=== PATIENT | female | born 1985 | race African-American/Black ===

== ENCOUNTER 2017-03-26 23:53 | Emergency (ER) | payer MEDICAID, SELFPAY ==
[2017-03-26 23:54] VITALS: BP 108/73; PULSE 77; RESP 16; TEMP 36.7; O2SAT 96; BMI 23.8
--- NOTE | 2017-03-27 00:20 | ED.DCSUM_ITS ---
- ER Visit Summary Date of Service: 03/27/17 Chief Complaint: [] Injury to right rib History of Present Illness: The patient is a 31 F patient was kicked in the right rib by her child while breast-feeding 4 hours ago. She is having some mild pain in the right rib when she takes deep breath. No shortness of breath. No home treatment. Physical Examination: [] Vital signs reviewed General: Well-nourished well-developed Head: Normocephalic atraumatic Eyes: Pupils equal round and reactive to light extraocular movements intact ENT: TMs clear no hemotympanum no trauma Neck: Nontender full range of motion Cardiovascular: Regular rate rhythm no murmurs normal S1-S2 Respiratory: No distress clear to auscultation bilaterally chest nontender Abdomen: Soft mild tenderness right mid anterior rib. No bony step-off deformity or contusion or swelling nondistended normal bowel sounds no masses Back: Nontender no CVA tenderness Extremities: Nontender active range of motion ?4 extremities no trauma Skin: Normal color no trauma Neuro alert oriented cranial nerves II through XII intact normal strength sensation reflexes Test Results: [] Emergency Department Course and Treatment: [] Patient reassured she just has a rib contusion. I do not feel she has a fracture. She will use NSAIDs and follow-up as an outpatient. I do not feel she needs an x-ray. Treatment Plan: [] Disposition: [] Impression: [] Right rib contusion This note was generated with [employer] dictation software. It may contain incorrect words, spelling, and punctuation that were not noted in review of the chart prior to signing ED Disposition - Plan for ED Patient: Chief Complaint: Chest Other Referrals: Mayra Maurer MD [Primary Care Provider] -
--- NOTE | 2017-03-27 00:20 | ED.DEP ---
ED Disposition - Plan for ED Patient: Disposition: Home or Assisted Living Chief Complaint: Chest Other Instructions: ED Contusion Rib Referrals: Mayra Maurer MD [Primary Care Provider] -
--- NOTE | 2017-03-27 00:32 | ED.RN ---
PT EDUCATED ON DISCHARGE INSTRUCTIONS AND VERBALIZES UNDERSTANDING. PT AMBULATORY HOME BY SELF WITH HER CHILDREN. EDUCATED TO TAKE IBUPROFEN AT HOME NEEDED. ICE CONTUSED ARE 20 MINUTES EVERY COUPLE HOURS.
== END 2017-03-27 00:33 | disposition home or self-care (01) ==
PROVIDERS: Emergency Provider Emergency Medicine; Family Provider Internal Medicine; PCP Internal Medicine
DX: S20.211A Contusion of right front wall of thorax, initial encounter (principal); W50.1XXA Accidental kick by another person, initial encounter; Y93.F9 Activity, other caregiving; Y92.9 Unspecified place or not applicable; Y99.9 Unspecified external cause status; Z79.899 Other long term (current) drug therapy
CPT/HCPCS: 99282

== ENCOUNTER 2017-05-01 23:05 | Emergency (ER) | payer MEDICAID, SELFPAY ==
[2017-05-01 23:06] VITALS: BP 113/72; PULSE 86; RESP 20; TEMP 36.7; O2SAT 99; BMI 24.0
--- NOTE | 2017-05-01 23:29 | ED.DCSUM_ITS ---
- ER Visit Summary Date of Service: 05/01/17 Chief Complaint: [] Child hit her left eye History of Present Illness: The patient is a 31 F [] her small 2-year-old child inadvertently moved her hand striking her in the left eye hours ago she feels if her eyes irritated she denies really any pain no change in vision no photophobia no blurriness she wears glasses she has history of severe anxiety with mental disorder she is concerned that something serious injury to her eye, her Physical Examination: [] No distress the left eye the anterior chambers intact the pupil reacts well there is no slit-lamp available for exam fluoroscopy seen tetracaine applied with cobalt blue light there is no signs of any uptake, her visual acuity is normal as she is able to read the small numbers on her medical record number sticker Face is unremarkable as is her cranial nerve exam Test Results: [] Emergency Department Course and Treatment: [] In all the above the patient at this time she will be started on some ice and topical ointments for ophthalmology as needed tomorrow for further management of this condition Treatment Plan: [] Disposition: [] Impression: [] Left eye irritation after inadvertently being struck by small child This note was generated with [employer] dictation software. It may contain incorrect words, spelling, and punctuation that were not noted in review of the chart prior to signing ED Disposition - Plan for ED Patient: Chief Complaint: Eye Problem Referrals: Mayra Maurer MD [Primary Care Provider] -
--- NOTE | 2017-05-01 23:29 | ED.DEP ---
ED Disposition - Plan for ED Patient: Chief Complaint: Eye Problem Instructions: Corneal Injury Referrals: Mayra Maurer MD [Primary Care Provider] - Jayleen Suresh MD [STAFF PHYSICIAN] -
[2017-05-01] MEDS: Erythromycin Base 1 OPTH.TUBE 1 APPLIC LEFT EYE (23:33)
[2017-05-01] MEDS: Tetracaine 0.5% Ophthalmic Bottle 1 DRP LEFT EYE (23:34)
== END 2017-05-01 23:47 | disposition home or self-care (01) ==
LOC: ED 23:44
PROVIDERS: Emergency Provider Emergency Medicine; Family Provider Internal Medicine; PCP Internal Medicine
DX: S05.92XA Unspecified injury of left eye and orbit, initial encounter (principal); W50.0XXA Accidental hit or strike by another person, initial encounter; Y93.9 Activity, unspecified; Y92.9 Unspecified place or not applicable; Y99.9 Unspecified external cause status; F41.9 Anxiety disorder, unspecified
CPT/HCPCS: 99282

== ENCOUNTER 2017-05-07 20:59 | Emergency (ER) | payer MEDICAID, SELFPAY ==
[2017-05-07 21:00] VITALS: BP 123/82; PULSE 77; RESP 16; TEMP 36.7; O2SAT 99; BMI 23.1
--- NOTE | 2017-05-07 22:17 | EKG12_ITS ---
Test Reason : CP Blood Pressure : / mmHG Vent. Rate : 077 BPM Atrial Rate : 077 BPM P-R Int : 134 ms QRS Dur : 088 ms QT Int : 380 ms P-R-T Axes : 061 077 070 degrees QTc Int : 430 ms Normal sinus rhythm Normal ECG Confirmed by DARWIN WATSON ([id number]), photo editor ELYSSA JACOBS ([id number]) on 05/12/2017 1:54:31 PM Referred By: RENAY Confirmed By:DARWIN WATSON
[2017-05-07] MEDS: 0.9% Normal Saline 1,000 ML 1000 ML IV (22:31)
[2017-05-07 22:57] LABS: Absolute Lymphocyte Count 3.02 X10^3/ul (0.83-4.51); Basophil# 0.04 X10^3/uL; Basophil% 0.5 % (0-1); Eosinophil# 0.46 X10^3/uL; Eosinophils% 5.7 % (0-5); Hematocrit 37.6 % (37-47); Hemoglobin 11.8 g/dl (12.0-15.0); Lymphocyte # 3.02 X10^3/ul (4.0); Lymphocyte % 37.4 % (19-41); Mean Corp Hgb Conc 31.4 g/gl (32-36); Mean Corpuscular Hgb 25.7 pg (27.0-32.0); Mean Corpuscular Volume 81.9 fL (81-99); Mean Platelet Vol. 11.2 fl (6.2-12.0); Monocyte# 0.55 X10^3/uL; Monocyte% 6.8 % (0-10); Neutrophil # 3.99 X10^3/uL (2.7-7.7); Neutrophil % 49.4 % (47-70); POSITIVE COUNT NO; POSITIVE DIFFERENTIAL NO; POSITIVE MORPHOLOGY NO; Platelet Count 225 K/mm3 (150-450); RBC Distribution Width CV 14.2 % (11.6-14.6); RBC Distribution Width SD 42.4 fl (35.1-43.9); Red Blood Count 4.59 M/mm3 (4.2-5.4); White Blood Count 8.1 K/mm3 (4.4-11.0)
[2017-05-07 23:01] LABS: Anion Gap 6 (5-15); BUN 11 mg/dL (7-18); BUN/Creat Ratio 15.6 RATIO (10-20); Calcium,Total 8.5 mg/dL (8.5-10.1); Chloride 110 mmol/L (98-107); Creatinine, Serum 0.71 mg/dL (0.55-1.02); EST Glomerular Filtration Rate 103 mL/min (>60); Est Glom Filt Rate - Afr Amer 124 mL/min (>60); Estimated Creatinine Clearance 100.05 ml/min; Glucose 83 mg/dL (74-106); Potassium 4.4 mmol/L (3.5-5.1); Sodium Level 143 mmol/L (136-145)
--- NOTE | 2017-05-07 23:13 | ED.VISSUMM ---
- ER Visit Summary Date of Service: 05/07/17 Chief Complaint: Chest pain History of Present Illness: The patient is a 31 F presenting for evaluation secondary chest pain. Patient states that today at approximately 1300 she started to have chest pain that radiated down her left arm. Patient states that she has had similar symptoms in the past with anxiety as well as her esophagitis, but this did not alleviate throughout the course of the day today. Patient states that it started when she was driving her kids and they were screaming in the car. She denies any cardiac risk factors any DVT or PE risk factors she is a non-smoker review of systems otherwise negative. Physical Examination: Vital signs are within normal limits, patient is afebrile. General: Patient is well-nourished well-developed and in no acute distress. Head: Normocephalic, atraumatic Eyes: Pupils equal round and reactive bilaterally, extra occular motion intact bialterally ENT: Moist mucous membranes Neck: Supple, no lymphadenopathy, no JVD, no meningismus CVS: Heart regular rate and rhythm, no murmurs, rubs or gallops, radial pulses 2+ bilaterally Resp: Respirations nondistressed, lung sounds clear bilaterally Abdomen: Soft, nontender, nondistended, no palpable masses, normal bowel sounds Back: Nontender Extremities: Nontender, atraumatic, active full range of motion, no peripheral edema Skin: warm, no rashes, no petechia Neuro: Alert and oriented x 4, CN 2-12 intact, no lateralizing neurological defecits Psyc: Normal affect Test Results: CBC, chemistry, troponin within normal limits Emergency Department Course and Treatment: Patient presented for evaluation secondary chest pain. Patient has had continuous pain over the course of the last 9 hours. She had a negative cardiac enzyme. Her pain improved with GI cocktail. She has a MANNY risk score of 0 heart score of 0 I do not believe that she requires further workup. Potentially this was secondary to her esophagitis or anxiety. She was recommended follow-up with primary care. Disposition: Discharge Impression: 1. Noncardiac chest pain 2. Anxiety This note was generated with [employer] software. It may contain incorrect words, spelling, and punctuation that were not noted in review of the chart prior to signing ED Disposition - Plan for ED Patient: Disposition: Home or Assisted Living Chief Complaint: Anxiety Diagnosis: Anxiety Instructions: ED Stress React Referrals: Mayra Maurer MD [Primary Care Provider] - As Needed
--- NOTE | 2017-05-07 23:16 | ED.DCSUM_ITS ---
- ER Visit Summary Date of Service: 05/07/17 Chief Complaint: Chest pain History of Present Illness: The patient is a 31 F presenting for evaluation secondary chest pain. Patient states that today at approximately 1300 she started to have chest pain that radiated down her left arm. Patient states that she has had similar symptoms in the past with anxiety as well as her esophagitis, but this did not alleviate throughout the course of the day today. Patient states that it started when she was driving her kids and they were screaming in the car. She denies any cardiac risk factors any DVT or PE risk factors she is a non-smoker review of systems otherwise negative. Physical Examination: Vital signs are within normal limits, patient is afebrile. General: Patient is well-nourished well-developed and in no acute distress. Head: Normocephalic, atraumatic Eyes: Pupils equal round and reactive bilaterally, extra occular motion intact bialterally ENT: Moist mucous membranes Neck: Supple, no lymphadenopathy, no JVD, no meningismus CVS: Heart regular rate and rhythm, no murmurs, rubs or gallops, radial pulses 2 + bilaterally Resp: Respirations nondistressed, lung sounds clear bilaterally Abdomen: Soft, nontender, nondistended, no palpable masses, normal bowel sounds Back: Nontender Extremities: Nontender, atraumatic, active full range of motion, no peripheral edema Skin: warm, no rashes, no petechia Neuro: Alert and oriented x 4, CN 2-12 intact, no lateralizing neurological defecits Psyc: Normal affect Test Results: CBC, chemistry, troponin within normal limits Emergency Department Course and Treatment: Patient presented for evaluation secondary chest pain. Patient has had continuous pain over the course of the last 9 hours. She had a negative cardiac enzyme. Her pain improved with GI cocktail. She has a MANNY risk score of 0 heart score of 0 I do not believe that she requires further workup. Potentially this was secondary to her esophagitis or anxiety. She was recommended follow-up with primary care. Disposition: Discharge Impression: 1. Noncardiac chest pain 2. Anxiety This note was generated with [employer] software. It may contain incorrect words, spelling, and punctuation that were not noted in review of the chart prior to signing ED Disposition - Plan for ED Patient: Disposition: Home or Assisted Living Chief Complaint: Anxiety Diagnosis: Anxiety Instructions: ED Stress React Referrals: Mayra Maurer MD [Primary Care Provider] - As Needed
[2017-05-07 23:23] VITALS: BP 114/78; PULSE 81; RESP 23; O2SAT 99
== END 2017-05-07 23:23 | disposition home or self-care (01) ==
PROVIDERS: Emergency Provider Emergency Medicine; Family Provider Internal Medicine; PCP Internal Medicine
DX: R07.89 Other chest pain (principal); F41.9 Anxiety disorder, unspecified; Z79.899 Other long term (current) drug therapy; Z87.19 Personal history of other diseases of the digestive system
CPT/HCPCS: 80048; 84484; 85025; 93005; 96360; 99285; J7030; A4216

== ENCOUNTER 2017-06-26 11:03 | Emergency (ER) | payer MEDICAID, SELFPAY ==
[2017-06-26 11:05] VITALS: BP 111/81; PULSE 90; RESP 16; TEMP 36.6; O2SAT 100; BMI 24.5
[2017-06-26] MEDS: 0.9% Normal Saline 1,000 ML 999 ML IV (11:45)
[2017-06-26] MEDS: Ondansetron 4 MG/2 ML Vial IV (11:50)
[2017-06-26] MEDS: Acetaminophen 500 MG Tablet 1000 MG PO (11:50)
--- NOTE | 2017-06-26 12:04 | ED.DCSUM_ITS ---
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 She reports that she has congestion that began 3 weeks ago[address] She saw Dr. García 1 week ago and was told this was viral. She went to urgent care 2 days ago and was placed on doxycycline. States that now she feels nauseated. She denies any fever or chills. She has right ear pain. She denies any abdominal pain, vomiting, or diarrhea. She reports that she has a thumping headache that is similar to her prior headaches. Is 10 out of 10 severity. Physical Examination: Vitals: Stable. Afebrile. General: Well-nourished and well-developed. Head: Normocephalic atraumatic. HEENT: TMs are within normal limits. She does have swollen turbinates. Neck: Supple, no lymphadenopathy. No JVD. Nontender. Cardiovascular: Regular rate and rhythm. No murmurs. Respiratory: No respiratory distress. Clear to auscultation bilaterally. Abdominal: Soft, nontender, nondistended, normal bowel sounds. No guarding, rebound, or peritoneal signs. Back: Nontender. Extremities: Nontender, no edema. Skin: Normal color, no rash. Neurologic: Alert and oriented ?3. Cranial nerves II through XII are intact. Normal strength and sensation. Psych: Normal affect. Emergency Department Course and Treatment: Had an IV placed and was given a liter bolus normal saline. She is given Tylenol for pain. She is resting comfortably. Treatment Plan: Discussed the patient that antibiotics are not indicated for this and that if she is nauseated from the doxycycline I would stop taking it. She is given a prescription for Flonase. He refused decongestants. Instructed to follow-up her primary care physician 1 week if not improving. Disposition: To home in improved and stable condition. Impression: 1. Sinus congestion. This note was generated with [email or web address] dictation software. It may contain incorrect words, spelling, and punctuation that were not noted in review of the chart prior to signing ED Disposition - Plan for ED Patient: Disposition: Home or Assisted Living Chief Complaint: Cold Sx Instructions: ED Sinusitis No Abx Prescriptions: Fluticasone Propionate [Flonase Allergy Relief] 9.9 ml NS DAILY #1 bottle Referrals: Mayra Maurer MD [Primary Care Provider] - 1 Week if not improving
[2017-06-26 12:53] VITALS: BP 115/70; PULSE 85; RESP 14; O2SAT 98
== END 2017-06-26 12:54 | disposition home or self-care (01) ==
LOC: ED 12:07
PROVIDERS: Emergency Provider Emergency Medicine; Family Provider Internal Medicine; PCP Internal Medicine
DX: R09.81 Nasal congestion (principal); R51 Headache; R11.0 Nausea; H92.01 Otalgia, right ear
CPT/HCPCS: 96361; 96374; 99283; J7030; A4216; J2405

== ENCOUNTER → 2017-08-07 14:12 | Outpatient (CLI) | payer MEDICAID, SELFPAY ==
[2017-08-11 20:09] LABS: Alternaria tenuis <0.10 kU/L (Class 0); Ash, White <0.10 kU/L (Class 0); Aspergillus fumigatus <0.10 kU/L (Class 0); Bermuda Grass <0.10 kU/L (Class 0); Birch <0.10 kU/L (Class 0); Black Walnut <0.10 kU/L (Class 0); Cat Hair / Dander,Stand <0.10 kU/L (Class 0); Cedar, Mountain <0.10 kU/L (Class 0); Cladosporium herbarum <0.10 kU/L (Class 0); Cockroach, American 0.36 kU/L (Class I); Cottonwood <0.10 kU/L (Class 0); Dog Epithelia <0.10 kU/L (Class 0); Elm, American White <0.10 kU/L (Class 0); Immunoglobulin E 30 IU/mL (0-100); Maple/Box Elder <0.10 kU/L (Class 0); Mulberry, White <0.10 kU/L (Class 0); Oak, White <0.10 kU/L (Class 0); Pecan <0.10 kU/L (Class 0); Penicillium Notatum <0.10 kU/L (Class 0); Pigweed, Rough <0.10 kU/L (Class 0); Ragweed, Short/Common <0.10 kU/L (Class 0); Russian Thistle <0.10 kU/L (Class 0); Sheep Sorrel <0.10 kU/L (Class 0); Sycamore, American <0.10 kU/L (Class 0); Timothy Grass <0.10 kU/L (Class 0)
[2017-08-12 15:32] LABS: Mouse Urine <0.10 kU/L (Class 0)
== END ==
PROVIDERS: Family Provider Internal Medicine; PCP Internal Medicine; Visit Provider Otolaryngology
DX: T78.40XA Allergy, unspecified, initial encounter (principal)
CPT/HCPCS: 36415; 82785; 86003

== ENCOUNTER 2017-09-01 05:44 | Emergency (ER) | payer MEDICAID, SELFPAY ==
[2017-09-01 05:45] VITALS: BP 109/76; PULSE 67; RESP 18; TEMP 36.4; O2SAT 100; BMI 26.3
--- NOTE | 2017-09-01 06:07 | RAD_ITS ---
STUDY: X-RAY - PELVIS AND RIGHT HIPS REASON FOR EXAM: Female, 32 years old. Pain in the hip. Patient was kicked in the hip by a child. TECHNIQUE: Radiological exam, right hip, with pelvis, 3 views COMPARISON: None. FINDINGS: There is a non-specific bowel gas pattern. Normal visualized soft tissue structures. Normal bilateral iliac wings, sacroiliac joints and visualized sacrum. Normal bilateral superior and inferior pubic rami. Normal pubic symphysis. Normal bilateral ischial tuberosities. There is a 9 mm well-circumscribed sclerotic density in the right femoral neck, which is likely to represent a benign bone island. Otherwise normal visualized right femoral head. Normal right acetabulum. Normal right hip joint. RAD/Hip 2-3 Views with Pelvis IMPRESSION: No demonstrated fracture, dislocation, or destructive osseous lesion. Electronically Signed: Rey Schwab MD at 7:01 EDT , Service support ,
--- NOTE | 2017-09-01 06:10 | ED.DCSUM_ITS ---
- ER Visit Summary Date of Service: 09/01/17 Chief Complaint: Right hip pain History of Present Illness: The patient is a 32 F presenting with right hip pain ?2 days. Patient states that she was playing with her 3-year-old and she was kicked in the right hip. She has had persistent pain for the past 2 days. She has pain with ambulation. She also now complains of burning with urination. Denies fever or other complaints. Physical Examination: Vitals are stable. Patient is afebrile. Alert no acute distress. HEENT exam is unremarkable. Neck is supple. Lungs are clear and equal bilaterally. Heart is regular rate and rhythm. Abdomen is soft nontender nondistended. Back: Right paraspinal lumbar muscle tenderness, no midline tenderness Extremities right lateral hip tenderness with active full range of motion Skin is warm and dry. No focal neurologic deficit. Remainder of exam is unremarkable. Emergency Department Course and Treatment: X-ray of right hip shows no acute process. Urinalysis is unremarkable. Patient is given a prescription for naproxen. She is advised to follow-up with her primary care physician. Advised to return to ED for worsening complaints. Disposition: Discharge home Impression: Right hip contusion This note was generated with [employer] dictation software. It may contain incorrect words, spelling, and punctuation that were not noted in review of the chart prior to signing ED Disposition - Plan for ED Patient: Chief Complaint: Lower Extremity Injury Referrals: Mayra Maurer MD [Primary Care Provider] -
[2017-09-01 06:57] LABS: Bacteria 0 SEEN /hpf (None Seen); Mucous, Urine 0 SEEN /hpf (<or=2+); Red Blood Cells-Urine 0 SEEN /hpf (0-5); White Blood Cells 0 SEEN /hpf (0-5)
[2017-09-01 07:00] LABS: Color, Urine Straw (Yellow); Glucose, Dipstick Normal (Normal); Ketone-Dipstick Negative (Negative); Leukocyte Esterase-Dipstick Negative /ul (Negative); Nitrite-Dipstick Negative (Negative); Occult Blood-Urine Negative /ul (Negative); Protein-Dipstick Negative (Negative); Specific Gravity, Urine 1.005 (1.002-1.030); Urine Bilirubin Dipstick Negative (Negative); Urine Clarity Clear (Clear); Urine Urobilinogen Normal (Normal); Urine pH 6.5 (5.0 - 8.0)
[2017-09-01 07:06] LABS: Squamous Epithelial Cells - UA 0-5 SEEN /hpf (5-10)
--- NOTE | 2017-09-01 07:40 | ED.DEP ---
ED Disposition - Plan for ED Patient: Chief Complaint: Lower Extremity Injury Instructions: ED Contusion Hip Prescriptions: Naproxen [Naprosyn] 500 mg PO BID PRN #20 tablet Referrals: Mayra Maurer MD [Primary Care Provider] -
== END 2017-09-01 08:05 | disposition home or self-care (01) ==
LOC: ED 06:38
PROVIDERS: Emergency Provider Emergency Medicine; Family Provider Internal Medicine; PCP Internal Medicine
DX: S70.01XA Contusion of right hip, initial encounter (principal); W50.1XXA Accidental kick by another person, initial encounter; Y93.9 Activity, unspecified; Y92.9 Unspecified place or not applicable; Y99.9 Unspecified external cause status; R30.0 Dysuria; F32.9 Major depressive disorder, single episode, unspecified; F41.9 Anxiety disorder, unspecified; Z79.899 Other long term (current) drug therapy
CPT/HCPCS: 73502; 81001; 99282

== ENCOUNTER → 2017-09-26 13:54 | Outpatient (CLI) | payer MEDICAID, SELFPAY ==
--- NOTE | 2017-09-26 13:58 | RAD_ITS ---
STUDY: X-RAY - LUMBAR SPINE REASON FOR EXAM: Female, 32 years old. Low back pain. TECHNIQUE: 5 view(s) of the lumbar spine were obtained. COMPARISON: None FINDINGS: Normal lumbar lordosis. There is no substantial scoliosis. There is a normal alignment of the vertebrae. Normal vertebral bodies and endplates. Normal disc space heights. There is no demonstrated fracture. The soft tissue structures are unremarkable. RAD/L/S Spine Min 4 Views IMPRESSION: Normal x-ray examination of the lumbar spine. Electronically Signed: Partha Talbert MD at 23:57 EDT , Service support ,
== END ==
PROVIDERS: Family Provider Internal Medicine; PCP Internal Medicine; Visit Provider Chiropractor
DX: S33.5XXA Sprain of ligaments of lumbar spine, initial encounter (principal); X58.XXXA Exposure to other specified factors, initial encounter; Y93.9 Activity, unspecified; Y92.9 Unspecified place or not applicable; Y99.9 Unspecified external cause status
CPT/HCPCS: 72110

== ENCOUNTER 2017-09-29 00:51 | Emergency (ER) | payer MEDICAID, SELFPAY ==
[2017-09-29 00:52] VITALS: BP 127/98; PULSE 84; RESP 15; TEMP 36.4; O2SAT 98; BMI 24.0
--- NOTE | 2017-09-29 01:02 | ED.VISSUMM ---
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 She reports that this morning while at work she hit her left ankle in a wheelchair. She reports that she worked for 12 hours after this. She did not have pain throughout that. However, she reports that tonight she has a burning pain Zeta 10 with walking and 6 out of 10 at rest. She denies any other complaints. Physical Examination: Vitals: Stable. Afebrile. General: Well-nourished and well-developed. Head: Normocephalic atraumatic. Neck: Supple, no lymphadenopathy. No JVD. Nontender. Cardiovascular: Regular rate and rhythm. No murmurs. Respiratory: No respiratory distress. Clear to auscultation bilaterally. Abdominal: Soft, nontender, nondistended, normal bowel sounds. No guarding, rebound, or peritoneal signs. Back: Nontender. Extremities: Soft tissue swelling is moderately tender to palpation over the anterior lateral portion of her left ankle. She has no pain over the medial or lateral malleoli. No pain over the base the fifth metatarsal proximal fibula., no edema. Skin: Normal color, no rash. Neurologic: Alert and oriented ?3. Cranial nerves II through XII are intact. Normal strength and sensation. Psych: Normal affect. Emergency Department Course and Treatment: I did offer to obtain x-rays. Patient does not want these. She refused pain medications. Treatment Plan: Patient will be discharged instructions to use Tylenol and/or ibuprofen for pain. Follow-up Dr. Maurer in 1 week if not improving. Disposition: To home in improved and stable condition. Impression: 1. Contusion left ankle. This note was generated with [employer] dictation software. It may contain incorrect words, spelling, and punctuation that were not noted in review of the chart prior to signing ED Disposition - Plan for ED Patient: Chief Complaint: Lower Extremity Injury Instructions: ED Contusion Foot Referrals: Mayra Maurer MD [Primary Care Provider] - 1 Week if not improving
== END 2017-09-29 01:17 | disposition home or self-care (01) ==
PROVIDERS: Emergency Provider Emergency Medicine; Family Provider Internal Medicine; PCP Internal Medicine
DX: S90.02XA Contusion of left ankle, initial encounter (principal); W22.8XXA Striking against or struck by other objects, initial encounter; Y93.9 Activity, unspecified; Y92.89 Other specified places as the place of occurrence of the external cause; Y99.0 Civilian activity done for income or pay; F32.9 Major depressive disorder, single episode, unspecified; F41.9 Anxiety disorder, unspecified; Z79.899 Other long term (current) drug therapy
CPT/HCPCS: 99282

== ENCOUNTER 2017-10-05 04:20 | Emergency (ER) | payer MEDICAID, SELFPAY ==
[2017-10-05 04:21] VITALS: BP 128/88; PULSE 79; RESP 16; TEMP 36.4; O2SAT 100; BMI 25.4
[2017-10-05 04:26] VITALS: BP 110/67; BP 117/71; BP 123/89; PULSE 71; PULSE 74; PULSE 87
--- NOTE | 2017-10-05 04:37 | ED.VISSUMM ---
- ER Visit Summary Date of Service: 10/05/17 Chief Complaint: Subjective dizziness History of Present Illness: The patient is a 32 F thinks she may be dehydrated. Past medical history of anxiety and depression. Prior anemia. Patient states that she feels dizzy. Denies any current headache or head trauma. Denies any trouble moving her arms or legs. No visual change. No speech change. No numbness. Think she may not be drinking enough. Denies nausea, vomiting, diarrhea or melena. Denies any fever, chest pain or shortness of breath. Physical Examination: Well appearing young female. Vital signs are stable and afebrile. Blood pressure 128/88. Pulse ox 100% on room air. No distress. H EENT exam normal. Moist wheeze membranes. Pupils round reactive light. Extra motions are intact. No facial droop. Normal speech. Neck nontender. No lymphadenopathy. Lungs clear to auscultation bilaterally. Heart regular rhythm rate about 80 no murmur chest wall nontender. Abdomen soft nontender. Normal bowel sounds no peritoneal signs. She is moving all 4 extremities. They are neurovascularly intact. 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 Bilateral equal symmetrical dorsi and plantar flexion. Calves are nontender without edema. She has normal range of motion of both upper and lower extremities. Back exam is nontender. Neurologic exam is normal. NIH is 0. Fingertip to nose and heel to choi all within normal limits. Normal strength and sensation bilaterally. Negative Hallpike maneuver. Test Results: None other than orthostatic vital signs are negative. Emergency Department Course and Treatment: Clinically patient has a normal exam. Hallpike (-). Has no signs of any abnormality or neurological findings. Her neurologic exam is completely normal. Treatment Plan: Orally hydrate at home. Discharge. Disposition: Discharge Impression: Acute dizziness uncertain etiology Anxiety This note was generated with [employer] dictation software. It may contain incorrect words, spelling, and punctuation that were not noted in review of the chart prior to signing ED Disposition - Plan for ED Patient: Chief Complaint: Dizziness Referrals: Mayra Maurer MD [Primary Care Provider] -
--- NOTE | 2017-10-05 04:41 | ED.DEP ---
ED Disposition - Plan for ED Patient: Disposition: Home or Assisted Living Chief Complaint: Dizziness Instructions: ED Dizziness [facility] Referrals: Mayra Maurer MD [Primary Care Provider] - 3-5 Days if not improving Additional Instructions: Plenty of fluids and rest. Your exam tonight was normal. Orally hydrate with water and/or Gatorade.
== END 2017-10-05 04:48 | disposition home or self-care (01) ==
PROVIDERS: Emergency Provider Emergency Medicine; Family Provider Internal Medicine; PCP Internal Medicine
DX: R42 Dizziness and giddiness (principal); D64.9 Anemia, unspecified; F32.9 Major depressive disorder, single episode, unspecified; F41.9 Anxiety disorder, unspecified; Z79.899 Other long term (current) drug therapy
CPT/HCPCS: 99283

== ENCOUNTER 2017-10-18 22:15 | Emergency (ER) | payer MEDICAID, SELFPAY ==
[2017-10-18 22:15] VITALS: BP 130/75; PULSE 91; RESP 16; TEMP 37.2; O2SAT 98; BMI 24.0
--- NOTE | 2017-10-18 22:27 | ED.VISSUMM ---
- ER Visit Summary Date of Service: 10/18/17 Chief Complaint: Mouth pain History of Present Illness: The patient is a 32 F with mouth pain for several days. The patient had dental filling. She believes the drilled nicked the side of her bucchal mucosa. She noted a blister to the area that popped. The area is painful, worse with chewing. No trouble opening her mouth. No tongue elevation. No difficulty talking, breathing, or swallowing. No fever or systemic symptoms. Physical Examination: Afebrile and vital signs unremarkable. Patient has a superficial ulcer to her right bucchal mucosa adjacent to her mandibular molars, approximately 1 cm? in total area. No bleeding or discharge noted. The remainder of her exam is unremarkable. Test Results: None indicated Emergency Department Course and Treatment: Patient treated with a GI cocktail. She may use a mix of Benadryl and Maalox at home, swish and spit as needed for pain. I suspect this area will heal fairly quickly. She should follow-up with her dentist for recheck. Return sooner if she is unable to follow-up or if she has any complications. Treatment Plan: As above Disposition: Discharge Impression: 1. Oral superficial ulceration This note was generated with [employer] dictation software. It may contain incorrect words, spelling, and punctuation that were not noted in review of the chart prior to signing ED Disposition - Plan for ED Patient: Chief Complaint: Dental Referrals: Mayra Maurer MD [Primary Care Provider] -
--- NOTE | 2017-10-18 22:31 | ED.DCSUM_ITS ---
- ER Visit Summary Date of Service: 10/18/17 Chief Complaint: Mouth pain History of Present Illness: The patient is a 32 F with mouth pain for several days. The patient had dental filling. She believes the drilled nicked the side of her bucchal mucosa. She noted a blister to the area that popped. The area is painful, worse with chewing. No trouble opening her mouth. No tongue elevation. No difficulty talking, breathing, or swallowing. No fever or systemic symptoms. Physical Examination: Afebrile and vital signs unremarkable. Patient has a superficial ulcer to her right bucchal mucosa adjacent to her mandibular molars , approximately 1 cm? in total area. No bleeding or discharge noted. The remainder of her exam is unremarkable. Test Results: None indicated Emergency Department Course and Treatment: Patient treated with a GI cocktail. She may use a mix of Benadryl and Maalox at home, swish and spit as needed for pain. I suspect this area will heal fairly quickly. She should follow-up with her dentist for recheck. Return sooner if she is unable to follow-up or if she has any complications. Treatment Plan: As above Disposition: Discharge Impression: 1. Oral superficial ulceration This note was generated with [employer] dictation software. It may contain incorrect words, spelling, and punctuation that were not noted in review of the chart prior to signing ED Disposition - Plan for ED Patient: Chief Complaint: Dental Referrals: Mayra Maurer MD [Primary Care Provider] -
--- NOTE | 2017-10-18 22:32 | ED.DEP ---
ED Disposition - Plan for ED Patient: Chief Complaint: Dental Instructions: ED Jackeline Oglesby Additional Instructions: follow up with your dentist for a recheck
[2017-10-18] MEDS: Mag Hydrox/Al Hydrox/Simeth 30 ML UDC PO (22:42)
[2017-10-18 22:46] VITALS: RESP 18
== END 2017-10-18 22:47 | disposition home or self-care (01) ==
PROVIDERS: Emergency Provider Emergency Medicine; Family Provider Internal Medicine; PCP Internal Medicine
DX: K12.1 Other forms of stomatitis (principal); Z87.891 Personal history of nicotine dependence; Z79.899 Other long term (current) drug therapy
CPT/HCPCS: 99283

== ENCOUNTER 2017-10-27 18:54 | Emergency (ER) | payer MEDICAID, SELFPAY ==
[2017-10-27 18:55] VITALS: BP 112/71; PULSE 81; RESP 16; TEMP 36.7; O2SAT 97; BMI 24.0
--- NOTE | 2017-10-27 19:10 | ED.VISSUMM ---
- ER Visit Summary Date of Service: 10/27/17 Chief Complaint: Hand twitching History of Present Illness: The patient is a 32 F who states that her hand is twitching. It started this morning. She states that her hand felt weak. She had a couple coffee this morning it started after that. Denies any pain. No other symptoms. Physical Examination: Left hand exam reveals 5 out of 5 strength. She has no tremors at this time. No muscle spasms. Her sensation is intact. She is neurovascularly intact. Test Results: None performed Emergency Department Course and Treatment: Patient has no physical exam findings at this time. She will increase hydration and will follow up with her PCP Treatment Plan: [] Disposition: Discharge Impression: Muscle spasm, resolved This note was generated with [employer] dictation software. It may contain incorrect words, spelling, and punctuation that were not noted in review of the chart prior to signing ED Disposition - Plan for ED Patient: Chief Complaint: Upper Extremity Injury Referrals: Mayra Maurer MD [Primary Care Provider] -
--- NOTE | 2017-10-27 19:12 | ED.DEP ---
ED Disposition - Plan for ED Patient: Disposition: Home or Assisted Living Chief Complaint: Upper Extremity Injury Instructions: ED Spasm Muscle Referrals: Mayra Maurer MD [Primary Care Provider] -
== END 2017-10-27 19:16 | disposition home or self-care (01) ==
PROVIDERS: Emergency Provider Emergency Medicine; Family Provider Internal Medicine; PCP Internal Medicine
DX: M62.838 Other muscle spasm (principal)
CPT/HCPCS: 99282

== ENCOUNTER 2017-11-24 18:15 | Emergency (ER) | payer MEDICAID, SELFPAY ==
[2017-11-24 18:15] VITALS: BP 124/81; PULSE 95; RESP 18; TEMP 37.1; O2SAT 99; BMI 24.0
--- NOTE | 2017-11-24 19:02 | ED.DCSUM_ITS ---
- ER Visit Summary Date of Service: 11/24/17 Chief Complaint: Dental pain History of Present Illness: The patient is a 32 F who was seen by her dentist 5 days ago for right lower dental pain. She states nothing was done at that time. She went back today due to continued pain. She states she was told there is an infected tooth and she was prescribed clindamycin. Plan is to do a root canal in 2 days. Patient states she was not given anything for pain and she has not been able to sleep secondary to the pain. She states she has multiple food allergies and has to drink a special formula for calories. She states anything that she tries to drink jeter and stings in her mouth. Physical Examination: Vital signs are unremarkable. Patient sitting upright in the bed. She is tearful. Head neck examination reveals no facial edema or erythema. TMs are clear bilaterally. Intraoral examination reveals right mandibular third molar to be discolored and tender. She has mild surrounding gum edema. Uvula is midline. There is no trismus. She has moist mucous membranes. She is speaking with a strong voice. Neck is supple. Heart is regular rate and rhythm. Lung sounds are clear. Test Results: [] Emergency Department Course and Treatment: Patient did drive herself here to the emergency room. I will give her a short course of Percocet along with Zofran. She was given clindamycin. Prescription was written for 150 mg, 1 tab every 6 hours. I advised her she could take 2 tabs every 6 hours for correct dosing. She is to see the dentist in 2 days as planned. Treatment Plan: [] Disposition: Discharge Impression: Odontalgia This note was generated with [employer] dictation software. It may contain incorrect words, spelling, and punctuation that were not noted in review of the chart prior to signing ED Disposition - Plan for ED Patient: Chief Complaint: Dental Referrals: Mayra Maurer MD [Primary Care Provider] -
--- NOTE | 2017-11-24 19:02 | ED.DEP ---
ED Disposition - Plan for ED Patient: Disposition: Home or Assisted Living Chief Complaint: Dental Instructions: ED Tooth Pain Prescriptions: Ondansetron [Zofran Odt] 4 mg PO Q6H PRN PRN #10 tablet PRN Reason: Nausea Oxycodone HCl/Acetaminophen [Percocet 5/325] 1 tablet PO Q6H PRN PRN 3 Days #12 tablet PRN Reason: Pain Additional Instructions: Follow-up with your dentist on Friday as scheduled.
[2017-11-24 19:11] VITALS: BP 115/80; PULSE 90; RESP 15; O2SAT 98
== END 2017-11-24 19:19 | disposition home or self-care (01) ==
PROVIDERS: Emergency Provider Emergency Medicine; Family Provider Internal Medicine; PCP Internal Medicine
DX: K08.89 Other specified disorders of teeth and supporting structures (principal); Z91.018 Allergy to other foods; Z79.899 Other long term (current) drug therapy
CPT/HCPCS: 99282

== ENCOUNTER 2017-12-08 20:21 | Emergency (ER) | payer MEDICAID, SELFPAY ==
[2017-12-08 20:21] VITALS: BP 133/74; PULSE 73; RESP 14; TEMP 37; O2SAT 97; BMI 23.6
--- NOTE | 2017-12-08 20:39 | EKG12_ITS ---
Test Reason : CP Blood Pressure : / mmHG Vent. Rate : 068 BPM Atrial Rate : 068 BPM P-R Int : 142 ms QRS Dur : 078 ms QT Int : 388 ms P-R-T Axes : 073 088 084 degrees QTc Int : 412 ms Normal sinus rhythm Normal ECG Confirmed by RAVINDRA RAYMOND, MARTY ([id number]), food editor ELYSSA JACOBS ([id number]) on 12/11/2017 11:12:46 AM Referred By: ED PHYSICIAN Confirmed By:MARTY WAITE MD
[2017-12-08 20:56] LABS: Absolute Neutrophil Count 4.2 X10^3/uL (2.0-7.7); Basophil# 0.03 X10^3/uL; Basophil% 0.4 % (0-1); Eosinophil# 0.26 X10^3/uL; Eosinophils% 3.4 % (0-5); Hematocrit 38.8 % (37-47); Hemoglobin 12.2 g/dl (12.0-15.0); Lymphocyte % 35.6 % (19-41); Mean Corp Hgb Conc 31.4 g/gl (32-36); Mean Corpuscular Hgb 25.5 pg (27.0-32.0); Mean Corpuscular Volume 81.2 fL (81-99); Mean Platelet Vol. 11.5 fl (6.2-12.0); Monocyte# 0.36 X10^3/uL; Monocyte% 4.7 % (0-10); Neutrophil # 4.24 X10^3/uL (2.7-7.7); Neutrophil % 55.9 % (47-70); POSITIVE COUNT NO; POSITIVE DIFFERENTIAL NO; POSITIVE MORPHOLOGY NO; Platelet Count 263 K/mm3 (150-450); RBC Distribution Width CV 13.4 % (11.6-14.6); RBC Distribution Width SD 39.8 fl (35.1-43.9); Red Blood Count 4.78 M/mm3 (4.2-5.4); White Blood Count 7.6 K/mm3 (4.4-11.0)
[2017-12-08 21:04] VITALS: O2SAT 99
--- NOTE | 2017-12-08 21:15 | RAD_ITS ---
STUDY: X-RAY CHEST REASON FOR EXAM: Female, 32 years old. Chest tightness TECHNIQUE: Single AP portable view of the chest. COMPARISON: None. FINDINGS: The lungs are clear and expanded. There is no demonstrated pleural abnormality. Normal size heart. Normal mediastinum and miguel. Normal visualized pulmonary arteries. Normal visualized aortic arch and descending thoracic aorta. Normal visualized thoracic spine. Normal visualized ribs, clavicles, and shoulders. There is no demonstrated abnormality of the visualized soft tissue structures of the upper abdomen. RAD/Chest 1 View (Portable) IMPRESSION: Normal x-ray examination of the chest. Electronically Signed: Chris Jaramillo MD at 21:42 EDT , Service support ,
[2017-12-08 21:23] LABS: Anion Gap 5 (5-15); BUN 8 mg/dL (7-18); BUN/Creat Ratio 8.8 RATIO (10-20); Calcium,Total 8.7 mg/dL (8.5-10.1); Chloride 107 mmol/L (98-107); EST Glomerular Filtration Rate 77 mL/min (>60); Est Glom Filt Rate - Afr Amer 93 mL/min (>60); Estimated Creatinine Clearance 78.21 ml/min; Glucose 90 mg/dL (74-106); Potassium 4.6 mmol/L (3.5-5.1); Sodium Level 138 mmol/L (136-145)
[2017-12-08 22:21] VITALS: BP 114/88; PULSE 68; RESP 17; O2SAT 100
[2017-12-08] MEDS: 0.9% Normal Saline 1,000 ML 999 ML IV (22:22)
--- NOTE | 2017-12-08 23:10 | ED.DCSUM_ITS ---
- ER Visit Summary Date of Service: 12/08/17 Chief Complaint: Chest tightness, anxiety History of Present Illness: The patient is a 32 F who reports chest tightness today. She is not sure if is related to anxiety or not. She denies shortness of breath or diaphoresis. Physical Examination: Vital signs unremarkable. Patient sitting upright in bed. She is in no acute distress. She does have dry mucous membranes. Heart is regular rate and rhythm. Lung sounds are clear. She does have anterior chest wall tenderness on either side of the sternum. There is no crepitus. Abdomen is soft nontender. Neuro exam is unremarkable. Test Results: EKG is sinus at 68 with no sign of acute ischemia. CBC and chemistry studies normal. Troponin negative. Chest x-ray unremarkable. Emergency Department Course and Treatment: Patient is given a liter IV fluids along with Toradol. She will be given a prescription for Toradol tabs at home if needed for chest wall pain. Treatment Plan: [] Disposition: Discharge Impression: Chest wall strain This note was generated with [employer] dictation software. It may contain incorrect words, spelling, and punctuation that were not noted in review of the chart prior to signing ED Disposition - Plan for ED Patient: Chief Complaint: Chest Pain Referrals: Mayra Maurer MD [Primary Care Provider] -
--- NOTE | 2017-12-08 23:10 | ED.DEP ---
ED Disposition - Plan for ED Patient: Disposition: Home or Assisted Living Chief Complaint: Chest Pain Instructions: ED Strain Chest Wall Prescriptions: Ketorolac [Toradol] 10 mg PO Q6H PRN #14 tablet PRN Reason: Pain Referrals: Mayra Maurer MD [Primary Care Provider] - 1 Week if not improving
[2017-12-08] MEDS: Ketorolac 30 MG/ML Syringe IV (23:19)
[2017-12-08 23:21] VITALS: BP 117/93; PULSE 76; RESP 18; O2SAT 100
== END 2017-12-08 23:25 | disposition home or self-care (01) ==
PROVIDERS: Emergency Provider Emergency Medicine; Family Provider Internal Medicine; PCP Internal Medicine
DX: S29.012A Strain of muscle and tendon of back wall of thorax, initial encounter (principal); X58.XXXA Exposure to other specified factors, initial encounter; Y93.9 Activity, unspecified; Y92.9 Unspecified place or not applicable; Y99.9 Unspecified external cause status; F32.9 Major depressive disorder, single episode, unspecified; F41.9 Anxiety disorder, unspecified; Z79.899 Other long term (current) drug therapy
CPT/HCPCS: 71045; 80048; 84484; 85025; 93005; 96361; 96374; 99284; A4216

== ENCOUNTER 2018-05-02 16:10 | Emergency (ER) | payer MEDICAID, SELFPAY ==
[2018-05-02 16:10] VITALS: BMI 23.8
[2018-05-02 16:11] VITALS: BP 125/71; PULSE 92; RESP 14; TEMP 36.7; O2SAT 98; BMI 23.5
[2018-05-02 16:38] VITALS: RESP 18; O2SAT 94
--- NOTE | 2018-05-02 17:15 | ED.DCSUM_ITS ---
- ER Visit Summary Date of Service: 05/02/18 Chief Complaint: Dizziness, aura History of Present Illness: The patient is a 32 F intermittent vertigo symptoms past week, feels like she is spinning. None currently. Today had some oral in the left eye is resolved. No nausea or vomiting. States increased thirst. Mild headache right side today is resolved. No head injuries. Dysuria today. Currently on menstrual period. No fevers. Dealing with sinus congestion for the past week. Did see ENT in [place] for potato allergies, did not discuss any dizziness. Did not discussed congestion. Physical Examination: General: Alert and oriented ?3, no acute distress HEENT: Normocephalic, atraumatic. Moist mucosa membranes. Tender palpation frontal and maxillary sinus right no swollen turbinates. TMs normal bilaterally. Neck: supple, nontender. No meningismus. Cardiovascular: Regular rate and rhythm, no murmurs Respiratory: Normal breath sounds, symmetric, no distress Abdomen: Soft, nontender, nondistended Extremities: Nontender, no edema, pulses intact ?4 Neuro: no focal neurological deficits. Test Results: Hemoglobin 12.4, creatinine 2.74 glucose 83. Urine notes blood, hCG negative. Emergency Department Course and Treatment: Patient no focal neurologic deficits. Transient aura sensations, reports of vertigo symptoms that resolved. She is concerned for dehydration, she requests IV with fluids. 1 L given labs checked stable urine with blood however she is on her menstrual period. No abdominal or flank pain for concerns for kidney stones. Patient did not want any medications. She is feeling better on reevaluation. She will follow-up with her eye doctor for evaluation of the aura symptoms from left eye. Treatment Plan: [] Disposition: Discharge Impression: 1. Transient vertigo stable 2. Transient aura left eye This note was generated with [employer] dictation software. It may contain incorrect words, spelling, and punctuation that were not noted in review of the chart prior to signing ED Disposition - Plan for ED Patient: Disposition: Home or Assisted Living Diagnosis: Vertigo, Aura Instructions: ED Vertigo Unspecified Referrals: Mayra Maurer MD [Primary Care Provider] - 3-5 Days if not improving Additional Instructions: Follow-up with your eye doctor for evaluation of the aura symptoms on left eye.
[2018-05-02 17:32] LABS: Bacteria 0 SEEN /hpf (None Seen); Mucous, Urine 0 SEEN /hpf (<or=2+)
[2018-05-02 17:36] LABS: Color, Urine Straw (Yellow); Glucose, Dipstick Normal (Normal); Ketone-Dipstick Negative (Negative); Leukocyte Esterase-Dipstick Negative /ul (Negative); Nitrite-Dipstick Negative (Negative); Occult Blood-Urine 250 /ul (Negative); Protein-Dipstick Negative (Negative); Specific Gravity, Urine 1.015 (1.002-1.030); Urine Bilirubin Dipstick Negative (Negative); Urine Clarity Cloudy (Clear); Urine Urobilinogen Normal (Normal)
[2018-05-02 17:39] LABS: Internal QC Validated? YES +Cl - CLEAR BKGD; Pregnancy, Urine Negative Negative
[2018-05-02 17:40] LABS: Absolute Lymphocyte Count 1.96 X10^3/ul (0.83-4.51); Absolute Neutrophil Count 3.8 X10^3/uL (2.0-7.7); Basophil# 0.03 X10^3/uL; Basophil% 0.5 % (0-1); Eosinophil# 0.22 X10^3/uL; Eosinophils% 3.5 % (0-5); Hematocrit 38.9 % (37-47); Hemoglobin 12.4 g/dl (12.0-15.0); Lymphocyte # 1.96 X10^3/ul (4.0); Lymphocyte % 31.2 % (19-41); Mean Corp Hgb Conc 31.9 g/gl (32-36); Mean Corpuscular Volume 81.6 fL (81-99); Mean Platelet Vol. 11.4 fl (6.2-12.0); Monocyte# 0.25 X10^3/uL; Neutrophil # 3.82 X10^3/uL (2.7-7.7); Neutrophil % 60.6 % (47-70); Platelet Count 242 K/mm3 (150-450); RBC Distribution Width CV 13.6 % (11.6-14.6); RBC Distribution Width SD 40.6 fl (35.1-43.9); Red Blood Count 4.77 M/mm3 (4.2-5.4); White Blood Count 6.3 K/mm3 (4.4-11.0)
[2018-05-02 17:41] LABS: POSITIVE COUNT NO; POSITIVE DIFFERENTIAL NO; POSITIVE MORPHOLOGY NO
[2018-05-02] MEDS: 0.9% Normal Saline 1,000 ML 1000 ML IV (17:47)
[2018-05-02 17:51] LABS: Squamous Epithelial Cells - UA 0-5 SEEN /hpf (5-10)
[2018-05-02 17:52] LABS: Red Blood Cells-Urine 50-100 SEEN /hpf (0-5)
[2018-05-02 17:52] LABS: Anion Gap 6 (5-15); BUN 8 mg/dL (7-18); BUN/Creat Ratio 10.8 RATIO (10-20); Calcium,Total 8.5 mg/dL (8.5-10.1); Chloride 107 mmol/L (98-107); Creatinine, Serum 0.74 mg/dL (0.55-1.02); EST Glomerular Filtration Rate 96 mL/min (>60); Est Glom Filt Rate - Afr Amer 117 mL/min (>60); Estimated Creatinine Clearance 95.12 ml/min; Glucose 83 mg/dL (74-106); Sodium Level 139 mmol/L (136-145)
[2018-05-02 17:53] LABS: White Blood Cells 0-5 SEEN /hpf (0-5)
[2018-05-02 19:09] VITALS: RESP 14
== END 2018-05-02 19:09 | disposition home or self-care (01) ==
PROVIDERS: Emergency Provider Emergency Medicine; Family Provider Internal Medicine; PCP Internal Medicine
DX: R42 Dizziness and giddiness (principal); R63.1 Polydipsia; R30.0 Dysuria; Z72.0 Tobacco use; Z79.899 Other long term (current) drug therapy
CPT/HCPCS: 80048; 81001; 81025; 85025; 96360; 99283; J7030; A4216

== ENCOUNTER → 2018-08-06 11:11 | Outpatient (CLI) | payer MEDICAID, SELFPAY ==
--- NOTE | 2018-08-06 11:52 | US_ITS ---
STUDY: ULTRASOUND TRANSVAGINAL CLINICAL: Female, 33 years old. Pelvic pain. TECHNIQUE: Transabdominal and Transvaginal COMPARISON: None. FINDINGS: Normal uterine size measuring 7.5 x 4.7 x 4.1 cm in maximal craniocaudal dimension. Probable tiny 4 mm calcification. There are no myometrial masses. There is mild heterogeneity of the myometrium of uncertain significance. Normal endometrial thickness measuring 6.7 mm. Endometrial echoes are hyperechoic. There are no endometrial masses, and there is no fluid in the endometrial cavity. Nabothian cyst of the uterine cervix. Normal right ovary, measuring 3.5 x 1.9 x 1.9 cm. There are multiple follicles without a dominant cyst. None are larger than 1 cm. Normal left ovary, measuring 3.1 x 1.8 x 1.7 cm. There are multiple follicles without a dominant cyst. None are larger than 1 cm. There is no free fluid in the pelvis. Normal bladder contour. Polycystic ovary disease: There is no specific finding to support polycystic ovarian disease.. US/Transvaginal Non- IMPRESSION: No specific abnormality seen. Possible mild heterogeneity of the uterine myometrium of uncertain significance. No definite polycystic ovarian disease. Electronically Signed: Partha Talbert MD at 15:56 EDT , Service support ,
--- NOTE | 2018-08-06 11:52 | US_ITS ---
STUDY: ULTRASOUND TRANSVAGINAL CLINICAL: Female, 33 years old. Pelvic pain. TECHNIQUE: Transabdominal and Transvaginal COMPARISON: None. FINDINGS: Normal uterine size measuring 7.5 x 4.7 x 4.1 cm in maximal craniocaudal dimension. Probable tiny 4 mm calcification. There are no myometrial masses. There is mild heterogeneity of the myometrium of uncertain significance. Normal endometrial thickness measuring 6.7 mm. Endometrial echoes are hyperechoic. There are no endometrial masses, and there is no fluid in the endometrial cavity. Nabothian cyst of the uterine cervix. Normal right ovary, measuring 3.5 x 1.9 x 1.9 cm. There are multiple follicles without a dominant cyst. None are larger than 1 cm. Normal left ovary, measuring 3.1 x 1.8 x 1.7 cm. There are multiple follicles without a dominant cyst. None are larger than 1 cm. There is no free fluid in the pelvis. Normal bladder contour. Polycystic ovary disease: There is no specific finding to support polycystic ovarian disease.. US/Pelvic (Non ) IMPRESSION: No specific abnormality seen. Possible mild heterogeneity of the uterine myometrium of uncertain significance. No definite polycystic ovarian disease. Electronically Signed: Partha Talbert MD at 15:56 EDT , Service support ,
== END ==
PROVIDERS: Family Provider Internal Medicine; PCP Internal Medicine
DX: R10.2 Pelvic and perineal pain (principal)
CPT/HCPCS: 76830; 76856

== ENCOUNTER 2019-01-10 18:14 | Emergency (ER) | payer MEDICAID, SELFPAY ==
[2019-01-10 18:14] VITALS: BP 140/83; PULSE 91; RESP 16; TEMP 36.9; O2SAT 99; BMI 23.6
--- NOTE | 2019-01-10 20:27 | ED.VIS.GEN ---
History of Present Illness Chief Complaint: Dizziness Informant: Patient Onset: Today Context: Sudden Onset - w/ turning head Timing: Intermittent Quality: spinning. off-balance, like she is going to fall Location: head Current Severity: Mild Maximum Severity: Moderate Worsened by: turning head, changing position Relieved by: remaining still Associated Symptoms: dry mouth. denies headache, lightheadedness, n/v, periph neuro sx, MS chg Narrative: Patient states she has had a sore, white tongue or weeks and has been put on nystatin swish and swallow for it, she does not feel it is helping. She does not have any immunocompromising conditions. She has a history of a traumatic brain injury. She presents concerned that she is dehydrated because she has been dizzy today. She discusses her dizziness as vertigo, feeling like she is going to fall, feeling like there is spinning, every time she moves her head. It is better when she remains still. She has no near syncope. It makes her feel like she needs to hold onto something. She has been drinking bottled water all day. She is essentially demanding IV fluids because she feels dehydrated. She has had normal urination. 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 - Past Medical History (1) TBI (traumatic brain injury) Status: Chronic Past Medical History - Allergies and Home Meds Allergies/Adverse Reactions: Allergies doxycycline Allergy (Verified 01/10/19 18:16) Hives Penicillins Allergy (Verified 01/10/19 18:16) Unknown Primary Care Physician: Mayra Maurer MD [Primary Care Provider] - 3-5 Days if not improving Smoking Status: Never smoker Drugs: None Review of Systems General: Denies: Chills, Fever, Sweats Eyes: Denies: Visual changes - bilaterally, Diplopia ENT: Denies: Bilateral ear pain, Rhinorrhea, Sore throat Cardiovascular: Denies: Chest pain, Palpitations Respiratory: Denies: Dyspnea, Cough Gastrointestinal: Denies: Abdominal pain, Nausea, Vomiting Genitourinary: Denies: Dysuria, Hematuria, Frequency Musculoskeletal: Denies: Back pain, Extremity Pain Skin: Denies: Rash, Wounds Neurological: Reports: - - vertigo. see HPI.. Denies: Headache, Weakness, Numbness Physical Exam Vital Signs/Narrative: Vital Signs Temp Pulse Resp BP Pulse Ox 01/10/19 18:14 98.5 F 91 16 140/83 H 99 General: Well nourished, Well developed, No Acute Distress Head: Normocephalic, Atraumatic Eyes: Perrl, EOMI, - - horiz nystagmus. no vertical or rotatory nystagmus. ENT: Moist mucous membranes, No rhinorrhea, TM's clear, - - Posterior oropharynx clear and normal. No trismus. No asymmetry. No exudates. Fairly unremarkable appearing nontender tongue.. Negative for: Nasal congestion, Sinus tenderness Neck: Supple, Nontender, No lymphadenopathy Skin: Normal color, No rash, No Trauma Neurological: Alert, Oriented x3, Cranial nerves II-XII grossly intact, Normal Strength, Normal Sensation, - - nml FTN and HTS Psychological: Normal affect, Normal Mood Diagnostic/Tx/Re-eval - Medical Decision Making Patient vital signs are normal. I do not see any thrush in her mouth. It looks fairly unremarkable at this time. I advised her and reassured her that she is indeed not dehydrated. She does not need any IV fluids which she is almost demanding. I advised her that she will be given instructions on peripheral vertigo and a prescription for meclizine to use if she wants, and she was given a pill prior to discharge. Advised to follow-up with regards to her mouth and throat. ED Disposition - Plan for ED Patient: Disposition: Home or Assisted Living Diagnosis: Peripheral vertigo Instructions: Benign Positional Vertigo Prescriptions: Meclizine HCl [Antivert] 25 mg PO 4X/DAY PRN PRN #16 tab PRN Reason: Dizziness Prescription Printed Referrals: Mayra Maurer MD [Primary Care Provider] - 3-5 Days if not improving
[2019-01-10 20:54] VITALS: BP 126/9; BP 126/97; PULSE 85; RESP 17
== END 2019-01-10 21:00 | disposition home or self-care (01) ==
PROVIDERS: Emergency Provider Emergency Medicine; Family Provider Internal Medicine; PCP Internal Medicine
DX: H81.399 Other peripheral vertigo, unspecified ear (principal); Z79.899 Other long term (current) drug therapy; Z88.0 Allergy status to penicillin; Z87.820 Personal history of traumatic brain injury
CPT/HCPCS: 99282

== ENCOUNTER 2019-03-31 15:02 | Emergency (ER) | payer MEDICAID, SELFPAY ==
[2019-03-31 15:04] VITALS: BP 131/82; PULSE 84; RESP 15; TEMP 36.7; O2SAT 100; BMI 23.3
--- NOTE | 2019-03-31 15:31 | CT_ITS ---
STUDY: CT ABDOMEN AND PELVIS WITHOUT CONTRAST REASON FOR EXAM: Female, 33 years old. LOW/MID ABDOMINAL PAIN. POLYCYSTIC OVARIAN DISEASE RADIATION DOSAGE (If Supplied By Facility): CTDIvol = ( 6.78 ) mGy, DLP = ( 327.00 ) mGycm TECHNIQUE: Transaxial images were obtained from the dome of the diaphragm to the symphysis pubis without oral contrast, and without intravenous contrast. Sagittal and coronal images were reconstructed. Individualized dose optimization techniques were used for this CT. COMPARISON: None. FINDINGS: The visualized lung bases are unremarkable. The visualized portions of the heart are within normal limits. Normal liver. There is partial non-visualization of the gallbladder, which may be secondary to either contraction or a prior cholecystectomy. Normal spleen. Normal pancreas. Normal bilateral adrenal glands. Normal right kidney. Normal left kidney. Normal visualized stomach. Normal small intestine. Normal colon. The appendix is visualized and appears normal. Unenhanced major vessels and retroperitoneum are grossly unremarkable. Normal urinary bladder. Normal visualized uterus. Partially cystic left adnexa may be better assessed with a dedicated pelvic sonogram as clinically indicated. Normal abdominal wall. Normal osseous structures. CT/Abdomen/Pelvis without Cont IMPRESSION: No acute intra-abdominal process is identified. Partially cystic left adnexa may be better assessed with a dedicated pelvic sonogram as clinically indicated. Electronically Signed: Conrad Fernández, at 16:57 EST Tel , Service support ,
[2019-03-31 15:34] VITALS: BP 124/70; PULSE 80; RESP 14; O2SAT 98
--- NOTE | 2019-03-31 15:38 | ED.DCSUM_ITS ---
- ER Visit Summary Date of Service: 03/31/19 Chief Complaint: [Abdominal pain] History of Present Illness: The patient is a 33 F presents the emergency department with complaint of abdominal pain is started yesterday. Patient states pain is continuous and rates it currently as an 8 out of 10. Pain is more in the suprapubic region and feels that sometimes in the left flank. She denies urinary symptoms of pain or burning. She denies frequency. She denies hematuria. She is had no fever. She is had no vomiting or diarrhea. Patient states that in the past she was told she had PCOS but then was seen again and was told she did not have it. Patient unsure of her last menstrual period states that she has a hard time remembering things be from prior traumatic brain injury and has a hard time with short-term memory. Patient does have history of eosinophilic esophagitis. [] Physical Examination: HEENT-PERRLA, EOMI. Cranial nerves II through XII grossly intact. TMs clear. Mucous membranes moist. No adenopathy. Cardiovascular-regular rate and rhythm without murmur or ectopy Lungs-clear to auscultation, chest wall stable without crepitus or subcu emphysema Abdomen-normoactive bowel sounds, soft. Patient has tenderness over the suprapubic region. There is no rebound, rigidity, or peritoneal signs. Extremities-intact ?4, normal range of motion, normal pulses, atraumatic] Test Results: [CBC with differential obtained was normal. Chemistries were normal. Urinalysis was normal. hCG was negative. CT scan of the abdomen pelvis without contrast showed no acute intra-abdominal process. Patient was noted to have a partially cystic left adnexa which may be better assessed with dedicated pelvic sonogram.] Emergency Department Course and Treatment: [While in department patient had an IV line established. She did not want anything for pain. I discussed results with patient and discussed possibly obtaining an ultrasound to evaluate further as I suspect she may have an ovarian cyst that may be responsible for her pain. Patient states that she has 2 daughters that she needs to burr picker and she does not want to have that testing done today but she will follow-up with her PILE DRIVER OPERATOR HELPER.] Treatment Plan: [Patient will follow-up with her PILE DRIVER OPERATOR HELPER. Patient advised to use ibuprofen or Tylenol for discomfort. Patient advised to return if worsening pain, fever, vomiting, or conditions worsen anyway.] Disposition: [Discharged home in stable condition] Impression: [Abdominal pain Ovarian cyst] This note was generated with [employer] dictation software. It may contain incorrect words, spelling, and punctuation that were not noted in review of the chart prior to signing ED Disposition - Plan for ED Patient: Referrals: Mayra Maurer MD [Primary Care Provider] -
[2019-03-31 16:12] LABS: Mucous, Urine 0 SEEN /hpf (<or=2+); Red Blood Cells-Urine 0 SEEN /hpf (0-5); White Blood Cells 0 SEEN /hpf (0-5)
[2019-03-31 16:13] LABS: Absolute Lymphocyte Count 2.31 X10^3/uL (0.83-4.51); Absolute Neutrophil Count 7.5 X10^3/uL (2.0-7.7); Basophil# 0.04 X10^3/uL; Basophil% 0.4 % (0-1); Eosinophils% 1.9 % (0-5); Hemoglobin 12.2 g/dL (12.0-15.0); Lymphocyte # 2.31 X10^3/ul (4.0); Lymphocyte % 21.4 % (19-41); Mean Corp Hgb Conc 31.3 g/dL (32-36); Mean Corpuscular Hgb 25.4 pg (27.0-32.0); Mean Corpuscular Volume 81.3 fL (81-99); Mean Platelet Vol. 11.2 fl (6.2-12.0); Monocyte# 0.68 X10^3/uL; Monocyte% 6.3 % (0-10); NRBC Flagged by Analyzer 0 % (0-5); Neutrophil # 7.53 X10^3/uL (2.7-7.7); Neutrophil % 69.7 % (47-70); Platelet Count 283 K/mm3 (150-450); RBC Distribution Width CV 13.5 % (11.6-14.6); RBC Distribution Width SD 39.9 fl (35.1-43.9); White Blood Count 10.8 K/mm3 (4.4-11.0)
[2019-03-31 16:15] LABS: Color, Urine Yellow (Yellow); Glucose, Dipstick Normal (Normal); Ketone-Dipstick Negative (Negative); Leukocyte Esterase-Dipstick Negative /ul (Negative); Nitrite-Dipstick Negative (Negative); Occult Blood-Urine Negative /ul (Negative); Protein-Dipstick Negative (Negative); Specific Gravity, Urine 1.015 (1.002-1.030); Urine Bilirubin Dipstick Negative (Negative); Urine Clarity Clear (Clear); Urine Urobilinogen Normal (Normal)
[2019-03-31 16:23] LABS: Internal QC Validated? YES +Cl - CLEAR BKGD; Pregnancy, Serum, hCG Quali. NEGATIVE Negative
[2019-03-31 16:25] LABS: Anion Gap 4 (5-15); BUN 9 mg/dL (7-18); BUN/Creat Ratio 7.9 RATIO (10-20); Calcium,Total 8.9 mg/dL (8.5-10.1); Chloride 108 mmol/L (98-107); Creatinine, Serum 1.14 mg/dL (0.55-1.02); EST Glomerular Filtration Rate 58 mL/min (>60); Est Glom Filt Rate - Afr Amer 71 mL/min (>60); Estimated Creatinine Clearance 63.75 ml/min; Glucose 88 mg/dL (74-106); Potassium 3.8 mmol/L (3.5-5.1); Sodium Level 139 mmol/L (136-145)
[2019-03-31 16:28] LABS: Bacteria RARE /hpf (None Seen); Squamous Epithelial Cells - UA 0-5 SEEN /hpf (5-10)
--- NOTE | 2019-03-31 17:06 | ED.DEP ---
ED Disposition - Plan for ED Patient: Instructions: ABDOMINAL PAIN, Unknown Cause, (Female), Ovarian Cyst Referrals: Mayra Maurer MD [Primary Care Provider] - 3-5 Days Additional Instructions: see your ENGAGEMENT EXECUTIVE in 3-5 days
[2019-03-31 17:07] VITALS: BP 120/74; PULSE 75; PULSE 82; RESP 14; O2SAT 98
== END 2019-03-31 17:13 | disposition home or self-care (01) ==
LOC: ED 15:39
PROVIDERS: Emergency Provider Emergency Medicine; PCP Internal Medicine
DX: N83.209 Unspecified ovarian cyst, unspecified side (principal); K20.0 Eosinophilic esophagitis; Z87.820 Personal history of traumatic brain injury
CPT/HCPCS: 74176; 80048; 81001; 84703; 85025; 99283; A4216

== ENCOUNTER 2020-07-22 23:00 | Emergency (ER) | payer MEDICAID, SELFPAY ==
[2020-07-22 23:01] VITALS: BP 125/87; PULSE 88; RESP 15; TEMP 35.8; O2SAT 98; BMI 26.9
--- NOTE | 2020-07-22 23:12 | RAD_ITS ---
EXAM: XR LEFT FOOT COMPLETE, 3 OR MORE VIEWS : 1985 CLINICAL INDICATION: injury TECHNIQUE: Frontal, lateral and oblique views of the left foot. This report was created using [employer] report generation technology. COMPARISON: None. FINDINGS: BONES/JOINTS: Unremarkable. No acute fracture. No subluxation. Normal alignment. Preservation of the joint space. No sclerotic or destructive changes observed. SOFT TISSUES: Unremarkable. No soft tissue swelling or gas. No radiopaque foreign body. RAD/Foot min 3 Views IMPRESSION: Negative left foot x-rays. at 2329 Reported and signed by: Rico Hall MD Electronically Signed: Rico Hall MD at 23:28 EDT Tel , Service support ,
--- NOTE | 2020-07-22 23:13 | EDS_ITS ---
HPI History of Present Illness Chief Complaint: Lower Extremity Injury Informant: patient Narrative Narrative: 35-year-old female states tonight she tripped sustaining an injury to her left great toe. She denies any other injuries. [facility] Medical History (Updated 07/22/20 @ 23:[address] Ang Schofield DO) TBI (traumatic brain injury) Home Medications fluticasone propionate [Flonase Allergy Relief] 9.9 ml NS DAILY PRN 09/01/17 [History Last Taken Unknown] bupropion HCl 150 mg PO DAILY 01/10/19 [History Last Taken 01/10/19] meclizine 25 mg PO 4X/DAY PRN PRN #16 tab 01/10/19 [Rx Last Taken Unknown] nystatin 5 ml PO Q6H 01/10/19 [History Last Taken 01/10/19] Allergy/AdvReac Type Severity Reaction Status Date / Time doxycycline Allergy Hives Verified 07/22/20 23:04 Penicillins Allergy Unknown Verified 07/22/20 23:04 Surgical History (Updated 07/22/20 @ 23:[address] Ang Schofield DO) History of bunionectomy Social History (Updated 07/22/20 @ 23:[address] Ang Schofield DO) Smoking Status: Never smoker substance use type: does not use ROS ROS ED Constitutional Constitutional ED: Denies chills or weight loss Eyes Eyes: Denies change in vision or diplopia ENT ENT ED: Denies ear pain, rhinorrhea or sore throat Cardiovascular Cardiovascular: Denies chest pain, orthopnea, palpitations or racing heartbeat Respiratory/Chest Respiratory/Chest: Denies cough, dyspnea or orthopnea Gastrointestinal Gastrointestinal: Denies abdominal pain, diarrhea, nausea or vomiting Genitourinary Genitourinary ED: Denies dysuria, hematuria or urinary frequency Musculoskeletal Musculoskeletal: Reports other Details: See history of present illness ; Denies arthralgias or myalgias Integumentary Denies abscess or rash Neurologic Neurologic: Denies headache(s) or weakness Psychiatric Psychiatric: Denies anxiety, depression, suicidal ideation or suicidal thoughts Endocrine Endocrinology: Denies polydipsia, polyphagia or polyuria Allergic/Immunologic Allergic/Immunologic ED: Denies mouth swelling, tongue swelling or urticaria EXAM Physical Exam Const Vital Signs: 05/29/21 23:01 Temperature 96.5 F L Temperature Source Temporal Pulse Rate 88 Respiratory Rate 15 Blood Pressure 125/87 H Blood Pressure Mean 99 Pulse Ox 98 Oxygen Delivery Method Room Air Positive well nourished and well developed General Appearance ED: well developed HEENT Reports normocephalic, head/scalp atraumatic and moist mucous membranes Eyes PERRL and EOMs intact bilaterally Neck no lymphadenopathy, supple and no JVD Resp normal respiratory effort and clear to auscultation bilaterally Cardio regular rate, regular rhythm and no murmurs GI normal to inspection, nondistended, normoactive bowel sounds and non-tender Palpation: soft Back/Spine no CVA tenderness and normal ROM Extremity Extremity Narrative: Patient has tenderness at the left MTP joint. Mild swelling. There is no nail trauma General Extremety ED: Yes tenderness; Negative for edema General Extremity: Negative for edema Neuro oriented x3 and CN's II-XII intact bilaterally Sensorium / Orientation: alert Motor Exam: strength 5/5 throughout Psych mental status grossly normal Mood & Affect: Negative for depressed or tearful Skin no rashes or lesions noted and no wounds MDM MDM MDM Narrative Medical decision making narrative: My interpretation of the plain films of the left foot is no acute fracture. Patient will be discharged home with instructions for ice and anti-inflammatories. Follow-up with primary care 10 to 14 days if not improved Discharge Plan Triage Chief Complaint: Lower Extremity Injury ED Provider: Ang Schofield Dx/Rx/DC Orders Clinical Impression: Sprain of left foot Instructions: ED Foot Sprain Prescriptions: No Action fluticasone propionate [Flonase Allergy Relief] 9.9 ML Nemo.Susp 9.9 ml NS DAILY PRN (Reason: Nasal Congestion) RF: 0 nystatin 100,000.000 suspension 5 ml PO Q6H RF: 0 bupropion HCl 150 MG tablet extended release 24 hr 150 mg PO DAILY RF: 0 meclizine 25 MG tablet 25 mg PO 4X/DAY PRN PRN (Reason: Dizziness) Qty: 16 RF: 0 Primary Care Provider: Mayra Maurer Referrals: Mayra Maurer MD [Primary Care Provider] - 10-14 Days if not better Disposition Disposition: Home, self care
[2020-07-22 23:55] VITALS: RESP 12
== END 2020-07-22 23:55 | disposition home or self-care (01) ==
LOC: ED 23:40
PROVIDERS: Emergency Provider Emergency Medicine; PCP Internal Medicine
DX: S93.602A Unspecified sprain of left foot, initial encounter (principal); W18.40XA Slipping, tripping and stumbling without falling, unspecified, initial encounter; Z79.899 Other long term (current) drug therapy
CPT/HCPCS: 73630; 99282

== ENCOUNTER 2020-10-15 17:24 | Emergency (ER) | payer MEDICAID, SELFPAY ==
[2020-10-15 17:24] VITALS: BP 119/90; PULSE 106; RESP 16; TEMP 37.3; BMI 28.2
--- NOTE | 2020-10-15 17:43 | ED.VIS.LOWEX ---
HPI History of Present Illness Chief Complaint: Lower Extremity Injury Detail of Chief Complaint: Right leg injury Informant: patient Narrative Narrative: Patient presents to the emergency department with complaint of injury to the right thigh that occurred several hours ago. Patient states that her daughter was with her at a water park where she went down the slide. As the daughter was coming down a water slide she struck the patient on the right thigh with her foot. Patient was able to continue playing in the water for some time but started having increased discomfort to the thigh. She thinks it may just be a muscle bruise. Patient has been ambulatory. She denies any other complaints. [facility] Medical History (Updated 10/15/20 @ 17:[address] Kati Babcock, DO) Acute anxiety Foot fracture, left Foot fracture, right Panic attack TBI (traumatic brain injury) Home Medications fluticasone propionate [Flonase Allergy Relief] 9.9 ml NS DAILY PRN 09/01/17 [History Last Taken Unknown] bupropion HCl 300 mg PO DAILY 01/10/19 [History Last Taken 01/10/19] meclizine 25 mg PO 4X/DAY PRN PRN #16 tab 01/10/19 [Rx Last Taken Unknown] norgestimate-ethinyl estradiol [Issaquena-Linyah] 1 tab PO DAILY 07/22/20 [History Last Taken Unknown] Allergy/AdvReac Type Severity Reaction Status Date / Time doxycycline Allergy Hives Verified 10/15/20 17:24 Penicillins Allergy Unknown Verified 10/15/20 17:24 Surgical History (Updated 07/22/20 @ 23:33 by Amber Easton) History of bunionectomy Hx of breast reduction, elective Social History (Updated 07/22/20 @ 23:[address] Ang Schofield, ) Smoking Status: Never smoker substance use type: does not use ROS ROS ED Constitutional Constitutional ED: Reports systems reviewed and no addt'l complaints, except as documented; Denies body ache(s), change in weight or chills Eyes Eyes: Denies acute decrease in peripheral vision, change in vision, double vision or loss of vision ENT ENT ED: Reports none; Denies ear pain, lip swelling, loss taste/smell, neck pain, otalgia or sore throat Cardiovascular Cardiovascular: Reports none; Denies abdominal pain, chest pain with activity, leg edema, lightheadedness, palpitations, rapid heart rate or syncope Respiratory/Chest Respiratory/Chest: Reports none; Denies change in mental status, dry cough, dyspnea, hemoptysis, shortness of breath at rest or shortness of breath with exertion Gastrointestinal Gastrointestinal: Reports none; Denies abdominal pain, change in stool character, diarrhea, hematemesis, hematochezia, melena, rectal bleeding or vomiting Genitourinary Genitourinary ED: Reports none; Denies abdominal discomfort, anuria, dysuria, genital pain or polyuria Musculoskeletal Musculoskeletal: Reports none and other Details: Right leg injury ; Denies arthralgias, back pain, difficulty walking, extremity pain, muscle weakness or myalgias Integumentary Reports none; Denies abscess or rash Neurologic Neurologic: Reports none; Denies abnormal gait, confusion, focal weakness, frequent falls, headache(s), loss of vision, numbness, paresthesias, radicular pain, vertigo or weakness Psychiatric Psychiatric: Reports systems reviewed and no addt'l complaints, except as documented and none; Denies behavioral changes, confusion, difficulty concentrating, hallucinations, suicidal ideation, tactile hallucinations or visual hallucinations Endocrine Endocrinology: Denies none, cold intolerance, excessive sweating, fatigue or heat intolerance Hematologic/Lymphatic Hematologic/Lymphatic: Reports none; Denies anemia, easy bleeding or easy bruising Allergic/Immunologic Allergic/Immunologic ED: Denies as per HPI, none, lip swelling, mouth swelling, throat swelling, tongue swelling or hives EXAM Physical Exam Const Vital Signs: 10/15/20 17:24 Temperature 99.1 F Temperature Source Temporal Pulse Rate 106 H Respiratory Rate 16 Blood Pressure 119/90 H Blood Pressure Mean 99 Positive well nourished and well developed General Appearance ED: well developed and NAD HEENT Reports TM's clear and moist mucous membranes normocephalic and atraumatic; Negative for trauma or tenderness Tympanic Membrane ED: Yes TM's clear Eyes PERRL and EOMs intact bilaterally General Eye ED: Negative for pale conjunctiva or scleral icterus Neck no lymphadenopathy, supple and no JVD General: Negative for tenderness Chest Wall inspection of chest normal and palpation of chest normal Chest: Negative for tenderness Resp normal respiratory effort and clear to auscultation bilaterally Effort and Inspection: Negative for respiratory distress or pain with movement Auscultation: Negative for rhonchi, wheezes or diminished lung sounds Cardio regular rate, regular rhythm, S1 normal heart sound, S2 normal heart sound and no murmurs Peripheral Pulses: pulses 2+ throughout GI normal to inspection, nondistended, normoactive bowel sounds, soft to palpation, non-tender, non-distended and no masses Back/Spine no CVA tenderness and no thoracic nor lumbar tenderness Extremity Extremity Narrative: Evaluation of the right thigh reveals no ecchymosis or bruising. There is no deformity. No hematomas palpated. She has no real pain about the knee and she is ligamentously stable at the knee. She does have some tenderness palpation over the mid anterior thigh. General Extremety ED: Negative for edema General Extremity: Negative for edema Neuro oriented x3, CN's II-XII intact bilaterally, no sensory deficits noted and gait normal Sensorium / Orientation: awake, alert, oriented to person, oriented to place and oriented to time Motor Exam: strength 5/5 throughout and strength abnormal Psych mental status grossly normal Skin no rashes or lesions noted and no wounds MDM MDM MDM Narrative Medical decision making narrative: I discussed with patient that I did not feel x-rays were indicated. She is in agreement. Patient advised to ice the area and use ibuprofen or Tylenol for discomfort. 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 I will write her off work for tomorrow if she feels like she cannot work in the morning otherwise she will try to go to work. Discharge Plan Triage Chief Complaint: Lower Extremity Injury ED Provider: Kati Babcock Dx/Rx/DC Orders Clinical Impression: Contusion of right anterior thigh Instructions: ED Soft Tissue Contusion Prescriptions: No Action fluticasone propionate [Flonase Allergy Relief] 9.9 ML spray,suspension 9.9 ml NS DAILY PRN (Reason: Nasal Congestion) RF: 0 bupropion HCl 150 MG tablet extended release 24 hr 300 mg PO DAILY RF: 0 meclizine 25 MG tablet 25 mg PO 4X/DAY PRN PRN (Reason: Dizziness) Qty: 16 RF: 0 norgestimate-ethinyl estradiol [Issaquena-Linyah] 0.25-35 mg-mcg tablet 1 tab PO DAILY RF: 0 Primary Care Provider: Mayra Maurer Referrals: Mayra Maurer MD [Primary Care Provider] - 3-5 Days Disposition Disposition: Home, Self Care
== END 2020-10-15 17:56 | disposition home or self-care (01) ==
LOC: ED 17:51
PROVIDERS: Emergency Provider Emergency Medicine; PCP Internal Medicine
DX: S70.11XA Contusion of right thigh, initial encounter (principal); W50.0XXA Accidental hit or strike by another person, initial encounter; Y93.19 Activity, other involving water and watercraft; Y92.831 Amusement park as the place of occurrence of the external cause; Y99.9 Unspecified external cause status; F41.0 Panic disorder [episodic paroxysmal anxiety]; Z79.899 Other long term (current) drug therapy
CPT/HCPCS: 99282

== ENCOUNTER → 2021-01-26 13:01 | Outpatient (CLI) | payer MEDICAID, SELFPAY ==
[2021-01-26 13:36] LABS: Erythrocyte Sedimentation Rate 7 mm/hr (0-30)
[2021-01-26 13:59] LABS: CPK Total, Creatine Kinase 127 U/L (26-192); CRP < 2.90 mg/L (0.0-3.0); LDH 161 U/L (84-246)
[2021-01-31 12:08] LABS: Angiotensin Convert Enzyme 19 U/L (14-82); Cytoplasmic Ab (C-ANCA) <1:20 titer (Neg:<1:20); Endomysial Antibody IgA Negative (Negative); Immunoglobulin A 171 mg/dL (87-352); Immunoglobulin E 30 IU/mL (6-495); Immunoglobulin G 1037 mg/dL (586-1602)
[2021-01-31 15:19] LABS: Immunoglobulin M 96 mg/dL (26-217); Perinuclear Ab (P-ANCA) <1:20 titer (Neg:<1:20); t-Transglutaminase IgA <2 U/mL (0-3)
[2021-02-03 09:08] LABS: Beef <0.10 kU/L (Class 0); Corn <0.10 kU/L (Class 0); Egg, Whole <0.10 kU/L (Class 0); Milk (Cow) 0.11 kU/L (Class 0/I); Peanut <0.10 kU/L (Class 0); Pork <0.10 kU/L (Class 0); Soybean <0.10 kU/L (Class 0); Wheat <0.10 kU/L (Class 0)
[2021-02-03 12:35] LABS: Chocolate <0.10 kU/L (Class 0)
== END ==
PROVIDERS: PCP Internal Medicine; Referring Provider Internal Medicine Gastroenterology; Visit Provider Internal Medicine Gastroenterology
DX: K20.0 Eosinophilic esophagitis (principal)
CPT/HCPCS: 36415; 82164; 82550; 82784; 82785; 83516; 83615; 85652; 86003; 86005; 86140; 86255; 86256

== ENCOUNTER 2021-06-13 05:39 | Day surgery (SDC) | payer MEDICAID, SELFPAY ==
[2021-06-13] VITALS (7 sets, daily range): BP systolic 89–122; BP diastolic 60–95; PULSE 75–100; RESP 16–106; TEMP 36.3–36.5; O2SAT 98–100; BMI 25.4
[2021-06-13 06:11] LABS: Internal QC Validated? YES +Cl - CLEAR BKGD; Pregnancy, Urine Negative Negative
[2021-06-13] MEDS: Lactated Ringers 1,000 ML 15 ML IV (06:18)
--- NOTE | 2021-06-13 06:30 | IMM_PTH ---
PATIENT: MATTIE CARVER LOC: EN U#:[id number] AGE/SX: 36/F ROOM: RE06/13/[address]: Dr. Lowell Mitchell DO : 1985 BED: DIS: 06/13/2021 SPEC #: [id number] RECD: 06/14/21 08:50 STATUS: JULIO REHunter #: [id number] LORRAINE: 06/13/21 06:[address]: Lowell Mitchell DEPT: IMMUNOHISTOCHEMISTRY RECD BY: Courtney Camarena ENTERED: 06/14/21 08:50 SP TYPE: IMMUNO OTHR DR: Mayra Maurer MD Tissues: C - Stomach, NOS Procedures: H Pylori (initial) PHYSICIAN & INSTITUTION [place] [address] SPECIMEN INFORMATION: Tissue Source: C ? Gastric antrum Clinical Info: Eosinophilic esophagitis, abdominal pain Specimen Number: [id number] CPT code: 94231 METHODOLOGY: Deparaffinized sections of prefer/formalin-fixed tissue or PAP/DQ stained slides are incubated with monoclonal/polyclonal antibodies/oligonucleotide probes. Localization is made via biotin free immunoperoxidase method. Appropriate controls are performed and reacted as expected. Results on target cell population are indicated in the following table: RESULTS: ANTIBODY / CLONE RESULT Block C H Pylori (polyclonal) negative These tests were developed and their performance characteristics determined by [facility]. They may not have been cleared or approved by the U.S. Food and Drug Administration. The FDA has determined that such clearance or approval is not necessary. INTERPRETATION: C. Gastric antrum, biopsy: Negative for Helicobacter pylori organisms. AM:isabell 06/15/2021
--- NOTE | 2021-06-13 06:30 | EGD_PTH ---
PATIENT: MATTIE CARVER LOC: EN U#:[id number] AGE/SX: 36/F ROOM: RE06/13/[address]: Dr. Lowell Mitchell DO : 1985 BED: DIS: 06/13/2021 SPEC #: [id number] RECD: 06/13/21 13:26 STATUS: JULIO CLAUDIO #: [id number] LORRAINE: 06/13/21 06:[address]: Lowell Mitchell DEPT: SURGICAL PATHOLOGY RECD BY: Emily Montes ENTERED: 06/14/21 08:17 SP TYPE: EGD BIOPSY OT DR: Mayra Maurer MD Tissues: A - Duodenum, NOS B - Pylorus C - Gastric mucous membrane D - Esophagus, NOS Procedures: Special Stain Group II Surgery Specimen Level IV Alcian Blue/PAS (control) HEADER OPERATION[place] [place] PRE-OP DIAGNOSIS: Eosinophilic esophagitis, abdominal pain TISSUE SUBMITTED: A ? Duodenum biopsy, B ? Pylorus biopsy, C ? Gastric antrum for H. pylori and path, D ? Distal esophagus MICROSCOPIC DIAGNOSIS A. Duodenum, biopsy: Fragments of duodenal mucosa with mild nonspecific chronic inflammation. B. Pylorus, biopsy: Consistent with a fragment of duodenal mucosa, no pathologic diagnosis. C. Gastric antrum, biopsy: Mild gastritis. See microscopic description and comment. D. Distal esophagus, biopsy: Fragments of gastroesophageal mucosa with mild chronic inflammation. Intestinal metaplasia (goblet cell metaplasia) not identified. See comment. SJ:isabell 06/15/2021 COMMENT C. The results of immunohistochemistry for Helicobacter pylori will be reported separately ([id number]). D. Alcian blue/PAS stain with matched control is used in the evaluation of the specimen. MICROSCOPIC DESCRIPTION Slides are reviewed. C. The specimen shows fragments of gastric mucosa with chronic inflammatory cell infiltrates in the lamina propria consisting of lymphocytes and plasma cells, consistent with mild chronic gastritis. GROSS DESCRIPTION A - Received in fixative is one container labeled with the patient's name and designated duodenum biopsy. The specimen consists of multiple irregular fragments of light matthews soft tissue that in aggregate measure 1 x 0.5 x 0.1 cm. The specimen is totally submitted in one cassette. B - Received in fixative is one container labeled with the patient's name and designated pylorus biopsy. The specimen consists of one irregular fragment of light matthews soft tissue that measures 0.4 x 0.2 x 0.1 cm. The specimen is totally submitted in one cassette. C - Received in fixative is one container labeled with the patient's name and designated gastric antrum biopsy. The specimen consists of two irregular fragments of light matthews soft tissue that in aggregate measure 1 x 0.5 x 0.1 cm. The specimen is totally submitted in one cassette. D - Received in fixative is one container labeled with the patient's name and designated distal esophagus. The specimen consists of two irregular fragments of light matthews soft tissue that in aggregate measure 0.6 x 0.3 x 0.1 cm. The specimen is totally submitted in one cassette. / SJ:rg 06/14/2021 TC:3 CPT: 76746 x4, 46653
--- NOTE | 2021-06-13 06:32 | HP.PCM_ITS ---
History and Physical Date of Admission: 06/13/21 35 F who presents to the office today for management of eosinophilic esophagitis and abdominal pain. Multiple. She attributes multiple secondary to food allergies and possibly secondary to use of esophagitis. She was tried on pantoprazole therapy but it her joints hurt so she did not take the medicine. Most of her symptoms are bloating and abdominal pain. She does not have much gas or nausea. She has tried reducing her specific foods and has undergone allergy testing in the past. She was notified of having a milk allergy and also a environmental allergy to roaches. 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 She does not want to take PPI. She avoids triggers with food avoidance. Has eliminated dairy and gluten from her diet. Would like to see about getting an allergen panel done. XR fluoro esophagus performed 02/2018 noted luminal narrowing around C6-T1. Mild esophageal dysmotility identified. There is adequate clearance of the esophagus with a second instructed swallow. ED visit 03/31/19 for abdominal pain suprapubic and left flank. History of EOE. Short-term memory impaired due to previous brain injury. CT abd/pel 03/31/19 with partially cystic left adnexa which may be better assessed with pelvic sonogram. [facility] Musculoskeletal: Positive for back pain Exam Const General: cooperative and comfortable Nutritional Appearance: average body habitus and well nourished [facility] Head: normal to inspection Ears: hearing grossly normal bilaterally Nose: external nose normal Face and sinus: normal facial exam Mouth: oral mucosae normal Throat: posterior oropharynx normal Eyes General: appearance normal, both eyes and all related structures Neck Neck: normal visual inspection Chest Chest palpation & inspection: normal inspection of the chest and normal palpation of entire chest wall Resp Effort & Inspection: normal respiratory effort Auscultation: Bilateral: Clear to Auscultation Cardio Palpation: normal PMI Rate: regular rate Rhythm: regular rhythm GI Inspection: normal to inspection Auscultation: normal bowel sounds Percussion: normal to percussion Palpation: no hepatosplenomegaly Skin General: no rashes or lesions noted Neuro General: patient alert Extrem General: normal to inspection Psych Affect: normal affect Quality Reporting Tobacco Screening ([facility] 138) Smoking Status: Never smoker Assessment and Plan Assessment and Plan (1) Eosinophilic esophagitis: Status: Acute Orders: Orders: CPK Total, Creatine Kinase Today CRP Today Erythrocyte Sed Rate Today Angiotensin Convert Enzyme Today ANCA Today Celiac Disease Profile Today Immunoglobulin E Today Immunoglobulin G Today Immunoglobulin M Today Allergen, Rast Food Profile Today LDH Today Plan - Dr. Etienne Friend, DO: She will get an EGD to evaluate her upper esophagus and upper GI tract. We will also evaluate her stomach in small bowel for any signs of eosinophilic diseases. We will also get a serum IgE level. (2) Abdominal pain: Status: Acute Plan - Dr. Etienne Friend, DO: We will evaluate her upper GI tract. Since she does have a lactose allergy she could have small intestinal bacterial overgrowth. We will perform biopsies of the stomach and small bowel and check for H. pylori. We will also get above for now seen including biochemical analysis for rheumatoid arthritis, lupus, crest syndrome, Sjogren's syndrome, sarcoidosis. For the appropriate. I have re-examined the patient. There are no clinical changes since date of exam.
--- NOTE | 2021-06-13 06:50 | OP.CCLET_ITS ---
11/22/2021 Mayra Maurer Md Re : Upper GI endoscopy procedure for Johanna Hernandez Dear Erasto This procedure was performed on Sunday, June 13, 2021. My impressions and recommendations are as follows: Impressions : - LA Grade A reflux esophagitis. Biopsied. - Gastritis. Biopsied. - Erythematous mucosa in the pylorus. Biopsied. - Erythematous duodenopathy. Biopsied. Recommendations : - Discharge patient to home. - Resume previous diet. - Continue present medications. - Await pathology results. My findings are described in the full procedure note, which is enclosed. If I can be of further assistance, please feel free to contact me at . Sincerely, Lowell Mitchell, 06/13/2021 6:50:08 AM This report has been signed electronically.
--- NOTE | 2021-06-13 06:50 | OP.EGD_ITS ---
Patient Name: Johanna Hernandez Procedure Date: 06/13/2021 6:26 AM Date of : 1985 Age: 36 Procedure: Upper GI endoscopy Indications: Epigastric abdominal pain, Heartburn Providers: Lowell Mitchell DO Medicines: Sedation Required Anesthesia Staff Assistance Patient Profile: This is a 36 year old female. Refer to note in patient chart for documentation of history and physical. Patient has symptoms of acute abdominal cramping, acute abdominal distention and chronic epigastric abdominal pain. Complications: No immediate complications. Procedure: Pre-Anesthesia Assessment: - Prior to the procedure, a History and Physical was performed, and patient medications and allergies were reviewed. The risks and benefits of the procedure and the sedation options and risks were discussed with the patient. All questions were answered and informed consent was obtained. Patient identification and proposed procedure were verified by the physician in the pre-procedure area. Mental Status Examination: alert and oriented. Airway Examination: normal oropharyngeal airway and neck mobility. Respiratory Examination: clear to auscultation. CV Examination: normal. Prophylactic Antibiotics: The patient does not require prophylactic antibiotics. Prior Anticoagulants: The patient has taken no previous anticoagulant or antiplatelet agents. ASA Grade Assessment: II - A patient with mild systemic disease. After reviewing the risks and benefits, the patient was deemed in satisfactory condition to undergo the procedure. The anesthesia plan was to use moderate sedation / analgesia (conscious sedation). Immediately prior to administration of medications, the patient was re-assessed for adequacy to receive sedatives. The heart rate, respiratory rate, oxygen saturations, blood pressure, adequacy of pulmonary ventilation, and response to care were monitored throughout the procedure. The physical status of the patient was re-assessed after the procedure. After obtaining informed consent, the endoscope was passed under direct vision. Throughout the procedure, the patient's blood pressure, pulse, and oxygen saturations were monitored continuously. The gastroscope was introduced through the mouth, and advanced to the second part of duodenum. The upper GI endoscopy was accomplished without difficulty. The patient tolerated the procedure well. Moderate Sedation: Moderate (conscious) sedation was administered by the endoscopy nurse and supervised by the endoscopist. The patient's oxygen saturation, heart rate, blood pressure and response to care were monitored. Total physician intraservice time was 15 minutes. Scope In: 6:37:06 AM Scope Out: 6:43:33 AM Total Procedure Duration Time 0 hours 6 minutes 27 seconds Findings: LA Grade A (one or more mucosal breaks less than 5 mm, not extending between tops of 2 mucosal folds) esophagitis with no bleeding was found 37 to 40 cm from the incisors. Biopsies were taken with a cold forceps for histology. Verification of patient identification for the specimen was done. Estimated blood loss was minimal. Patchy mild inflammation characterized by erythema was found in the gastric antrum. Biopsies were taken with a cold forceps for histology. Verification of patient identification for the specimen was done. Estimated blood loss was minimal. Localized mildly erythematous mucosa without bleeding was found at the pylorus. Biopsies were taken with a cold forceps for histology. Verification of patient identification for the specimen was done. Estimated blood loss was minimal. Patchy mildly erythematous mucosa without active bleeding and with no stigmata of bleeding was found in the first portion of the duodenum. Biopsies were taken with a cold forceps for histology. Verification of patient identification for the specimen was done. Estimated blood loss was minimal. Impression: - LA Grade A reflux esophagitis. Biopsied. - Gastritis. Biopsied. - Erythematous mucosa in the pylorus. Biopsied. - Erythematous duodenopathy. Biopsied. Recommendation: - Discharge patient to home. - Resume previous diet. - Continue present medications. - Await pathology results. Procedure Code(s): --- Professional --- 85334, Esophagogastroduodenoscopy, flexible, transoral; with biopsy, single or multiple G0500, Moderate sedation services provided by the same physician or other qualified health medicare specialist performing a gastrointestinal endoscopic service that sedation supports, requiring the presence of an independent trained observer to assist in the monitoring of the patient's level of consciousness and physiological status; initial 15 minutes of intra-service time; patient age 5 years or older (additional time may be reported with 64607, as appropriate) CPT copyright 2017 [employer]. All rights reserved. The codes documented in this report are preliminary and upon extension course counselor review may be revised to meet current compliance requirements. Lowell Mitchell DO 06/13/2021 6:50:08 AM This report has been signed electronically. Number of Addenda: 1 Note Initiated On: 06/13/2021 6:26 AM Addendum Number: 1 Addendum Date: 11/22/2021 6:32:28 AM MAC was used as sedation for this procedure. Lowell Mitchell DO 11/22/2021 6:32:32 AM This report has been signed electronically.
== END 2021-06-13 07:36 | disposition home or self-care (01) ==
LOC: EN 05:42 → AC 05:43
PROVIDERS: Anesthesiology; PCP Internal Medicine; Referring Provider Internal Medicine; Visit Provider Internal Medicine Gastroenterology
PROC: 0DJ08ZZ Inspection of Upper Intestinal Tract, Via Natural or Artificial Opening Endoscopic (ICD-10-PCS; CPT 43235; principal; 2021-06-13 06:25)
DX: K20.0 Eosinophilic esophagitis (principal); K29.70 Gastritis, unspecified, without bleeding; Z79.899 Other long term (current) drug therapy
CPT/HCPCS: 43239; 81025; 88305; 88313; 88342; J7120; J2405

== ENCOUNTER → 2024-08-20 | Outpatient (CLI) | payer MEDICAID, SELFPAY ==
--- OUTSIDE RECORDS SUMMARY | 2024-08-20 19:46 | XMS RPT_ITS | CCD ---
Author Organization [facility] Care Team Providers Care Superintendent Marine Name Role Phone MD Gaby Solis Primary Care Provider Unavailab MD Gaby Bolden Referring Provider Unavailable Friend, Dr. Etienne Attending Provider Friend, Dr. Etienne Other Provider Unavailable Primary Care Provider Unavailabl erick Solis MD, Gaby Primary Care Provider Erasto RAYMOND, Gaby Primary Care Provider Gaby Solis MD Primary Care Provider Gaby Solis MD Primary Care Provider Gaby Solis MD Primary Care Provider Denbow PA-C, Suzi L Unavailable Older SCREEN EXAMINER.ENGINE TEST CELL TECHNICIAN, Antoinette Unavailable Bogner PA-C, Meghan Unavailable Denbow PA-C, Suzi L Unavailable Bogner PA-C, Meghan Unavailable GANTA, GABY Primary Care Unavailable OLDER, ANTOINETTE Attending Unavailable GANTA, GABY Primary Care Unavailable CLAU, LENA Attending Unavailable GANTA, GABY Referring Unavailable GANTA, GABY Primary Care Unavailable GANTA, GABY Referring Unavailable GANTA, GABY Primary Care Unavailable GANTA, GABY Attending Unavailable GANTA, GABY Primary Care Unavailable GANTA, GABY Primary Care Unavailable CLAU, LENA Attending Unavailable GANTA, GABY Primary Care Unavailable OLDER, ANTOINETTE Attending Unavailable GANTA, GABY Primary Care Unavailable CLAU, LENA Attending Unavailable GANTA, GABY Primary Care Unavailable DARIUSZ DUNCAN Attending Unavailable HSIA, OCTAVIO T Referring Unavailable GANTA, GABY Primary Care Unavailable PERLAJHOANAN Attending Unavailable HSIA, OCTAVIO T Referring Unavailable GANTA, GABY Primary Care Unavailable CLAU, LENA Attending Unavailable GANTA, GABY Primary Care Unavailable OLDER, ANTOINETTE Referring Unavailable GANTA, GABY Primary Care Unavailable OLDER, ANTOINETTE Attending Unavailable GANTA, GABY Primary Care Unavailable PERLA, DARIUSZ Attending Unavailable HSIA, OCTAVIO T Referring Unavailable GANTA, GABY Primary Care Unavailable PERLA, DARIUSZ Attending Unavailable HSIA, OCTAVIO T Referring Unavailable PERLA, DARIUSZ Attending Unavailable HSIA, OCTAVIO T Referring Unavailable GANTA, GABY Primary Care Unavailable CLAU, LENA Attending Unavailable GANTA, GABY Primary Care Unavailable NARA OCAMPO Attending Unavailable GANTA, GABY Primary Care Unavailable SUZI RODRIGUEZ Referring Unavailable GANTA, GABY Primary Care Unavailable CLAU, LENA Referring Unavailable GANTA, GABY Primary Care Unavailable PERLA, DARIUSZ Attending Unavailable HSIA, OCTAVIO T Referring Unavailable GANTA, GABY Primary Care Unavailable OLDER, ANTOINETTE Attending Unavailable GANTA, GABY Primary Care Unavailable OLDER, ANTOINETTE Referring Unavailable GANTA, GABY Primary Care Unavailable GANTA, GABY Primary Care Unavailable GANTA, GABY Primary Care Unavailable GANTA, GABY Referring Unavailable GANTA, GABY Primary Care Unavailable GLORIA JEROME Attending Unavailable OLDER, ANTOINETTE Referring Unavailable GANTA, GABY Primary Care Unavailable CLAU, LENA Referring Unavailable GANTA, GABY Primary Care Unavailable OLDER, ANTOINETTE Referring Unavailable HSIA, OCTAVIO T Attending Unavailable GANTA, GABY Primary Care Unavailable GANTA, GABY Primary Care Unavailable CLAU, LENA Referring Unavailable Allergies Allergy Classification Reported Allergen(s) Allergy Type Date of Onset Reaction(s) Facility (1 source) Doxycycline Drug Allergy 2 JOINT PAIN [facility] Work Phone: (20 sources) Penicillins; Translations: [PENICILLINS] Allergy to substance 6 Hives [facility] Work Phone: (1 source) Sulfamethoxazole Drug Allergy 2 Swelling [facility] Work Phone: (20 sources) Doxycycline; Translations: [DOXYCYCLINE HYCLATE] Drug Allergy 8 Unknown [facility] (20 sources) Sulfonamides (Antibiotic); Translations: [SULFA (SULFONAMIDE ANTIBIOTICS)] Drug Allergy 0 Swelling [facility] Medications Current Medications Medication Drug Class(es) Dates Sig (Normalized) Sig (Original) adapalene 0.003 mg/mg / benzoyl peroxide 0.025 mg/mg topical gel (20 sources) Retinoid Start: 01-23-2022 adapalene-benzoyl peroxide 0.3-2.5 % Apply to affected area three times a week. 01/23/2022 Active Comment on above: Apply to affected ar ea three times a week. 24 hr amphetamine aspartate 3.75 mg / amphetamine sulfate 3.75 mg / dextroamphetamine saccharate 3.75 mg / dextroamphetamine sulfate 3.75 mg extended release oral capsule (20 sources) Central Nervous System Stimulant Start: 05-24-2024 End: 09-19-2024 take 1 capsule by mouth once daily amphetamine-dextro amphetamine XR (ADDERALL XR) 15 mg capsule Indications: Attention deficit hyperactivity disorder (ADHD), predominantly inattentive type Take 1 capsule by mouth once daily for 30 days. 30 capsule 07/29/2024 08/28/2024 Active Start: 09-05-2023 End: 05-22-2024 take 1 capsule by mouth once daily amphetamine-dextroamphetamine XR (ADDERA LL XR) 15 mg capsule Indications: Attention deficit hyperactivity disorder (ADHD), predominantly inattentive type Take 1 capsule by mouth once daily for 30 days. 30 capsule 04/22/2024 05/21/2024 Discontinued Start: 08-20-2023 End: 09-05-2023 take 1 capsule by mouth once daily amphetamine-dextroamphetamine XR (ADDERA LL XR) 5 mg capsule Indications: Attention deficit disorder, unspecified hyperactivity presence Take 1 capsule by mouth once daily for 14 days. Take with 10mg to equal 15mg 14 capsule 0 08/20/2023 09/05/2023 Discontinued Start: 10-11-2022 End: 09-06-2023 take 1 capsule by mouth once daily amphetamine-dextroamphetamine XR (ADDERA LL XR) 10 mg capsule Indications: Attention deficit disorder, unspecified hyperactivity presence Take 1 capsule by mouth once daily for 30 days. Do not start before July 08, 2023. 30 capsule 0 07/08/2023 09/05/2023 Discontinued Start: 09-07-2022 End: 10-07-2022 take 1 capsule by mouth once daily amphetamine-dextroamphetamine XR (ADDERA LL XR) 10 mg biphasic capsule Indications: Attention deficit disorder, unspecified hyperactivity presence Take 1 capsule by mouth once daily for 30 days. Do not start before September 07, 2022. 30 capsule 0 09/07/2022 10/07/2022 Active Start: 08-09-2022 End: 09-03-2022 take 1 capsule by mouth once daily amphetamine-dextroamphetamine XR (ADDERA LL XR) 10 mg biphasic capsule Indications: Attention deficit disorder, unspecified hyperactivity presence Take 1 capsule by mouth once daily for 30 days. 30 capsule 0 08/09/2022 09/03/2022 Discontinued Start: 06-24-2022 End: 07-24-2022 take 1 capsule by mouth once daily amphetamine-dextroamphetamine XR (ADDERA LL XR) 10 mg 24 hr capsule Indications: Attention deficit disorder, unspecified hyperactivity presence Take 1 capsule by mouth once daily for 30 days. 30 capsule 0 06/24/2022 Active Comment on above: Take 1 capsule by mo uth once daily for 30 days. Take 1 capsule by mo uth once daily for 30 days. Do not start before September 07, 2022. Take 1 capsule by mo uth once daily for 30 days. Do not start before October 11, 2022. Take 1 capsule by mo uth once daily for 30 days. Do not start before November 10, 2022. Take 1 capsule by mo uth once daily for 30 days. Do not start before December 10, 2022. Take 1 capsule by mo uth once daily for 30 days. Do not start before January 09, 2023. Take 1 capsule by mo uth once daily for 30 days. Do not start before April 09, 2023. Take 1 capsule by mo uth once daily for 30 days. Do not start before March 10, 2023. Take 1 capsule by mo uth once daily for 30 days. Do not start before February 08, 2023. Take 1 capsule by mo uth once daily for 30 days. Do not start before June 08, 2023. Take 1 capsule by mo uth once daily for 30 days. Do not start before May 09, 2023. Take 1 capsule by mo uth once daily for 30 days. Do not start before August 07, 2023. Take 1 capsule by [facility] once daily for 30 days. Do not start before July 08, 2023. betamethasone 0.5 mg/ml / clotrimazole 10 mg/ml topical cream (2 sources) Azole Antifungal, Corticosteroid Start: 06-22-19 End: 06-29-19 clotrimazole-betamet hasone (LOTRISONE) cream Apply 1 application to affected area twice daily for 7 days. 15 g 0 06/21/2022 06/28/2022 Active Comment on above: Apply 1 application to affected area twice daily for 7 days. clindamycin 10 mg/ml topical lotion (20 sources) Lincosamide Antibacterial Start: 01-09-20 Clindamycin Phosphate (CLEOCIN T) 1 % lotion Apply once a day as a spot treatment to the face 01/08/2023 Active Comment on above: Apply once a day as a spot treatment to the face clotrimazole 10 mg oral lozenge (5 sources) Azole Antifungal Start: 01-31-20 End: 02-14-20 take 1 tablet by mouth five times daily clotrimazole (MYCELEX) 10 mg rehana Indications: Oral pain Use 1 Rehana as instructed five times a day for 14 days. mucoadhesive buccal tablets. 70 tablet 0 01/30/2023 02/13/2023 Active Start: 10-01-2021 End: 10-15-2021 clotrimazole (MYCELEX) 10 mg rehana Use 1 Rehana as instructed five times daily for 14 days. 70 Rehana 0 10/01/2021 10/15/2021 Active Comment on above: Use 1 Rehana as inst ructed five times daily for 14 days. Use 1 Rehana as inst ructed five times a day for 14 days. mucoadhesive buccal tablets. Collagenase powd (14 sources) End: 03-25-2024 Collagenase powd 03/25/2024 Discontinued Collagenase powd Active Collagenase powd doxycycline hyclate 100 mg oral capsule (14 sources) Tetracycline-class Drug Start: 09-26-2023 End: 10-03-2023 take 1 capsule by mouth twice daily doxycycline hyclate (VIBRAMYCIN) 100 mg capsule Take 1 capsule (100 mg) by mouth two times a day for 7 days. 14 capsule 0 09/26/2023 10/03/2023 Active Start: 06-08-2021 take 100 mg by mouth twice daily Doxycycline Monohydrate Active 100 MG PO TWICE A DAY June 08, 2021 1:36pm Start: 04-25-2021 End: 11-30-2021 take 1 tablet by mouth twice daily doxycycline monohydrate 100 mg tablet Indications: Acne, unspecified acne type Take 1 tablet by mouth twice daily. 0 04/25/2021 11/30/2021 Discontinued (Other) Comment on above: Take 1 tablet by chris twice daily. fluticasone propionate 0.05 mg/actuat metered dose nasal spray (20 sources) Corticosteroid Start: End: take 2 spray(s) by mouth once daily fluticasone (FLONASE) 50 mcg/actuation nasal spray Indications: Seasonal allergies Use 2 sprays in each nostril once daily. Rinse mouth after use. 1 each 11 05/31/2024 Active Start: 06-26-2017 End: 09-01-2017 Fluticasone Propionate (Flon ase Allergy Relief) 9.9 ML spray,suspension Active 9.9 ML NS DAILY September 01, 2017 5:50am Comment on above: Use 2 Sprays in each nostril once daily. Rinse mouth after use. ibuprofen 400 mg oral tablet (20 sources) Nonsteroidal Anti-inflammatory Drug ibuprofen (MOTRIN ORAL) Take 400 mg by mouth as needed. Active ibuprofen (MOTRI N ORAL) Take by mouth. 0 Active Comment on above: Take by mouth. Take 400 mg by mouth as needed. iv contrast (will be provided with radiology test) (1 source) Start: 2022 End: 2022 inject 1 dose intravenously once iv contrast (will be provided with radiology test) MRI Brain Inject, intravenously, once for 1 dose.No IV access, insert saline lock prior to beginning of sedation, infusion, injection of imaging exam.Discontinue saline lock post exam. If Pt. has a central line or IVAD, may access for administration according to line specific nursing protocol.Once exam is complete flush line and de-access according to line specific nursing protocol in the MR contrast administration guidelines link 1 Each 0 06/18/2022 06/19/2022 Active Comment on above: MRI Brain Inject, in travenously, once for 1 dose.No IV access, insert saline lock prior to beginning of sedation, infusion, injection of imaging exam.Discontinue saline lock post exam. If Pt. has a central line or IVAD, may access for administration according to line specific nursing protocol.Once exam is complete flush line and de-access according to line specific nursing protocol in the MR contrast administration guidelines link meclizine hydrochloride 25 mg oral tablet (1 source) Antiemetic Start: 2018 take 25 mg by mouth four times daily as needed Meclizine Active 25 MG PO 4 TIMES DAILY NEEDED January 10, 2019 9:28pm miconazole nitrate 20 mg/ml vaginal cream (1 source) Azole Antifungal Start: 2021 End: 2021 miconazole (MONISTAT) 2 % vaginal cream Use 1 Applicator vaginally daily at bedtime for 7 days. 45 g 0 11/30/2021 12/07/2021 Active Comment on above: Use 1 Applicator vag inally daily at bedtime for 7 days. moxifloxacin 400 mg oral tablet (2 sources) Quinolone Antimicrobial Start: 2023 End: 2023 take 1 tablet by mouth once daily moxifloxacin (AVELOX) 400 mg tablet Take 1 tablet by mouth once daily for 7 days. 7 tablet 0 09/26/2023 10/03/2023 Active nystatin [id number] unt/ml oral suspension (8 sources) Polyene Antifungal Start: 2024 nystatin (MYCOSTATIN) 100,000 unit/mL suspension Indications: Oral thrush Take 5 mL by mouth four times daily. 1tsp swish in mouth for several minutes, then swallow (or expectorate) 4 times daily until gone. 473 mL 2 07/29/2024 Active Start: 04-19-2024 End: 04-24-2024 take 5 mL by mouth three times daily nystatin (MYCOSTATIN) 100,000 units/mL oral liquid Take 5 mL by mouth three times a day for 5 days. 75 mL 04/19/2024 04/24/2024 Active Start: 01-30-2023 End: 12-07-2023 nystatin (MYCOSTATIN) 100,00 0 unit/mL suspension Take 5 mL by mouth four times daily for 10 days. 1tsp swish in mouth for several minutes, then swallow (or expectorate) 4 times daily until gone. 200 mL 0 01/30/2023 01/30/2023 Discontinued Comment on above: Take 5 mL by mouth f our times daily for 10 days. 1tsp swish in mouth for several minutes, then swallow (or expectorate) 4 times daily until gone. tiZANidine 4 mg oral tablet (12 sources) Central alpha-2 Adrenergic Agonist Start: 06-17-2024 tiZANidine (ZANAFLEX) 4 mg tablet 1 tab qhs prn 30 tablet 4 06/17/2024 Active triamcinolone acetonide 0.25 mg/ml topical cream (14 sources) Corticosteroid Start: 09-19-2023 End: 03-25-2024 triamcinolone (KENALOG) 0.025 % cream Apply to affected area two times a day. 80 g 09/19/2023 03/25/2024 Discontinued (Discontinued by Patient) Completed/Discontinued Medications Medication Drug Class(es) Dates Sig (Normalized) Sig (Original) acetaminophen 325 mg oral tablet (20 sources) End: 05-02-2022 acetaminophen (TYLENOL) 325 mg tablet Take 325 mg by mouth. 0 05/02/2022 Discontinued Comment on above: Take 325 mg by mouth . acetaminophen 325 mg / oxyCODONE hydrochloride 5 mg oral tablet (1 source) Opioid Agonist Start: 11-24-2017 End: 11-27-2017 take 1 tablet by mouth every six hours as needed Oxycodone-Acetamino phen Discontinued 1 TABLET PO EVERY 6 HOURS NEEDED 12 3 November 24, 2017 7:02pm November 27, 2017 12:08am baclofen 10 mg oral tablet (20 sources) gamma-Aminobutyr ic Acid-ergic Agonist Start: 03-05-2023 End: 07-29-2024 baclofen 10 mg tablet 1 tab bid prn for spasms 40 tablet 2 04/26/2024 07/29/2024 Discontinued Start: 04-28-2020 End: 11-24-2022 baclofen (LIORESAL) 10 mg ta blet 1 tab bid prn for spasms 40 tablet 4 05/24/2022 Active Comment on above: 1 tab bid prn for sp asms Take 1 tablet by chris th BID as needed for spasms 24 hr buPROPion hydrochloride 300 mg extended release oral tablet (13 sources) Aminoketone Start: 2 End: 2 take 1 tablet by mouth once daily buPROPion XL (WELLBUTRIN XL) 300 mg 24 hr tablet Indications: Depression, unspecified depression type , Inattention Take 1 tablet by mouth once daily. 30 tablet 5 10/03/2021 11/30/2021 Discontinued (Other) Start: 01-10-2019 take 300 mg by mouth once taylor y Bupropion Hcl Active 300 MG PO DAILY January 10, 2019 8:03pm Comment on above: TAKE 1 TABLET BY CHRIS TH EVERY DAY Take 1 tablet by chris th once daily. Calcium Carbonate (12 sources) End: 11-30-2021 calcium carbonate (CALCIUM 500 ORAL) Take by mouth. 0 11/30/2021 Discontinued (Other) calcium carbonat e (CALCIUM 500 ORAL) Take by mouth. 0 Active Comment on above: Take by mouth. cholecalciferol 1.25 mg oral capsule (20 sources) Vitamin D Start: 4 End: 4 take 1 capsule by mouth every week cholecalciferol, Vitamin D3, (VITAMIN D3) 1,250 mcg (50,000 unit) cap capsule Indications: Vitamin D deficiency Take 1 capsule by mouth one time a week. 08/21/2023 01/05/2024 Discontinued Start: 05-23-2023 End: 08-21-2023 take 1 capsule by mouth two times weekly cholecalciferol, Vitamin D3, (VITAMIN D3) 1,250 mcg (50,000 unit) cap capsule Indications: Vitamin D deficiency Take 1 capsule by mouth two times a week. 24 capsule 0 05/23/2023 08/21/2023 Discontinued (Adjust Sig - Block E-Cancel) Comment on above: Take 1 capsule by mo ut two times a week. clobetasol propionate 0.0005 mg/mg topical ointment (20 sources) Corticosteroid Start: 07-07-19 21 End: 05-03-19 23 clobetasol (TEMOVATE) 0.05 % ointment Apply to affected areas as needed. 30 g 1 07/06/2020 05/02/2022 Discontinued Comment on above: Apply to affected ar eas as needed. escitalopram 10 mg oral tablet (10 sources) Serotonin Reuptake Inhibitor Start: 10-27-19 End: 01-24-20 take 1 tablet by mouth once daily escitalopram oxalate (LEXAPRO) 10 mg tablet Indications: Anxiety Take 1 tablet by mouth once daily. 30 tablet 2 10/26/2021 01/23/2022 Discontinued Comment on above: Take 1 tablet by chris th once daily. fluconazole 100 mg oral tablet (20 sources) Azole Antifungal Start: 03-25-19 End: 04-19-19 fluconazole (DIFLUCAN) 100 mg tablet Take 1 tablet by mouth once daily. Take 2 tablets on day 1 then 1 tablet daily after 8 tablet 04/06/2024 04/19/2024 Discontinued Start: 09-29-2023 End: 03-25-2024 fluconazole (DIFLUCAN) 150 m g tablet Take 1 tablet today, then a 2nd tablet in 72 hours, and 3rd tablet in another 72 hours. 3 tablet 09/29/2023 03/25/2024 Discontinued Start: 09-29-2023 End: 09-29-2023 take 1 tablet by mouth once fluconazole (DIFLUCAN) 150 mg tablet Take 1 tablet by mouth one time only for 1 dose. 1 tablet 0 09/29/2023 09/29/2023 Discontinued Start: 07-28-2023 End: 08-04-2023 take 1 tablet by mouth once daily fluconazole (DIFLUCAN) 100 mg tablet Indications: Burning tongue Take 1 tablet by mouth once daily for 7 days. 7 tablet 0 07/28/2023 08/04/2023 Active Start: 04-03-2023 End: 04-10-2023 take 1 tablet by mouth once daily fluconazole (DIFLUCAN) 200 mg tablet Indications: Oral thrush , Acute vaginitis Take 1 tablet by mouth once daily for 7 days. 7 tablet 0 04/03/2023 04/10/2023 Active Start: 02-20-2023 End: 04-03-2023 fluconazole (DIFLUCAN) 100 m g tablet Take two tablets (200 mg) by mouth x 1 today, then one tablet daily for six days 8 tablet 0 02/20/2023 04/03/2023 Discontinued Comment on above: Take 1 tablet by chris th once daily for 7 days. Take two tablets (20 0 mg) by mouth x 1 today, then one tablet daily for six days Multivitamin capsule (12 sources) End: 11-30-2021 take 1 capsule by mouth once daily Multivitamin capsule Take 1 capsule by mouth once daily. 0 11/30/2021 Discontinued (Other) take 1 capsule by mouth once michelle [address] Multivitamin capsule Take 1 capsule by mouth once daily. 0 Active Comment on above: Take 1 capsule by [facility] once daily. norethindrone acetate 5 mg oral tablet (20 sources) Start: End: norethindrone (AYGESTIN) 5 mg tablet Indications: abnormal uterine bleeding due to hormonal imbalance Take 1 tablet TID until bleeding stops, the BID x 3 days, the daily x 3 days. 35 tablet 0 04/29/2022 10/17/2022 Discontinued Comment on above: Take 1 tablet TID un til bleeding stops, the BID x 3 days, the daily x 3 days. pantoprazole 20 mg delayed release oral tablet (20 sources) Proton Pump Inhibitor Start: End: take 1 tablet by mouth once daily before breakfast pantoprazole DR (PROTONIX) 20 mg tablet Indications: Gastroesophageal reflux disease without esophagitis Take 1 tablet by mouth daily before breakfast. Take on empty stomach, 1/2 hr before meal. 30 tablet 4 10/26/2021 05/02/2022 Discontinued Comment on above: Take 1 tablet by [facility] daily before breakfast. Take on empty stomach, 1/2 hr before meal. predniSONE 20 mg oral tablet (6 sources) Start: End: take 1 tablet by mouth once daily predniSONE (DELTASONE) 20 mg tablet Take 1 tablet by mouth once daily. 5 tablet 0 10/03/2021 11/30/2021 Discontinued (Other) Comment on above: Take 1 tablet by [facility] once daily. spironolactone 25 mg oral tablet (20 sources) Aldosterone Antagonist Start: 024 End: take 1 tablet by mouth once daily spironolactone (ALDACTONE) 25 mg tablet Take 25 mg by mouth once daily. 07/22/2023 04/19/2024 Discontinued Start: 10-26-2021 End: 04-24-2022 take 0.5 tablet by mouth once daily spironolactone (ALDACTONE) 50 mg tablet Indications: Acne, unspecified acne type Take 0.5 tablets by mouth once daily. 30 tablet 5 10/26/2021 01/23/2022 Discontinued Start: 09-27-2021 End: 10-26-2021 take 1 tablet by mouth once daily spironolactone (ALDACTONE) 50 mg tablet Take 50 mg by mouth once daily. 0 09/27/2021 10/26/2021 Discontinued Comment on above: Take 50 mg by mouth once daily. Take 0.5 tablets by mouth once daily. Problems Active Problems Problem Classification Problem Date Documented Date Episodic/Chronic Abdominal pain (4 sources) Abdominal pain; Translations: [Unspecified abdominal pain] Episodic Acquired foot deformities (20 sources) Acquired hallux valgus; Translations: [Hallux valgus (acquired), unspecified foot] Onset: 04-22-2005 04-22-2005 Chronic Adjustment disorders (2 sources) Adjustment disorder with mixed anxiety and depressed mood; Translations: [Adjustment disorder with mixed anxiety and depressed mood] 06-30-2023 Chronic Anxiety disorders (20 sources) Anxiety; Translations: [Anxiety disorder, unspecified] Onset: 07-09-2018 07-09-2018 Chronic Attention-deficit, conduct, and disruptive behavior disorders (1 source) Attention-deficit hyperactivity disorder, predominantly inattentive type; Translations: [Attention deficit hyperactivity disorder (ADHD), predominantly inattentive type] Onset: 04-16-2023 Chronic Blindness and vision defects (1 source) Blurring of visual image; Translations: [Other visual disturbances] Episodic Cardiac dysrhythmias (2 sources) Cardiac arrhythmia; Translations: [Cardiac arrhythmia, unspecified] 05-31-2024 Chronic Cardiac dysrhythmias (2 sources) Tachycardia; Translations: [Tachycardia, unspecified] 05-31-2024 Episodic Coagulation and hemorrhagic disorders (2 sources) Easy bruising; Translations: [Spontaneous ecchymoses] Onset: 05-31-2024 05-31-2024 Episodic Conditions associated with dizziness or vertigo (5 sources) Vertigo; Translations: [Dizziness and giddiness] Episodic Delirium, dementia, and amnestic and other cognitive disorders (20 sources) Postconcussion syndrome; Translations: [Postconcussional syndrome] Onset: 07-09-2018 07-09-2018 Chronic Diabetes mellitus without complication (1 source) Hyperglycemia; Translations: [Hyperglycemia, unspecified] Episodic Diseases of mouth; excluding dental (10 sources) Painful mouth; Translations: [Other lesions of oral mucosa] Onset: 05-31-2024 01-30-2023 Episodic Disorders usually diagnosed in infancy, childhood, or adolescence (20 sources) Attention deficit hyperactivity disorder, predominantly inattentive type; Translations: [Other specified behavioral and emotional disorders with onset usually occurring in childhood and adolescence] Onset: 04-16-2023 Chronic Esophageal disorders (3 sources) Eosinophilic esophagitis; Translations: [Eosinophilic esophagitis] Chronic Headache; including migraine (1 source) Migraine without aura, not refractory ; Translations: [Chronic migraine without aura, not intractable, without status migrainosus] Chronic Headache; including migraine (1 source) Headache; Translations: [Worsening headaches] Episodic Inflammatory diseases of female pelvic organs (1 source) Acute vaginitis; Translations: [Acute vaginitis] 04-03-2023 Episodic Malaise and fatigue (3 sources) Fatigue; Translations: [Other fatigue] Onset: 06-21-2024 05-31-2024 Episodic Miscellaneous mental health disorders (3 sources) Pain disorder with psychological factor; Translations: [Pain disorder with related psychological factors] Chronic Mood disorders (20 sources) Depressive disorder; Translations: [Other specified depressive episodes] Onset: 09-20-2010 10-15-2005 Chronic Mood disorders (1 source) Mood disorders; Translations: [Depression, unspecified depression type] Onset: 02-06-2017 Mycoses (7 sources) Candidiasis of mouth; Translations: [Candidal stomatitis] Onset: 03-25-2024 Episodic Nonspecific chest pain (1 source) Chest pain; Translations: [Other chest pain] Episodic Nutritional deficiencies (5 sources) Vitamin D deficiency; Translations: [Vitamin D deficiency, unspecified] Onset: 06-21-2024 08-21-2023 Chronic Nutritional deficiencies (2 sources) Iron deficiency; Translations: [Iron deficiency] Onset: 06-21-2024 06-21-2024 Episodic Other congenital anomalies (20 sources) Congenital pes planus; Translations: [Congenital pes planus, unspecified foot] Onset: 04-22-2005 04-22-2005 Chronic Other connective tissue disease (1 source) Aura; Translations: [Other symptoms and signs involving the nervous system] Episodic Other ear and sense organ disorders (1 source) Tinnitus of vascular origin; Translations: [Pulsatile tinnitus, bilateral] Episodic Other female genital disorders (2 sources) Vaginal irritation; Translations: [Other specified noninflammatory disorders of vagina] Episodic Other female genital disorders (3 sources) Vaginal discharge; Translations: [Other specified noninflammatory disorders of vagina] 01-05-2024 Episodic Other female genital disorders (1 source) Other specified noninflammatory disorders of vagina; Translations: [Vaginal discharge] Onset: 07-29-2024 Episodic Other lower respiratory disease (5 sources) Dyspnea; Translations: [Shortness of breath] 06-21-2024 Episodic Other lower respiratory disease (1 source) Shortness of breath; Translations: [SOB (shortness of breath)] Onset: 07-08-2024 Episodic Other nervous system disorders (2 sources) Inattention; Translations: [Attention and concentration deficit] Chronic Other nervous system disorders (2 sources) Disorder of autonomic nervous system; Translations: [Disorder of the autonomic nervous system, unspecified] Chronic Other nervous system disorders (4 sources) Chronic pain syndrome; Translations: [Chronic pain syndrome] Chronic Other nervous system disorders (1 source) Other chronic pain; Translations: [Chronic left-sided low back pain, unspecified whether sciatica present] Onset: 07-06-2024 Chronic Other nervous system disorders (1 source) Abnormal sensation; Translations: [Other disturbances of skin sensation] Episodic Other nervous system disorders (2 sources) Impaired cognition; Translations: [Other symptoms and signs involving cognitive functions and awareness] Episodic Other nervous system disorders (1 source) Other symptoms and signs involving cognitive functions and awareness; Translations: [Brain fog] Onset: 05-31-2024 Episodic Other nutritional; endocrine; and metabolic disorders (2 sources) Weight loss; Translations: [Abnormal weight loss] Episodic Other skin disorders (1 source) Acne; Translations: [Acne, unspecified] Episodic Other skin disorders (3 sources) Eruption; Translations: [Rash and other nonspecific skin eruption] 01-14-2023 Episodic Other skin disorders (2 sources) Abnormal hair finding; Translations: [Hair color and hair shaft abnormality, unspecified] 04-16-2023 Episodic Other skin disorders (2 sources) Trachyonychia; Translations: [Nail dystrophy] 04-16-2023 Episodic Other skin disorders (1 source) Rash and other nonspecific skin eruption; Translations: [Rash] Onset: 07-29-2024 Episodic Other upper respiratory disease (2 sources) Seasonal allergy; Translations: [Other seasonal allergic rhinitis] 10-14-2022 Chronic Other upper respiratory infections (3 sources) Sore throat symptom; Translations: [Acute pharyngitis, unspecified] 12-31-2022 Episodic Ovarian cyst (2 sources) Cyst of right ovary; Translations: [Unspecified ovarian cyst, right side] Episodic Residual codes; unclassified (3 sources) Failed encounter; Translations: [No-show for appointment] 12-17-2023 Episodic Spondylosis; intervertebral disc disorders; other back problems (20 sources) Neck pain; Translations: [Cervicalgia] Onset: 07-06-2024 Episodic Sprains and strains (1 source) Sprain of foot; Translations: [Unspecified sprain of left foot, initial encounter] Episodic Superficial injury; contusion (3 sources) Contusion of thigh; Translations: [Contusion of right thigh, initial encounter] Episodic Unclassified (1 source) NO SHOW Unclassified (2 sources) APPOINTMENT CANCELLED Unclassified (1 source) Chronic left-sided low back pain, unspecified whether sciatica present; Translations: [Chronic left-sided low back pain, unspecified whether sciatica present] Onset: 07-06-2024 Unclassified (1 source) Encounter for testing for latent tuberculosis infection; Translations: [Encounter for testing for latent tuberculosis] Onset: 03-09-2024 Unclassified (1 source) No-show for appointment; Translations: [No-show for appointment] Onset: 02-04-2024 Viral infection (1 source) Viral disease; Translations: [Viral infection, unspecified] 08-26-2023 Episodic Past or Other Problems Problem Classification Problem Date Documented Date Episodic/Chronic Allergic reactions (2 sources) Eczema; Translations: [Dermatitis, unspecified] Onset: 09-19-2023 09-19-2023 Episodic Genitourinary symptoms and ill-defined conditions (20 sources) Dysuria; Translations: [Dysuria] Onset: 08-25-2009 08-25-2009 Episodic Immunizations and screening for infectious disease (15 sources) Patient encounter status; Translations: [Encounter for screening for infections with a predominantly sexual mode of transmission] Onset: 09-05-2023 Episodic Intracranial injury (20 sources) Traumatic brain injury; Translations: [Unspecified intracranial injury with loss of consciousness of unspecified duration, initial encounter] Onset: 12-20-2019 12-20-2019 Episodic Menstrual disorders (20 sources) Dysmenorrhea; Translations: [Dysmenorrhea, unspecified] Onset: 08-25-2009 Resolved: 12-31-2021 08-25-2009 Chronic Other aftercare (1 source) 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; Translations: [Medication management] Onset: 10-11-2023 Episodic Other connective tissue disease (20 sources) Spasm; Translations: [Other muscle spasm] Onset: 11-28-2009 11-28-2009 Episodic Other female genital disorders (20 sources) Dyspareunia; Translations: [Dyspareunia] Onset: 08-25-2009 Resolved: 12-31-2021 08-25-2009 Chronic Other female genital disorders (20 sources) Female genital organ symptoms; Translations: [Unspecified condition associated with female genital organs and menstrual cycle] Onset: 08-25-2009 08-25-2009 Episodic Other nervous system disorders (20 sources) Abnormal gait; Translations: [Unspecified abnormalities of gait and mobility] Onset: 05-06-2005 05-06-2005 Episodic Other screening for suspected conditions (not mental disorders or infectious disease) (2 sources) Serology positive; Translations: [Other specified abnormal findings of blood chemistry] Onset: 04-19-2024 03-11-2024 Episodic Urinary tract infections (20 sources) Trigonitis; Translations: [Trigonitis without hematuria] Onset: 10-10-2009 10-10-2009 Episodic Results Test Name Value Interpretation Reference Range Facility [facility] 08-19-2024 CNOV Office Visit (OTOLMM ) JOHANNA CARVER ([id number]) 1985 F Date Time Provider Department 08/19/24 10:30 AM GLORIA JEROME During your visit today, we recorded the following information about you: Gloria Jerome MD 08/19/2024 11:07 AM Signed HPI Johanna Carver is a 39 year old female who presents with dry mouth burning tongue. Patient is seen in consultation for Antoinette anthony CNP. Patient states since March she has had a dry mouth and a burning tongue. Patient presently has no dental symptoms but was placed on an antibiotic for extended period of time for dental infection and also was placed on antifungal. Patient is also bothered by the how her tongue looks.. ROS General Weight loss: No Fatigue: No Night sweats:No Cardiac Chest pain:No Fast heart rate:No Swelling in the feet:No Respiratory Short of breath:No Cough:No Wheezing:No Gastrointestinal Nausea:No Vomiting:No Indigestion:No Past medical history, family history, and social history reviewed. PE LMP 07/25/2024 (Within Weeks) General: Patient is awake, alert, NAD. Voice is normal. Skin: normal Eyes: Extraocular motion and Gaze is normal. Ears: Right external auditory canal is normal. TMJ: normal. Right tympanic membranes normal. Left external auditory canal is normal. Left tympanic membrane normal. Nose: Septum is normal. Turbinates are normal. Nasopharynx:normal Oral Cavity/Oropharynx: Lips normal Dentition normal Tongue normal. Tonsils normal. Palate and uvula normal. Pharynx posterior normal Hypopharynx: Base of tongue normal Pyriform sinus normal. Larynx: Vocal cords normal. Epiglottis normal. Post cricoid normal. Salivary glands: Parotid normal. Submandibular and sublingual normal. Thyroid: normal. Lymphatic/Neck: Lymph nodes normal. Neurologic: Facial nerve normal. ASSESSMENT/PLAN: 1. Xerostomia - ICD9: 527.7, ICD10: K11.7 (primary diagnosis) 2. Burning tongue - ICD9: 529.6, ICD10: K14.6 I explained the patient that her physical exam is normal with no evidence of any infection or fungus and that typically this may be more related to her stress anxiety or ADHD. I have recommended that she takes a low-dose tricyclic antidepressant which she is declined. I have also recommended that she stop brushing her tongue since that may be complicating her symptoms. Patient was obviously not happy with my evaluation so I recommended that she get a second opinion Gloria Jerome MD Findings will be communicated to the referring physician via mail or electronic medical record. Referring Provider: ANTOINETTE ANTHONY [[id number]] Allergies As of Date: 08/19/2024 Noted Allergy Reaction PENICILLINS 10/03/2005 4 - Hives SULFA (SULFONAMIDE ANTIBIOTICS) 05/31/2019 7 - Swelling Comments: Swelling of the tongue Date Reviewed: 08/19/2024 Reviewed by: Ely Nuñez Ma - Fully Assessed Reason for Visit: mouth poroblem [Other] Cmt: Since 04/20 has had dry mouth and burning tongue. Has tried several meds for this. Primary Visit Diagnosis:Xerostomia [K11.7] Other Visit Diagnosis:Burning tongue [K14.6] Order(s):CONSULT TO ENT [9008] Order #: [id number]: 1 Prescriptions as of 08/19/2024 - amphetamine-dextroamphetamin e XR (ADDERALL XR) 15 mg capsule Take 1 capsule by mouth once daily for 30 days. - nystatin (MYCOSTATIN) 100,000 unit/mL suspension Take 5 mL by mouth four times daily. 1tsp swish in mouth for several minutes, then swallow (or expectorate) 4 times daily until gone. - tiZANidine (ZANAFLEX) 4 mg tablet 1 tab qhs prn - fluticasone (FLONASE) 50 mcg/actuation nasal spray Use 2 sprays in each nostril once daily. Rinse mouth after use. - Clindamycin Phosphate (CLEOCIN T) 1 % lotion Apply once a day as a spot treatment to the face - adapalene-benzoyl peroxide 0.3-2.5 % Apply to affected area three times a week. - ibuprofen (MOTRIN ORAL) Take 400 mg by mouth as needed. 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] 04/22/2005 ABNORMALITY OF GAIT [R26.9] 05/06/2005 DEPRESSIVE DISORDER NEC [F32.89] Unspecified Symptom Associated with Female Shanika*08/25/2009 Dyspareunia [NRX2927] 08/25/2009 12/31/2021 Dysmenorrhea [N94.6] 08/25/2009 12/31/2021 Irregular menstrual cycle [N92.6] 08/25/2009 12/31/2021 Dysuria [R30.0] 08/25/2009 Trigonitis [N30.30] 10/10/2009 Microscopic Hematuria [R31.29] 10/10/2009 Spasm of muscle [M62.838] 11/28/2009 Depression [F32.A] 09/20/2010 Generalized anxiety disorder [F41.1] 07/09/2018 Post concussion syndrome [F07.81] 07/09/2018 Traumatic brain injury (HCC) [S06.9XAA] (more content not included)... Normal [facility] CNTHERAPYon 08-12-2024 CNTHERAPY OT/PT/Speech Visit ( PTWS) JOHANNA CARVER ([id number]) 1985 F Date Time Provider Department 08/12/24 9:00 AM DARIUSZ DUNCAN PTWS Date Time Provider Department Center 08/12/2024 9:00 AM [id number], COLIN PTWS Adam Joel Reason for Visit: PT Discharge [752] Primary Visit Diagnosis:Chronic left-sided low back pain, unspecified whether sciatica present [M54.50, G89.29] Allergies As of Date: 08/12/2024 Noted Allergy Reaction PENICILLINS 10/03/2005 4 - Hives SULFA (SULFONAMIDE ANTIBIOTICS) 05/31/2019 7 - Swelling Comments: Swelling of the tongue Date Reviewed: 07/29/2024 Reviewed by: Iona Person LPN - Fully Assessed Prescriptions as of 08/12/2024 - amphetamine-dextroamphetamin e XR (ADDERALL XR) 15 mg capsule Take 1 capsule by mouth once daily for 30 days. - nystatin (MYCOSTATIN) 100,000 unit/mL suspension Take 5 mL by mouth four times daily. 1tsp swish in mouth for several minutes, then swallow (or expectorate) 4 times daily until gone. - tiZANidine (ZANAFLEX) 4 mg tablet 1 tab qhs prn - fluticasone (FLONASE) 50 mcg/actuation nasal spray Use 2 sprays in each nostril once daily. Rinse mouth after use. - Clindamycin Phosphate (CLEOCIN T) 1 % lotion Apply once a day as a spot treatment to the face - adapalene-benzoyl peroxide 0.3-2.5 % Apply to affected area three times a week. - ibuprofen (MOTRIN ORAL) Take 400 mg by mouth as needed. Payroll Clerk: Addendum Therapy (PT/OT/Speech/Resp) ID: [id number] 08/12/2024 9:55 AM Author: DARIUSZ DUNCAN Signed by DARIUSZ DUNCAN PT on 08/12/2024 at 9:55 AM * * * This document replaces document [id number] * * * Document text: Program_ID:[id number] Access Code: [email or web address] URL: [email or web address] Date: 08-12-2024 Prepared By: Dariusz Duncan Program Notes Exercises - Self Release - 1 x daily - 7 x weekly - sets - reps - Sidelying Hip Abduction - 2 x daily - 7 x weekly - 2-3 sets - 12-15 reps - Sidelying Diagonal Hip Abduction - 2 x daily - 7 x weekly - 2 sets - 8-12 reps - Isometric Glute Med at Wall - 2 x daily - 7 x weekly - 2 sets - 10 reps - Sidelying Reverse Clamshell with Resistance - 2 x daily - 7 x weekly - 2 sets - 10 reps - Side Stepping with Resistance at Ankles - 2 x daily - 7 x weekly - sets - 3-5 reps - Sidelying Diagonal Hip Abduction - 2 x daily - 7 x weekly - 2 sets - 8-12 reps - Single Leg Clock Reach - 2 x daily - 7 x weekly - 2 sets - 8-10 reps Normal [facility] THERAPY NTon 08-12-2024 THERAPY NT HNO ID: [id number] Author: DARIUSZ DUNCAN PT Service: ? Author Type: Physical Therapist Type: Therapy (PT/OT/Speech/Resp) Filed: 08/12/2024 09:55 Note Text: Program_ID:[id number] Access Code: [email or web address] URL: [email or web address] Date: 08-12-2024 Prepared By: Dariusz Duncan Program Notes Exercises - Self Release - 1 x daily - 7 x weekly - sets - reps - Sidelying Hip Abduction - 2 x daily - 7 x weekly - 2-3 sets - 12-15 reps - Sidelying Diagonal Hip Abduction - 2 x daily - 7 x weekly - 2 sets - 8-12 reps - Isometric Glute Med at Wall - 2 x daily - 7 x weekly - 2 sets - 10 reps - Sidelying Reverse Clamshell with Resistance - 2 x daily - 7 x weekly - 2 sets - 10 reps - Side Stepping with Resistance at Ankles - 2 x daily - 7 x weekly - sets - 3-5 reps - Sidelying Diagonal Hip Abduction - 2 x daily - 7 x weekly - 2 sets - 8-12 reps - Single Leg Clock Reach - 2 x daily - 7 x weekly - 2 sets - 8-10 reps Normal [facility] CNTHERAPYon 08-05-2024 CNTHERAPY OT/PT/Speech Visit ( PTWS) JOHANNA CARVER ([id number]) 1985 F Date Time Provider Department 08/05/24 3:45 PM DARIUSZ DUNCAN PTWS Date Time Provider Department [place] 08/05/2024 3:45 PM [id number], COLIN PTWS Adam Joel Reason for Visit: Physical Therapy [503] Primary Visit Diagnosis:Chronic left-sided low back pain, unspecified whether sciatica present [M54.50, G89.29] Allergies As of Date: 08/05/2024 Noted Allergy Reaction PENICILLINS 10/03/2005 4 - Hives SULFA (SULFONAMIDE ANTIBIOTICS) 05/31/2019 7 - Swelling Comments: Swelling of the tongue Date Reviewed: 07/29/2024 Reviewed by: Iona Perosn LPN - Fully Assessed Prescriptions as of 08/05/2024 - amphetamine-dextroamphetamin e XR (ADDERALL XR) 15 mg capsule Take 1 capsule by mouth once daily for 30 days. - nystatin (MYCOSTATIN) 100,000 unit/mL suspension Take 5 mL by mouth four times daily. 1tsp swish in mouth for several minutes, then swallow (or expectorate) 4 times daily until gone. - tiZANidine (ZANAFLEX) 4 mg tablet 1 tab qhs prn - fluticasone (FLONASE) 50 mcg/actuation nasal spray Use 2 sprays in each nostril once daily. Rinse mouth after use. - Clindamycin Phosphate (CLEOCIN T) 1 % lotion Apply once a day as a spot treatment to the face - adapalene-benzoyl peroxide 0.3-2.5 % Apply to affected area three times a week. - ibuprofen (MOTRIN ORAL) Take 400 mg by mouth as needed. Normal [facility] BACTERIAL VAGINOSIS NAATon 0 6- Lactobacillus crispatus+gasseri+ jensenii + Gardnerella vaginalis + Atopobium vaginae rRNA KORY+probe Ql (Vag fld) Not detected Normal Not detected [facility] Comment on above: Order Comment: Speci men Type: SWABOrdering Facility: [facility] Address: [address] [place] [address] Performed By: #### B VAMP, CVTV ####[facility] LABCLIA [id number] [place] [address] [place] TEZ/TRICHOMONAS NAATon 0 07-29-2024 C. glabrata RNA KORY+probe Ql (Vag fld) Not detected Normal Not detected [facility] Comment on above: Order Comment: Speci men Type: SWABOrdering Facility: [facility] Address: [address] [place] [address] Performed By: #### B VAMP, CVTV ####[facility] LABCLIA [id number] [place] [address] [place] Tez sp DNA KORY+probe Ql (Vag fld) Not detected Normal Not detected [facility] Comment on above: Order Comment: Speci men Type: SWABOrdering Facility: [facility] Address: [address] [place] [address] Result Comment: The Tez species group target includes C. albicans, C. tropicalis, C. parapsilosis, and C. dubliniensis. Performed By: #### B VAMP, CVTV ####[facility] LABCLIA [id number] [place] [address] [place] T. vaginalis DNA KORY+probe Ql (Unsp spec) Not detected Normal Not detected [facility] Comment on above: Order Comment: Speci men Type: SWABOrdering Facility: [facility] Address: [address] [place] [address] Performed By: #### B VAMP, CVTV ####[facility] LABCLIA [id number] [place] [address] [place] CNOVon 07-29-2024 CNOV Office Visit (OBGYWM ) JOHANNA CARVER ([id number]) 1985 F Date Time Provider Department 07/29/24 1:15 PM LENA OLGUIN OBGYWM During your visit today, we recorded the following information about you: Blood pressure Last Period 116/64 07/25/24 Lena Olguin, SCREEN EXAMINER.ENGINE TEST CELL TECHNICIAN 07/29/2024 2:11 PM Signed Patient declined paperhanger. Johanna Carver is a 39 year old female who presents for problem visit vaginal discharge for 2 week(s). HPI: Patient states that she has noticed some increase in vaginal discharge and some irritation. She has not been recently sexually active, but states symptoms feel like the same as when she had positive mycoplasma. Patient is also still dealing with oral/tongue issues. The tongue is still white in color and she complains of a burning sensation when she eats. She does have an appointment with ENT coming up for this issue. Patient also states that she has a rash on her left upper shoulder. She did see a local psychometrist that performed a biopsy and they gave her a steroid cream to use. Patient states that the rash is spreading and did not resolve in any way. She would like a consult to dermatology for second opinion. OB History Gravida2 Para0 Term0 Preterm0 AB0 Living2 SAB0 IAB0 Ectopic0 Multiple0 Live Births0 Bed Manager History LMP: 07/25/2024 (Within Weeks), Having periods Age at Menarche: Age at First : Age at Menopause: Bed Manager History Comments: Sexual Activity: Not Currently; Male Contraception: Condom PAST MEDICAL HISTORY Diagnosis Date ADHD (attention deficit hyperactivity disorder) Adjustment disorder with depressed mood was previously on Paxil/effexor, self ky'ed for weight gain. Anemia Concussion 2016 Depressive disorder, not elsewhere classified Environmental and seasonal allergies Eosinophilic esophagitis 2016 Esophageal dysmotility 02/27/2018 Foot fracture, left 2016 TBI (traumatic brain injury) ([facility]) Unspecified symptom associated with female genital organs Pain in the vulvar area PAST SURGICAL HISTORY Procedure Laterality Date CORRECT BUNION,SIMPLE 2005 right EGD 1 or 2 times yearly REDUCTION OF LARGE BREAST 10/05/2008 Bilateral, uncomplciated RPR 1ST INGUN HRNA FULL TERM INFT <6 MO RDC FAMILY HISTORY Problem Relation Age of Onset Psychiatry Mother post depression No Known Problems Father No Known Problems Sister No Known Problems Sister Ischemic Heart Disease Maternal Grandfather Heart Paternal Grandmother Pacemaker Cancer Paternal Grandmother Ischemic Heart Disease Paternal Grandfather Social History Tobacco Use Smoking status: Former Current packs/day: 0.00 Types: Cigarettes Quit date: 12/25/2016 Years since quittin.5 Smokeless tobacco: Never Tobacco comments: A few cigarettes per week. Vaping Use Vaping status: Never Used Substance Use Topics Alcohol use: Not Currently Comment: seldom Drug use: Never Current Outpatient Medications Medication Sig amphetamine-dextroamphetamin e XR (ADDERALL XR) 15 mg capsule Take 1 capsule by mouth once daily for 30 days. tiZANidine (ZANAFLEX) 4 mg tablet 1 tab qhs prn fluticasone (FLONASE) 50 mcg/actuation nasal spray Use 2 sprays in each nostril once daily. Rinse mouth after use. Clindamycin Phosphate (CLEOCIN T) 1 % lotion Apply once a day as a spot treatment to the face ibuprofen (MOTRIN ORAL) Take 400 mg by mouth as needed. nystatin (MYCOSTATIN) 100,000 unit/mL suspension Take 5 mL by mouth four times daily. 1tsp swish in mouth for several minutes, then swallow (or expectorate) 4 times daily until gone. adapalene-benzoyl peroxide 0.3-2.5 % Apply to affected area three times a week. No current facility-administered medications for this visit. Allergies As of Date: 07/29/2024 Allergen Noted Reaction PENICILLINS 10/03/2005 Hives SULFA (SULFONAMIDE ANTIBIOTICS) 05/31/2019 Swelling Fully Assessed 07/29/2024 REVIEW OF SYSTEMS Bladder: No dysuria, gross hematuria, urinary frequency, urinary urgency, or incontinence. Expanded ROS: N/A Allergies and current medication updated:Yes SENSITIVE EXAM: The sensitive examination was discussed with the Patient or Patient's Authorized Claims Agent Right Of Way. As applicable, any other physician, advance practice provider, medical student, or other health professional student that will be observing or involved in the sensitive examination for educational or training purposes was discussed with the Patient or Authorized Claims Agent Right Of Way. The Patient or Authorized Claims Agent Right Of Way has agreed to proceed with the sensitive examination. (Sensitive examination includes inspection and/or palpation of the breasts, pelvis, prostate and anorectal regions). EXAM: BP 116/64 Wt 0 lb (0.0kg) LMP 07/25/2024 GENERAL: pleasant, female in no apparent distress HEENT: Normocephalic, atraumatic, mu (more content not included)... Normal [facility] CNTHERAPYon 07-29-2024 CNTHERAPY OT/PT/Speech Visit ( PTWS) JOHANNA CARVER ([id number]) 1985 F Date Time Provider Department 07/29/24 2:15 PM DARIUSZ DUNCAN PTWS Date Time Provider Department [place] 07/29/2024 2:15 PM [id number], COLIN PTWS Adam Joel Reason for Visit: Physical Therapy [503] Primary Visit Diagnosis:Chronic left-sided low back pain, unspecified whether sciatica present [M54.50, G89.29] Allergies As of Date: 07/29/2024 Noted Allergy Reaction PENICILLINS 10/03/2005 4 - Hives SULFA (SULFONAMIDE ANTIBIOTICS) 05/31/2019 7 - Swelling Comments: Swelling of the tongue Date Reviewed: 07/29/2024 Reviewed by: Iona Person LPN - Fully Assessed Prescriptions as of 07/29/2024 - amphetamine-dextroamphetamin e XR (ADDERALL XR) 15 mg capsule Take 1 capsule by mouth once daily for 30 days. - nystatin (MYCOSTATIN) 100,000 unit/mL suspension Take 5 mL by mouth four times daily. 1tsp swish in mouth for several minutes, then swallow (or expectorate) 4 times daily until gone. - tiZANidine (ZANAFLEX) 4 mg tablet 1 tab qhs prn - fluticasone (FLONASE) 50 mcg/actuation nasal spray Use 2 sprays in each nostril once daily. Rinse mouth after use. - Clindamycin Phosphate (CLEOCIN T) 1 % lotion Apply once a day as a spot treatment to the face - adapalene-benzoyl peroxide 0.3-2.5 % Apply to affected area three times a week. - ibuprofen (MOTRIN ORAL) Take 400 mg by mouth as needed. [facility] UROGENITAL UREAPLASMA AND MY COPLASMA SPECIES BY PCR, FOR GENITAL, RECTAL, URINE SAMPLESon 07-29-2024 M GENITALIUM PCR Not detected Normal [facility] [place] Comment on above: Order Comment: Speci men Type: SWABOrdering Facility: [facility] Address: [address] [place] [address] Result Comment: INTE RPRETIVE INFORMATION: Urogenital Ureaplasma and Mycoplasma Species by PCR A negative result does not rule out the presence of PCR inhibitors in the patient specimen or test-specific nucleic acid in concentrations below the level of detection by this test. This test was developed and its performance characteristics determined by [facility]. It has not been cleared or approved by the US Food and Drug Administration. This test was performed in a CLIA certified laboratory and is intended for clinical purposes. Performed By: [facility] [address] [place] [address] Or Rn: Billy Pratt MD, PhD [place] Number: [id number] Performed By: #### U RMPCR ####[facility] SpareTimeCLIA [id number] [place] [id number] MYCOPLAS HOMINIS PCR Not detected Normal [facility] Comment on above: Order Comment: Speci men Type: SWABOrdering Facility: [facility] Address: [address] [place] [address] Performed By: #### U RMPCR ####[facility] SpareTimeCLIA [id number] [place] [address] UR PARVUM PCR Not detected [facility] Comment on above: Order Comment: Speci men Type: SWABOrdering Facility: [facility] Address: [address] [place] [address] Performed By: #### U RMPCR ####[facility] [id number] [place] [address] UR UREALYTICUM PCR Not detected Normal [facility] Comment on above: Order Comment: Speci men Type: SWABOrdering Facility: [facility] Address: [address] [place] [address] Performed By: #### U RMPCR ####[facility] [id number] [place] [address] UR/MYCO SOURCE Genital [facility] Comment on above: Order Comment: Speci men Type: SWABOrdering Facility: [facility] Address: [address] [place] [address] Performed By: #### U RMPCR ####[facility] [id number] [place] [address] CNTHERAPYon 07-22-2024 CNTHERAPY OT/PT/Speech Visit ( PTWS) JOHANNA CARVER ([id number]) 1985 F Date Time Provider Department 07/22/24 11:30 AM DARIUSZ DUNCAN PTWS Date Time Provider Department Center 07/22/2024 11:30 AM [id number], COLIN PTWS Adam Joel Reason for Visit: Physical Therapy [503] Primary Visit Diagnosis:Chronic left-sided low back pain, unspecified whether sciatica present [M54.50, G89.29] Allergies As of Date: 07/22/2024 Noted Allergy Reaction PENICILLINS 10/03/2005 4 - Hives SULFA (SULFONAMIDE ANTIBIOTICS) 05/31/2019 7 - Swelling Comments: Swelling of the tongue Date Reviewed: 07/08/2024 Reviewed by: Mag Neves RPFT - Fully Assessed Prescriptions as of 07/22/2024 - amphetamine-dextroamphetamin e XR (ADDERALL XR) 15 mg capsule Take 1 capsule by mouth once daily for 90 days. - tiZANidine (ZANAFLEX) 4 mg tablet 1 tab qhs prn - fluticasone (FLONASE) 50 mcg/actuation nasal spray Use 2 sprays in each nostril once daily. Rinse mouth after use. - baclofen 10 mg tablet 1 tab bid prn for spasms - Clindamycin Phosphate (CLEOCIN T) 1 % lotion Apply once a day as a spot treatment to the face - adapalene-benzoyl peroxide 0.3-2.5 % Apply to affected area three times a week. - ibuprofen (MOTRIN ORAL) Take 400 mg by mouth as needed. Payroll Clerk: Therapy (PT/OT/Speech/Resp) ID: [id number] 07/22/2024 12:10 PM Author: DARIUSZ DUNCAN Signed by DARIUSZ DUNCAN PT on 07/22/2024 at 12:10 PM Document text: Program_ID:[id number] Access Code: [email or web address] URL: [email or web address] Date: 07-22-2024 Prepared By: Dariusz Duncan Program Notes Exercises - Sidelying Hip Abduction - 2 x daily - 7 x weekly - 2-3 sets - 10 reps - Seated Hip External Rotation with Resistance - 2 x daily - 7 x weekly - 2-3 sets - 10 reps - Self Release - 1 x daily - 7 x weekly - sets - reps - Isometric Glute Med at Wall - 2 x daily - 7 x weekly - 2 sets - 10 reps - Sidelying Reverse Clamshell with Resistance - 2 x daily - 7 x weekly - 2 sets - 10 reps - Side Stepping with Resistance at Ankles - 2 x daily - 7 x weekly - sets - 3-5 reps Normal [facility] THERAPY NTon 07-22-2024 THERAPY NT HNO ID: [id number] Author: DARIUSZ DUNCAN PT Service: ? Author Type: Physical Therapist Type: Therapy (PT/OT/Speech/Resp) Filed: 07/22/2024 12:10 Note Text: Program_ID:[id number] Access Code: [email or web address] URL: [email or web address] Date: 07-22-2024 Prepared By: Dariusz Duncan Program Notes Exercises - Sidelying Hip Abduction - 2 x daily - 7 x weekly - 2-3 sets - 10 reps - Seated Hip External Rotation with Resistance - 2 x daily - 7 x weekly - 2-3 sets - 10 reps - Self Release - 1 x daily - 7 x weekly - sets - reps - Isometric Glute Med at Wall - 2 x daily - 7 x weekly - 2 sets - 10 reps - Sidelying Reverse Clamshell with Resistance - 2 x daily - 7 x weekly - 2 sets - 10 reps - Side Stepping with Resistance at Ankles - 2 x daily - 7 x weekly - sets - 3-5 reps [facility] CNTHERAPYon 07-13-2024 CNTHERAPY OT/PT/Speech Visit ( PTWS) JOHANNA CARVER ([id number]) 1985 F Date Time Provider Department 07/13/24 7:45 AM DARIUSZ DUNCAN PTWS Date Time Provider Department Center 07/13/2024 7:45 AM [id number], COLIN PTWS Adam Joel Reason for Visit: Physical Therapy [503] Primary Visit Diagnosis:Chronic left-sided low back pain, unspecified whether sciatica present [M54.50, G89.29] Allergies As of Date: 07/13/2024 Noted Allergy Reaction PENICILLINS 10/03/2005 4 - Hives SULFA (SULFONAMIDE ANTIBIOTICS) 05/31/2019 7 - Swelling Comments: Swelling of the tongue Date Reviewed: 07/08/2024 Reviewed by: Mag Neves RPFT - Fully Assessed Prescriptions as of 07/13/2024 - amphetamine-dextroamphetamin e XR (ADDERALL XR) 15 mg capsule Take 1 capsule by mouth once daily for 90 days. - tiZANidine (ZANAFLEX) 4 mg tablet 1 tab qhs prn - fluticasone (FLONASE) 50 mcg/actuation nasal spray Use 2 sprays in each nostril once daily. Rinse mouth after use. - baclofen 10 mg tablet 1 tab bid prn for spasms - Clindamycin Phosphate (CLEOCIN T) 1 % lotion Apply once a day as a spot treatment to the face - adapalene-benzoyl peroxide 0.3-2.5 % Apply to affected area three times a week. - ibuprofen (MOTRIN ORAL) Take 400 mg by mouth as needed. Payroll Clerk: Addendum Therapy (PT/OT/Speech/Resp) ID: [id number] 07/13/2024 8:18 AM Author: DARIUSZ DUNCAN Signed by DARIUSZ DUNCAN PT on 07/13/2024 at 8:18 AM * * * This document replaces document [id number] * * * Document text: Program_ID:[id number] Access Code: [email or web address] URL: [email or web address] Date: 07-13-2024 Prepared By: Dariusz Duncan Program Notes Exercises - Sidelying Hip Abduction - 2 x daily - 7 x weekly - 2-3 sets - 10 reps - Seated Hip External Rotation with Resistance - 2 x daily - 7 x weekly - 2-3 sets - 10 reps - Sidelying Reverse Clamshell - 2 x daily - 7 x weekly - 2 sets - 10 reps - Self Release - 1 x daily - 7 x weekly - sets - reps - Isometric Glute Med at Wall - 2 x daily - 7 x weekly - 2 sets - 10 reps [facility] THERAPY NTon 07-13-2024 THERAPY NT HNO ID: [id number] Author: DARIUSZ DUNCAN PT Service: ? Author Type: Physical Therapist Type: Therapy (PT/OT/Speech/Resp) Filed: 07/13/2024 08:18 Note Text: Program_ID:[id number] Access Code: [email or web address] URL: [email or web address] Date: 07-13-2024 Prepared By: Dariusz Duncan Program Notes Exercises - Sidelying Hip Abduction - 2 x daily - 7 x weekly - 2-3 sets - 10 reps - Seated Hip External Rotation with Resistance - 2 x daily - 7 x weekly - 2-3 sets - 10 reps - Sidelying Reverse Clamshell - 2 x daily - 7 x weekly - 2 sets - 10 reps - Self Release - 1 x daily - 7 x weekly - sets - reps - Isometric Glute Med at Wall - 2 x daily - 7 x weekly - 2 sets - 10 reps [facility] LUNG VOLUMESon 07-08-2024 ERV BOX (L) 1.53 L [facility] ERV PREDICTED (L) 1.18 L/S [facility] FEF25% PRE (L/S) 5.56 L/S [facility] NVJ25-03% LLN (L/S) 1.59 L/S [facility] BZX04-02% PRE (L/S) 3.62 L/S [facility] GDD73-70% PREDICTED (L/S) 2.91 L/S [facility] FEF75% LLN (L/S) 0.42 L/S [facility] FEF75% PRE (L/S0 2.05 L/S [facility] FEF75% PREDICTED (L/S) 0.97 L/S [facility] FEF75% ULN (L/S) 1.95 L/S [facility] FET PRE (S) 3.31 S [facility] FEV1 LLN (L) 2.24 L [facility] FEV1 PRE (L) 3.22 L [facility] FEV1 PREDICTED (L) 2.95 L [facility] FEV1 ULN (L) 3.63 L [facility] FEV1/FVC LLN (%) 72 % [facility] FEV1/FVC PRE (%) 86 % [facility] FEV1/FVC PREDICTED (%) 83 % [facility] FRC Box (L) 3.18 L [facility] FVC LLN (L) 2.71 L [facility] FVC PRE (L) 3.76 L [facility] FVC PREDICTED (L) 3.54 L [facility] FVC ULN (L) 4.39 L [facility] IC BOX (L) 2.21 L [facility] IC PREDICTED (L) 2.36 L/S [facility] PEF LLN (L/S) 4.71 L/S [facility] PEF PRE (L/S) 5.8 L/S [facility] PEF ULN (L/S) 8.78 L/S [facility] RV Box (L) 1.58 L [facility] RV Box PREDICTED (L) 1.57 L [facility] RV/TLC Box (%) 30 % [facility] RV/TLC Box PREDICTED (%) 30 % [facility] SVC LLN (L) 2.71 L/S [facility] SVC PREDICTED (L) 3.54 L/S [facility] SVC ULN (L) 4.39 L/S [facility] TLC Box (L) 5.31 L [facility] TLC Box PREDICTED (L) 5.13 L [facility] VC (L) BOX 3.74 L [facility] LUNG VOLUMES [facility] [address] [place] [address] Test Date: 2024-07-08 Pat Name: OJHANNA CARVER Department: Room: Gender: Female Director Of Special Events: : 1985 Requested By: Order Number: [id number] Reading MD: Mile Castro MD Interpretive Statements Acceptability and/or repeatability criteria not met despite patient's best efforts. Early termination of expiration and no valid expiratory plateau per ATS/ERS guidelines. Lung Volumes : Suboptimal results were obtained. Results should be interpreted with caution. Best test reported despite difficult testing session. Bronchodilator not given d/t difficulties with pre-spirometry. IMPRESSION: Spirometry is normal. Lung volumes are normal. Electronically Signed On 07-08-2024 15:47:00 EDT by Mile Castro MD ID: [id number] Name: JOHANNA CARVER Race: Black or Ht: 64.50 in Wt: 130.00 lbs Age: 39 Gender: Female : 1985 Dx: Shortness of breath Smoking Hx: Non-smoker Doctor: GABY SOLIS Test Date: 07/08/2024 Site: Tech: Mag Neves PRE-BRONCH POST-BRONCH Zoila LLN Pred ULN %Pred ZScore Zoila %Pred %Chg ZScore SPIROMETRY FVC 3.76 2.71 3.54 4.39 106 0.43 FEV1 3.22 2.24 2.95 3.63 109 0.65 FEV1/FVC 0.86 0.72 0.83 0.92 102 0.41 FEFMax 5.80 4.71 6.75 8.78 85 -0.76 FEF50 4.05 2.30 3.91 5.52 103 0.15 FIF50 1.16 FEF50/FIF50 3.48 90-100 FIVC 0.62 ADW43-63 3.62 1.59 2.91 4.55 124 0.75 ExpiredTime 3.31 TimeToFEFMax 0.11 PRETTY 0.14 VolExtrap% 4 LUNG VOLUMES FRC(Pleth) 3.18 1.97 2.83 3.69 112 0.67 ERV 1.53 1.18 129 RV(Pleth) 1.58 0.95 1.57 2.20 100 0.02 SVC 3.74 2.71 3.54 4.39 105 0.38 IC 2.21 2.36 93 TLC(Pleth) 5.31 4.25 5.13 6.01 103 0.33 RV/TLC(Pleth) 30 21 30 39 98 -0.07 Comments: Acceptability and/or repeatability criteria not met despite patient's best efforts. Early termination of expiration and no valid expiratory plateau per ATS/ERS guidelines. Lung Volumes : Suboptimal results were obtained. Results should be interpreted with caution. Best test reported despite difficult testing session. Bronchodilator not given d/t difficulties with pre-spirometry. FVC_PRE (L) : 3.76 L FVC_PRED (L) : 3.54 L FVC_LLN (L) : 2.71 L FVC_ULN (L) : 4.39 L FEV1_PRE (L) : 3.22 L FEV1_PRED (L) : 2.95 L FEV1_LLN (L) : 2.24 L FEV1_ULN (L) : 3.63 L FEV1/FVC_PRE (%) : 86 % FEV1/FVC_PRED (%) : 83 % FEV1/FVC_LLN (%) : 72 % VID84_MQM (L/S) : 5.56 L/S XLH19_LMQ (L/S) : 2.05 L/S LPG28_YIFW (L/S) : 0.97 L/S ZUY27_HXS (L/S) : 0.42 L/S EVS91_CLQ (L/S) : 1.95 L/S ZOQ63-23%_PRE (L/S) : 3.62 L/S IBV52-98%_PRED (L/S) : 2.91 L/S ACS91-92%_LLN (L/S) : 1.59 L/S PEF_PRE (L/S) : 5.80 L/S PEFMAX_LLN (L/S) : 4.71 L/S PEFMAX_ULN (L/S) : 8.78 L/S VC BOX (L) : 3.74 L SVC_PRED (L) : 3.54 L/S SVC_LLN (L) : 2.71 L/S SVC_ULN (L/S) : 4.39 L/S IC BOX (L) : 2.21 L IC_PRED (L) : 2.36 L/S ERV BOX (L) : 1.53 L ERV_PREDICTED (L) : 1.18 L/S FET_PRE (S) : 3.31 S FRC BOX (L) : 3.18 L RV BOX (L) : 1.58 L RV_PLETH_PRED (L) : 1.57 L TLC BOX (L) : 5.31 L TLC_PLETH_PRED (L) : 5.13 L RV/TLC BOX (%) : 30 % RV_TLC_PLETH_PRED (%) : 30 % [facility] No Panel Informationon 07-08 Adam Cuenca [facility] [address] [place] [address] Test Date: 2024-07-08 Pat Name: JOHANNA CARVER Department: Room: Gender: Female Director Of Special Events: : 1985 Requested By: Order Number: [id number] Reading MD: Mile Castro MD Interpretive Statements Acceptability and/or repeatability criteria not met despite patient's best efforts. Early termination of expiration and no valid expiratory plateau per ATS/ERS guidelines. Lung Volumes : Suboptimal results were obtained. Results should be interpreted with caution. Best test reported despite difficult testing session. Bronchodilator not given d/t difficulties with pre-spirometry. IMPRESSION: Spirometry is normal. Lung volumes are normal. Electronically Signed On 07-08-2024 15:47:00 EDT by Mile Castro MD ID: [id number] Name: JOHANNA CARVER Race: Black or Ht: 64.50 in Wt: 130.00 lbs Age: 39 Gender: Female : 1985 Dx: Shortness of breath Smoking Hx: Non-smoker Doctor: GABY SOLIS Test Date: 07/08/2024 Site: [facility] Tech: Mag Neves PRE-BRONCH POST-BRONCH Zoila LLN Pred ULN %Pred ZScore Zoila %Pred %Chg ZScore SPIROMETRY FVC 3.76 2.71 3.54 4.39 106 0.43 FEV1 3.22 2.24 2.95 3.63 109 0.65 FEV1/FVC 0.86 0.72 0.83 0.92 102 0.41 FEFMax 5.80 4.71 6.75 8.78 85 -0.76 FEF50 4.05 2.30 3.91 5.52 103 0.15 FIF50 1.16 FEF50/FIF50 3.48 90-100 FIVC 0.62 KRB78-31 3.62 1.59 2.91 4.55 124 0.75 ExpiredTime 3.31 TimeToFEFMax 0.11 PRETTY 0.14 VolExtrap% 4 LUNG VOLUMES FRC(Pleth) 3.18 1.97 2.83 3.69 112 0.67 ERV 1.53 1.18 129 RV(Pleth) 1.58 0.95 1.57 2.20 100 0.02 SVC 3.74 2.71 3.54 4.39 105 0.38 IC 2.21 2.36 93 TLC(Pleth) 5.31 4.25 5.13 6.01 103 0.33 RV/TLC(Pleth) 30 21 30 39 98 -0.07 Comments: Acceptability and/or repeatability criteria not met despite patient's best efforts. Early termination of expiration and no valid expiratory plateau per ATS/ERS guidelines. Lung Volumes : Suboptimal results were obtained. Results should be interpreted with caution. Best test reported despite difficult testing session. Bronchodilator not given d/t difficulties with pre-spirometry. PULMONARY FUNCTION LAB [facility] SPIROMETRY - BASELINE AND PO ST DILATORon 07-08-2024 SPIROMETRY - BASELINE AND POST DILATOR [facility] [address] [address] Test Date: 2024-07-08 Pat Name: JOHANNA CARVER Department: Room: Gender: Female Director Of Special Events: : 1985 Requested By: Order Number: [id number] Reading MD: Mile Castro MD Interpretive Statements Acceptability and/or repeatability criteria not met despite patient's best efforts. Early termination of expiration and no valid expiratory plateau per ATS/ERS guidelines. Lung Volumes : Suboptimal results were obtained. Results should be interpreted with caution. Best test reported despite difficult testing session. Bronchodilator not given d/t difficulties with pre-spirometry. IMPRESSION: Spirometry is normal. Lung volumes are normal. Electronically Signed On 07-08-2024 15:47:00 EDT by Mile Castro MD ID: [id number] Name: JOHANNA CARVER Race: Black or Ht: 64.50 in Wt: 130.00 lbs Age: 39 Gender: Female : 1985 Dx: Shortness of breath Smoking Hx: Non-smoker Doctor: GABY SOLIS Test Date: 07/08/2024 Site: Tech: Mag Neves PRE-BRONCH POST-BRONCH Zoila LLN Pred ULN %Pred ZScore Zoila %Pred %Chg ZScore SPIROMETRY FVC 3.76 2.71 3.54 4.39 106 0.43 FEV1 3.22 2.24 2.95 3.63 109 0.65 FEV1/FVC 0.86 0.72 0.83 0.92 102 0.41 FEFMax 5.80 4.71 6.75 8.78 85 -0.76 FEF50 4.05 2.30 3.91 5.52 103 0.15 FIF50 1.16 FEF50/FIF50 3.48 90-100 FIVC 0.62 FJC00-36 3.62 1.59 2.91 4.55 124 0.75 ExpiredTime 3.31 TimeToFEFMax 0.11 PRETTY 0.14 VolExtrap% 4 LUNG VOLUMES FRC(Pleth) 3.18 1.97 2.83 3.69 112 0.67 ERV 1.53 1.18 129 RV(Pleth) 1.58 0.95 1.57 2.20 100 0.02 SVC 3.74 2.71 3.54 4.39 105 0.38 IC 2.21 2.36 93 TLC(Pleth) 5.31 4.25 5.13 6.01 103 0.33 RV/TLC(Pleth) 30 21 30 39 98 -0.07 Comments: Acceptability and/or repeatability criteria not met despite patient's best efforts. Early termination of expiration and no valid expiratory plateau per ATS/ERS guidelines. Lung Volumes : Suboptimal results were obtained. Results should be interpreted with caution. Best test reported despite difficult testing session. Bronchodilator not given d/t difficulties with pre-spirometry. [facility] [id number] 07-06-2024 [id number] HNO ID: [id number] Author: DARIUSZ DUNCAN, PT Service: ? Author Type: Physical Therapist Type: [id number] Filed: 07/06/2024 13:16 Note Text: [facility] Physical Therapy Plan of Care Certification Patient Name: Johanna Carver : 1985 [facility] #: [id number] Date: 07/06/2024 To: Octavio Rothman MD From Therapist: Dariusz Duncan PT RE: Patient Certification/ Recertification Your review, approval and electronic signature are required in order to comply with Payor: [facility] [place] [facility] [employer] / Plan: [facility] [facility] [employer] / Product Type: Medicaid / regulations. The identified Physical Therapy PLAN OF CARE for the patient is as follows: M54.50, G89.29 Chronic left-sided low back pain, unspecified whether sciatica present (primary encounter diagnosis) PLAN OF CARE: Assessment: Johanna Carver presents with chief complaint of L Hip Pain that interferes with recreational activities, heavy exertion, working, bed mobility, twisting . The patient presents with impairments in ADL's, flexibility, independence in exercise, overall function, patient reported outcome measures, range of motion, strength, symptom management, and tissue tenderness. PROMIS? (Patient-Reported Outcomes Measurement Information System) scores were reviewed and identified as a rehabilitation concern. Prognosis for therapy is Good due to: current objective clinical presentation, good overall health status, positive past response to therapy . The patient will benefit from skilled therapy services to meet the goals established for this plan of care as noted below. Classification Pain Mechanism Classification: Nociceptive Low Back Pain Classification: Movement Control Goals for Episode of Care: established 07/06/24 Patient reported outcome of pain Interference will decrease T -score by a minimum of 5 points. [place] in home exercise program. Patient will increase flexibility of L Hip Internal Rotators. Increased strength of Hip ABD (bilat) and L ER to 5/5 mmt for improved performance of functional activities. Restore pain-free lumbar ROM to WNL to allow for improved functional mobility. Restore pain-free L Hip ER A/PROM. Decrease soft tissue tenderness grossly for improvements in pain and improved QOL. Patient Goals: Alleviate Pain. Time Frame for Goals and Treatment : 08/17/24 Planned Interventions, Frequency, and Duration: Current Frequency: 1x/week Duration: 5 weeks Total Number of Visits Planned: 5 Planned Treatment Interventions: Therapeutic exercise (12762), Neuromuscular re-education (49858), Manual therapy (62734), Therapeutic activities (51427), Self-correction management (26450), Patient/Family/Caregiver Education PLAN FOR NEXT VISIT: Review, correct and progress HEP as tolerated. Manual PRN. Patient demonstrates good understanding of plan of care and treatment. The above goals and plan of care were discussed and agreed upon by patient/family. For further details regarding this patient refer to the Physical Therapy electronically documented visit dated 07/06/2024. Provider Attestation I have reviewed the treatment plan for Johanna Carver [facility]# [id number] for the period of 07/06/24 -- 08/13/24, established on 07/06/2024. Signature certifies the need for therapy services. [facility] CNTHERAPYon 07-06-2024 CNTHERAPY OT/PT/Speech Visit ( PTWS) WENJOHANNA ([id number]) 1985 F Date Time Provider Department 07/06/24 10:45 AM DARIUSZ DUNCAN PTWS Date Time Provider Department Center 07/06/2024 10:45 AM [id number], COLIN PTWS Aadm Joel Reason for Visit: PT Eval [747] Primary Visit Diagnosis:Chronic left-sided low back pain, unspecified whether sciatica present [M54.50, G89.29] Allergies As of Date: 07/06/2024 Noted Allergy Reaction PENICILLINS 10/03/2005 4 - Hives SULFA (SULFONAMIDE ANTIBIOTICS) 05/31/2019 7 - Swelling Comments: Swelling of the tongue Date Reviewed: 06/21/2024 Reviewed by: Mile Harris MA - Fully Assessed Prescriptions as of 07/06/2024 - amphetamine-dextroamphetamin e XR (ADDERALL XR) 15 mg capsule Take 1 capsule by mouth once daily for 90 days. - tiZANidine (ZANAFLEX) 4 mg tablet 1 tab qhs prn - fluticasone (FLONASE) 50 mcg/actuation nasal spray Use 2 sprays in each nostril once daily. Rinse mouth after use. - baclofen 10 mg tablet 1 tab bid prn for spasms - Clindamycin Phosphate (CLEOCIN T) 1 % lotion Apply once a day as a spot treatment to the face - adapalene-benzoyl peroxide 0.3-2.5 % Apply to affected area three times a week. - ibuprofen (MOTRIN ORAL) Take 400 mg by mouth as needed. Payroll Clerk: Therapy (PT/OT/Speech/Resp) ID: [id number] 07/06/2024 11:25 AM Author: DARIUSZ DUNCAN Signed by DARIUSZ DUNCAN PT on 07/06/2024 at 11:25 AM Document text: Program_ID:[id number] Access Code: [email or web address] URL: [email or web address] Date: 07-06-2024 Prepared By: Dariusz Duncan Program Notes Exercises - Sidelying Hip Abduction - 2 x daily - 7 x weekly - 2-3 sets - 10 reps - Seated Hip External Rotation with Resistance - 2 x daily - 7 x weekly - 2-3 sets - 10 reps - Isometric Glute Med at Wall - 2 x daily - 7 x weekly - 2 sets - 10 reps - Sidelying Reverse Clamshell - 2 x daily - 7 x weekly - 2 sets - 10 reps - Self Release - 1 x daily - 7 x weekly - sets - reps Normal [facility] THERAPY NTon 07-06-2024 THERAPY NT HNO ID: [id number] Author: DARIUSZ DUNCAN, PT Service: ? Author Type: Physical Therapist Type: Therapy (PT/OT/Speech/Resp) Filed: 07/06/2024 11:25 Note Text: Program_ID:[id number] Access Code: [email or web address] URL: [email or web address] Date: 07-06-2024 Prepared By: Dariusz Duncan Program Notes Exercises - Sidelying Hip Abduction - 2 x daily - 7 x weekly - 2-3 sets - 10 reps - Seated Hip External Rotation with Resistance - 2 x daily - 7 x weekly - 2-3 sets - 10 reps - Isometric Glute Med at Wall - 2 x daily - 7 x weekly - 2 sets - 10 reps - Sidelying Reverse Clamshell - 2 x daily - 7 x weekly - 2 sets - 10 reps - Self Release - 1 x daily - 7 x weekly - sets - reps Normal [facility] 25(OH)D3 SerPl-mCncon 2024 25-hydroxyvitamin D3 [Mass/Vol] 41.7 ng/mL Normal 31.0-80.0 [facility] Comment on above: Order Comment: Speci men Type: BLOOD SPECIMENOrdering Facility: [facility] Address: [address] [place] [address] Performed By: #### 1 989-3 ####[facility] LABCLIA [id number] [address] CNOVon 06-21-2024 CNOV Office Visit (INTMWS ) JOHANNA CARVER ([id number]) 1985 F Date Time Provider Department 06/21/24 2:00 PM GABY SOLIS INTMWS During your visit today, we recorded the following information about you: Pulse Respiration Blood pressure 102/minute 12/minute 112/68 Gaby Solis MD 06/21/2024 2:56 PM Signed Reason for Visit ADHD SILVIA Spencer is a 39-year-old female, with a history of ADHD and eosinophilic esophagitis, presenting for a follow-up and reports of fatigue, glossodynia, and dyspnea. Johanna reports persistent fatigue, noting a consistent onset of drowsiness at the same time each day, despite adherence to her current medication regimen. 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 She has been on Adderall 15 mg daily for the past 3-6 months, previously on 10 mg for a year, prescribed by Dr. Kovacs. She reports that Adderall has been effective in improving focus, reducing anxiety, and enhancing her ability to manage work and childcare responsibilities. She denies any side effects from Adderall. She also reports glossodynia with a white coating on her tongue since March. She has been treated with nystatin and Diflucan without improvement. The pain is exacerbated by eating and drinking, regardless of the food or beverage type. She denies any prior issues with her tongue. Additionally, she reports episodes of dyspnea characterized by the need to take deeper breaths, primarily occurring while sitting and not associated with physical activity. She denies any history of asthma, chest pain, or leg swelling. She has a history of eosinophilic esophagitis and has not undergone an endoscopy recently. She was previously on pantoprazole but discontinued it due to joint pain. She follows a gluten-free and dairy-free diet to manage her esophagitis symptoms and reports that her eosinophil count has been stable. She also mentions easy bruising and a recent episode of unilateral leg pain, which has since improved. She denies any history of blood clots. Social History Tobacco Use Smoking status: Former Current packs/day: 0.00 Types: Cigarettes Quit date: 12/25/2016 Years since quittin.4 Smokeless tobacco: Never Tobacco comments: A few cigarettes per week. Vaping Use Vaping status: Never Used Substance Use Topics Alcohol use: Not Currently Comment: seldom Drug use: Never Past medical history, appointments, medications, allergies reviewed. Pertinent Lab/Diagnostic Studies are reviewed and discussed today Current Outpatient Medications: tiZANidine (ZANAFLEX) 4 mg tablet fluticasone (FLONASE) 50 mcg/actuation nasal spray Clindamycin Phosphate (CLEOCIN T) 1 % lotion adapalene-benzoyl peroxide 0.3-2.5 % ibuprofen (MOTRIN ORAL) amphetamine-dextroamphetamin e XR (ADDERALL XR) 15 mg capsule baclofen 10 mg tablet Health Maintenance There are no preventive care reminders to display for this patient.@ Review Of Systems Constitutional: (+) fatigue, (+) sleep disturbance Ears/Nose/Mouth/Throat: (+) tongue pain Cardiovascular: (-) chest pain Respiratory: (+) shortness of breath Musculoskeletal: (+) leg pain (unspecified side) Hematologic/Lymphatic: (+) easy bruising Physical Exam BP 112/68 Pulse 102 Resp 12 LMP 03/27/2024 (Within Weeks) SpO2 100% GENERAL: NAD, alert and oriented. SKIN: Unremarkable, no rash or skin lesions. HEAD: Normocephalic. EYES: PERRLA, EOMI, conjunctiva clear. Oropharynx: The tongue looks normal to me. NECK: Supple, no lymphadenopathy, normal thyroid, no carotid bruits. LUNGS: Clear to auscultation bilaterally, no wheezes/rhonchi/rales. HEART: Regular rate and rhythm, no murmurs. No ectopy. EXTREMITIES: Normal, no deformities, no skin discoloration, no edema. NEURO: Awake, alert and oriented x3, cranial nerves II-XII grossly intact, normal gait, no involuntary motions. Labs: - Thyroid function test: Normal - Vitamin B12: Low - ESR: 2 - CRP: 0.3 or less - Hemoglobin: 12 - WBC: Not elevated - GFR: 100 - Glucose: Normal Assessment and Plan 1. Attention deficit hyperactivity disorder (ADHD), predominantly inattentive type (F90.0) Well-controlled on Adderall 15 mg daily, which has improved focus and reduced agitation. - Refilled Adderall 15 mg for 90 days. - Follow-up in 3 months. 2. Vitamin D deficiency (E55.9) Vitamin D levels not previously checked. - Ordered vitamin D level. 3. Iron deficiency (E61.1) Diet low in meat; potential contributor to fatigue. - Ordered iron studies. - Recommended cyva-lqn-uqsbiss iron syrup for better absorption. 4. Other fatigue (R53.83) Persistent fatigue despite normal thyroid function, B12 levels on the lower side, and no signs of inflammation. Hemoglobin at 12 g/dL, GFR at 100 mL/min/1.73 m?, normal WBC count, and normal glucose levels. - (more content not included)... Normal [facility] Ferritin [facility]Pl[facility] Ferritin [Mass/Vol] 43.0 ng/mL Normal 14.7-205.1 [facility] Comment on above: Order Comment: Speci men Type: BLOOD SPECIMENOrdering Facility: [facility] Address: [address] [place] [address] Performed By: #### 5 0190-8, 2276-4 ####[facility] [id number] [place] [address] [place] Iron and Iron binding capaci ty panelon 06-21-2024 Iron [Mass/Vol] 90 ug/dL Normal 41-186 [facility] Comment on above: Order Comment: Speci men Type: BLOOD SPECIMENOrdering Facility: [facility] Address: [address] [place] [address] Performed By: #### 5 0190-8, 6-4 ####[facility] [id number] [address] [place] Iron binding capacity [Mass/Vol] 360 ug/dL Normal 232-386 [facility] Comment on above: Order Comment: Speci men Type: BLOOD SPECIMENOrdering Facility: [facility] Address: [address] [place] [address] Performed By: #### 5 0190-8, 2275-4 ####[facility] [id number] [address] [place] Iron/TIBC [Molar ratio] 25.0 % Normal 15.0-57.0 [facility] Comment on above: Order Comment: Speci men Type: BLOOD SPECIMENOrdering Facility: [facility] Address: [address] [place] [address] Performed By: #### 5 0190-8, 2275-4 ####[facility] LABIA [id number] [place] [address] [place] CBC W Auto Differential pane l (Bld)on 05-31-2024 Basophils (Bld) [#/Vol] 0.06 10*3/uL NINF [facility] Basophils/100 WBC (Bld) 0.7 % [facility] Differential cell count method Nom (Bld) Auto [facility] Eosinophils (Bld) [#/Vol] 0.06 10*3/uL [facility] Eosinophils/100 WBC (Bld) 0.7 % [facility] Erythrocyte distribution width (RBC) [Ratio] 13.6 % 11.5 - 15.0 % [facility] Hematocrit (Bld) [Volume fraction] 39.2 % 36.0 - 46.0 % [facility] Hemoglobin (Bld) [Mass/Vol] 12.2 g/dL 11.5 - 15.5 g/dL [facility] Immature granulocytes (Bld) [#/Vol] [facility] Immature granulocytes/100 WBC (Bld) 0.1 % [facility] Interpretation and review of laboratory results Abnormal [facility] Lymphocytes (Bld) [#/Vol] 2.01 10*3/uL [facility] Lymphocytes/100 WBC (Bld) 24.5 % [facility] MCH (RBC) [Entitic mass] 25.6 pg Low 26.0 - 34.0 pg [facility] MCHC (RBC) [Mass/Vol] 31.1 g/dL 30.5 - 36.0 g/dL [facility] MCV (RBC) [Entitic vol] 82.2 fL 80.0 - 100.0 fL [facility] Monocytes (Bld) [#/Vol] 0.46 10*3/uL [facility] Monocytes/100 WBC (Bld) 5.6 % [facility] Neutrophils (Bld) [#/Vol] 5.6 10*3/uL [facility] Neutrophils/100 WBC (Bld) 68.4 % [facility] Nucleated RBC (Bld) [#/Vol] [facility] Nucleated RBC/100 WBC (Bld) [Ratio] 0 % /100 WBC [facility] Platelet mean volume (Bld) [Entitic vol] 11.9 fL 9.0 - 12.7 fL [facility] Platelets (Bld) [#/Vol] 247 10*3/uL [facility] RBC (Bld) [#/Vol] 4.77 10*6/uL 3.90 - 5.2 0 m/uL [facility] WBC (Bld) [#/Vol] 8.2 10*3/uL [facility] Basophils (Bld) [#/Vol] 0.06 10*3/uL Normal <0.11 [facility] Comment on above: Order Comment: Speci men Type: BLOOD SPECIMENOrdering Facility: [facility] Address: [address] [place] [address] Performed By: #### 5 7021-8, 7 ####[facility] LABCLIA [id number] [place] [address] [place] Basophils/100 WBC (Bld) 0.7 % Normal [facility] Comment on above: Order Comment: Speci men Type: BLOOD SPECIMENOrdering Facility: [facility] Address: [address] [place] [address] Performed By: #### 5 7021-8, 7 ####[facility] LABCLIA [id number] [place] [address] [place] Differential cell count method Nom (Bld) Auto Normal [facility] Comment on above: Order Comment: Speci men Type: BLOOD SPECIMENOrdering Facility: [facility] Address: [address] [place] [address] Performed By: #### 5 7021-8, 7 ####[facility] LABCLIA [id number] [place] [address] [place] Eosinophils (Bld) [#/Vol] 0.06 10*3/uL Normal <0.46 [facility] Comment on above: Order Comment: Speci men Type: BLOOD SPECIMENOrdering Facility: [facility] Address: [address] [place] [address] Performed By: #### 5 7021-8, 4536-08 ####[facility] LABCLIA [id number] [place] [address] [place] Eosinophils/100 WBC (Bld) 0.7 % Normal [facility] Comment on above: Order Comment: Speci men Type: BLOOD SPECIMENOrdering Facility: [facility] Address: [address] [place] [address] Performed By: #### 5 7021-8, 4536-7 ####[facility] LABCLIA [id number] [address] [address] [place] Erythrocyte distribution width (RBC) [Ratio] 13.6 % Normal 11.5-15.0 [facility] Comment on above: Order Comment: Speci men Type: BLOOD SPECIMENOrdering Facility: [facility] Address: [address] [place] [address] Performed By: #### 5 7021-8, 7 ####[facility] LABIA [id number] [place] [address] [place] Hematocrit (Bld) [Volume fraction] 39.2 % Normal 36.0-46.0 [facility] Comment on above: Order Comment: Speci men Type: BLOOD SPECIMENOrdering Facility: [facility] Address: [address] [place] [address] Performed By: #### 5 7021-8, 7 ####[facility] LABIA [id number] [place] [address] [place] Hemoglobin (Bld) [Mass/Vol] 12.2 g/dL Normal 11.5-15.5 [facility] Comment on above: Order Comment: Speci men Type: BLOOD SPECIMENOrdering Facility: [facility] Address: [address] [place] [address] Performed By: #### 5 7021-8, 7 ####[facility] LABIA [id number] [place] [address] [place] Immature granulocytes (Bld) [#/Vol] 10*3/uL Normal <0.10 [facility] Comment on above: Order Comment: Speci men Type: BLOOD SPECIMENOrdering Facility: [facility] Address: [address] [place] [address] Performed By: #### 5 7021-8, 4536-7 ####[facility] LABCLIA [id number] [place] [address] [place] Immature granulocytes/100 WBC (Bld) 0.1 % Normal [facility] Comment on above: Order Comment: Speci men Type: BLOOD SPECIMENOrdering Facility: [facility] Address: [address] [place] [address] Performed By: #### 5 7021-8, 4537-7 ####[facility] LABCLIA [id number] [place] [address] [place] Lymphocytes (Bld) [#/Vol] 2.01 10*3/uL Normal 1.00-4.00 [facility] Comment on above: Order Comment: Speci men Type: BLOOD SPECIMENOrdering Facility: [facility] Address: [address] [place] [address] Performed By: #### 5 7021-8, 4537-7 ####[facility] LABCLIA [id number] [place] [address] [place] Lymphocytes/100 WBC (Bld) 24.5 % Normal [facility] Comment on above: Order Comment: Speci men Type: BLOOD SPECIMENOrdering Facility: [facility] Address: [address] [place] [address] Performed By: #### 5 7021-8, 7-7 ####[facility] LABCLIA [id number] [place] [address] [place] MCH (RBC) [Entitic mass] 25.6 pg Low 26.0-34.0 [facility] Comment on above: Order Comment: Speci men Type: BLOOD SPECIMENOrdering Facility: [facility] Address: [address] [place] [address] Performed By: #### 5 7021-8, 7-7 ####[facility] LABCLIA [id number] [place] [id number] [place] MCHC (RBC) [Mass/Vol] 31.1 g/dL Normal 30.5-36.0 [facility] Comment on above: Order Comment: Speci men Type: BLOOD SPECIMENOrdering Facility: [facility] Address: [address] [place] [address] Performed By: #### 5 7021-8, 7 ####[facility] LABCLIA [id number] [place] [address] [place] MCV (RBC) [Entitic vol] 82.2 fL Normal 80.0-100.0 [facility] Comment on above: Order Comment: Speci men Type: BLOOD SPECIMENOrdering Facility: [facility] Address: [address] [place] [address] Performed By: #### 5 7021-8, 7 ####[facility] LABCLIA [id number] [place] [address] [place] Monocytes (Bld) [#/Vol] 0.46 10*3/uL Normal <0.87 [facility] Comment on above: Order Comment: Speci men Type: BLOOD SPECIMENOrdering Facility: [facility] Address: [address] [place] [address] Performed By: #### 5 7021-8, 7 ####[facility] LABCLIA [id number] [place] [address] [place] Monocytes/100 WBC (Bld) 5.6 % Normal [facility] Comment on above: Order Comment: Speci men Type: BLOOD SPECIMENOrdering Facility: [facility] Address: [address] [place] [address] Performed By: #### 5 7021-8, 7 ####[facility] LABCLIA [id number] [place] [address] [place] Neutrophils (Bld) [#/Vol] 5.60 10*3/uL Normal 1.45-7.50 [facility] Comment on above: Order Comment: Speci men Type: BLOOD SPECIMENOrdering Facility: [facility] Address: [address] [place] [address] Performed By: #### 5 7021-8, 4536-7 ####[facility] LABCLIA [id number] [address] [facility] Neutrophils/100 WBC (Bld) 68.4 % Normal [facility] Comment on above: Order Comment: Speci men Type: BLOOD SPECIMENOrdering Facility: [facility] Address: [address] [place] [address] Performed By: #### 5 7021-8, 7 ####[facility] LABIA [id number] [place] [address] [place] Nucleated RBC (Bld) [#/Vol] 10*3/uL Normal <0.01 [facility] Comment on above: Order Comment: Speci men Type: BLOOD SPECIMENOrdering Facility: [facility] Address: [address] [place] [address] Performed By: #### 5 7021-8, 7 ####[facility] LABIA [id number] [place] [address] [place] Nucleated RBC/100 WBC (Bld) [Ratio] 0.0 /100 WBC Normal [facility] Comment on above: Order Comment: Speci men Type: BLOOD SPECIMENOrdering Facility: [facility] Address: [address] [place] [address] Performed By: #### 5 7021-8, 7 ####[facility] LABIA [id number] [place] [address] [place] Platelet mean volume (Bld) [Entitic vol] 11.9 fL Normal 9.0-12.7 [facility] Comment on above: Order Comment: Speci men Type: BLOOD SPECIMENOrdering Facility: [facility] Address: [address] [place] [address] Performed By: #### 5 7021-8, 4536-08 ####[facility] LABIA [id number] [place] [address] [place] Platelets (Bld) [#/Vol] 247 10*3/uL Normal 150-400 [facility] Comment on above: Order Comment: Speci men Type: BLOOD SPECIMENOrdering Facility: [facility] Address: [address] [place] [address] Performed By: #### 5 7021-8, 4537-7 ####[facility] LABIA [id number] [place] [address] [place] RBC (Bld) [#/Vol] 4.77 10*6/uL Normal 3.90-5.20 [facility] Comment on above: Order Comment: Speci men Type: BLOOD SPECIMENOrdering Facility: [facility] Address: [address] [place] [address] Performed By: #### 5 7021-8, 4537-7 ####[facility] [id number] [place] [address] [place] WBC (Bld) [#/Vol] 8.20 10*3/uL Normal 3.70-11.00 [facility] Comment on above: Order Comment: Speci men Type: BLOOD SPECIMENOrdering Facility: [facility] Address: [address] [place] [address] Performed By: #### 5 7021-8, 4537-7 ####[facility] [id number] [place] [id number] [place] CNOVon 05-31-2024 CNOV Office Visit (INTMWS ) JOHANNA [id number]) 1985 F Date Time Provider Department 05/31/24 2:40 PM ANTOINETTE ANTHONY During your visit today, we recorded the following information about you: Pulse Respiration Blood pressure 90/minute 16/minute 106/68 Antoinette Anthony APRN.ENGINE TEST CELL TECHNICIAN 05/31/2024 5:07 PM Signed CC: Patient presents with: Recheck: Follow up oral thrush HPI Johanna Carver is a 38 year old female who presents today for multiple concerns including ongoing thrush and tongue pain. Patient states that she has had multiple issues with thrush She has been on nystain swish and swallow and diflucan, most recently early april. This upset her stomach; but she still finished. She feels like her tongue hurts and has a film on her tongue. She has also had Diflucan recently for vaginal yeast about the same time. She has had ongoing issues for months per patient but does not feel like the symptoms have completely gone away. She also feels more fatigued than normal, brain fog, and noted two areas of bruising on her left knee and hip but does not remember any injury. Did have a recent workup for STDs ad negative for HIV. She states she limits her diet to no gluten/ no dairy because of her eosinophilic esophagitis. Denies any ongoing abdominal pain but has had bloating at her last menstrual cycle that was abnormal, not excessive bleeding. Denies any recent fevers or chills. 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 Patient with tachycardia during visit. Came straight from gym and has not slept and drank a lot of caffeine. Denies chest pain, shortness of breath, palpitations, or dizziness. REVIEW OF SYSTEMS General: no fevers, no chills, no night sweats, no change in appetite, no change in energy, and no significant changes in weight HEENT: no frequent or significant headaches, no changes in hearing, no visual changes, no nose bleeds, no sinus or nasal problems Neck: no lumps, no pain , and no swelling Respiratory: no cough, no wheezing, no shortness of breath, no hemoptysis Cardiovascular: no chest pain, no chest pressure, no palpitations, and no swelling GI: No nausea, vomiting, or diarrhea : No history of dysuria, frequency or incontinence Musculoskeletal: Negative for joint pain or swelling, back pain or muscle pain Skin: Negative for lesions, rash, and itching Hematologic/Lymph: See HPI Neurologic: No headache, weakness, numbness, tingling, neck stiffness, tremor, vertigo, dizziness, memory loss, syncope. See HPI PAST MEDICAL HISTORY Diagnosis Date ADHD (attention deficit hyperactivity disorder) Adjustment disorder with depressed mood was previously on Paxil/effexor, self dc'ed for weight gain. Anemia Concussion 2016 Depressive disorder, not elsewhere classified Environmental and seasonal allergies Eosinophilic esophagitis 2016 Esophageal dysmotility 02/27/2018 Foot fracture, left 2016 TBI (traumatic brain injury) ([facility]) Unspecified symptom associated with female genital organs Pain in the vulvar area PAST SURGICAL HISTORY Procedure Laterality Date CORRECT BUNION,SIMPLE 2006 right EGD 1 or 2 times yearly REDUCTION OF LARGE BREAST 10/05/2008 Bilateral, uncomplciated RPR 1ST INGUN HRNA FULL TERM INFT <6 MO RDC ALLERGIES Penicillins and Sulfa (Sulfonamide Antibiotics) MEDICATIONS fluticasone (FLONASE) 50 mcg/actuation nasal spray Use 2 sprays in each nostril once daily. Rinse mouth after use. amphetamine-dextroamphetamin e XR (ADDERALL XR) 15 mg capsule Take 1 capsule by mouth once daily for 30 days. baclofen 10 mg tablet 1 tab bid prn for spasms Clindamycin Phosphate (CLEOCIN T) 1 % lotion Apply once a day as a spot treatment to the face adapalene-benzoyl peroxide 0.3-2.5 % Apply to affected area three times a week. ibuprofen (MOTRIN ORAL) Take 400 mg by mouth as needed. FAMILY HISTORY Problem Relation Age of Onset Psychiatry Mother post depression No Known Problems Father No Known Problems Sister No Known Problems Sister Ischemic Heart Disease Maternal Grandfather Heart Paternal Grandmother Pacemaker Cancer Paternal Grandmother Ischemic Heart Disease Paternal Grandfather Social History Tobacco Use Smoking status: Former Current packs/day: 0.00 Types: Cigarettes Quit date: 12/25/2016 Years since quittin.4 Smokeless tobacco: Never Tobacco comments: A few cigarettes per week. Vaping Use Vaping status: Never Used Substance Use Topics Alcohol use: Not Currently Comment: seldom Drug use: Never PHYSICAL EXAM BP 106/68 Pulse 90 Resp 16 LMP 03/27/2024 (Within Weeks) SpO2 98% General Appearance: well appearing, in no acute distress, alert Skin: Skin color, texture, turgor normal for age; Head: normocephalic, atraumatic Eyes: PERRLA, EOM's intact, conjunctiva pink and moist, no icterus, sclera white, non-in (more content not included)... Normal [facility] JOHANNA CARVER ([id number]) 1985 F Date Time Provider Department 05/31/24 GABY SOLIS INTMWS During your visit today, we recorded the following information about you: Moreno Manning RN 05/31/2024 11:53 AM Signed Patient calls to report a reoccurrence of oral thrush. Painful tongue and white coating to the tongue. Same day appointment scheduled. Patient wanting to know what treatment can be done since this keeps reoccurring. Patient asking about a culture. Notified that would be up to the provider that evaluates patient as to the testing/treatment provided. Patient verbalizes understanding. Moreno Manning RN Allergies As of Date: 05/31/2024 Noted Allergy Reaction PENICILLINS 10/03/2005 4 - Hives SULFA (SULFONAMIDE ANTIBIOTICS) 05/31/2019 7 - Swelling Comments: Swelling of the tongue Date Reviewed: 03/25/2024 Reviewed by: Antoinette Anthony APRN.ENGINE TEST CELL TECHNICIAN - Fully Assessed Reason for Visit: Appointment [186] Prescriptions as of 05/31/2024 - amphetamine-dextroamphetamin e XR (ADDERALL XR) 15 mg capsule Take 1 capsule by mouth once daily for 30 days. - baclofen 10 mg tablet 1 tab bid prn for spasms - Clindamycin Phosphate (CLEOCIN T) 1 % lotion Apply once a day as a spot treatment to the face - fluticasone (FLONASE) 50 mcg/actuation nasal spray Use 2 Sprays in each nostril once daily. Rinse mouth after use. - adapalene-benzoyl peroxide 0.3-2.5 % Apply to affected area three times a week. - ibuprofen (MOTRIN ORAL) Take 400 mg by mouth as needed. 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 ABNORMALITY OF GAIT [R26.9] 05/06/2005 DEPRESSIVE DISORDER NEC [F32.89] Unspecified Symptom Associated with Female Shanika*08/25/2009 Dyspareunia [HEU1044] 08/25/2009 12/31/2021 Dysmenorrhea [N94.6] 08/25/2009 12/31/2021 Irregular menstrual cycle [N92.6] 08/25/2009 12/31/2021 Dysuria [R30.0] 08/25/2009 Trigonitis [N30.30] 10/10/2009 Microscopic Hematuria [R31.29] 10/10/2009 Spasm of muscle [M62.838] 11/28/2009 Depression [F32.A] 09/20/2010 Generalized anxiety disorder [F41.1] 07/09/2018 Post concussion syndrome [F07.81] 07/09/2018 Traumatic brain injury (HCC) [S06.9XAA] 12/20/2019 Attention deficit hyperactivity disorder (ADHD)*04/16/2023 Encounter Status:Closed by MORENO MANNING on 05/31/24 Normal [facility] CRP SerPl-ncon 05-31-2024 CRP [Mass/Vol] mg/L Normal <0.9 [facility] Comment on above: Order Comment: Speci men Type: BLOOD SPECIMENOrdering Facility: [facility] Address: [address] [place] [address] [place] [address] Performed By: #### 1 988-5, 2132-9, 76461-3, 3016-3 ####[facility] LABCLIA [id number] [place] [address] [place] Comprehensive metabolic 2000 panelon 05-31-2024 Albumin [Mass/Vol] 4.6 g/dL Normal 3.9-4.9 [facility] Comment on above: Order Comment: Speci men Type: BLOOD SPECIMENOrdering Facility: [facility] Address: [address] [place] [address] Performed By: #### 1 988-5, 2131-9, 35498-8, 3016-3 ####[facility] LABCLIA [id number] [place] [id number] [place] ALP [Catalytic activity/Vol] 76 U/L Normal 34-123 [facility] Comment on above: Order Comment: Speci men Type: BLOOD SPECIMENOrdering Facility: [facility] Address: [address] [place] [address] Performed By: #### 1 988-5, 9, 59239-8, 3016-3 ####[facility] LABCLIA [id number] [place] [address] [place] ALT [Catalytic activity/Vol] 11 U/L Normal 7-38 [facility] Comment on above: Order Comment: Speci men Type: BLOOD SPECIMENOrdering Facility: [facility] Address: [address] [place] [address] Performed By: #### 1 988-5, 9, 39026-8, 3016-3 ####[facility] LABIA [id number] [place] [id number] [place] Anion gap [Moles/Vol] 12 mmol/L Normal 8-15 [facility] Comment on above: Order Comment: Speci men Type: BLOOD SPECIMENOrdering Facility: [facility] Address: [address] [place] [address] Performed By: #### 1 988-5, 2131-9, 88542-5, 3016-3 ####[facility] LABCLIA [id number] [address] [address] [place] AST [Catalytic activity/Vol] 22 U/L Normal 13-35 [facility] Comment on above: Order Comment: Speci men Type: BLOOD SPECIMENOrdering Facility: [facility] Address: [address] [place], [place] [address] Performed By: #### 1 988-5, 2131-9, 99598-5, 3016-3 ####[facility] LABCLIA [id number] [address] [address] [place] Bilirubin [Mass/Vol] 0.4 mg/dL Normal 0.2-1.3 [facility] Comment on above: Order Comment: Speci men Type: BLOOD SPECIMENOrdering Facility: [facility] Address: [address] [place] [address] Performed By: #### 1 988-5, 9, 55309-0, 6-3 ####[facility] LABCLIA [id number] [place] [address] [place] Calcium [Mass/Vol] 10.0 mg/dL Normal 8.5-10.2 [facility] Comment on above: Order Comment: Speci men Type: BLOOD SPECIMENOrdering Facility: [facility] Address: [address] [place] [address] Performed By: #### 1 988-5, 9, 91077-7, 6-3 ####[facility] LABCLIA [id number] [place] [address] [place] Chloride [Moles/Vol] 103 mmol/L Normal 98-107 [facility] Comment on above: Order Comment: Speci men Type: BLOOD SPECIMENOrdering Facility: [facility] Address: [address] [place] [address] Performed By: #### 1 988-5, 9, 51456-3, 3016-3 ####[facility] LABCLIA [id number] [address] [address] [place] CO2 [Moles/Vol] 21 mmol/L Low 22-30 [facility] Comment on above: Order Comment: Speci men Type: BLOOD SPECIMENOrdering Facility: [facility] Address: [address] [place] [address] Performed By: #### 1 988-5, 9, 11801-1, 6-3 ####[facility] LABCLIA [id number] [address] [address] [place] Creatinine [Mass/Vol] 0.78 mg/dL Normal 0.58-0.96 [facility] Comment on above: Order Comment: Speci men Type: BLOOD SPECIMENOrdering Facility: [facility] Address: [address] [place] [address] Performed By: #### 1 988-5, 2131-10, 34411-7, 6-3 ####[facility] LABIA [id number] [place] [address] [place] Creatinine and Glomerular filtration rate.predicted panel (S/P/Bld) 100 mL/min/1.73m??? Normal >=60 [facility] Comment on above: Order Comment: Speci men Type: BLOOD SPECIMENOrdering Facility: [facility] Address: [address] [place] [address] Result Comment: Shannan mated Glomerular Filtration Rate (eGFR) is calculated using the 2020 CKD-EPI creatinine equation. This equation utilizes serum creatinine, sex, and age as parameters. The creatinine assay has traceable calibration to isotope dilution-mass spectrometry. Refer to KDIGO guidelines for clinical interpretation. In patients with unstable renal function, e.g. those with acute kidney injury, the eGFR may not accurately reflect actual GFR. Performed By: #### 1 988-5, 9, 64216-0, 6-3 ####[facility] LABCLIA [id number] [address] [address] [place] Glucose [Mass/Vol] 89 mg/dL Normal 74-99 [facility] Comment on above: Order Comment: Speci men Type: BLOOD SPECIMENOrdering Facility: [facility] Address: [address] [place], [place] [address] Result Comment: The English Diabetes Association (ADA) provides guidance for cutoff values for fasting glucose and random glucose. The ADA defines fasting as no caloric intake for at least 8 hours. Fasting plasma glucose results between 100 to 125 mg/dL indicate increased risk for diabetes (prediabetes). Fasting plasma glucose results greater than or equal to 126 mg/dL meet the criteria for diagnosis of diabetes. In the absence of unequivocal hyperglycemia, results should be confirmed by repeat testing. In a patient with classic symptoms of hyperglycemia or hyperglycemic crisis, random plasma glucose results greater than or equal to 200 mg/dL meet the criteria for diagnosis of diabetes. Reference: Standards of Medical Care in Diabetes 2016, English Diabetes Association. Diabetes Care. 2016.39(Suppl 1). Performed By: #### 1 988-5, 2131-9, 21681-7, 3016-3 ####[facility] LABCLIA [id number] [place] [address] [place] Potassium [Moles/Vol] 4.7 mmol/L Normal 3.7-5.1 [facility] Comment on above: Order Comment: Speci men Type: BLOOD SPECIMENOrdering Facility: [facility] Address: [address] [place], [place] [address] Performed By: #### 1 988-5, 9, 63412-8, 3016-3 ####[facility] LABIA [id number] [address] [address] [place] Protein [Mass/Vol] 7.3 g/dL Normal 6.3-8.0 [facility] Comment on above: Order Comment: Speci men Type: BLOOD SPECIMENOrdering Facility: [facility] Address: [address] [place], [place] [address] Performed By: #### 1 988-5, 9, 82701-0, 3016-3 ####[facility] LABIA [id number] [address] [address] [place] Sodium [Moles/Vol] 136 mmol/L Normal 136-144 [facility] Comment on above: Order Comment: Speci men Type: BLOOD SPECIMENOrdering Facility: [facility] Address: [address] [place], [place] [address] Performed By: #### 1 988-5, 2132-9, 64990-9, 3016-3 ####[facility] LABCLIA [id number] [place] [address] [place] Urea nitrogen [Mass/Vol] 9 mg/dL Normal 7-21 [facility] Comment on above: Order Comment: Speci men Type: BLOOD SPECIMENOrdering Facility: [facility] Address: [address] [place] [address] Performed By: #### 1 988-5, 2-9, 47532-9, 3016-3 ####[facility] LABCLIA [id number] [place] [address] [place] [id number] 05-31-2024 ECG01 Ventricular Rate : 9 3 BPM Atrial Rate : 93 BPM P-R Interval : 140 ms QRS Duration : 70 ms Q-T Interval : 348 ms QTC Calculation(Bazett) : 432 ms Calculated P [place] : 71 degrees Calculated R [place] : 79 degrees Calculated T [place] : 72 degrees NORMAL SINUS RHYTHM NORMAL ECG Confirmed by MD ESCOBEDO QARAB ([id number]) on 06/01/2024 6:42:49 PM NAME : JOHANNA CARVER PID : [id number] : 1985 Gender : Female Race : Other ORD : Procedure Date : May 31 2024 15:42:59 Edit Date : Jun 01 2024 18:42:52 Diagnosis: NORMAL SINUS RHYTHM NORMAL ECG Confirmed by MD ESCOBEDO QARAB ([id number]) on 06/01/2024 6:42:49 PM Test Reason : Location : 185 : [facility] Overread By : MD ESCOBEDO QARAB Edited By : MD ESCOBEDO QARAB Referred By : , Acquired by : [id number], Normal [facility] ESR Westergren method (Bld) [Velocity]on 05-31-2024 ESR (Bld) [Velocity] 2 mm/h Normal 0-20 [facility] Comment on above: Order Comment: Speci men Type: BLOOD SPECIMENOrdering Facility: [facility] Address: [address] [place] [address] Performed By: #### 5 7021-8, 4537-7 ####[facility] LABIA [id number] [place] [address] [place] TSH SerPl-aCncon 05-31-2024 TSH Qn 1.150 m[IU]/L Normal 0.270-4.200 [facility] Comment on above: Order Comment: Speci men Type: BLOOD SPECIMENOrdering Facility: [facility] Address: [address] [place] [address] Result Comment: If t he patient is , TSH reference range varies by gestational period: First Trimester (weeks 9-12): 0.180-2.990 mIU/L Second Trimester: 0.110-3.980 mIU/L Third Trimester: 0.480-4.710 mIU/L Anand Adams et al. A Practical Approach for the Verifications and Determination of Site- and Trimester-Specific Reference Intervals for Thyroid Function tests in . Thyroid, 2019:29:3:412-420. Michael James, et al. 2017 Guidelines of the English Thyroid Association for the Diagnosis and Management of Thyroid Disease during and the . Thyroid, 2017:27:3:315-389. Performed By: #### 1 988-5, 2131-9, 44889-1, 3016-3 ####[facility] LABIA [id number] [place] [id number] [place] Vit B12 SerPl-mCncon 025 Cobalamin (Vitamin B12) [Mass/Vol] 316 pg/mL Normal 232-1245 [facility] Comment on above: Order Comment: Speci men Type: BLOOD SPECIMENOrdering Facility: [facility] Address: [address] [place] [address] Performed By: #### 1 988-5, 2131-9, 74017-0, 3016-3 ####[facility] LABCLIA [id number] [place] [address] [place] BACTERIAL VAGINOSIS NAATon 0 04-19-2024 Lactobacillus crispatus+gasseri+ jensenii + Gardnerella vaginalis + Atopobium vaginae rRNA KORY+probe Ql (Vag fld) Not detected Normal Not detected [facility] Comment on above: Order Comment: Speci men Type: SWABOrdering Facility: [facility] Address: [address] [place] [address] Performed By: #### C VTV, BVAMP ####[facility] LABCLIA [id number] [place] [address] [place] TEZ/TRICHOMONAS NAATon 0 04-19-2024 C. glabrata RNA KORY+probe Ql (Vag fld) Not detected Normal Not detected [facility] Comment on above: Order Comment: Speci men Type: SWABOrdering Facility: [facility] Address: [address] [place] [address] Performed By: #### C VTV, BVAMP ####[facility] LABCLIA [id number] [place] [address] [place] Tez sp DNA KORY+probe Ql (Vag fld) Not detected Normal Not detected [facility] Comment on above: Order Comment: Speci men Type: SWABOrdering Facility: [facility] Address: [address] [place] [address] Result Comment: The Tez species group target includes C. albicans, C. tropicalis, C. parapsilosis, and C. dubliniensis. Performed By: #### C VTV, BVAMP ####[facility] LABCLIA [id number] [place] [address] [place] T. vaginalis DNA KORY+probe Ql (Unsp spec) Not detected Normal Not detected [facility] Comment on above: Order Comment: Speci men Type: SWABOrdering Facility: [facility] Address: [address] [place] [address] Performed By: #### C VTV, BVAMP ####[facility] LABCLIA [id number] [facility] [id number] [id number] [place] CNOVon 04-19-2024 CNOV Office Visit (OBGYWM ) JOHANNA CARVER ([id number]) 1985 F Date Time Provider Department 04/19/24 9:30 AM LENA OLGUIN OBGYWM During your visit today, we recorded the following information about you: Blood pressure Last Period 122/64 03/27/24 Lena Olguin APRN.ENGINE TEST CELL TECHNICIAN 04/19/2024 10:03 AM Signed Patient declined paperhanger. Johanna Carver is a 38 year old female who presents for problem visit vaginal discharge for 2 week(s). HPI: Patient states that she was on a long-term antibiotic for an oral infection and then was treated with 2 rounds of Diflucan for a yeast infection by her primary care. But she is still noticing some vaginal irritation and believes that she may also have thrush. OB History Gravida2 Para0 Term0 Preterm0 AB0 Living2 SAB0 IAB0 Ectopic0 Multiple0 Live Births0 Bed Manager History LMP: 03/27/2024 (Within Weeks), Having periods Age at Menarche: Age at First : Age at Menopause: Bed Manager History Comments: Sexual Activity: Not Currently; Male Contraception: Condom PAST MEDICAL HISTORY Diagnosis Date ADHD (attention deficit hyperactivity disorder) Adjustment disorder with depressed mood was previously on Paxil/effexor, self ky'ed for weight gain. Anemia Concussion 2016 Depressive disorder, not elsewhere classified Environmental and seasonal allergies Eosinophilic esophagitis 2016 Esophageal dysmotility 02/27/2018 Foot fracture, left 2016 TBI (traumatic brain injury) (HCC) Unspecified symptom associated with female genital organs Pain in the vulvar area PAST SURGICAL HISTORY Procedure Laterality Date CORRECT BUNION,SIMPLE 2005 right EGD 1 or 2 times yearly REDUCTION OF LARGE BREAST 10/05/2008 Bilateral, uncomplciated RPR 1ST INGUN HRNA FULL TERM INFT <[address] FAMILY HISTORY Problem Relation Age of Onset Psychiatry Mother post depression No Known Problems Father No Known Problems Sister No Known Problems Sister Ischemic Heart Disease Maternal Grandfather Heart Paternal Grandmother Pacemaker Cancer Paternal Grandmother Ischemic Heart Disease Paternal Grandfather Social History Tobacco Use Smoking status: Former Current packs/day: 0.00 Types: Cigarettes Quit date: 12/25/2016 Years since quittin.3 Smokeless tobacco: Never Tobacco comments: A few cigarettes per week. Vaping Use Vaping status: Never Used Substance Use Topics Alcohol use: Not Currently Comment: seldom Drug use: Never Current Outpatient Medications Medication Sig baclofen 10 mg tablet 1 tab bid prn for spasms Clindamycin Phosphate (CLEOCIN T) 1 % lotion Apply once a day as a spot treatment to the face nystatin (MYCOSTATIN) 100,000 units/mL oral liquid Take 5 mL by mouth three times a day for 5 days. fluconazole (DIFLUCAN) 100 mg tablet Take 1 tablet by mouth once daily. Take 2 tablets on day 1 then 1 tablet daily after (Patient not taking: Reported on 04/19/2024) amphetamine-dextroamphetamin e XR (ADDERALL XR) 15 mg capsule Take 1 capsule by mouth once daily for 30 days. Patient should start on March 12, 2024. spironolactone (ALDACTONE) 25 mg tablet Take 25 mg by mouth once daily. (Patient not taking: Reported on 04/19/2024) fluticasone (FLONASE) 50 mcg/actuation nasal spray Use 2 Sprays in each nostril once daily. Rinse mouth after use. adapalene-benzoyl peroxide 0.3-2.5 % Apply to affected area three times a week. ibuprofen (MOTRIN ORAL) Take 400 mg by mouth as needed. No current facility-administered medications for this visit. Allergies As of Date: 04/19/2024 Allergen Noted Reaction PENICILLINS 10/03/2005 Hives SULFA (SULFONAMIDE ANTIBIOTICS) 05/31/2019 Swelling Fully Assessed 03/25/2024 REVIEW OF SYSTEMS Abdomen: No bloating, early satiety, indigestion, or increased flatulence. No abdominal pain, nausea, vomiting, diarrhea, or constipation. Bladder: No dysuria, gross hematuria, urinary frequency, urinary urgency, or incontinence. Expanded ROS: N/A Allergies and current medication updated:Yes SENSITIVE EXAM: The sensitive examination was discussed with the Patient or Patient's Authorized Claims Agent Right Of Way. As applicable, any other physician, advance practice provider, medical student, or other health professional student that will be observing or involved in the sensitive examination for educational or training purposes was discussed with the Patient or Authorized Claims Agent Right Of Way. The Patient or Authorized Claims Agent Right Of Way has agreed to proceed with the sensitive examination. (Sensitive examination includes inspection and/or palpation of the breasts, pelvis, prostate and anorectal regions). EXAM: BP 122/64 Wt 0 lb (0.0kg) LMP 03/27/2024 GENERAL: pleasant, female in no apparent distress HEENT: Normocephalic, atraumatic, mucus membranes moist, no lesions, and +white coating on posterior tongue CHEST (more content not included)... Normal [facility] Reagin and Treponema pallidu m IgG and IgM [Interp]on 04-19-2024 T. pallidum IgG+IgM IA Ql (S) Non-Reactive Normal Nonreactive [facility] Comment on above: Order Comment: Speci men Type: BLOOD SPECIMENOrdering Facility: [facility] Address: [address] [place] [address] Performed By: #### 7 3752-8 ####[facility] LABIA [id number] [place] [address] [place] Reagin+T pallidum IgG+IgM Se rPl-Impon 04-19-2024 Reagin and Treponema pallidum IgG and IgM [Interp] Cannot exclude recent Treponemal infection if specimen collected within 7-10 days after appearance of suspect lesions or 2-3 weeks after an exposure. Clinical correlation is required. Normal [facility] Comment on above: Order Comment: Speci men Type: BLOOD SPECIMENOrdering Facility: [facility] Address: [address] [place] [address] Performed By: #### 7 3752-8 ####[facility] LABCLIA [id number] [place] [id number] [facility] CNOVon 04-12-2024 CNOV Office Visit (VALERIY ) JOHANNA CARVER ([id number]) 1985 F Date Time Provider Department 04/12/24 10:00 AM NAAR OCAMPO During your visit today, we recorded the following information about you: Nara Ocampo LISW 04/13/2024 4:20 PM Signed No show Referring Provider: NARA OCAMPO [[id number]] Allergies As of Date: 04/12/2024 Noted Allergy Reaction PENICILLINS 10/03/2005 4 - Hives SULFA (SULFONAMIDE ANTIBIOTICS) 05/31/2019 7 - Swelling Comments: Swelling of the tongue Date Reviewed: 03/25/2024 Reviewed by: Antoinette Anthony APRN.ENGINE TEST CELL TECHNICIAN - Fully Assessed Reason for Visit: No Show [1558] Primary Visit Diagnosis:No-show for appointment [Z91.199] Prescriptions as of 04/13/2024 - fluconazole (DIFLUCAN) 100 mg tablet Take 1 tablet by mouth once daily. Take 2 tablets on day 1 then 1 tablet daily after - amphetamine-dextroamphetamin e XR (ADDERALL XR) 15 mg capsule Take 1 capsule by mouth once daily for 30 days. Patient should start on March 12, 2024. - baclofen 10 mg tablet 1 tab bid prn for spasms - spironolactone (ALDACTONE) 25 mg tablet Take 25 mg by mouth once daily. - Clindamycin Phosphate (CLEOCIN T) 1 % lotion Apply once a day as a spot treatment to the face - fluticasone (FLONASE) 50 mcg/actuation nasal spray Use 2 Sprays in each nostril once daily. Rinse mouth after use. - adapalene-benzoyl peroxide 0.3-2.5 % Apply to affected area three times a week. - ibuprofen (MOTRIN ORAL) Take 400 mg by mouth as needed. 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 ABNORMALITY OF GAIT [R26.9] 05/06/2005 DEPRESSIVE DISORDER NEC [F32.89] Unspecified Symptom Associated with Female Shanika*08/25/2009 Dyspareunia [LEV9804] 08/25/2009 12/31/2021 Dysmenorrhea [N94.6] 08/25/2009 12/31/2021 Irregular menstrual cycle [N92.6] 08/25/2009 12/31/2021 Dysuria [R30.0] 08/25/2009 Trigonitis [N30.30] 10/10/2009 Microscopic Hematuria [R31.29] 10/10/2009 Spasm of muscle [M62.838] 11/28/2009 Depression [F32.A] 09/20/2010 Generalized anxiety disorder [F41.1] 07/09/2018 Post concussion syndrome [F07.81] 07/09/2018 Traumatic brain injury (HCC) [S06.9XAA] 12/20/2019 Attention deficit hyperactivity disorder (ADHD)*04/16/2023 Encounter Status:Closed by NARA OCAMPO on 04/13/24 [facility] 04-05-2024 [facility] Telephone (INTMWS) JOHANNA CARVER ([id number]) 1985 F Date Time Provider Department 04/05/24 GABY SOLIS INTWS During your visit today, we recorded the following information about you: Nayla Balbuena, RN 04/05/2024 9:47 AM Signed Pt called in and reports she was seen by Atnoinette Anthony on 03/25/24, and she ordered her Diflucan. Pt had been on 30 days worth of antibiotics from the dentist. Pt states she doesn't think the yeast went away completely, and now it has come back with a vengeance. Pt states she has thick white vaginal discharge and her tongue feels thick. She is asking if the provider would call in some more Diflucan or something else in for her. Per Pt she does not like the swish and swallow and forgets to take things when scheduled through out the day. Please call and advise. Gaby Solis MD 04/06/2024 12:02 AM Signed Please let he know, I sent another rx for diflucan. Regards, Nayla Momin MD, RN 04/06/2024 8:06 AM Signed Pt called and is notified of providers message. Pt voices understanding. Nayla Balbuena RN Allergies As of Date: 04/05/2024 Noted Allergy Reaction PENICILLINS 10/03/2005 4 - Hives SULFA (SULFONAMIDE ANTIBIOTICS) 05/31/2019 7 - Swelling Comments: Swelling of the tongue Date Reviewed: 03/25/2024 Reviewed by: Antoinette Anthony APRN.ENGINE TEST CELL TECHNICIAN - Fully Assessed Reason for Visit: Patient Update [1234] Medication Request [138] Order(s):fluconazole (DIFLUCAN) 100 mg tabletTake 1 tablet by mouth once daily. Take 2 tablets on day 1 then 1 tablet daily afterDisp: 8 tabletRfl: 0 Prescriptions as of 04/06/2024 - fluconazole (DIFLUCAN) 100 mg tablet Take 1 tablet by mouth once daily. Take 2 tablets on day 1 then 1 tablet daily after - amphetamine-dextroamphetamin e XR (ADDERALL XR) 15 mg capsule Take 1 capsule by mouth once daily for 30 days. Patient should start on March 12, 2024. - baclofen 10 mg tablet 1 tab bid prn for spasms - spironolactone (ALDACTONE) 25 mg tablet Take 25 mg by mouth once daily. - Clindamycin Phosphate (CLEOCIN T) 1 % lotion Apply once a day as a spot treatment to the face - fluticasone (FLONASE) 50 mcg/actuation nasal spray Use 2 Sprays in each nostril once daily. Rinse mouth after use. - adapalene-benzoyl peroxide 0.3-2.5 % Apply to affected area three times a week. - ibuprofen (MOTRIN ORAL) Take 400 mg by mouth as needed. Problem List As Of Date 04/05/2024 Noted Resolved HALLUX VALGUS [M20.10] 04/22/2005 CONGENITAL PES PLANUS [Q66.50] 04/22/2005 ABNORMALITY OF GAIT [R26.9] 05/06/2005 DEPRESSIVE DISORDER NEC [F32.89] Unspecified Symptom Associated with Female Shanika*08/25/2009 Dyspareunia [BQK7892] 08/25/2009 12/31/2021 Dysmenorrhea [N94.6] 08/25/2009 12/31/2021 Irregular menstrual cycle [N92.6] 08/25/2009 12/31/2021 Dysuria [R30.0] 08/25/2009 Trigonitis [N30.30] 10/10/2009 Microscopic Hematuria [R31.29] 10/10/2009 Spasm of muscle [M62.838] 11/28/2009 Depression [F32.A] 09/20/2010 Generalized anxiety disorder [F41.1] 07/09/2018 Post concussion syndrome [F07.81] 07/09/2018 Traumatic brain injury (HCC) [S06.9XAA] 12/20/2019 Attention deficit hyperactivity disorder (ADHD)*04/16/2023 Prescriptions ordered this encounter Disp Refills Start End FLUCONAZOLE 100 MG TABLET 8 ta* 0 04/06/2024 Route: ORAL Sig: Take 1 tablet by mouth once daily. Take 2 tablets on day 1 then 1 tablet daily after Medications Discontinued During This Encounter Prescriptions - fluconazole (DIFLUCAN) 100 mg tablet (Discontinued) Take 1 tablet by mouth once daily. Take 2 tablets on day 1 then 1 tablet daily after Encounter Status:Closed by NAYLA BALBUENA on 04/06/[address] [facility] 03-30-2024 [facility]OH[facility] CARVER ([id number]) 1985 F Date Time Provider Department 03/30/24 10:30 AM [place] NURSE SALEEM During your visit today, we recorded the following information about you: Shanta Greene LPN 03/30/2024 10:12 AM Signed Patient presented to complete PPD testing. 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 Today's testing was to be for another job she will also be starting. Recommended that she continue with testing on and have them give her printed results that can be attached to any paperwork for supplemental employment. Verbalized understanding. Shanta Greene LPN Allergies As of Date: 03/30/2024 Noted Allergy Reaction PENICILLINS 10/03/2005 4 - Hives SULFA (SULFONAMIDE ANTIBIOTICS) 05/31/2019 7 - Swelling Comments: Swelling of the tongue Date Reviewed: 03/25/2024 Reviewed by: Antoinette Anthony APRN.ENGINE TEST CELL TECHNICIAN - Fully Assessed Reason for Visit: Appointment Cancelled [1023] Primary Visit Diagnosis:APPOINTMENT CANCELLED Prescriptions as of 03/30/2024 - fluconazole (DIFLUCAN) 100 mg tablet Take 1 tablet by mouth once daily. Take 2 tablets on day 1 then 1 tablet daily after - amphetamine-dextroamphetamin e XR (ADDERALL XR) 15 mg capsule Take 1 capsule by mouth once daily for 30 days. Patient should start on March 12, 2024. - baclofen 10 mg tablet 1 tab bid prn for spasms - spironolactone (ALDACTONE) 25 mg tablet Take 25 mg by mouth once daily. - Clindamycin Phosphate (CLEOCIN T) 1 % lotion Apply once a day as a spot treatment to the face - fluticasone (FLONASE) 50 mcg/actuation nasal spray Use 2 Sprays in each nostril once daily. Rinse mouth after use. - adapalene-benzoyl peroxide 0.3-2.5 % Apply to affected area three times a week. - ibuprofen (MOTRIN ORAL) Take 400 mg by mouth as needed. 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/2005 ABNORMALITY OF GAIT [R26.9] 05/06/2005 DEPRESSIVE DISORDER NEC [F32.89] Unspecified Symptom Associated with Female Shanika*08/25/2009 Dyspareunia [[id number]] 08/25/2009 12/31/2021 Dysmenorrhea [N94.6] 08/25/2009 12/31/2021 Irregular menstrual cycle [N92.6] 08/25/2009 12/31/2021 Dysuria [R30.0] 08/25/2009 Trigonitis [N30.30] 10/10/2009 Microscopic Hematuria [R31.29] 10/10/2009 Spasm of muscle [M62.838] 11/28/2009 Depression [F32.A] 09/20/2010 Generalized anxiety disorder [F41.1] 07/09/2018 Post concussion syndrome [F07.81] 07/09/2018 Traumatic brain injury (HCC) [S06.9XAA] 12/20/2019 Attention deficit hyperactivity disorder (ADHD)*04/16/2023 Encounter Status:Closed by SHANTA GREENE on 03/30/24 Normal [facility] 25(OH)D3 SerPl-ncon 2024 25-hydroxyvitamin D3 [Mass/Vol] 38.0 ng/mL Normal 31.0-80.0 [facility] Comment on above: Order Comment: Speci men Type: BLOOD SPECIMENOrdering Facility: [facility] Address: [address] [place] [address] Result Comment: Clas sification of 25 OH Vitamin D status: Deficiency/Insufficiency: < or = 30 ng/ml. Sufficiency/Optimal Levels: 31-80 ng/mL Toxicity: > 100 ng/mL. Test performed by chemiluminescent immunoassay. Performed By: #### 1 989-3 ####[facility] LABCLIA [id number] [place] [address] [place] CBC panel Auto (Bld)on 03-25 Erythrocyte distribution width (RBC) [Ratio] 13.4 % Normal 11.5-15.0 [facility] Comment on above: Order Comment: Speci men Type: BLOOD SPECIMENOrdering Facility: [facility] Address: [address] [place] [address] Performed By: #### 5 8410-2 ####[facility] LABCLIA [id number] [place] [address] [place] Hematocrit (Bld) [Volume fraction] 39.4 % Normal 36.0-46.0 [facility] Comment on above: Order Comment: Speci men Type: BLOOD SPECIMENOrdering Facility: [facility] Address: [address] [place] [address] Performed By: #### 5 8410-2 ####[facility] LABIA [id number] [place] [address] [place] Hemoglobin (Bld) [Mass/Vol] 12.4 g/dL Normal 11.5-15.5 [facility] Comment on above: Order Comment: Speci men Type: BLOOD SPECIMENOrdering Facility: [facility] Address: [address] [place] [address] Performed By: #### 5 8410-2 ####[facility] LABIA [id number] [place] [address] [place] MCH (RBC) [Entitic mass] 26.1 pg Normal 26.0-34.0 [facility] Comment on above: Order Comment: Speci men Type: BLOOD SPECIMENOrdering Facility: [facility] Address: [address] [place] [address] Performed By: #### 5 8410-2 ####[facility] LABCLIA [id number] [place] [address] [place] MCHC (RBC) [Mass/Vol] 31.5 g/dL Normal 30.5-36.0 [facility] Comment on above: Order Comment: Speci men Type: BLOOD SPECIMENOrdering Facility: [facility] Address: [address] [place] [address] Performed By: #### 5 8410-2 ####[facility] LABCLIA [id number] [place] [address] [place] MCV (RBC) [Entitic vol] 82.8 fL Normal 80.0-100.0 [facility] Comment on above: Order Comment: Speci men Type: BLOOD SPECIMENOrdering Facility: [facility] Address: [address] [place] [address] Performed By: #### 5 8410-2 ####[facility] LABIA [id number] [place] [address] [place] Nucleated RBC (Bld) [#/Vol] 10*3/uL Normal <0.01 [facility] Comment on above: Order Comment: Speci men Type: BLOOD SPECIMENOrdering Facility: [facility] Address: [address] [place] [address] Performed By: #### 5 8410-2 ####[facility] LABIA [id number] [place] [address] [place] Platelet mean volume (Bld) [Entitic vol] 11.6 fL Normal 9.0-12.7 [facility] Comment on above: Order Comment: Speci men Type: BLOOD SPECIMENOrdering Facility: [facility] Address: [address] [place] [address] Performed By: #### 5 8410-2 ####[facility] LABIA [id number] [place] [address] [place] Platelets (Bld) [#/Vol] 253 10*3/uL Normal 150-400 [facility] Comment on above: Order Comment: Speci men Type: BLOOD SPECIMENOrdering Facility: [facility] Address: [address] [place] [address] Performed By: #### 5 8410-2 ####[facility] LABCLIA [id number] [place] [address] [place] RBC (Bld) [#/Vol] 4.76 10*6/uL Normal 3.90-5.20 [facility] Comment on above: Order Comment: Speci men Type: BLOOD SPECIMENOrdering Facility: [facility] Address: [address] [place] [address] Performed By: #### 5 8410-2 ####[facility] LABCLIA [id number] [place] [address] [place] WBC (Bld) [#/Vol] 6.06 10*3/uL Normal 3.70-11.00 [facility] Comment on above: Order Comment: Speci men Type: BLOOD SPECIMENOrdering Facility: [facility] Address: [address] [place] [address] Performed By: #### 5 8410-2 ####[facility] LABCLIA [id number] [address] [place] CNOV[place] 03-25-2024 [facility] Office Visit ([facility] ) JOHANNA CARVER ([id number]) 1985 F Date Time Provider Department 03/25/24 8:20 AM ANTOINETTE ANTHONY IN[facility] During your visit today, we recorded the following information about you: Temperature Pulse Blood pressure Weight 97.3 degrees 88/minute 108/75 59.4 kg Height 1.63 m Antoinette Anthony APRN.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 Had a tooth infection previously and was on clindamycin for a few months. Had the tooth fixed weeks ago and feels great but states her tongue feels thick and things are tasting weird and like metal. Also has noticed her tongue has been white. Does not like swish and swallow as she forgets to take things when scheduled throughout the day. ADD: Controlled well with current treatment and able to focus throughout work and get tasks completed efficiently. Has been on current dose since last year and tolerating well. REVIEW OF SYSTEMS General: no fevers, no chills, no night sweats, no recurrent infections, no change in appetite, no change in energy, and no significant changes in weight Respiratory: no cough, no wheezing, no shortness of breath, no hemoptysis Cardiovascular: no chest pain, no chest pressure, no palpitations, and no swelling GI: No nausea, vomiting, or diarrhea : No history of dysuria, frequency or incontinence Endocrine: no fatigue, no weight gain, no weight loss, no polyuria, no polyphagia, and no polydipsia Neurologic: No headache, weakness, dizziness, memory loss, syncope. PAST MEDICAL HISTORY Diagnosis Date ADHD (attention deficit hyperactivity disorder) Adjustment disorder with depressed mood was previously on Paxil/effexor, self ky'ed for weight gain. Anemia Concussion 2016 Depressive disorder, not elsewhere classified Environmental and seasonal allergies Eosinophilic esophagitis 2016 Esophageal dysmotility 02/27/2018 Foot fracture, left 2016 TBI (traumatic brain injury) ([facility]) Unspecified symptom associated with female genital organs Pain in the vulvar area PAST SURGICAL HISTORY Procedure Laterality Date CORRECT BUNION,SIMPLE 2005 right EGD 1 or 2 times yearly REDUCTION OF LARGE BREAST 10/05/2008 Bilateral, uncomplciated RPR 1ST INGUN HRNA FULL TERM INFT <6 MO RDC ALLERGIES Penicillins and Sulfa (Sulfonamide Antibiotics) MEDICATIONS amphetamine-dextroamphetamin e XR (ADDERALL XR) 15 mg capsule Take 1 capsule by mouth once daily for 30 days. Patient should start on March 12, 2024. baclofen 10 mg tablet 1 tab bid prn for spasms spironolactone (ALDACTONE) 25 mg tablet Take 25 mg by mouth once daily. Clindamycin Phosphate (CLEOCIN T) 1 % lotion Apply once a day as a spot treatment to the face fluticasone (FLONASE) 50 mcg/actuation nasal spray Use 2 Sprays in each nostril once daily. Rinse mouth after use. adapalene-benzoyl peroxide 0.3-2.5 % Apply to affected area three times a week. ibuprofen (MOTRIN ORAL) Take 400 mg by mouth as needed. FAMILY HISTORY Problem Relation Age of Onset Psychiatry Mother post depression No Known Problems Father No Known Problems Sister No Known Problems Sister Ischemic Heart Disease Maternal Grandfather Heart Paternal Grandmother Pacemaker Cancer Paternal Grandmother Ischemic Heart Disease Paternal Grandfather Social History Tobacco Use Smoking status: Former Current packs/day: 0.00 Types: Cigarettes Quit date: 12/25/2016 Years since quittin.2 Smokeless tobacco: Never Tobacco comments: A few cigarettes per week. Vaping Use Vaping status: Never Used Substance Use Topics Alcohol use: Not Currently Comment: seldom Drug use: Never PHYSICAL EXAM BP 125/90 (BP Site: Left Arm) Pulse 98 Temp 36.3 ?C (97.3 ?F) Ht 163 cm (5' 4.17) Wt 59.4 kg (131 lb) LMP 11/25/2023 (Within Weeks) SpO2 100% BMI 22.37 kg/m? General Appearance: well appearing, in no acute distress, alert Pysch: mood and affect broad and appropriate Eyes: conjunctiva pink and moist, no icterus, sclera white, non-injected Neck: Thyroid normal size and symmetric without palpable nodules, Neck supple, No adenopathy Oropharynx: tongue with white coating Lymph nodes: No cervical lymphadenopathy and No supraclavicular lymphadenopathy Lungs: Lungs clear to auscultation. No wheezing, rhonchi, rales. Heart: RRR without murmur, gallop, or rubs. No ectopy Abdomen: Abdomen soft, non-tender. Bowel sounds normal. No masses, organomegaly BUE Extremities: No deformities, edema, skin discoloration, clubbing or cyanosis. Good capillary refill. Neurological: Gait normal. Reflexes normal and symmetric. Sensation intact., speech normal, mental status intact, muscle tone normal, muscle strength normal Health main (more content not included)... Normal [facility] Comprehensive metabolic 2000 panelon 03-25-2024 Albumin [Mass/Vol] 4.5 g/dL Normal 3.9-4.9 [facility] Comment on above: Order Comment: Speci men Type: BLOOD SPECIMENOrdering Facility: [facility] Address: [address] [place] [address] [place] [id number] Performed By: #### 2 4323-8 ####[facility] LABCLIA [id number] [place] [address] [place] ALP [Catalytic activity/Vol] 79 U/L Normal 34-123 [facility] Comment on above: Order Comment: Speci men Type: BLOOD SPECIMENOrdering Facility: [facility] Address: [address] [place] [address] Performed By: #### 2 4323-8 ####[facility] LABCLIA [id number] [place] [address] [place] ALT [Catalytic activity/Vol] 12 U/L Normal 7-38 [facility] Comment on above: Order Comment: Speci men Type: BLOOD SPECIMENOrdering Facility: [facility] Address: [address] [place] [address] Performed By: #### 2 4323-8 ####[facility] LABCLIA [id number] [place] [address] [place] Anion gap [Moles/Vol] 8 mmol/L Normal 8-15 [facility] Comment on above: Order Comment: Speci men Type: BLOOD SPECIMENOrdering Facility: [facility] Address: [address] [place] [address] Performed By: #### 2 4323-8 ####[facility] LABCLIA [id number] [place] [address] [place] AST [Catalytic activity/Vol] 23 U/L Normal 13-35 [facility] Comment on above: Order Comment: Speci men Type: BLOOD SPECIMENOrdering Facility: [facility] Address: [address] [place] [address] Performed By: #### 2 4323-8 ####[facility] LABCLIA [id number] [place] [address] [place] Bilirubin [Mass/Vol] 0.4 mg/dL Normal 0.2-1.3 [facility] Comment on above: Order Comment: Speci men Type: BLOOD SPECIMENOrdering Facility: [facility] Address: [address] [place] [address] Performed By: #### 2 4323-8 ####[facility] LABCLIA [id number] [place] [address] [place] Calcium [Mass/Vol] 9.4 mg/dL Normal 8.5-10.2 [facility] Comment on above: Order Comment: Speci men Type: BLOOD SPECIMENOrdering Facility: [facility] Address: [address] [place] [address] Performed By: #### 2 4323-8 ####[facility] LABCLIA [id number] [place] [address] [place] Chloride [Moles/Vol] 103 mmol/L Normal 98-107 [facility] Comment on above: Order Comment: Speci men Type: BLOOD SPECIMENOrdering Facility: [facility] Address: [address] [place] [address] Performed By: #### 2 4323-8 ####[facility] LABCLIA [id number] [place] [address] [place] CO2 [Moles/Vol] 25 mmol/L Normal 22-30 [facility] Comment on above: Order Comment: Speci men Type: BLOOD SPECIMENOrdering Facility: [facility] Address: [address] [place] [address] Performed By: #### 2 4323-8 ####[facility] LABCLIA [id number] [place] [address] [place] Creatinine [Mass/Vol] 0.85 mg/dL Normal 0.58-0.96 [facility] Comment on above: Order Comment: Speci men Type: BLOOD SPECIMENOrdering Facility: [facility] Address: [address] [place], [place] [address] Performed By: #### 2 4323-8 ####[facility] LABCLIA [id number] [place] [address] [place] Creatinine and Glomerular filtration rate.predicted panel (S/P/Bld) 91 mL/min/1.73m??? Normal >=60 [facility] Comment on above: Order Comment: Ar gonzalez Type: BLOOD SPECIMENOrdering Facility: [facility] Address: [address] [place] [address] Result Comment: Shannan mated Glomerular Filtration Rate (eGFR) is calculated using the 2020 CKD-EPI creatinine equation. This equation utilizes serum creatinine, sex, and age as parameters. The creatinine assay has traceable calibration to isotope dilution-mass spectrometry. Refer to KDIGO guidelines for clinical interpretation. In patients with unstable renal function, e.g. those with acute kidney injury, the eGFR may not accurately reflect actual GFR. Performed By: #### 2 4323-8 ####[facility] LABCLIA [id number] [place] [address] [place] Glucose [Mass/Vol] 89 mg/dL Normal 74-99 [facility] Comment on above: Order Comment: Ar gonzalez Type: BLOOD SPECIMENOrdering Facility: [facility] Address: [address] [place] [address] Result Comment: The [place] Diabetes Association (ADA) provides guidance for cutoff values for fasting glucose and random glucose. The ADA defines fasting as no caloric intake for at least 8 hours. Fasting plasma glucose results between 100 to 125 mg/dL indicate increased risk for diabetes (prediabetes). Fasting plasma glucose results greater than or equal to 126 mg/dL meet the criteria for diagnosis of diabetes. In the absence of unequivocal hyperglycemia, results should be confirmed by repeat testing. In a patient with classic symptoms of hyperglycemia or hyperglycemic crisis, random plasma glucose results greater than or equal to 200 mg/dL meet the criteria for diagnosis of diabetes. Reference: Standards of Medical Care in Diabetes 2016, [place] Diabetes Association. Diabetes Care. 2016.39(Suppl 1). Performed By: #### 2 4323-8 ####[facility] LABCLIA [id number] [place] [address] [place] Potassium [Moles/Vol] 4.4 mmol/L Normal 3.7-5.1 [facility] Comment on above: Order Comment: Speci men Type: BLOOD SPECIMENOrdering Facility: [facility] Address: [address] [place] [address] Performed By: #### 2 4323-8 ####[facility] LABCLIA [id number] [place] [address] [place] Protein [Mass/Vol] 6.9 g/dL Normal 6.3-8.0 [facility] Comment on above: Order Comment: Speci men Type: BLOOD SPECIMENOrdering Facility: [facility] Address: [address] [place] [address] Performed By: #### 2 4323-8 ####[facility] LABCLIA [id number] [place] [address] [place] Sodium [Moles/Vol] 136 mmol/L Normal 136-144 [facility] Comment on above: Order Comment: Speci men Type: BLOOD SPECIMENOrdering Facility: [facility] Address: [address] [place] [address] Performed By: #### 2 4323-8 ####[facility] LABCLIA [id number] [place] [address] [place] Urea nitrogen [Mass/Vol] 8 mg/dL Normal 7-21 [facility] Comment on above: Order Comment: Speci men Type: BLOOD SPECIMENOrdering Facility: [facility] Address: [address] [place] [address] Performed By: #### 2 4323-8 ####[facility] LABCLIA [id number] [address] [place] 03-11-2024 ALANA Telephone (OBGYWM) JOHANNA CARVER ([id number]) 1985 F Date Time Provider Department 03/11/24 LENA OLGUIN During your visit today, we recorded the following information about you: Lena Olguin APRN.CNP 03/11/2024 9:50 AM Signed Please let the patient know that her STD testing was negative with the exception for a reactive syphilis result. All titers are negative, which this could be a false reading and I would like her to repeat the blood work in 4 weeks. Lena Olguin APRN.Angeles Joseph RN 03/11/2024 10:20 AM Signed Patient notified. She states that this same thing has happened multiple times in the past years. Asking if she should be concerned or what could be causing that? She has previously had a rash she was concerned about that has now resolved. She last discussed this with you on 09/19/23 appointment. SHERRIE Diaz Renee, APRN.CNP 03/11/2024 10:25 AM Signed I believe it is probably a false positive result just as it has been in the past. Especially since all the titers are negative. If she does not want to repeat the testing I am okay with that but if she decides she wants to the order is in the system. Lena Olguin APRN.Angeles Joseph RN 03/11/2024 10:32 AM Signed Left message for patient to call office. SHERRIE Diaz Jennifer, RN 03/12/2024 9:20 AM Signed Patient notified. Beverly Foreman RN Allergies As of Date: 03/11/2024 Noted Allergy Reaction PENICILLINS 10/03/2005 4 - Hives SULFA (SULFONAMIDE ANTIBIOTICS) 05/31/2019 7 - Swelling Comments: Swelling of the tongue Date Reviewed: 01/05/2024 Reviewed by: Lena Olguin APRN.CNP - Fully Assessed Reason for Visit: Results [95] Primary Visit Diagnosis:Positive serological test result [R79.89] Order(s):SYPHILIS TREPONEMAL W/REFLEX [SQSYPHTX] Order #: [id number] FUTURE Prescriptions as of 03/12/2024 - baclofen 10 mg tablet Take 1 tablet by mouth two times a day. - amphetamine-dextroamphetamin e XR (ADDERALL XR) 15 mg capsule Take 1 capsule by mouth once daily for 30 days. Patient should start on January 12, 2024. - amphetamine-dextroamphetamin e XR (ADDERALL XR) 15 mg capsule Take 1 capsule by mouth once daily for 30 days. Patient should start on February 11, 2024. - amphetamine-dextroamphetamin e XR (ADDERALL XR) 15 mg capsule Take 1 capsule by mouth once daily for 30 days. Patient should start on March 12, 2024. - fluconazole (DIFLUCAN) 150 mg tablet Take 1 tablet today, then a 2nd tablet in 72 hours, and 3rd tablet in another 72 hours. - Collagenase powd - triamcinolone (KENALOG) 0.025 % cream Apply to affected area two times a day. - amphetamine-dextroamphetamin e XR (ADDERALL XR) 15 mg capsule Take 1 capsule by mouth once daily for 30 days. - amphetamine-dextroamphetamin e XR (ADDERALL XR) 15 mg capsule Take 1 capsule by mouth once daily for 30 days. Do not start before October 05, 2023. - baclofen 10 mg tablet 1 tab bid prn for spasms - spironolactone (ALDACTONE) 25 mg tablet Take 25 mg by mouth once daily. - Clindamycin Phosphate (CLEOCIN T) 1 % lotion Apply once a day as a spot treatment to the face - fluticasone (FLONASE) 50 mcg/actuation nasal spray Use 2 Sprays in each nostril once daily. Rinse mouth after use. - adapalene-benzoyl peroxide 0.3-2.5 % Apply to affected area three times a week. - ibuprofen (MOTRIN ORAL) Take 400 mg by mouth as needed. 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 ABNORMALITY OF GAIT [R26.9] 05/06/2005 DEPRESSIVE DISORDER NEC [F32.89] Unspecified Symptom Associated with Female Shanika*08/25/2009 Dyspareunia [[id number]] 08/25/2009 12/31/2021 Dysmenorrhea [N94.6] 08/25/2009 12/31/2021 Irregular menstrual cycle [N92.6] 08/25/2009 12/31/2021 Dysuria [R30.0] 08/25/2009 Trigonitis [N30.30] 10/10/2009 Microscopic Hematuria [R31.29] 10/10/2009 Spasm of muscle [M62.838] 11/28/2009 Depression [F32.A] 09/20/2010 Generalized anxiety disorder [F41.1] 07/09/2018 Post concussion syndrome [F07.81] 07/09/2018 Traumatic brain injury (HCC) [S06.9XAA] 12/20/2019 Attention deficit hyperactivity disorder (ADHD)*04/16/2023 Encounter Status:Closed by BEVERLY FOREMAN on 03/12/24 Normal [facility] BLOOD TB SCREENon 03-09-2024 M. tuberculosis tuberculin stim IFN-g Ql (Bld) Negative Normal [facility] Comment on above: Order Comment: Speci men Type: BLOOD SPECIMENOrdering Facility: [facility] Address: [address] [place] [address] Performed By: #### I NFTBP ####[facility] [id number] [place] [address] [place] MITOGEN MINUS NIL >9.92 Normal >=0.50 [facility] Comment on above: Order Comment: Speci men Type: BLOOD SPECIMENOrdering Facility: [facility] Address: [address] [place] [address] Performed By: #### I NFTBP ####[facility] LABIA [id number] [place] [address] [place] TB GAMMA INTERPRETATION Infection with M. tuberculosis complex is unlikely. If latent tuberculosis infection is highly suspected, a negative result does not rule out the infection. Specimens from immunocompromised patients and those <5 years of age may show false negative results. In case of a contact investigation, please repeat 8-12 weeks after a known exposure. Normal [facility] Comment on above: Order Comment: Speci men Type: BLOOD SPECIMENOrdering Facility: [facility] Address: [address] [place] [address] Performed By: #### I NFTBP ####[facility] LABCLIA [id number] [place] [address] [place] TB NIL 0.08 IU/mL Normal <=8.00 [facility] Comment on above: Order Comment: Speci men Type: BLOOD SPECIMENOrdering Facility: [facility] Address: [address] [place] [address] Performed By: #### I NFTBP ####[facility] LABCLIA [id number] [place] [address] [place] TB1 AG MINUS NIL 0.02 IU/mL Normal <0.35 [facility] Comment on above: Order Comment: Speci men Type: BLOOD SPECIMENOrdering Facility: [facility] Address: [address] [place] [address] Performed By: #### I NFTBP ####[facility] LABCLIA [id number] [place] [address] [place] TB2 AG MINUS NIL 0.02 IU/mL Normal <0.35 [facility] Comment on above: Order Comment: Speci men Type: BLOOD SPECIMENOrdering Facility: [facility] Address: [address] [place] [address] Performed By: #### I NFTBP ####[facility] LABCLIA [id number] [address] [place] 03-09-2024 FLORIN Telephone (INTMWS) JOHANNA CARVER ([id number]) 1985 F Date Time Provider Department 03/09/24 GABY SOLIS During your visit today, we recorded the following information about you: Tristen Bernard, SHERRIE 03/09/2024 11:29 AM Signed Pt asking if Antoinette can order a vit D lab for her. States she feels like it is low because her hair is really dry and she has no energy. Pended. Reports she had stopped taking vit D because her lab was high a few months ago. Reports she does take a MVI daily if she remembers it. Antoinette Anthony APRN.FLORI 03/10/2024 11:30 AM Signed We can discuss this at her upcoming appointment as other lab work may be indicated. Thank you Antoinette Anthony APRN.Nayla Millan RN 03/10/2024 11:39 AM Signed Pt called and is notified of providers message and instructions. Pt voices understanding. She wanted to let provider that she had a tooth infection and she has been on an antibiotic for the past 3 months. SHERRIE Deleon Joy, APRN.CNP 03/11/2024 7:54 AM Signed Noted Antoinette Anthony APRN.CNP Allergies As of Date: 03/09/2024 Noted Allergy Reaction PENICILLINS 10/03/2005 4 - Hives SULFA (SULFONAMIDE ANTIBIOTICS) 05/31/2019 7 - Swelling Comments: Swelling of the tongue Date Reviewed: 01/05/2024 Reviewed by: Lena Olguin APRN.CNP - Fully Assessed Reason for Visit: Patient Question [7957] Prescriptions as of 03/11/2024 - baclofen 10 mg tablet Take 1 tablet by mouth two times a day. - amphetamine-dextroamphetamin e XR (ADDERALL XR) 15 mg capsule Take 1 capsule by mouth once daily for 30 days. Patient should start on January 12, 2024. - amphetamine-dextroamphetamin e XR (ADDERALL XR) 15 mg capsule Take 1 capsule by mouth once daily for 30 days. Patient should start on February 11, 2024. - amphetamine-dextroamphetamin e XR (ADDERALL XR) 15 mg capsule Take 1 capsule by mouth once daily for 30 days. Patient should start on March 12, 2024. - fluconazole (DIFLUCAN) 150 mg tablet Take 1 tablet today, then a 2nd tablet in 72 hours, and 3rd tablet in another 72 hours. - Collagenase powd - triamcinolone (KENALOG) 0.025 % cream Apply to affected area two times a day. - amphetamine-dextroamphetamin e XR (ADDERALL XR) 15 mg capsule Take 1 capsule by mouth once daily for 30 days. - amphetamine-dextroamphetamin e XR (ADDERALL XR) 15 mg capsule Take 1 capsule by mouth once daily for 30 days. Do not start before October 05, 2023. - baclofen 10 mg tablet 1 tab bid prn for spasms - spironolactone (ALDACTONE) 25 mg tablet Take 25 mg by mouth once daily. - Clindamycin Phosphate (CLEOCIN T) 1 % lotion Apply once a day as a spot treatment to the face - fluticasone (FLONASE) 50 mcg/actuation nasal spray Use 2 Sprays in each nostril once daily. Rinse mouth after use. - adapalene-benzoyl peroxide 0.3-2.5 % Apply to affected area three times a week. - ibuprofen (MOTRIN ORAL) Take 400 mg by mouth as needed. Problem List As Of Date 03/09/2024 Noted Resolved HALLUX VALGUS [M20.10] 04/22/2005 CONGENITAL PES PLANUS [Q66.50] 04/22/2005 ABNORMALITY OF GAIT [R26.9] 05/06/2005 DEPRESSIVE DISORDER NEC [F32.89] Unspecified Symptom Associated with Female Shanika*08/25/2009 Dyspareunia [[id number]] 08/25/2009 12/31/2021 Dysmenorrhea [N94.6] 08/25/2009 12/31/2021 Irregular menstrual cycle [N92.6] 08/25/2009 12/31/2021 Dysuria [R30.0] 08/25/2009 Trigonitis [N30.30] 10/10/2009 Microscopic Hematuria [R31.29] 10/10/2009 Spasm of muscle [M62.838] 11/28/2009 Depression [F32.A] 09/20/2010 Generalized anxiety disorder [F41.1] 07/09/2018 Post concussion syndrome [F07.81] 07/09/2018 Traumatic brain injury (HCC) [S06.9XAA] 12/20/2019 Attention deficit hyperactivity disorder (ADHD)*04/16/2023 Encounter Status:Closed by ANTOINETTE ANTHONY on 03/11/24 Normal [facility] HBV surface Ag Ser Qlon 02-24 HBV surface Ag Ql (S) Negative Normal Negative [facility] Comment on above: Order Comment: Speci men Type: BLOOD SPECIMENOrdering Facility: [facility] Address: [address] [place] [address] Performed By: #### 7 3752-8, 10282-1, 73334-6, 27725-1, 5194-3 ####[facility] LABCLIA [id number] [place] [address] [place] HCV Ab Ser Qlon 03-09-2024 HCV Ab Ql (S) Negative Normal Negative [facility] Comment on above: Order Comment: Speci men Type: BLOOD SPECIMENOrdering Facility: [facility] Address: [address] [place] [address] Result Comment: The result suggests no evidence of active infection with Hepatitis C virus. Should recent infection be suspected, repeat testing may be considered 4-6 weeks after this draw. Performed By: #### 1 6128-1 ####[facility] LABCLIA [id number] [place] [address] [place] HIV 1+2 Ab IA Qlon HIV 1 and 2 Ab IA.rapid Nom (S/P/Bld) Normal [facility] Comment on above: Order Comment: Speci men Type: BLOOD SPECIMENOrdering Facility: [facility] Address: [address] [place] [address] Result Comment: Test not indicated. Performed By: #### 7 3752-8, 19049-6, 58894-7, 95853-1, 5194-3 ####[facility] LABCLIA [id number] [place] [address] [place] HIV 1+2 Ab+HIV1 p24 Ag IA Ql Non-Reactive Normal Nonreactive [facility] Comment on above: Order Comment: Speci men Type: BLOOD SPECIMENOrdering Facility: [facility] Address: [address] [place] [address] Performed By: #### 7 3752-8, 10624-3, 32584-1, 34273-4, 5194-3 ####[facility] [id number] [place] [address] [place] HIV immunoassay testing algorithm interpretation (S/P/Bld) [Interp] Normal [facility] Comment on above: Order Comment: Speci men Type: BLOOD SPECIMENOrdering Facility: [facility] Address: [address] [place] [address] Result Comment: No e vidence of HIV-1 or HIV-2 infection. Should recent infection be suspected, repeat testing may be considered 2-3 weeks after this draw. [place] Rev. Code 3701.243(E): This information has been disclosed to you from confidential records protected from disclosure by state law. ???You shall make no further disclosure of this information without the specific, written, and informed release of the individual to whom it pertains or as otherwise permitted by state law. A general authorization for the release of medical or other information is not sufficient for the purpose of the release of HIV test results or diagnoses. Performed By: #### 7 3752-8, 24240-3, 45560-1, 36060-3, 5194-3 ####[facility] [id number] [place] [address] [place] RPR Ser Qlon 03-09-2024 Reagin Ab RPR Ql (S) Non-Reactive Normal Nonreactive [facility] Comment on above: Order Comment: Speci men Type: BLOOD SPECIMENOrdering Facility: [facility] Address: [address] [place] [address] Result Comment: Rapi d plasma reagin (RPR) test detects non-treponemal antibodies. RPR may be reactive in a variety of infectious and non-infectious conditions. Correlation with clinical picture and with treponemal antibody results is required for final interpretation. Performed By: #### 7 3752-8, 22382-2, 23345-5, , 5194-3 ####[facility] LABIA [id number] [place] [id number] [place] Reagin and Treponema pallidu m IgG and IgM [Interp]on 03-09-2024 T. pallidum IgG+IgM IA Ql (S) Reactive Abnormal Nonreactive [facility] Comment on above: Order Comment: Speci men Type: BLOOD SPECIMENOrdering Facility: [facility] Address: [address] [place] [address] Performed By: #### 7 3752-8, 88488-9, , , 5194-3 ####[facility] LABIA [id number] [place] [address] [place] Reagin+T pallidum IgG+IgM Se rPl-Impon 03-09-2024 Reagin and Treponema pallidum IgG and IgM [Interp] The results suggest false positive Syphilis screen result. Repeat testing is suggested 2-3 weeks after this draw, should recent infection be suspected. Normal [facility] Comment on above: Order Comment: Speci men Type: BLOOD SPECIMENOrdering Facility: [facility] Address: [address] [place] [address] Performed By: #### 7 3752-8, 39380-1, , , 5194-3 ####[facility] LABIA [id number] [place] [address] [place] T pallidum IgG Ser Ql IFon 0 03-09-2024 T. pallidum IgG IF Ql (S) Negative Normal Negative [facility] Comment on above: Order Comment: Speci men Type: BLOOD SPECIMENOrdering Facility: [facility] Address: [address] [place] [address] Result Comment: A ne gative result indicates that none, or very low levels of antibody are present in the sample, but does not rule out a recent or current infection. Performed By: #### 7 3752-8, 14866-8, 62065-3, 31194-1, 5195-3 ####[facility] LABCLIA [id number] MARKCamelia [place] [id number] [facility] CNPNon 03-04-2024 CNPN Telephone (INTMWS) JOHANNA CARVER ([id number]) 1985 F Date Time Provider Department 03/04/24 GABY SOLIS INTMWS During your visit today, we recorded the following information about you: Santa Monson RN 03/04/2024 1:30 PM Addendum Patient calling to ask Antoinette Anthony CNP for a letter request. Patient reports she was employed by the [employer] and was released from employment due to being late. Patient states the reason she was late was due to not having her medications for a period of time due to insurance coverage reasons along with mandatory overtime. Patient asking if provider would write a letter that she could submit to her past employer stating that patient has diagnosis requiring certain medication (Adderall) and if she does not take the medication it can cause issues with memory, attention, focus and punctuality. Pt would like letter to include her diagnosis as well. Patient asking if letter can be sent to her via [employer]. No call back needed to patient if provider agreeable to complete this request. SHERRIE Prince Joy, APRN.CNP 03/05/2024 2:40 PM Signed Letter sent Antoinette Anthony APRN.CNP Allergies As of Date: 03/04/2024 Noted Allergy Reaction PENICILLINS 10/03/2005 4 - Hives SULFA (SULFONAMIDE ANTIBIOTICS) 05/31/2019 7 - Swelling Comments: Swelling of the tongue Date Reviewed: 01/05/2024 Reviewed by: Lena Olguin APRN.ENGINE TEST CELL TECHNICIAN - Fully Assessed Reason for Visit: Letter Request [Other] Prescriptions as of 03/05/2024 - baclofen 10 mg tablet Take 1 tablet by mouth two times a day. - amphetamine-dextroamphetamin e XR (ADDERALL XR) 15 mg capsule Take 1 capsule by mouth once daily for 30 days. Patient should start on January 12, 2024. - amphetamine-dextroamphetamin e XR (ADDERALL XR) 15 mg capsule Take 1 capsule by mouth once daily for 30 days. Patient should start on February 11, 2024. - amphetamine-dextroamphetamin e XR (ADDERALL XR) 15 mg capsule Take 1 capsule by mouth once daily for 30 days. Patient should start on March 12, 2024. - fluconazole (DIFLUCAN) 150 mg tablet Take 1 tablet today, then a 2nd tablet in 72 hours, and 3rd tablet in another 72 hours. - Collagenase powd - triamcinolone (KENALOG) 0.025 % cream Apply to affected area two times a day. - amphetamine-dextroamphetamin e XR (ADDERALL XR) 15 mg capsule Take 1 capsule by mouth once daily for 30 days. - amphetamine-dextroamphetamin e XR (ADDERALL XR) 15 mg capsule Take 1 capsule by mouth once daily for 30 days. Do not start before October 05, 2023. - baclofen 10 mg tablet 1 tab bid prn for spasms - spironolactone (ALDACTONE) 25 mg tablet Take 25 mg by mouth once daily. - Clindamycin Phosphate (CLEOCIN T) 1 % lotion Apply once a day as a spot treatment to the face - fluticasone (FLONASE) 50 mcg/actuation nasal spray Use 2 Sprays in each nostril once daily. Rinse mouth after use. - adapalene-benzoyl peroxide 0.3-2.5 % Apply to affected area three times a week. - ibuprofen (MOTRIN ORAL) Take 400 mg by mouth as needed. Problem List As Of Date 03/04/2024 Noted Resolved HALLUX VALGUS [M20.10] 04/22/2005 CONGENITAL PES PLANUS [Q66.50] 04/22/2005 ABNORMALITY OF GAIT [R26.9] 05/06/2005 DEPRESSIVE DISORDER NEC [F32.89] Unspecified Symptom Associated with Female Shanika*08/25/2009 Dyspareunia [[id number]] 08/25/2009 12/31/2021 Dysmenorrhea [N94.6] 08/25/2009 12/31/2021 Irregular menstrual cycle [N92.6] 08/25/2009 12/31/2021 Dysuria [R30.0] 08/25/2009 Trigonitis [N30.30] 10/10/2009 Microscopic Hematuria [R31.29] 10/10/2009 Spasm of muscle [M62.838] 11/28/2009 Depression [F32.A] 09/20/2010 Generalized anxiety disorder [F41.1] 07/09/2018 Post concussion syndrome [F07.81] 07/09/2018 Traumatic brain injury (HCC) [S06.9XAA] 12/20/2019 Attention deficit hyperactivity disorder (ADHD)*04/16/2023 Letter Text Encounter Status:Closed by ANTOINETTE ANTHONY on 03/05/24 [facility] 01-14-2024 [facility] Telephone (INTMWS) JOHANNA CARVER ([id number]) 1985 F Date Time Provider Department 01/14/24 GABY SOLIS INTWS During your visit today, we recorded the following information about you: Crystal Person LPN 01/14/2024 12:53 PM Signed Pt requesting orders to get a TB blood draw instead of 2 day TB test. Please advise pt when orders are in and she will come into the lab and get this done. SHABNAM Palmer Joy, APRN.FLORI 01/14/2024 1:01 PM Signed Order placed Thank you Antoinette Anthony APRN.Crystal Hui LPN 01/14/2024 2:07 PM Signed Spoke with pt and information listed below given. Pt verbalizes understanding. Crystal Person LPN Allergies As of Date: 01/14/2024 Noted Allergy Reaction PENICILLINS 10/03/2005 4 - Hives SULFA (SULFONAMIDE ANTIBIOTICS) 05/31/2019 7 - Swelling Comments: Swelling of the tongue Date Reviewed: 01/05/2024 Reviewed by: Lena Olguin APRN.ENGINE TEST CELL TECHNICIAN - Fully Assessed Reason for Visit: requesting TB blood test [Other] Primary Visit Diagnosis:Encounter for testing for latent tuberculosis [Z11.7] Order(s):BLOOD TB SCREEN [SQINFTBP] Order #: [id number] FUTURE Prescriptions as of 01/14/2024 - amphetamine-dextroamphetamin e XR (ADDERALL XR) 15 mg capsule Take 1 capsule by mouth once daily for 30 days. Patient should start on January 12, 2024. - amphetamine-dextroamphetamin e XR (ADDERALL XR) 15 mg capsule Take 1 capsule by mouth once daily for 30 days. Patient should start on February 11, 2024. - amphetamine-dextroamphetamin e XR (ADDERALL XR) 15 mg capsule Take 1 capsule by mouth once daily for 30 days. Patient should start on March 12, 2024. - fluconazole (DIFLUCAN) 150 mg tablet Take 1 tablet today, then a 2nd tablet in 72 hours, and 3rd tablet in another 72 hours. - Collagenase powd - triamcinolone (KENALOG) 0.025 % cream Apply to affected area two times a day. - amphetamine-dextroamphetamin e XR (ADDERALL XR) 15 mg capsule Take 1 capsule by mouth once daily for 30 days. - amphetamine-dextroamphetamin e XR (ADDERALL XR) 15 mg capsule Take 1 capsule by mouth once daily for 30 days. Do not start before October 05, 2023. - baclofen 10 mg tablet 1 tab bid prn for spasms - spironolactone (ALDACTONE) 25 mg tablet Take 25 mg by mouth once daily. - Clindamycin Phosphate (CLEOCIN T) 1 % lotion Apply once a day as a spot treatment to the face - fluticasone (FLONASE) 50 mcg/actuation nasal spray Use 2 Sprays in each nostril once daily. Rinse mouth after use. - adapalene-benzoyl peroxide 0.3-2.5 % Apply to affected area three times a week. - ibuprofen (MOTRIN ORAL) Take 400 mg by mouth as needed. Problem List As Of Date 01/14/2024 Noted Resolved HALLUX VALGUS [M20.10] 04/22/2005 CONGENITAL PES PLANUS [Q66.50] 04/22/2005 ABNORMALITY OF GAIT [R26.9] 05/06/2005 DEPRESSIVE DISORDER NEC [F32.89] Unspecified Symptom Associated with Female Shanika*08/25/2009 Dyspareunia [[id number]] 08/25/2009 12/31/2021 Dysmenorrhea [N94.6] 08/25/2009 12/31/2021 Irregular menstrual cycle [N92.6] 08/25/2009 12/31/2021 Dysuria [R30.0] 08/25/2009 Trigonitis [N30.30] 10/10/2009 Microscopic Hematuria [R31.29] 10/10/2009 Spasm of muscle [M62.838] 11/28/2009 Depression [F32.A] 09/20/2010 Generalized anxiety disorder [F41.1] 07/09/2018 Post concussion syndrome [F07.81] 07/09/2018 Traumatic brain injury (HCC) [S06.9XAA] 12/20/2019 Attention deficit hyperactivity disorder (ADHD)*04/16/2023 Encounter Status:Closed by CRYSTAL PERSON on 01/14/24 Normal [facility] BACTERIAL VAGINOSIS NAATon 1 03-06-2023 Lactobacillus crispatus+gasseri+ jensenii + Gardnerella vaginalis + Atopobium vaginae rRNA KORY+probe Ql (Vag fld) Negative Normal Negative for bacterial vaginosis [facility] Comment on above: Order Comment: Speci men Type: SWABOrdering Facility: [facility] Address: [address] [place] [address] Performed By: #### B ELIZABETH CHAKRABORTYTV ####[facility] LABCLIA [id number] [facility] [id number] [address] [place] C. trachomatis+N. gonorrhoea e DNA KORY+probe Ql (Unsp spec)on 01-05-2024 C. trachomatis rRNA KORY+probe Ql (Unsp spec) Negative Normal Negative for Chlamydia trachomatis by amplificaton [facility] Comment on above: Order Comment: Speci men Type: SWABOrdering Facility: [facility] Address: [address] [place] [address] Performed By: #### 3 6902-5 ####[facility] LABCLIA [id number] [place] [address] [place] N. gonorrhoeae rRNA KORY+probe Ql (Unsp spec) Negative Normal Negative for Neisseria gonorrhoeae by amplification [facility] Comment on above: Order Comment: Speci men Type: SWABOrdering Facility: [facility] Address: [address] [place] [address] Performed By: #### 3 6902-5 ####[facility] LABCLIA [id number] [place] [address] [place] TEZ/TRICHOMONAS NAATon 1 03-06-2023 C. glabrata RNA KORY+probe Ql (Vag fld) Negative Normal Negative for Tez glabrata [facility] Comment on above: Order Comment: Speci men Type: SWABOrdering Facility: [facility] Address: [address] [place] [address] Performed By: #### B VAMP, CVTV ####[facility] LABCLIA [id number] [place] [address] [place] Tez sp DNA KORY+probe Ql (Vag fld) Negative Normal Negative for Tez species [facility] Comment on above: Order Comment: Speci men Type: SWABOrdering Facility: [facility] Address: [address] [place] [address] Performed By: #### B VAMP, CVTV ####[facility] LABCLIA [id number] [place] [address] [place] T. vaginalis DNA KORY+probe Ql (Unsp spec) Negative Normal Negative for Trichomonas vaginalis by amplification [facility] Comment on above: Order Comment: Speci men Type: SWABOrdering Facility: [facility] Address: [address] [place] [address] Performed By: #### B PALMER CVTV ####[facility] LABCLIA [id number] [id number] [address] [place] CNOVon 01-05-2024 CNOV Office Visit (OBGYWM ) JOHANNA CARVER ([id number]) 1985 F Date Time Provider Department 01/05/24 11:00 AM LENA OLGUIN OBGYWM During your visit today, we recorded the following information about you: Blood pressure Last Period 122/76 11/25/23 Lena Olguin APRN.ENGINE TEST CELL TECHNICIAN 01/05/2024 12:10 PM Signed Patient declined paperhangerErika Spencer is a 38 year old who presents for an annual gynecologic exam without complaints. Menses: cycles every 30 days and 4-5 days of flow. Contraception: condoms, not currently HPV vaccine: Yes Last Pap: 01/13/2023 normal HPV: 01/07/2023 negative History of abnormal pap: Yes Last mammogram: 2018, additional views , neg ultrasound. Sexually active: not currently OB History T0 L2 SAB0 IAB0 Ectopic0 Multiple0 Live Births0 Bed Manager History LMP: 08/16/2023 (Within Weeks), Having periods Age at Menarche: Age at First : Age at Menopause: Bed Manager History Comments: Sexual Activity: Yes; Male Contraception: Condom PAST MEDICAL HISTORY Diagnosis Date ADHD (attention deficit hyperactivity disorder) Adjustment disorder with depressed mood was previously on Paxil/effexor, self dc'ed for weight gain. Anemia Concussion 2016 Depressive disorder, not elsewhere classified Environmental and seasonal allergies Eosinophilic esophagitis 2016 Esophageal dysmotility 02/27/2018 Foot fracture, left 2016 TBI (traumatic brain injury) (HCC) Unspecified symptom associated with female genital organs Pain in the vulvar area PAST SURGICAL HISTORY Procedure Laterality Date CORRECT BUNION,SIMPLE 2006 right EGD 1 or 2 times yearly REDUCTION OF LARGE BREAST 10/05/2008 Bilateral, uncomplciated RPR 1ST INGUN HRNA FULL TERM INFT <[address] FAMILY HISTORY Problem Relation Age of Onset Psychiatry Mother post depression Ischemic Heart Disease Maternal Grandfather Heart Paternal Grandmother Pacemaker Cancer Paternal Grandmother Ischemic Heart Disease Paternal Grandfather SOCIAL HISTORY Social History Tobacco Use Smoking status: Former Current packs/day: 0.00 Types: Cigarettes Quit date: 12/25/2016 Years since quittin.0 Smokeless tobacco: Never Tobacco comments: A few cigarettes per week. Vaping Use Vaping status: Never Used Substance Use Topics Alcohol use: Not Currently Comment: seldom Drug use: Never REVIEW OF SYSTEMS Abdomen: No abdominal pain, nausea, vomiting, diarrhea, or constipation. No bloating, early satiety, indigestion, or increased flatulence. Bladder: No dysuria, gross hematuria, urinary frequency, urinary urgency, or incontinence. Breast: No breast lumps, nipple d/c, overlying skin changes, redness or skin retraction. Allergies and current medication updated:Yes SENSITIVE EXAM: The sensitive examination was discussed with the Patient or Patient's Authorized Claims Agent Right Of Way. As applicable, any other physician, advance practice provider, medical student, or other health professional student that will be observing or involved in the sensitive examination for educational or training purposes was discussed with the Patient or Authorized Claims Agent Right Of Way. The Patient or Authorized Claims Agent Right Of Way has agreed to proceed with the sensitive examination. (Sensitive examination includes inspection and/or palpation of the breasts, pelvis, prostate and anorectal regions). EXAM: LMP 08/16/2023 GENERAL: pleasant, female in no apparent distress HEENT: Normocephalic, atraumatic, mucus membranes moist, and no lesions NECK: Supple, full range of motion, no adenopathy, and thyroid normal DERMATOLOGY: Normal, without lesions, non-icteric, and non-hirsute BREAST: soft, non-tender, symmetric, no dominant mass, normal nipple-areolar complex, no lymphadenopathy, and no nipple discharge CHEST: Normal inspiratory effort ABDOMEN: soft, non-tender, and no masses PELVIC: external genitalia normal, normal Bartholin's glands, urethra, [place]'s glands, no vulvar lesions, no cervical lesions, good vaginal support, physiologic discharge present, normal appearing perineal body and perianal region BIMANUAL: uterus normal size, shape and consistency, no adnexal masses, and non-tender NEURO: alert and oriented x3,exam grossly non-focal EXTREMITIES: normal ASSESSMENT/PLAN: 1) Health maintenance: Pap/HPV up to date. Mammogram starting age 40. Nutrition, exercise and routine health maintenance exams reviewed. Calcium/Vitamin D supplementation information provided. 2) Contraception: none. Contraceptive options reviewed and information provided. 3) STD screening: Accepted STD check for Gonorrhea and Chlamydia. 4) Follow up one year or sooner as needed 5) BV/yeast/trich ordered Lena Olguin APRN.CNP Allergies As of Date: 01/05/2024 Noted Allergy Reaction PENICILLINS 10/03/2005 4 - Hives S (more content not included)... Normal [facility] CNOVon 12-25-2023 CNOV Office Visit (INTMWS ) JOHANNA CARVER ([id number]) 1985 F Date Time Provider Department 12/25/23 1:00 PM ANTOINETTE ANTHONY INTNIELS During your visit today, we recorded the following information about you: Pulse Respiration Blood pressure 88/minute 16/minute 118/78 Antoinette Anthony APRN.CNP 12/25/2023 3:33 PM Signed CC: Patient presents with: Recheck: 3 month follow up HPI Johannamumtaz Carver is a 38 year old female who presents today for ADD follow up. Feels well controlled on current treatment and able to concentrate full throughout the day and able to complete tasks. 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 with shift work Alcohol use: does not drink any alcohol Drug use: No Suicidal Thoughts: No suicidal ideation, intent or plan REVIEW OF SYSTEMS General: no fevers, no chills, no night sweats, no recurrent infections, no change in appetite, no change in energy, and no significant changes in weight Respiratory: no cough, no wheezing, no shortness of breath, no hemoptysis Cardiovascular: no chest pain, no chest pressure, no palpitations, and no swelling PAST MEDICAL HISTORY Diagnosis Date ADHD (attention deficit hyperactivity disorder) Adjustment disorder with depressed mood was previously on Paxil/effexor, self ky'ed for weight gain. Anemia Concussion 2016 Depressive disorder, not elsewhere classified Environmental and seasonal allergies Eosinophilic esophagitis 2016 Esophageal dysmotility 02/27/2018 Foot fracture, left 2016 TBI (traumatic brain injury) ([facility]) Unspecified symptom associated with female genital organs Pain in the vulvar area PAST SURGICAL HISTORY Procedure Laterality Date CORRECT BUNION,SIMPLE 2006 right EGD 1 or 2 times yearly REDUCTION OF LARGE BREAST 10/05/2008 Bilateral, uncomplciated RPR 1ST INGUN HRNA FULL TERM INFT <6 MO RDC ALLERGIES Penicillins and Sulfa (Sulfonamide Antibiotics) MEDICATIONS fluconazole (DIFLUCAN) 150 mg tablet Take 1 tablet today, then a 2nd tablet in 72 hours, and 3rd tablet in another 72 hours. Collagenase powd triamcinolone (KENALOG) 0.025 % cream Apply to affected area two times a day. amphetamine-dextroamphetamin e XR (ADDERALL XR) 15 mg capsule Take 1 capsule by mouth once daily for 30 days. amphetamine-dextroamphetamin e XR (ADDERALL XR) 15 mg capsule Take 1 capsule by mouth once daily for 30 days. Do not start before October 05, 2023. amphetamine-dextroamphetamin e XR (ADDERALL XR) 15 mg capsule Take 1 capsule by mouth once daily for 30 days. Do not start before November 04, 2023. cholecalciferol, Vitamin D3, (VITAMIN D3) 1,250 mcg (50,000 unit) cap capsule Take 1 capsule by mouth one time a week. baclofen 10 mg tablet 1 tab bid prn for spasms spironolactone (ALDACTONE) 25 mg tablet Take 25 mg by mouth once daily. Clindamycin Phosphate (CLEOCIN T) 1 % lotion Apply once a day as a spot treatment to the face fluticasone (FLONASE) 50 mcg/actuation nasal spray Use 2 Sprays in each nostril once daily. Rinse mouth after use. adapalene-benzoyl peroxide 0.3-2.5 % Apply to affected area three times a week. ibuprofen (MOTRIN ORAL) Take 400 mg by mouth as needed. FAMILY HISTORY Problem Relation Age of Onset Psychiatry Mother post depression Ischemic Heart Disease Maternal Grandfather Heart Paternal Grandmother Pacemaker Cancer Paternal Grandmother Ischemic Heart Disease Paternal Grandfather Social History Tobacco Use Smoking status: Former Current packs/day: 0.00 Types: Cigarettes Quit date: 12/25/2016 Years since quittin.0 Smokeless tobacco: Never Tobacco comments: A few cigarettes per week. Vaping Use Vaping status: Never Used Substance Use Topics Alcohol use: Not Currently Comment: seldom Drug use: Never PHYSICAL EXAM BP 118/78 Pulse 99 Resp 16 LMP 08/16/2023 (Within Weeks) SpO2 99% General Appearance: well appearing, in no acute distress, alert Pysch: mood and affect broad and appropriate Eyes: conjunctiva pink and moist, no icterus, sclera white, non-injected Lungs: Lungs clear to auscultation. No wheezing, rhonchi, rales. Heart: RRR without murmur, gallop, or rubs. No ectopy Health maintenance reviewed with patient: Influenza Vaccine(1) due on 10/26/2023 Covid-19 Vaccine(2023- season) due on 10/26/2023 DTaP,Tdap,Td Vaccine(8 - Td or Tdap) due on 08/24/2025 Cervical Cancer Screening due on 01/03/2028 Hepatitis B Vaccine Completed HPV Vaccine Completed Hepatitis C Screening Completed HIV Screening Completed DATA REVIEWED: No new labs ASSESSMENT/PLAN: 1. Attention deficit hyperactivity disorder (ADHD), predominantly inattentive type - ICD9: 314.00, ICD10: F90.0 Controlled well with current treatment PDMP website checked and validated. All prescriptions have been APPROPRIATELY filled. No suspicious activity was identified. 12/25/2023 by Antoinette Grimes (more content not included)... Normal [facility] CNOVon 12-17-2023 CNOV Office Visit (WLCHFA ) JOHANNA CARVER ([id number]) 1985 F Date Time Provider Department 12/17/23 3:00 PM NARA OCAMPO During your visit today, we recorded the following information about you: Nara OcampoRAQUEL 12/17/2023 5:09 PM Signed Sensitive Note No show. Order placed for follow up appointments. Referring Provider: SELF [200] Allergies As of Date: 12/17/2023 Noted Allergy Reaction PENICILLINS 10/03/2005 4 - Hives SULFA (SULFONAMIDE ANTIBIOTICS) 05/31/2019 7 - Swelling Comments: Swelling of the tongue Date Reviewed: 09/19/2023 Reviewed by: Ilda Farnsworth MA - Fully Assessed Reason for Visit: No Show [1558] Primary Visit Diagnosis:No-show for appointment [Z91.199] Other Visit Diagnosis:Adjustment disorder with mixed anxiety and depressed mood [F43.23] Order(s):FOLLOW UP - WELLNESS [[id number]] Order #: [id number]: 1 STANDING Prescriptions as of 12/17/2023 - fluconazole (DIFLUCAN) 150 mg tablet Take 1 tablet today, then a 2nd tablet in 72 hours, and 3rd tablet in another 72 hours. - Collagenase powd - triamcinolone (KENALOG) 0.025 % cream Apply to affected area two times a day. - amphetamine-dextroamphetamin e XR (ADDERALL XR) 15 mg capsule Take 1 capsule by mouth once daily for 30 days. - amphetamine-dextroamphetamin e XR (ADDERALL XR) 15 mg capsule Take 1 capsule by mouth once daily for 30 days. Do not start before October 05, 2023. - amphetamine-dextroamphetamin e XR (ADDERALL XR) 15 mg capsule Take 1 capsule by mouth once daily for 30 days. Do not start before November 04, 2023. - cholecalciferol, Vitamin D3, (VITAMIN D3) 1,250 mcg (50,000 unit) cap capsule Take 1 capsule by mouth one time a week. - baclofen 10 mg tablet 1 tab bid prn for spasms - spironolactone (ALDACTONE) 25 mg tablet Take 25 mg by mouth once daily. - Clindamycin Phosphate (CLEOCIN T) 1 % lotion Apply once a day as a spot treatment to the face - fluticasone (FLONASE) 50 mcg/actuation nasal spray Use 2 Sprays in each nostril once daily. Rinse mouth after use. - adapalene-benzoyl peroxide 0.3-2.5 % Apply to affected area three times a week. - ibuprofen (MOTRIN ORAL) Take 400 mg by mouth as needed. Problem List As Of Date 12/17/2023 Noted Resolved HALLUX VALGUS [M20.10] 04/22/2005 CONGENITAL PES PLANUS [Q66.50] 04/22/2005 ABNORMALITY OF GAIT [R26.9] 05/06/2005 DEPRESSIVE DISORDER NEC [F32.89] Unspecified Symptom Associated with Female Shanika*08/25/2009 Dyspareunia [ATD1151] 08/25/2009 12/31/2021 Dysmenorrhea [N94.6] 08/25/2009 12/31/2021 Irregular menstrual cycle [N92.6] 08/25/2009 12/31/2021 Dysuria [R30.0] 08/25/2009 Trigonitis [N30.30] 10/10/2009 Microscopic Hematuria [R31.29] 10/10/2009 Spasm of muscle [M62.838] 11/28/2009 Depression [F32.A] 09/20/2010 Generalized anxiety disorder [F41.1] 07/09/2018 Post concussion syndrome [F07.81] 07/09/2018 Traumatic brain injury (HCC) [S06.9XAA] 12/20/2019 Attention deficit hyperactivity disorder (ADHD)*04/16/2023 Encounter Status:Closed by NARA OCAMPO on 12/17/23 [facility] 10-15-2023 [facility] Telephone (INTMWS) JOHANNA CARVER ([id number]) 1985 F Date Time Provider Department 10/15/23 ANTOINETTE ANTHONY During your visit today, we recorded the following information about you: Antoinette Anthony APRN.FLORI 10/15/2023 8:03 AM Signed Vit D remains high. How much vit d is she currently taking? Thank you Antoinette Anthony APRN.Nayla Millan RN 10/15/2023 11:43 AM Signed Pt called and is notified of providers results and question. Pt voices understanding and states she stopped taking all medications except her antibiotic and Adderall. She wanted to see if something was irritating her bladder, because she has been having a hard time urinating. She said she stopped taking everything 14 days ago. She said she is going to start them back up tomorrow after she finishes the antibiotic. She said she had called in to get a refill on the Vit D 50,000 units as she had run out, but she takes Chelle Fusion Woman's gummies. Pt does not know how much Vit D is in those. She states she felt better on the Vit D because she works nights and doesn't get any sun. I told her I don't know that Antoinette Anthony was going to want to have her go back on the Vit D with her level being elevated. Please call and advise. SHERRIE Deleon Joy, APRN.CNP 10/15/2023 1:26 PM Signed Do not restart prescription vit d at this time. Can continue with MVI containing vit d. We may need to restart a vit d supplement in the winter but we can discuss that at her next appointment. Thank you Antoinette Anthony APRN.Doris Gloria MA 10/15/2023 2:22 PM Signed Patient notified. Allergies As of Date: 10/15/2023 Noted Allergy Reaction PENICILLINS 10/03/2005 4 - Hives SULFA (SULFONAMIDE ANTIBIOTICS) 05/31/2019 7 - Swelling Comments: Swelling of the tongue Date Reviewed: 09/19/2023 Reviewed by: Ilda Farnsworth MA - Fully Assessed Reason for Visit: Results [95] Prescriptions as of 10/15/2023 - fluconazole (DIFLUCAN) 150 mg tablet Take 1 tablet today, then a 2nd tablet in 72 hours, and 3rd tablet in another 72 hours. - Collagenase powd - triamcinolone (KENALOG) 0.025 % cream Apply to affected area two times a day. - amphetamine-dextroamphetamin e XR (ADDERALL XR) 15 mg capsule Take 1 capsule by mouth once daily for 30 days. - amphetamine-dextroamphetamin e XR (ADDERALL XR) 15 mg capsule Take 1 capsule by mouth once daily for 30 days. Do not start before October 05, 2023. - amphetamine-dextroamphetamin e XR (ADDERALL XR) 15 mg capsule Take 1 capsule by mouth once daily for 30 days. Do not start before November 04, 2023. - cholecalciferol, Vitamin D3, (VITAMIN D3) 1,250 mcg (50,000 unit) cap capsule Take 1 capsule by mouth one time a week. - baclofen 10 mg tablet 1 tab bid prn for spasms - spironolactone (ALDACTONE) 25 mg tablet Take 25 mg by mouth once daily. - Clindamycin Phosphate (CLEOCIN T) 1 % lotion Apply once a day as a spot treatment to the face - fluticasone (FLONASE) 50 mcg/actuation nasal spray Use 2 Sprays in each nostril once daily. Rinse mouth after use. - adapalene-benzoyl peroxide 0.3-2.5 % Apply to affected area three times a week. - ibuprofen (MOTRIN ORAL) Take 400 mg by mouth as needed. Problem List As Of Date 10/15/2023 Noted Resolved HALLUX VALGUS [M20.10] 04/22/2005 CONGENITAL PES PLANUS [Q66.50] 04/22/2005 ABNORMALITY OF GAIT [R26.9] 05/06/2005 DEPRESSIVE DISORDER NEC [F32.89] Unspecified Symptom Associated with Female Shanika*08/25/2009 Dyspareunia [VCT3217] 08/25/2009 12/31/2021 Dysmenorrhea [N94.6] 08/25/2009 12/31/2021 Irregular menstrual cycle [N92.6] 08/25/2009 12/31/2021 Dysuria [R30.0] 08/25/2009 Trigonitis [N30.30] 10/10/2009 Microscopic Hematuria [R31.29] 10/10/2009 Spasm of muscle [M62.838] 11/28/2009 Depression [F32.A] 09/20/2010 Generalized anxiety disorder [F41.1] 07/09/2018 Post concussion syndrome [F07.81] 07/09/2018 Traumatic brain injury (HCC) [S06.9XAA] 12/20/2019 Attention deficit hyperactivity disorder (ADHD)*04/16/2023 Encounter Status:Closed by DORIS MAGAÑA on 10/15/23 Normal [facility] 25(OH)D3 SerPl-mCncon 2023 25-hydroxyvitamin D3 [Mass/Vol] 88.2 ng/mL High 31.0-80.0 [facility] Comment on above: Order Comment: Speci men Type: BLOOD SPECIMENOrdering Facility: [facility] Address: [address] [place] [address] Result Comment: Clas sification of 25 OH Vitamin D status: Deficiency/Insufficiency: < or = 30 ng/ml. Sufficiency/Optimal Levels: 31-80 ng/mL Toxicity: > 100 ng/mL. Test performed by chemiluminescent immunoassay. Performed By: #### 1 [id number] ####[facility] LABCLIA [id number] [place] [address] [place] 09-29-2023 [facility] Telephone (OBGYWM) JOHANNA CARVER ([id number]) 1985 F Date Time Provider Department 09/29/23 LENA OLGUIN During your visit today, we recorded the following information about you: Angeles Crowell, SHERRIE 09/29/2023 9:06 AM Signed Patient currently on antibiotic and now c/o yeast infection. States she gets these frequently with antibiotic use. C/o vaginal itching and burning. No discharge. Unable to take probiotic d/t stomach issues and she can't tolerate it. Requesting diflucan. Pharmacy correct. Please advise. SHERRIE Diaz Renee, APRN.FLORI 09/29/2023 9:35 AM Signed Diflucan sent. Lena Olguin APRN.Angeles Joseph RN 09/29/2023 9:48 AM Signed Patient asking if she should take more than one diflucan. She is currently on doxycycline then in a couple days will start the moxifloxacin for a week too. Only call back if more is sent to the pharmacy. SHERRIE Diaz Renee, APRN.FLORI 09/29/2023 10:19 AM Signed Diflucan x 3 doses sent in. Lena Olguin APRN.Angeles Joseph RN 09/29/2023 10:50 AM Signed Patient notified. Angeles Crowell RN Allergies As of Date: 09/29/2023 Noted Allergy Reaction PENICILLINS 10/03/2005 4 - Hives SULFA (SULFONAMIDE ANTIBIOTICS) 05/31/2019 7 - Swelling Comments: Swelling of the tongue Date Reviewed: 09/19/2023 Reviewed by: Ilda Farnsworth MA - Fully Assessed Reason for Visit: Vaginal Problem [117] Order(s):fluconazole (DIFLUCAN) 150 mg tabletTake 1 tablet today, then a 2nd tablet in 72 hours, and 3rd tablet in another 72 hours.Disp: 3 tabletRfl: 0 Prescriptions as of 09/29/2023 - fluconazole (DIFLUCAN) 150 mg tablet Take 1 tablet today, then a 2nd tablet in 72 hours, and 3rd tablet in another 72 hours. - doxycycline hyclate (VIBRAMYCIN) 100 mg capsule Take 1 capsule (100 mg) by mouth two times a day for 7 days. - moxifloxacin (AVELOX) 400 mg tablet Take 1 tablet by mouth once daily for 7 days. - Collagenase powd - triamcinolone (KENALOG) 0.025 % cream Apply to affected area two times a day. - amphetamine-dextroamphetamin e XR (ADDERALL XR) 15 mg capsule Take 1 capsule by mouth once daily for 30 days. - amphetamine-dextroamphetamin e XR (ADDERALL XR) 15 mg capsule Take 1 capsule by mouth once daily for 30 days. Do not start before October 05, 2023. - amphetamine-dextroamphetamin e XR (ADDERALL XR) 15 mg capsule Take 1 capsule by mouth once daily for 30 days. Do not start before November 04, 2023. - cholecalciferol, Vitamin D3, (VITAMIN D3) 1,250 mcg (50,000 unit) cap capsule Take 1 capsule by mouth one time a week. - baclofen 10 mg tablet 1 tab bid prn for spasms - spironolactone (ALDACTONE) 25 mg tablet Take 25 mg by mouth once daily. - Clindamycin Phosphate (CLEOCIN T) 1 % lotion Apply once a day as a spot treatment to the face - fluticasone (FLONASE) 50 mcg/actuation nasal spray Use 2 Sprays in each nostril once daily. Rinse mouth after use. - adapalene-benzoyl peroxide 0.3-2.5 % Apply to affected area three times a week. - ibuprofen (MOTRIN ORAL) Take 400 mg by mouth as needed. Problem List As Of Date 09/29/2023 Noted Resolved HALLUX VALGUS [M20.10] 04/22/2005 CONGENITAL PES PLANUS [Q66.50] 04/22/2005 ABNORMALITY OF GAIT [R26.9] 05/06/2005 DEPRESSIVE DISORDER NEC [F32.89] Unspecified Symptom Associated with Female Shanika*08/25/2009 Dyspareunia [ZNS3717] 08/25/2009 12/31/2021 Dysmenorrhea [N94.6] 08/25/2009 12/31/2021 Irregular menstrual cycle [N92.6] 08/25/2009 12/31/2021 Dysuria [R30.0] 08/25/2009 Trigonitis [N30.30] 10/10/2009 Microscopic Hematuria [R31.29] 10/10/2009 Spasm of muscle [M62.838] 11/28/2009 Depression [F32.A] 09/20/2010 Generalized anxiety disorder [F41.1] 07/09/2018 Post concussion syndrome [F07.81] 07/09/2018 Traumatic brain injury (HCC) [S06.9XAA] 12/20/2019 Attention deficit hyperactivity disorder (ADHD)*04/16/2023 Prescriptions ordered this encounter Disp Refills Start End FLUCONAZOLE 150 MG TABLET 1 ta* 0 09/29/2023 09/29/2023 Route: ORAL Sig: Take 1 tablet by mouth one time only for 1 dose. FLUCONAZOLE 150 MG TABLET 3 ta* 0 09/29/2023 Sig: Take 1 tablet today, then a 2nd tablet in 72 hours, and 3rd tablet in another 72 hours. Medications Discontinued During This Encounter Prescriptions - fluconazole (DIFLUCAN) 150 mg tablet (Discontinued) Take 1 tablet by mouth one time only for 1 dose. Encounter Status:Closed [facility]GEL[facility]LL [facility] ([id number]) 1985 F Date Time Provider Department 09/29/23 GABY SOLIS INTMWS During your visit today, we recorded the following information about you: Santa Monson RN 09/29/2023 10:53 AM Signed Patient reports she has been ordered to take Vit D3 50,000 units once a week, since 08/21/23. This dose was a reduction from her previous dose due to her last Vit D level being very high. Patient asking for refill and also asking if she needs to continue same dose of 50,000 units once a week? [facility]ses [facility]. Thank you. Antoinette Anthony APRN.FLORI 10/01/2023 7:31 AM Signed I worry that the once a week will still be too much as well. It has been 6 weeks since med change so I would like to get an updated level prior to sending new script. Thank you Antoinette Anthony APRN.Santa Gama, SHERRIE 10/01/2023 8:40 AM Signed Detailed message left for patient on her identified voicemail, of provider's message below. Informed patient to call office if has nay further questions. SHERRIE Prince Amanda, RN 10/03/2023 1:38 PM Signed Pt called and is notified of providers results and instructions. Pt voices understanding and will get lab work done. Nayla Balbuena RN Allergies As of Date: 09/29/2023 Noted Allergy Reaction PENICILLINS 10/03/2005 4 - Hives SULFA (SULFONAMIDE ANTIBIOTICS) 05/31/2019 7 - Swelling Comments: Swelling of the tongue Date Reviewed: 09/19/2023 Reviewed by: Ilda Farnsworth MA - Fully Assessed Reason for Visit: Patient Question [1470] Primary Visit Diagnosis:Medication management [Z79.899] Other Visit Diagnosis:Vitamin D deficiency [E55.9] Order(s):VITAMIN D 25 HYDROXY [SQVITD] Order #: [id number] FUTURE Prescriptions as of 10/03/2023 - fluconazole (DIFLUCAN) 150 mg tablet Take 1 tablet today, then a 2nd tablet in 72 hours, and 3rd tablet in another 72 hours. - doxycycline hyclate (VIBRAMYCIN) 100 mg capsule Take 1 capsule (100 mg) by mouth two times a day for 7 days. - moxifloxacin (AVELOX) 400 mg tablet Take 1 tablet by mouth once daily for 7 days. - Collagenase powd - triamcinolone (KENALOG) 0.025 % cream Apply to affected area two times a day. - amphetamine-dextroamphetamin e XR (ADDERALL XR) 15 mg capsule Take 1 capsule by mouth once daily for 30 days. - amphetamine-dextroamphetamin e XR (ADDERALL XR) 15 mg capsule Take 1 capsule by mouth once daily for 30 days. Do not start before October 05, 2023. - amphetamine-dextroamphetamin e XR (ADDERALL XR) 15 mg capsule Take 1 capsule by mouth once daily for 30 days. Do not start before November 04, 2023. - cholecalciferol, Vitamin D3, (VITAMIN D3) 1,250 mcg (50,000 unit) cap capsule Take 1 capsule by mouth one time a week. - baclofen 10 mg tablet 1 tab bid prn for spasms - spironolactone (ALDACTONE) 25 mg tablet Take 25 mg by mouth once daily. - Clindamycin Phosphate (CLEOCIN T) 1 % lotion Apply once a day as a spot treatment to the face - fluticasone (FLONASE) 50 mcg/actuation nasal spray Use 2 Sprays in each nostril once daily. Rinse mouth after use. - adapalene-benzoyl peroxide 0.3-2.5 % Apply to affected area three times a week. - ibuprofen (MOTRIN ORAL) Take 400 mg by mouth as needed. Problem List As Of Date 09/29/2023 Noted Resolved HALLUX VALGUS [M20.10] 04/22/2005 CONGENITAL PES PLANUS [Q66.50] 04/22/2005 ABNORMALITY OF GAIT [R26.9] 05/06/2005 DEPRESSIVE DISORDER NEC [F32.89] Unspecified Symptom Associated with Female Shanika*08/25/2009 Dyspareunia [VTE5252] 08/25/2009 12/31/2021 Dysmenorrhea [N94.6] 08/25/2009 12/31/2021 Irregular menstrual cycle [N92.6] 08/25/2009 12/31/2021 Dysuria [R30.0] 08/25/2009 Trigonitis [N30.30] 10/10/2009 Microscopic Hematuria [R31.29] 10/10/2009 Spasm of muscle [M62.838] 11/28/2009 Depression [F32.A] 09/20/2010 Generalized anxiety disorder [F41.1] 07/09/2018 Post concussion syndrome [F07.81] 07/09/2018 Traumatic brain injury (HCC) [S06.9XAA] 12/20/2019 Attention deficit hyperactivity disorder (ADHD)*04/16/2023 Encounter Status:Closed by SANAT MONSON on 10/01/23 [facility] [place] 09-24-2023 [facility] Telephone (OBGYWM) JOHANNA CARVER ([id number]) 1985 F Date Time Provider Department 09/24/23 LENA OLGUIN OBRAFAELWM During your visit today, we recorded the following information about you: Beverly Foreman RN 09/24/2023 8:17 AM Signed Patient viewed her urine mycoplasma results on Mychart. UR Parvum PCR detected. Patient is wanting an antibiotic. Patient wanted RM to know that she wants treatment. Aware RM returns to the office tomorrow. SHERRIE Betancur Renee, APRN.[facility] 09/26/2023 11:32 AM Signed Pt has not read her mychart msg and we try to contact her. Thanks, Lena Olguin APRN.Kaela Navas RN 09/26/2023 11:49 AM Signed Pt states she is no longer allergic to Doxycycline (removed from allergy list per Pt request) and would like to get this Rx sent to [facility] in [place]. SHERRIE Trivedi Renee, APRN.[facility] 09/26/2023 12:25 PM Signed Please let the pt know that I have sent in 2 atb. Take the Doxy for 7 days then follow it with the moxifloxacin for 7 days. Lena Olguin APRN.Lena Otto APRN.[facility] 09/26/2023 12:25 PM Signed Addended by: LENA OLGUIN on: 09/26/2023 12:25 PM Modules accepted: Orders Beverly Foreman RN 09/26/2023 1:20 PM Signed Patient notified. Beverly Foreman RN Allergies As of Date: 09/24/2023 Noted Allergy Reaction DELETED: DOXYCYCLINE HYCLATE 06/30/2017 16 - Unknown Comments: Foggy/unclear PENICILLINS 10/03/2005 4 - Hives SULFA (SULFONAMIDE ANTIBIOTICS) 05/31/2019 7 - Swelling Comments: Swelling of the tongue Date Reviewed: 09/19/2023 Reviewed by: Ilda Farnsworth MA - Fully Assessed Reason for Visit: Results [95] Order(s):doxycycline hyclate (VIBRAMYCIN) 100 mg capsuleTake 1 capsule (100 mg) by mouth two times a day for 7 days.Disp: 14 capsuleRfl: 0 moxifloxacin (AVELOX) 400 mg tabletTake 1 tablet by mouth once daily for 7 days.Disp: 7 tabletRfl: 0 Prescriptions as of 09/26/2023 - doxycycline hyclate (VIBRAMYCIN) 100 mg capsule Take 1 capsule (100 mg) by mouth two times a day for 7 days. - moxifloxacin (AVELOX) 400 mg tablet Take 1 tablet by mouth once daily for 7 days. - Collagenase powd - triamcinolone (KENALOG) 0.025 % cream Apply to affected area two times a day. - amphetamine-dextroamphetamin e XR (ADDERALL XR) 15 mg capsule Take 1 capsule by mouth once daily for 30 days. - amphetamine-dextroamphetamin e XR (ADDERALL XR) 15 mg capsule Take 1 capsule by mouth once daily for 30 days. Do not start before October 05, 2023. - amphetamine-dextroamphetamin e XR (ADDERALL XR) 15 mg capsule Take 1 capsule by mouth once daily for 30 days. Do not start before November 04, 2023. - cholecalciferol, Vitamin D3, (VITAMIN D3) 1,250 mcg (50,000 unit) cap capsule Take 1 capsule by mouth one time a week. - baclofen 10 mg tablet 1 tab bid prn for spasms - spironolactone (ALDACTONE) 25 mg tablet Take 25 mg by mouth once daily. - Clindamycin Phosphate (CLEOCIN T) 1 % lotion Apply once a day as a spot treatment to the face - fluticasone (FLONASE) 50 mcg/actuation nasal spray Use 2 Sprays in each nostril once daily. Rinse mouth after use. - adapalene-benzoyl peroxide 0.3-2.5 % Apply to affected area three times a week. - ibuprofen (MOTRIN ORAL) Take 400 mg by mouth as needed. Problem List As Of Date 09/24/2023 Noted Resolved HALLUX VALGUS [M20.10] 04/22/2005 CONGENITAL PES PLANUS [Q66.50] 04/22/2005 ABNORMALITY OF GAIT [R26.9] 05/06/2005 DEPRESSIVE DISORDER NEC [F32.89] Unspecified Symptom Associated with Female Shanika*08/25/2009 Dyspareunia [UVQ0050] 08/25/2009 12/31/2021 Dysmenorrhea [N94.6] 08/25/2009 12/31/2021 Irregular menstrual cycle [N92.6] 08/25/2009 12/31/2021 Dysuria [R30.0] 08/25/2009 Trigonitis [N30.30] 10/10/2009 Microscopic Hematuria [R31.29] 10/10/2009 Spasm of muscle [M62.838] 11/28/2009 Depression [F32.A] 09/20/2010 Generalized anxiety disorder [F41.1] 07/09/2018 Post concussion syndrome [F07.81] 07/09/2018 Traumatic brain injury (HCC) [S06.9XAA] 12/20/2019 Attention deficit hyperactivity disorder (ADHD)*04/16/2023 Prescriptions ordered this encounter Disp Refills Start End DOXYCYCLINE HYCLATE 100 MG CAPSULE 14 c* 0 09/26/2023 10/03/2023 Route: ORAL Sig: Take 1 capsule (100 mg) by mouth two times a day for 7 days. MOXIFLOXACIN 400 MG TABLET 7 ta* 0 09/26/2023 10/03/2023 Route: ORAL Sig: Take 1 tablet by mouth once daily for 7 days. Encounter Status:Closed by SCARLET GONZALEZ on 09/24/23 Normal [facility] Bacteria Ur Culton 4 Bacteria identified Cx Nom (U) ORGANISM ID: 1 10,000 -<50,000 CFU/ml Normal urogenital rodrigue Normal [facility] Comment on above: Performed By: #### 6 30-4 ####[facility] [id number] [address] OF [facility] CNOVon 09-19-2023 CNOV Office Visit (OBGYWM ) JOHANNA CARVER ([id number]) 1985 F Date Time Provider Department 09/19/23 2:15 PM LENA OLGUIN OBGYWM During your visit today, we recorded the following information about you: Blood pressure Weight 110/64 59 kg Lena Olguin APRN.ENGINE TEST CELL TECHNICIAN 09/19/2023 2:47 PM Signed Audiologist offered: Patient declines. Johanna Carver is a 38 year old female who presents for problem visit bladder pain and rash on buttock. HPI: Patient states that she is having some bladder pain mostly on the left side kidney pain. She does have an appointment with urology next week. She also complains of a rash on her left butt cheek that has been very itchy. OB History T0 L2 SAB0 IAB0 Ectopic0 Multiple0 Live Births0 Bed Manager History LMP: 08/16/2023 (Within Weeks), Having periods Age at Menarche: Age at First : Age at Menopause: Bed Manager History Comments: Sexual Activity: Yes; Male Contraception: Condom PAST MEDICAL HISTORY Diagnosis Date ADHD (attention deficit hyperactivity disorder) Adjustment disorder with depressed mood was previously on Paxil/effexor, self ky'ed for weight gain. Anemia Concussion 2016 Depressive disorder, not elsewhere classified Environmental and seasonal allergies Eosinophilic esophagitis 2016 Esophageal dysmotility 02/27/2018 Foot fracture, left 2016 TBI (traumatic brain injury) ([facility]) Unspecified symptom associated with female genital organs Pain in the vulvar area PAST SURGICAL HISTORY Procedure Laterality Date CORRECT BUNION,SIMPLE 2006 right EGD 1 or 2 times yearly REDUCTION OF LARGE BREAST 10/05/2008 Bilateral, uncomplciated RPR 1ST INGUN HRNA FULL TERM INFT <6 MO RDC FAMILY HISTORY Problem Relation Age of Onset Psychiatry Mother post depression Ischemic Heart Disease Maternal Grandfather Heart Paternal Grandmother Pacemaker Cancer Paternal Grandmother Ischemic Heart Disease Paternal Grandfather Social History Tobacco Use Smoking status: Former Types: Cigarettes Quit date: 12/25/2016 Years since quittin.7 Smokeless tobacco: Never Tobacco comments: A few cigarettes per week. Vaping Use Vaping Use: Never used Substance Use Topics Alcohol use: Not Currently Comment: seldom Drug use: Never Current Outpatient Medications Medication Sig Collagenase powd amphetamine-dextroamphetamin e XR (ADDERALL XR) 15 mg capsule Take 1 capsule by mouth once daily for 30 days. [START ON 10/05/2023] amphetamine-dextroamphetamin e XR (ADDERALL XR) 15 mg capsule Take 1 capsule by mouth once daily for 30 days. Do not start before October 05, 2023. [START ON 11/04/2023] amphetamine-dextroamphetamin e XR (ADDERALL XR) 15 mg capsule Take 1 capsule by mouth once daily for 30 days. Do not start before November 04, 2023. cholecalciferol, Vitamin D3, (VITAMIN D3) 1,250 mcg (50,000 unit) cap capsule Take 1 capsule by mouth one time a week. baclofen 10 mg tablet 1 tab bid prn for spasms spironolactone (ALDACTONE) 25 mg tablet Take 25 mg by mouth once daily. Clindamycin Phosphate (CLEOCIN T) 1 % lotion Apply once a day as a spot treatment to the face fluticasone (FLONASE) 50 mcg/actuation nasal spray Use 2 Sprays in each nostril once daily. Rinse mouth after use. adapalene-benzoyl peroxide 0.3-2.5 % Apply to affected area three times a week. ibuprofen (MOTRIN ORAL) Take 400 mg by mouth as needed. No current facility-administered medications for this visit. Allergies As of Date: 09/19/2023 Allergen Noted Reaction DOXYCYCLINE HYCLATE 06/30/2017 Unknown PENICILLINS 10/03/2005 Hives SULFA (SULFONAMIDE ANTIBIOTICS) 05/31/2019 Swelling Fully Assessed 09/19/2023 REVIEW OF SYSTEMS Bladder: No dysuria, gross hematuria, urinary frequency, urinary urgency, or incontinence. Expanded ROS: N/A Allergies and current medication updated:Yes EXAM: BP 110/64 Wt 130 lb (59.0kg) LMP 08/16/2023 GENERAL: pleasant, female in no apparent distress HEENT: Normocephalic, atraumatic, mucus membranes moist, and no lesions CHEST: Normal inspiratory effort PELVIC: external genitalia normal, normal Bartholin's glands, urethra, [place]'s glands, no vulvar lesions, no cervical lesions, good vaginal support, physiologic discharge present, normal appearing perineal body and perianal region, possible eczema rash on inner left butt cheek NEURO: alert and oriented x3,exam grossly non-focal EXTREMITIES: normal ASSESSMENT/PLAN: 1. Bladder pain - ICD9: 788.99, ICD10: R39.89 (primary diagnosis) Will notify patient of test results. - UROGENITAL UREAPLASMA AND MYCOPLASMA SPECIES BY PCR, FOR GENITAL, RECTAL, URINE SAMPLES - URINE CULTURE 2. Eczema, unspecified type - ICD9: 692.9, ICD10: L30.9 - Topical steriod tx with Rx for steriod cream/ointment- see orders - discussed skin care of rash - follow up if symptoms persist (more content not included)... Normal [facility] UA DIP, URINE (POC)on 2023 BILIRUBIN UA (POCT) Negative Negative [facility] CLARITY UA (POCT) [facility] COLOR UA (POCT) Yellow [facility] GLUCOSE UA (POCT) Negative Negative mg/dL [facility] Hemoglobin Ql (U) Negative Negative [facility] Interpretation and review of laboratory results Abnormal [facility] KETONE UA (POCT) Negative Negative mg/dL [facility] LEUKOCYTES UA (POCT) Trace Abnormal Negative [facility] NITRITE UA (POCT) Negative Negative [facility] PH UA (POCT) 7.0 4.5 - 8.0 [facility] Protein Ql (U) Negative Negative mg/dL [facility] SPECIFIC GRAVITY UA (POCT) >=1.030 1.005 - 1.030 [facility] UROBILINOGEN UA (POCT) 0.2 Normal E.U./dL [facility] Location:[facility], [address], [place], [id number] [place] [address] POINT OF CARE [facility] UROGENITAL UREAPLASMA AND MY COPLASMA SPECIES BY PCR, FOR GENITAL, RECTAL, URINE SAMPLESon 09-19-2023 M GENITALIUM PCR Not detected Normal [facility] [place] Comment on above: Order Comment: Speci men Type: URINE SPECIMENOrdering Facility: [facility] Address: [address] [place] [id number] Result Comment: INTE RPRETIVE INFORMATION: Urogenital Ureaplasma and Mycoplasma Species by PCR A negative result does not rule out the presence of PCR inhibitors in the patient specimen or test-specific nucleic acid in concentrations below the level of detection by this test. This test was developed and its performance characteristics determined by [facility]. It has not been cleared or approved by the [place] Food and Drug Administration. This test was performed in a CLIA certified laboratory and is intended for clinical purposes. Performed By: [facility] [address] [place] [address] Or Rn: Billy Pratt MD, PhD CLIA Number: [id number] Performed By: #### U RMPCR ####[facility] [id number] [place] [address] MYCOPLAS HOMINIS PCR Not detected Normal [facility] Comment on above: Order Comment: Speci men Type: URINE SPECIMENOrdering Facility: [facility] Address: [address] [place] [address] Performed By: #### U RMPCR ####[facility] [id number] [place] [address] UR PARVUM PCR Detected Abnormal [facility] Comment on above: Order Comment: Speci men Type: URINE SPECIMENOrdering Facility: [facility] Address: [address] [place] [address] Performed By: #### U RMPCR ####[facility] [id number] [place] [address] UR UREALYTICUM PCR Not detected Normal [facility] Comment on above: Order Comment: Speci men Type: URINE SPECIMENOrdering Facility: [facility] Address: [address] [place] [address] Performed By: #### U RMPCR ####[facility] [id number] [place] [address] UR/MYCO SOURCE Urine Normal [facility] Comment on above: Order Comment: Speci men Type: URINE SPECIMENOrdering Facility: [facility] Address: [address] [place] [address] Performed By: #### U RMPCR ####[facility] [id number] [place] [address] BACTERIAL VAGINOSIS NAATon 0 09-05-2023 Lactobacillus crispatus+gasseri+ jensenii + Gardnerella vaginalis + Atopobium vaginae rRNA KORY+probe Ql (Vag fld) Negative Normal Negative for bacterial vaginosis [facility] Comment on above: Order Comment: Speci men Type: SWABOrdering Facility: [facility] Address: [address] [place] [address] Performed By: #### 3 6902-5, BVAMP ####[facility] LABCLIA [id number] [place] [address] [place] C. trachomatis+N. gonorrhoea e DNA KORY+probe Ql (Unsp spec)on 09-05-2023 C. trachomatis rRNA KORY+probe Ql (Unsp spec) Negative Normal Negative for Chlamydia trachomatis by amplificaton [facility] Comment on above: Order Comment: Speci men Type: SWABOrdering Facility: [facility] Address: [address] [place] [address] Performed By: #### 3 6902-5, BVAMP ####[facility]IA [id number] [place] [address] [place] N. gonorrhoeae rRNA KORY+probe Ql (Unsp spec) Negative Normal Negative for Neisseria gonorrhoeae by amplification [facility] Comment on above: Order Comment: Speci men Type: SWABOrdering Facility: [facility] Address: [address] [place] [address] Performed By: #### 3 6902-5, BVAMP ####[facility]CLIA [id number] [place] [address] [place] TEZ/TRICHOMONAS NAATon 0 09-05-2023 C. glabrata RNA KORY+probe Ql (Vag fld) Negative Normal Negative for Tez glabrata [facility] Comment on above: Order Comment: Speci men Type: SWABOrdering Facility: [facility] Address: [address] [place] [address] Performed By: #### C VTV ####[facility]CLIA [id number] [place] [address] [place] Tez sp DNA KORY+probe Ql (Vag fld) Negative Normal Negative for Tez species [facility] Comment on above: Order Comment: Speci men Type: SWABOrdering Facility: [facility] Address: [address] [place] [address] Performed By: #### C VTV ####[facility] [id number] [address] [place] T. vaginalis DNA KORY+probe Ql (Unsp spec) Negative Normal Negative for Trichomonas vaginalis by amplification [facility] Comment on above: Order Comment: Speci men Type: SWABOrdering Facility: [facility] Address: [address] [place] [address] Performed By: #### C VTV ####[facility]CLIA [id number] [address] [place] CNOVon 09-05-2023 CNOV Office Visit (OBGYWM ) JOHANNA CARVER ([id number]) 1985 F Date Time Provider Department 09/05/23 12:45 PM LENA OLGUIN OBGYWM During your visit today, we recorded the following information about you: Pulse Respiration Blood pressure 96/minute 12/minute 100/62 Lena Olguin APRN.ENGINE TEST CELL TECHNICIAN 09/05/2023 1:34 PM Signed Audiologist offered: Patient declines. Johanna Carver is a 38 year old female who presents for STD testing HPI: new partner recently and would like STD testing done. OB History T0 L2 SAB0 IAB0 Ectopic0 Multiple0 Live Births0 Bed Manager History LMP: 08/16/2023 (Within Weeks), Having periods Age at Menarche: Age at First : Age at Menopause: Bed Manager History Comments: Sexual Activity: Yes; Male Contraception: Condom PAST MEDICAL HISTORY Diagnosis Date ADHD (attention deficit hyperactivity disorder) Adjustment disorder with depressed mood was previously on Paxil/effexor, self dc'ed for weight gain. Anemia Concussion 2016 Depressive disorder, not elsewhere classified Environmental and seasonal allergies Eosinophilic esophagitis 2016 Esophageal dysmotility 02/27/2018 Foot fracture, left 2016 TBI (traumatic brain injury) ([facility]) Unspecified symptom associated with female genital organs Pain in the vulvar area PAST SURGICAL HISTORY Procedure Laterality Date CORRECT BUNION,SIMPLE 2006 right EGD 1 or 2 times yearly REDUCTION OF LARGE BREAST 10/05/2008 Bilateral, uncomplciated RPR 1ST INGUN HRNA FULL TERM INFT <[address] FAMILY HISTORY Problem Relation Age of Onset Psychiatry Mother post depression Ischemic Heart Disease Maternal Grandfather Heart Paternal Grandmother Pacemaker Cancer Paternal Grandmother Ischemic Heart Disease Paternal Grandfather Social History Tobacco Use Smoking status: Former Types: Cigarettes Quit date: 12/25/2016 Years since quittin.6 Smokeless tobacco: Never Tobacco comments: A few cigarettes per week. Vaping Use Vaping Use: Never used Substance Use Topics Alcohol use: Yes Comment: seldom Drug use: No Current Outpatient Medications Medication Sig amphetamine-dextroamphetamin e XR (ADDERALL XR) 15 mg capsule Take 1 capsule by mouth once daily for 30 days. [START ON 10/05/2023] amphetamine-dextroamphetamin e XR (ADDERALL XR) 15 mg capsule Take 1 capsule by mouth once daily for 30 days. Do not start before October 05, 2023. [START ON 11/04/2023] amphetamine-dextroamphetamin e XR (ADDERALL XR) 15 mg capsule Take 1 capsule by mouth once daily for 30 days. Do not start before November 04, 2023. cholecalciferol, Vitamin D3, (VITAMIN D3) 1,250 mcg (50,000 unit) cap capsule Take 1 capsule by mouth one time a week. baclofen 10 mg tablet 1 tab bid prn for spasms spironolactone (ALDACTONE) 25 mg tablet Clindamycin Phosphate (CLEOCIN T) 1 % lotion Apply once a day as a spot treatment to the face fluticasone (FLONASE) 50 mcg/actuation nasal spray Use 2 Sprays in each nostril once daily. Rinse mouth after use. adapalene-benzoyl peroxide 0.3-2.5 % Apply to affected area three times a week. ibuprofen (MOTRIN ORAL) Take 400 mg by mouth as needed. No current facility-administered medications for this visit. Allergies As of Date: 09/05/2023 Allergen Noted Reaction DOXYCYCLINE HYCLATE 06/30/2017 Unknown PENICILLINS 10/03/2005 Hives SULFA (SULFONAMIDE ANTIBIOTICS) 05/31/2019 Swelling Fully Assessed 09/05/2023 REVIEW OF SYSTEMS Bladder: No dysuria, gross hematuria, urinary frequency, urinary urgency, +stress incontinence. Expanded ROS: N/A Allergies and current medication updated:Yes EXAM: LMP 08/16/2023 GENERAL: pleasant, female in no apparent distress HEENT: Normocephalic, atraumatic, mucus membranes moist, and no lesions CHEST: Normal inspiratory effort PELVIC: external genitalia normal, normal Bartholin's glands, urethra, [place]'s glands, no vulvar lesions, no cervical lesions, good vaginal support, physiologic discharge present, normal appearing perineal body and perianal region BIMANUAL: deferred NEURO: alert and oriented x3,exam grossly non-focal EXTREMITIES: normal ASSESSMENT/PLAN: 1. Screening for STD (sexually transmitted disease) - ICD9: V74.5, ICD10: Z11.3 Will notify patient of test results. - GONORRHEA/CHLAMYDIA NAAT - SYPHILIS TOTAL W/REFLEX - HIV 1/2 COMBO WITH REFLEX TO DIFFERENTIATION - HEPATITIS C ANTIBODY IA WITH CONFIRMATION - HEPATITIS B SURFACE ANTIGEN - TEZ/TRICHOMONAS NAAT - BACTERIAL VAGINOSIS NAAT Lena Olguin APRN.FLORI Medical Decision Making: Problems: Moderate: New problem with uncertain prognosis Data: Unique test(s) ordered: 3+ Risk: Low: Low risk from testing/treatment Medical Decision Making Level: 4 - Moderate Allergies As of Date: 09/05/2023 Noted Allergy Reaction DOXYCYCLINE HYCLATE 06/30/2017 16 - Unk (more content not included)... Normal [facility] CNOV Office Visit (INTMWS ) JOHANNA CARVER ([id number]) 1985 F Date Time Provider Department 09/05/23 8:20 AM ANTOINETTE ANTHONY During your visit today, we recorded the following information about you: Pulse Respiration Blood pressure 88/minute 16/minute 118/78 Antoinette Anthony APRN.ENGINE TEST CELL TECHNICIAN 09/05/2023 9:21 AM Signed CC: Patient presents with: Recheck: Medication follow up HPI Johanna Carver is a 38 year old female who presents today for ADD follow up. Had Adderall increased 2 weeks ago. 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 Patient was to monitor HR at home with increased dose and bring in readings. She did not work last night. HR at home has been consistently 70s-80s with the increased dose. Has had improved concentration during work and at home with ability to completed tasks efficiently. Denies any headaches, palpitations, shortness of breath, chest pain, dizziness, or new concerns. REVIEW OF SYSTEMS See HPI PAST MEDICAL HISTORY Diagnosis Date ADHD (attention deficit hyperactivity disorder) Adjustment disorder with depressed mood was previously on Paxil/effexor, self dc'ed for weight gain. Anemia Concussion 2016 Depressive disorder, not elsewhere classified Environmental and seasonal allergies Eosinophilic esophagitis 2016 Esophageal dysmotility 02/27/2018 Foot fracture, left 2016 TBI (traumatic brain injury) (HCC) Unspecified symptom associated with female genital organs Pain in the vulvar area PAST SURGICAL HISTORY Procedure Laterality Date CORRECT BUNION,SIMPLE 2006 right EGD 1 or 2 times yearly REDUCTION OF LARGE BREAST 10/05/2008 Bilateral, uncomplciated RPR 1ST INGUN HRNA FULL TERM INFT <6 MO RDC ALLERGIES Doxycycline Hyclate, Penicillins, and Sulfa (Sulfonamide Antibiotics) MEDICATIONS cholecalciferol, Vitamin D3, (VITAMIN D3) 1,250 mcg (50,000 unit) cap capsule Take 1 capsule by mouth one time a week. amphetamine-dextroamphetamin e XR (ADDERALL XR) 5 mg capsule Take 1 capsule by mouth once daily for 14 days. Take with 10mg to equal 15mg baclofen 10 mg tablet 1 tab bid prn for spasms spironolactone (ALDACTONE) 25 mg tablet amphetamine-dextroamphetamin e XR (ADDERALL XR) 10 mg capsule Take 1 capsule by mouth once daily for 30 days. Do not start before August 07, 2023. amphetamine-dextroamphetamin e XR (ADDERALL XR) 10 mg capsule Take 1 capsule by mouth once daily for 30 days. Do not start before July 08, 2023. amphetamine-dextroamphetamin e XR (ADDERALL XR) 10 mg capsule Take 1 capsule by mouth once daily for 30 days. Do not start before May 09, 2023. Clindamycin Phosphate (CLEOCIN T) 1 % lotion Apply once a day as a spot treatment to the face amphetamine-dextroamphetamin e XR (ADDERALL XR) 10 mg capsule Take 1 capsule by mouth once daily for 30 days. Do not start before February 08, 2023. fluticasone (FLONASE) 50 mcg/actuation nasal spray Use 2 Sprays in each nostril once daily. Rinse mouth after use. adapalene-benzoyl peroxide 0.3-2.5 % Apply to affected area three times a week. ibuprofen (MOTRIN ORAL) Take 400 mg by mouth as needed. FAMILY HISTORY Problem Relation Age of Onset Psychiatry Mother post depression Ischemic Heart Disease Maternal Grandfather Heart Paternal Grandmother Pacemaker Cancer Paternal Grandmother Ischemic Heart Disease Paternal Grandfather Social History Tobacco Use Smoking status: Former Types: Cigarettes Quit date: 12/25/2016 Years since quittin.6 Smokeless tobacco: Never Tobacco comments: A few cigarettes per week. Vaping Use Vaping Use: Never used Substance Use Topics Alcohol use: Yes Comment: seldom Drug use: No PHYSICAL EXAM BP 118/78 Pulse 88 Resp 16 LMP 08/16/2023 (Within Weeks) SpO2 100% Appearance: well dressed well groomed, cooperative, and pleasant Behavior: good eye contact Speech: normal and fluent and coherent Mood: happy Affect: appropriate Perceptions: none Thought process: goal directed Thought Content: normal Intelligence level: normal Insight: good Judgment: good Eyes: conjunctiva pink and moist, no icterus, sclera white, non-injected Lungs: Lungs clear to auscultation. No wheezing, rhonchi, rales. Heart: RRR without murmur, gallop, or rubs. No ectopy ASSESSMENT/PLAN: 1. Attention deficit disorder, unspecified hyperactivity presence - ICD9: 314.00, ICD10: F98.8 Tolerating well with normal HR. Also is effective Follow up in 3 months - DEXTROAMPHETAMINE-AMPHETAMIN E ER 15 MG 24HR CAPSULE,EXTEND RELEASE - DEXTROAMPHETAMINE-AMPHETAMIN E ER 15 MG 24HR CAPSULE,EXTEND RELEASE - DEXTROAMPHETAMINE-AMPHETAMIN E ER 15 MG 24HR CAPSULE,EXTEND RELEASE PDMP website checked and validated. All prescriptions have been APPROPRIATELY filled. No suspicious activity was iden (more content not included)... Normal [facility] HBV surface Ag Ser Qlon 07 HBV surface Ag Ql (S) Negative Normal Negative [facility] Comment on above: Order Comment: Speci men Type: BLOOD SPECIMENOrdering Facility: [facility] Address: [address] [place] [address] Performed By: #### 3 1201-7, 5195-3, 95721-3 ####[facility] LABCLIA [id number] [place] [address] [place] HCV Ab Ser Qlon 09-05-2023 HCV Ab Ql (S) Negative Normal Negative [facility] Comment on above: Order Comment: Speci men Type: BLOOD SPECIMENOrdering Facility: [facility] Address: [address] [place] [address] Result Comment: The result suggests no evidence of active infection with Hepatitis C virus. Should recent infection be suspected, repeat testing may be considered 4-6 weeks after this draw. Performed By: #### 1 6128-1 ####[facility] LABIA [id number] [place] [address] [place] HIV 1+2 Ab IA Qlon 4 HIV 1 and 2 Ab IA.rapid Nom (S/P/Bld) Normal [facility] Comment on above: Order Comment: Speci men Type: BLOOD SPECIMENOrdering Facility: [facility] Address: [address] [place] [address] Result Comment: Test not indicated. Performed By: #### 3 1201-7, 5195-3, 40430-8 ####[facility] LABCLIA [id number] [place] [address] [place] HIV 1+2 Ab+HIV1 p24 Ag IA Ql Non-Reactive Normal Nonreactive [facility] Comment on above: Order Comment: Speci men Type: BLOOD SPECIMENOrdering Facility: [facility] Address: [address] [place] [address] Performed By: #### 3 1201-7, 5195-3, 78595-7 ####[facility] LABCLIA [id number] [place] [address] [place] HIV immunoassay testing algorithm interpretation (S/P/Bld) [Interp] Normal [facility] Comment on above: Order Comment: Speci men Type: BLOOD SPECIMENOrdering Facility: [facility] Address: [address] [place] [address] Result Comment: No e vidence of HIV-1 or HIV-2 infection. Should recent infection be suspected, repeat testing may be considered 2-3 weeks after this draw. [place] Rev. Code 3701.243(E): This information has been disclosed to you from confidential records protected from disclosure by state law. ???You shall make no further disclosure of this information without the specific, written, and informed release of the individual to whom it pertains or as otherwise permitted by state law. A general authorization for the release of medical or other information is not sufficient for the purpose of the release of HIV test results or diagnoses. Performed By: #### 3 1201-7, 5195-3, 55082-6 ####[facility] LABIA [id number] [place] [address] [place] Reagin and Treponema pallidu m IgG and IgM [Interp]on 09-05-2023 T. pallidum IgG+IgM IA Ql (S) Non-Reactive Normal Nonreactive [facility] Comment on above: Order Comment: Speci men Type: BLOOD SPECIMENOrdering Facility: [facility] Address: [address] [place] [address] Performed By: #### 3 1201-7, 5195-3, 71485-8 ####[facility] LABIA [id number] [place] [address] [place] Reagin+T pallidum IgG+IgM Se rPl-Impon 09-05-2023 Reagin and Treponema pallidum IgG and IgM [Interp] Cannot exclude recent Treponemal infection if specimen collected within 7-10 days after appearance of suspect lesions or 2-3 weeks after an exposure. Clinical correlation is required. Normal [facility] Comment on above: Order Comment: Speci men Type: BLOOD SPECIMENOrdering Facility: [facility] Address: [address] [place] [address] Performed By: #### 3 1201-7, 5195-3, 53838-1 ####[facility] LABCLIA [id number] [place] [address] [place] UA DIP, URINE (POC)on 2023 BILIRUBIN UA (POCT) Negative Negative [facility] CLARITY UA (POCT) Slightly Cloudy Cl [facility] COLOR UA (POCT) Dark yellow [facility] GLUCOSE UA (POCT) Negative Negative mg/dL [facility] Hemoglobin Ql (U) Negative Negative [facility] Interpretation and review of laboratory results Abnormal [facility] KETONE UA (POCT) Negative Negative mg/dL [facility] LEUKOCYTES UA (POCT) Negative Negative [facility] NITRITE UA (POCT) Negative Negative [facility] PH UA (POCT) 8.5 Abnormal 4.5 - 8.0 [facility] Protein Ql (U) Trace Abnormal Negative mg/dL [facility] SPECIFIC GRAVITY UA (POCT) 1.020 1.005 - 1.030 [facility] UROBILINOGEN UA (POCT) 0.2 Normal E.U./dL [facility] Location:[facility], [address], [place], [address] [facility] POINT OF CARE [facility] CNOVon 08-26-2023 CNOV Office Visit (UCWSTR ) JOHANNA CARVER ([id number]) 1985 F Date Time Provider Department 08/26/23 1:15 PM ECTOR BAUTISTA [facility] During your visit today, we recorded the following information about you: Temperature Pulse Respiration Blood pressure 98.3 degrees 105/minute 18/minute 110/80 Last Period 08/16/23 Etcor Bautista, SCREEN EXAMINER.ENGINE TEST CELL TECHNICIAN 08/26/2023 1:39 PM Signed Subjective HPI Nontoxic-appearing female presents urgent care chief complaint sore throat nasal drainage fatigue cough. Duration of symptoms 5 days. Associated symptoms listed above. Daughter sick similar signs symptoms. No OTC medication use today. Denies any significant pain. Denies any fever body aches chills productive cough chest pain shortness of breath pleuritic pain hemoptysis nausea vomiting abdominal pain change in bowel or bladder habits. Past medical history prescription medication use and allergies reviewed. .Patient presents with: Cough: Sore throat, drainage, nasal congestion, fatigue, x 5 days PAST MEDICAL HISTORY Diagnosis Date ADHD (attention deficit hyperactivity disorder) Adjustment disorder with depressed mood was previously on Paxil/effexor, self ky'ed for weight gain. Anemia Concussion 2016 Depressive disorder, not elsewhere classified Environmental and seasonal allergies Eosinophilic esophagitis 2016 Esophageal dysmotility 02/27/2018 Foot fracture, left 2016 TBI (traumatic brain injury) ([facility]) Unspecified symptom associated with female genital organs Pain in the vulvar area PAST SURGICAL HISTORY Procedure Laterality Date CORRECT BUNION,SIMPLE 2005 right EGD 1 or 2 times yearly REDUCTION OF LARGE BREAST 10/05/2008 Bilateral, uncomplciated RPR 1ST INGUN HRNA FULL TERM INFT <6 MO RDC ALLERGIES Doxycycline Hyclate, Penicillins, and Sulfa (Sulfonamide Antibiotics) MEDICATIONS cholecalciferol, Vitamin D3, (VITAMIN D3) 1,250 mcg (50,000 unit) cap capsule Take 1 capsule by mouth one time a week. amphetamine-dextroamphetamin e XR (ADDERALL XR) 5 mg capsule Take 1 capsule by mouth once daily for 14 days. Take with 10mg to equal 15mg baclofen 10 mg tablet 1 tab bid prn for spasms spironolactone (ALDACTONE) 25 mg tablet amphetamine-dextroamphetamin e XR (ADDERALL XR) 10 mg capsule Take 1 capsule by mouth once daily for 30 days. Do not start before August 07, 2023. Clindamycin Phosphate (CLEOCIN T) 1 % lotion Apply once a day as a spot treatment to the face fluticasone (FLONASE) 50 mcg/actuation nasal spray Use 2 Sprays in each nostril once daily. Rinse mouth after use. adapalene-benzoyl peroxide 0.3-2.5 % Apply to affected area three times a week. ibuprofen (MOTRIN ORAL) Take 400 mg by mouth as needed. amphetamine-dextroamphetamin e XR (ADDERALL XR) 10 mg capsule Take 1 capsule by mouth once daily for 30 days. Do not start before July 08, 2023. amphetamine-dextroamphetamin e XR (ADDERALL XR) 10 mg capsule Take 1 capsule by mouth once daily for 30 days. Do not start before May 09, 2023. amphetamine-dextroamphetamin e XR (ADDERALL XR) 10 mg capsule Take 1 capsule by mouth once daily for 30 days. Do not start before February 08, 2023. FAMILY HISTORY Problem Relation Age of Onset Psychiatry Mother post depression Ischemic Heart Disease Maternal Grandfather Heart Paternal Grandmother Pacemaker Cancer Paternal Grandmother Ischemic Heart Disease Paternal Grandfather Social History Tobacco Use Smoking status: Former Types: Cigarettes Quit date: 12/25/2016 Years since quittin.6 Smokeless tobacco: Never Tobacco comments: A few cigarettes per week. Vaping Use Vaping Use: Never used Substance Use Topics Alcohol use: Yes Comment: seldom Drug use: No BP 110/80 Pulse 105 Temp 36.8 ?C (98.3 ?F) Resp 18 LMP 08/16/2023 (Within Weeks) SpO2 100% Hr 82 Review of Systems Constitutional: Positive for malaise/fatigue. Negative for chills and fever. HENT: Positive for congestion and sore throat. Negative for ear discharge, ear pain and sinus pain. Eyes: Negative for blurred vision, pain, discharge and redness. Respiratory: Positive for cough. Negative for hemoptysis, sputum production, shortness of breath, wheezing and stridor. Cardiovascular: Negative for chest pain. Gastrointestinal: Negative for abdominal pain, diarrhea, nausea and vomiting. Musculoskeletal: Positive for myalgias. Skin: Negative for itching and rash. Neurological: Negative for dizziness and headaches. Objective Physical Exam Constitutional: General: She is not in acute distress. Appearance: She is not diaphoretic. HENT: Head: Normocephalic. Jaw: No trismus, tenderness, swelling or pain on movement. Right Ear: Tympanic membrane, ear canal and external ear normal. Left Ear: Tympanic membrane, ear canal and external ear normal. Nose: Congestion present. Mouth/Throat: (more content not included)... Normal [facility] STREP A MOLECULAR (POC)on Procedural Control Valid [facility] Strep A (POCT) Negative Negative [facility] HEP B SURF AG SCRNon 024 HBV surface Ag Ql (S) Negative Negative [facility] HEPATITIS C ANTIBODY IA WITH CONFIRMATIONon 05-05-2023 HCV Ab Ql (S) Negative Negative [facility] HIV 1+2 Ab IA Qlon HIV 1 and 2 Ab IA.rapid Nom (S/P/Bld) [facility] HIV 1+2 Ab+HIV1 p24 Ag IA Ql Non-Reactive Nonreactive [facility] HIV immunoassay testing algorithm interpretation (S/P/Bld) [Interp] [facility] Reagin and Treponema pallidu m IgG and IgM [Interp]on 05-05-2023 T. pallidum IgG+IgM IA Ql (S) Non-Reactive Nonreactive [facility] SYPHILIS TOTAL W/REFLEXon Reagin and Treponema pallidum IgG and IgM [Interp] Cannot exclude recent Treponemal infection if specimen collected within 7-10 days after appearance of suspect lesions or 2-3 weeks after an exposure. Clinical correlation is required. [facility] MRI CERVICAL SPINE WO IVCONo n 01-31-2023 [facility] UA DIP, URINE (POC)on 2022 BILIRUBIN UA (POCT) Negative Negative [facility] CLARITY UA (POCT) Clear [facility] COLOR UA (POCT) Yellow [facility] GLUCOSE UA (POCT) Negative Negative mg/dL [facility] Hemoglobin Ql (U) Negative Negative [facility] KETONE UA (POCT) Negative Negative mg/dL [facility] LEUKOCYTES UA (POCT) Negative Negative [facility] NITRITE UA (POCT) Negative Negative [facility] PH UA (POCT) 6.0 4.5 - 8.0 [facility] Protein Ql (U) Negative Negative mg/dL [facility] SPECIFIC GRAVITY UA (POCT) >=1.030 1.005 - 1.030 [facility] UROBILINOGEN UA (POCT) 0.2 E.U./dL Normal E.U./dL [facility] COVID NAAT, UPPER RESPIRATOR Y, ROUTINEon 01-01-2023 SARS-CoV-2 (COVID-19) RNA KORY+probe Ql (Resp) Not detected See comment [facility] ROUTINE FLU A/B + RSVon FLUAV RNA KORY+probe Ql (Unsp spec) Not detected Not Detected [facility] FLUBV RNA KORY+probe Ql (Unsp spec) Not detected Not Detected [facility] RSV A RNA KORY+probe Ql (Unsp spec) Not detected Not Detected [facility] STREP A MOLECULAR (POC)on Procedural Control Valid [facility] Strep A (POCT) Negative Negative [facility] US FEMALE PELVIS TRANSVAGon 06-14-2022 [facility] FEMALE PELVIS TRANSVAGon 05-02-2022 [facility] MRI Up Ext Joint w/ Contrast Righton 10-31-2021 MRI Up Ext Joint w/ Contrast Right Patient Name: JOHANNA CARVER Magnetic Resonance Imaging ACCESSION EXAM DATE/TIME PROCEDURE ORDERING PROVIDER [id number] 10/31/2021 11:46 EDT MRI Up Ext Joint w/ JAQUELINEEDARLETTE, FLORI, SHANKAR Contrast Right CPT code 89960 Reason For Exam (MRI Up Ext Joint w/ Contrast Right) pain Report Examination: MRI arthrogram right shoulder Clinical Indication: Strain Comparison: None Findings: Multiplanar multisequence MRI images were obtained through the right shoulder after administration of intra-articular gadolinium contrast. T2 weighted images demonstrate no osseous edema within the shoulder to suggest fracture or contusion. No abnormal bone marrow signal intensity. No labral tear identified. No focal glenohumeral chondral lesion. No evidence of glenohumeral ligament tear/injury. The glenohumeral joint is in good anatomic alignment. No evidence of productive or erosive arthropathy. The rotator cuff tendons are intact without high-grade partial or full-thickness tear. No evidence of tendinosis. The intra and extra-articular portions of the long head biceps tendon are unremarkable. The distal biceps tendon lies within the bicipital groove. The acromioclavicular joint is intact without evidence of effusion. Normal muscle volume and signal intensity. Trace tulalip fluid within the subacromial-subdeltoid bursa. Impression: Trace tulalip fluid within the subacromial-subdeltoid bursa. Otherwise normal right shoulder MR arthrogram. Magnetic Resonance Imaging Report Report Dictated on Final Dictated: 11/01/2021 10:36 am Dictating Physician: MD DURAN JASON Signed Date and Time: 11/01/2021 10:48 am Signed by: MD DURAN JASON Transcribed Date and Time: 11/01/2021 10:36 Normal [facility] RF Arthrogram Shoulder S/I [facility] 10-31-2021 RF Arthrogram Shoulder S/I Right Patient Name: JOHANNA CARVER Fluoroscopy ACCESSION EXAM DATE/TIME PROCEDURE ORDERING PROVIDER [id number] 10/31/2021 11:05 EDT RF Arthrogram Shoulder FLORI ABAD DARLENE SandI Right CPT code 98113 16540 Reason For Exam (RF Arthrogram Shoulder Magalie Right) Strain of other muscles, fascia right arm. Report PROCEDURE: Image-guided Joint Injection Procedural Personnel Attending physician(s): Dr. Tanner Indication: Pain Additional clinical history: None Complications: No immediate complications. IMPRESSION: Image-guided arthrogram of right shoulder. Plan: Patient being transported to MRI for further imaging. PROCEDURE SUMMARY: - Percutaneous fluoro-guided arthrogram - Additional procedure(s): None PROCEDURE DETAILS: Pre-procedure Consent: Informed consent for the procedure including risks, benefits and alternatives was obtained and time-out was performed prior to the procedure. Preparation: The site was prepared and draped using maximal sterile barrier technique including cutaneous antisepsis. Anesthesia/sedation Level of anesthesia/sedation: No sedation Arthrogram Local anesthesia was administered. Under fluoro imaging guidance as stated in the procedure summary, the arthrogram needle was advanced to the right shoulder and position was confirmed with a small amount of iodinated contrast. Arthrogram needle: 20 gauge Arthrogram findings: Contrast confirmed position within joint space. Fluoroscopy Report Needle removal The biopsy needle was removed and a sterile dressing was applied. Tract embolization: None Arthrogram cocktail Contrast agent: 0.1 mL Gadavist / 8 mL Isovue 300 / 3 mL 0.25% ropivacaine/ 10 mL Normal Saline Amount given: 14 ml Radiation Dose Fluoroscopy time (minutes): 0.2 Angiographic runs: 0 Fluoroscopic spot images: 0 Fluoroscopic saved images were obtained. These images do NOT add additional exposure to ionizing radiation and were captured electronically from the imaging chain. Additional Details Additional description of procedure: None Equipment details: None Specimens removed: None Estimated blood loss (mL): Less than 10 Report Dictated on Final Dictated: 10/31/2021 3:05 pm Dictating Physician: MD TANNER JAMES Signed Date and Time: 10/31/2021 3:07 pm Signed by: MD TANNER JAMES Transcribed Date and Time: 10/31/2021 3:05 Normal [facility] XR SHOULDER ARTHROGRAM RIGHT S&Ion 10-31-2021 [id number] Fluor[facility] ACCESSION EXAM DATE/TIME PROCEDURE ORDERING PROVIDER [id number] 10/31/2021 11:05 EDT RF Arthrogram Shoulder WREDBERG, ENGINE TEST CELL TECHNICIAN, SHANKAR S&I Right CPT code 84826 [id number] Reason For Exam (RF Arthrogram Shoulder S&I Right) Strain of other muscles, fascia right arm. Report PROCEDURE: Image-guided Joint Injection Procedural Personnel Attending physician(s): Dr. Tanner Indication: Pain Additional clinical history: None Complications: No immediate complications. IMPRESSION: Image-guided arthrogram of right shoulder. Plan: Patient being transported to MRI for further imaging. PROCEDURE SUMMARY: - Percutaneous fluoro-guided arthrogram - Additional procedure(s): None PROCEDURE DETAILS: Pre-procedure Consent: Informed consent for the procedure including risks, benefits and alternatives was obtained and time-out was performed prior to the procedure. Preparation: The site was prepared and draped using maximal sterile barrier technique including cutaneous antisepsis. Anesthesia/sedation Level of anesthesia/sedation: No sedation Arthrogram Local anesthesia was administered. Under fluoro imaging guidance as stated in the procedure summary, the arthrogram needle was advanced to the right shoulder and position was confirmed with a small amount of iodinated contrast. Arthrogram needle: 20 gauge Arthrogram findings: Contrast confirmed position within joint space. Fluoroscopy Report Needle removal The biopsy needle was removed and a sterile dressing was applied. Tract embolization: None Arthrogram cocktail Contrast agent: 0.1 mL Gadavist / 8 mL Isovue 300 / 3 mL 0.25% ropivacaine/ 10 mL Normal Saline Amount given: 14 ml Radiation Dose Fluoroscopy time (minutes): 0.2 Angiographic runs: 0 Fluoroscopic spot images: 0 Fluoroscopic saved images were obtained. These images do NOT add additional exposure to ionizing radiation and were captured electronically from the imaging chain. Additional Details Additional description of procedure: None Equipment details: None Specimens removed: None Estimated blood loss (mL): Less than 10 Report Dictated on --- Final --- Dictated: 10/31/2021 3:05 pm Dictating Physician: MD TANNER JAMES Signed Date and Time: 10/31/2021 3:07 pm Signed by: MD TANNER JAMES Transcribed Date and Time: 10/31/2021 3:05 [facility] Oscar Arredondo MD - 10/31/2021 Patient Name: JOHANNA CARVER Fluoroscopy ACCESSION EXAM DATE/TIME PROCEDURE ORDERING PROVIDER [id number] 10/31/2021 11:05 EDT RF Arthrogram Shoulder FLORI ABAD DARLENE S&I Right CPT code 86490 [id number] Reason For Exam (RF Arthrogram Shoulder S&I Right) Strain of other muscles, fascia right arm. Report PROCEDURE: Image-guided Joint Injection Procedural Personnel Attending physician(s): Dr. Tanner Indication: Pain Additional clinical history: None Complications: No immediate complications. IMPRESSION: Image-guided arthrogram of right shoulder. Plan: Patient being transported to MRI for further imaging. PROCEDURE SUMMARY: - Percutaneous fluoro-guided arthrogram - Additional procedure(s): None PROCEDURE DETAILS: Pre-procedure Consent: Informed consent for the procedure including risks, benefits and alternatives was obtained and time-out was performed prior to the procedure. Preparation: The site was prepared and draped using maximal sterile barrier technique including cutaneous antisepsis. Anesthesia/sedation Level of anesthesia/sedation: No sedation Arthrogram Local anesthesia was administered. Under fluoro imaging guidance as stated in the procedure summary, the arthrogram needle was advanced to the right shoulder and position was confirmed with a small amount of iodinated contrast. Arthrogram needle: 20 gauge Arthrogram findings: Contrast confirmed position within joint space. Fluoroscopy Report Needle removal The biopsy needle was removed and a sterile dressing was applied. Tract embolization: None Arthrogram cocktail Contrast agent: 0.1 mL Gadavist / 8 mL Isovue 300 / 3 mL 0.25% ropivacaine/ 10 mL Normal Saline Amount given: 14 ml Radiation Dose Fluoroscopy time (minutes): 0.2 Angiographic runs: 0 Fluoroscopic spot images: 0 Fluoroscopic saved images were obtained. These images do NOT add additional exposure to ionizing radiation and were captured electronically from the imaging chain. Additional Details Additional description of procedure: None Equipment details: None Specimens removed: None Estimated blood loss (mL): Less than 10 Report Dictated on --- Final --- Dictated: 10/31/2021 3:05 pm Dictating Physician: MD TANNER JAMES Signed Date and Time: 10/31/2021 3:07 pm Signed by: MD TANNER JAMES Transcribed Date and Time: 10/31/2021 3:05 [facility] Work Phone: Radiology Study observation (narrative) [facility] Work Phone: XR SHOULDER ARTHROGRAM RIGHT S&IOrdered By: Oscar Tanner on 10-31-2021 [facility] Work Phone: UA DIP, URINE (POC)on 2021 BILIRUBIN UA (POCT) Negative Negative [facility] CLARITY UA (POCT) [facility] COLOR UA (POCT) Yellow [facility] GLUCOSE UA (POCT) Negative Negative mg/dL [facility] HEMOGLOBIN/BLOOD UA (POCT) Negative Negative [facility] KETONE UA (POCT) Negative Negative mg/dL [facility] LEUKOCYTES UA (POCT) Negative Negative [facility] NITRITE UA (POCT) Negative Negative [facility] PH UA (POCT) 6.5 4.5 - 8.0 [facility] Protein Ql (U) Negative Negative mg/dL [facility] SPECIFIC GRAVITY UA (POCT) 1.015 1.005 - 1.030 [facility] UROBILINOGEN UA (POCT) 0.2 E.U./dL Normal E.U./dL [facility] XR Cervical spine AP and Lat [facility] 10-01-2021 IMPRESSION: Mild dextrocurvature of the cervical spine. Otherwise unremarkable. Gang Supervisor: EMELIA Transcribe Date/Time: Oct 01 2021 3:34P Dictated by : MAGDALENA MONTALVO MD This examination was interpreted and the report reviewed and electronically signed by: MAGDALENA MONTALVO MD on Oct 01 2021 3:37PM EST ZZZ_DO_NOT _USE_DIVIS ION OF RADIOLOGY * * *Final Report* * * DATE OF EXAM: Oct 01 2021 12:02PM WOX [id number] - XR CERVICAL 2V AP/LAT / PROCEDURE REASON: Neck pain * * * * Physician Interpretation * * * * EXAMINATION: XR CERVICAL 2V AP/LAT HISTORY: Chronic neck pain. TECHNIQUE: XR CERVICAL 2V AP/LAT Laterality: NOT APPLICABLE Number of different views (projections): 2 M: XB_1 COMPARISON: Comparison is made to prior cervical spine dated 22 February 2020. RESULT: 2views of the cervical spine demonstrate all seven cervical vertebral bodies. AP view demonstrates mild dextrocurvature. The vertebral body heights and intervertebral disc spaces are well maintained with normal alignment. The atlantoaxial interval and craniocervical junction are intact. The prevertebral soft tissues are unremarkable. ZZZ_DO_NOT _USE_DIVIS ION OF RADIOLOGY Provider, Celestina Kline [facility] - 10/01/2021 * * *Final Report* * * DATE OF EXAM: Oct 01 2021 12:02PM WOX [id number] - XR CERVICAL 2V AP/LAT / PROCEDURE REASON: Neck pain * * * * Physician Interpretation * * * * EXAMINATION: XR CERVICAL 2V AP/LAT HISTORY: Chronic neck pain. TECHNIQUE: XR CERVICAL 2V AP/LAT Laterality: NOT APPLICABLE Number of different views (projections): 2 M: XB_1 COMPARISON: Comparison is made to prior cervical spine dated 22 February 2020. RESULT: 2views of the cervical spine demonstrate all seven cervical vertebral bodies. AP view demonstrates mild dextrocurvature. The vertebral body heights and intervertebral disc spaces are well maintained with normal alignment. The atlantoaxial interval and craniocervical junction are intact. The prevertebral soft tissues are unremarkable. IMPRESSION IMPRESSION: Mild dextrocurvature of the cervical spine. Otherwise unremarkable. Gang Supervisor: EMELIA Transcribe Date/Time: Oct 01 2021 3:34P Dictated by : MAGDALENA MONTALVO MD This examination was interpreted and the report reviewed and electronically signed by: MAGDALENA MONTALVO MD on Oct 01 2021 3:37PM EST [facility] Radiology Study observation (narrative) [facility] XR Cervical spine AP and Lat eralOrdered By: [facility] Provider on 10-01-2021 [facility] UA DIP, URINE (POC)on 2021 BILIRUBIN UA (POCT) Negative Negative [facility] CLARITY UA (POCT) Slightly Cloudy Cl [facility] COLOR UA (POCT) Yellow [facility] GLUCOSE UA (POCT) Negative Negative mg/dL [facility] HEMOGLOBIN/BLOOD UA (POCT) Negative Negative [facility] KETONE UA (POCT) Negative Negative mg/dL [facility] LEUKOCYTES UA (POCT) Negative Negative [facility] NITRITE UA (POCT) Negative Negative [facility] PH UA (POCT) 7.0 4.5 - 8.0 [facility] Protein Ql (U) Negative Negative mg/dL [facility] SPECIFIC GRAVITY UA (POCT) 1.015 1.005 - 1.030 [facility] UROBILINOGEN UA (POCT) 0.2 E.U./dL Normal E.U./dL [facility] Gastroenterology Visit Repor ton 07-26-2021 Gastroenterology Visit Report [facility]astroenterology [address] [place] [address] OFFICE VISIT Date of Service: 07/26/21 MR#: [id number] Acct: [id number] Name: JOHANNA CARVER Rep #: [id number] : 1985 Provider: Lowell Mitchell DO Age/Sex: 36/F [place] [facility] [place]: Signed Intake Intake Visit Reasons: F/U PER [facility] WITH RF Allergies Penicillins Allergy (Verified 07/06/21 10:27) Unknown sulfamethoxazole Allergy (Verified 07/06/21 10:27) Swelling doxycycline Adverse Reaction (Verified 07/06/21 10:27) JOINT PAIN PFSH Medical History (Updated 07/26/21 @ 16:13 by Teagan Boyd) Abdominal pain Acute anxiety Alcohol use Back pain Eosinophilic esophagitis Foot fracture, left Foot fracture, right Former smoker Gastric reflux Injury of back Injury of head and neck Loss of consciousness Panic attack TBI (traumatic brain injury) Wears glasses Surgical History History of bunionectomy History of esophagogastroduodenoscopy (EGD) Hx of breast reduction, elective Social History Smoking Status: Former smoker substance use type: does not use HPI HPI Details: JOHANNA CARVER, is a 36 F who presents to the office today for Follow up visit. Johanna established with this clinic 01.26.21 for management of previously diagnosed eosinophilic esophagitis and abdominal pain. EOE with dysphagia diagnosed in 2016; Protonix attempted but caused joint pain and does not wish to pursue this further. She has a food allergy of milk and environmental allergy to roaches. 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 Food avoidance includes elimination of dairy and gluten. XR fluoro esophagus performed noted luminal narrowing around C6-T1. Mild esophageal dysmotility identified. There is adequate clearance of the esophagus with a second instructed swallow. ED visit 03.31.19 for abdominal pain suprapubic and left flank. History of EOE. Short-term memory impaired due to previous brain injury. CT abd/pel 03.31.19 with partially cystic left adnexa which may be better assessed with pelvic sonogram. EGD 06.13.21 with LA Grade A reflux esophagitis; gastritis; erythematous mucosa of pylorus and duodenopathy. Plan last visit 07.06.21: Gastric reflux ??? Recommend sucralfate. Reports that she is doing well since last visit. Denies loose stools or reflux. In the evening several days a week in her mid-abdomen she will some pain and feels this is related to her doxycycline that she takes for her acne. ROS Const Constitutional: No fatigue, malaise, night sweats, weight change, sleep problems, abnormal sleep pattern or change in appetite ENT ENT: No difficulty swallowing, hoarseness or sore throat Cardio Cardiology: No chest pain at rest Gastro GI: No belching, bloating, change in bowel habits, change in stool character, coffee ground emesis, constipation, cramping, diarrhea, heartburn, difficulty swallowing, feeling full early, excessive flatus, incontinent of stools, Vomiting blood/hematemesis, Blood in stool, loose stools, Black,tarry stools, nausea/dyspepsia, pain with swallowing, vomiting or other Musc Musculoskeletal: No joint pain Skin Skin: No yellowing of the eye or itchy eyes Neuro Neurology: No behavioral changes Psych Psychiatric: No abnormal sleep pattern, No anxiety, No behavioral changes, No change in appetite and No depression Endo Endocrine: No fatigue or weight change Aller/Imm Allergy/Immunologic: No itchy eyes Ubaldo/Lymp Hematologic/Lymphatic: No easy bleeding or easy bruising Exam Const General: cooperative and comfortable Nutritional Appearance: average body habitus and well nourished HENMT Head: normal to inspection Ears: hearing grossly normal bilaterally Nose: external nose normal Face and sinus: normal facial exam Mouth: oral mucosae normal Throat: posterior oropharynx normal Eyes General: appearance normal, both eyes and all related structures Neck Neck: normal visual inspection Chest Chest palpation inspection: normal inspection of the chest and normal palpation of entire chest wall Resp Effort Inspection: normal respiratory effort Auscultation: Bilateral: Clear to Auscultation Cardio Palpation: normal PMI Rate: regular rate Rhythm: regular rhythm GI Inspection: normal to inspection Auscultation: normal bowel sounds Percussion: normal to percussion Palpation: no hepatosplenomegaly Skin General: no rashes or lesions noted Neuro General: patient alert Extrem General: normal to inspection Psych Affect: normal affect Quality Reporting Tobacco Screening ([facility] 138) Smoking Status: Former smoker Assessment and Plan Assessment and Plan (more content not included)... Normal [facility] Gastroenterology Visit Repor ton 07-06-2021 Gastroenterology Visit Report [facility] Gastroenterology [address] [place] [address] OFFICE VISIT Date of Service: 07/06/21 MR#: [id number] Acct: [id number] Name: JOHANNA CARVER ILIA Rep #: [id number] : 1985 Provider: RONEL Loyola Age/Sex: 36/F [place] [facility] [place] Status: Signed Intake Vital Signs 07/06/21 10:28 Height 5 ft 4 in Weight: 140 lb BMI 24.0 BP 118/84 H Blood Pressure Location Lt brachial Position Sitting Pulse 78 Pulse Oximetry (%) 99 Oxygen Delivery Method room air Intake Visit Reasons: FU Allergies Penicillins Allergy (Verified 07/06/21 10:27) Unknown sulfamethoxazole Allergy (Verified 07/06/21 10:27) Swelling doxycycline Adverse Reaction (Verified 07/06/21 10:27) JOINT PAIN Medications fluticasone propionate [Flonase Allergy Relief] 9.9 ml NS DAILY PRN 09/01/17 [History Confirmed 06/08/21] bupropion HCl 300 mg PO DAILY 01/10/19 [History Confirmed 06/08/21] meclizine 25 mg PO 4X/DAY PRN PRN #16 tab 01/10/19 [Rx Confirmed 06/08/21] baclofen 10 mg PO BID PRN 06/08/21 [History Confirmed 06/08/21] doxycycline monohydrate 100 mg PO BID 06/08/21 [History Confirmed 06/08/21] pantoprazole 40 mg tablet,delayed release 40 mg PO BID #60 tab 06/18/21 [Rx] spironolactone 50 mg tablet 50 mg PO DAILY 07/06/21 [History Confirmed 07/06/21] sucralfate 1 gram tablet 1 g PO QAC #90 tab 07/06/21 [Rx Confirmed 07/06/21] [facility] Medical History (Updated 07/06/21 @ 15:06 by Nolvia Loyola 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, [employer]ER-C) Abdominal pain Acute anxiety Alcohol use Back pain Eosinophilic esophagitis Foot fracture, left Foot fracture, right Former smoker Gastric reflux Injury of back Injury of head and neck Loss of consciousness Panic attack TBI (traumatic brain injury) Wears glasses Surgical History History of bunionectomy History of esophagogastroduodenoscopy (EGD) Hx of breast reduction, elective Social History Smoking Status: Former smoker substance use type: does not use HPI HPI Details: JOHANNA CARVER, is a 36 F who presents to the office today for discussion of EGD findings and biopsy results. Dr Mitchell saw esophagitis, gastritis, erythematous duodenopathy. Biopsies revealed mild gastritis, GE mucosa with mild inflammation, negative for Dewitt's, no eosinophils reported. She has a hx of EOE with dysphagia. She doesn't like to take medication. Dr Mitchell prescribed pantoprazole and sucralfate for her gastritis/esophagitis. She doesn't want to take PPI since it causes joint pains. She thinks liquid sucralfate won't work with her schedule. She avoids dairy, gluten, peanuts. She added back in potatoes in 12/2020--thinks that may be the cause of her gastritis. She has cow milk allergy, remainder of the food allergy RAST done in 01/2021 was negative. Labs for autoimmune, immunoglobulins, celiac negative. Today she denies abdominal pain, nausea, vomiting, bloating, heartburn XR fluoro esophagus performed 02/2018 noted luminal narrowing around C6-T1. Mild esophageal dysmotility identified. There is adequate clearance of the esophagus with a second instructed swallow. ED visit 03/31/19 for abdominal pain suprapubic and left flank. History of EOE. Short-term memory impaired due to previous brain injury. CT abd/pel 03/31/19 with partially cystic left adnexa which may be better assessed with pelvic sonogram. 06/13/21 EGD Impression: - LA Grade A reflux esophagitis. Biopsied. - Gastritis. Biopsied. - Erythematous mucosa in the pylorus. Biopsied. - Erythematous duodenopathy. Biopsied. MICROSCOPIC DIAGNOSIS A. Duodenum, biopsy:Fragments of duodenal mucosa with mild nonspecific chronic inflammation. B. Pylorus, biopsy:Consistent with a fragment of duodenal mucosa, no pathologic diagnosis. C. Gastric antrum, biopsy:Mild gastritis.See microscopic description and comment. D. Distal esophagus, biopsy:Fragments of gastroesophageal mucosa with mild chronic inflammation.Intestinal metaplasia (goblet cell metaplasia) not identified.See comment Negative H pylori ROS Const Constitutional: No fatigue ENT ENT: No difficulty swallowing Gastro GI: No abdominal pain, belching, bloating, change in bowel habits, change in stool character, coffee ground emesis, constipation, cramping, diarrhea, heartburn, difficulty swallowing, feeling full early, excessive flatus, incontinent of stools, Vomiting blood/hematemesis, Blood in stool, loose stools, Black,tarry stools, nausea/dyspepsia, pain with swallowing, vomiting or other Musc Musculoskeletal: Positive for back pain; No joint pain Skin Skin: No yellowing of the eye or itchy eyes Psych Psychiatric: No anxiety and No depression Endo Endocrine: No fatigue Aller/Imm Allergy/Immuno (more content not included)... Normal [facility] CR Shoulder 2+ Views Righton 07-05-2021 CR Shoulder 2+ Views Right Patient Name: JOHANNA CARVER Diagnostic Radiology ACCESSION EXAM DATE/TIME PROCEDURE ORDERING PROVIDER [id number] 07/05/2021 16:15 EDT CR Shoulder 2+ Views FLORI ABAD DARLENE Right CPT code 09753 Reason For Exam (CR Shoulder 2+ Views Right) rt shldr strain Report CLINICAL INFORMATION: Right shoulder pain following trauma. Right shoulder: AP, transscapular lateral and axillary views demonstrate no evidence of acute fracture or dislocation. The glenohumeral joint and acromiohumeral interval are well maintained. There is no abnormality of the acromioclavicular joint. The clavicle, scapula and adjacent ribs are intact. IMPRESSION: No evidence of acute bone trauma. Report Dictated on Final Dictating Physician: MD SHERIDAN HARLAN Signed Date and Time: 07/05/2021 4:36 pm Signed by: MD SHERIDAN HARLAN Transcribed Date and Time: 07/05/2021 4:37 [facility] XR Shoulder Right 2 VWon Patient Name: JOHANNA CARVER Diagnostic Radiology ACCESSION EXAM DATE/TIME PROCEDURE ORDERING PROVIDER [id number] 07/05/2021 16:15 EDT CR Shoulder 2+ Views WREDBERG, ENGINE TEST CELL TECHNICIAN, SHANKAR Right CPT code 75127 Reason For Exam (CR Shoulder 2+ Views Right) rt shldr strain Report CLINICAL INFORMATION: Right shoulder pain following trauma. Right shoulder: AP, transscapular lateral and axillary views demonstrate no evidence of acute fracture or dislocation. The glenohumeral joint and acromiohumeral interval are well maintained. There is no abnormality of the acromioclavicular joint. The clavicle, scapula and adjacent ribs are intact. IMPRESSION: No evidence of acute bone trauma. Report Dictated on --- Final --- Dictating Physician: MD SHERIDAN HARLAN Signed Date and Time: 07/05/2021 4:36 pm Signed by: MD SHERIDAN HARLAN Transcribed Date and Time: 07/05/2021 4:37 [facility] Vitaly Sheridan MD - 07/05/2021 Patient Name: JOHANNA CARVER Diagnostic Radiology ACCESSION EXAM DATE/TIME PROCEDURE ORDERING PROVIDER [id number] 07/05/2021 16:15 EDT CR Shoulder 2+ Views WREDBERG, ENGINE TEST CELL TECHNICIAN, SHANKAR Right CPT code 28127 Reason For Exam (CR Shoulder 2+ Views Right) rt shldr strain Report CLINICAL INFORMATION: Right shoulder pain following trauma. Right shoulder: AP, transscapular lateral and axillary views demonstrate no evidence of acute fracture or dislocation. The glenohumeral joint and acromiohumeral interval are well maintained. There is no abnormality of the acromioclavicular joint. The clavicle, scapula and adjacent ribs are intact. IMPRESSION: No evidence of acute bone trauma. Report Dictated on --- Final --- Dictating Physician: MD SHERIDAN HARLAN Signed Date and Time: 07/05/2021 4:36 pm Signed by: MD SHERIDAN HARLAN Transcribed Date and Time: 07/05/2021 4:37 [facility] Work Phone: Radiology Study observation (narrative) [facility] Work Phone: XR Shoulder Right 2 VWOrdere d By: Vitaly Sheridan on 07-05-2021 [facility] Work Phone: EGD Reporton 06-13-2021 EGD Report [facility] Medical Records Department [address] [place] [address] EGD Report MR#: [id number] Acct: [id number] Name: JOHANNA CARVER Rep #: [id number] : 1985 36 From: Lowell Mitchell DO PCP: Gaby Solis MD [place]:[facility] [place] Patient Name: Johanna Carver Procedure Date: 06/13/2021 6:26 AM Date of : 1985 Age: 36 Procedure: Upper GI endoscopy Indications: Epigastric abdominal pain, Heartburn Providers: Lowell Mitchell DO Medicines: Sedation Required Anesthesia Staff Assistance Patient Profile: This is a 36 year old female. Refer to note in patient chart for documentation of history and physical. Patient has symptoms of acute abdominal cramping, acute abdominal distention and chronic epigastric abdominal pain. Complications: No immediate complications. Procedure: Pre-Anesthesia Assessment: - Prior to the procedure, a History and Physical was performed, and patient medications and allergies were reviewed. The risks and benefits of the procedure and the sedation options and risks were discussed with the patient. All questions were answered and informed consent was obtained. Patient identification and proposed procedure were verified by the physician in the pre-procedure area. Mental Status Examination: alert and oriented. Airway Examination: normal oropharyngeal airway and neck mobility. Respiratory Examination: clear to auscultation. CV Examination: normal. Prophylactic Antibiotics: The patient does not require prophylactic antibiotics. Prior Anticoagulants: The patient has taken no previous anticoagulant or antiplatelet agents. ASA Grade Assessment: II - A patient with mild systemic disease. After reviewing the risks and benefits, the patient was deemed in satisfactory condition to undergo the procedure. The anesthesia plan was to use moderate sedation / analgesia (conscious sedation). Immediately prior to administration of medications, the patient was re-assessed for adequacy to receive sedatives. The heart rate, respiratory rate, oxygen saturations, blood pressure, adequacy of pulmonary ventilation, and response to care were monitored throughout the procedure. The physical status of the patient was re-assessed after the procedure. After obtaining informed consent, the endoscope was passed under direct vision. Throughout the procedure, the patient's blood pressure, pulse, and oxygen saturations were monitored continuously. The gastroscope was introduced through the mouth, and advanced to the second part of duodenum. The upper GI endoscopy was accomplished without difficulty. The patient tolerated the procedure well. Moderate Sedation: Moderate (conscious) sedation was administered by the endoscopy nurse and supervised by the endoscopist. The patient's oxygen saturation, heart rate, blood pressure and response to care were monitored. Total physician intraservice time was 15 minutes. Scope In: 6:37:06 AM Scope Out: 6:43:33 AM Total Procedure Duration Time 0 hours 6 minutes 27 seconds Findings: LA Grade A (one or more mucosal breaks less than 5 mm, not extending between tops of 2 mucosal folds) esophagitis with no bleeding was found 37 to 40 cm from the incisors. Biopsies were taken with a cold forceps for histology. Verification of patient identification for the specimen was done. Estimated blood loss was minimal. Patchy mild inflammation characterized by erythema was found in the gastric antrum. Biopsies were taken with a cold forceps for histology. Verification of patient identification for the specimen was done. Estimated blood loss was minimal. Localized mildly erythematous mucosa without bleeding was found at the pylorus. Biopsies were taken with a cold forceps for histology. Verification of patient identification for the specimen was done. Estimated blood loss was minimal. Patchy mildly erythematous mucosa without active bleeding and with no stigmata of bleeding was found in the first portion of the duodenum. Biopsies were taken with a cold forceps for histology. Verification of patient identification for the specimen was done. Estimated blood loss was minimal. Impression: - LA Grade A reflux esophagitis. Biopsied. - Gastritis. Biopsied. - Erythematous mucosa in the pylorus. Biopsied. - Erythematous duodenopathy. Biopsied. Recommendation: - Discharge patient to home. - Resume previous diet. - Continue present medications. - Await pathology results. Procedure Code(s): --- Professional --- 10980, Esophagogastroduodenoscopy, flexible, transoral; with biopsy, single or multiple G0500, Moderate sedation services provided by the same physician or other qualified health manager long term care performing a gastrointestinal endoscopic service that sedation supports, requiring the presence of an independent trained (more content not included)... Normal [facility] H Pylori (initial)on 022 H Pylori (initial) PHYSICIAN T[place] [address] SPECIMEN INFORMATION: Tissue Source: C ??? Gastric antrum Clinical Info: Eosinophilic esophagitis, abdominal pain Specimen Number: [id number] C CPT code: [id number] METHODOLOGY: Deparaffinized sections of prefer/formalin-fixed tissue or PAP/DQ stained slides are incubated with monoclonal/polyclonal antibodies/oligonucleotide probes. Localization is made via biotin free immunoperoxidase method. Appropriate controls are performed and reacted as expected. Results on target cell population are indicated in the following table: RESULTS: ANTIBODY / CLONE RESULT Block C H Pylori (polyclonal) negative These tests were developed and their performance characteristics determined by [facility]. They may not have been cleared or approved by the U.S. Food and Drug Administration. The FDA has determined that such clearance or approval is not necessary. INTERPRETATION: C. Gastric antrum, biopsy: Negative for Helicobacter pylori organisms. AM:isabell 06/15/2021 Signed (signature on file) Dr. Mike Linares, DO 06/15/21 1308 -------- Normal [facility] Comment on above: Performed By: #### P H.PYLORI ####[facility] [id number] [place], [place], [id number] Laboratory - Chemistry and C hemistry - challengeon 06-13-2021 HCG ( test) Ql (U) Negative [facility] Work Phone: Comment on above: Very dilute urine sp ecimens, as indicated by a low specificgravity, may not contain financial service representative levels of hCG. If is still suspected, a first morning urinespecimen should be collected 48 hours later and tested. ,Urineon 06-13-2021 Beta HCG ( test) Ql (U) Negative [facility] Comment on above: Result Comment: Very dilute urine specimens, as indicated by a low specific gravity, may not contain financial service representative levels of hCG. If is still suspected, a first morning urine specimen should be collected 48 hours later and tested. Performed By: #### L 400.7600 ####[facility] [id number] [place], [place], [id number] Special Stain Group IIon Special Stain Group II OPERATION: EGD ([facility]), biopsy PRE-OP DIAGNOSIS: Eosinophilic esophagitis, abdominal pain TISSUE SUBMITTED: A ??? Duodenum biopsy, B ??? Pylorus biopsy, C ??? Gastric antrum for H. pylori and path, D ??? Distal esophagus -------- A. Duodenum, biopsy: Fragments of duodenal mucosa with mild nonspecific chronic inflammation. B. Pylorus, biopsy: Consistent with a fragment of duodenal mucosa, no pathologic diagnosis. C. Gastric antrum, biopsy: Mild gastritis. See microscopic description and comment. D. Distal esophagus, biopsy: Fragments of gastroesophageal mucosa with mild chronic inflammation. Intestinal metaplasia (goblet cell metaplasia) not identified. See comment. ALEJANDRA:isabell 06/15/2021 C. The results of immunohistochemistry for Helicobacter pylori will be reported separately ([id number]). D. Alcian blue/PAS stain with matched control is used in the evaluation of the specimen. Slides are reviewed. C. The specimen shows fragments of gastric mucosa with chronic inflammatory cell infiltrates in the lamina propria consisting of lymphocytes and plasma cells, consistent with mild chronic gastritis. A - Received in fixative is one container labeled with the patient's name and designated duodenum biopsy. The specimen consists of multiple irregular fragments of light matthews soft tissue that in aggregate measure 1 x 0.5 x 0.1 cm. The specimen is totally submitted in one cassette. B - Received in fixative is one container labeled with the patient's name and designated pylorus biopsy. The specimen consists of one irregular fragment of light matthews soft tissue that measures 0.4 x 0.2 x 0.1 cm. The specimen is totally submitted in one cassette. C - Received in fixative is one container labeled with the patient's name and designated gastric antrum biopsy. The specimen consists of two irregular fragments of light matthews soft tissue that in aggregate measure 1 x 0.5 x 0.1 cm. The specimen is totally submitted in one cassette. D - Received in fixative is one container labeled with the patient's name and designated distal esophagus. The specimen consists of two irregular fragments of light matthews soft tissue that in aggregate measure 0.6 x 0.3 x 0.1 cm. The specimen is totally submitted in one cassette. / ALEJANDRA:isabell 06/14/2021 TC:3 [facility]: [id number] x4, [id number] -------- Signed (signature on file) Dr. Ezekiel Reid MD 06/15/21 1239 -------- Normal [facility] Comment on above: Performed By: #### P SSII ####[facility] [id number] [facility] [place], [address] Mumps Antibody,IgGon 02-08- 021 MUMPS Ab, IgG 125.0 AU/mL Normal Immune >10.9 [facility] Comment on above: Result Comment: Nega tive <9.0 Equivocal 9.0 - 10.9 Positive >10.9 A positive result generally indicates past exposure to Mumps virus or previous vaccination. Performed By: #### L 3400.1750, L3100.0539, L3100.3400, L582.2631 ####[facility] [address] [place], [address] WC EMP Rubeola Titeron - RUBEOLA Ab, IgG > 300.0 Normal Immune >16.4 [facility] Comment on above: Result Comment: Nega tive <13.5 Equivocal 13.5 - 16.4 Positive >16.4 Presence of antibodies to Rubeola is presumptive evidence of immunity except when acute infection is suspected. Performed at: [address] [id number] Utility Clerk: Ravi Richmond PhD, Phone: [phone] Performed By: #### L 3400.1750, L3100.0539, L3100.3400, L509.4015 ####[facility] [address] [place], [place], [phone] Hepatitis B Surf AB - EMPon 02-07-2021 HEP B Surf Ab Reactive Normal [facility] Comment on above: Result Comment: Non Reactive: Inconsistent with immunity less than <10 mIU/mL Reactive: Consistent with immunity greater than or equal to 10 mIU/mL Performed By: #### L 3400.1750, L3100.0539, L3100.3400, L509.4015 ####[facility] [address] [place], [place], [phone] Rubella IgG [facility] 04-10-2020 Rubella IgG Reactive Normal Nonreactive [facility] Comment on above: Result Comment: Anti body Results Interpretation of Immune Status Non Reactive Presumed Non-Immune Equivocal Equivocal Reactive Presumed Immune Performed By: #### L 3400.1750, L3100.0539, L3100.3400, L509.4015 ####[facility] [address] [place], [address] Allergen, Rast Food Profileo n 02-03-2021 CHOCOLATE <0.10 Normal Class 0 [facility] Comment on above: Result Comment: Perf ormed at: [address] [id number] Utility Clerk: Sumanth Lindsey MD, Phone: [phone] Performed By: #### L 3300.1200, L101.9900, L501.3620, L504.2610, L3410.2400, L3200.1500, L3200.1300, L5500.0400, L3100.6900, L3200.1600, L501.6710 ####[facility] [address] [place], [address] COMMENT Comment Normal . [facility] Comment on above: Result Comment: Ayleen milan of Specific IgE Class Description of Class ----- < 0.10 0 Negative 0.10 - 0.31 0/I Equivocal/Low 0.32 - 0.55 I Low 0.56 - 1.40 II Moderate 1.41 - 3.90 III High 3.91 - 19.00 IV Very High 19.01 - 100.00 V Very High >100.00 Very High Performed By: #### L 3300.1200, L101.9900, L501.3620, L504.2610, L3410.2400, L3200.1500, L3200.1300, L5500.0400, L3100.6900, L3200.1600, L501.6710 ####[facility] [address] [place], [address] FISH/SHELL MIX Negative Normal . [facility] Comment on above: Result Comment: Ritchie rgens in this mix are: Blue mussel Fish [place] Shrimp Tuna Performed By: #### L 3300.1200, L101.9900, L501.3620, L504.2610, L3410.2400, L3200.1500, L3200.1300, L5500.0400, L3100.6900, L3200.1600, L501.6710 ####[facility] [address] [place], [place], [phone] BEEF <0.10 Normal Class 0 [facility] Comment on above: Performed By: #### L 3300.1200, L101.9900, L501.3620, L504.2610, L3410.2400, L3200.1500, L3200.1300, L5500.0400, L3100.6900, L3200.1600, L501.6710 ####[facility] [address] [place], [address] CORN <0.10 Normal Class 0 [facility] Comment on above: Performed By: #### L 3300.1200, L101.9900, L501.3620, L504.2610, L3410.2400, L3200.1500, L3200.1300, L5500.0400, L3100.6900, L3200.1600, L501.6710 ####[facility] [address] [place], [place], [phone] EGG, WHOLE <0.10 Normal Class 0 [facility] Comment on above: Performed By: #### L 3300.1200, L101.9900, L501.3620, L504.2610, L3410.2400, L3200.1500, L3200.1300, L5500.0400, L3100.6900, L3200.1600, L501.6710 ####[facility] [address] [place], [place], [phone] MILK (COW) 0.11 kU/L Abnormal Class 0/I [facility] Comment on above: Performed By: #### L 3300.1200, L101.9900, L501.3620, L504.2610, L3410.2400, L3200.1500, L3200.1300, L5500.0400, L3100.6900, L3200.1600, L501.6710 ####[facility] [address] [place], [place], [phone] PEANUT <0.10 Normal Class 0 [facility] Comment on above: Performed By: #### L 3300.1200, L101.9900, L501.3620, L504.2610, L3410.2400, L3200.1500, L3200.1300, L5500.0400, L3100.6900, L3200.1600, L501.6710 ####[facility] [address] [place], [place], [phone](400) PORK <0.10 Normal Class 0 [facility] Comment on above: Performed By: #### L 3300.1200, L101.9900, L501.3620, L504.2610, L3410.2400, L3200.1500, L3200.1300, L5500.0400, L3100.6900, L3200.1600, L501.6710 ####[facility] [address] [place], [place], [address] SOYBEAN <0.10 Normal Class 0 [facility] Comment on above: Performed By: #### L 3300.1200, L101.9900, L501.3620, L504.2610, L3410.2400, L3200.1500, L3200.1300, L5500.0400, L3100.6900, L3200.1600, L501.6710 ####[facility] [address] [place], [place], [phone] WHEAT <0.10 Normal Class 0 [facility] Comment on above: Performed By: #### L 3300.1200, L101.9900, L501.3620, L504.2610, L3410.2400, L3200.1500, L3200.1300, L5500.0400, L3100.6900, L3200.1600, L501.6710 ####[facility] [address] [place], [place], [phone] ANCAon 01-31-2021 Atypical pANCA <1:20 Normal Neg:<1:20 [facility] Comment on above: Order Comment: Y Result Comment: The atypical pANCA pattern has been observed in a significant percentage of patients with ulcerative colitis, primary sclerosing cholangitis and autoimmune hepatitis. Performed By: #### L 3300.1200, L101.9900, L501.3620, L504.2610, L3410.2400, L3200.1500, L3200.1300, L5500.0400, L3100.6900, L3200.1600, L501.6710 ####[facility] [address] [place], [place], [phone] Perinuclear Ab. <1:20 Normal Neg:<1:20 [facility] Comment on above: Order Comment: Y Result Comment: The presence of positive fluorescence exhibiting P-ANCA or C-ANCA patterns alone is not specific for the diagnosis of Indira's Granulomatosis (WG) or microscopic polyangiitis. Decisions about treatment should not be based solely on ANCA IFA results. The International ANCA Group Consensus recommends follow up testing of positive sera with both TX- 3 and MPO-ANCA enzyme immunoassays. As many as 5% serum samples are positive only by EIA. Ref. AM J Clin Pathol 1999;111:507-513. Performed By: #### L 3300.1200, L101.9900, L501.3620, L504.2610, L3410.2400, L3200.1500, L3200.1300, L5500.0400, L3100.6900, L3200.1600, L501.6710 ####[facility] [address] [place], [address] Cytoplasmic Ab <1:20 Normal Neg:<1:20 [facility] Comment on above: Order Comment: Y Performed By: #### L 3300.1200, L101.9900, L501.3620, L504.2610, L3410.2400, L3200.1500, L3200.1300, L5500.0400, L3100.6900, L3200.1600, L501.6710 ####[facility] [address] [place], [place], [address] Angiotensin Convert Enzymeon 01-31-2021 ANGIOT-CONV.ENZ 19 U/L Normal 14-82 [facility] Comment on above: Order Comment: Y Performed By: #### L 3300.1200, L101.9900, L501.3620, L504.2610, L3410.2400, L3200.1500, L3200.1300, L5500.0400, L3100.6900, L3200.1600, L501.6710 #### [facility] [address] [place], [place], [phone] Celiac Disease Profileon tTG IGA <2 Normal 0-3 [facility] Comment on above: Order Comment: Y Result Comment: Nega tive 0 - 3 Weak Positive 4 - 10 Positive >10 Tissue Transglutaminase (tTG) has been identified as the endomysial antigen. Studies have demonstr- ated that endomysial IgA antibodies have over 99% specificity for gluten sensitive enteropathy. Performed By: #### L 3300.1200, L101.9900, L501.3620, L504.2610, L3410.2400, L3200.1500, L3200.1300, L5500.0400, L3100.6900, L3200.1600, L501.6710 ####[facility] [address] [place], [place], [phone] ENDOMYSIAL IGA Negative Normal Negative [facility] Comment on above: Order Comment: Y Performed By: #### L 3300.1200, L101.9900, L501.3620, L504.2610, L3410.2400, L3200.1500, L3200.1300, L5500.0400, L3100.6900, L3200.1600, L501.6710 ####[facility] [address] [place], [place], [phone] IMMUNOGLOB A QN 171 mg/dL Normal 87-352 [facility] Comment on above: Order Comment: Y Performed By: #### L 3300.1200, L101.9900, L501.3620, L504.2610, L3410.2400, L3200.1500, L3200.1300, L5500.0400, L3100.6900, L3200.1600, L501.6710 ####[facility] [address] [place], [place], [phone] Immunoglobulin Vinod 1 IMMUNOGLOB E QN 30 IU/mL Normal 6-495 [facility] Comment on above: Order Comment: Y Performed By: #### L 3300.1200, L101.9900, L501.3620, L504.2610, L3410.2400, L3200.1500, L3200.1300, L5500.0400, L3100.6900, L3200.1600, L501.6710 ####[facility] [address] [place], [place], [phone] Immunoglobulin Micah 1 IMMUNOGLOB G QN 1037 mg/dL Normal 586-1602 [facility] Comment on above: Order Comment: Y Performed By: #### L 3300.1200, L101.9900, L501.3620, L504.2610, L3410.2400, L3200.1500, L3200.1300, L5500.0400, L3100.6900, L3200.1600, L501.6710 #### [facility] [address] [place], [place], [phone] Immunoglobulin Mon 1 IMMUNOGLOB M QN 96 mg/dL Normal 26-217 [facility] Comment on above: Order Comment: Y Result Comment: Perf ormed at: - [facility] [id number] Utility Clerk: Ravi Richmond PhD, Phone: [phone] Performed at: - [facility] [id number] Utility Clerk: Sumanth Lindsey MD, Phone: [phone] Performed By: #### L 3300.1200, L101.9900, L501.3620, L504.2610, L3410.2400, L3200.1500, L3200.1300, L5500.0400, L3100.6900, L3200.1600, L501.6710 #### [facility] [address] [place], [place], [address] CPK Total, Creatine Kinaseon 01-26-2021 CPK TOTAL 127 U/L Normal 26-192 [facility] Comment on above: Order Comment: 1 Performed By: #### L 3300.1200, L101.9900, L501.3620, L504.2610, L3410.2400, L3200.1500, L3200.1300, L5500.0400, L3100.6900, L3200.1600, L501.6710 #### [facility] [address] [place], [address] CRPon 01-26-2021 C-REACTIVE PROT < 2.90 Normal 0.0-3.0 [facility] Comment on above: Order Comment: 1 Result Comment: C-Re active Protein (CRP) provides useful information for the diagnosis, therapy and monitoring of inflammatory processes and associated diseases. For the evaluation of Relative Risk for Cardiovascular Disease, a High Sensitivity CRP (HSCRP) should be ordered. Performed By: #### L 3300.1200, L101.9900, L501.3620, L504.2610, L3410.2400, L3200.1500, L3200.1300, L5500.0400, L3100.6900, L3200.1600, L501.6710 #### [facility] [address] [place], [place], [address] Erythrocyte Sed Rateon 01-26 SED RATE 7 mm/hr Normal 0-30 [facility] Comment on above: Performed By: #### L 3300.1200, L101.9900, L501.3620, L504.2610, L3410.2400, L3200.1500, L3200.1300, L5500.0400, L3100.6900, L3200.1600, L501.6710 #### [facility] [address] [place], [place], [address] Gastroenterology Visit Repor ton 01-26-2021 Gastroenterology Visit Report [facility] [address] [place] [address] OFFICE VISIT Date of Service: 01/26/21 MR#: [id number] Acct: [id number] Name: JOHANNA CARVER Rep #: [id number] : 1985 Provider: Lowell Mitchell DO Age/Sex: 35/F [place] [facility] [place] Status: Signed Intake Intake Visit Reasons: STOMACH ISSUES Allergies doxycycline Allergy (Verified 10/15/20 17:24) Hives Penicillins Allergy (Verified 10/15/20 17:24) Unknown [facility] Medical History (Updated 01/26/21 @ 13:[address] Lowell Mitchell DO) Abdominal pain Acute anxiety Eosinophilic esophagitis Foot fracture, left Foot fracture, right Panic attack TBI (traumatic brain injury) Surgical History (Updated 07/22/20 @ 23:33 by Amber Easton) History of bunionectomy Hx of breast reduction, elective Social History (Updated 07/22/20 @ 23:[address] Ang Schofield, DO) Smoking Status: Never smoker substance use type: does not use HPI HPI Details: JOHANNA CARVER, is a 35 F who presents to the office today for management of eosinophilic esophagitis and abdominal pain. Multiple. She attributes multiple secondary to food allergies and possibly secondary to use of esophagitis. She was tried on pantoprazole therapy but it her joints hurt so she did not take the medicine. Most of her symptoms are bloating and abdominal pain. She does not have much gas or nausea. She has tried reducing her specific foods and has undergone allergy testing in the past. She was notified of having a milk allergy and also a environmental allergy to roaches. 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 She previously saw entry level mechanical engineer for EOE with dysphagia diagnosed 2016. She does not want to take PPI. She avoids triggers with food avoidance. Has eliminated dairy and gluten from her diet. Would like to see about getting an allergen panel done. XR fluoro esophagus performed 02/2018 noted luminal narrowing around C6-T1. Mild esophageal dysmotility identified. There is adequate clearance of the esophagus with a second instructed swallow. ED visit 03/31/19 for abdominal pain suprapubic and left flank. History of EOE. Short-term memory impaired due to previous brain injury. CT abd/pel 03/31/19 with partially cystic left adnexa which may be better assessed with pelvic sonogram. [facility] Musculoskeletal: Positive for back pain Exam Const General: cooperative and comfortable Nutritional Appearance: average body habitus and well nourished [facility] Head: normal to inspection Ears: hearing grossly normal bilaterally Nose: external nose normal Face and sinus: normal facial exam Mouth: oral mucosae normal Throat: posterior oropharynx normal Eyes General: appearance normal, both eyes and all related structures Neck Neck: normal visual inspection Chest Chest palpation inspection: normal inspection of the chest and normal palpation of entire chest wall Resp Effort Inspection: normal respiratory effort Auscultation: Bilateral: Clear to Auscultation Cardio Palpation: normal PMI Rate: regular rate Rhythm: regular rhythm GI Inspection: normal to inspection Auscultation: normal bowel sounds Percussion: normal to percussion Palpation: no hepatosplenomegaly Skin General: no rashes or lesions noted Neuro General: patient alert Extrem General: normal to inspection Psych Affect: normal affect Quality Reporting Tobacco Screening ([facility] 138) Smoking Status: Never smoker Assessment and Plan Assessment and Plan (1) Eosinophilic esophagitis: Status: Acute Orders: Orders: CPK Total, Creatine Kinase Today CRP Today Erythrocyte Sed Rate Today Angiotensin Convert Enzyme Today ANCA Today Celiac Disease Profile Today Immunoglobulin E Today Immunoglobulin G Today Immunoglobulin M Today Allergen, Rast Food Profile Today LDH Today Plan - Dr. Etienne Friend, DO: She will get an EGD to evaluate her upper esophagus and upper GI tract. We will also evaluate her stomach in small bowel for any signs of eosinophilic diseases. We will also get a serum IgE level. (2) Abdominal pain: Status: Acute Plan - Dr. Etienne Friend, DO: We will evaluate her upper GI tract. Since she does have a lactose allergy she could have small intestinal bacterial overgrowth. We will perform biopsies of the stomach and small bowel and check for H. pylori. We will also get above for now seen including biochemical analysis for rheumatoid arthritis, lupus, crest syndrome, Sjogren's syndrome, sarcoidosis. For the appropriate. Coding Level of Care Code Off vis,new,level 4 Diagnoses Eosinophilic esophagitis K20.0 Abdominal pain R10.9 01/26/21 1317 Date Lowell Mitchell DO Cosigner Signature: Date (more content not included)... Normal [facility] LDHon 01-26-2021 LDH 161 U/L Normal 84-246 [facility] Comment on above: Order Comment: 1 Performed By: #### L 3300.1200, L101.9900, L501.3620, L504.2610, L3410.2400, L3200.1500, L3200.1300, L5500.0400, L3100.6900, L3200.1600, L501.6710 #### [facility] [address] [place], [address] Emergency Department Summary on 10-15-2020 Emergency Department Summary [facility] Medical Records Department [address] [place] [address] Emergency Department Summary 10/15/20 MR#: [id number] Acct: [id number] Name: JOHANNA CARVER Rep #: [id number] : 1985 35 From: Kati Babcock DO PCP: Gaby Solis MD Status:DEP ER Location: ED HPI History of Present Illness Chief Complaint: Lower Extremity Injury Detail of Chief Complaint: Right leg injury Informant: patient Narrative Narrative: Patient presents to the emergency department with complaint of injury to the right thigh that occurred several hours ago. Patient states that her daughter was with her at a water park w here she went down the slide. As the daughter was coming down a water slide she struck the patient on the right thigh with her foot. Patient was able to continue playing in the water for some time but started having increased discomfort to the thigh. She thinks it may just be a muscle bruise. Patient has been ambulatory. She denies any other complaints. [facility] Medical History (Updated 10/15/20 @ 17:[address] Kati Babcock DO) Acute anxiety Foot fracture, left Foot fracture, right Panic attack TBI (traumatic brain injury) Home Medications fluticasone propionate [Flonase Allergy Relief] 9.9 ml NS DAILY PRN 09/01/17 [History Last Taken Unknown] bupropion HCl 300 mg PO DAILY 01/10/19 [History Last Taken 01/10/19] meclizine 25 mg PO 4X/DAY PRN PRN #16 tab 01/10/19 [Rx Last Taken Unknown] norgestimate-ethinyl estradiol [[place]] 1 tab PO DAILY 07/22/20 [History Last Taken Unknown] Allergy/AdvReac Type Severity Reaction Status Date / Time doxycycline Allergy Hives Verified 10/15/20 17:24 Penicillins Allergy Unknown Verified 10/15/20 17:24 Surgical History (Updated 07/22/20 @ 23:33 by Amber Easton) History of bunionectomy Hx of breast reduction, elective Social History (Updated 07/22/20 @ 23:[address] Ang Schofield DO) Smoking Status: Never smoker substance use type: does not use ROS ROS ED Constitutional Constitutional ED: Reports systems reviewed and no addt'l complaints, except as documented; Denies body ache(s), change in weight or chills Eyes Eyes: Denies acute decrease in peripheral vision, change in vision, double vision or loss of vision ENT ENT ED: Reports none; Denies ear pain, lip swelling, loss taste/smell, neck pain, otalgia or sore throat Cardiovascular Cardiovascular: Reports none; Denies abdominal pain, chest pain with activity, leg edema, lightheadedness, palpitations, rapid heart rate or syncope Respiratory/Chest Respiratory/Chest: Reports none; Denies change in mental status, dry cough, dyspnea, hemoptysis, shortness of breath at rest or shortness of breath with exertion Gastrointestinal Gastrointestinal: Reports none; Denies abdominal pain, change in stool character, diarrhea, hematemesis, hematochezia, melena, rectal bleeding or vomiting Genitourinary Genitourinary ED: Reports none; Denies abdominal discomfort, anuria, dysuria, genital pain or polyuria Musculoskeletal Musculoskeletal: Reports none and other Details: Right leg injury ; Denies arthralgias, back pain, difficulty walking, extremity pain, muscle weakness or myalgias Integumentary Reports none; Denies abscess or rash Neurologic Neurologic: Reports none; Denies abnormal gait, confusion, focal weakness, frequent falls, headache(s), loss of vision, numbness, paresthesias, radicular pain, vertigo or weakness Psychiatric Psychiatric: Reports systems reviewed and no addt'l complaints, except as documented and none; Denies behavioral changes, confusion, difficulty concentrating, hallucinations, suicidal ideation, tactile hallucinations or visual hallucinations Endocrine Endocrinology: Denies none, cold intolerance, excessive sweating, fatigue or heat intolerance Hematologic/Lymphatic Hematologic/Lymphatic: Reports none; Denies anemia, easy bleeding or easy bruising Allergic/Immunologic Allergic/Immunologic ED: Denies as per HPI, none, lip swelling, mouth swelling, throat swelling, tongue swelling or hives EXAM Physical Exam Const Vital Signs: 10/15/20 17:24 Temperature 99.1 F Temperature Source Temporal Pulse Rate 106 H Respiratory Rate 16 Blood Pressure 119/90 H Blood Pressure Mean 99 Positive well nourished and well developed General Appearance ED: well developed and NAD HEENT Reports TM's clear and moist mucous membranes normocephalic and atraumatic; Negative for trauma or tenderness Tympanic Membrane ED: Yes TM's clear Eyes PERRL and EOMs intact bilaterally General Eye ED: Negative for pale conjunctiva or scleral icterus Neck no lymphadenopathy, supple and no JVD General: Negative for tenderness Chest Wall inspection of chest normal and palpation of chest normal Chest: Negative for tenderness R (more content not included)... Normal [facility] ALLIED HEALTHon 10-21-2018 ALLIED HEALTH HNO ID: [id number] Author: Jadyn Brandt (Tech) Service: Radiology Author Type: Director Of Special Events Type: Allied Health Filed: 10/21/2018 2:05 PM Note Text: Radiology Service Progress Note PATIENT NAME: Johanna Carver DATE OF SERVICE: October 21, 2018 TIME: 2:04 PM PATIENT IDENTITY VERIFICATION COMPLETED USING TWO (2) METHODS: Name and Date of confirmed by patient verbally. PATIENT GENDER DATA: Female. status: : No status: NO. PATIENT RELEVANT IMPLANT DATA REVIEWED: Yes RADIOLOGY DEPARTMENT: MR; Exam(s) Completed: Spine: Lumbar spine PERIPHERAL IV DATA: Not applicable SIGNED BY: JADYN Rico October 21, 2018 2:04 PM [facility] MRI LUMBAR SPINE WO IVCONon 10-21-2018 MRI LUMBAR SPINE WO IVCON * * *Final Report* * * DATE OF EXAM: Oct 21 2018 2:13PM [facility] [id number] - MRI LUMBAR SPINE WO IVCON / PROCEDURE REASON: multiple diagnoses * * * * Physician Interpretation * * * * EXAMINATION: MRI LUMBAR SPINE WO IVCON CLINICAL HISTORY: Spinal stenosis, spondylolisthesis, radiculopathy, trauma - Chronic bilateral low back pain without sciatica TECHNIQUE: Routine lumbosacral spine MR protocol without gadolinium. MQ: [id number] COMPARISON: 10/14/2007 lumbar spine radiographs and 08/31/[address] RESULT: Counting reference: Lumbosacral junction. For the purposes of this report, L4-5 is considered the level of the iliac crest and assume there are 5 lumbar-type vertebrae. Anatomic variant: None. Alignment: Alignment is anatomic. Bone marrow signal/fracture: No evidence of pathologic marrow infiltration. No evidence of prior fracture. Conus: Normal in signal morphology terminating at the mid L2 vertebral body level. Paraspinal soft tissues: Paraspinal soft tissues are within normal limits. Lower thoracic spine: Visualized lower thoracic canal and foramina are patent. T12-L1: Canal and foramina are patent. L1-L2: Canal and foramina are patent. L2-L3: Canal and foramina are patent L3-L4: Canal and foramina are patent L4-L5: Disc desiccation and disc bulge with small annular fissure. The bulges central and eccentric to the right with narrowing of the right subarticular recess with abutment of the traversing right L5 nerve root (series 7, image 19). Canal and foramina remain patent. L5-S1: Canal and foramina are patent Sacrum and iliac wings: The visualized sacrum and iliac wings are within normal limits. IMPRESSION: L4-L5 disc bulge contributing to right subarticular zone narrowing with abutment of the traversing right L5 nerve root. No evidence of high-grade spinal canal or neuroforaminal narrowing. Anatomic Thoracic/Lumbar Variant: None. L4-5 is considered the level of the iliac crest and assume there are 5 lumbar-type vertebrae. Gang [facility] Transcribe Date/Time: Oct 21 2018 2:46P Dictated by : SUE NUR MD This examination was interpreted and the report reviewed and electronically signed by: SUE NUR MD on Oct 21 2018 2:54PM EST [id number] [facility] Vital Signs Date Time Vital Sign Value Performing Clinician Facility 07-29-2024 13:22-0400 Diastolic blood pressure 64 mm[Hg] Lena Clau SCREEN EXAMINER.ENGINE TEST CELL TECHNICIAN Work Phone: [facility] 07-29-2024 13:22-0400 Systolic blood pressure 116 mm[Hg] Lena Clau SCREEN EXAMINER.ENGINE TEST CELL TECHNICIAN Work Phone: [facility] 07-08-2024 11:21-0400 Body height 163.8 cm Pulm Wstr Work Phone: [facility] 07-08-2024 11:21-0400 Body mass index (BMI) [Ratio] 21.97 kg/m2 Pulm Wstr Work Phone: [facility] 07-08-2024 11:21-0400 Body weight 58.97 kg Pulm Wstr Work Phone: [facility] 06-21-2024 14:10-0400 Diastolic blood pressure 68 mm[Hg] Gaby Solis MD Work Phone: [facility] 06-21-2024 14:10-0400 Heart rate 102 /min Gaby Solis MD Work Phone: [facility] 06-21-2024 14:10-0400 Respiratory rate 12 /min Gaby Solis MD Work Phone: [facility] 06-21-2024 14:10-0400 SaO2% (BldA) [Mass fraction] 100 % Gaby Solis MD Work Phone: [facility] 06-21-2024 14:10-0400 Systolic blood pressure 112 mm[Hg] Gaby Solis MD Work Phone: [facility] 05-31-2024 15:46-0400 Heart rate 90 /min Antoinette Older SCREEN EXAMINER.ENGINE TEST CELL TECHNICIAN Work Phone: [facility] 05-31-2024 14:49-0400 Diastolic blood pressure 68 mm[Hg] Antoinette Older SCREEN EXAMINER.ENGINE TEST CELL TECHNICIAN Work Phone: [facility] 05-31-2024 14:49-0400 Respiratory rate 16 /min Antoinette Older SCREEN EXAMINER.ENGINE TEST CELL TECHNICIAN Work Phone: [facility] 05-31-2024 14:49-0400 SaO2% (BldA) [Mass fraction] 98 % Antoinette Older SCREEN EXAMINER.ENGINE TEST CELL TECHNICIAN Work Phone: [facility] 05-31-2024 14:49-0400 Systolic blood pressure 106 mm[Hg] Antoinette Older SCREEN EXAMINER.ENGINE TEST CELL TECHNICIAN Work Phone: [facility] 04-19-2024 09:34-0500 Diastolic blood pressure 64 mm[Hg] Lena Evergreen SCREEN EXAMINER.ENGINE TEST CELL TECHNICIAN Work Phone: [facility] 04-19-2024 09:34-0500 Systolic blood pressure 122 mm[Hg] Lena Clau SCREEN EXAMINER.ENGINE TEST CELL TECHNICIAN Work Phone: [facility] 03-25-2024 09:06-0500 Diastolic blood pressure 75 mm[Hg] Antoinette Older SCREEN EXAMINER.ENGINE TEST CELL TECHNICIAN Work Phone: [facility] 03-25-2024 09:06-0500 Heart rate 88 /min Antoinette Older SCREEN EXAMINER.ENGINE TEST CELL TECHNICIAN Work Phone: [facility] 03-25-2024 09:06-0500 Systolic blood pressure 108 mm[Hg] Antoinette Older SCREEN EXAMINER.ENGINE TEST CELL TECHNICIAN Work Phone: [facility] 03-25-2024 08:36-0500 Body height 163 cm Antoinette Older SCREEN EXAMINER.ENGINE TEST CELL TECHNICIAN Work Phone: [facility] 03-25-2024 08:36-0500 Body mass index (BMI) [Ratio] 22.37 kg/m2 Antoinette Older SCREEN EXAMINER.ENGINE TEST CELL TECHNICIAN Work Phone: [facility] 03-25-2024 08:36-0500 Body temperature 97.3 [degF] Antoinette Older SCREEN EXAMINER.ENGINE TEST CELL TECHNICIAN Work Phone: [facility] 03-25-2024 08:36-0500 Body weight 59.42 kg Antoinette Older SCREEN EXAMINER.ENGINE TEST CELL TECHNICIAN Work Phone: [facility] 03-25-2024 08:36-0500 SaO2% (BldA) [Mass fraction] 100 % Antoinette Older SCREEN EXAMINER.ENGINE TEST CELL TECHNICIAN Work Phone: [facility] 01-05-2024 11:15-0500 Diastolic blood pressure 76 mm[Hg] Lena Clau SCREEN EXAMINER.ENGINE TEST CELL TECHNICIAN Work Phone: [facility] 01-05-2024 11:15-0500 Systolic blood pressure 122 mm[Hg] Lena Evergreen SCREEN EXAMINER.ENGINE TEST CELL TECHNICIAN Work Phone: [facility] 12-25-2023 13:24-0400 Heart rate 88 /min Antoinette Older SCREEN EXAMINER.ENGINE TEST CELL TECHNICIAN Work Phone: [facility] 12-25-2023 13:12-0400 Diastolic blood pressure 78 mm[Hg] Antoinette Older SCREEN EXAMINER.ENGINE TEST CELL TECHNICIAN Work Phone: [facility] 12-25-2023 13:12-0400 Respiratory rate 16 /min Antoinette Older SCREEN EXAMINER.ENGINE TEST CELL TECHNICIAN Work Phone: [facility] 12-25-2023 13:12-0400 SaO2% (BldA) [Mass fraction] 99 % Antoinette Older SCREEN EXAMINER.ENGINE TEST CELL TECHNICIAN Work Phone: [facility] 12-25-2023 13:12-0400 Systolic blood pressure 118 mm[Hg] Antoinette Older SCREEN EXAMINER.ENGINE TEST CELL TECHNICIAN Work Phone: [facility] 09-19-2023 14:21-0400 Body mass index (BMI) [Ratio] 21.97 kg/m2 Lena Evergreen SCREEN EXAMINER.ENGINE TEST CELL TECHNICIAN Work Phone: [facility] 09-19-2023 14:21-0400 Body weight 58.97 kg Lena Clau SCREEN EXAMINER.ENGINE TEST CELL TECHNICIAN Work Phone: [facility] 09-19-2023 14:21-0400 Diastolic blood pressure 64 mm[Hg] Lena Evergreen SCREEN EXAMINER.ENGINE TEST CELL TECHNICIAN Work Phone: [facility] 09-19-2023 14:21-0400 Systolic blood pressure 110 mm[Hg] Lena Clau SCREEN EXAMINER.ENGINE TEST CELL TECHNICIAN Work Phone: [facility] 09-05-2023 12:59-0400 Diastolic blood pressure 62 mm[Hg] Lena Evergreen SCREEN EXAMINER.ENGINE TEST CELL TECHNICIAN Work Phone: [facility] 09-05-2023 12:59-0400 Heart rate 96 /min Lena Evergreen SCREEN EXAMINER.ENGINE TEST CELL TECHNICIAN Work Phone: [facility] 09-05-2023 12:59-0400 Respiratory rate 12 /min Lena Evergreen SCREEN EXAMINER.ENGINE TEST CELL TECHNICIAN Work Phone: [facility] 09-05-2023 12:59-0400 SaO2% (BldA) [Mass fraction] 98 % Lena Clau SCREEN EXAMINER.ENGINE TEST CELL TECHNICIAN Work Phone: [facility] 09-05-2023 12:59-0400 Systolic blood pressure 100 mm[Hg] Lena Clau SCREEN EXAMINER.ENGINE TEST CELL TECHNICIAN Work Phone: [facility] 09-05-2023 08:30-0400 Diastolic blood pressure 78 mm[Hg] Antoinette Older SCREEN EXAMINER.ENGINE TEST CELL TECHNICIAN Work Phone: [facility] 09-05-2023 08:30-0400 Heart rate 88 /min Antoinette Older SCREEN EXAMINER.ENGINE TEST CELL TECHNICIAN Work Phone: [facility] 09-05-2023 08:30-0400 Respiratory rate 16 /min Antoinette Older SCREEN EXAMINER.ENGINE TEST CELL TECHNICIAN Work Phone: [facility] 09-05-2023 08:30-0400 SaO2% (BldA) [Mass fraction] 100 % Antoinette Older SCREEN EXAMINER.ENGINE TEST CELL TECHNICIAN Work Phone: [facility] 09-05-2023 08:30-0400 Systolic blood pressure 118 mm[Hg] Antoinette Older SCREEN EXAMINER.ENGINE TEST CELL TECHNICIAN Work Phone: [facility] 08-26-2023 13:15-0400 Body temperature 98.29 [degF] Ector [facility] SCREEN EXAMINER.ENGINE TEST CELL TECHNICIAN Work Phone: [facility] 08-26-2023 13:15-0400 Diastolic blood pressure 80 mm[Hg] [facility] SCREEN EXAMINER.ENGINE TEST CELL TECHNICIAN Work Phone: [facility] 08-26-2023 13:15-0400 Heart rate 105 /min [facility] SCREEN EXAMINER.ENGINE TEST CELL TECHNICIAN Work Phone: [facility] 08-26-2023 13:15-0400 Respiratory rate 18 /min [facility] SCREEN EXAMINER.ENGINE TEST CELL TECHNICIAN Work Phone: [facility] 08-26-2023 13:15-0400 SaO2% (BldA) [Mass fraction] 100 % [facility] SCREEN EXAMINER.ENGINE TEST CELL TECHNICIAN Work Phone: [facility] 08-26-2023 13:15-0400 Systolic blood pressure 110 mm[Hg] [facility] SCREEN EXAMINER.ENGINE TEST CELL TECHNICIAN Work Phone: [facility] 08-20-2023 11:41-0400 Heart rate 84 /min Antoinette Older SCREEN EXAMINER.ENGINE TEST CELL TECHNICIAN Work Phone: [facility] 08-20-2023 11:28-0400 Diastolic blood pressure 68 mm[Hg] Antoinette Older SCREEN EXAMINER.ENGINE TEST CELL TECHNICIAN Work Phone: [facility] 08-20-2023 11:28-0400 Respiratory rate 16 /min Antoinette Older SCREEN EXAMINER.ENGINE TEST CELL TECHNICIAN Work Phone: [facility] 08-20-2023 11:28-0400 SaO2% (BldA) [Mass fraction] 99 % Antoinette Older SCREEN EXAMINER.ENGINE TEST CELL TECHNICIAN Work Phone: [facility] 08-20-2023 11:28-0400 Systolic blood pressure 112 mm[Hg] Antoinette Older SCREEN EXAMINER.ENGINE TEST CELL TECHNICIAN Work Phone: [facility] 07-28-2023 11:21-0400 Diastolic blood pressure 80 mm[Hg] Gabrielle Podlogar SCREEN EXAMINER.ENGINE TEST CELL TECHNICIAN Work Phone: [facility] 07-28-2023 11:21-0400 Heart rate 92 /min Gabrielle Podlogar SCREEN EXAMINER.ENGINE TEST CELL TECHNICIAN Work Phone: [facility] 07-28-2023 11:21-0400 Respiratory rate 16 /min Gabrielle Podlogar SCREEN EXAMINER.ENGINE TEST CELL TECHNICIAN Work Phone: [facility] 07-28-2023 11:21-0400 SaO2% (BldA) [Mass fraction] 97 % Gabrielle Podlogar SCREEN EXAMINER.ENGINE TEST CELL TECHNICIAN Work Phone: [facility] 07-28-2023 11:21-0400 Systolic blood pressure 106 mm[Hg] Gabrielle Podlogar SCREEN EXAMINER.ENGINE TEST CELL TECHNICIAN Work Phone: [facility] 05-05-2023 14:42-0400 Diastolic blood pressure 64 mm[Hg] Lena Clau SCREEN EXAMINER.ENGINE TEST CELL TECHNICIAN Work Phone: [facility] 05-05-2023 14:42-0400 Systolic blood pressure 100 mm[Hg] Lena Clau SCREEN EXAMINER.ENGINE TEST CELL TECHNICIAN Work Phone: [facility] 04-16-2023 09:07-0500 Body height 163.8 cm Suzi Denbow PA-C Work Phone: [facility] 04-16-2023 09:07-0500 Body temperature 98.1 [degF] Suzi Denbow PA-C Work Phone: [facility] 04-16-2023 09:07-0500 Diastolic blood pressure 60 mm[Hg] Suzi Denbow PA-C Work Phone: [facility] 04-16-2023 09:07-0500 Heart rate 58 /min Suzi Denbow PA-C Work Phone: [facility] 04-16-2023 09:07-0500 Respiratory rate 12 /min Suzi Denbow PA-C Work Phone: [facility] 04-16-2023 09:07-0500 SaO2% (BldA) [Mass fraction] 100 % Suzi Denbow PA-C Work Phone: [facility] 04-16-2023 09:07-0500 Systolic blood pressure 122 mm[Hg] Suzi Denbow PA-C Work Phone: [facility] 04-03-2023 19:03-0500 Body temperature 97.81 [degF] Jluis Fritz MD Work Phone: [facility] 04-03-2023 19:03-0500 Diastolic blood pressure 63 mm[Hg] Jluis Fritz MD Work Phone: [facility] 04-03-2023 19:03-0500 Heart rate 102 /min Jluis Fritz MD Work Phone: [facility] 04-03-2023 19:03-0500 Respiratory rate 16 /min Jluis Fritz MD Work Phone: [facility] 04-03-2023 19:03-0500 Systolic blood pressure 95 mm[Hg] Jluis Fritz MD Work Phone: [facility] 01-30-2023 09:12-0500 [facility] Work Phone: [facility] 01-30-2023 09:12-0500 Body weight 57.83 kg Annita Allred SCREEN EXAMINER.PARTS COUNTER SALESPERSON Work Phone: [facility] 01-30-2023 09:12-0500 Diastolic blood pressure 74 mm[Hg] Annita Allred SCREEN EXAMINER.PARTS COUNTER SALESPERSON Work Phone: [facility] 01-30-2023 09:12-0500 Heart rate 98 /min Annita Allred SCREEN EXAMINER.PARTS COUNTER SALESPERSON Work Phone: [facility] 01-30-2023 09:12-0500 SaO2% (BldA) [Mass fraction] 99 % Annita Allred SCREEN EXAMINER.PARTS COUNTER SALESPERSON Work Phone: [facility] 01-30-2023 09:12-0500 Systolic blood pressure 94 mm[Hg] Annita Allred SCREEN EXAMINER.PARTS COUNTER SALESPERSON Work Phone: [facility] 01-14-2023 09:12-0500 Body height 162.6 cm Suzi Denbow PA-C Work Phone: [facility] 01-14-2023 09:12-0500 Body temperature 96.49 [degF] Suzi Denbow PA-C Work Phone: [facility] 01-14-2023 09:12-0500 Diastolic blood pressure 56 mm[Hg] Suzi Denbow PA-C Work Phone: [facility] 01-14-2023 09:12-0500 Heart rate 105 /min Suzi Denbow PA-C Work Phone: [facility] 01-14-2023 09:12-0500 SaO2% (BldA) [Mass fraction] 100 % Suzi Denbow PA-C Work Phone: [facility] 01-14-2023 09:12-0500 Systolic blood pressure 120 mm[Hg] Suzi Denbow PA-C Work Phone: [facility] 12-31-2022 17:45-0500 Body temperature 98.71 [degF] Billy Lynch SCREEN EXAMINER.ENGINE TEST CELL TECHNICIAN Work Phone: [facility] 12-31-2022 17:45-0500 Diastolic blood pressure 66 mm[Hg] Billy Syed SCREEN EXAMINER.ENGINE TEST CELL TECHNICIAN Work Phone: [facility] 12-31-2022 17:45-0500 Heart rate 88 /min Billysheron Lynch SCREEN EXAMINER.ENGINE TEST CELL TECHNICIAN Work Phone: [facility] 12-31-2022 17:45-0500 Respiratory rate 16 /min Billy Lynch SCREEN EXAMINER.ENGINE TEST CELL TECHNICIAN Work Phone: [facility] 12-31-2022 17:45-0500 SaO2% (BldA) [Mass fraction] 98 % Billy Syed SCREEN EXAMINER.ENGINE TEST CELL TECHNICIAN Work Phone: [facility] 12-31-2022 17:45-0500 Systolic blood pressure 102 mm[Hg] Billy Syed SCREEN EXAMINER.ENGINE TEST CELL TECHNICIAN Work Phone: [facility] 10-17-2022 09:18-0400 Body weight 61.69 kg Lena Clau SCREEN EXAMINER.ENGINE TEST CELL TECHNICIAN Work Phone: [facility] 10-17-2022 09:18-0400 Diastolic blood pressure 58 mm[Hg] Lena Clau SCREEN EXAMINER.ENGINE TEST CELL TECHNICIAN Work Phone: [facility] 10-17-2022 09:18-0400 Systolic blood pressure 100 mm[Hg] Lena Evergreen SCREEN EXAMINER.ENGINE TEST CELL TECHNICIAN Work Phone: [facility] 10-14-2022 09:39-0400 Body height 162.6 cm Suzi Denbow PA-C Work Phone: [facility] 10-14-2022 09:39-0400 Body temperature 98.2 [degF] Suzi Denbow PA-C Work Phone: [facility] 10-14-2022 09:39-0400 Body weight 61.69 kg Suzi Denbow PA-C Work Phone: [facility] 10-14-2022 09:39-0400 Diastolic blood pressure 70 mm[Hg] Suzi Denbow PA-C Work Phone: [facility] 10-14-2022 09:39-0400 Heart rate 82 /min Suzi Denbow PA-C Work Phone: [facility] 10-14-2022 09:39-0400 Respiratory rate 12 /min Suzi Denbow PA-C Work Phone: [facility] 10-14-2022 09:39-0400 SaO2% (BldA) [Mass fraction] 98 % Suzi Denbow PA-C Work Phone: [facility] 10-14-2022 09:39-0400 Systolic blood pressure 106 mm[Hg] Suzi Denbow PA-C Work Phone: [facility] 09-23-2022 14:56-0400 Body height 162.6 cm Azul Bush MD Work Phone: [facility] 09-23-2022 14:56-0400 Body weight 54.43 kg Azul Bush MD Work Phone: [facility] 09-23-2022 14:56-0400 Diastolic blood pressure 85 mm[Hg] Azul Bush MD Work Phone: [facility] 09-23-2022 14:56-0400 Heart rate 73 /min Azul Bush MD Work Phone: [facility] 09-23-2022 14:56-0400 SaO2% (BldA) [Mass fraction] 98 % Azul Bush MD Work Phone: [facility] 09-23-2022 14:56-0400 Systolic blood pressure 120 mm[Hg] Azul Bush MD Work Phone: [facility] 06-21-2022 09:18-0400 Diastolic blood pressure 68 mm[Hg] Lena Clau SCREEN EXAMINER.ENGINE TEST CELL TECHNICIAN Work Phone: [facility] 06-21-2022 09:18-0400 Systolic blood pressure 102 mm[Hg] Lena Clau SCREEN EXAMINER.ENGINE TEST CELL TECHNICIAN Work Phone: [facility] 06-18-2022 14:41-0400 Body height 162.6 cm Araceli Sana SCREEN EXAMINER.ENGINE TEST CELL TECHNICIAN Work Phone: [facility] [facility] 06-18-2022 14:41-0400 Body weight 54.43 kg Araceli Sana SCREEN EXAMINER.ENGINE TEST CELL TECHNICIAN Work Phone: [facility] 06-18-2022 14:41-0400 Diastolic blood pressure 88 mm[Hg] Araceli Sana SCREEN EXAMINER.ENGINE TEST CELL TECHNICIAN Work Phone: [facility] 06-18-2022 14:41-0400 Heart rate 72 /min Araceli Sana SCREEN EXAMINER.ENGINE TEST CELL TECHNICIAN Work Phone: [facility] 06-18-2022 14:41-0400 SaO2% (BldA) [Mass fraction] 99 % Araceli Hectoretti SCREEN EXAMINER.ENGINE TEST CELL TECHNICIAN Work Phone: [facility] 06-18-2022 14:41-0400 Systolic blood pressure 112 mm[Hg] Araceli Sana SCREEN EXAMINER.ENGINE TEST CELL TECHNICIAN Work Phone: [facility] 05-24-2022 15:20-0400 Body height 162.6 cm Octavio Rothman MD Work Phone: [facility] 05-24-2022 15:20-0400 Diastolic blood pressure 74 mm[Hg] Octavio Rothman MD Work Phone: [facility] 05-24-2022 15:20-0400 Heart rate 83 /min Octavio Rothman MD Work Phone: [facility] 05-24-2022 15:20-0400 Respiratory rate 16 /min Octavio Rothman MD Work Phone: [facility] 05-24-2022 15:20-0400 Systolic blood pressure 104 mm[Hg] Octavio Rothman MD Work Phone: [facility] 05-02-2022 10:40-0500 Body weight 54.43 kg Lena Evergreen SCREEN EXAMINER.ENGINE TEST CELL TECHNICIAN Work Phone: [facility] 05-02-2022 10:40-0500 Diastolic blood pressure 60 mm[Hg] Lena Evergreen SCREEN EXAMINER.ENGINE TEST CELL TECHNICIAN Work Phone: [facility] 05-02-2022 10:40-0500 Systolic blood pressure 100 mm[Hg] Lena Olguin APRN.ENGINE TEST CELL TECHNICIAN Work Phone: [facility] 04-10-2022 09:30-0500 Body height 162.6 cm Gaby Solis MD Work Phone: [facility] 04-10-2022 09:30-0500 Body temperature 98.49 [degF] Gaby Solis MD Work Phone: [facility] 04-10-2022 09:30-0500 Body weight 57.15 kg Gaby Solis MD Work Phone: [facility] 04-10-2022 09:30-0500 Diastolic blood pressure 68 mm[Hg] Gaby Solis MD Work Phone: [facility] 04-10-2022 09:30-0500 Heart rate 83 /min Gaby Solis MD Work Phone: [facility] 04-10-2022 09:30-0500 Respiratory rate 12 /min Gaby Solis MD Work Phone: [facility] 04-10-2022 09:30-0500 SaO2% (BldA) [Mass fraction] 97 % Gaby Solis MD Work Phone: [facility] 04-10-2022 09:30-0500 Systolic blood pressure 110 mm[Hg] Gaby Solis MD Work Phone: [facility] 02-28-2022 10:29-0500 Body height 162.6 cm Octavio Rothman MD Work Phone: [facility] 02-28-2022 10:29-0500 Body weight 61.24 kg Octavio Rothman MD Work Phone: [facility] 01-23-2022 08:17-0500 Body height 162.6 cm Gaby Solis MD Work Phone: [facility] 01-23-2022 08:17-0500 Body weight 61.24 kg Gaby Solis MD Work Phone: [facility] 01-23-2022 08:17-0500 Diastolic blood pressure 60 mm[Hg] Gaby Solis MD Work Phone: [facility] 01-23-2022 08:17-0500 Heart rate 85 /min Gaby Solis MD Work Phone: [facility] 01-23-2022 08:17-0500 Respiratory rate 12 /min Gaby Solis MD Work Phone: [facility] 01-23-2022 08:17-0500 SaO2% (BldA) [Mass fraction] 95 % Gaby Solis MD Work Phone: [facility] 01-23-2022 08:17-0500 Systolic blood pressure 114 mm[Hg] Gaby Solis MD Work Phone: [facility] 12-31-2021 10:12-0500 Body height 162.6 cm Lena Evergreen SCREEN EXAMINER.ENGINE TEST CELL TECHNICIAN Work Phone: [facility] 12-31-2021 10:12-0500 Diastolic blood pressure 68 mm[Hg] Lena Evergreen SCREEN EXAMINER.ENGINE TEST CELL TECHNICIAN Work Phone: [facility] 12-31-2021 10:12-0500 Systolic blood pressure 100 mm[Hg] Lena Evergreen SCREEN EXAMINER.ENGINE TEST CELL TECHNICIAN Work Phone: [facility] 12-25-2021 08:12-0400 Body temperature 97.11 [degF] Billy Lynch SCREEN EXAMINER.ENGINE TEST CELL TECHNICIAN Work Phone: [facility] 12-25-2021 08:12-0400 Body weight 60.78 kg Billy Syed SCREEN EXAMINER.ENGINE TEST CELL TECHNICIAN Work Phone: [facility] 12-25-2021 08:12-0400 Diastolic blood pressure 78 mm[Hg] Billy SCREEN EXAMINER.ENGINE TEST CELL TECHNICIAN Work Phone: [facility] 12-25-2021 08:12-0400 Heart rate 83 /min Billy Lynch SCREEN EXAMINER.ENGINE TEST CELL TECHNICIAN Work Phone: [facility] 12-25-2021 08:12-0400 Respiratory rate 16 /min Billy Syed SCREEN EXAMINER.ENGINE TEST CELL TECHNICIAN Work Phone: [facility] 12-25-2021 08:12-0400 SaO2% (BldA) [Mass fraction] 100 % Billy Syed SCREEN EXAMINER.ENGINE TEST CELL TECHNICIAN Work Phone: [facility] 12-25-2021 08:12-0400 Systolic blood pressure 110 mm[Hg] Billy Lynch SCREEN EXAMINER.ENGINE TEST CELL TECHNICIAN Work Phone: [facility] 10-30-2021 08:46-0400 Diastolic blood pressure 70 mm[Hg] Perla Anaya SCREEN EXAMINER.ENGINE TEST CELL TECHNICIAN Work Phone: [facility] 10-30-2021 08:46-0400 Systolic blood pressure 100 mm[Hg] Perla Anaya SCREEN EXAMINER.ENGINE TEST CELL TECHNICIAN Work Phone: [facility] 10-26-2021 11:29-0400 Body height 162.6 cm Gaby Solis MD Work Phone: [facility] 10-26-2021 11:29-0400 Body temperature 98.01 [degF] Gaby Solis MD Work Phone: [facility] 10-26-2021 11:29-0400 Body weight 60.78 kg Gaby Solis MD Work Phone: [facility] 10-26-2021 11:29-0400 Diastolic blood pressure 60 mm[Hg] Gaby Solis MD Work Phone: [facility] 10-26-2021 11:29-0400 Heart rate 106 /min Gaby Solis MD Work Phone: [facility] 10-26-2021 11:29-0400 Respiratory rate 12 /min Gaby Solis MD Work Phone: [facility] 10-26-2021 11:29-0400 SaO2% (BldA) [Mass fraction] 95 % Gaby Solis MD Work Phone: [facility] 10-26-2021 11:29-0400 Systolic blood pressure 110 mm[Hg] Gaby Solis MD Work Phone: [facility] 10-01-2021 10:13-0400 Diastolic blood pressure 72 mm[Hg] Antoinette Older SCREEN EXAMINER.ENGINE TEST CELL TECHNICIAN Work Phone: [facility] 10-01-2021 10:13-0400 Heart rate 80 /min Antoinette Older SCREEN EXAMINER.ENGINE TEST CELL TECHNICIAN Work Phone: [facility] 10-01-2021 10:13-0400 Respiratory rate 16 /min Antoinette Older SCREEN EXAMINER.ENGINE TEST CELL TECHNICIAN Work Phone: [facility] 10-01-2021 10:13-0400 Systolic blood pressure 118 mm[Hg] Antoinette Older SCREEN EXAMINER.ENGINE TEST CELL TECHNICIAN Work Phone: [facility] 08-13-2021 10:35-0400 Diastolic blood pressure 70 mm[Hg] Lena Evergreen SCREEN EXAMINER.ENGINE TEST CELL TECHNICIAN Work Phone: [facility] 08-13-2021 10:35-0400 Systolic blood pressure 100 mm[Hg] Lena Evergreen SCREEN EXAMINER.ENGINE TEST CELL TECHNICIAN Work Phone: [facility] 08-08-2021 16:11-0400 Body height 162.6 cm Gaby Solis MD Work Phone: [facility] 08-08-2021 16:11-0400 Body temperature 98.2 [degF] Gaby Solis MD Work Phone: [facility] 08-08-2021 16:11-0400 Diastolic blood pressure 60 mm[Hg] Gaby Solis MD Work Phone: [facility] 08-08-2021 16:11-0400 Heart rate 115 /min Gaby Solis MD Work Phone: [facility] 08-08-2021 16:11-0400 Respiratory rate 12 /min Gaby Solis MD Work Phone: [facility] 08-08-2021 16:11-0400 SaO2% (BldA) [Mass fraction] 98 % Gaby Solis MD Work Phone: [facility] 08-08-2021 16:11-0400 Systolic blood pressure 114 mm[Hg] Gaby Solis MD Work Phone: [facility] 08-03-2021 10:18-0400 Diastolic blood pressure 72 mm[Hg] Lena Clau SCREEN EXAMINER.ENGINE TEST CELL TECHNICIAN Work Phone: [facility] 08-03-2021 10:18-0400 Systolic blood pressure 110 mm[Hg] Lena Clau SCREEN EXAMINER.ENGINE TEST CELL TECHNICIAN Work Phone: [facility] 06-13-2021 07:05-0400 Body temperature 97.6 [degF] Gabyra Solis [facility] Work Phone: 06-13-2021 07:05-0400 Diastolic blood pressure 64 mm[Hg] MD Gaby Solis [facility] Work Phone: 06-13-2021 07:05-0400 Heart rate 78 /min Gabyra Solis [facility] Work Phone: 06-13-2021 07:05-0400 Respiratory rate 106 /min Gabyra Solis [facility] Work Phone: 06-13-2021 07:05-0400 SaO2% (BldA) [Mass fraction] 100 % Gaby [facility] Work Phone: 06-13-2021 07:05-0400 Systolic blood pressure 99 mm[Hg] MD Gaby Solis [facility] Work Phone: 06-13-2021 06:14-0400 Body height 162.56 cm Gabyra Solis [facility] Work Phone: 06-13-2021 06:14-0400 Body mass index (BMI) [Ratio] 25.4 kg/m2 Gabyra Solis [facility] Work Phone: 06-13-2021 06:14-0400 Body weight 67.13 kg MD Gaby Solis [facility] Work Phone: Encounters Encounter Date Encounter Type Care Provider Facility Start: 08-19-2024 End: 08-19-2024 Patient encounter procedure Gloria Jerome MD Work Phone: Otolaryngology Comment on above: Xerostomia (Primary Dx); Burning tongue Start: 08-19-2024 End: 08-19-2024 ambulatory GABY SOLIS Facility:[facility] Start: 08-12-2024 End: 08-12-2024 ambulatory Dariusz Duncan PT Work Phone: [facility] Comment on above: Chronic left-sided l ow back pain, unspecified whether sciatica present (Primary Dx) Start: 08-05-2024 End: 08-05-2024 ambulatory Dariuszdaja Duncan PT Work Phone: [facility] Comment on above: Chronic left-sided l ow back pain, unspecified whether sciatica present (Primary Dx) Start: 07-29-2024 End: 07-29-2024 ambulatory Dariusz Duncan PT Work Phone: [facility] Comment on above: Chronic left-sided l ow back pain, unspecified whether sciatica present (Primary Dx) Start: 07-29-2024 End: 07-29-2024 Patient encounter procedure Lena Olguin APRN.ENGINE TEST CELL TECHNICIAN Work Phone: OB/Gynecology Comment on above: Vaginal discharge (P rimary Dx); Oral thrush; Rash Start: 07-28-2024 End: 07-29-2024 Refill Gaby Solis MD Work Phone: Internal [facility] [place] Comment on above: Refill Request Start: 07-22-2024 End: 07-22-2024 ambulatory Dariusz Duncan PT Work Phone: [facility] Comment on above: Chronic left-sided l ow back pain, unspecified whether sciatica present (Primary Dx) Start: 07-13-2024 End: 07-13-2024 ambulatory Dariuszdaja Duncan PT Work Phone: [facility] Comment on above: Chronic left-sided l ow back pain, unspecified whether sciatica present (Primary Dx) Start: 07-08-2024 End: 07-08-[address] [facility] Work Phone: [facility] Comment on above: Spirometry Start: 07-08-2024 End: 07-08-2024 Patient encounter procedure [facility] Work Phone: [facility] Start: 07-06-2024 End: 07-06-2024 ambulatory [facility]ariusz Duncan [facility] Comment on above: Chronic left-sided l ow back pain, unspecified whether sciatica present (Primary Dx) Start: 06-21-2024 End: 06-21-2024 ambulatory [facility] Facility:[facility] Start: 06-21-2024 End: 06-21-2024 Office outpatient visit 25 minutes Gaby Solis MD Work Phone: [facility] [place] Comment on above: Vitamin D deficiency (Primary Dx); Attention deficit hyperactivity disorder (ADHD), predominantly inattentive type; Iron deficiency; Other fatigue; SOB (shortness of breath) Start: 06-21-2024 End: 06-21-2024 ambulatory [facility] Facility:[facility] Start: 06-17-2024 End: 06-17-2024 ambulatory OCTAVIO ROTHMAN Facility:[facility] Start: 06-02-2024 End: 08-02-2024 Follow-up encounter Antoinette Anthony APRN.CNP Work Phone: [facility] [place] Start: 05-31-2024 End: 05-31-2024 ambulatory [facility] Facility:[facility] Start: 05-31-2024 End: 05-31-2024 ambulatory [facility] Facility:[facility] Start: 05-31-2024 End: 05-31-2024 Patient encounter procedure Antoinette Anthony APRN.CNP Work Phone: [facility] [place] Comment on above: Other fatigue (Prima ry Dx); Seasonal allergies; Glossodynia; Brain fog; Easy bruising; Tachycardia; Cardiac arrhythmia, unspecified cardiac arrhythmia type Start: 05-31-2024 End: 05-31-2024 Telephone encounter Gaby Solis MD Work Phone: [facility] [place] Comment on above: Appointment Start: 05-21-2024 End: 05-24-2024 Refill Antoinette Anthony SCREEN EXAMINER.ENGINE TEST CELL TECHNICIAN Work Phone: [facility] [place] Comment on above: Refill Request Start: 05-11-2024 End: 05-12-2024 Refill Antoinette Anthony SCREEN EXAMINER.ENGINE TEST CELL TECHNICIAN Work Phone: [facility] [place] Comment on above: Refill Request Start: 04-26-2024 End: 07-01-2024 Refill Octavio Rothman MD Work Phone: Neurology Comment on above: Refill Request Start: 04-22-2024 End: 04-22-2024 Refill Gaby Solis MD Work Phone: [facility] [place] Comment on above: Refill Request Start: 04-19-2024 End: 04-19-2024 Patient encounter procedure Lenayasmine DiazEvergreen SCREEN EXAMINER.ENGINE TEST CELL TECHNICIAN Work Phone: OB/Gynecology Comment on above: Vaginal discharge (P rimary Dx); Oral thrush Start: 04-19-2024 End: 04-19-2024 [facility] Facility:[facility] Start: 04-12-2024 End: 04-12-2024 Patient encounter procedure Nara GARCÍA Work Phone: [facility] Comment on above: No-show for appointm ent (Primary Dx) Start: 04-05-2024 End: 04-06-2024 Telephone encounter Gaby Solis MD Work Phone: [facility] [place] Comment on above: Patient Update; Medi cation Request Start: 03-30-2024 End: 03-30-2024 Nursing evaluation of patient and report Mi Nurse Work Phone: [facility] [place] Comment on above: APPOINTMENT CANCELLE D (Primary Dx) Start: 03-30-2024 End: 03-30-2024 [facility] Facility:[facility] Start: 03-25-2024 End: 03-25-2024 [facility] Facility:[facility] Start: 03-25-2024 End: 03-25-2024 ambulatory [facility] Facility:[facility] Start: 03-25-2024 End: 03-25-2024 Patient encounter procedure Antoinette Anthony APRN.ENGINE TEST CELL TECHNICIAN Work Phone: [facility] [place] Comment on above: Annual physical exam (Primary Dx); Attention deficit hyperactivity disorder (ADHD), predominantly inattentive type; Thrush; Vitamin D deficiency; Visit for TB skin test Start: 03-11-2024 End: 03-12-2024 Telephone encounter Lena Olguin APRN.ENGINE TEST CELL TECHNICIAN Work Phone: OB/Gynecology Comment on above: Results Start: 03-09-2024 End: 03-11-2024 Telephone encounter Gaby Solis MD Work Phone: [facility] [place] Comment on above: Patient Question Start: 03-09-2024 End: 03-09-2024 [facility] Facility:[facility] Start: 03-04-2024 End: 03-05-2024 Telephone encounter Gaby Solis MD Work Phone: [facility] [place] Comment on above: Letter Request Start: 02-04-2024 End: 02-04-2024 [facility]: [facility] Comment on above: No-show for appointm ent (Primary Dx); Traumatic brain injury with loss of consciousness, sequela (HCC); Generalized anxiety disorder; Depression, unspecified depression type Start: 01-14-2024 End: 01-14-2024 Telephone encounter Gaby Solis MD Work Phone: Internal [facility] [place] Comment on above: requesting TB blood test Start: 01-05-2024 End: 01-05-2024 ambulatory LENA CLAU Facility:[facility] Start: 01-05-2024 End: 01-05-2024 Patient encounter procedure Lena Olguin APRN.ENGINE TEST CELL TECHNICIAN Work Phone: OB/Gynecology Comment on above: Encounter for gyneco logical examination (general) (routine) without abnormal findings (Primary Dx); Vaginal discharge; Screening for STDs (sexually transmitted diseases) Start: 01-05-2024 End: 01-05-2024 Patient encounter status Lena Clau SCREEN EXAMINER.ENGINE TEST CELL TECHNICIAN Work Phone: [facility] Start: 12-25-2023 End: 12-25-2023 [facility] Facility:[facility] Start: 12-25-2023 End: 12-25-2023 Patient encounter procedure Antoinette Anthony SCREEN EXAMINER.ENGINE TEST CELL TECHNICIAN Work Phone: [facility] [place] Comment on above: Attention deficit hy peractivity disorder (ADHD), predominantly inattentive type (Primary Dx) Start: 12-17-2023 End: 12-17-2023 Patient encounter procedure Nara Floresernestotien RAQUEL Work Phone: [facility] Comment on above: No-show for appointm ent (Primary Dx); Adjustment disorder with mixed anxiety and depressed mood Start: 10-15-2023 End: 10-15-2023 Telephone encounter Antoinette Anthony SCREEN EXAMINER.ENGINE TEST CELL TECHNICIAN Work Phone: [facility] [place] Comment on above: Results Start: 10-11-2023 End: 10-11-2023 [facility] Facility:[facility] Start: 09-29-2023 Telephone encounter Lena c long term SCREEN EXAMINER.ENGINE TEST CELL TECHNICIAN Work Phone: OB/Gynecology Comment on above: Vaginal Problem Patient Question Start: 09-24-2023 Telephone encounter Lena Metc long term SCREEN EXAMINER.ENGINE TEST CELL TECHNICIAN Work Phone: OB/Gynecology Comment on above: Results Start: 09-19-2023 End: 09-19-2023 Patient encounter procedure Lena Evergreen SCREEN EXAMINER.ENGINE TEST CELL TECHNICIAN Work Phone: OB/Gynecology Comment on above: Bladder pain (Primar y Dx); Eczema, unspecified type Start: 09-19-2023 End: 09-19-2023 ambulatory [facility] Facility:[facility] Start: 09-05-2023 End: 09-05-2023 [facility] Facility:[facility] Start: 09-05-2023 End: 09-05-2023 Patient encounter procedure Lena Evergreen SCREEN EXAMINER.ENGINE TEST CELL TECHNICIAN Work Phone: OB/Gynecology Comment on above: Screening for STD (s exually transmitted disease) (Primary Dx) Start: 09-05-2023 End: 09-05-2023 ambulatory [facility] Facility:[facility] Start: 09-05-2023 End: 09-05-2023 Patient encounter procedure Antoinette Anthony APRN.ENGINE TEST CELL TECHNICIAN Work Phone: [facility] [place] Comment on above: Attention deficit di sorder, unspecified hyperactivity presence (Primary Dx) Start: 08-26-2023 End: 08-26-2023 [facility] Facility:[facility] Start: 08-26-2023 End: 08-26-2023 Office outpatient visit 15 minutes Ector Bautista SCREEN EXAMINER.ENGINE TEST CELL TECHNICIAN Work Phone: [facility] Comment on above: Sore throat (Primary Dx); Viral illness Start: 08-21-2023 Telephone encounter Renetta rausch SCREEN EXAMINER.ENGINE TEST CELL TECHNICIAN Work Phone: [facility] [place] Comment on above: Results Start: 08-20-2023 End: 08-20-2023 Patient encounter procedure Antoinette Anthony APRN.ENGINE TEST CELL TECHNICIAN Work Phone: [facility] [place] Comment on above: Attention deficit di sorder, unspecified hyperactivity presence (Primary Dx) Start: 07-31-2023 Refill Octavio Rothman MD Work Phone: [facility] [place] Comment on above: Refill Request Start: 07-28-2023 Telephone encounter Gaby ruvalcaba MD Work Phone: [facility] [place] Comment on above: Future Appointment Start: 07-28-2023 End: 07-28-2023 Patient encounter procedure Gabrielle Ramoslogakua SCREEN EXAMINER.ENGINE TEST CELL TECHNICIAN Work Phone: [facility] [place] Comment on above: Burning tongue (Prim leroy Dx) Start: 06-24-2023 End: 06-24-2023 [facility] Nara Floresernestotien RAQUEL Work Phone: [facility] Comment on above: Adjustment disorder with mixed anxiety and depressed mood (Primary Dx) Start: 06-11-2023 Telephone encounter Antoinette Anthony APRN.CNP Work Phone: [facility] [place] Comment on above: Lab Orders Start: 06-02-2023 Telephone encounter Antoinette Anthony APRN.ENGINE TEST CELL TECHNICIAN Work Phone: [facility] [place] Comment on above: Orders Start: 05-05-2023 End: 05-05-2023 Patient encounter procedure Lena Olguin APRN.ENGINE TEST CELL TECHNICIAN Work Phone: OB/Gynecology Comment on above: Screen for STD (sexu ally transmitted disease) (Primary Dx) Start: 04-16-2023 End: 04-16-2023 Patient encounter procedure Suzi Rodriguez PA-C Work Phone: [facility] [place] Comment on above: Attention deficit di sorder, unspecified hyperactivity presence (Primary Dx); Traumatic brain injury with loss of consciousness, sequela (HCC); Generalized anxiety disorder; Depression, unspecified depression type; Hair abnormality; Brittle nails Start: 04-03-2023 End: 04-03-2023 Patient encounter procedure Jluis Fritz MD Work Phone: [facility] [place] Comment on above: Oral thrush (Primary Dx); Acute vaginitis; Screen for STD (sexually transmitted disease) Start: 01-31-2023 End: 01-31-2023 Subsequent hospital visit by physician [facility] (I-Stat/1.5t) Work Phone: Radiology Comment on above: Cervicalgia [M54.2] Start: 01-30-2023 End: 01-30-2023 Patient encounter procedure Annita Allred APRN.PARTS COUNTER SALESPERSON Work Phone: [facility] [place] Comment on above: Routine medical exam (Primary Dx); Encounter for immunization; Attention deficit disorder, unspecified hyperactivity presence; Screening for tuberculosis; UTI symptoms; Oral pain Start: 01-30-2023 End: 01-30-2023 Patient encounter status Annita Allred APRN.PARTS COUNTER SALESPERSON Work Phone: [facility] Work Phone: Start: 01-28-2023 Telephone encounter Lena lord SCREEN EXAMINER.ENGINE TEST CELL TECHNICIAN Work Phone: OB/Gynecology Comment on above: Patient Question Start: 01-14-2023 Telephone encounter Yana Espinal sonam SCREEN EXAMINER.ENGINE TEST CELL TECHNICIAN Work Phone: [facility] [place] Comment on above: Orders (MRI ) Start: 01-14-2023 End: 01-14-2023 Patient encounter procedure Suzi Rodriguez PA-C Work Phone: Internal Medicine [place] Comment on above: Attention deficit di sorder, unspecified hyperactivity presence (Primary Dx); Rash Start: 12-31-2022 End: 12-31-2022 Patient encounter procedure Billy Lynch APRN.ENGINE TEST CELL TECHNICIAN Work Phone: [facility] Comment on above: URI, acute (Primary Dx); Sore throat Start: 12-05-2022 Telephone encounter Jose M osullivan MD Work Phone: Pain Management Comment on above: Appointment Start: 11-22-2022 Telephone encounter Octavio Rothman MD Work Phone: [facility] [place] Comment on above: Patient Question Start: 10-23-2022 Telephone encounter Octavio Rothman MD Work Phone: Neurology Comment on above: Medication Question Start: 10-17-2022 End: 10-17-2022 Patient encounter procedure Lena Olguin APRN.ENGINE TEST CELL TECHNICIAN Work Phone: OB/Gynecology Comment on above: Screen for STD (sexu ally transmitted disease) (Primary Dx) Start: 10-14-2022 End: 10-14-2022 Patient encounter procedure Suzi Rodriguez PA-C Work Phone: Internal Medicine [place] Comment on above: Attention deficit di sorder, unspecified hyperactivity presence (Primary Dx); Seasonal allergies; Traumatic brain injury with loss of consciousness, sequela (HCC); Neck pain; Dizziness Start: 09-27-2022 End: 09-27-2022 Patient encounter procedure Syncope Opd Nurse Work Phone: Cardiology Comment on above: 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, unspecified (Primary Dx) Start: 09-23-2022 End: 09-23-2022 Patient encounter procedure Azul Bush MD Work Phone: Psychiatry [facility] Recovery Comment on above: Pain disorder associ ated with psychological factors and medical condition (Primary Dx); Chronic pain syndrome; SADAF (generalized anxiety disorder) Start: 09-19-2022 End: 09-19-2022 ambulatory Araceli Hood APRN.CNP Work Phone: Neurology Comment on above: Orthostatic lighthea dedness (Primary Dx) Start: 09-19-2022 End: 09-19-2022 Telemedicine consultation with patient Araceli Hood ED Work Phone: [facility] Start: 09-03-2022 Refill Gaby Denise Work Phone: [facility] [place] Comment on above: Refill Request; Refi ll Request Start: 07-26-2022 End: 07-26-2022 [facility] Harper Moctezuma PSYD Work Phone: Pain Recovery Comment on above: Generalized anxiety disorder (Primary Dx); Chronic pain syndrome; Pain disorder associated with psychological factors and medical condition Start: 07-04-2022 Telephone encounter Araceli fortune APRN.ENGINE TEST CELL TECHNICIAN Work Phone: Neurology Comment on above: Received Outside Med [facility] Records Start: 07-02-2022 End: 07-02-2022 [facility] Sue Mehta Therapist Work Phone: Pain Recovery Comment on above: Pain disorder associ ated with psychological factors and medical condition (Primary Dx); Generalized anxiety disorder; Chronic pain syndrome Start: 07-01-2022 Telephone encounter Gaby ruvalcaba MD Work Phone: Internal Medicine [place] Comment on above: Medication Question Start: 06-24-2022 Telephone encounter Gaby ruvalcaba MD Work Phone: [facility] [place] Comment on above: Patient Question Start: 06-21-2022 End: 06-21-2022 Patient encounter procedure Lena Olguin APRN.ENGINE TEST CELL TECHNICIAN Work Phone: OB/Gynecology Comment on above: Vaginal irritation ( Primary Dx) Start: 06-18-2022 End: 06-18-2022 Patient encounter procedure Araceli Hood APRN.CNP Work Phone: Neurology Comment on above: 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); Postural dizziness; Chronic migraine without aura without status migrainosus, not intractable; Cognitive impairment; Worsening headaches; Pulsatile tinnitus, bilateral; Blurred vision, right eye Start: 06-14-2022 End: 06-14-2022 [facility] Work Phone: Radiology Comment on above: Right ovarian cyst [ N83.201] Start: 05-24-2022 End: 05-24-2022 Patient encounter procedure Octavio Rothman MD Work Phone: [facility] [place] Comment on above: Chronic left-sided l ow back pain without sciatica (Primary Dx); Generalized anxiety disorder; Chronic neck and back pain Start: 05-04-2022 Telephone encounter Lena [facility] pop SCREEN EXAMINER.ENGINE TEST CELL TECHNICIAN Work Phone: [facility] Comment on above: Results Start: 05-02-2022 End: 05-02-2022 [facility] Work Phone: Radiology Comment on above: Pelvic pain in femal e [R10.2] Start: 05-02-2022 End: 05-02-2022 Patient encounter procedure Lena Olguin APRN.ENGINE TEST CELL TECHNICIAN Work Phone: OB/Gynecology Comment on above: Rapid weight loss (P rimary Dx); Pelvic pain in female; Irregular menstrual cycle Start: 05-01-2022 Telephone encounter Gaby ruvalcaba MD Work Phone: Internal Medicine [place] Comment on above: Patient Question Start: 04-26-2022 Telephone encounter Lena [facility] pop SCREEN EXAMINER.ENGINE TEST CELL TECHNICIAN Work Phone: OB/Gynecology Comment on above: Vaginal Bleeding Start: 04-23-2022 Telephone encounter Gaby ruvalcaba MD Work Phone: Internal Medicine [place] Comment on above: Results Start: 04-10-2022 End: 04-10-2022 Patient encounter procedure Gaby Solis MD Work Phone: Internal Medicine [place] Comment on above: Weight loss (Primary Dx); Elevated blood sugar Start: 02-28-2022 End: 02-28-2022 Patient encounter procedure Octavio Rothman MD Work Phone: [facility] [place] Comment on above: APPOINTMENT CANCELLE D (Primary Dx) Start: 02-28-2022 End: 02-28-2022 Telemedicine consultation with patient Octavio Rothman MD Work Phone: [place] [id number] Start: 01-28-2022 ambulatory Gaby Denise Work Phone: [facility] [place] Comment on above: Physical Form Start: 01-23-2022 End: 01-23-2022 Patient encounter procedure Gaby Solis MD Work Phone: [facility] [place] Comment on above: Annual physical exam (Primary Dx) Start: 01-02-2022 ambulatory Octavio Rothman MD Work Phone: [facility] [place] Comment on above: Baclofen Start: 12-31-2021 End: 12-31-2021 Patient encounter procedure Lena Olguin APRN.ENGINE TEST CELL TECHNICIAN Work Phone: OB/Gynecology Comment on above: Encounter for gyneco logical examination (general) (routine) without abnormal findings (Primary Dx) Start: 12-31-2021 End: 12-31-2021 Patient encounter status Lena Olguin SCREEN EXAMINER.ENGINE TEST CELL TECHNICIAN Work Phone: OB/Gynecology Start: 12-25-2021 End: 12-25-2021 Patient encounter procedure Billy Lynch SCREEN EXAMINER.ENGINE TEST CELL TECHNICIAN Work Phone: [place] Comment on above: Tick bite of right l ower leg, initial encounter (Primary Dx) Start: 12-17-2021 End: 12-17-2021 Patient encounter procedure Emerald Alvarado SCREEN EXAMINER.ENGINE TEST CELL TECHNICIAN Work Phone: Neurology Comment on above: NO SHOW (Primary Dx) Start: 11-30-2021 End: 11-30-2021 Patient encounter procedure Lena Olguin SCREEN EXAMINER.ENGINE TEST CELL TECHNICIAN Work Phone: OB/Gynecology Comment on above: Vaginal irritation ( Primary Dx); Screen for STD (sexually transmitted disease) Start: 11-28-2021 Telephone encounter Gaby ruvalcaba MD Work Phone: [facility] Comment on above: Appointment; Patient Question phone encounter Start: 11-22-2021 Refill Antoinette JamesENGINE TEST CELL TECHNICIAN Work Phone: [facility] [place] Comment on above: Refill Request Start: 10-31-2021 End: 10-31-2021 Subsequent hospital visit by physician Shankar Abad SCREEN EXAMINER - ENGINE TEST CELL TECHNICIAN Work Phone: [facility] Start: 10-30-2021 End: 10-30-2021 Patient encounter procedure Perla Anaya APRN.ENGINE TEST CELL TECHNICIAN Work Phone: OB/Gynecology Comment on above: Dysuria (Primary Dx) ; Pelvic cramping Start: 10-26-2021 End: 10-26-2021 Patient encounter procedure Gaby Solis MD Work Phone: Internal [facility] [place] Comment on above: Urethra disorder (Pr imary Dx); Gastroesophageal reflux disease without esophagitis; Acne, unspecified acne type; Anxiety Start: 10-04-2021 Telephone encounter Lena lord APRN.ENGINE TEST CELL TECHNICIAN Work Phone: OB/Gynecology Comment on above: Results Start: 10-03-2021 Telephone encounter Antoinette Anthony APRN.CNP Work Phone: [facility] [place] Comment on above: Patient Question Start: 10-01-2021 End: 10-01-2021 Subsequent hospital visit by physician Lilian [facility] [place] Work Phone: Radiology Comment on above: Neck pain [M54.2] Start: 10-01-2021 End: 10-01-2021 Patient encounter procedure Antoinette Anthony APRN.ENGINE TEST CELL TECHNICIAN Work Phone: [facility] [place] Comment on above: Inattention (Primary Dx); Neck pain; Decreased sensation; Thrush Start: 08-13-2021 End: 08-13-2021 Patient encounter procedure Lena Olguin APRN.ENGINE TEST CELL TECHNICIAN Work Phone: OB/Gynecology Comment on above: Abrasion of vagina, initial encounter (Primary Dx) Start: 08-08-2021 End: 08-08-2021 Patient encounter procedure Gaby Solis MD Work Phone: Internal Medicine [place] Comment on above: Other chest pain (Pr imary Dx); Gastroesophageal reflux disease without esophagitis Start: 08-03-2021 End: 08-03-2021 Patient encounter procedure Lena Olguin APRN.ENGINE TEST CELL TECHNICIAN Work Phone: OB/Gynecology Comment on above: Screen for STD (sexu ally transmitted disease) (Primary Dx) Start: 07-05-2021 End: 07-05-2021 Subsequent hospital visit by physician Shankar Abad APRN - ENGINE TEST CELL TECHNICIAN Work Phone: [facility] Radiology Start: 06-13-2021 Non-patient / Non-visit MD Gaby ibarra [facility] Start: 06-13-2021 End: 06-13-2021 Admission to same day surgery center MD Gaby Solis [facility] Start: 04-24-2021 ambulatory Gaby Denise Work Phone: Internal Medicine [place] Comment on above: Phlebotomy; Bleeding /Bruising Procedures Date Procedure Procedure Detail Performing Clinician Start: 07-08-2024 Brncdilat rspse spmtry pre&post-brncdilat admn Gaby Solis MD Work Phone: Start: 09-19-2023 Urnls dip stick/tablet rgnt auto w/o microscopy Lena Olguin SCREEN EXAMINER.ENGINE TEST CELL TECHNICIAN Work Phone: Start: 09-05-2023 Urnls dip stick/tablet rgnt auto w/o microscopy Lena Olguin SCREEN EXAMINER.ENGINE TEST CELL TECHNICIAN Work Phone: Start: 08-26-2023 STREP A MOLECULAR (POC) Mary Moore SCREEN EXAMINER.ENGINE TEST CELL TECHNICIAN Work Phone: Start: 01-31-2023 Mri spinal canal cervical w/o contrast bull Parikh SCREEN EXAMINER.ENGINE TEST CELL TECHNICIAN Work Phone: Start: 01-30-2023 Urnls dip stick/tablet rgnt auto w/o microscopy Annita Allred SCREEN EXAMINER.PARTS COUNTER SALESPERSON Work Phone: Start: 01-30-2023 INFLUENZA VACCINE, AGE 6 MO - 64 YR, QUADRIVALENT (AFLURIA, FLULAVAL, FLUZONE) Annita Allred SCREEN EXAMINER.PARTS COUNTER SALESPERSON Work Phone: Start: 12-31-2022 COVID & INFLUENZA A/B & RSV NAAT, ROUTINE Billy Lynch SCREEN EXAMINER.ENGINE TEST CELL TECHNICIAN Work Phone: Start: 12-31-2022 Iadna respiratry probe & rev trnscr 3-5 targets Billy Lynch SCREEN EXAMINER.ENGINE TEST CELL TECHNICIAN Work Phone: Start: 12-31-2022 Sars-cov-2 detection by dna/rna Billy Lynch SCREEN EXAMINER.ENGINE TEST CELL TECHNICIAN Work Phone: Start: 12-31-2022 STREP A MOLECULAR (POC) Kitty Huitron PA-C Work Phone: Start: 06-14-2022 Us transvaginal Lena Evergreen SCREEN EXAMINER.ENGINE TEST CELL TECHNICIAN Work Phone: Start: 05-02-2022 Us transvaginal Lena Clau SCREEN EXAMINER.ENGINE TEST CELL TECHNICIAN Work Phone: Start: 10-31-2021 Radex shoulder arthrography rs&i Shankar Arabella SCREEN EXAMINER - ENGINE TEST CELL TECHNICIAN Work Phone: Start: 10-26-2021 Urnls dip stick/tablet rgnt auto w/o microscopy Gaby Solis MD Work Phone: Start: 10-01-2021 Radex spine cervical 2 or 3 views Antoinette galindo SCREEN EXAMINER.ENGINE TEST CELL TECHNICIAN Work Phone: Start: 08-03-2021 Urnls dip stick/tablet rgnt auto w/o microscopy Lena Evergreen SCREEN EXAMINER.ENGINE TEST CELL TECHNICIAN Work Phone: Start: 07-05-2021 Radex shoulder complete minimum 2 views Shankar Narayanberg SCREEN EXAMINER - [facility] Work Phone: Start: 06-13-2021 Esophagogastroduodenoscopy MD Gaby ruvalcaba Plan of Treatment Date Care Activity Detail Author Start: 01-03-2028 HPV Testing HPV Testing [facility] Start: 01-03-2028 Pap Testing Pap Testing [facility] Start: 01-03-2028 Screening for malignant neoplasm of cervix [facility] Start: 08-24-2025 Urine microalbumin profile [facility] Start: 03-25-2025 Covid-19 Vaccine ( season) Covid-19 Vaccine ( season) [facility] Comment on above: Postponed from 10/26/2023 (Declined at t his time) Start: 01-11-2025 End: 01-11-2025 Patient encounter procedure 01/11/2025 1:00 PM EST Office Visit OB/Gynecology [address] [place] [address] Lena Olguin APRN.ENGINE TEST CELL TECHNICIAN [address] [place] [address] Annual OB/Gynecology Comment on above: Annual Start: 10-25-2024 Influenza vaccination Influenza Vaccine (Season Ended) [facility] Start: 09-22-2024 End: 09-22-2024 Patient encounter procedure 09/22/2024 9:20 AM EDT Office Visit [facility] [place] [address] [place], [place] [id number] Gaby Solis MD [address] [place] [address] follow up 3 months [facility] [place] Comment on above: follow up 3 months Start: 08-23-2024 Influenza vaccination Influenza Vaccine (#1) [place] [facility] Comment on above: Postponed from 10/26/2023 (Declined at t his time) Start: 08-19-2024 End: 08-19-2024 Patient encounter procedure 08/19/2024 10:30 AM EDT Office Visit Otolaryngology [address] [phone] Gloria Jerome MD [address] [id number] : Burning tongue [K14.6] Otolaryngology Comment on above: : Burning tongue [K14.6] Start: 08-12-2024 End: 08-12-2024 ambulatory 08/12/2024 9:00 AM EDT OT/PT/Speech Visit [facility] [address] [place] [address] Dariusz Duncan, PT [address] [place] [address] M54.50,G89.29 (ICD-10-CM) - Chronic left-sided low back pain, unspecified whether sciatica present [facility] Comment on above: M54.50,G89.29 (ICD-10-CM) - Chronic left -sided low back pain, unspecified whether sciatica present Start: 08-05-2024 End: 08-05-2024 ambulatory 08/05/2024 9:00 AM EDT OT/PT/Speech Visit [facility] [address] [place] [address] Dariusz Duncan, PT [address] [place] [address] M54.50,G89.29 (ICD-10-CM) - Chronic left-sided low back pain, unspecified whether sciatica present [facility] Comment on above: M54.50,G89.29 (ICD-10-CM) - Chronic left -sided low back pain, unspecified whether sciatica present Start: 07-29-2024 End: 07-29-2024 ambulatory 07/29/2024 2:15 PM EDT OT/PT/Speech Visit [facility] [address] [place] [address] Dariusz Duncan, PT [address] [place] [address] M54.50,G89.29 (ICD-10-CM) - Chronic left-sided low back pain, unspecified whether sciatica present [facility] Comment on above: M54.50,G89.29 (ICD-10-CM) - Chronic left -sided low back pain, unspecified whether sciatica present Start: 07-29-2024 End: 07-29-2024 Patient encounter procedure 07/29/2024 1:15 PM EDT Office Visit OB/Gynecology [address] [place] [address] Lena Olguin APRN.ENGINE TEST CELL TECHNICIAN [address] [place] [address] Ill tell her then. OB/Gynecology Comment on above: Ill tell her then. Start: 07-22-2024 End: 07-22-2024 ambulatory 07/22/2024 11:30 AM EDT OT/PT/Speech Visit [facility] [address] [place] [address] Dariusz Duncan, PT [address] [place] [address] M54.50,G89.29 (ICD-10-CM) - Chronic left-sided low back pain, unspecified whether sciatica present [facility] Comment on above: M54.50,G89.29 (ICD-10-CM) - Chronic left -sided low back pain, unspecified whether sciatica present Start: 07-13-2024 End: 07-13-2024 ambulatory 07/13/2024 7:45 AM EDT OT/PT/Speech Visit [facility] [address] [place] [address] Dariusz Duncan, PT [address] [place], [place] [address] M54.50,G89.29 (ICD-10-CM) - Chronic left-sided low back pain, unspecified whether sciatica present [facility] Comment on above: M54.50,G89.29 (ICD-10-CM) - Chronic left -sided low back pain, unspecified whether sciatica present Start: 07-08-2024 End: 07-08-2024 ambulatory [facility] Comment on above: SOB (shortness of breath) [R06.02] Start: 07-06-2024 End: 07-06-2024 ambulatory 07/06/2024 10:45 AM EDT OT/PT/Speech Visit [facility] [address] [facility] [place] [address] Daruisz Duncan, PT [address] [facility] [place] [address] Pain, strengthening [facility] Comment on above: Pain, strengthening Start: 06-21-2024 End: 09-20-2024 25-hydroxyvitamin D3 [Mass/volume] in Serum or Plasma [facility] Work Phone: Comment on above: Expected: 06/21/2024, Expires: Start: 06-21-2024 End: 09-20-2024 Ferritin [Mass/volume] in Serum or Plasma [facility] Comment on above: Expected: 06/21/2024, Expires: Start: 06-21-2024 End: 09-20-2024 Iron and Iron binding capacity panel - Serum or Plasma [facility] Comment on above: Expected: 06/21/2024, Expires: Start: 06-21-2024 End: 06-21-2024 Patient encounter procedure 06/21/2024 11:40 AM EDT Office Visit [facility] [place] [address] [place] [address] Antoinette Anthony APRN.ENGINE TEST CELL TECHNICIAN [address] [place] [address] 3 monthy follow up [facility] [place] Comment on above: 3 monthy follow up Start: 06-17-2024 End: 06-17-2024 Distance Health 06/17/2024 5:00 PM EDT [facility] [address] [place], [place] [id number] Octavio Rothman MD [address] [place] [address] Med refill [facility] Comment on above: Med refill Start: 05-31-2024 End: 08-30-2024 C reactive protein [Mass/volume] in Serum or Plasma [facility] Comment on above: Expected: 05/31/2024, Expires: Start: 05-31-2024 End: 08-30-2024 Cobalamin (Vitamin B12) [Mass/volume] in Serum or Plasma [facility] Work Phone: Comment on above: Expected: 05/31/2024, Expires: Start: 05-31-2024 End: 08-30-2024 Comprehensive metabolic 2000 panel - Serum or Plasma [facility] Comment on above: Expected: 05/31/2024, Expires: Start: 05-31-2024 End: 08-30-2024 Erythrocyte sedimentation rate [facility] Comment on above: Expected: 05/31/2024, Expires: Start: 05-31-2024 End: 08-30-2024 Thyrotropin [Units/volume] in Serum or Plasma [facility] Comment on above: Expected: 05/31/2024, Expires: Start: 04-12-2024 End: 04-12-2024 Patient encounter procedure 04/12/2024 10:00 AM EST Office Visit [facility] [address] [place] [address] Nara Ocampo LISW [address] [place] [address] Mind Body [facility] Comment on above: Mind Body Start: 04-09-2024 End: 04-09-2024 ambulatory 04/09/2024 9:30 AM EST Results Only [place] [facility] Draw Station [address] [place] [address] [place] [facility] Draw Station Start: 03-30-2024 End: 03-30-2024 Nursing evaluation of patient and report 03/30/2024 10:30 AM EST Nurse Visit [facility] [place] [address] [place] [address] Nurse, [place] [address] [place] [id number] TB test [facility] [place] Comment on above: TB test Start: 03-25-2024 End: 06-24-2024 25-hydroxyvitamin D3 [Mass/volume] in Serum or Plasma [facility] Comment on above: Expected: 03/25/2024, Expires: Start: 03-25-2024 End: 06-24-2024 CBC panel - Blood by Automated count 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 Work Phone: Comment on above: Expected: 03/11/2024, Expires: Start: 02-04-2024 End: 02-04-2024 ambulatory 02/04/2024 9:00 AM EST [facility] [address] [place] [address] Nara Ocampo LISW [address] [place] [address] [facility] Comment on above: [employer] Start: 02-02-2024 End: 02-02-2024 ambulatory 02/02/2024 9:00 AM EST [facility] [address] [place] [address] Nara Ocampo, RAQUEL [address] [place], [place] [id number] ANA LILIA ZOOM [facility] Comment on above: ANA LILIA BOWENS Start: 01-15-2024 End: 01-15-2024 ambulatory 01/15/2024 9:15 AM EST Results Only [place] [facility] Draw Station [address] [place] [address] [place] [facility] Draw Station Start: 01-14-2024 End: 04-14-2024 BLOOD TB SCREEN BLOOD TB SCREEN Lab Routine Encounter for testing for latent tuberculosis Expected: 01/14/2024, Expires: 04/14/2024 [facility] Work Phone: Comment on above: Expected: 01/14/2024, Expires: Start: 01-09-2024 End: 01-09-2024 Patient encounter procedure 01/09/2024 10:00 AM EST Office Visit OB/Gynecology [address] [place] [address] Lena Olguin APRN.ENGINE TEST CELL TECHNICIAN [address] [place] [address] Annual OB/Gynecology Comment on above: Annual Start: 01-05-2024 End: 04-05-2024 Hepatitis B virus surface Ag [Presence] in Serum HEPATITIS B SURFACE ANTIGEN Lab Routine Screening for STDs (sexually transmitted diseases) Expected: 01/05/2024, Expires: 04/05/2024 [facility] Comment on above: Expected: 01/05/2024, Expires: Start: 01-05-2024 End: 04-05-2024 Hepatitis C virus Ab [Presence] in Serum HEPATITIS C ANTIBODY IA WITH CONFIRMATION Lab Routine Screening for STDs (sexually transmitted diseases) Expected: 01/05/2024, Expires: 04/05/2024 [facility] Comment on above: Expected: 01/05/2024, Expires: Start: 01-05-2024 End: 04-05-2024 HIV 1+2 Ab [Presence] in Serum or Plasma by Immunoassay HIV 1/2 COMBO WITH REFLEX TO DIFFERENTIATION Lab Routine Screening for STDs (sexually transmitted diseases) Expected: 01/05/2024, Expires: 04/05/2024 [facility] Comment on above: Expected: 01/05/2024, Expires: Start: 01-05-2024 End: 04-05-2024 SYPHILIS TREPONEMAL W/REFLEX SYPHILIS TREPONEMAL W/REFLEX Lab Routine Screening for STDs (sexually transmitted diseases) Expected: 01/05/2024, Expires: 04/05/2024 [facility] Work Phone: Comment on above: Expected: 01/05/2024, Expires: Start: 01-05-2024 End: 01-05-2024 Patient encounter procedure 01/05/2024 11:00 AM EST Office Visit OB/Gynecology [address] [place] [address] Lena Olguin APRN.ENGINE TEST CELL TECHNICIAN [address] [place] [address] Annual OB/Gynecology Comment on above: Annual Start: 12-25-2023 End: 12-25-2023 Patient encounter procedure 12/25/2023 1:00 PM EDT Office Visit [facility] [place] [address] [place] [address] Antoinette Anthony APRN.ENGINE TEST CELL TECHNICIAN [address] [place] [address] 3 month follow up [facility] [place] Comment on above: 3 month follow up Start: 12-18-2023 End: 12-18-2023 Patient encounter procedure 12/18/2023 3:00 PM EDT Office Visit [facility] [facility] [address] [place] [address] Nara Ocampo LISW [address] [place] [address] MIND BODY [facility] Comment on above: MIND BODY Start: 12-17-2023 End: 12-17-2023 Patient encounter procedure 12/17/2023 3:00 PM EDT Office Visit Integrated Medicine [address] [place] [address] Nara Ocampo LISW [address] [place] [address] (aware of change) [facility] Comment on above: (aware of change) Start: 12-05-2023 End: 12-05-2023 Patient encounter procedure 12/05/2023 8:20 AM EDT Office Visit [facility] [place] [address] [place] [address] Antoinette Anthony APRN.ENGINE TEST CELL TECHNICIAN [address] [place], [place] [id number] 3 month follow up [facility] [place] Comment on above: 3 month follow up Start: 11-27-2023 End: 11-27-2023 Patient encounter procedure 11/27/2023 3:00 PM EDT Office Visit [facility] [address] [place] [address] Nara Ocampo LISW [address] [place] [address] MIND BODY [facility] Comment on above: MIND BODY Start: 11-20-2023 End: 11-20-2023 Patient encounter procedure 11/20/2023 3:00 PM EDT Office Visit [facility] [address] [place] [address] Nara Ocampo LISW [address] [place] [address] MIND BODY [facility] Comment on above: MIND BODY Start: 11-19-2023 End: 11-19-2023 Patient encounter procedure 11/19/2023 3:00 PM EDT Office Visit [facility] [address] [place] [address] Nara Ocampo LISW [address] [facility] [place] [id number] (aware of change) [facility] Comment on above: (aware of change) Start: 11-13-2023 End: 11-13-2023 Patient encounter procedure 11/13/2023 3:00 PM EDT Office Visit [facility] [address] [place] [address] Nara Ocampo LISW [address] [place] [address] MIND BODY [facility] Comment on above: MIND BODY Start: 10-26-2023 Covid-19 Vaccine () Covid-19 Vaccine () [facility] Start: 10-26-2023 Influenza vaccination Influ[facility] Start: 10-01-2023 End: 12-31-2023 25-hydroxyvitamin D3 [Mass/volume] in Serum or Plasma VITAMIN D 25 HYDROXY Lab Routine Vitamin D deficiency Medication management Expected: 10/01/2023, Expires: 12/31/2023 [facility] Work Phone: Comment on above: Expected: 10/01/2023, Expires: Start: 09-11-2023 End: 09-11-2023 Patient encounter procedure Integrated [facility] Comment on above: follow up MIND BODY Start: 09-05-2023 End: 12-05-2023 Hepatitis B virus surface Ag [Presence] in Serum [facility] Comment on above: Expected: 09/05/2023, Expires: 4 Start: 09-05-2023 End: 12-05-2023 Hepatitis C virus Ab [Presence] in Serum [facility] Comment on above: Expected: 09/05/2023, Expires: 4 Start: 09-05-2023 End: 12-05-2023 HIV 1+2 Ab [Presence] in Serum or Plasma by Immunoassay [facility] Comment on above: Expected: 09/05/2023, Expires: Start: 09-05-2023 End: 12-05-2023 SYPHILIS TOTAL W/REFLEX [facility] Work Phone: Comment on above: Expected: 09/05/2023, Expires: Start: 09-05-2023 End: 09-05-2023 Patient encounter procedure 09/05/2023 8:20 AM EDT Office Visit [facility] [place] [address] [facility] [place] [id number] Antoinette Anthony APRN.ENGINE TEST CELL TECHNICIAN [address] [place] [address] 2 week follow up - per Antoinette [facility] [place] Comment on above: 2 week follow up - per Antoinette Start: 08-26-2023 End: 08-26-2023 Follow-up encounter 08/26/2023 2:00 PM EDT [facility] [place] [address] Nara Ocampo LISW [address] [place] [address] follow up [facility] Comment on above: follow up Start: 08-22-2023 End: 08-22-2023 Patient encounter procedure 08/22/2023 8:20 AM EDT Office Visit [facility] [place] [address] [place] [address] Antoinette Anthony APRN.ENGINE TEST CELL TECHNICIAN [address] [facility] [place] [address] 3 month check with refills [facility] [place] Comment on above: 3 month check with refills Start: 08-20-2023 End: 08-20-2023 ambulatory 08/20/2023 8:10 AM EDT Results Only [facility] [address] [facility] [place] [id number] Labs [facility] Comment on above: Labs Start: 04-16-2023 End: 07-16-2023 CBC W Auto Differential panel - Blood CBC + DIFF Lab Routine Attention deficit disorder, unspecified hyperactivity presence Traumatic brain injury with loss of consciousness, sequela (HCC) Generalized anxiety disorder Depression, unspecified depression type Hair abnormality Brittle nails Expected: 04/16/2023, Expires: 07/16/2023 [facility] Work Phone: Comment on above: Expected: 04/16/2023, Expires: Start: 04-16-2023 End: 07-16-2023 Comprehensive metabolic 2000 panel - Serum or Plasma COMP METABOLIC PANEL Lab Routine Attention deficit disorder, unspecified hyperactivity presence Traumatic brain injury with loss of consciousness, sequela (HCC) Generalized anxiety disorder Depression, unspecified depression type Hair abnormality Brittle nails Expected: 04/16/2023, Expires: 07/16/2023 [facility] Work Phone: Comment on above: Expected: 04/16/2023, Expires: Start: 04-16-2023 End: 07-16-2023 Ferritin [Mass/volume] in Serum or Plasma FERRITIN BLD Lab Routine Hair abnormality Brittle nails Expected: 04/16/2023, Expires: 07/16/2023 [facility] Work Phone: Comment on above: Expected: 04/16/2023, Expires: 4 Start: 04-16-2023 End: 07-16-2023 Iron and Iron binding capacity panel - Serum or Plasma IRON + TIBC Lab Routine Hair abnormality Brittle nails Expected: 04/16/2023, Expires: 07/16/2023 [facility] Work Phone: Comment on above: Expected: 04/16/2023, Expires: 4 Start: 04-16-2023 End: 07-16-2023 Thyrotropin [Units/volume] in Serum or Plasma TSH BLD Lab Routine Hair abnormality Brittle nails Expected: 04/16/2023, Expires: 07/16/2023 [facility] Work Phone: Comment on above: Expected: 04/16/2023, Expires: Start: 04-16-2023 End: 07-16-2023 Thyroxine (T4) free [Mass/volume] in Serum or Plasma T4 FREE/FREE THYROX Lab Routine Hair abnormality Brittle nails Expected: 04/16/2023, Expires: 07/16/2023 [facility] Work Phone: Comment on above: Expected: 04/16/2023, Expires: Start: 04-03-2023 End: 07-03-2023 Hepatitis B virus surface Ag [Presence] in Serum HEP B SURF AG SCRN Lab Routine Oral thrush Acute vaginitis Screen for STD (sexually transmitted disease) Expected: 04/03/2023, Expires: 07/03/2023 [facility] Work Phone: Comment on above: Expected: 04/03/2023, Expires: Start: 04-03-2023 End: 07-03-2023 Hepatitis C virus Ab [Presence] in Serum HEPATITIS C ANTIBODY IA WITH CONFIRMATION Lab Routine Oral thrush Acute vaginitis Screen for STD (sexually transmitted disease) Expected: 04/03/2023, Expires: 07/03/2023 [facility] Work Phone: Comment on above: Expected: 04/03/2023, Expires: Start: 04-03-2023 End: 07-03-2023 HIV 1+2 Ab [Presence] in Serum or Plasma by Immunoassay HIV 1 2 COMBO(AG/AB),WITH REFLEX TO DIFFERENTIATION Lab Routine Oral thrush Acute vaginitis Screen for STD (sexually transmitted disease) Expected: 04/03/2023, Expires: 07/03/2023 [facility] Work Phone: Comment on above: Expected: 04/03/2023, Expires: Start: 04-03-2023 End: 07-03-2023 SYPHILIS TOTAL W/REFLEX SYPHILIS TOTAL W/REFLEX Lab Routine Oral thrush Acute vaginitis Screen for STD (sexually transmitted disease) Expected: 04/03/2023, Expires: 07/03/2023 [facility] Work Phone: Comment on above: Expected: 04/03/2023, Expires: 4 Start: 01-30-2023 End: 05-01-2023 BLOOD TB SCREEN BLOOD TB SCREEN Lab Routine Screening for tuberculosis Routine medical exam Expected: 01/30/2023, Expires: 05/01/2023 [facility] Work Phone: Comment on above: Expected: 01/30/2023, Expires: 4 Start: 01-14-2023 End: 04-15-2023 Borrelia burgdorferi DNA [Presence] in Unspecified specimen by KORY with probe detection [facility] Work Phone: Comment on above: Expected: 01/14/2023, Expires: 4 Start: 10-25-2022 Covid-19 Vaccine () Covid-19 Vaccine () [facility] Start: 10-25-2022 Influenza vaccination [facility] Start: 10-17-2022 End: 12-17-2022 Hepatitis B virus surface Ag [Presence] in Serum [facility] Work Phone: Comment on above: Expected: 10/17/2022, Expires: 3 Start: 10-17-2022 End: 12-17-2022 Hepatitis C virus RNA [Units/volume] (viral load) in Serum or Plasma by KORY with probe detection [facility] Work Phone: Comment on above: Expected: 10/17/2022, Expires: 3 Start: 10-17-2022 End: 12-17-2022 HIV 1+2 Ab [Presence] in Serum or Plasma by Immunoassay [facility] Work Phone: Comment on above: Expected: 10/17/2022, Expires: 3 Start: 10-17-2022 End: 12-17-2022 SYPHILIS TOTAL W/REFLEX [facility] Work Phone: Comment on above: Expected: 10/17/2022, Expires: 3 Start: 09-23-2022 End: 11-23-2022 PAIN PANEL, UR QUANT PAIN PANEL, UR QUANT Lab Routine Chronic pain syndrome Expected: 09/23/2022, Expires: 11/23/2022 [facility] Work Phone: Comment on above: Expected: 09/23/2022, Expires: 3 Start: 09-04-2022 HPV TESTING HPV TESTING [facility] Start: 09-04-2022 PAP TESTING PAP TESTING [facility] Start: 08-23-2022 Influenza vaccination INFLUENZA (#1) [facility] Comment on above: Postponed from 10/25/2021 (Declined at t his time) Start: 07-11-2022 End: 09-10-2022 Hemoglobin A1c in Blood HGB A1C Lab Routine Elevated blood sugar Expected: 07/11/2022, Expires: 09/10/2022 [facility] Work Phone: Comment on above: Expected: 07/11/2022, Expires: 3 Start: 04-10-2022 End: 04-10-2023 Thyrotropin [Units/volume] in Serum or Plasma TSH BLD Lab Routine Weight loss Expected: 04/10/2022, Expires: 04/10/2023 [facility] Work Phone: Comment on above: Expected: 04/10/2022, Expires: 4 Start: 04-10-2022 End: 04-10-2023 Thyroxine (T4) free [Mass/volume] in Serum or Plasma T4 FREE/FREE THYROX Lab Routine Weight loss Expected: 04/10/2022, Expires: 04/10/2023 [facility] Work Phone: Comment on above: Expected: 04/10/2022, Expires: 4 Start: 04-10-2022 End: 04-10-2023 Triiodothyronine (T3) Free [Mass/volume] in Serum or Plasma T3 FREE BLD Lab Routine Weight loss Expected: 04/10/2022, Expires: 04/10/2023 [facility] Work Phone: Comment on above: Expected: 04/10/2022, Expires: 4 Start: 10-26-2021 End: 12-26-2021 HERPES SIMPLEX TYPE 1 AND 2 IG HERPES SIMPLEX TYPE 1 AND 2 IG Lab Routine Urethra disorder Expected: 10/26/2021, Expires: 12/26/2021 [facility] Work Phone: Comment on above: Expected: 10/26/2021, Expires: 2 Start: 10-26-2021 End: 12-26-2021 Herpes simplex virus IgM Ab [Presence] in Serum by Immunoassay HERPES SIMPLEX IGM AB Lab Routine Urethra disorder Expected: 10/26/2021, Expires: 12/26/2021 [facility] Work Phone: Comment on above: Expected: 10/26/2021, Expires: 2 Start: 10-25-2021 Influenza vaccination [facility] Start: 08-03-2021 End: 10-03-2021 Hepatitis B virus surface Ab [Presence] in Serum by Immunoassay HEP B SURF AG SCRN Lab Routine Screen for STD (sexually transmitted disease) Expected: 08/03/2021, Expires: 10/03/2021 [facility] Work Phone: Comment on above: Expected: 08/03/2021, Expires: 2 Start: 08-03-2021 End: 10-03-2021 Hepatitis C virus RNA [Units/volume] (viral load) in Serum or Plasma by KORY with probe detection HCV QUANT RNA BY PCR Lab Routine Screen for STD (sexually transmitted disease) Expected: 08/03/2021, Expires: 10/03/2021 [facility] Work Phone: Comment on above: Expected: 08/03/2021, Expires: 2 Start: 08-03-2021 End: 10-03-2021 HIV 1+2 Ab [Presence] in Serum or Plasma by Immunoassay HIV 1 2 COMBO(AG/AB),WITH REFLEX TO DIFFERENTIATION Lab Routine Screen for STD (sexually transmitted disease) Expected: 08/03/2021, Expires: 10/03/2021 [facility] Work Phone: Comment on above: Expected: 08/03/2021, Expires: 2 Start: 08-03-2021 End: 10-03-2021 SYPHILIS TOTAL W/REFLEX SYPHILIS TOTAL W/REFLEX Lab Routine Screen for STD (sexually transmitted disease) Expected: 08/03/2021, Expires: 10/03/2021 [facility] Work Phone: Comment on above: Expected: 08/03/2021, Expires: 2 Start: 04-04-2021 COVID-19 VACCINE (4 - Booster for Moderna series) COVID-19 VACCINE (4 - Booster for Moderna series) [facility] Start: 04-04-2021 COVID-19 VACCINE (4 - Moderna series) COVID-19 VACCINE (4 - Moderna series) [facility] Start: 2016 Screening for malignant neoplasm of cervix [facility] Start: 06-08-2007 Screening for malignant neoplasm of cervix Pap smear [facility] Start: 2005 DTaP/Tdap/Td vaccine (1 - Tdap) DTaP/Tdap/Td vaccine (1 - Tdap) [facility] Start: 2004 Hepatitis C screening Hepatitis C screen [facility] Start: 2001 HIV screening HIV screen [facility] Start: 1998 Depression Screen Depression Screen [facility] Start: 06-08-1991 COVID-19 Vaccine (1) COVID-19 Vaccine (1) [facility] Start: 06-08-1987 Varicella vaccine (1 of 2 - 2-dose childhood series) Varicella vaccine (1 of 2 - 2-dose childhood series) [facility] Start: 1986 COVID-19 Vaccine (#1) COVID-19 Vaccine (#1) [facility] Bacteria identified in Urine by Culture URINE CULTURE Microbiology Routine Dysuria 10/30/2021 9:[address] [facility] Work Phone: Bacteria identified in Urine by Culture URINE CULTURE Microbiology Routine UTI symptoms 01/30/2023 10:[address] [facility] Work Phone: Bacteria identified in Urine by Culture URINE CULTURE Microbiology Routine Bladder pain 09/19/2023 2:49 PM EDT [facility] BACTERIAL VAGINOSIS AMPLIFICATION BACTERIAL VAGINOSIS AMPLIFICATION Lab Routine Pelvic cramping 10/30/2021 9:[address] [facility] Work Phone: BACTERIAL VAGINOSIS AMPLIFICATION BACTERIAL VAGINOSIS AMPLIFICATION Lab Routine Vaginal irritation 11/30/2021 2:[address] [facility] Work Phone: BACTERIAL VAGINOSIS AMPLIFICATION BACTERIAL VAGINOSIS AMPLIFICATION Lab Routine Vaginal irritation Ordered: 06/21/2022 [facility] Work Phone: Comment on above: Ordered: 06/21/2022 BACTERIAL VAGINOSIS NAAT BACTERI AL VAGINOSIS NAAT Lab Routine Screening for STD (sexually transmitted disease) 09/05/2023 1:36 PM EDT [facility] BACTERIAL VAGINOSIS NAAT BACTERI AL VAGINOSIS NAAT Lab Routine Vaginal discharge 01/05/2024 11:54 AM [facility] BACTERIAL VAGINOSIS NAAT BACTERI AL VAGINOSIS NAAT Lab Routine Vaginal discharge 04/19/2024 10:15 AM [facility] BACTERIAL VAGINOSIS NAAT BACTERI AL VAGINOSIS NAAT Lab Routine Vaginal discharge 07/29/2024 1:54 PM EDT [facility] TEZ / TRICHOMONA S AMPLIFICATION TEZ / TRICHOMONAS AMPLIFICATION Microbiology Routine Pelvic cramping 10/30/2021 9:14 AM [facility] Work Phone: TEZ / TRICHOMONA S AMPLIFICATION TEZ / TRICHOMONAS AMPLIFICATION Microbiology Routine Vaginal irritation 11/30/2021 2:14 PM [facility] Work Phone: TEZ / TRICHOMONA S AMPLIFICATION TZE / TRICHOMONAS AMPLIFICATION Microbiology Routine Vaginal irritation Ordered: 06/21/2022 [facility] Work Phone: Comment on above: Ordered: 06/21/2022 TEZ/TRICHOMONAS NAAT TEZ /TRICHOMONAS NAAT Lab Routine Screening for STD (sexually transmitted disease) [facility] TEZ /TRICHOMONAS NAAT Lab Routine Vaginal discharge 01/05/2024 11:54 AM [facility] TEZ/TRICHOMONAS NAAT TEZ /TRICHOMONAS NAAT Lab Routine Vaginal discharge 04/19/2024 10:15 AM [facility] Work Phone: TEZ/TRICHOMONAS NAAT TEZ /TRICHOMONAS NAAT Lab Routine Vaginal discharge 07/29/2024 1:[address] [facility] Work Phone: Cardiovascular funct ion eval w/tilt table w/mntr TILT TABLE EVALUATION Cardiology Routine Disorder of autonomic nervous system Postural dizziness Ordered: 06/18/2022 [facility] Work Phone: Comment on above: Ordered: 06/18/2022 Chlamydia trachomatis+Neisseria gonorrhoeae DNA [Presence] in Unspecified specimen by KORY with probe detection GC/CHLAMYDIA DNA DET Lab Routine Screen for STD (sexually transmitted disease) 08/03/2021 10:40 AM [facility] Work Phone: Chlamydia trachomatis+Neisseria gonorrhoeae DNA [Presence] in Unspecified specimen by KORY with probe detection GC/CHLAMYDIA DNA DET Lab Routine Screen for STD (sexually transmitted disease) 11/30/2021 2:[address] [facility] Work Phone: Chlamydia trachomatis+Neisseria gonorrhoeae DNA [Presence] in Unspecified specimen by KORY with probe detection GONORRHEA/CHLAMYDIA NAAT Lab Routine Screen for STD (sexually transmitted disease) 10/17/2022 9:46 AM [facility] Work Phone: Chlamydia trachomatis+Neisseria gonorrhoeae DNA [Presence] in Unspecified specimen by KORY with probe detection GONORRHEA/CHLAMYDIA NAAT Lab Routine Screen for STD (sexually transmitted disease) 05/05/2023 3:09 PM [facility] Work Phone: Chlamydia trachomatis+Neisseria gonorrhoeae DNA [Presence] in Unspecified specimen by OKRY with probe detection GONORRHEA/CHLAMYDIA NAAT Lab Routine Screening for STD (sexually transmitted disease) 09/05/2023 1:36 PM [facility] Chlamydia trachomatis+Neisseria gonorrhoeae DNA [Presence] in Unspecified specimen by KORY with probe detection GONORRHEA/CHLAMYDIA NAAT Lab Routine Vaginal discharge 01/05/2024 11:54 AM [facility] End: 08-08-2022 ECG COMPLETE ECG COMPLETE ECG Routine Other chest pain 1 Occurrences starting 08/08/2021 until 08/08/2022 [facility] Work Phone: Comment on above: 1 Occurrences starting 08/08/2021 until 08/08/2022 ECG COMPLETE ECG COMPLETE ECG Routine Tachycardia Cardiac arrhythmia, unspecified cardiac arrhythmia type Ordered: 05/31/2024 [facility] Comment on above: Ordered: 05/31/2024 End: 07-21-2025 LUNG VOLUMES LUNG VOLUMES PFT Routine SOB (shortness of breath) 1 Occurrences starting 06/21/2024 until 07/21/2025 [facility] Comment on above: 1 Occurrences starting 06/21/2024 until 07/21/2025 End: 07-18-2023 Mra head w/o contrst material MRA BRAIN WO IVCON Radiology Routine Worsening headaches Pulsatile tinnitus, bilateral Blurred vision, right eye 1 Occurrences starting 06/18/2022 until 07/18/2023 [facility] Work Phone: Comment on above: 1 Occurrences starting 06/18/2022 until 07/18/2023 End: 07-18-2023 Mri brain brain stem w/o w/contrast material MRI BRAIN WO/W IVCON Radiology Routine Worsening headaches Pulsatile tinnitus, bilateral Blurred vision, right eye 1 Occurrences starting 06/18/2022 until 07/18/2023 [facility] Work Phone: Comment on above: 1 Occurrences starting 06/18/2022 until 07/18/2023 End: 10-31-2021 MRI UPPER EXTREMITY RIGHT W JT W CONTRAST [facility] Work Phone: Comment on above: Once for 1 Occurrences starting 11/01/19 until 10/31/2021 Patient referral [facility] Work Phone: PPD (TB INTRADERMAL [id number]) B/O PPD (TB INTRADERMAL [id number]) B/O Procedures Routine Visit for TB skin test Ordered: 03/25/2024 [facility] Comment on above: Ordered: 03/25/2024 End: 10-31-2022 Radex spine cervical 2 or 3 views XR CERV GENERAL 2V AP/LAT Radiology Routine Neck pain 1 Occurrences starting 10/01/2021 until 10/31/2022 [facility] Work Phone: Comment on above: 1 Occurrences starting 10/01/2021 until 10/31/2022 Radex spine cervical 2 or 3 views XR CERV GENERAL 2V AP/LAT Radiology Routine Neck pain 10/01/2021 12:02 PM [facility] Work Phone: End: 07-21-2025 SPIROMETRY - BASELINE AND POST DILATOR SPIROMETRY - BASELINE AND POST DILATOR PFT Routine SOB (shortness of breath) 1 Occurrences starting 06/21/2024 until 07/21/2025 [facility] Comment on above: 1 Occurrences starting 06/21/2024 until 07/21/2025 Trichomonas vaginali s Ag [Presence] in Genital specimen by Immunoassay TRICHOMONAS PREP/ANTIGEN Microbiology Routine Screen for STD (sexually transmitted disease) 08/03/2021 10:40 AM [facility] Work Phone: TRICHOMONAS VAGINALI S NAAT TRICHOMONAS VAGINALIS NAAT Lab Routine Screen for STD (sexually transmitted disease) 10/17/2022 9:46 AM [facility] Work Phone: TRICHOMONAS VAGINALI S NAAT TRICHOMONAS VAGINALIS NAAT Lab Routine Screen for STD (sexually transmitted disease) 05/05/2023 3:09 PM [facility] Work Phone: UROGENITAL UR/MYCOPL ASMA PCR UROGENITAL UR/MYCOPLASMA PCR Lab Routine Dysuria 10/30/2021 9:14 AM [facility] Work Phone: UROGENITAL UREAPLASM A AND MYCOPLASMA SPECIES BY PCR, FOR GENITAL, RECTAL, URINE SAMPLES UROGENITAL UREAPLASMA AND MYCOPLASMA SPECIES BY PCR, FOR GENITAL, RECTAL, URINE SAMPLES Lab Routine Bladder pain 09/19/2023 2:49 PM [facility] Work Phone: UROGENITAL UREAPLASM A AND MYCOPLASMA SPECIES BY PCR, FOR GENITAL, RECTAL, URINE SAMPLES UROGENITAL UREAPLASMA AND MYCOPLASMA SPECIES BY PCR, FOR GENITAL, RECTAL, URINE SAMPLES Lab Routine Vaginal discharge 07/29/2024 1:54 PM [facility] End: 06-01-2023 Us transvaginal US FEMALE PELVIS TRANSVAG Radiology Routine Pelvic pain in female 1 Occurrences starting 05/02/2022 until 06/01/2023 [facility] Work Phone: Comment on above: 1 Occurrences starting 05/02/2022 until 06/01/2023 Us transvaginal US FEMALE PELVIS TRANSVAG Radiology Routine Pelvic pain in female 05/02/2022 4:[address] [facility] Work Phone: End: 06-03-2023 Us transvaginal US FEMALE PELVIS TRANSVAG Radiology Routine Right ovarian cyst 1 Occurrences starting 05/04/2022 until 06/03/2023 [facility] Work Phone: Comment on above: 1 Occurrences starting 05/04/2022 until 06/03/2023 [facility] c [facility] c [facility] c [facility] c [facility] c [facility] c [facility] c [facility] c [facility] c [facility] c [facility] c [facility] c [facility] c [facility] c [facility] c [facility] Immunizations Immunization Date Immunization Notes Care Provider Fa cili 01-30-2023 influenza, injectabl e, quadrivalent, contains preservative Annita Allred SCREEN EXAMINER.PARTS COUNTER SALESPERSON Work Phone: [facility] 01-30-2023 influenza virus vaccine, unspecified formulation Ector Bautista SCREEN EXAMINER.ENGINE TEST CELL TECHNICIAN Work Phone: [facility] 02-07-2021 Fantasma (Pinky) MD Gaby Solis [facility] Work Phone: 01-25-2021 influenza, seasonal, injectable MD Gaby Solis [facility] Work Phone: 01-25-2021 influenza, seasonal, injectable, preservative free Annita Allred SCREEN EXAMINER.PARTS COUNTER SALESPERSON Work Phone: [facility] 01-25-2021 influenza virus vaccine, unspecified formulation Octavio Rothman MD Work Phone: [facility] 07-23-2019 hepatitis B vaccine, adult dosage Lena Clau SCREEN EXAMINER.ENGINE TEST CELL TECHNICIAN Work Phone: [facility] Work Phone: 12-14-2018 hepatitis B vaccine, adult dosage Lena Clau SCREEN EXAMINER.ENGINE TEST CELL TECHNICIAN Work Phone: [facility] Work Phone: 11-18-2018 tuberculin skin test ; purified protein derivative solution, intradermal Antoinette Older SCREEN EXAMINER.ENGINE TEST CELL TECHNICIAN Work Phone: [facility] 11-13-2018 hepatitis B vaccine, adult dosage Lena Evergreen SCREEN EXAMINER.ENGINE TEST CELL TECHNICIAN Work Phone: [facility] Work Phone: 11-13-2018 influenza, injectabl e, quadrivalent, contains preservative Lena Clau SCREEN EXAMINER.ENGINE TEST CELL TECHNICIAN Work Phone: [facility] Work Phone: 11-10-2018 tuberculin skin test ; purified protein derivative solution, intradermal Antoinette Older SCREEN EXAMINER.ENGINE TEST CELL TECHNICIAN Work Phone: [facility] 08-25-2015 tetanus toxoid, reduced diphtheria toxoid, and acellular pertussis vaccine, adsorbed Lena Evergreen SCREEN EXAMINER.ENGINE TEST CELL TECHNICIAN Work Phone: [facility] Work Phone: 02-12-2012 influenza virus vaccine, whole virus Annita Allred SCREEN EXAMINER.PARTS COUNTER SALESPERSON Work Phone: [facility] 11-30-2007 human papilloma viru s vaccine, quadrivalent Lena Clau SCREEN EXAMINER.ENGINE TEST CELL TECHNICIAN Work Phone: [facility] Work Phone: 07-27-2007 human papilloma viru s vaccine, quadrivalent Lena Evergreen SCREEN EXAMINER.ENGINE TEST CELL TECHNICIAN Work Phone: [facility] Work Phone: 06-02-2007 human papilloma viru s vaccine, quadrivalent Lena Clau SCREEN EXAMINER.ENGINE TEST CELL TECHNICIAN Work Phone: [facility] 06-02-2007 tetanus toxoid, reduced diphtheria toxoid, and acellular pertussis vaccine, adsorbed Lena Clau SCREEN EXAMINER.ENGINE TEST CELL TECHNICIAN Work Phone: [facility] Work Phone: 12-04-2005 meningococcal ACWY vaccine, unspecified formulation Annita Allred SCREEN EXAMINER.PARTS COUNTER SALESPERSON Work Phone: [facility] 03-12-2000 hepatitis B vaccine, pediatric or pediatric/adolescent dosage Annita Allred SCREEN EXAMINER.PARTS COUNTER SALESPERSON Work Phone: [facility] 12-05-1999 hepatitis B vaccine, pediatric or pediatric/adolescent dosage Annita Allred SCREEN EXAMINER.PARTS COUNTER SALESPERSON Work Phone: [facility] 09-05-1999 hepatitis B vaccine, pediatric or pediatric/adolescent dosage Annita Allred SCREEN EXAMINER.PARTS COUNTER SALESPERSON Work Phone: [facility] 09-05-1999 measles, mumps and rubella virus vaccine Annita Allred SCREEN EXAMINER.PARTS COUNTER SALESPERSON Work Phone: [facility] 04-17-1994 TD(adult) unspecifie d formulation Annita Allred SCREEN EXAMINER.PARTS COUNTER SALESPERSON Work Phone: [facility] 04-17-1994 trivalent poliovirus vaccine, live, oral Annita Chalino SCREEN EXAMINER.PARTS COUNTER SALESPERSON Work Phone: [facility] 10-24-1988 tuberculin skin test ; purified protein derivative solution, intradermal Antoinette Anthony SCREEN EXAMINER.ENGINE TEST CELL TECHNICIAN Work Phone: [facility] 01-30-1988 diphtheria, tetanus toxoids and pertussis vaccine Annita Allred SCREEN EXAMINER.PARTS COUNTER SALESPERSON Work Phone: [facility] 01-30-1988 DTP-Haemophilus influenzae type b conjugate vaccine Lena Clau SCREEN EXAMINER.ENGINE TEST CELL TECHNICIAN Work Phone: [facility] 01-30-1988 haemophilus influenz ae type b vaccine, HbOC conjugate Lena Evergreen SCREEN EXAMINER.ENGINE TEST CELL TECHNICIAN Work Phone: [facility] Work Phone: 01-30-1988 haemophilus influenz ae type b vaccine, PRP-D conjugate Annita Allred SCREEN EXAMINER.PARTS COUNTER SALESPERSON Work Phone: [facility] 01-30-1988 measles, mumps and rubella virus vaccine Lena Clau SCREEN EXAMINER.ENGINE TEST CELL TECHNICIAN Work Phone: [facility] 01-30-1988 trivalent poliovirus vaccine, live, oral Lena Calu SCREEN EXAMINER.ENGINE TEST CELL TECHNICIAN Work Phone: [facility] 02-14-1987 diphtheria, tetanus toxoids and pertussis vaccine Annita Allred SCREEN EXAMINER.PARTS COUNTER SALESPERSON Work Phone: [facility] 02-14-1987 DTP-Haemophilus influenzae type b conjugate vaccine Lena Clau SCREEN EXAMINER.ENGINE TEST CELL TECHNICIAN Work Phone: [facility] 1986 diphtheria, tetanus toxoids and pertussis vaccine Annita Allred SCREEN EXAMINER.PARTS COUNTER SALESPERSON Work Phone: [facility] 1986 DTP-Haemophilus influenzae type b conjugate vaccine Lena Evergreen SCREEN EXAMINER.ENGINE TEST CELL TECHNICIAN Work Phone: [facility] 1986 trivalent poliovirus vaccine, live, oral Lena Evergreen SCREEN EXAMINER.ENGINE TEST CELL TECHNICIAN Work Phone: [facility] 1986 diphtheria, tetanus toxoids and pertussis vaccine Annita Allred SCREEN EXAMINER.PARTS COUNTER SALESPERSON Work Phone: [facility] 1986 DTP-Haemophilus influenzae type b conjugate vaccine Lena Clau SCREEN EXAMINER.ENGINE TEST CELL TECHNICIAN Work Phone: [facility] 1986 trivalent poliovirus vaccine, live, oral Lena Evergreen SCREEN EXAMINER.ENGINE TEST CELL TECHNICIAN Work Phone: [facility] NEGATED: Highlighted row has not occurred!03-25-2024 tuberculin skin test; purified protein derivative solution, intradermal Antoinette Anthony APRN.CNP Work Phone: [facility] Comment on above: Deferred: Postponed - Will be given in upcoming nurse visit 03/30 Payers Date Payer Category Payer Unknown [employer]MO [employer] PPO [id number] 2023-Present [phone] [address] [place] [address] PPO [id number] 2023 Unknown [id number] 2018 Medicaid [employer] [id number] 2018-Present [phone] [address] [place] [address] Medicaid [id number] 2017 Medicaid [id number] 2015 Medicaid [id number] Self-pay SELF PAY INSURANCE [id number] Unknown SELF PAY INSURANCE [id number] Social History Date Type Detail Facility [facility] Work Phone: Start: 06-08-2021 Tobacco smoking status NHIS Unknown if ever smoked [facility] Start: 01-11-2019 None [facility] Work Phone: Start: 1985 Sex Assigned At Female [facility] Work Phone: Start: 1985 Sex Assigned At Not on file [facility] Work Phone: Start: 04-23-2017 End: 12-25-2023 Tobacco smoking status NHIS Ex-smoker [facility] End: 12-25-2016 History of tobacco use Current smoker [facility] End: 12-25-2016 History of tobacco use Cigarette Smoker [facility] Start: 04-23-2017 End: 12-25-2023 Tobacco use and exposure Smokeless tobacco non-user [facility] Start: 08-03-2021 End: 08-13-2021 Alcohol intake Current drinker of alcohol (finding) [facility] Start: 12-20-2019 History SDOH Alcohol Frequency 3 [facility] Start: 12-20-2019 End: 09-14-2020 History SDOH Alcohol Std Drinks 1 [facility] Start: 06-08-2018 History SDOH Alcohol Comment seldom [facility] Start: 12-20-2019 End: 09-14-2020 History SDOH Social Connections Phone 2 [facility] Start: 12-20-2019 History SDOH Social Connections Living 5 [facility] Start: 11-08-2019 Education 17 [facility] Start: 07-24-2021 End: 01-23-2022 Exposure to SARS-CoV-2 (event) Not sure [facility] Work Phone: Start: 10-13-2021 Tobacco Comment A few cigarettes per week. [facility] Start: 12-20-2019 End: 06-27-2022 History of Social function [facility] Work Phone: Start: 12-20-2019 End: 06-27-2022 Social connection and isolation panel [facility] Work Phone: Do you belong to any clubs or organizations such as bahai groups, unions, fraternal or athletic groups, or school groups? No [facility] Work Phone: Are you now , , , , never or living with a partner? [facility] Work Phone: How often to you hav e a drink containing alcohol? 2-4 times a month [facility] Work Phone: How many standard dr inks containing alcohol do you have on a typical day? 1 or 2 [facility] Work Phone: How often do you hav e 6 or more drinks on 1 occasion? Never [facility] Work Phone: How hard is it for y ou to pay for the very basics like food, housing, medical care, and heating Not hard at all [facility] Work Phone: Do you feel stress - tense, restless, nervous, or anxious, or unable to sleep at night because your mind is troubled all the time - these days [OSQ] To some extent [facility] Work Phone: (I/We) worried wheth er (my/our) food would run out before (I/we) got money to buy more. Never true [facility] Work Phone: Start: 11-08-2019 Sexual orientation Heterosexual (finding) [facility] How many standard dr inks containing alcohol do you have on a typical day? 3 or 4 [facility] Do you feel stress - tense, restless, nervous, or anxious, or unable to sleep at night because your mind is troubled all the time - these days [OSQ] Not at all [facility] Start: 10-10-2022 Gender identity Identifies as female gender (finding) [facility] Start: 09-05-2023 End: 08-19-2024 Alcohol intake Ex-drinker (finding) [facility] Medical Equipment Procedure Code Equipment Code Equipment Origin al Text Equipment Identifier Dates Check BG when symptomatic up to 3x daily - fill brand covered by insurance Start: 06-03-2022 End: 08-09-2022 Comment on above: Check BG when sympto matic up to 3x daily - fill brand covered by insurance Mental Status Date Assessment Result Facility 06-13-2021 Cognitive function Voice/Name [facility] Work Phone: Clinical Notes 08-25-2009 to 08-19-2024 Gloria Jerome MD - 08/19/2024 10:40 AM Dariusz Lopez, PT - 08/12/2024 9:55 AM Dariusz Lopez, PT - 08/12/2024 9:07 AM Dariusz Lopez, PT - 08/05/2024 3:44 PM EDT Note Date & Type Note Facility 08-19-2024 Note HNO ID: [id number] Author: GLORIA JEROME MD Service: ? Author Type: Physician Type: Progress Notes Filed: 08/19/2024 11:07 Note Text: SILVIA Carver is a 39 year old female who presents with dry mouth burning tongue. Patient is seen in consultation for Antoinette anthony CNP. Patient states since March she has had a dry mouth and a burning tongue. Patient presently has no dental symptoms but was placed on an antibiotic for extended period of time for dental infection and also was placed on antifungal. Patient is also bothered by the how her tongue looks.. ROS General Weight loss: No Fatigue: No Night sweats:No Cardiac Chest pain:No Fast heart rate:No Swelling in the feet:No Respiratory Short of breath:No Cough:No Wheezing:No Gastrointestinal Nausea:No Vomiting:No Indigestion:No Past medical history, family history, and social history reviewed. PE [facility] 07/25/2024 (Within Weeks) General: Patient is awake, alert, NAD. Voice is normal. Skin: normal Eyes: Extraocular motion and Gaze is normal. Ears: Right external auditory canal is normal. TMJ: normal. Right tympanic membranes normal. Left external auditory canal is normal. Left tympanic membrane normal. Nose: Septum is normal. Turbinates are normal. Nasopharynx:normal Oral Cavity/Oropharynx: Lips normal Dentition normal Tongue normal. Tonsils normal. Palate and uvula normal. Pharynx posterior normal Hypopharynx: Base of tongue normal Pyriform sinus normal. Larynx: Vocal cords normal. Epiglottis normal. Post cricoid normal. Salivary glands: Parotid normal. Submandibular and sublingual normal. Thyroid: normal. Lymphatic/Neck: Lymph nodes normal. Neurologic: Facial nerve normal. ASSESSMENT/PLAN: 1. Xerostomia - ICD9: 527.7, ICD10: K11.7 (primary diagnosis) 2. Burning tongue - ICD9: 529.6, ICD10: K14.6 I explained the patient that her physical exam is normal with no evidence of any infection or fungus and that typically this may be more related to her stress anxiety or ADHD. I have recommended that she takes a low-dose tricyclic antidepressant which she is declined. I have also recommended that she stop brushing her tongue since that may be complicating her symptoms. Patient was obviously not happy with my evaluation so I recommended that she get a second opinion Gloria Jerome MD Findings will be communicated to the referring physician via mail or electronic medical record. [facility] 08-19-2024 History of Present illness Narrative HPI Johanna Carver is a 39 year old female who presents with dry mouth burning tongue. Patient is seen in consultation for Antoinette anthony CNP. Patient states since March she has had a dry mouth and a burning tongue. Patient presently has no dental symptoms but was placed on an antibiotic for extended period of time for dental infection and also was placed on antifungal. Patient is also bothered by the how her tongue looks.. ROS General Weight loss: No Fatigue: No Night sweats:No Cardiac Chest pain:No Fast heart rate:No Swelling in the feet:No Respiratory Short of breath:No Cough:No Wheezing:No Gastrointestinal Nausea:No Vomiting:No Indigestion:No Past medical history, family history, and social history reviewed. PE [facility] 07/25/2024 (Within Weeks) General: Patient is awake, alert, NAD. Voice is normal. Skin: normal Eyes: Extraocular motion and Gaze is normal. Ears: Right external auditory canal is normal. TMJ: normal. Right tympanic membranes normal. Left external auditory canal is normal. Left tympanic membrane normal. Nose: Septum is normal. Turbinates are normal. Nasopharynx:normal Oral Cavity/Oropharynx: Lips normal Dentition normal Tongue normal. Tonsils normal. Palate and uvula normal. Pharynx posterior normal Hypopharynx: Base of tongue normal Pyriform sinus normal. Larynx: Vocal cords normal. Epiglottis normal. Post cricoid normal. Salivary glands: Parotid normal. Submandibular and sublingual normal. Thyroid: normal. Lymphatic/Neck: Lymph nodes normal. Neurologic: Facial nerve normal. ASSESSMENT/PLAN: 1. Xerostomia - ICD9: 527.7, ICD10: K11.7 (primary diagnosis) 2. Burning tongue - ICD9: 529.6, ICD10: K14.6 I explained the patient that her physical exam is normal with no evidence of any infection or fungus and that typically this may be more related to her stress anxiety or ADHD. I have recommended that she takes a low-dose tricyclic antidepressant which she is declined. I have also recommended that she stop brushing her tongue since that may be complicating her symptoms. Patient was obviously not happy with my evaluation so I recommended that she get a second opinion Gloria Jerome MD Findings will be communicated to the referring physician via mail or electronic medical record. documented in this encounter [facility] 08-12-2024 History of Present illness Narrative Program_ID:[id number] Access Code: [email or web address] URL: [email or web address] Date: 08-12-2024 Prepared By: Dariusz Duncan Program Notes Exercises - Self Release - 1 x daily - 7 x weekly - sets - reps - Sidelying Hip Abduction - 2 x daily - 7 x weekly - 2-3 sets - 12-15 reps - Sidelying Diagonal Hip Abduction - 2 x daily - 7 x weekly - 2 sets - 8-12 reps - Isometric Glute Med at Wall - 2 x daily - 7 x weekly - 2 sets - 10 reps - Sidelying Reverse Clamshell with Resistance - 2 x daily - 7 x weekly - 2 sets - 10 reps - Side Stepping with Resistance at Ankles - 2 x daily - 7 x weekly - sets - 3-5 reps - Sidelying Diagonal Hip Abduction - 2 x daily - 7 x weekly - 2 sets - 8-12 reps - Single Leg Clock Reach - 2 x daily - 7 x weekly - 2 sets - 8-10 reps Images from the original note were not included. Episode Visit Count: 6 Therapist That Will Accept/Oversee The Plan Of Care: Dariusz Duncan PT. Start of Care Date: 07/06/24 Onset Date: 06/06/24 Plan of Care Certification Date: 07/06/24 Next Certification Due Date: 08/13/24 Patient Identified by Name and Date of : Yes REHABILITATION AND SPORTS THERAPY PHYSICAL THERAPY DISCONTINUANCE OF CARE PLAN OF CARE UPDATE: Assessment: Johanna Carver is discontinued from Physical Therapy services due to goal achievement.. Patient was seen for 6 visits from Start of Care Date: 07/06/24 to 08/12/2024 and treatment included: Therapeutic exercise and Manual therapy. Updated: 08/12/24. Goals for Episode of Care: established 07/06/24 Patient reported outcome of pain Interference will decrease T -score by a minimum of 5 points. (Not updated in note) [place] in home exercise program. (Goal Met) Patient will increase flexibility of L Hip Internal Rotators. (Goal Met) Increased strength of Hip ABD (bilat) and L ER to 5/5 mmt for improved performance of functional activities. (Goal Met) Restore pain-free lumbar ROM to WNL to allow for improved functional mobility. (Goal Met) Restore pain-free L Hip ER A/PROM. (Goal Met) Decrease soft tissue tenderness grossly for improvements in pain and improved QOL. (Goal Met) Patient Goals: Alleviate Pain. (Goal Met) SUBJECTIVE: Patient reports after last session not noticing pain as much. Patient reports the pain is improved and a lot better. Feels like sometimes she notices it but not much, and then she usually stretches it and this will diminish the pain/soreness and it stops. States she is a lot more active then general. Patient reports intermittent completion. Also, going to the gym every other day. Sometimes she feels like she exhaust herself, states can be at gym for 1.5-2 hrs. Functional Limitations: nothing Pain: Pain Pain Level: 0 (Denies pain today.) Post Treatment Pain Post Treatment Pain Level: No Change PROMIS Scales 08/12/2024 07/22/2024 07/12/2024 Higher is Better Phys Func - T Score 56 (within normal limits) 60 (within normal limits) Phys Func - Percentile 73 84 Self-Eff Symptom - T Score 50 (Average) Self-Eff Symptom - Percentile 50 06/14/2024 04/05/2024 02/24/2023 Lower is Better Pain Interference - T Score 60 (mild) 62 (moderate) 56 (mild) Pain Interference - Percentile 16 12 27 T-scores: mean of general population = 50. 5 points is clinically meaningfully difference Percentiles provide an indication of how the patient's score ranks in relation to the general population. Higher percentile rankings indicate better function/quality of life. 50th percentile is the average of the general population and indicates half of respondents had a worse score. OBJECTIVE MEASURES WITH LEVEL OF FUNCTION: Lumbar Spine AROM Lumbar Flexion: Normal Lumbar Extension: Normal Lumbar R Side [place]: Normal Lumbar L Side [place]: Normal Lumbar R Side-Bend: Normal Lumbar L Side-Bend: Normal Lumbar R Rotation: Normal Lumbar L Rotation: Normal LE AROM R Hip Internal Rotation: 45 Degrees R Hip External Rotation: 45 Degrees L Hip Internal Rotation: 45 Degrees L Hip External Rotation: 45 Degrees LE Flexibility R Hamstring Flexibility: Normal L Hamstring Flexibility: Normal R Kael Test: Negative L Kael Test: Negative LE Strength Trunk Strength: 5/5 R LE Strength: Grossly 5/5 L LE Strength: Grossly 5/5 Special Tests - Hip and Spine SLR Test: Left Negative, Right Negative Prone Instability Test: Negative IVAN Test: Right Negative, Left Negative Gait Gait Observation: Normal TREATMENT: Therapeutic Exercise: 1: Re-assessment results were reviewed with patient and used as rationale for plan of care recommendations. 2: Pt. condition and goals assessed. HEP was reviewed and the patient was instructed to continue with HEP to tolerance. 3: Hoist Pallof w/ [place] movement: 1x15 each way, 1plate/1round 4: Hoist Low-to-high chops: 1x10 each., 1plate. 5: Hoist [place] Walkouts: 1x10 each., 1plate. 6: Hoist Pallof Press: 2x10 each., 1plate/2rounds 7: S/L Hip Diagonal ABD: 2x10 each. 9: Time spent on education in how to progress HEP/gym exercises appropriately and to tolerance. Patient was emailed advance core strength and low back stability exercises and we discussed these as well. 10: Education in soft tissue massage against wall vs irritated soft tissue. Discussed to hold against tender spots for 5-10 seconds. Skilled Intervention: Patient was educated in proper exercise technique and purpose for exercises. Reviewed and educated patient on additions/changes for home exercise program as above (*). Skilled judgment was used in selection of appropriate interventions. Provided written instruction for home exercise program to facilitate proper performance and compliance. Correct performance of therapeutic exercises was facilitated with verbal, visual, and tactile cuing. Patient education as noted () Billing Therapeutic Exercise Treatment Minutes: 55 Skilled Treatment Time Minutes (timed and untimed codes): 55 Total Session Time (minutes): 55 Session Start Time : 904 Session Stop Time : 1000 Dariusz Duncan PT documented in this encounter [facility] 08-12-2024 Note HNO ID: [id number] Author: DARIUSZ DUNCAN PT Service: ? Author Type: Physical Therapist Type: Progress Notes Filed: 08/12/2024 11:33 Note Text: Episode Visit Count: 6 Therapist That Will Accept/Oversee The Plan Of Care: Dariusz Duncan PT. Start of Care Date: 07/06/24 Onset Date: 06/06/24 Plan of Care Certification Date: 07/06/24 Next Certification Due Date: 08/13/24 Patient Identified by Name and Date of : Yes REHABILITATION AND SPORTS THERAPY PHYSICAL THERAPY DISCONTINUANCE OF CARE PLAN OF CARE UPDATE: Assessment: Johanna Carver is discontinued from Physical Therapy services due to goal achievement.. Patient was seen for 6 visits from Start of Care Date: 07/06/24 to 08/12/2024 and treatment included: Therapeutic exercise and Manual therapy. Updated: 08/12/24. Goals for Episode of Care: established 07/06/24 Patient reported outcome of pain Interference will decrease T -score by a minimum of 5 points. (Not updated in note) [place] in home exercise program. (Goal Met) Patient will increase flexibility of L Hip Internal Rotators. (Goal Met) Increased strength of Hip ABD (bilat) and L ER to 5/5 mmt for improved performance of functional activities. (Goal Met) Restore pain-free lumbar ROM to WNL to allow for improved functional mobility. (Goal Met) Restore pain-free L Hip ER A/PROM. (Goal Met) Decrease soft tissue tenderness grossly for improvements in pain and improved QOL. (Goal Met) Patient Goals: Alleviate Pain. (Goal Met) SUBJECTIVE: Patient reports after last session not noticing pain as much. Patient reports the pain is improved and a lot better. Feels like sometimes she notices it but not much, and then she usually stretches it and this will diminish the pain/soreness and it stops. States she is a lot more active then general. Patient reports intermittent completion. Also, going to the gym every other day. Sometimes she feels like she exhaust herself, states can be at gym for 1.5-2 hrs. Functional Limitations: nothing Pain: Pain Pain Level: 0 (Denies pain today.) Post Treatment Pain Post Treatment Pain Level: No Change PROMIS Scales 08/12/2024 07/22/2024 07/12/2024 Higher is Better Phys Func - T Score 56 (within normal limits) 60 (within normal limits) Phys Func - Percentile 73 84 Self-Eff Symptom - T Score 50 (Average) Self-Eff Symptom - Percentile 50 06/14/2024 04/05/2024 02/24/2023 Lower is Better Pain Interference - T Score 60 (mild) 62 (moderate) 56 (mild) Pain Interference - Percentile 16 12 27 T-scores: mean of general population = 50. 5 points is clinically meaningfully difference Percentiles provide an indication of how the patient's score ranks in relation to the general population. Higher percentile rankings indicate better function/quality of life. 50th percentile is the average of the general population and indicates half of respondents had a worse score. OBJECTIVE MEASURES WITH LEVEL OF FUNCTION: Lumbar Spine AROM Lumbar Flexion: Normal Lumbar Extension: Normal Lumbar R Side [place]: Normal Lumbar L Side [place]: Normal Lumbar R Side-Bend: Normal Lumbar L Side-Bend: Normal Lumbar R Rotation: Normal Lumbar L Rotation: Normal LE AROM R Hip Internal Rotation: 45 Degrees R Hip External Rotation: 45 Degrees L Hip Internal Rotation: 45 Degrees L Hip External Rotation: 45 Degrees LE Flexibility R Hamstring Flexibility: Normal L Hamstring Flexibility: Normal R Kael Test: Negative L Kael Test: Negative LE Strength Trunk Strength: 5/5 R LE Strength: Grossly 5/5 L LE Strength: Grossly 5/5 Special Tests - Hip and Spine SLR Test: Left Negative, Right Negative Prone Instability Test: Negative IVAN Test: Right Negative, Left Negative Gait Gait Observation: Normal TREATMENT: Therapeutic Exercise: 1: Re-assessment results were reviewed with patient and used as rationale for plan of care recommendations. 2: Pt. condition and goals assessed. HEP was reviewed and the patient was instructed to continue with HEP to tolerance. 3: Hoist Pallof w/ OH movement: 1x15 each way, 1plate/1round 4: Hoist Low-to-high chops: 1x10 each., 1plate. 5: Hoist Pallof Walkouts: 1x10 each., 1plate. 6: Hoist Pallof Press: 2x10 each., 1plate/2rounds 7: S/L Hip Diagonal ABD: 2x10 each. 9: Time spent on education in how to progress HEP/gym exercises appropriately and to tolerance. Patient was emailed advance core strength and low back stability exercises and we discussed these as well. 10: Education in soft tissue massage against wall vs irritated soft tissue. Discussed to hold against tender spots for 5-10 seconds. Skilled Intervention: Patient was educated in proper exercise technique and purpose for exercises. Reviewed and educated patient on additions/changes for home exercise program as above (*). Skilled judgment was used in selection of appropriate interventions. Provided written instructio (more content not included)... [facility] 08-05-2024 Note HNO ID: [id number] Author: DARIUSZ DUNCAN PT Service: ? Author Type: Physical Therapist Type: Progress Notes Filed: 08/05/2024 16:30 Note Text: Episode Visit Count: 5 Therapist That Will Accept/Oversee The Plan Of Care: Dariusz Duncan PT. Start of Care Date: 07/06/24 Onset Date: 06/06/24 Plan of Care Certification Date: 07/06/24 Next Certification Due Date: 08/13/24 Patient Identified by Name and Date of : Yes REHABILITATION AND SPORTS THERAPY PHYSICAL THERAPY TREATMENT NOTE ASSESSMENT: Johanna Carver tolerated the session with no issues. She demonstrated difficulty with OH pallof and core control. The patient will continue to benefit from ongoing skilled physical therapy to progress toward set goals. PLAN FOR NEXT VISIT: [place] SUBJECTIVE: Patient reports the L Hip has some discomfort, does not really hurt to much like usual. States a couple days of relief. Pain: Pain Pain Level: 2 Pain Location: Hip - Left Description: Dull, Aching Post Treatment Pain Post Treatment Pain Level: No Change OBJECTIVE MEASURES WITH LEVEL OF FUNCTION: Trouble dissociating hip and back movement with pallof rotations. TREATMENT: Therapeutic Exercise: 1: Hoist Lateral Walkouts: 1x8 each way, 1 plate/1 round. 2: Hoist Pallof w/ OH movement: 2x12 each way, 1plate/1round 3: Hoist Low-to-high chops: 2x10, 1plate. 4: Hoist Pallof press w/ rotation: 1x10 each way, 1 plate. 5: *Education on band use, patient brought in several personal bands. 6: *BTB cut for home good morning. Skilled Intervention: Patient was educated in proper exercise technique and purpose for exercises. Skilled judgment was used in selection of appropriate interventions. Correct performance of therapeutic exercises was facilitated with verbal and tactile cuing. Billing Therapeutic Exercise Treatment Minutes: 42 Skilled Treatment Time Minutes (timed and untimed codes): 42 Total Session Time (minutes): 42 Session Start Time : 1545 Session Stop Time : 1627 Dariusz Duncan PT [facility] 08-05-2024 History of Present illness Narrative Episode Visit Count: 5 Therapist That Will Accept/Oversee The Plan Of Care: Dariusz Duncan PT. Start of Care Date: 07/06/24 Onset Date: 06/06/24 Plan of Care Certification Date: 07/06/24 Next Certification Due Date: 08/13/24 Patient Identified by Name and Date of : Yes REHABILITATION AND SPORTS THERAPY PHYSICAL THERAPY TREATMENT NOTE ASSESSMENT: Johanna Carver tolerated the session with no issues. She demonstrated difficulty with OH pallof and core control. The patient will continue to benefit from ongoing skilled physical therapy to progress toward set goals. PLAN FOR NEXT VISIT: [place] SUBJECTIVE: Patient reports the L Hip has some discomfort, does not really hurt to much like usual. States a couple days of relief. Pain: Pain Pain Level: 2 Pain Location: Hip - Left Description: Dull, Aching Post Treatment Pain Post Treatment Pain Level: No Change OBJECTIVE MEASURES WITH LEVEL OF FUNCTION: Trouble dissociating hip and back movement with pallof rotations. TREATMENT: Therapeutic Exercise: 1: Hoist Lateral Walkouts: 1x8 each way, 1 plate/1 round. 2: Hoist Pallof w/ OH movement: 2x12 each way, 1plate/1round 3: Hoist Low-to-high chops: 2x10, 1plate. 4: Hoist Pallof press w/ rotation: 1x10 each way, 1 plate. 5: *Education on band use, patient brought in several personal bands. 6: *BTB cut for home good morning. Skilled Intervention: Patient was educated in proper exercise technique and purpose for exercises. Skilled judgment was used in selection of appropriate interventions. Correct performance of therapeutic exercises was facilitated with verbal and tactile cuing. Billing Therapeutic Exercise Treatment Minutes: 42 Skilled Treatment Time Minutes (timed and untimed codes): 42 Total Session Time (minutes): 42 Session Start Time : 154 Session Stop Time : 162 Dariusz Duncan PT documented in this encounter [facility] 07-29-2024 Note HNO ID: [id number] Author: DARIUSZ DUNCAN PT Service: ? Author Type: Physical Therapist Type: Progress Notes Filed: 07/29/2024 14:59 Note Text: Episode Visit Count: 4 Therapist That Will Accept/Oversee The Plan Of Care: Dariusz Duncan PT. Start of Care Date: 07/06/24 Onset Date: 06/06/24 Plan of Care Certification Date: 07/06/24 Next Certification Due Date: 08/13/24 Patient Identified by Name and Date of : Yes REHABILITATION AND SPORTS THERAPY PHYSICAL THERAPY TREATMENT NOTE ASSESSMENT: Johanna Carver tolerated the session with expected muscle soreness. She demonstrated improvements in pain/symptoms/restriction following MT. The patient will continue to benefit from ongoing skilled physical therapy to progress toward set goals. PLAN FOR NEXT VISIT: MT PRN; Progress Erector Strength. Walkouts, pallof, chops, suitcase walks AND squats. SUBJECTIVE: States traction from last time was very helpful, states she noticed with leg press and gym not having radicular sxs or irritation as much. Some left hip irritation today. Pain: Pain Pain Level: 2 Pain Location: Hip - Left Description: Aching Frequency: (States sudden with pushing into left hip.) Post Treatment Pain Post Treatment Pain Level: Better Post Treatment Pain Location: Hip - Left, Low Back/Lumbar Spine - Left OBJECTIVE MEASURES WITH LEVEL OF FUNCTION: Localized Twitch Response appreciated AND observed with DN to L Glute Min. Hypertonic L Erectors. TREATMENT: Therapeutic Exercise: 1: L Rev Clamshell in S/L: 2x15. 2: L Hip ABD in s/l: 3x10, 4#. 3: L Hip ABD iso hold in s/l following 10 concentric reps: [id number], 4#. 4: Standing Good Mornings: 2x15, workout [place] band. Skilled Intervention: Patient was educated in proper exercise technique and purpose for exercises. Reviewed and educated patient on additions/changes for home exercise program as above (*). Skilled judgment was used in selection of appropriate interventions. Provided written instruction for home exercise program to facilitate proper performance and compliance. Correct performance of therapeutic exercises was facilitated with verbal and tactile cuing. Manual Therapy: 1: *Prior to DN; patient provided consent to continue with gluteal DN placement with sheet draping to provide appropriate modesty. Patient denies needing female therapist present during DN intervention. Soft Tissue Mobilization: STM to L Glute and L LB + palpation examination for trigger points throughout those areas,: Push to tolerance. Manual Traction: Manual Lumbar Traction w/ Legs propped on stool 90/90 and caudal pull: Pull to tolerance. 7 Min. Dry Needling: Dry needling to following Trigger points: L Glute Min AND Med as well as Left L3-L5 Multifidi. Needle length: .[id number]. [place] used 6 (3 L Back, 3 L Glute), needles removed 6. Dry needling technique used: Pistoning, Fanning, and Deep needling. Patient education on purpose, precautions, safety, risks, and other treatment options regarding dry needling. Verbal consent received. Skilled Intervention: Manual skills to improve joint mobility, ROM, and decrease pain. Utilized anatomy knowledge of the clinician, and assessment of patient's response to intervention. Billing Therapeutic Exercise Treatment Minutes: 19 Manual TherapyTreatment Minutes: 24 Skilled Treatment Time Minutes (timed and untimed codes): 43 Total Session Time (minutes): 43 Session Start Time : 1415 Session Stop Time : 1458 Dariusz Duncan PT [facility] 07-29-2024 History of Present illness Narrative Episode Visit Count: 4 Therapist That Will Accept/Oversee The Plan Of Care: Dariusz Duncan PT. Start of Care Date: 07/06/24 Onset Date: 06/06/24 Plan of Care Certification Date: 07/06/24 Next Certification Due Date: 08/13/24 Patient Identified by Name and Date of : Yes REHABILITATION AND SPORTS THERAPY PHYSICAL THERAPY TREATMENT NOTE ASSESSMENT: Johanna Carver tolerated the session with expected muscle soreness. She demonstrated improvements in pain/symptoms/restriction following MT. The patient will continue to benefit from ongoing skilled physical therapy to progress toward set goals. PLAN FOR NEXT VISIT: MT PRN; Progress Erector Strength. Walkouts, pallof, chops, suitcase walks & squats. SUBJECTIVE: States traction from last time was very helpful, states she noticed with leg press and gym not having radicular sxs or irritation as much. Some left hip irritation today. Pain: Pain Pain Level: 2 Pain Location: Hip - Left Description: Aching Frequency: (States sudden with pushing into left hip.) Post Treatment Pain Post Treatment Pain Level: Better Post Treatment Pain Location: Hip - Left, Low Back/Lumbar Spine - Left OBJECTIVE MEASURES WITH LEVEL OF FUNCTION: Localized Twitch Response appreciated & observed with DN to L Glute Min. Hypertonic L Erectors. TREATMENT: Therapeutic Exercise: 1: L Rev Clamshell in S/L: 2x15. 2: L Hip ABD in s/l: 3x10, 4#. 3: L Hip ABD iso hold in s/l following 10 concentric reps: [id number], 4#. 4: Standing Good Mornings: 2x15, workout [place] band. Skilled Intervention: Patient was educated in proper exercise technique and purpose for exercises. Reviewed and educated patient on additions/changes for home exercise program as above (*). Skilled judgment was used in selection of appropriate interventions. Provided written instruction for home exercise program to facilitate proper performance and compliance. Correct performance of therapeutic exercises was facilitated with verbal and tactile cuing. Manual Therapy: 1: *Prior to DN; patient provided consent to continue with gluteal DN placement with sheet draping to provide appropriate modesty. Patient denies needing female therapist present during DN intervention. Soft Tissue Mobilization: STM to L Glute and L LB + palpation examination for trigger points throughout those areas,: Push to tolerance. Manual Traction: Manual Lumbar Traction w/ Legs propped on stool 90/90 and caudal pull: Pull to tolerance. 7 Min. Dry Needling: Dry needling to following Trigger points: L Glute Min & Med as well as Left L3-L5 Multifidi. Needle length: .[id number]. [place] used 6 (3 L Back, 3 L Glute), needles removed 6. Dry needling technique used: Pistoning, Fanning, and Deep needling. Patient education on purpose, precautions, safety, risks, and other treatment options regarding dry needling. Verbal consent received. Skilled Intervention: Manual skills to improve joint mobility, ROM, and decrease pain. Utilized anatomy knowledge of the clinician, and assessment of patient's response to intervention. Billing Therapeutic Exercise Treatment Minutes: 19 Manual TherapyTreatment Minutes: 24 Skilled Treatment Time Minutes (timed and untimed codes): 43 Total Session Time (minutes): 43 Session Start Time : 1415 Session Stop Time : 1458 Dariusz Duncan PT documented in this encounter [facility] 07-29-2024 Note HNO ID: [id number] Author: LENA OLGUIN APRN.ENGINE TEST CELL TECHNICIAN Service: ? Author Type: Nurse Practitioner Type: Progress Notes Filed: 07/29/2024 14:11 Note Text: Patient declined paperhanger. Johanna Carver is a 39 year old female who presents for problem visit vaginal discharge for 2 week(s). HPI: Patient states that she has noticed some increase in vaginal discharge and some irritation. She has not been recently sexually active, but states symptoms feel like the same as when she had positive mycoplasma. Patient is also still dealing with oral/tongue issues. The tongue is still white in color and she complains of a burning sensation when she eats. She does have an appointment with ENT coming up for this issue. Patient also states that she has a rash on her left upper shoulder. She did see a local psychometrist that performed a biopsy and they gave her a steroid cream to use. Patient states that the rash is spreading and did not resolve in any way. She would like a consult to dermatology for second opinion. OB History Gravida2 Para0 Term0 Preterm0 AB0 Living2 SAB0 IAB0 Ectopic0 Multiple0 Live Births0 Bed Manager History LMP: 07/25/2024 (Within Weeks), Having periods Age at Menarche: Age at First : Age at Menopause: Bed Manager History Comments: Sexual Activity: Not Currently; Male Contraception: Condom PAST MEDICAL HISTORY Diagnosis Date ADHD (attention deficit hyperactivity disorder) Adjustment disorder with depressed mood was previously on Paxil/effexor, self ky'ed for weight gain. Anemia Concussion 2016 Depressive disorder, not elsewhere classified Environmental and seasonal allergies Eosinophilic esophagitis 2016 Esophageal dysmotility 02/27/2018 Foot fracture, left 2016 TBI (traumatic brain injury) (HCC) Unspecified symptom associated with female genital organs Pain in the vulvar area PAST SURGICAL HISTORY Procedure Laterality Date CORRECT BUNION,SIMPLE 2005 right EGD 1 or 2 times yearly REDUCTION OF LARGE BREAST 10/05/2008 Bilateral, uncomplciated RPR 1ST INGUN HRNA FULL TERM INFT <6 MO RDC FAMILY HISTORY Problem Relation Age of Onset Psychiatry Mother post depression No Known Problems Father No Known Problems Sister No Known Problems Sister Ischemic Heart Disease Maternal Grandfather Heart Paternal Grandmother Pacemaker Cancer Paternal Grandmother Ischemic Heart Disease Paternal Grandfather Social History Tobacco Use Smoking status: Former Current packs/day: 0.00 Types: Cigarettes Quit date: 12/25/2016 Years since quittin.5 Smokeless tobacco: Never Tobacco comments: A few cigarettes per week. Vaping Use Vaping status: Never Used Substance Use Topics Alcohol use: Not Currently Comment: seldom Drug use: Never Current Outpatient Medications Medication Sig amphetamine-dextroamphetamine XR (ADDERALL XR) 15 mg capsule Take 1 capsule by mouth once daily for 30 days. tiZANidine (ZANAFLEX) 4 mg tablet 1 tab qhs prn fluticasone (FLONASE) 50 mcg/actuation nasal spray Use 2 sprays in each nostril once daily. Rinse mouth after use. Clindamycin Phosphate (CLEOCIN T) 1 % lotion Apply once a day as a spot treatment to the face ibuprofen (MOTRIN ORAL) Take 400 mg by mouth as needed. nystatin (MYCOSTATIN) 100,000 unit/mL suspension Take 5 mL by mouth four times daily. 1tsp swish in mouth for several minutes, then swallow (or expectorate) 4 times daily until gone. adapalene-benzoyl peroxide 0.3-2.5 % Apply to affected area three times a week. No current facility-administered medications for this visit. Allergies As of Date: 07/29/2024 Allergen Noted Reaction PENICILLINS 10/03/2005 Hives SULFA (SULFONAMIDE ANTIBIOTICS) 05/31/2019 Swelling Fully Assessed 07/29/2024 REVIEW OF SYSTEMS Bladder: No dysuria, gross hematuria, urinary frequency, urinary urgency, or incontinence. Expanded ROS: N/A Allergies and current medication updated:Yes SENSITIVE EXAM: The sensitive examination was discussed with the Patient or Patient's Authorized Claims Agent Right Of Way. As applicable, any other physician, advance practice provider, medical student, or other health professional student that will be observing or involved in the sensitive examination for educational or training purposes was discussed with the Patient or Authorized Claims Agent Right Of Way. The Patient or Authorized Claims Agent Right Of Way has agreed to proceed with the sensitive examination. (Sensitive examination includes inspection and/or palpation of the breasts, pelvis, prostate and anorectal regions). EXAM: BP 116/64 Wt 0 lb (0.0kg) LMP 07/25/2024 GENERAL: pleasant, female in no apparent distress HEENT: Normocephalic, atraumatic, mucus membranes moist, and no lesions CHEST: Normal inspiratory effort PELVIC: external genitalia normal, normal [place]'s glands, urethra, [place]'s glands, no vulvar lesions, no cervical lesions, good vaginal support, p (more content not included)... [facility] 07-29-2024 History of Present illness Narrative Patient declined paperhanger. Johanna Carver is a 39 year old female who presents for problem visit vaginal discharge for 2 week(s). HPI: Patient states that she has noticed some increase in vaginal discharge and some irritation. She has not been recently sexually active, but states symptoms feel like the same as when she had positive mycoplasma. Patient is also still dealing with oral/tongue issues. The tongue is still white in color and she complains of a burning sensation when she eats. She does have an appointment with ENT coming up for this issue. Patient also states that she has a rash on her left upper shoulder. She did see a local psychometrist that performed a biopsy and they gave her a steroid cream to use. Patient states that the rash is spreading and did not resolve in any way. She would like a consult to dermatology for second opinion. OB History Gravida2 Para0 Term0 Preterm0 AB0 Living2 SAB0 IAB0 Ectopic0 Multiple0 Live Births0 Bed Manager History LMP: 07/25/2024 (Within Weeks), Having periods Age at Menarche: Age at First : Age at Menopause: Bed Manager History Comments: Sexual Activity: Not Currently; Male Contraception: Condom PAST MEDICAL HISTORY Diagnosis Date ADHD (attention deficit hyperactivity disorder) Adjustment disorder with depressed mood was previously on Paxil/effexor, self ky'ed for weight gain. Anemia Concussion 2015 Depressive disorder, not elsewhere classified Environmental and seasonal allergies Eosinophilic esophagitis 2016 Esophageal dysmotility 02/27/2018 Foot fracture, left 2016 TBI (traumatic brain injury) (HCC) Unspecified symptom associated with female genital organs Pain in the vulvar area PAST SURGICAL HISTORY Procedure Laterality Date CORRECT BUNION,SIMPLE 2006 right EGD 1 or 2 times yearly REDUCTION OF LARGE BREAST 10/05/2008 Bilateral, uncomplciated RPR 1ST INGUN HRNA FULL TERM INFT <6 MO RDC FAMILY HISTORY Problem Relation Age of Onset Psychiatry Mother post depression No Known Problems Father No Known Problems Sister No Known Problems Sister Ischemic Heart Disease Maternal Grandfather Heart Paternal Grandmother Pacemaker Cancer Paternal Grandmother Ischemic Heart Disease Paternal Grandfather Social History Tobacco Use Smoking status: Former Current packs/day: 0.00 Types: Cigarettes Quit date: 12/25/2016 Years since quittin.5 Smokeless tobacco: Never Tobacco comments: A few cigarettes per week. Vaping Use Vaping status: Never Used Substance Use Topics Alcohol use: Not Currently Comment: seldom Drug use: Never Current Outpatient Medications Medication Sig amphetamine-dextroamphetamine XR (ADDERALL XR) 15 mg capsule Take 1 capsule by mouth once daily for 30 days. tiZANidine (ZANAFLEX) 4 mg tablet 1 tab qhs prn fluticasone (FLONASE) 50 mcg/actuation nasal spray Use 2 sprays in each nostril once daily. Rinse mouth after use. Clindamycin Phosphate (CLEOCIN T) 1 % lotion Apply once a day as a spot treatment to the face ibuprofen (MOTRIN ORAL) Take 400 mg by mouth as needed. nystatin (MYCOSTATIN) 100,000 unit/mL suspension Take 5 mL by mouth four times daily. 1tsp swish in mouth for several minutes, then swallow (or expectorate) 4 times daily until gone. adapalene-benzoyl peroxide 0.3-2.5 % Apply to affected area three times a week. No current facility-administered medications for this visit. Allergies As of Date: 07/29/2024 Allergen Noted Reaction PENICILLINS 10/03/2005 Hives SULFA (SULFONAMIDE ANTIBIOTICS) 05/31/2019 Swelling Fully Assessed 07/29/2024 REVIEW OF SYSTEMS Bladder: No dysuria, gross hematuria, urinary frequency, urinary urgency, or incontinence. Expanded ROS: N/A Allergies and current medication updated:Yes SENSITIVE EXAM: The sensitive examination was discussed with the Patient or Patient's Authorized Claims Agent Right Of Way. As applicable, any other physician, advance practice provider, medical student, or other health professional student that will be observing or involved in the sensitive examination for educational or training purposes was discussed with the Patient or Authorized Claims Agent Right Of Way. The Patient or Authorized Claims Agent Right Of Way has agreed to proceed with the sensitive examination. (Sensitive examination includes inspection and/or palpation of the breasts, pelvis, prostate and anorectal regions). EXAM: BP 116/64 Wt 0 lb (0.0kg) LMP 07/25/2024 GENERAL: pleasant, female in no apparent distress HEENT: Normocephalic, atraumatic, mucus membranes moist, and no lesions CHEST: Normal inspiratory effort PELVIC: external genitalia normal, normal [place]'s glands, urethra, [place]'s glands, no vulvar lesions, no cervical lesions, good vaginal support, physiologic discharge present, normal appearing perineal body and perianal region BIMANUAL: deferred NEURO: alert and oriented x3,exam grossly non-focal EXTREMITIES: normal ASSESSMENT AND PLAN: Assessment & Plan Vaginal discharge Orders: TEZ/TRICHOMONAS NAAT BACTERIAL VAGINOSIS NAAT UROGENITAL UREAPLASMA AND MYCOPLASMA SPECIES BY PCR, FOR GENITAL, RECTAL, URINE SAMPLES Oral thrush Orders: nystatin (MYCOSTATIN) 100,000 unit/mL suspension; Take 5 mL by mouth four times daily. 1tsp swish in mouth for several minutes, then swallow (or expectorate) 4 times daily until gone. Rash Orders: CONSULT TO DERMATOLOGY; Future Will notify patient of test results. Lena Olguin APRN.CNP Medical Decision Making: Problems: Low: Acute, uncomplicated illness or injury Data: Unique test(s) ordered: 3+ Risk: Moderate: Drug management Medical Decision Making Level: 4 - Moderate documented in this encounter [facility] 07-29-2024 [facility]phone encounter [facility] All prescriptions have been APPROPRIATELY filled. No suspicious activity was identified. 07/29/2024 by Antoinette Anthony APRN.CNP [facility] 07-29-2024 Miscellaneous Notes PDMP website checked and validated. All prescriptions have been APPROPRIATELY filled. No suspicious activity was identified. 07/29/2024 by Antoinette Anthony APRN.ENGINE TEST CELL TECHNICIAN [facility] pharmacy calling requesting new 30 day rx for generic Adderall 15 mg please. Last rx was filled on 06/25/2024 for 30 since that was all the pharmacy had at the time. Pharmacy has told the patient that cancelled the remaining 60 on the rx, and a new rx will be needed. Patient told her that the office would not send a new rx, told pharmacist that no note was in the computer for this request. Pharmacy has the 30 in stock to fill the rx today. Pending rx to file. Please advise The patient has been identified by name and date of : Yes, pharmacy Caregiver verified no other encounters exist for this prescription request: Yes Caregiver confirmed with patient/requestor that no other refills are due, in the near future, with this provider at this time: Yes The last office visit in the department: 06/21/2024 Does the patient have a future office visit with this provider/department: Yes 09/22/2024 Requested Prescriptions Pending Prescriptions Disp Refills amphetamine-dextroamphetamine XR (ADDERALL XR) 15 mg capsule 30 capsule 0 Sig: Take 1 capsule by mouth once daily for 30 days. Magdalena Miller LPN July 28, 2024 4:19 PM documented in this encounter [facility] 07-28-2024 Telephone encounter Note [facility] pharmacy calling requesting new 30 day rx for generic Adderall 15 mg please. Last rx was filled on 06/25/2024 for 30 since that was all the pharmacy had at the time. Pharmacy has told the patient that cancelled the remaining 60 on the rx, and a new rx will be needed. Patient told her that the office would not send a new rx, told pharmacist that no note was in the computer for this request. Pharmacy has the 30 in stock to fill the rx today. Pending rx to file. Please advise The patient has been identified by name and date of : Yes, pharmacy Caregiver verified no other encounters exist for this prescription request: Yes Caregiver confirmed with patient/requestor that no other refills are due, in the near future, with this provider at this time: Yes The last office visit in the department: 06/21/2024 Does the patient have a future office visit with this provider/department: Yes 09/22/2024 Requested Prescriptions Pending Prescriptions Disp Refills amphetamine-dextroamphetamine XR (ADDERALL XR) 15 mg capsule 30 capsule 0 Sig: Take 1 capsule by mouth once daily for 30 days. Magdalena Miller LPN July 28, 2024 4:19 PM [facility] 07-22-2024 History of Present illness Narrative Program_ID:[id number] Access Code: [email or web address] URL: [email or web address] Date: 07-22-2024 Prepared By: Dariusz Duncan Program Notes Exercises - Sidelying Hip Abduction - 2 x daily - 7 x weekly - 2-3 sets - 10 reps - Seated Hip External Rotation with Resistance - 2 x daily - 7 x weekly - 2-3 sets - 10 reps - Self Release - 1 x daily - 7 x weekly - sets - reps - Isometric Glute Med at Wall - 2 x daily - 7 x weekly - 2 sets - 10 reps - Sidelying Reverse Clamshell with Resistance - 2 x daily - 7 x weekly - 2 sets - 10 reps - Side Stepping with Resistance at Ankles - 2 x daily - 7 x weekly - sets - 3-5 reps Episode Visit Count: 3 Therapist That Will Accept/Oversee The Plan Of Care: Dariusz Duncan PT. Start of Care Date: 07/06/24 Onset Date: 06/06/24 Plan of Care Certification Date: 07/06/24 Next Certification Due Date: 08/13/24 Patient Identified by Name and Date of : Yes REHABILITATION AND SPORTS THERAPY PHYSICAL THERAPY TREATMENT NOTE ASSESSMENT: Johannamumtaz Carver tolerated the session with no issues. She demonstrated TTP L Glute Max. The patient will continue to benefit from ongoing skilled physical therapy to progress toward set goals. PLAN FOR NEXT VISIT: MT PRN; Add to HEP, progress bands. SUBJECTIVE: States self-massage with a ball seems to help relieve pain. States tenderness in the posterior glute this date. States improvement overall since beginning PT. States have not been going to the gym as much lately. Pain: Pain Pain Level: 3 Pain Location: Hip - Left Description: Tenderness Post Treatment Pain Post Treatment Pain Level: Better Post Treatment Pain Location: Hip - Left OBJECTIVE MEASURES WITH LEVEL OF FUNCTION: Good form demonstrated throughout session and completion of ther-ex. TREATMENT: Therapeutic Exercise: 1: *Reviewed differences in this PT/POC vs. a private clinic. Discussed private clinics have more time to do a variety of treatments/modalities with REGISTERED NURSE SUPERVISOR/Aides, vs strictly 1-on-1 time here. Discussed importance of being on time for appointments to get the most out of sessions. 2: *Answered patients questions as asked on completion of different recreational activities. Discussed inversion table based on patients questions. 3: L Rev Clamshell in S/L: 2x10.. Added GTB for home. 4: Lateral Walks, GTB at ankles: [id number], each way. Skilled Intervention: Patient was educated in proper exercise technique and purpose for exercises. Reviewed and educated patient on additions/changes for home exercise program as above (*). Skilled judgment was used in selection of appropriate interventions. Provided written instruction for home exercise program to facilitate proper performance and compliance. Correct performance of therapeutic exercises was facilitated with verbal and tactile cuing. Manual Therapy: Soft Tissue Mobilization: STM w/ lacrosse ball to L Glutes (in R S/L) as well as R Proximal IT BAND. Manual Traction: Manual Lumbar Traction w/ Legs propped on stool 90/90 and caudal pull: Pull to tolerance. 7 Min. Skilled Intervention: Manual skills to improve joint mobility, ROM, and decrease pain. Utilized anatomy knowledge of the clinician, and assessment of patient's response to intervention. Billing Therapeutic Exercise Treatment Minutes: 23 Manual TherapyTreatment Minutes: 15 Skilled Treatment Time Minutes (timed and untimed codes): 38 Total Session Time (minutes): 38 Session Start Time : 1137 Session Stop Time : 1215 Decreased visit time due to patient arriving late to appointment. Dariusz Duncan PT documented in this encounter [facility] 07-22-2024 Note HNO ID: [id number] Author: DARIUSZ DUNCAN PT Service: ? Author Type: Physical Therapist Type: Progress Notes Filed: 07/22/2024 12:17 Note Text: Episode Visit Count: 3 Therapist That Will Accept/Oversee The Plan Of Care: Dariusz Duncan PT. Start of Care Date: 07/06/24 Onset Date: 06/06/24 Plan of Care Certification Date: 07/06/24 Next Certification Due Date: 08/13/24 Patient Identified by Name and Date of : Yes REHABILITATION AND SPORTS THERAPY PHYSICAL THERAPY TREATMENT NOTE ASSESSMENT: Johanna Carver tolerated the session with no issues. She demonstrated TTP L Glute Max. The patient will continue to benefit from ongoing skilled physical therapy to progress toward set goals. PLAN FOR NEXT VISIT: MT PRN; Add to HEP, progress bands. SUBJECTIVE: States self-massage with a ball seems to help relieve pain. States tenderness in the posterior glute this date. States improvement overall since beginning PT. States have not been going to the gym as much lately. Pain: Pain Pain Level: 3 Pain Location: Hip - Left Description: Tenderness Post Treatment Pain Post Treatment Pain Level: Better Post Treatment Pain Location: Hip - Left OBJECTIVE MEASURES WITH LEVEL OF FUNCTION: Good form demonstrated throughout session and completion of ther-ex. TREATMENT: Therapeutic Exercise: 1: *Reviewed differences in this PT/POC vs. a private clinic. Discussed private clinics have more time to do a variety of treatments/modalities with REGISTERED NURSE SUPERVISOR/Aides, vs strictly 1-on-1 time here. Discussed importance of being on time for appointments to get the most out of sessions. 2: *Answered patients questions as asked on completion of different recreational activities. Discussed inversion table based on patients questions. 3: L Rev Clamshell in S/L: 2x10.. Added GTB for home. 4: Lateral Walks, GTB at ankles: [id number], each way. Skilled Intervention: Patient was educated in proper exercise technique and purpose for exercises. Reviewed and educated patient on additions/changes for home exercise program as above (*). Skilled judgment was used in selection of appropriate interventions. Provided written instruction for home exercise program to facilitate proper performance and compliance. Correct performance of therapeutic exercises was facilitated with verbal and tactile cuing. Manual Therapy: Soft Tissue Mobilization: STM w/ lacrosse ball to L Glutes (in R S/L) as well as R Proximal IT BAND. Manual Traction: Manual Lumbar Traction w/ Legs propped on stool 90/90 and caudal pull: Pull to tolerance. 7 Min. Skilled Intervention: Manual skills to improve joint mobility, ROM, and decrease pain. Utilized anatomy knowledge of the clinician, and assessment of patient's response to intervention. Billing Therapeutic Exercise Treatment Minutes: 23 Manual TherapyTreatment Minutes: 15 Skilled Treatment Time Minutes (timed and untimed codes): 38 Total Session Time (minutes): 38 Session Start Time : 1137 Session Stop Time : 1215 Decreased visit time due to patient arriving late to appointment. Dariusz Dnucan, PT [facility] 07-13-2024 History of Present illness Narrative Program_ID:[id number] Access Code: [email or web address] URL: [email or web address] Date: 07-13-2024 Prepared By: Dariusz Duncan Program Notes Exercises - Sidelying Hip Abduction - 2 x daily - 7 x weekly - 2-3 sets - 10 reps - Seated Hip External Rotation with Resistance - 2 x daily - 7 x weekly - 2-3 sets - 10 reps - Sidelying Reverse Clamshell - 2 x daily - 7 x weekly - 2 sets - 10 reps - Self Release - 1 x daily - 7 x weekly - sets - reps - Isometric Glute Med at Wall - 2 x daily - 7 x weekly - 2 sets - 10 reps Episode Visit Count: 2 Therapist That Will Accept/Oversee The Plan Of Care: Dariusz Duncan PT. Start of Care Date: 07/06/24 Onset Date: 06/06/24 Plan of Care Certification Date: 07/06/24 Next Certification Due Date: 08/13/24 Patient Identified by Name and Date of : Yes REHABILITATION AND SPORTS THERAPY PHYSICAL THERAPY TREATMENT NOTE ASSESSMENT: Johanna Carver tolerated the session with expected muscle soreness. She demonstrated . The patient will continue to benefit from ongoing skilled physical therapy to progress toward set goals. PLAN FOR NEXT VISIT: Progress ther-ex as tolerated. SUBJECTIVE: States doing the exercises for a couple days prior to working long hours/full days the last couple of days/weekend. States did not do exercises on those long days. Exercises went fine, did not increase pain. Pain: Pain Pain Level: 0 (Denies Pain sitting, was slightly sharp with standing/walking.) Pain Location: Hip - Left OBJECTIVE MEASURES WITH LEVEL OF FUNCTION: TTP L Gluteals. TREATMENT: Therapeutic Exercise: 1: L Rev Clamshell in S/L: 3x10. 2: Sidelying L Hip ABD: 3x10; cues for slightly higher range and setup. 3: Seated L Hip External Rotation with GTB Resistance: 3x10. 4: Isometric L Glute Med at Wall: 2x10, 5-sec. (Pushing into R.) Skilled Intervention: Patient was educated in proper exercise technique and purpose for exercises. Skilled judgment was used in selection of appropriate interventions. Correct performance of therapeutic exercises was facilitated with verbal, visual, and tactile cuing. Manual Therapy: Soft Tissue Mobilization: STM w/ lacrosse ball to L Glutes (in R S/L) as well as R Proximal IT BAND. Manual Traction: Manual Lumbar Traction w/ Legs propped on stool 90/90 and caudal pull: Pull to tolerance. Skilled Intervention: Manual skills to improve joint mobility, ROM, and decrease pain. Utilized anatomy knowledge of the clinician, and assessment of patient's response to intervention. Billing Therapeutic Exercise Treatment Minutes: 25 Manual TherapyTreatment Minutes: 15 Skilled Treatment Time Minutes (timed and untimed codes): 40 Total Session Time (minutes): 40 Session Start Time : 747 Session Stop Time : 827 Dariusz Duncan PT documented in this encounter [facility] 07-13-2024 Note HNO ID: [id number] Author: DARIUSZ DUNCAN PT Service: ? Author Type: Physical Therapist Type: Progress Notes Filed: 07/13/2024 08:42 Note Text: Episode Visit Count: 2 Therapist That Will Accept/Oversee The Plan Of Care: Dariusz Duncan PT. Start of Care Date: 07/06/24 Onset Date: 06/06/24 Plan of Care Certification Date: 07/06/24 Next Certification Due Date: 08/13/24 Patient Identified by Name and Date of : Yes REHABILITATION AND SPORTS THERAPY PHYSICAL THERAPY TREATMENT NOTE ASSESSMENT: Johanna Carver tolerated the session with expected muscle soreness. She demonstrated . The patient will continue to benefit from ongoing skilled physical therapy to progress toward set goals. PLAN FOR NEXT VISIT: Progress ther-ex as tolerated. SUBJECTIVE: States doing the exercises for a couple days prior to working long hours/full days the last couple of days/weekend. States did not do exercises on those long days. Exercises went fine, did not increase pain. Pain: Pain Pain Level: 0 (Denies Pain sitting, was slightly sharp with standing/walking.) Pain Location: Hip - Left OBJECTIVE MEASURES WITH LEVEL OF FUNCTION: TTP L Gluteals. TREATMENT: Therapeutic Exercise: 1: L Rev Clamshell in S/L: 3x10. 2: Sidelying L Hip ABD: 3x10; cues for slightly higher range and setup. 3: Seated L Hip External Rotation with GTB Resistance: 3x10. 4: Isometric L Glute Med at Wall: 2x10, 5-sec. (Pushing into R.) Skilled Intervention: Patient was educated in proper exercise technique and purpose for exercises. Skilled judgment was used in selection of appropriate interventions. Correct performance of therapeutic exercises was facilitated with verbal, visual, and tactile cuing. Manual Therapy: Soft Tissue Mobilization: STM w/ lacrosse ball to L Glutes (in R S/L) as well as R Proximal IT BAND. Manual Traction: Manual Lumbar Traction w/ Legs propped on stool 90/90 and caudal pull: Pull to tolerance. Skilled Intervention: Manual skills to improve joint mobility, ROM, and decrease pain. Utilized anatomy knowledge of the clinician, and assessment of patient's response to intervention. Billing Therapeutic Exercise Treatment Minutes: 25 Manual TherapyTreatment Minutes: 15 Skilled Treatment Time Minutes (timed and untimed codes): 40 Total Session Time (minutes): 40 Session Start Time : 747 Session Stop Time : 827 Dariusz Duncan PT [facility] 07-06-2024 History of Present illness Narrative Program_ID:[id number] Access Code: [email or web address] URL: [email or web address] Date: 07-06-2024 Prepared By: Dariusz Duncan Program Notes Exercises - Sidelying Hip Abduction - 2 x daily - 7 x weekly - 2-3 sets - 10 reps - Seated Hip External Rotation with Resistance - 2 x daily - 7 x weekly - 2-3 sets - 10 reps - Isometric Glute Med at Wall - 2 x daily - 7 x weekly - 2 sets - 10 reps - Sidelying Reverse Clamshell - 2 x daily - 7 x weekly - 2 sets - 10 reps - Self Release - 1 x daily - 7 x weekly - sets - reps Images from the original note were not included. Episode Visit Count: 1 Therapist That Will Accept/Oversee The Plan Of Care: Dariusz Duncan PT. Start of Care Date: 07/06/24 Onset Date: 06/06/24 Plan of Care Certification Date: 07/06/24 Next Certification Due Date: 08/13/24 Patient Identified by Name and Date of : Yes REHABILITATION AND SPORTS THERAPY PHYSICAL THERAPY EVALUATION PLAN OF CARE: Assessment: Johanna Carver presents with chief complaint of L Hip Pain that interferes with recreational activities, heavy exertion, working, bed mobility, twisting . The patient presents with impairments in ADL's, flexibility, independence in exercise, overall function, patient reported outcome measures, range of motion, strength, symptom management, and tissue tenderness. PROMIS (Patient-Reported Outcomes Measurement Information System) scores were reviewed and identified as a rehabilitation concern. Prognosis for therapy is Good due to: current objective clinical presentation, good overall health status, positive past response to therapy . The patient will benefit from skilled therapy services to meet the goals established for this plan of care as noted below. Classification Pain Mechanism Classification: Nociceptive Low Back Pain Classification: Movement Control Goals for Episode of Care: established 07/06/24 Patient reported outcome of pain Interference will decrease T -score by a minimum of 5 points. [place] in home exercise program. Patient will increase flexibility of L Hip Internal Rotators. Increased strength of Hip ABD (bilat) and L ER to 5/5 mmt for improved performance of functional activities. Restore pain-free lumbar ROM to WNL to allow for improved functional mobility. Restore pain-free L Hip ER A/PROM. Decrease soft tissue tenderness grossly for improvements in pain and improved QOL. Patient Goals: Alleviate Pain. Time Frame for Goals and Treatment : 08/17/24 Planned Interventions, Frequency, and Duration: Current Frequency: 1x/week Duration: 5 weeks Total Number of Visits Planned: 5 Planned Treatment Interventions: Therapeutic exercise (33059), Neuromuscular re-education (57845), Manual therapy (33370), Therapeutic activities (79803), Self-correction management (84117), Patient/Family/Caregiver Education PLAN FOR NEXT VISIT: Review, correct and progress HEP as tolerated. Manual PRN. Patient demonstrates good understanding of plan of care and treatment. The above goals and plan of care were discussed and agreed upon by patient/family. SUBJECTIVE: L Hip pain the last month or so. Describes chronic low back pain with new onset of left-sided pain radiating from the lower back to the buttocks and down the left thigh to the knee. New pain started after a massage and wonders if the massage therapist pushed too hard. Worse with stair master, leg press, twisting, rolling over in bed. Chronic LBP is from fall down the stairs in 2018. PAST TBI as well. Just got orthotics a week ago, wondering if that is changing her hip pain. Also, states since working out more, it does seem like things have improved/settled. Discontinued Baclofen; initiated Zanaflex (has not taken this yet). Patient Goals: Alleviate Pain. 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 Recreation / Current Exercise: Enjoys working out. Intake Information: Prescription present Previous Treatment: Physical Therapy , Muscle relaxer , Chiropractor , Massage [place] Interview: No positive findings with falls interview Pain: Pain Pain Level: 1 Pain Location: Hip - Left Description: Aching PROMIS Scales 06/29/2024 06/14/2024 04/05/2024 Higher is Better Phys Func - T Score 55 (within normal limits) 63 (within normal limits) Phys Func - Percentile 69 90 Self-Eff Symptom - T Score 39 (Low) Self-Eff Symptom - Percentile 14 Cognitve Function - T Score 52 (within normal limits) Cognitive Function - Percentile 58 06/14/2024 04/05/2024 02/24/2023 Lower is Better Pain Interference - T Score 60 (mild) 62 (moderate) 56 (mild) Pain Interference - Percentile 16 12 27 T-scores: mean of general population = 50. 5 points is clinically meaningfully difference Percentiles provide an indication of how the patient's score ranks in relation to the general population. Higher percentile rankings indicate better function/quality of life. 50th percentile is the average of the general population and indicates half of respondents had a worse score. OBJECTIVE MEASURES WITH LEVEL OF FUNCTION: Hip Observations L Hip Palpation Tenderness: Gluteals, Comments L Hip Palpation Tenderness Comments: Most TTP at Glute Med and Min, slight tenderness in glute max Spine Observations L Lumbar Spine Palpation Tenderness: Quadratus Lumborum Lumbar Spine AROM Lumbar Flexion: Normal Lumbar Extension: Minimal limitation, Pain during movement Lumbar R Side-Bend: Minimal limitation, Pain during movement Lumbar L Side-Bend: Minimal limitation Lumbar R Rotation: Normal Lumbar L Rotation: Normal LE AROM L LE AROM: Limited Hip ER due to tightness LE PROM L LE PROM : Light pain at end-range Hip ER. LE Flexibility Flexibility: Hamstring Flexibility, Kael Test R Hamstring Flexibility: Fair L Hamstring Flexibility: Fair R Kael Test: Positive for leg off table and leg straight L Kael Test: Positive for leg off table and leg straight LE Strength Trunk Strength: 4/5 R Hip ABduction: 4+/5 L Hip ABduction: 4-/5 L Hip External Rotation: 4/5 Special Tests - Hip and Spine Hip and Spine Special Tests: SLR Test, Prone Instability Test, IVAN Test SLR Test: Left Negative, Right Negative Prone Instability Test: Negative IVAN Test: Left Positive, Right Negative Gait Gait Observation: Normal Education: Education Learning Preferences: Demonstration, Explanation, Printed Materials Barriers: None Learning/educational needs: Home exercise program, Safety, Plan of Care, Health promotion Education Provided: Yes, see treatment interventions for education provided Education Provided To: Patient Education Mode/Type: Demonstration, Explanation/Discussion, Literature/Printed Materials Response to Education/Teach Back: States/Identifies TREATMENT: PT Treatment Interventions: Therapeutic Exercise Evaluation Therapeutic Exercise: 1: Reviewed HEP Exercises. PT provided demonstration and cueing of exercises for proper completion. Pt demonstrated understanding. 2: Discussed therapy goals, exercise purpose, HEP handout provided. Discussed exam findings, differentials and anatomy related to her symptoms and exam. 3: *Seated L Hip External Rotation with GTB Resistance: x10. Discussed how to follow up manager band. 4: *Sidelying L Hip ABD: x10; verbal and tactile cues for form. 5: *Isometric L Glute Med at Wall: x10, 5-sec. 6: *L Rev Clamshell in S/L: x10. 7: *Discussed the purpose of STM using lacrosse ball vs wall for irritated soft tissue. 8: Discussed traction and DN as a treatment option moving forward. Skilled Intervention: Patient was educated in proper exercise technique and purpose for exercises. Reviewed and educated patient on additions/changes for home exercise program as above (*). Skilled judgment was used in selection of appropriate interventions. Provided written instruction for home exercise program to facilitate proper performance and compliance. Correct performance of therapeutic exercises was facilitated with verbal, visual, and tactile cuing. Patient education as noted. Billing * Evaluation Low Complexity: 1 Unit Therapeutic Exercise Treatment Minutes: 24 Skilled Treatment Time Minutes (timed and untimed codes): 43 Total Session Time (minutes): 43 Session Start Time : 1050 Session Stop Time : 1133 Dariusz Duncan PT documented in this encounter [facility] 07-06-2024 Note HNO ID: [id number] Author: DARIUSZ DUNCAN PT Service: ? Author Type: Physical Therapist Type: Progress Notes Filed: 07/06/2024 13:16 Note Text: Episode Visit Count: 1 Therapist That Will Accept/Oversee The Plan Of Care: Dariusz Duncan PT. Start of Care Date: 07/06/24 Onset Date: 06/06/24 Plan of Care Certification Date: 07/06/24 Next Certification Due Date: 08/13/24 Patient Identified by Name and Date of : Yes REHABILITATION AND SPORTS THERAPY PHYSICAL THERAPY EVALUATION PLAN OF CARE: Assessment: Johanna Carver presents with chief complaint of L Hip Pain that interferes with recreational activities, heavy exertion, working, bed mobility, twisting . The patient presents with impairments in ADL's, flexibility, independence in exercise, overall function, patient reported outcome measures, range of motion, strength, symptom management, and tissue tenderness. PROMIS? (Patient-Reported Outcomes Measurement Information System) scores were reviewed and identified as a rehabilitation concern. Prognosis for therapy is Good due to: current objective clinical presentation, good overall health status, positive past response to therapy . The patient will benefit from skilled therapy services to meet the goals established for this plan of care as noted below. Classification Pain Mechanism Classification: Nociceptive Low Back Pain Classification: Movement Control Goals for Episode of Care: established 07/06/24 Patient reported outcome of pain Interference will decrease T -score by a minimum of 5 points. [place] in home exercise program. Patient will increase flexibility of L Hip Internal Rotators. Increased strength of Hip ABD (bilat) and L ER to 5/5 mmt for improved performance of functional activities. Restore pain-free lumbar ROM to WNL to allow for improved functional mobility. Restore pain-free L Hip ER A/PROM. Decrease soft tissue tenderness grossly for improvements in pain and improved QOL. Patient Goals: Alleviate Pain. Time Frame for Goals and Treatment : 08/17/24 Planned Interventions, Frequency, and Duration: Current Frequency: 1x/week Duration: 5 weeks Total Number of Visits Planned: 5 Planned Treatment Interventions: Therapeutic exercise (88060), Neuromuscular re-education (92230), Manual therapy (38478), Therapeutic activities (99826), Self-correction management (38483), Patient/Family/Caregiver Education PLAN FOR NEXT VISIT: Review, correct and progress HEP as tolerated. Manual PRN. Patient demonstrates good understanding of plan of care and treatment. The above goals and plan of care were discussed and agreed upon by patient/family. SUBJECTIVE: L Hip pain the last month or so. Describes chronic low back pain with new onset of left-sided pain radiating from the lower back to the buttocks and down the left thigh to the knee. New pain started after a massage and wonders if the massage therapist pushed too hard. Worse with stair master, leg press, twisting, rolling over in bed. Chronic LBP is from fall down the stairs in 2018. PAST TBI as well. Just got orthotics a week ago, wondering if that is changing her hip pain. Also, states since working out more, it does seem like things have improved/settled. Discontinued Baclofen; initiated Zanaflex (has not taken this yet). Patient Goals: Alleviate Pain. 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 Recreation / Current Exercise: Enjoys working out. Intake Information: Prescription present Previous Treatment: Physical Therapy , Muscle relaxer , Chiropractor , Massage Falls Interview: No positive findings with falls interview Pain: Pain Pain Level: 1 Pain Location: Hip - Left Description: Aching PROMIS Scales 06/29/2024 06/14/2024 04/05/2024 Higher is Better Phys Func - T Score 55 (within normal limits) 63 (within normal limits) Phys Func - Percentile 69 90 Self-Eff Symptom - T Score 39 (Low) Self-Eff Symptom - Percentile 14 Cognitve Function - T Score 52 (within normal limits) Cognitive Function - Percentile 58 06/14/2024 04/05/2024 02/24/2023 Lower is Better Pain Interference - T Score 60 (mild) 62 (moderate) 56 (mild) Pain Interference - Percentile 16 12 27 T-scores: mean of general population = 50. 5 points is clinically meaningfully difference Percentiles provide an indication of how the patient's score ranks in relation to the general population. Higher percentile rankings indicate better function/quality of life. 50th percentile is the average of the general population and indicates half of respondents had a worse score. OBJECTIVE MEASURES WITH LEVEL OF FUNCTION: Hip Observations L Hip Palpation T (more content not included)... [facility] 06-21-2024 Instructions Gaby Solis MD - 06/21/2024 2:45 PM EDT We discussed your fatigue: - Your recent lab work showed normal thyroid function, hemoglobin, kidney function, and glucose levels. Your vitamin B12 was on the lower side, and vitamin D and iron levels were not checked previously. - I ordered blood tests to check your iron studies and vitamin D levels, as iron deficiency could contribute to your fatigue. - In the meantime, you can try an chpo-aoi-mjneaie iron syrup (such as those made for children) for better absorption, as you mentioned difficulty tolerating meat. We discussed your ADHD and medication: - I refilled your Adderall prescription (15 mg daily) for 90 pills, which should last 3 months. Please continue taking it as prescribed. - You reported that the medication helps you focus, stay organized, and manage daily tasks effectively. We discussed your tongue pain: - You mentioned persistent tongue pain and a white coating that has not resolved despite prior treatments with Nystatin and Diflucan. Upon examination, your tongue appeared normal, but I believe you when you say it hurts. - No additional treatment was recommended today, but please monitor your symptoms and let me know if they worsen. We discussed your occasional shortness of breath: - You reported noticing deeper breaths when sitting but no issues during physical activity or exercise. You also denied chest pain, leg swelling, or a history of blood clots. - To further evaluate, I ordered lung volume testing to check for possible asthma or other respiratory issues. Follow-Up: - Please complete the blood tests (iron studies and vitamin D) and lung volume testing as discussed. - I will see you back in 3 months to review your progress and lab results. If your symptoms worsen or you have any concerns before then, please contact the office. documented in this encounter [facility] 06-21-2024 Note HNO ID: [id number] Author: GABY SOLIS MD Service: ? Author Type: Physician Type: Progress Notes Filed: 06/21/2024 14:56 Note Text: Reason for Visit ADHD SILVIA Spencer is a 39-year-old female, with a history of ADHD and eosinophilic esophagitis, presenting for a follow-up and reports of fatigue, glossodynia, and dyspnea. Johanna reports persistent fatigue, noting a consistent onset of drowsiness at the same time each day, despite adherence to her current medication regimen. 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 She has been on Adderall 15 mg daily for the past 3-6 months, previously on 10 mg for a year, prescribed by Dr. Kovacs. She reports that Adderall has been effective in improving focus, reducing anxiety, and enhancing her ability to manage work and childcare responsibilities. She denies any side effects from Adderall. She also reports glossodynia with a white coating on her tongue since March. She has been treated with nystatin and Diflucan without improvement. The pain is exacerbated by eating and drinking, regardless of the food or beverage type. She denies any prior issues with her tongue. Additionally, she reports episodes of dyspnea characterized by the need to take deeper breaths, primarily occurring while sitting and not associated with physical activity. She denies any history of asthma, chest pain, or leg swelling. She has a history of eosinophilic esophagitis and has not undergone an endoscopy recently. She was previously on pantoprazole but discontinued it due to joint pain. She follows a gluten-free and dairy-free diet to manage her esophagitis symptoms and reports that her eosinophil count has been stable. She also mentions easy bruising and a recent episode of unilateral leg pain, which has since improved. She denies any history of blood clots. Social History Tobacco Use Smoking status: Former Current packs/day: 0.00 Types: Cigarettes Quit date: 12/25/2016 Years since quittin.4 Smokeless tobacco: Never Tobacco comments: A few cigarettes per week. Vaping Use Vaping status: Never Used Substance Use Topics Alcohol use: Not Currently Comment: seldom Drug use: Never Past medical history, appointments, medications, allergies reviewed. Pertinent Lab/Diagnostic Studies are reviewed and discussed today Current Outpatient Medications: tiZANidine (ZANAFLEX) 4 mg tablet fluticasone (FLONASE) 50 mcg/actuation nasal spray Clindamycin Phosphate (CLEOCIN T) 1 % lotion adapalene-benzoyl peroxide 0.3-2.5 % ibuprofen (MOTRIN ORAL) amphetamine-dextroamphetamine XR (ADDERALL XR) 15 mg capsule baclofen 10 mg tablet Health Maintenance There are no preventive care reminders to display for this patient.@ Review Of Systems Constitutional: (+) fatigue, (+) sleep disturbance Ears/Nose/Mouth/Throat: (+) tongue pain Cardiovascular: (-) chest pain Respiratory: (+) shortness of breath Musculoskeletal: (+) leg pain (unspecified side) Hematologic/Lymphatic: (+) easy bruising Physical Exam BP 112/68 Pulse 102 Resp 12 LMP 03/27/2024 (Within Weeks) SpO2 100% GENERAL: NAD, alert and oriented. SKIN: Unremarkable, no rash or skin lesions. HEAD: Normocephalic. EYES: PERRLA, EOMI, conjunctiva clear. Oropharynx: The tongue looks normal to me. NECK: Supple, no lymphadenopathy, normal thyroid, no carotid bruits. LUNGS: Clear to auscultation bilaterally, no wheezes/rhonchi/rales. HEART: Regular rate and rhythm, no murmurs. No ectopy. EXTREMITIES: Normal, no deformities, no skin discoloration, no edema. NEURO: Awake, alert and oriented x3, cranial nerves II-XII grossly intact, normal gait, no involuntary motions. Labs: - Thyroid function test: Normal - Vitamin B12: Low - ESR: 2 - CRP: 0.3 or less - Hemoglobin: 12 - WBC: Not elevated - GFR: 100 - Glucose: Normal Assessment and Plan 1. Attention deficit hyperactivity disorder (ADHD), predominantly inattentive type (F90.0) Well-controlled on Adderall 15 mg daily, which has improved focus and reduced agitation. - Refilled Adderall 15 mg for 90 days. - Follow-up in 3 months. 2. Vitamin D deficiency (E55.9) Vitamin D levels not previously checked. - Ordered vitamin D level. 3. Iron deficiency (E61.1) Diet low in meat; potential contributor to fatigue. - Ordered iron studies. - Recommended znjx-mqy-snmsaka iron syrup for better absorption. 4. Other fatigue (R53.83) Persistent fatigue despite normal thyroid function, B12 levels on the lower side, and no signs of inflammation. Hemoglobin at 12 g/dL, GFR at 100 mL/min/1.73 m?, normal WBC count, and normal glucose levels. - Monitor for improvement with iron supplementation. 5. SOB (shortness of breath) (R06.02) Intermittent shortness of breath noted while sitting, no history of asthma or pulmonary embolism, no leg swelling or chest pain. - Ordered pulmonary functi (more content not included)... [facility] 06-21-2024 History of Present illness Narrative Reason for Visit ADHD HPI Johanna is a 39-year-old female, with a history of ADHD and eosinophilic esophagitis, presenting for a follow-up and reports of fatigue, glossodynia, and dyspnea. Johanna reports persistent fatigue, noting a consistent onset of drowsiness at the same time each day, despite adherence to her current medication regimen. 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 She has been on Adderall 15 mg daily for the past 3-6 months, previously on 10 mg for a year, prescribed by Dr. Kovacs. She reports that Adderall has been effective in improving focus, reducing anxiety, and enhancing her ability to manage work and childcare responsibilities. She denies any side effects from Adderall. She also reports glossodynia with a white coating on her tongue since March. She has been treated with nystatin and Diflucan without improvement. The pain is exacerbated by eating and drinking, regardless of the food or beverage type. She denies any prior issues with her tongue. Additionally, she reports episodes of dyspnea characterized by the need to take deeper breaths, primarily occurring while sitting and not associated with physical activity. She denies any history of asthma, chest pain, or leg swelling. She has a history of eosinophilic esophagitis and has not undergone an endoscopy recently. She was previously on pantoprazole but discontinued it due to joint pain. She follows a gluten-free and dairy-free diet to manage her esophagitis symptoms and reports that her eosinophil count has been stable. She also mentions easy bruising and a recent episode of unilateral leg pain, which has since improved. She denies any history of blood clots. Social History Tobacco Use Smoking status: Former Current packs/day: 0.00 Types: Cigarettes Quit date: 12/25/2016 Years since quittin.4 Smokeless tobacco: Never Tobacco comments: A few cigarettes per week. Vaping Use Vaping status: Never Used Substance Use Topics Alcohol use: Not Currently Comment: seldom Drug use: Never Past medical history, appointments, medications, allergies reviewed. Pertinent Lab/Diagnostic Studies are reviewed and discussed today Current Outpatient Medications: tiZANidine (ZANAFLEX) 4 mg tablet fluticasone (FLONASE) 50 mcg/actuation nasal spray Clindamycin Phosphate (CLEOCIN T) 1 % lotion adapalene-benzoyl peroxide 0.3-2.5 % ibuprofen (MOTRIN ORAL) amphetamine-dextroamphetamine XR (ADDERALL XR) 15 mg capsule baclofen 10 mg tablet Health Maintenance There are no preventive care reminders to display for this patient.@ Review Of Systems Constitutional: (+) fatigue, (+) sleep disturbance Ears/Nose/Mouth/Throat: (+) tongue pain Cardiovascular: (-) chest pain Respiratory: (+) shortness of breath Musculoskeletal: (+) leg pain (unspecified side) Hematologic/Lymphatic: (+) easy bruising Physical Exam BP 112/68 Pulse 102 Resp 12 LMP 03/27/2024 (Within Weeks) SpO2 100% GENERAL: NAD, alert and oriented. SKIN: Unremarkable, no rash or skin lesions. HEAD: Normocephalic. EYES: PERRLA, EOMI, conjunctiva clear. Oropharynx: The tongue looks normal to me. NECK: Supple, no lymphadenopathy, normal thyroid, no carotid bruits. LUNGS: Clear to auscultation bilaterally, no wheezes/rhonchi/rales. HEART: Regular rate and rhythm, no murmurs. No ectopy. EXTREMITIES: Normal, no deformities, no skin discoloration, no edema. NEURO: Awake, alert and oriented x3, cranial nerves II-XII grossly intact, normal gait, no involuntary motions. Labs: - Thyroid function test: Normal - Vitamin B12: Low - ESR: 2 - CRP: 0.3 or less - Hemoglobin: 12 - WBC: Not elevated - GFR: 100 - Glucose: Normal Assessment and Plan 1. Attention deficit hyperactivity disorder (ADHD), predominantly inattentive type (F90.0) Well-controlled on Adderall 15 mg daily, which has improved focus and reduced agitation. - Refilled Adderall 15 mg for 90 days. - Follow-up in 3 months. 2. Vitamin D deficiency (E55.9) Vitamin D levels not previously checked. - Ordered vitamin D level. 3. Iron deficiency (E61.1) Diet low in meat; potential contributor to fatigue. - Ordered iron studies. - Recommended pwqk-iqr-zjkctiu iron syrup for better absorption. 4. Other fatigue (R53.83) Persistent fatigue despite normal thyroid function, B12 levels on the lower side, and no signs of inflammation. Hemoglobin at 12 g/dL, GFR at 100 mL/min/1.73 m , normal WBC count, and normal glucose levels. - Monitor for improvement with iron supplementation. 5. SOB (shortness of breath) (R06.02) Intermittent shortness of breath noted while sitting, no history of asthma or pulmonary embolism, no leg swelling or chest pain. - Ordered pulmonary function tests to evaluate for asthma. Voice recognition software was used to compose this office note. Please excuse any unintended typographical errors. Recording using ambient [employer] software for draft documentation of the visit was discussed with the patient/authorized financial service representative; all questions welcomed and answered. Patient/authorized financial service representative agreed to proceed Gaby Solis MD documented in this encounter [facility] 06-17-2024 Note HNO ID: [id number] Author: OCTAVIO ROTHMAN MD Service: ? Author Type: Physician Type: Progress Notes Filed: 06/17/2024 17:22 Note Text: [facility] Neurological [facility] video visit REQUESTED BY: No ref. provider found Johanna Carver was seen by Octavio Rothman MD on 06/17/2024. HPI: Johanna Carver is a pleasant 39 year old female referred by No ref. provider found for evaluation of a complaint of back pain. -fms chronic pain last seen 2018 Johanna is a 39-year-old female presenting for evaluation of new onset left buttock, lateral hip pain, tender to touch no falls.. Johanna reports a six-week history of new onset pain in the left leg. The pain originates in the left lower back, slightly above the buttocks, and radiates around the left hip, down the left side, and into the left thigh, sometimes extending to the knee. She describes the pain as aching, dull, and shooting, noting that it is tender to touch. She also reports difficulty flexing the leg, despite being flexible and stretching regularly. The pain is not constant but is described as abnormal and unusual for her. She has a history of chronic back pain and muscle spasms, for which she has been taking baclofen as needed, up to twice daily. She is uncertain if the baclofen is still effective, stating, I don't know if it's ineffective or if it's helpful. She also uses ibuprofen for inflammation but prefers non-pharmacological treatments such as massage, stretching, and ice, as she feels Tylenol is ineffective. She expresses concern about overusing ibuprofen. She mentions that the new pain started after a massage and wonders if the massage therapist pushed too hard. She has also seen a chiropractor. She does not endorse pain beyond the side of the hip. Past Diagnostic Results: Imaging - MRI: Small disc on the right side; no findings on the left side. hx of l4-5 disc bulge right cprp Chronic Pain Syndrome Pain disorder associated with medical and psychological factors. Generalized anxiety disorder H/O ADHD ROS: 14 systems reviewed and otherwise negative unless mentioned above. Patient Entered Questionnaires 04/28/2020 02/24/2023 06/14/2024 Spine Questions Pain Location: Lower back Lower back Lower back Pain Duration: 6 months - 1 year More than 5 years More than 5 years Pain over last 6 months: Less than half the days in the past 6 months Every day or nearly every day in the past 6 months At least half the days in the past 6 months Symptoms from neck/cervical spine: Yes Yes No Employment Status: Working now Looking for work, unemployed Working now Off work 1 month or more due to back/neck pain: Does not apply Applied for/receive disability/WC due to low back/neck pain Does not apply Involved in law suit/legal claim: No No No 04/28/2020 02/24/2023 06/14/2024 Spine Red Flags Any type of cancer: No No No Unexplained fever: No No No Bowel or bladder disfunction: No No No Unintentional weight loss: No No No Osteoporosis: No No No 04/28/2020 02/24/2023 Neck Questionnaires Benzel Modified EVELYN Score 18 (No Myelopathy Symptoms) 17 (Mild Myelopathy Symptoms) PROMIS Score Percentiles 02/24/2023 04/05/2024 06/14/2024 Physical Health Physical Function Percentile 38 90 69 Sleep Percentile 79 42 34 Fatigue Percentile 58 46 4 Pain Interference Percentile 27* 12 16* 02/24/2023 04/05/2024 06/14/2024 PROMIS SOCIAL ROLE SCORE Social Role Satisfaction Percentile 31 86 24* 02/24/2023 03/24/2024 06/14/2024 PROMIS Global Health Scale Physical Health Percentile 53 78 66 Mental Health Percentile 63 82 82 Patient-reported Percentiles provide an indication of how the patient's score ranks in relation to the general population. Higher percentile rankings indicate better function/quality of life. 50th percentile is the average of the general population and indicates half of respondents had a worse score. Depression Screenin02/24/2023 04/15/2023 06/14/2024 PHQ-9 Score 0 0 4 02/24/2023 04/15/202306/1406/14/2024 PHQ-9 Self-harm Question Question 9 Not at all Not at all Not at all PHQ-9 Self-Harm (Item 9) response options: 0 Not at all 1 Several days 2 More than half the days 3 Nearly every day PHQ-9 Levels: 0-4 No - mild depression 5-9 Mild depression 10-14 Moderate depression 15-19 Moderately severe depression 20-27 Severe depression ACTIVE PROBLEM LIST Hallux Valgus (Acquired) Congenital Pes Planus Abnormality of Gait Depressive Disorder, Not Elsewhere Classified Unspecified Symptom Associated With Female Genital Organs Dysuria Trigonitis Microscopic Hematuria Spasm of Muscle Depression Generalized Anxiety Disorder Post Concussion Syndrome Traumatic Brain Injury (Hcc) Attention Deficit Hyperactivity Disorder (Adhd), Predominantly Inattentive Type PAST MEDICAL HISTORY Diagnosis Date ADHD (attention deficit hyperactivity disorde (more content not included)... [facility] 06-02-2024 Telephone encounter Note Patient notified, patient upset that although her levels are normal they are still low and feels her concerns are not taken seriously. Nurse explained to patient that referral and labs will be sent to ENT so they can advise patient. Referral sent [facility] 06-02-2024 Miscellaneous Notes Patient notified, patient upset that although her levels are normal they are still low and feels her concerns are not taken seriously. Nurse explained to patient that referral and labs will be sent to ENT so they can advise patient. Referral sent Blood work without cause of her tongue concerns. I would like her to see ENT. Thank you Antoinette Anthony APRN.ENGINE TEST CELL TECHNICIAN documented in this encounter [facility] 06-02-2024 Telephone encounter Note Blood work without cause of her tongue concerns. I would like her to see ENT. Thank you Antoinette Anthony APRN.ENGINE TEST CELL TECHNICIAN [facility] 05-31-2024 Note HNO ID: [id number] Author: ANTOINETTE ANTHONY APRN.FLORI Service: ? Author Type: Nurse Practitioner Type: Progress Notes Filed: 05/31/2024 17:07 Note Text: CC: Patient presents with: Recheck: Follow up oral thrush HPI Johanna Carver is a 38 year old female who presents today for multiple concerns including ongoing thrush and tongue pain. Patient states that she has had multiple issues with thrush She has been on nystain swish and swallow and diflucan, most recently early april. This upset her stomach; but she still finished. She feels like her tongue hurts and has a film on her tongue. She has also had Diflucan recently for vaginal yeast about the same time. She has had ongoing issues for months per patient but does not feel like the symptoms have completely gone away. She also feels more fatigued than normal, brain fog, and noted two areas of bruising on her left knee and hip but does not remember any injury. Did have a recent workup for STDs ad negative for HIV. She states she limits her diet to no gluten/ no dairy because of her eosinophilic esophagitis. Denies any ongoing abdominal pain but has had bloating at her last menstrual cycle that was abnormal, not excessive bleeding. Denies any recent fevers or chills. 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 Patient with tachycardia during visit. Came straight from gym and has not slept and drank a lot of caffeine. Denies chest pain, shortness of breath, palpitations, or dizziness. REVIEW OF SYSTEMS General: no fevers, no chills, no night sweats, no change in appetite, no change in energy, and no significant changes in weight HEENT: no frequent or significant headaches, no changes in hearing, no visual changes, no nose bleeds, no sinus or nasal problems Neck: no lumps, no pain , and no swelling Respiratory: no cough, no wheezing, no shortness of breath, no hemoptysis Cardiovascular: no chest pain, no chest pressure, no palpitations, and no swelling GI: No nausea, vomiting, or diarrhea : No history of dysuria, frequency or incontinence Musculoskeletal: Negative for joint pain or swelling, back pain or muscle pain Skin: Negative for lesions, rash, and itching Hematologic/Lymph: See HPI Neurologic: No headache, weakness, numbness, tingling, neck stiffness, tremor, vertigo, dizziness, memory loss, syncope. See HPI PAST MEDICAL HISTORY Diagnosis Date ADHD (attention deficit hyperactivity disorder) Adjustment disorder with depressed mood was previously on Paxil/effexor, self dc'ed for weight gain. Anemia Concussion 2016 Depressive disorder, not elsewhere classified Environmental and seasonal allergies Eosinophilic esophagitis 2016 Esophageal dysmotility 02/27/2018 Foot fracture, left 2016 TBI (traumatic brain injury) ([facility]) Unspecified symptom associated with female genital organs Pain in the vulvar area PAST SURGICAL HISTORY Procedure Laterality Date CORRECT BUNION,SIMPLE 2006 right EGD 1 or 2 times yearly REDUCTION OF LARGE BREAST 10/05/2008 Bilateral, uncomplciated RPR 1ST INGUN HRNA FULL TERM INFT <6 MO RDC ALLERGIES Penicillins and Sulfa (Sulfonamide Antibiotics) MEDICATIONS fluticasone (FLONASE) 50 mcg/actuation nasal spray Use 2 sprays in each nostril once daily. Rinse mouth after use. amphetamine-dextroamphetamine XR (ADDERALL XR) 15 mg capsule Take 1 capsule by mouth once daily for 30 days. baclofen 10 mg tablet 1 tab bid prn for spasms Clindamycin Phosphate (CLEOCIN T) 1 % lotion Apply once a day as a spot treatment to the face adapalene-benzoyl peroxide 0.3-2.5 % Apply to affected area three times a week. ibuprofen (MOTRIN ORAL) Take 400 mg by mouth as needed. FAMILY HISTORY Problem Relation Age of Onset Psychiatry Mother post depression No Known Problems Father No Known Problems Sister No Known Problems Sister Ischemic Heart Disease Maternal Grandfather Heart Paternal Grandmother Pacemaker Cancer Paternal Grandmother Ischemic Heart Disease Paternal Grandfather Social History Tobacco Use Smoking status: Former Current packs/day: 0.00 Types: Cigarettes Quit date: 12/25/2016 Years since quittin.4 Smokeless tobacco: Never Tobacco comments: A few cigarettes per week. Vaping Use Vaping status: Never Used Substance Use Topics Alcohol use: Not Currently Comment: seldom Drug use: Never PHYSICAL EXAM BP 106/68 Pulse 90 Resp 16 LMP 03/27/2024 (Within Weeks) SpO2 98% General Appearance: well appearing, in no acute distress, alert Skin: Skin color, texture, turgor normal for age; Head: normocephalic, atraumatic Eyes: PERRLA, EOM's intact, conjunctiva pink and moist, no icterus, sclera white, non-injected Ears: external ears normal to inspection and palpation, canals clear, Left tympanic membrane normal. , Right tympanic membrane normal Oropharynx: Positive for glossitis Lymph nodes: No cervical lymphadenopathy and No supracla (more content not included)... [facility] 05-31-2024 History of Present illness Narrative CC: Patient presents with: Recheck: Follow up oral thrush HPI Johanna Carver is a 38 year old female who presents today for multiple concerns including ongoing thrush and tongue pain. Patient states that she has had multiple issues with thrush She has been on nystain swish and swallow and diflucan, most recently early april. This upset her stomach; but she still finished. She feels like her tongue hurts and has a film on her tongue. She has also had Diflucan recently for vaginal yeast about the same time. She has had ongoing issues for months per patient but does not feel like the symptoms have completely gone away. She also feels more fatigued than normal, brain fog, and noted two areas of bruising on her left knee and hip but does not remember any injury. Did have a recent workup for STDs ad negative for HIV. She states she limits her diet to no gluten/ no dairy because of her eosinophilic esophagitis. Denies any ongoing abdominal pain but has had bloating at her last menstrual cycle that was abnormal, not excessive bleeding. Denies any recent fevers or chills. 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 Patient with tachycardia during visit. Came straight from gym and has not slept and drank a lot of caffeine. Denies chest pain, shortness of breath, palpitations, or dizziness. REVIEW OF SYSTEMS General: no fevers, no chills, no night sweats, no change in appetite, no change in energy, and no significant changes in weight HEENT: no frequent or significant headaches, no changes in hearing, no visual changes, no nose bleeds, no sinus or nasal problems Neck: no lumps, no pain , and no swelling Respiratory: no cough, no wheezing, no shortness of breath, no hemoptysis Cardiovascular: no chest pain, no chest pressure, no palpitations, and no swelling GI: No nausea, vomiting, or diarrhea : No history of dysuria, frequency or incontinence Musculoskeletal: Negative for joint pain or swelling, back pain or muscle pain Skin: Negative for lesions, rash, and itching Hematologic/Lymph: See HPI Neurologic: No headache, weakness, numbness, tingling, neck stiffness, tremor, vertigo, dizziness, memory loss, syncope. See HPI PAST MEDICAL HISTORY Diagnosis Date ADHD (attention deficit hyperactivity disorder) Adjustment disorder with depressed mood was previously on Paxil/effexor, self dc'ed for weight gain. Anemia Concussion 2015 Depressive disorder, not elsewhere classified Environmental and seasonal allergies Eosinophilic esophagitis 2016 Esophageal dysmotility 02/27/2018 Foot fracture, left 2016 TBI (traumatic brain injury) ([facility]) Unspecified symptom associated with female genital organs Pain in the vulvar area PAST SURGICAL HISTORY Procedure Laterality Date CORRECT BUNION,SIMPLE 2006 right EGD 1 or 2 times yearly REDUCTION OF LARGE BREAST 10/05/2008 Bilateral, uncomplciated RPR 1ST INGUN HRNA FULL TERM INFT <6 MO RDC ALLERGIES Penicillins and Sulfa (Sulfonamide Antibiotics) MEDICATIONS fluticasone (FLONASE) 50 mcg/actuation nasal spray Use 2 sprays in each nostril once daily. Rinse mouth after use. amphetamine-dextroamphetamine XR (ADDERALL XR) 15 mg capsule Take 1 capsule by mouth once daily for 30 days. baclofen 10 mg tablet 1 tab bid prn for spasms Clindamycin Phosphate (CLEOCIN T) 1 % lotion Apply once a day as a spot treatment to the face adapalene-benzoyl peroxide 0.3-2.5 % Apply to affected area three times a week. ibuprofen (MOTRIN ORAL) Take 400 mg by mouth as needed. FAMILY HISTORY Problem Relation Age of Onset Psychiatry Mother post depression No Known Problems Father No Known Problems Sister No Known Problems Sister Ischemic Heart Disease Maternal Grandfather Heart Paternal Grandmother Pacemaker Cancer Paternal Grandmother Ischemic Heart Disease Paternal Grandfather Social History Tobacco Use Smoking status: Former Current packs/day: 0.00 Types: Cigarettes Quit date: 12/25/2016 Years since quittin.4 Smokeless tobacco: Never Tobacco comments: A few cigarettes per week. Vaping Use Vaping status: Never Used Substance Use Topics Alcohol use: Not Currently Comment: seldom Drug use: Never PHYSICAL EXAM BP 106/68 Pulse 90 Resp 16 LMP 03/27/2024 (Within Weeks) SpO2 98% General Appearance: well appearing, in no acute distress, alert Skin: Skin color, texture, turgor normal for age; Head: normocephalic, atraumatic Eyes: PERRLA, EOM's intact, conjunctiva pink and moist, no icterus, sclera white, non-injected Ears: external ears normal to inspection and palpation, canals clear, Left tympanic membrane normal. , Right tympanic membrane normal Oropharynx: Positive for glossitis Lymph nodes: No cervical lymphadenopathy and No supraclavicular lymphadenopathy Lungs: Lungs clear to auscultation. No wheezing, rhonchi, rales. Heart: rate at 110 but slightly irregular without murmur, gallop, or rubs. No ectopy Abdomen: Abdomen soft, non-tender. Bowel sounds normal. No masses, organomegaly Extremities: No deformities, edema, skin discoloration, clubbing or cyanosis. Good capillary refill. Musculoskeletal: No joint swelling, deformity, or tenderness Neurological: Gait normal. Reflexes normal and symmetric. Sensation grossly intact. Health maintenance reviewed with patient: Influenza Vaccine(1) due on 08/23/2024 Covid-19 Vaccine( season) due on 03/25/2025 DTaP,Tdap,Td Vaccine(8 - Td or Tdap) due on 08/24/2025 Cervical Cancer Screening due on 01/03/2028 Hepatitis B Vaccine Completed Hepatitis C Screening Completed HIV Screening Completed DATA REVIEWED: Most recent labs and imaging results. ASSESSMENT/PLAN: 1. Other fatigue - ICD9: 780.79, ICD10: R53.83 (primary diagnosis) Not convinced this is thrush at this point. Concern for vitamin deficiencies or additional autoimmune component. Will proceed with laboratory work up. - VITAMIN B12 - C-REACTIVE PROTEIN - SEDIMENTATION RATE, WESTERGREN - COMPLETE BLOOD COUNT AND DIFFERENTIAL - THYROID STIMULATING HORMONE 2. 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 Brain fog - ICD9: 799.59, ICD10: R41.89 See #1 - C-REACTIVE PROTEIN - SEDIMENTATION RATE, WESTERGREN - COMPLETE BLOOD COUNT AND DIFFERENTIAL - THYROID STIMULATING HORMONE 5. Easy bruising - ICD9: 782.7, ICD10: R23.3 See #1 - COMPLETE BLOOD COUNT AND DIFFERENTIAL - COMPREHENSIVE METABOLIC PANEL 6. Tachycardia - ICD9: 785.0, ICD10: R00.0 ecg normal and at end of visit - HR lowered - can continue aderall at this time. ECG reviewed NSR. 93 regular qrs normal. pR 140ms Qtc 432 - ECG COMPLETE - 7. Cardiac arrhythmia, unspecified cardiac arrhythmia type - ICD9: 427.9, ICD10: I49.9 Sinus arrhythmia suspected on exam with elevated HR. ECG with NSR. No ectopy noted. - ECG COMPLETE YAZMIN Campbell-student Prescription instructions reviewed with patient as applicable. Potential red flag symptoms discussed with the patient. Reviewed appropriate action plan to take if red flag symptoms occur. Patient agreeable to treatment plan. Antoinette Anthony APRN.FLORI documented in this encounter [facility] 05-31-2024 Telephone encounter Note Patient calls to report a reoccurrence of oral thrush. Painful tongue and white coating to the tongue. Same day appointment scheduled. Patient wanting to know what treatment can be done since this keeps reoccurring. Patient asking about a culture. Notified that would be up to the provider that evaluates patient as to the testing/treatment provided. Patient verbalizes understanding. Moreno Manning RN [facility] 05-31-2024 Miscellaneous Notes Patient calls to report a reoccurrence of oral thrush. Painful tongue and white coating to the tongue. Same day appointment scheduled. Patient wanting to know what treatment can be done since this keeps reoccurring. Patient asking about a culture. Notified that would be up to the provider that evaluates patient as to the testing/treatment provided. Patient verbalizes understanding. Moreno Manning, RN documented in this encounter [facility] 05-24-2024 Telephone encounter Note PDMP website checked and validated. All prescriptions have been APPROPRIATELY filled. No suspicious activity was identified. 05/24/2024 by Antoinette Anthony APRN.CNP [facility] 05-24-2024 Miscellaneous Notes PDMP website checked and validated. All prescriptions have been APPROPRIATELY filled. No suspicious activity was identified. 05/24/2024 by Antoinette Anthony APRN.CNP Patient has been identified by name and date of : Yes Patient phones for refill(s): Requested Prescriptions Pending Prescriptions Disp Refills amphetamine-dextroamphetamine XR (ADDERALL XR) 15 mg capsule 30 capsule 0 Sig: Take 1 capsule by mouth once daily for 30 days. Date of last office visit in primary care: 03/25/2024 Date of next office visit in primary care: 06/21/2024 Please advise. Thank you. Loree Carrasco LPN. documented in this encounter [facility] 05-24-2024 Telephone encounter Note Patient has been identified by name and date of : Yes Patient phones for refill(s): Requested Prescriptions Pending Prescriptions Disp Refills amphetamine-dextroamphetamine XR (ADDERALL XR) 15 mg capsule 30 capsule 0 Sig: Take 1 capsule by mouth once daily for 30 days. Date of last office visit in primary care: 03/25/2024 Date of next office visit in primary care: 06/21/2024 Please advise. Thank you. Loree Carrasco LPN. [facility] 05-12-2024 Telephone encounter Note PDMP website checked and validated. All prescriptions have been APPROPRIATELY filled. No suspicious activity was identified. 05/12/2024 by Antoinette Anthony APRN.FLORI [facility] 05-12-2024 Miscellaneous Notes PDMP website checked and validated. All prescriptions have been APPROPRIATELY filled. No suspicious activity was identified. 05/12/2024 by Antoinette Anthony APRN.FLORI The patient has been identified by name and date of : Yes Caregiver verified no other encounters exist for this prescription request: Yes Caregiver confirmed with patient/requestor that no other refills are due, in the near future, with this provider at this time: Yes The last office visit in the department: 03/25/2024 Does the patient have a future office visit with this provider/department: Yes 06/21/2024 Requested Prescriptions Pending Prescriptions Disp Refills amphetamine-dextroamphetamine XR (ADDERALL XR) 15 mg capsule 30 capsule 0 Sig: Take 1 capsule by mouth once daily for 30 days. Patient should start on May 23, 2024. Moreno Manning RN May 11, 2024 12:15 PM documented in this encounter [facility] 05-11-2024 Telephone encounter Note The patient has been identified by name and date of : Yes Caregiver verified no other encounters exist for this prescription request: Yes Caregiver confirmed with patient/requestor that no other refills are due, in the near future, with this provider at this time: Yes The last office visit in the department: 03/25/2024 Does the patient have a future office visit with this provider/department: Yes 06/21/2024 Requested Prescriptions Pending Prescriptions Disp Refills amphetamine-dextroamphetamine XR (ADDERALL XR) 15 mg capsule 30 capsule 0 Sig: Take 1 capsule by mouth once daily for 30 days. Patient should start on May 23, 2024. Moreno Manning RN May 11, 2024 12:15 PM [facility] 04-26-2024 Telephone encounter Note [facility]: 02/26/23 w/ NOV: 06/17/24 w/ Plan at [facility]: acute on chronic, mild spondylosis on mri. Fms, sadaf, back pain is chronic, neck pain is better now CONSULT TO PHYSICAL THERAPY not completed, order cancelled d/t expiration -proper posture counselling - heat - prn baclofen - no spine intervention indicated Imaging Ordered: None Rx last ordered on 07/31/23 by Request sent to for review. [facility] 04-26-2024 Miscellaneous Notes [facility]: 02/26/23 w/ NOV: 06/17/24 w/ Plan at [facility]: acute on chronic, mild spondylosis on mri. Fms, sadaf, back pain is chronic, neck pain is better now CONSULT TO PHYSICAL THERAPY not completed, order cancelled d/t expiration -proper posture counselling - heat - prn baclofen - no spine intervention indicated Imaging Ordered: None Rx last ordered on 07/31/23 by Request sent to for review. Patient phones requesting refills as follows: FYI: Transferred patient to make a follow-up appt ([facility] 02/26/23). Requested Prescriptions Pending Prescriptions Disp Refills baclofen 10 mg tablet 40 tablet 4 Si tab bid prn for spasms Last visit: 02/26/23 Pharmacy: [facility] Current Dosage: Patient is currently taking as needed; Has 0 left. Please review and advise; ph: [phone] documented in this encounter [facility] 04-26-2024 Telephone encounter Note Patient phones requesting refills as follows: FYI: Transferred patient to make a follow-up appt ([facility] 02/26/23). Requested Prescriptions Pending Prescriptions Disp Refills baclofen 10 mg tablet 40 tablet 4 Si tab bid prn for spasms Last visit: 02/26/23 Pharmacy: [facility] Current Dosage: Patient is currently taking as needed; Has 0 left. Please review and advise; ph: [phone] [facility] [facility] 04-22-2024 Telephone encounter Note PDMP website checked and validated. All prescriptions have been APPROPRIATELY filled. No suspicious activity was identified. 04/22/2024 by Antoinette Anthony APRN.CNP [facility] 04-22-2024 Miscellaneous Notes PDMP website checked and validated. All prescriptions have been APPROPRIATELY filled. No suspicious activity was identified. 04/22/2024 by Antoinette Anthony APRN.CNP The patient has been identified by name and date of : Yes Caregiver verified no other encounters exist for this prescription request: Yes Caregiver confirmed with patient/requestor that no other refills are due, in the near future, with this provider at this time: Yes The last office visit in the department: 03/25/2024 Pt reports she is out of medication. Does the patient have a future office visit with this provider/department: Yes 06/21/2024 Requested Prescriptions Pending Prescriptions Disp Refills amphetamine-dextroamphetamine XR (ADDERALL XR) 15 mg capsule 30 capsule 0 Sig: Take 1 capsule by mouth once daily for 30 days. Tristen Bernard RN April 22, 2024 9:57 AM documented in this encounter [facility] 04-22-2024 Telephone encounter Note The patient has been identified by name and date of : Yes Caregiver verified no other encounters exist for this prescription request: Yes Caregiver confirmed with patient/requestor that no other refills are due, in the near future, with this provider at this time: Yes The last office visit in the department: 03/25/2024 Pt reports she is out of medication. Does the patient have a future office visit with this provider/department: Yes 06/21/2024 Requested Prescriptions Pending Prescriptions Disp Refills amphetamine-dextroamphetamine XR (ADDERALL XR) 15 mg capsule 30 capsule 0 Sig: Take 1 capsule by mouth once daily for 30 days. Tristen Bernard RN April 22, 2024 9:57 AM [facility] 04-19-2024 Note HNO ID: [id number] Author: LENA OLGUIN APRN.ENGINE TEST CELL TECHNICIAN Service: ? Author Type: Nurse Practitioner Type: Progress Notes Filed: 04/19/2024 10:03 Note Text: Patient declined paperhanger. Johanna Carver is a 38 year old female who presents for problem visit vaginal discharge for 2 week(s). HPI: Patient states that she was on a long-term antibiotic for an oral infection and then was treated with 2 rounds of Diflucan for a yeast infection by her primary care. But she is still noticing some vaginal irritation and believes that she may also have thrush. OB History Gravida2 Para0 Term0 Preterm0 AB0 Living2 SAB0 IAB0 Ectopic0 Multiple0 Live Births0 Bed Manager History LMP: 03/27/2024 (Within Weeks), Having periods Age at Menarche: Age at First : Age at Menopause: Bed Manager History Comments: Sexual Activity: Not Currently; Male Contraception: Condom PAST MEDICAL HISTORY Diagnosis Date ADHD (attention deficit hyperactivity disorder) Adjustment disorder with depressed mood was previously on Paxil/effexor, self ky'ed for weight gain. Anemia Concussion 2016 Depressive disorder, not elsewhere classified Environmental and seasonal allergies Eosinophilic esophagitis 2016 Esophageal dysmotility 02/27/2018 Foot fracture, left 2016 TBI (traumatic brain injury) ([facility]) Unspecified symptom associated with female genital organs Pain in the vulvar area PAST SURGICAL HISTORY Procedure Laterality Date CORRECT BUNION,SIMPLE 2006 right EGD 1 or 2 times yearly REDUCTION OF LARGE BREAST 10/05/2008 Bilateral, uncomplciated RPR 1ST INGUN HRNA FULL TERM INFT <6 MO RDC FAMILY HISTORY Problem Relation Age of Onset Psychiatry Mother post depression No Known Problems Father No Known Problems Sister No Known Problems Sister Ischemic Heart Disease Maternal Grandfather Heart Paternal Grandmother Pacemaker Cancer Paternal Grandmother Ischemic Heart Disease Paternal Grandfather Social History Tobacco Use Smoking status: Former Current packs/day: 0.00 Types: Cigarettes Quit date: 12/25/2016 Years since quittin.3 Smokeless tobacco: Never Tobacco comments: A few cigarettes per week. Vaping Use Vaping status: Never Used Substance Use Topics Alcohol use: Not Currently Comment: seldom Drug use: Never Current Outpatient Medications Medication Sig baclofen 10 mg tablet 1 tab bid prn for spasms Clindamycin Phosphate (CLEOCIN T) 1 % lotion Apply once a day as a spot treatment to the face nystatin (MYCOSTATIN) 100,000 units/mL oral liquid Take 5 mL by mouth three times a day for 5 days. fluconazole (DIFLUCAN) 100 mg tablet Take 1 tablet by mouth once daily. Take 2 tablets on day 1 then 1 tablet daily after (Patient not taking: Reported on 04/19/2024) amphetamine-dextroamphetamine XR (ADDERALL XR) 15 mg capsule Take 1 capsule by mouth once daily for 30 days. Patient should start on March 12, 2024. spironolactone (ALDACTONE) 25 mg tablet Take 25 mg by mouth once daily. (Patient not taking: Reported on 04/19/2024) fluticasone (FLONASE) 50 mcg/actuation nasal spray Use 2 Sprays in each nostril once daily. Rinse mouth after use. adapalene-benzoyl peroxide 0.3-2.5 % Apply to affected area three times a week. ibuprofen (MOTRIN ORAL) Take 400 mg by mouth as needed. No current facility-administered medications for this visit. Allergies As of Date: 04/19/2024 Allergen Noted Reaction PENICILLINS 10/03/2005 Hives SULFA (SULFONAMIDE ANTIBIOTICS) 05/31/2019 Swelling Fully Assessed 03/25/2024 REVIEW OF SYSTEMS Abdomen: No bloating, early satiety, indigestion, or increased flatulence. No abdominal pain, nausea, vomiting, diarrhea, or constipation. Bladder: No dysuria, gross hematuria, urinary frequency, urinary urgency, or incontinence. Expanded ROS: N/A Allergies and current medication updated:Yes SENSITIVE EXAM: The sensitive examination was discussed with the Patient or Patient's Authorized Claims Agent Right Of Way. As applicable, any other physician, advance practice provider, medical student, or other health professional student that will be observing or involved in the sensitive examination for educational or training purposes was discussed with the Patient or Authorized Claims Agent Right Of Way. The Patient or Authorized Claims Agent Right Of Way has agreed to proceed with the sensitive examination. (Sensitive examination includes inspection and/or palpation of the breasts, pelvis, prostate and anorectal regions). EXAM: BP 122/64 Wt 0 lb (0.0kg) LMP 03/27/2024 GENERAL: pleasant, female in no apparent distress HEENT: Normocephalic, atraumatic, mucus membranes moist, no lesions, and +white coating on posterior tongue CHEST: Normal inspiratory effort PELVIC: external genitalia normal, normal Bartholin's glands, urethra, [place]'s glands, no vulvar lesions, no cervical lesions, good vaginal support, physiologic discharge present, normal appearing (more content not included)... [facility] 04-19-2024 History of Present illness Narrative Patient declined paperhanger. Johanna Carver is a 38 year old female who presents for problem visit vaginal discharge for 2 week(s). HPI: Patient states that she was on a long-term antibiotic for an oral infection and then was treated with 2 rounds of Diflucan for a yeast infection by her primary care. But she is still noticing some vaginal irritation and believes that she may also have thrush. OB History Gravida2 Para0 Term0 Preterm0 AB0 Living2 SAB0 IAB0 Ectopic0 Multiple0 Live Births0 Bed Manager History LMP: 03/27/2024 (Within Weeks), Having periods Age at Menarche: Age at First : Age at Menopause: Bed Manager History Comments: Sexual Activity: Not Currently; Male Contraception: Condom PAST MEDICAL HISTORY Diagnosis Date ADHD (attention deficit hyperactivity disorder) Adjustment disorder with depressed mood was previously on Paxil/effexor, self dc'ed for weight gain. Anemia Concussion 2016 Depressive disorder, not elsewhere classified Environmental and seasonal allergies Eosinophilic esophagitis 2016 Esophageal dysmotility 02/27/2018 Foot fracture, left 2016 TBI (traumatic brain injury) ([facility]) Unspecified symptom associated with female genital organs Pain in the vulvar area PAST SURGICAL HISTORY Procedure Laterality Date CORRECT BUNION,SIMPLE 2006 right EGD 1 or 2 times yearly REDUCTION OF LARGE BREAST 10/05/2008 Bilateral, uncomplciated RPR 1ST INGUN HRNA FULL TERM INFT <[address] FAMILY HISTORY Problem Relation Age of Onset Psychiatry Mother post depression No Known Problems Father No Known Problems Sister No Known Problems Sister Ischemic Heart Disease Maternal Grandfather Heart Paternal Grandmother Pacemaker Cancer Paternal Grandmother Ischemic Heart Disease Paternal Grandfather Social History Tobacco Use Smoking status: Former Current packs/day: 0.00 Types: Cigarettes Quit date: 12/25/2016 Years since quittin.3 Smokeless tobacco: Never Tobacco comments: A few cigarettes per week. Vaping Use Vaping status: Never Used Substance Use Topics Alcohol use: Not Currently Comment: seldom Drug use: Never Current Outpatient Medications Medication Sig baclofen 10 mg tablet 1 tab bid prn for spasms Clindamycin Phosphate (CLEOCIN T) 1 % lotion Apply once a day as a spot treatment to the face nystatin (MYCOSTATIN) 100,000 units/mL oral liquid Take 5 mL by mouth three times a day for 5 days. fluconazole (DIFLUCAN) 100 mg tablet Take 1 tablet by mouth once daily. Take 2 tablets on day 1 then 1 tablet daily after (Patient not taking: Reported on 04/19/2024) amphetamine-dextroamphetamine XR (ADDERALL XR) 15 mg capsule Take 1 capsule by mouth once daily for 30 days. Patient should start on March 12, 2024. spironolactone (ALDACTONE) 25 mg tablet Take 25 mg by mouth once daily. (Patient not taking: Reported on 04/19/2024) fluticasone (FLONASE) 50 mcg/actuation nasal spray Use 2 Sprays in each nostril once daily. Rinse mouth after use. adapalene-benzoyl peroxide 0.3-2.5 % Apply to affected area three times a week. ibuprofen (MOTRIN ORAL) Take 400 mg by mouth as needed. No current facility-administered medications for this visit. Allergies As of Date: 04/19/2024 Allergen Noted Reaction PENICILLINS 10/03/2005 Hives SULFA (SULFONAMIDE ANTIBIOTICS) 05/31/2019 Swelling Fully Assessed 03/25/2024 REVIEW OF SYSTEMS Abdomen: No bloating, early satiety, indigestion, or increased flatulence. No abdominal pain, nausea, vomiting, diarrhea, or constipation. Bladder: No dysuria, gross hematuria, urinary frequency, urinary urgency, or incontinence. Expanded ROS: N/A Allergies and current medication updated:Yes SENSITIVE EXAM: The sensitive examination was discussed with the Patient or Patient's Authorized Claims Agent Right Of Way. As applicable, any other physician, advance practice provider, medical student, or other health professional student that will be observing or involved in the sensitive examination for educational or training purposes was discussed with the Patient or Authorized Claims Agent Right Of Way. The Patient or Authorized Claims Agent Right Of Way has agreed to proceed with the sensitive examination. (Sensitive examination includes inspection and/or palpation of the breasts, pelvis, prostate and anorectal regions). EXAM: BP 122/64 Wt 0 lb (0.0kg) LMP 03/27/2024 GENERAL: pleasant, female in no apparent distress HEENT: Normocephalic, atraumatic, mucus membranes moist, no lesions, and +white coating on posterior tongue CHEST: Normal inspiratory effort PELVIC: external genitalia normal, normal [place]tholin's glands, urethra, [place]'s glands, no vulvar lesions, no cervical lesions, good vaginal support, physiologic discharge present, normal appearing perineal body and perianal region NEURO: alert and oriented x3,exam grossly non-focal EXTREMITIES: normal ASSESSMENT/PLAN: 1. Vaginal discharge - ICD9: 623.5, ICD10: N89.8 (primary diagnosis) - TEZ/TRICHOMONAS NAAT - BACTERIAL VAGINOSIS NAAT 2. Oral thrush - ICD9: 112.0, ICD10: B37.0 Nystatin ordered Will notify patient of test results. Lena Olguin APRN.ENGINE TEST CELL TECHNICIAN Medical Decision Making: Problems: Low: Acute, uncomplicated illness or injury Data: Unique test(s) ordered: 2 Risk: Moderate: Drug management Medical Decision Making Level: 3 - Low documented in this encounter [facility] 04-13-2024 Note HNO ID: [id number] Author: NARA OCAMPO LISW Service: ? Author Type: Hvac Mechanic Type: Progress Notes Filed: 04/13/2024 16:20 Note Text: No show [facility] 04-13-2024 History of Present illness Narrative No show documented in this encounter [facility] 04-06-2024 Telephone encounter Note Pt called and is notified of providers message. Pt voices understanding. Nayla Balbuena RN [facility] 04-06-2024 Miscellaneous Notes Pt called and is notified of providers message. Pt voices understanding. Nayla Balbuena RN Please let he know, I sent another rx for diflucan. Regards, Gaby Solis MD Pt called in and reports she was seen by Antoinette Anthony on 03/25/24, and she ordered her Diflucan. Pt had been on 30 days worth of antibiotics from the dentist. Pt states she doesn't think the yeast went away completely, and now it has come back with a vengeance. Pt states she has thick white vaginal discharge and her tongue feels thick. She is asking if the provider would call in some more Diflucan or something else in for her. Per Pt she does not like the swish and swallow and forgets to take things when scheduled through out the day. Please call and advise. documented in this encounter [facility] 04-06-2024 Telephone encounter Note Please let he know, I sent another rx for diflucan. Regards, Gaby Solis MD [facility] 04-05-2024 Telephone encounter Note Pt called in and reports she was seen by Antoinette Anthony on 03/25/24, and she ordered her Diflucan. Pt had been on 30 days worth of antibiotics from the dentist. Pt states she doesn't think the yeast went away completely, and now it has come back with a vengeance. Pt states she has thick white vaginal discharge and her tongue feels thick. She is asking if the provider would call in some more Diflucan or something else in for her. Per Pt she does not like the swish and swallow and forgets to take things when scheduled through out the day. Please call and advise. [facility] 03-30-2024 Note HNO ID: [id number] Author: SHANTA GREENE LPN Service: ? Author Type: LICENSED NURSE Type: Progress Notes Filed: 03/30/2024 10:12 Note Text: Patient presented to complete PPD testing. 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 Today's testing was to be for another job she will also be starting. Recommended that she continue with testing on and have them give her printed results that can be attached to any paperwork for supplemental employment. Verbalized understanding. Shanta Greene LPN [facility] 03-30-2024 History of Present illness Narrative Patient presented to complete PPD testing. 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 Today's testing was to be for another job she will also be starting. Recommended that she continue with testing on and have them give her printed results that can be attached to any paperwork for supplemental employment. Verbalized understanding. Shanta Greene LPN documented in this encounter [facility] 03-25-2024 Note HNO ID: [id number] Author: ANTOINETTE ANTHONY APRN.ENGINE TEST CELL TECHNICIAN Service: ? Author Type: Nurse Practitioner Type: Progress Notes Filed: 03/25/2024 09:31 Note Text: CC: Patient presents with: Physical: Physical, follow up with medication for adderall HPI Johanna Carver is a 38 year old female who presents today for physical. Had a tooth infection previously and was on clindamycin for a few months. Had the tooth fixed weeks ago and feels great but states her tongue feels thick and things are tasting weird and like metal. Also has noticed her tongue has been white. Does not like swish and swallow as she forgets to take things when scheduled throughout the day. ADD: Controlled well with current treatment and able to focus throughout work and get tasks completed efficiently. Has been on current dose since last year and tolerating well. REVIEW OF SYSTEMS General: no fevers, no chills, no night sweats, no recurrent infections, no change in appetite, no change in energy, and no significant changes in weight Respiratory: no cough, no wheezing, no shortness of breath, no hemoptysis Cardiovascular: no chest pain, no chest pressure, no palpitations, and no swelling GI: No nausea, vomiting, or diarrhea : No history of dysuria, frequency or incontinence Endocrine: no fatigue, no weight gain, no weight loss, no polyuria, no polyphagia, and no polydipsia Neurologic: No headache, weakness, dizziness, memory loss, syncope. PAST MEDICAL HISTORY Diagnosis Date ADHD (attention deficit hyperactivity disorder) Adjustment disorder with depressed mood was previously on Paxil/effexor, self ky'ed for weight gain. Anemia Concussion 2016 Depressive disorder, not elsewhere classified Environmental and seasonal allergies Eosinophilic esophagitis 2016 Esophageal dysmotility 02/27/2018 Foot fracture, left 2016 TBI (traumatic brain injury) ([facility]) Unspecified symptom associated with female genital organs Pain in the vulvar area PAST SURGICAL HISTORY Procedure Laterality Date CORRECT BUNION,SIMPLE 2006 right EGD 1 or 2 times yearly REDUCTION OF LARGE BREAST 10/05/2008 Bilateral, uncomplciated RPR 1ST INGUN HRNA FULL TERM INFT <6 MO RDC ALLERGIES Penicillins and Sulfa (Sulfonamide Antibiotics) MEDICATIONS amphetamine-dextroamphetamine XR (ADDERALL XR) 15 mg capsule Take 1 capsule by mouth once daily for 30 days. Patient should start on March 12, 2024. baclofen 10 mg tablet 1 tab bid prn for spasms spironolactone (ALDACTONE) 25 mg tablet Take 25 mg by mouth once daily. Clindamycin Phosphate (CLEOCIN T) 1 % lotion Apply once a day as a spot treatment to the face fluticasone (FLONASE) 50 mcg/actuation nasal spray Use 2 Sprays in each nostril once daily. Rinse mouth after use. adapalene-benzoyl peroxide 0.3-2.5 % Apply to affected area three times a week. ibuprofen (MOTRIN ORAL) Take 400 mg by mouth as needed. FAMILY HISTORY Problem Relation Age of Onset Psychiatry Mother post depression No Known Problems Father No Known Problems Sister No Known Problems Sister Ischemic Heart Disease Maternal Grandfather Heart Paternal Grandmother Pacemaker Cancer Paternal Grandmother Ischemic Heart Disease Paternal Grandfather Social History Tobacco Use Smoking status: Former Current packs/day: 0.00 Types: Cigarettes Quit date: 12/25/2016 Years since quittin.2 Smokeless tobacco: Never Tobacco comments: A few cigarettes per week. Vaping Use Vaping status: Never Used Substance Use Topics Alcohol use: Not Currently Comment: seldom Drug use: Never PHYSICAL EXAM BP 125/90 (BP Site: Left Arm) Pulse 98 Temp 36.3 ?C (97.3 ?F) Ht 163 cm (5' 4.17) Wt 59.4 kg (131 lb) LMP 11/25/2023 (Within Weeks) SpO2 100% BMI 22.37 kg/m? General Appearance: well appearing, in no acute distress, alert Pysch: mood and affect broad and appropriate Eyes: conjunctiva pink and moist, no icterus, sclera white, non-injected Neck: Thyroid normal size and symmetric without palpable nodules, Neck supple, No adenopathy Oropharynx: tongue with white coating Lymph nodes: No cervical lymphadenopathy and No supraclavicular lymphadenopathy Lungs: Lungs clear to auscultation. No wheezing, rhonchi, rales. Heart: RRR without murmur, gallop, or rubs. No ectopy Abdomen: Abdomen soft, non-tender. Bowel sounds normal. No masses, organomegaly BUE Extremities: No deformities, edema, skin discoloration, clubbing or cyanosis. Good capillary refill. Neurological: Gait normal. Reflexes normal and symmetric. Sensation intact., speech normal, mental status intact, muscle tone normal, muscle strength normal Health maintenance reviewed with patient: Influenza Vaccine(1) due on 10/26/2023 Covid-19 Vaccine(2023- season) due on 10/26/2023 DTaP,Tdap,Td Vaccine(8 - Td or Tdap) due on 08/24/2025 Cervical Cancer Screening due on 01/03/2028 Hepatitis B Vaccine Completed HPV Vaccine (more content not included)... [facility] 03-25-2024 History of Present illness Narrative CC: Patient presents with: Physical: Physical, follow up with medication for adderall HPI Johanna Carver is a 38 year old female who presents today for physical. Had a tooth infection previously and was on clindamycin for a few months. Had the tooth fixed weeks ago and feels great but states her tongue feels thick and things are tasting weird and like metal. Also has noticed her tongue has been white. Does not like swish and swallow as she forgets to take things when scheduled throughout the day. ADD: Controlled well with current treatment and able to focus throughout work and get tasks completed efficiently. Has been on current dose since last year and tolerating well. REVIEW OF SYSTEMS General: no fevers, no chills, no night sweats, no recurrent infections, no change in appetite, no change in energy, and no significant changes in weight Respiratory: no cough, no wheezing, no shortness of breath, no hemoptysis Cardiovascular: no chest pain, no chest pressure, no palpitations, and no swelling GI: No nausea, vomiting, or diarrhea : No history of dysuria, frequency or incontinence Endocrine: no fatigue, no weight gain, no weight loss, no polyuria, no polyphagia, and no polydipsia Neurologic: No headache, weakness, dizziness, memory loss, syncope. PAST MEDICAL HISTORY Diagnosis Date ADHD (attention deficit hyperactivity disorder) Adjustment disorder with depressed mood was previously on Paxil/effexor, self ky'ed for weight gain. Anemia Concussion 2016 Depressive disorder, not elsewhere classified Environmental and seasonal allergies Eosinophilic esophagitis 2016 Esophageal dysmotility 02/27/2018 Foot fracture, left 2016 TBI (traumatic brain injury) ([facility]) Unspecified symptom associated with female genital organs Pain in the vulvar area PAST SURGICAL HISTORY Procedure Laterality Date CORRECT BUNION,SIMPLE 2006 right EGD 1 or 2 times yearly REDUCTION OF LARGE BREAST 10/05/2008 Bilateral, uncomplciated RPR 1ST INGUN HRNA FULL TERM INFT <6 MO RDC ALLERGIES Penicillins and Sulfa (Sulfonamide Antibiotics) MEDICATIONS amphetamine-dextroamphetamine XR (ADDERALL XR) 15 mg capsule Take 1 capsule by mouth once daily for 30 days. Patient should start on March 12, 2024. baclofen 10 mg tablet 1 tab bid prn for spasms spironolactone (ALDACTONE) 25 mg tablet Take 25 mg by mouth once daily. Clindamycin Phosphate (CLEOCIN T) 1 % lotion Apply once a day as a spot treatment to the face fluticasone (FLONASE) 50 mcg/actuation nasal spray Use 2 Sprays in each nostril once daily. Rinse mouth after use. adapalene-benzoyl peroxide 0.3-2.5 % Apply to affected area three times a week. ibuprofen (MOTRIN ORAL) Take 400 mg by mouth as needed. FAMILY HISTORY Problem Relation Age of Onset Psychiatry Mother post depression No Known Problems Father No Known Problems Sister No Known Problems Sister Ischemic Heart Disease Maternal Grandfather Heart Paternal Grandmother Pacemaker Cancer Paternal Grandmother Ischemic Heart Disease Paternal Grandfather Social History Tobacco Use Smoking status: Former Current packs/day: 0.00 Types: Cigarettes Quit date: 12/25/2016 Years since quittin.2 Smokeless tobacco: Never Tobacco comments: A few cigarettes per week. Vaping Use Vaping status: Never Used Substance Use Topics Alcohol use: Not Currently Comment: seldom Drug use: Never PHYSICAL EXAM BP 125/90 (BP Site: Left Arm) Pulse 98 Temp 36.3 C (97.3 F) Ht 163 cm (5' 4.17) Wt 59.4 kg (131 lb) LMP 11/25/2023 (Within Weeks) SpO2 100% BMI 22.37 kg/m General Appearance: well appearing, in no acute distress, alert Pysch: mood and affect broad and appropriate Eyes: conjunctiva pink and moist, no icterus, sclera white, non-injected Neck: Thyroid normal size and symmetric without palpable nodules, Neck supple, No adenopathy Oropharynx: tongue with white coating Lymph nodes: No cervical lymphadenopathy and No supraclavicular lymphadenopathy Lungs: Lungs clear to auscultation. No wheezing, rhonchi, rales. Heart: RRR without murmur, gallop, or rubs. No ectopy Abdomen: Abdomen soft, non-tender. Bowel sounds normal. No masses, organomegaly BUE Extremities: No deformities, edema, skin discoloration, clubbing or cyanosis. Good capillary refill. Neurological: Gait normal. Reflexes normal and symmetric. Sensation intact., speech normal, mental status intact, muscle tone normal, muscle strength normal Health maintenance reviewed with patient: Influenza Vaccine(1) due on 10/26/2023 Covid-19 Vaccine( season) due on 10/26/2023 DTaP,Tdap,Td Vaccine(8 - Td or Tdap) due on 08/24/2025 Cervical Cancer Screening due on 01/03/2028 Hepatitis B Vaccine Completed HPV Vaccine Completed Hepatitis C Screening Completed HIV Screening Completed DATA REVIEWED: No new labs ASSESSMENT/PLAN: 1. Annual physical exam - ICD9: V70.0, ICD10: Z00.00 (primary diagnosis) - forms filled out for new job - Counseled on healthy diet and regular exercise - Counseled on alcohol intake and health risks - Follow up for annual exam in one year - COMPLETE BLOOD COUNT - COMPREHENSIVE METABOLIC PANEL 2. Attention deficit hyperactivity disorder (ADHD), predominantly inattentive type - ICD9: 314.00, ICD10: F90.0 Controlled well with current treatment 3. Thrush - ICD9: 112.0, ICD10: B37.0 Diflucan as ordered With her attention issues, has had issues in the past with remembering the multiple doses of troches and swish and swallows. Will do 7 days of diflucan Follow up if no improvement,. 4. Vitamin D deficiency - ICD9: 268.9, ICD10: E55.9 - VITAMIN D 25 HYDROXY 5. Visit for TB skin test - ICD9: V74.1, ICD10: Z11.1 Needed for new job - PPD (TB INTRADERMAL 52868) B/O Prescription instructions reviewed with patient as applicable. Potential red flag symptoms discussed with the patient. Reviewed appropriate action plan to take if red flag symptoms occur. Patient agreeable to treatment plan. Antoinette Anthoyn APRN.CNP documented in this encounter [facility] 03-12-2024 Telephone encounter Note Patient notified. Beverly Foreman RN [facility] 03-12-2024 Miscellaneous Notes Patient notified. Beverly Foreman RN Left message for patient to call office. Angeles Crowell RN I believe it is probably a false positive result just as it has been in the past. Especially since all the titers are negative. If she does not want to repeat the testing I am okay with that but if she decides she wants to the order is in the system. Lena Olguin APRN.FLORI Patient notified. She states that this same thing has happened multiple times in the past years. Asking if she should be concerned or what could be causing that? She has previously had a rash she was concerned about that has now resolved. She last discussed this with you on 09/19/23 appointment. Angeles Crowell RN Please let the patient know that her STD testing was negative with the exception for a reactive syphilis result. All titers are negative, which this could be a false reading and I would like her to repeat the blood work in 4 weeks. Lena Olguin APRN.CNP documented in this encounter [facility] 03-11-2024 Telephone encounter Note Left message for patient to call office. Angeles Crowell RN [facility] 03-11-2024 Telephone encounter Note I believe it is probably a false positive result just as it has been in the past. Especially since all the titers are negative. If she does not want to repeat the testing I am okay with that but if she decides she wants to the order is in the system. Lena Olguin APRN.CNP [facility] 03-11-2024 Telephone encounter Note Patient notified. She states that this same thing has happened multiple times in the past years. Asking if she should be concerned or what could be causing that? She has previously had a rash she was concerned about that has now resolved. She last discussed this with you on 09/19/23 appointment. Angeles Crowell RN [facility] 03-11-2024 Telephone encounter Note Please let the patient know that her STD testing was negative with the exception for a reactive syphilis result. All titers are negative, which this could be a false reading and I would like her to repeat the blood work in 4 weeks. Lena Olguin APRN.CNP [facility] 03-11-2024 Telephone encounter Note Noted Antoinette Anthony APRN.CNP [facility] 03-11-2024 Miscellaneous Notes Noted Antoinette Anthony APRN.CNP Pt called and is notified of providers message and instructions. Pt voices understanding. She wanted to let provider that she had a tooth infection and she has been on an antibiotic for the past 3 months. Nayla Balbuena RN We can discuss this at her upcoming appointment as other lab work may be indicated. Thank you Antoinette Anthony APRN.CNP Pt asking if Antoinette can order a vit D lab for her. States she feels like it is low because her hair is really dry and she has no energy. Pended. Reports she had stopped taking vit D because her lab was high a few months ago. Reports she does take a MVI daily if she remembers it. documented in this encounter [facility] 03-10-2024 Telephone encounter Note Pt called and is notified of providers message and instructions. Pt voices understanding. She wanted to let provider that she had a tooth infection and she has been on an antibiotic for the past 3 months. Nayla Balbuena RN [facility] 03-10-2024 Telephone encounter Note We can discuss this at her upcoming appointment as other lab work may be indicated. Thank you Antoinette Anthony APRN.CNP [facility] 03-09-2024 Telephone encounter Note Pt asking if Antoinette can order a vit D lab for her. States she feels like it is low because her hair is really dry and she has no energy. Pended. Reports she had stopped taking vit D because her lab was high a few months ago. Reports she does take a MVI daily if she remembers it. [facility] 03-05-2024 Telephone encounter Note Letter sent Antoinette Anthony APRN.CNP [facility] 03-05-2024 Miscellaneous Notes Letter sent Antoinette Anthony APRN.CNP Patient calling to ask Antoinette Anthony CNP for a letter request. Patient reports she was employed by the [employer] and was released from employment due to being late. Patient states the reason she was late was due to not having her medications for a period of time due to insurance coverage reasons along with mandatory overtime. Patient asking if provider would write a letter that she could submit to her past employer stating that patient has diagnosis requiring certain medication (Adderall) and if she does not take the medication it can cause issues with memory, attention, focus and punctuality. Pt would like letter to include her diagnosis as well. Patient asking if letter can be sent to her via [employer]. No call back needed to patient if provider agreeable to complete this request. Santa Monson RN documented in this encounter [facility] 03-04-2024 Telephone encounter Note Patient calling to ask Antoinette Anthony CNP for a letter request. Patient reports she was employed by the [employer] and was released from employment due to being late. Patient states the reason she was late was due to not having her medications for a period of time due to insurance coverage reasons along with mandatory overtime. Patient asking if provider would write a letter that she could submit to her past employer stating that patient has diagnosis requiring certain medication (Adderall) and if she does not take the medication it can cause issues with memory, attention, focus and punctuality. Pt would like letter to include her diagnosis as well. Patient asking if letter can be sent to her via [employer]. No call back needed to patient if provider agreeable to complete this request. Santa Monson RN [facility] 02-04-2024 Note HNO ID: [id number] Author: NARA OCAMPO LISW Service: ? Author Type: Hvac Mechanic Type: Progress Notes Filed: 02/04/2024 09:48 Note Text: No show [facility] 02-04-2024 History of Present illness Narrative No show documented in this encounter [facility] 01-14-2024 Telephone encounter Note Spoke with pt and information listed below given. Pt verbalizes understanding. Crystal Person LPN [facility] 01-14-2024 Miscellaneous Notes Spoke with pt and information listed below given. Pt verbalizes understanding. Crystal Person LPN Order placed Thank you Antoinette Anthony APRN.FLORI Pt requesting orders to get a TB blood draw instead of 2 day TB test. Please advise pt when orders are in and she will come into the lab and get this done. Crystal Person LPN documented in this encounter [facility] 01-14-2024 Telephone encounter Note Order placed Thank you Antoinette Anthony APRN.FLORI [facility] 01-14-2024 Telephone encounter Note Pt requesting orders to get a TB blood draw instead of 2 day TB test. Please advise pt when orders are in and she will come into the lab and get this done. Crystal Person LPN [facility] 01-05-2024 Note HNO ID: [id number] Author: LENA OLGUIN APRN.CNP Service: ? Author Type: Nurse Practitioner Type: Progress Notes Filed: 01/05/2024 12:10 Note Text: Patient declined paperhangerErika Spencer is a 38 year old who presents for an annual gynecologic exam without complaints. Menses: cycles every 30 days and 4-5 days of flow. Contraception: condoms, not currently HPV vaccine: Yes Last Pap: 01/13/2023 normal HPV: 01/07/2023 negative History of abnormal pap: Yes Last mammogram: 2018, additional views , neg ultrasound. Sexually active: not currently OB History T0 L2 SAB0 IAB0 Ectopic0 Multiple0 Live Births0 Bed Manager History LMP: 08/16/2023 (Within Weeks), Having periods Age at Menarche: Age at First : Age at Menopause: Bed Manager History Comments: Sexual Activity: Yes; Male Contraception: Condom PAST MEDICAL HISTORY Diagnosis Date ADHD (attention deficit hyperactivity disorder) Adjustment disorder with depressed mood was previously on Paxil/effexor, self dc'ed for weight gain. Anemia Concussion 2016 Depressive disorder, not elsewhere classified Environmental and seasonal allergies Eosinophilic esophagitis 2016 Esophageal dysmotility 02/27/2018 Foot fracture, left 2016 TBI (traumatic brain injury) (HCC) Unspecified symptom associated with female genital organs Pain in the vulvar area PAST SURGICAL HISTORY Procedure Laterality Date CORRECT BUNION,SIMPLE 2006 right EGD 1 or 2 times yearly REDUCTION OF LARGE BREAST 10/05/2008 Bilateral, uncomplciated RPR 1ST INGUN HRNA FULL TERM INFT <6 MO RDC FAMILY HISTORY Problem Relation Age of Onset Psychiatry Mother post depression Ischemic Heart Disease Maternal Grandfather Heart Paternal Grandmother Pacemaker Cancer Paternal Grandmother Ischemic Heart Disease Paternal Grandfather SOCIAL HISTORY Social History Tobacco Use Smoking status: Former Current packs/day: 0.00 Types: Cigarettes Quit date: 12/25/2016 Years since quittin.0 Smokeless tobacco: Never Tobacco comments: A few cigarettes per week. Vaping Use Vaping status: Never Used Substance Use Topics Alcohol use: Not Currently Comment: seldom Drug use: Never REVIEW OF SYSTEMS Abdomen: No abdominal pain, nausea, vomiting, diarrhea, or constipation. No bloating, early satiety, indigestion, or increased flatulence. Bladder: No dysuria, gross hematuria, urinary frequency, urinary urgency, or incontinence. Breast: No breast lumps, nipple d/c, overlying skin changes, redness or skin retraction. Allergies and current medication updated:Yes SENSITIVE EXAM: The sensitive examination was discussed with the Patient or Patient's Authorized Claims Agent Right Of Way. As applicable, any other physician, advance practice provider, medical student, or other health professional student that will be observing or involved in the sensitive examination for educational or training purposes was discussed with the Patient or Authorized Claims Agent Right Of Way. The Patient or Authorized Claims Agent Right Of Way has agreed to proceed with the sensitive examination. (Sensitive examination includes inspection and/or palpation of the breasts, pelvis, prostate and anorectal regions). EXAM: LMP 08/16/2023 GENERAL: pleasant, female in no apparent distress HEENT: Normocephalic, atraumatic, mucus membranes moist, and no lesions NECK: Supple, full range of motion, no adenopathy, and thyroid normal DERMATOLOGY: Normal, without lesions, non-icteric, and non-hirsute BREAST: soft, non-tender, symmetric, no dominant mass, normal nipple-areolar complex, no lymphadenopathy, and no nipple discharge CHEST: Normal inspiratory effort ABDOMEN: soft, non-tender, and no masses PELVIC: external genitalia normal, normal Bartholin's glands, urethra, [place]'s glands, no vulvar lesions, no cervical lesions, good vaginal support, physiologic discharge present, normal appearing perineal body and perianal region BIMANUAL: uterus normal size, shape and consistency, no adnexal masses, and non-tender NEURO: alert and oriented x3,exam grossly non-focal EXTREMITIES: normal ASSESSMENT/PLAN: 1) Health maintenance: Pap/HPV up to date. Mammogram starting age 40. Nutrition, exercise and routine health maintenance exams reviewed. Calcium/Vitamin D supplementation information provided. 2) Contraception: none. Contraceptive options reviewed and information provided. 3) STD screening: Accepted STD check for Gonorrhea and Chlamydia. 4) Follow up one year or sooner as needed 5) BV/yeast/trich ordered Lena Olguin APRN.[facility] 01-05-2024 History of Present illness Narrative Patient declined paperhangerErika Spencer is a 38 year old who presents for an annual gynecologic exam without complaints. Menses: cycles every 30 days and 4-5 days of flow. Contraception: condoms, not currently HPV vaccine: Yes Last Pap: 01/13/2023 normal HPV: 01/07/2023 negative History of abnormal pap: Yes Last mammogram: 2018, additional views , neg ultrasound. Sexually active: not currently OB History T0 L2 SAB0 IAB0 Ectopic0 Multiple0 Live Births0 Bed Manager History LMP: 08/16/2023 (Within Weeks), Having periods Age at Menarche: Age at First : Age at Menopause: Bed Manager History Comments: Sexual Activity: Yes; Male Contraception: Condom PAST MEDICAL HISTORY Diagnosis Date ADHD (attention deficit hyperactivity disorder) Adjustment disorder with depressed mood was previously on Paxil/effexor, self dc'ed for weight gain. Anemia Concussion 2016 Depressive disorder, not elsewhere classified Environmental and seasonal allergies Eosinophilic esophagitis 2016 Esophageal dysmotility 02/27/2018 Foot fracture, left 2016 TBI (traumatic brain injury) (HCC) Unspecified symptom associated with female genital organs Pain in the vulvar area PAST SURGICAL HISTORY Procedure Laterality Date CORRECT BUNION,SIMPLE 2006 right EGD 1 or 2 times yearly REDUCTION OF LARGE BREAST 10/05/2008 Bilateral, uncomplciated RPR 1ST INGUN HRNA FULL TERM INFT <6 MO RDC FAMILY HISTORY Problem Relation Age of Onset Psychiatry Mother post depression Ischemic Heart Disease Maternal Grandfather Heart Paternal Grandmother Pacemaker Cancer Paternal Grandmother Ischemic Heart Disease Paternal Grandfather SOCIAL HISTORY Social History Tobacco Use Smoking status: Former Current packs/day: 0.00 Types: Cigarettes Quit date: 12/25/2016 Years since quittin.0 Smokeless tobacco: Never Tobacco comments: A few cigarettes per week. Vaping Use Vaping status: Never Used Substance Use Topics Alcohol use: Not Currently Comment: seldom Drug use: Never REVIEW OF SYSTEMS Abdomen: No abdominal pain, nausea, vomiting, diarrhea, or constipation. No bloating, early satiety, indigestion, or increased flatulence. Bladder: No dysuria, gross hematuria, urinary frequency, urinary urgency, or incontinence. Breast: No breast lumps, nipple d/c, overlying skin changes, redness or skin retraction. Allergies and current medication updated:Yes SENSITIVE EXAM: The sensitive examination was discussed with the Patient or Patient's Authorized Claims Agent Right Of Way. As applicable, any other physician, advance practice provider, medical student, or other health professional student that will be observing or involved in the sensitive examination for educational or training purposes was discussed with the Patient or Authorized Claims Agent Right Of Way. The Patient or Authorized Claims Agent Right Of Way has agreed to proceed with the sensitive examination. (Sensitive examination includes inspection and/or palpation of the breasts, pelvis, prostate and anorectal regions). EXAM: LMP 08/16/2023 GENERAL: pleasant, female in no apparent distress HEENT: Normocephalic, atraumatic, mucus membranes moist, and no lesions NECK: Supple, full range of motion, no adenopathy, and thyroid normal DERMATOLOGY: Normal, without lesions, non-icteric, and non-hirsute BREAST: soft, non-tender, symmetric, no dominant mass, normal nipple-areolar complex, no lymphadenopathy, and no nipple discharge CHEST: Normal inspiratory effort ABDOMEN: soft, non-tender, and no masses PELVIC: external genitalia normal, normal Bartholin's glands, urethra, [place]'s glands, no vulvar lesions, no cervical lesions, good vaginal support, physiologic discharge present, normal appearing perineal body and perianal region BIMANUAL: uterus normal size, shape and consistency, no adnexal masses, and non-tender NEURO: alert and oriented x3,exam grossly non-focal EXTREMITIES: normal ASSESSMENT/PLAN: 1) Health maintenance: Pap/HPV up to date. Mammogram starting age 40. Nutrition, exercise and routine health maintenance exams reviewed. Calcium/Vitamin D supplementation information provided. 2) Contraception: none. Contraceptive options reviewed and information provided. 3) STD screening: Accepted STD check for Gonorrhea and Chlamydia. 4) Follow up one year or sooner as needed 5) BV/yeast/trich ordered Lena Olguin APRN.FLORI documented in this encounter [facility] 12-25-2023 Note HNO ID: [id number] Author: ANTOINETTE ANTHONY APRN.FLORI Service: ? Author Type: Nurse Practitioner Type: Progress Notes Filed: 12/25/2023 15:33 Note Text: CC: Patient presents with: Recheck: 3 month follow up HPI Johanna Carver is a 38 year old female who presents today for ADD follow up. Feels well controlled on current treatment and able to concentrate full throughout the day and able to complete tasks. 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 with shift work Alcohol use: does not drink any alcohol Drug use: No Suicidal Thoughts: No suicidal ideation, intent or plan REVIEW OF SYSTEMS General: no fevers, no chills, no night sweats, no recurrent infections, no change in appetite, no change in energy, and no significant changes in weight Respiratory: no cough, no wheezing, no shortness of breath, no hemoptysis Cardiovascular: no chest pain, no chest pressure, no palpitations, and no swelling PAST MEDICAL HISTORY Diagnosis Date ADHD (attention deficit hyperactivity disorder) Adjustment disorder with depressed mood was previously on Paxil/effexor, self dc'ed for weight gain. Anemia Concussion 2016 Depressive disorder, not elsewhere classified Environmental and seasonal allergies Eosinophilic esophagitis 2016 Esophageal dysmotility 02/27/2018 Foot fracture, left 2016 TBI (traumatic brain injury) (HCC) Unspecified symptom associated with female genital organs Pain in the vulvar area PAST SURGICAL HISTORY Procedure Laterality Date CORRECT BUNION,SIMPLE 2006 right EGD 1 or 2 times yearly REDUCTION OF LARGE BREAST 10/05/2008 Bilateral, uncomplciated RPR 1ST INGUN HRNA FULL TERM INFT <6 MO RDC ALLERGIES Penicillins and Sulfa (Sulfonamide Antibiotics) MEDICATIONS fluconazole (DIFLUCAN) 150 mg tablet Take 1 tablet today, then a 2nd tablet in 72 hours, and 3rd tablet in another 72 hours. Collagenase powd triamcinolone (KENALOG) 0.025 % cream Apply to affected area two times a day. amphetamine-dextroamphetamine XR (ADDERALL XR) 15 mg capsule Take 1 capsule by mouth once daily for 30 days. amphetamine-dextroamphetamine XR (ADDERALL XR) 15 mg capsule Take 1 capsule by mouth once daily for 30 days. Do not start before October 05, 2023. amphetamine-dextroamphetamine XR (ADDERALL XR) 15 mg capsule Take 1 capsule by mouth once daily for 30 days. Do not start before November 04, 2023. cholecalciferol, Vitamin D3, (VITAMIN D3) 1,250 mcg (50,000 unit) cap capsule Take 1 capsule by mouth one time a week. baclofen 10 mg tablet 1 tab bid prn for spasms spironolactone (ALDACTONE) 25 mg tablet Take 25 mg by mouth once daily. Clindamycin Phosphate (CLEOCIN T) 1 % lotion Apply once a day as a spot treatment to the face fluticasone (FLONASE) 50 mcg/actuation nasal spray Use 2 Sprays in each nostril once daily. Rinse mouth after use. adapalene-benzoyl peroxide 0.3-2.5 % Apply to affected area three times a week. ibuprofen (MOTRIN ORAL) Take 400 mg by mouth as needed. FAMILY HISTORY Problem Relation Age of Onset Psychiatry Mother post depression Ischemic Heart Disease Maternal Grandfather Heart Paternal Grandmother Pacemaker Cancer Paternal Grandmother Ischemic Heart Disease Paternal Grandfather Social History Tobacco Use Smoking status: Former Current packs/day: 0.00 Types: Cigarettes Quit date: 12/25/2016 Years since quittin.0 Smokeless tobacco: Never Tobacco comments: A few cigarettes per week. Vaping Use Vaping status: Never Used Substance Use Topics Alcohol use: Not Currently Comment: seldom Drug use: Never PHYSICAL EXAM BP 118/78 Pulse 99 Resp 16 LMP 08/16/2023 (Within Weeks) SpO2 99% General Appearance: well appearing, in no acute distress, alert Pysch: mood and affect broad and appropriate Eyes: conjunctiva pink and moist, no icterus, sclera white, non-injected Lungs: Lungs clear to auscultation. No wheezing, rhonchi, rales. Heart: RRR without murmur, gallop, or rubs. No ectopy Health maintenance reviewed with patient: Influenza Vaccine(1) due on 10/26/2023 Covid-19 Vaccine(2023- season) due on 10/26/2023 DTaP,Tdap,Td Vaccine(8 - Td or Tdap) due on 08/24/2025 Cervical Cancer Screening due on 01/03/2028 Hepatitis B Vaccine Completed HPV Vaccine Completed Hepatitis C Screening Completed HIV Screening Completed DATA REVIEWED: No new labs ASSESSMENT/PLAN: 1. Attention deficit hyperactivity disorder (ADHD), predominantly inattentive type - ICD9: 314.00, ICD10: F90.0 Controlled well with current treatment PDMP website checked and validated. All prescriptions have been APPROPRIATELY filled. No suspicious activity was identified. 12/25/2023 by Antoinette Anthony APRN.ENGINE TEST CELL TECHNICIAN - DEXTROAMPHETAMINE-AMPHETAMINE ER 15 MG 24HR CAPSULE,EXTEND RELEASE - DEXTROAMPHETAMINE-AMPHETAMINE ER 15 MG 24HR CAPSULE,EXTEND RELEASE - DEXTROAMPHETAMINE-AMPHETAMINE ER 15 MG 24HR CAPSULE,EXTEND RELEASE Prescription (more content not included)... [facility] 12-25-2023 History of Present illness Narrative CC: Patient presents with: Recheck: 3 month follow up HPI Johanna Carver is a 38 year old female who presents today for ADD follow up. Feels well controlled on current treatment and able to concentrate full throughout the day and able to complete tasks. 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 with shift work Alcohol use: does not drink any alcohol Drug use: No Suicidal Thoughts: No suicidal ideation, intent or plan REVIEW OF SYSTEMS General: no fevers, no chills, no night sweats, no recurrent infections, no change in appetite, no change in energy, and no significant changes in weight Respiratory: no cough, no wheezing, no shortness of breath, no hemoptysis Cardiovascular: no chest pain, no chest pressure, no palpitations, and no swelling PAST MEDICAL HISTORY Diagnosis Date ADHD (attention deficit hyperactivity disorder) Adjustment disorder with depressed mood was previously on Paxil/effexor, [facility]'ed for weight gain. Anemia Concussion 2016 Depressive disorder, not elsewhere classified Environmental and seasonal allergies Eosinophilic esophagitis 2016 Esophageal dysmotility 02/27/2018 Foot fracture, left 2016 TBI (traumatic brain injury) ([facility]) Unspecified symptom associated with female genital organs Pain in the vulvar area PAST SURGICAL HISTORY Procedure Laterality Date CORRECT BUNION,SIMPLE 2006 right EGD 1 or 2 times yearly REDUCTION OF LARGE BREAST 10/05/2008 Bilateral, uncomplciated RPR 1ST INGUN HRNA FULL TERM INFT <6 MO RDC ALLERGIES Penicillins and Sulfa (Sulfonamide Antibiotics) MEDICATIONS fluconazole (DIFLUCAN) 150 mg tablet Take 1 tablet today, then a 2nd tablet in 72 hours, and 3rd tablet in another 72 hours. Collagenase powd triamcinolone (KENALOG) 0.025 % cream Apply to affected area two times a day. amphetamine-dextroamphetamine XR (ADDERALL XR) 15 mg capsule Take 1 capsule by mouth once daily for 30 days. amphetamine-dextroamphetamine XR (ADDERALL XR) 15 mg capsule Take 1 capsule by mouth once daily for 30 days. Do not start before October 05, 2023. amphetamine-dextroamphetamine XR (ADDERALL XR) 15 mg capsule Take 1 capsule by mouth once daily for 30 days. Do not start before November 04, 2023. cholecalciferol, Vitamin D3, (VITAMIN D3) 1,250 mcg (50,000 unit) cap capsule Take 1 capsule by mouth one time a week. baclofen 10 mg tablet 1 tab bid prn for spasms spironolactone (ALDACTONE) 25 mg tablet Take 25 mg by mouth once daily. Clindamycin Phosphate (CLEOCIN T) 1 % lotion Apply once a day as a spot treatment to the face fluticasone (FLONASE) 50 mcg/actuation nasal spray Use 2 Sprays in each nostril once daily. Rinse mouth after use. adapalene-benzoyl peroxide 0.3-2.5 % Apply to affected area three times a week. ibuprofen (MOTRIN ORAL) Take 400 mg by mouth as needed. FAMILY HISTORY Problem Relation Age of Onset Psychiatry Mother post depression Ischemic Heart Disease Maternal Grandfather Heart Paternal Grandmother Pacemaker Cancer Paternal Grandmother Ischemic Heart Disease Paternal Grandfather Social History Tobacco Use Smoking status: Former Current packs/day: 0.00 Types: Cigarettes Quit date: 12/25/2016 Years since quittin.0 Smokeless tobacco: Never Tobacco comments: A few cigarettes per week. Vaping Use Vaping status: Never Used Substance Use Topics Alcohol use: Not Currently Comment: seldom Drug use: Never PHYSICAL EXAM BP 118/78 Pulse 99 Resp 16 LMP 08/16/2023 (Within Weeks) SpO2 99% General Appearance: well appearing, in no acute distress, alert Pysch: mood and affect broad and appropriate Eyes: conjunctiva pink and moist, no icterus, sclera white, non-injected Lungs: Lungs clear to auscultation. No wheezing, rhonchi, rales. Heart: RRR without murmur, gallop, or rubs. No ectopy Health maintenance reviewed with patient: Influenza Vaccine(1) due on 10/26/2023 Covid-19 Vaccine( season) due on 10/26/2023 DTaP,Tdap,Td Vaccine(8 - Td or Tdap) due on 08/24/2025 Cervical Cancer Screening due on 01/03/2028 Hepatitis B Vaccine Completed HPV Vaccine Completed Hepatitis C Screening Completed HIV Screening Completed DATA REVIEWED: No new labs ASSESSMENT/PLAN: 1. Attention deficit hyperactivity disorder (ADHD), predominantly inattentive type - ICD9: 314.00, ICD10: F90.0 Controlled well with current treatment PDMP website checked and validated. All prescriptions have been APPROPRIATELY filled. No suspicious activity was identified. 12/25/2023 by Antoinette Anthony APRN.ENGINE TEST CELL TECHNICIAN - DEXTROAMPHETAMINE-AMPHETAMINE ER 15 MG 24HR CAPSULE,EXTEND RELEASE - DEXTROAMPHETAMINE-AMPHETAMINE ER 15 MG 24HR CAPSULE,EXTEND RELEASE - DEXTROAMPHETAMINE-AMPHETAMINE ER 15 MG 24HR CAPSULE,EXTEND RELEASE Prescription instructions reviewed with patient as applicable. Potential red flag symptoms discussed with the patient. Reviewed appropriate action plan to take if red flag symptoms occur. Patient agreeable to treatment plan. Antoinette Anthony APRN.CNP documented in this encounter [facility] 12-17-2023 Note HNO ID: [id number] Author: NARA OCAMPO LISW Service: ? Author Type: Hvac Mechanic Type: Progress Notes Filed: 12/17/2023 17:09 Note Text: No show. Order placed for follow up appointments. [facility] 10-15-2023 Telephone encounter Note Patient notified. [facility] 10-15-2023 Miscellaneous Notes Patient notified. Do not restart prescription vit d at this time. Can continue with MVI containing vit d. We may need to restart a vit d supplement in the winter but we can discuss that at her next appointment. Thank you Antoinette Atnhony APRN.CNP Pt called and is notified of providers results and question. Pt voices understanding and states she stopped taking all medications except her antibiotic and Adderall. She wanted to see if something was irritating her bladder, because she has been having a hard time urinating. She said she stopped taking everything 14 days ago. She said she is going to start them back up tomorrow after she finishes the antibiotic. She said she had called in to get a refill on the Vit D 50,000 units as she had run out, but she takes [employer]'s gummies. Pt does not know how much Vit D is in those. She states she felt better on the Vit D because she works nights and doesn't get any sun. I told her I don't know that Antoinette Anthony was going to want to have her go back on the Vit D with her level being elevated. Please call and advise. Nayla Balbuena, RN Vit D remains high. How much vit d is she currently taking? Thank you Antoinette Anthony APRN.CNP documented in this encounter [facility] 10-15-2023 Telephone encounter Note Do not restart prescription vit d at this time. Can continue with MVI containing vit d. We may need to restart a vit d supplement in the winter but we can discuss that at her next appointment. Thank you Antoinette Anthony APRN.CNP [facility] 10-15-2023 Telephone encounter Note Pt called and is notified of providers results and question. Pt voices understanding and states she stopped taking all medications except her antibiotic and Adderall. She wanted to see if something was irritating her bladder, because she has been having a hard time urinating. She said she stopped taking everything 14 days ago. She said she is going to start them back up tomorrow after she finishes the antibiotic. She said she had called in to get a refill on the Vit D 50,000 units as she had run out, but she takes Chelle Fusion Woman's gummies. Pt does not know how much Vit D is in those. She states she felt better on the Vit D because she works nights and doesn't get any sun. I told her I don't know that Antoinette Darby was going to want to have her go back on the Vit D with her level being elevated. Please call and advise. Nayla Balbuena RN T [facility] 10-15-2023 Telephone encounter Note Vit D remains high. How much vit d is she currently taking? Thank you Antoinette Anthony APRN.CNP T [facility] 10-01-2023 Telephone encounter Note Detailed message left for patient on her identified voicemail, of provider's message below. Informed patient to call office if has nay further questions. Santa Monson RN [facility] 10-01-2023 Miscellaneous Notes Detailed message left for patient on her identified voicemail, of provider's message below. Informed patient to call office if has nay further questions. Santa Monson RN I worry that the once a week will still be too much as well. It has been 6 weeks since med change so I would like to get an updated level prior to sending new script. Thank you Antoinette Anthony APRN.CNP Patient reports she has been ordered to take Vit D3 50,000 units once a week, since 08/21/23. This dose was a reduction from her previous dose due to her last Vit D level being very high. Patient asking for refill and also asking if she needs to continue same dose of 50,000 units once a week? [facility]ses [facility] [place]. Thank you. documented in this encounter [facility] 10-01-2023 Telephone encounter Note I worry that the once a week will still be too much as well. It has been 6 weeks since med change so I would like to get an updated level prior to sending new script. Thank you Antoinette Anthony APRN.CNP [facility] 09-29-2023 Telephone encounter Note Patient notified. Angeles Crowell RN [facility] 09-29-2023 Miscellaneous Notes Patient notified. Angeles Crowell RN Diflucan x 3 doses sent in. Lena Olguin APRN.FLORI Patient asking if she should take more than one diflucan. She is currently on doxycycline then in a couple days will start the moxifloxacin for a week too. Only call back if more is sent to the pharmacy. Angeles Crowell RN Diflucan sent. Lena Olguin APRN.CNP Patient currently on antibiotic and now c/o yeast infection. States she gets these frequently with antibiotic use. C/o vaginal itching and burning. No discharge. Unable to take probiotic d/t stomach issues and she can't tolerate it. Requesting diflucan. Pharmacy correct. Please advise. Angeles Crowell RN documented in this encounter [facility] 09-29-2023 Telephone encounter Note Patient reports she has been ordered to take Vit D3 50,000 units once a week, since 08/21/23. This dose was a reduction from her previous dose due to her last Vit D level being very high. Patient asking for refill and also asking if she needs to continue same dose of 50,000 units once a week? [facility]ses [facility]. Thank you. [facility] 09-29-2023 Telephone encounter Note Diflucan x 3 doses sent in. Lena Olguin APRN.FLORI [facility] 09-29-2023 Telephone encounter Note Patient asking if she should take more than one diflucan. She is currently on doxycycline then in a couple days will start the moxifloxacin for a week too. Only call back if more is sent to the pharmacy. Angeles Crowell RN [facility] 09-29-2023 Telephone encounter Note Diflucan sent. Lena Olguin APRN.CNP [facility] 09-29-2023 Telephone encounter Note Patient currently on antibiotic and now c/o yeast infection. States she gets these frequently with antibiotic use. C/o vaginal itching and burning. No discharge. Unable to take probiotic d/t stomach issues and she can't tolerate it. Requesting diflucan. Pharmacy correct. Please advise. Angeles Crowell RN [facility] 09-24-2023 Telephone encounter Note Patient viewed her urine mycoplasma results on Mychart. UR Parvum PCR detected. Patient is wanting an antibiotic. Patient wanted RM to know that she wants treatment. Aware RM returns to the office tomorrow. Beverly Foreman, SHERRIE [facility] 09-24-2023 Miscellaneous Notes Patient viewed her urine mycoplasma results on Mychart. UR Parvum PCR detected. Patient is wanting an antibiotic. Patient wanted RM to know that she wants treatment. Aware RM returns to the office tomorrow. Beverly Foreman RN documented in this encounter [facility] 09-19-2023 Note HNO ID: [id number] Author: LENA OLGUIN APRN.ENGINE TEST CELL TECHNICIAN Service: ? Author Type: Nurse Practitioner Type: Progress Notes Filed: 09/19/2023 14:47 Note Text: Audiologist offered: Patient declines. Johanna Carver is a 38 year old female who presents for problem visit bladder pain and rash on buttock. HPI: Patient states that she is having some bladder pain mostly on the left side kidney pain. She does have an appointment with urology next week. She also complains of a rash on her left butt cheek that has been very itchy. OB History T0 L2 SAB0 IAB0 Ectopic0 Multiple0 Live Births0 Bed Manager History LMP: 08/16/2023 (Within Weeks), Having periods Age at Menarche: Age at First : Age at Menopause: Bed Manager History Comments: Sexual Activity: Yes; Male Contraception: Condom PAST MEDICAL HISTORY Diagnosis Date ADHD (attention deficit hyperactivity disorder) Adjustment disorder with depressed mood was previously on Paxil/effexor, self dc'ed for weight gain. Anemia Concussion 2016 Depressive disorder, not elsewhere classified Environmental and seasonal allergies Eosinophilic esophagitis 2016 Esophageal dysmotility 02/27/2018 Foot fracture, left 2016 TBI (traumatic brain injury) (HCC) Unspecified symptom associated with female genital organs Pain in the vulvar area PAST SURGICAL HISTORY Procedure Laterality Date CORRECT BUNION,SIMPLE 2006 right EGD 1 or 2 times yearly REDUCTION OF LARGE BREAST 10/05/2008 Bilateral, uncomplciated RPR 1ST INGUN HRNA FULL TERM INFT <6 MO RDC FAMILY HISTORY Problem Relation Age of Onset Psychiatry Mother post depression Ischemic Heart Disease Maternal Grandfather Heart Paternal Grandmother Pacemaker Cancer Paternal Grandmother Ischemic Heart Disease Paternal Grandfather Social History Tobacco Use Smoking status: Former Types: Cigarettes Quit date: 12/25/2016 Years since quittin.7 Smokeless tobacco: Never Tobacco comments: A few cigarettes per week. Vaping Use Vaping Use: Never used Substance Use Topics Alcohol use: Not Currently Comment: seldom Drug use: Never Current Outpatient Medications Medication Sig Collagenase powd amphetamine-dextroamphetamine XR (ADDERALL XR) 15 mg capsule Take 1 capsule by mouth once daily for 30 days. [START ON 10/05/2023] amphetamine-dextroamphetamine XR (ADDERALL XR) 15 mg capsule Take 1 capsule by mouth once daily for 30 days. Do not start before October 05, 2023. [START ON 11/04/2023] amphetamine-dextroamphetamine XR (ADDERALL XR) 15 mg capsule Take 1 capsule by mouth once daily for 30 days. Do not start before November 04, 2023. cholecalciferol, Vitamin D3, (VITAMIN D3) 1,250 mcg (50,000 unit) cap capsule Take 1 capsule by mouth one time a week. baclofen 10 mg tablet 1 tab bid prn for spasms spironolactone (ALDACTONE) 25 mg tablet Take 25 mg by mouth once daily. Clindamycin Phosphate (CLEOCIN T) 1 % lotion Apply once a day as a spot treatment to the face fluticasone (FLONASE) 50 mcg/actuation nasal spray Use 2 Sprays in each nostril once daily. Rinse mouth after use. adapalene-benzoyl peroxide 0.3-2.5 % Apply to affected area three times a week. ibuprofen (MOTRIN ORAL) Take 400 mg by mouth as needed. No current facility-administered medications for this visit. Allergies As of Date: 09/19/2023 Allergen Noted Reaction DOXYCYCLINE HYCLATE 06/30/2017 Unknown PENICILLINS 10/03/2005 Hives SULFA (SULFONAMIDE ANTIBIOTICS) 05/31/2019 Swelling Fully Assessed 09/19/2023 REVIEW OF SYSTEMS Bladder: No dysuria, gross hematuria, urinary frequency, urinary urgency, or incontinence. Expanded ROS: N/A Allergies and current medication updated:Yes EXAM: BP 110/64 Wt 130 lb (59.0kg) LMP 08/16/2023 GENERAL: pleasant, female in no apparent distress HEENT: Normocephalic, atraumatic, mucus membranes moist, and no lesions CHEST: Normal inspiratory effort PELVIC: external genitalia normal, normal Bartholin's glands, urethra, [place]'s glands, no vulvar lesions, no cervical lesions, good vaginal support, physiologic discharge present, normal appearing perineal body and perianal region, possible eczema rash on inner left butt cheek NEURO: alert and oriented x3,exam grossly non-focal EXTREMITIES: normal ASSESSMENT/PLAN: 1. Bladder pain - ICD9: 788.99, ICD10: R39.89 (primary diagnosis) Will notify patient of test results. - UROGENITAL UREAPLASMA AND MYCOPLASMA SPECIES BY PCR, FOR GENITAL, RECTAL, URINE SAMPLES - URINE CULTURE 2. Eczema, unspecified type - ICD9: 692.9, ICD10: L30.9 - Topical steriod tx with Rx for steriod cream/ointment- see orders - discussed skin care of rash - follow up if symptoms persist or worsen. Lena Olguin APRN.ENGINE TEST CELL TECHNICIAN Medical Decision Making: Problems: Moderate: New problem with uncertain prognosis Data: Unique test(s) ordered: 2 Risk: Moderate: Drug management Medical Decision Izaiah (more content not included)... [facility] 09-19-2023 History of Present illness Narrative Audiologist offered: Patient declines. Johanna Carver is a 38 year old female who presents for problem visit bladder pain and rash on buttock. HPI: Patient states that she is having some bladder pain mostly on the left side kidney pain. She does have an appointment with urology next week. She also complains of a rash on her left butt cheek that has been very itchy. OB History T0 L2 SAB0 IAB0 Ectopic0 Multiple0 Live Births0 Bed Manager History LMP: 08/16/2023 (Within Weeks), Having periods Age at Menarche: Age at First : Age at Menopause: Bed Manager History Comments: Sexual Activity: Yes; Male Contraception: Condom PAST MEDICAL HISTORY Diagnosis Date ADHD (attention deficit hyperactivity disorder) Adjustment disorder with depressed mood was previously on Paxil/effexor, self dc'ed for weight gain. Anemia Concussion 2016 Depressive disorder, not elsewhere classified Environmental and seasonal allergies Eosinophilic esophagitis 2016 Esophageal dysmotility 02/27/2018 Foot fracture, left 2016 TBI (traumatic brain injury) (HCC) Unspecified symptom associated with female genital organs Pain in the vulvar area PAST SURGICAL HISTORY Procedure Laterality Date CORRECT BUNION,SIMPLE 2005 right EGD 1 or 2 times yearly REDUCTION OF LARGE BREAST 10/05/2008 Bilateral, uncomplciated RPR 1ST INGUN HRNA FULL TERM INFT <6 MO RDC FAMILY HISTORY Problem Relation Age of Onset Psychiatry Mother post depression Ischemic Heart Disease Maternal Grandfather Heart Paternal Grandmother Pacemaker Cancer Paternal Grandmother Ischemic Heart Disease Paternal Grandfather Social History Tobacco Use Smoking status: Former Types: Cigarettes Quit date: 12/25/2016 Years since quittin.7 Smokeless tobacco: Never Tobacco comments: A few cigarettes per week. Vaping Use Vaping Use: Never used Substance Use Topics Alcohol use: Not Currently Comment: seldom Drug use: Never Current Outpatient Medications Medication Sig Collagenase powd amphetamine-dextroamphetamine XR (ADDERALL XR) 15 mg capsule Take 1 capsule by mouth once daily for 30 days. [START ON 10/05/2023] amphetamine-dextroamphetamine XR (ADDERALL XR) 15 mg capsule Take 1 capsule by mouth once daily for 30 days. Do not start before October 05, 2023. [START ON 11/04/2023] amphetamine-dextroamphetamine XR (ADDERALL XR) 15 mg capsule Take 1 capsule by mouth once daily for 30 days. Do not start before November 04, 2023. cholecalciferol, Vitamin D3, (VITAMIN D3) 1,250 mcg (50,000 unit) cap capsule Take 1 capsule by mouth one time a week. baclofen 10 mg tablet 1 tab bid prn for spasms spironolactone (ALDACTONE) 25 mg tablet Take 25 mg by mouth once daily. Clindamycin Phosphate (CLEOCIN T) 1 % lotion Apply once a day as a spot treatment to the face fluticasone (FLONASE) 50 mcg/actuation nasal spray Use 2 Sprays in each nostril once daily. Rinse mouth after use. adapalene-benzoyl peroxide 0.3-2.5 % Apply to affected area three times a week. ibuprofen (MOTRIN ORAL) Take 400 mg by mouth as needed. No current facility-administered medications for this visit. Allergies As of Date: 09/19/2023 Allergen Noted Reaction DOXYCYCLINE HYCLATE 06/30/2017 Unknown PENICILLINS 10/03/2005 Hives SULFA (SULFONAMIDE ANTIBIOTICS) 05/31/2019 Swelling Fully Assessed 09/19/2023 REVIEW OF SYSTEMS Bladder: No dysuria, gross hematuria, urinary frequency, urinary urgency, or incontinence. Expanded ROS: N/A Allergies and current medication updated:Yes EXAM: BP 110/64 Wt 130 lb (59.0kg) LMP 08/16/2023 GENERAL: pleasant, female in no apparent distress HEENT: Normocephalic, atraumatic, mucus membranes moist, and no lesions CHEST: Normal inspiratory effort PELVIC: external genitalia normal, normal Bartholin's glands, urethra, [place]'s glands, no vulvar lesions, no cervical lesions, good vaginal support, physiologic discharge present, normal appearing perineal body and perianal region, possible eczema rash on inner left butt cheek NEURO: alert and oriented x3,exam grossly non-focal EXTREMITIES: normal ASSESSMENT/PLAN: 1. Bladder pain - ICD9: 788.99, ICD10: R39.89 (primary diagnosis) Will notify patient of test results. - UROGENITAL UREAPLASMA AND MYCOPLASMA SPECIES BY PCR, FOR GENITAL, RECTAL, URINE SAMPLES - URINE CULTURE 2. Eczema, unspecified type - ICD9: 692.9, ICD10: L30.9 - Topical steriod tx with Rx for steriod cream/ointment- see orders - discussed skin care of rash - follow up if symptoms persist or worsen. Lena Olguin APRN.CNP Medical Decision Making: Problems: Moderate: New problem with uncertain prognosis Data: Unique test(s) ordered: 2 Risk: Moderate: Drug management Medical Decision Making Level: 4 - Moderate documented in this encounter [facility] 09-05-2023 Note HNO ID: [id number] Author: LENA OLGUIN APRN.CNP Service: ? Author Type: Nurse Practitioner Type: Progress Notes Filed: 09/05/2023 13:34 Note Text: Audiologist offered: Patient declines. Johanna Carver is a 38 year old female who presents for STD testing HPI: new partner recently and would like STD testing done. OB History T0 L2 SAB0 IAB0 Ectopic0 Multiple0 Live Births0 Bed Manager History LMP: 08/16/2023 (Within Weeks), Having periods Age at Menarche: Age at First : Age at Menopause: Bed Manager History Comments: Sexual Activity: Yes; Male Contraception: Condom PAST MEDICAL HISTORY Diagnosis Date ADHD (attention deficit hyperactivity disorder) Adjustment disorder with depressed mood was previously on Paxil/effexor, self ky'ed for weight gain. Anemia Concussion 2016 Depressive disorder, not elsewhere classified Environmental and seasonal allergies Eosinophilic esophagitis 2016 Esophageal dysmotility 02/27/2018 Foot fracture, left 2016 TBI (traumatic brain injury) (HCC) Unspecified symptom associated with female genital organs Pain in the vulvar area PAST SURGICAL HISTORY Procedure Laterality Date CORRECT BUNION,SIMPLE 2006 right EGD 1 or 2 times yearly REDUCTION OF LARGE BREAST 10/05/2008 Bilateral, uncomplciated RPR 1ST INGUN HRNA FULL TERM INFT <6 MO RDC FAMILY HISTORY Problem Relation Age of Onset Psychiatry Mother post depression Ischemic Heart Disease Maternal Grandfather Heart Paternal Grandmother Pacemaker Cancer Paternal Grandmother Ischemic Heart Disease Paternal Grandfather Social History Tobacco Use Smoking status: Former Types: Cigarettes Quit date: 12/25/2016 Years since quittin.6 Smokeless tobacco: Never Tobacco comments: A few cigarettes per week. Vaping Use Vaping Use: Never used Substance Use Topics Alcohol use: Yes Comment: seldom Drug use: No Current Outpatient Medications Medication Sig amphetamine-dextroamphetamine XR (ADDERALL XR) 15 mg capsule Take 1 capsule by mouth once daily for 30 days. [START ON 10/05/2023] amphetamine-dextroamphetamine XR (ADDERALL XR) 15 mg capsule Take 1 capsule by mouth once daily for 30 days. Do not start before October 05, 2023. [START ON 11/04/2023] amphetamine-dextroamphetamine XR (ADDERALL XR) 15 mg capsule Take 1 capsule by mouth once daily for 30 days. Do not start before November 04, 2023. cholecalciferol, Vitamin D3, (VITAMIN D3) 1,250 mcg (50,000 unit) cap capsule Take 1 capsule by mouth one time a week. baclofen 10 mg tablet 1 tab bid prn for spasms spironolactone (ALDACTONE) 25 mg tablet Clindamycin Phosphate (CLEOCIN T) 1 % lotion Apply once a day as a spot treatment to the face fluticasone (FLONASE) 50 mcg/actuation nasal spray Use 2 Sprays in each nostril once daily. Rinse mouth after use. adapalene-benzoyl peroxide 0.3-2.5 % Apply to affected area three times a week. ibuprofen (MOTRIN ORAL) Take 400 mg by mouth as needed. No current facility-administered medications for this visit. Allergies As of Date: 09/05/2023 Allergen Noted Reaction DOXYCYCLINE HYCLATE 06/30/2017 Unknown PENICILLINS 10/03/2005 Hives SULFA (SULFONAMIDE ANTIBIOTICS) 05/31/2019 Swelling Fully Assessed 09/05/2023 REVIEW OF SYSTEMS Bladder: No dysuria, gross hematuria, urinary frequency, urinary urgency, +stress incontinence. Expanded ROS: N/A Allergies and current medication updated:Yes EXAM: LMP 08/16/2023 GENERAL: pleasant, female in no apparent distress HEENT: Normocephalic, atraumatic, mucus membranes moist, and no lesions CHEST: Normal inspiratory effort PELVIC: external genitalia normal, normal Bartholin's glands, urethra, [place]'s glands, no vulvar lesions, no cervical lesions, good vaginal support, physiologic discharge present, normal appearing perineal body and perianal region BIMANUAL: deferred NEURO: alert and oriented x3,exam grossly non-focal EXTREMITIES: normal ASSESSMENT/PLAN: 1. Screening for STD (sexually transmitted disease) - ICD9: V74.5, ICD10: Z11.3 Will notify patient of test results. - GONORRHEA/CHLAMYDIA NAAT - SYPHILIS TOTAL W/REFLEX - HIV 1/2 COMBO WITH REFLEX TO DIFFERENTIATION - HEPATITIS C ANTIBODY IA WITH CONFIRMATION - HEPATITIS B SURFACE ANTIGEN - TEZ/TRICHOMONAS NAAT - BACTERIAL VAGINOSIS NAAT Lena Olguin, SCREEN EXAMINER.ENGINE TEST CELL TECHNICIAN Medical Decision Making: Problems: Moderate: New problem with uncertain prognosis Data: Unique test(s) ordered: 3+ Risk: Low: Low risk from testing/treatment Medical Decision Making Level: 4 - Moderate [facility] 09-05-2023 History of Present illness Narrative Audiologist offered: Patient declines. Johanna Carver is a 38 year old female who presents for STD testing HPI: new partner recently and would like STD testing done. OB History T0 L2 SAB0 IAB0 Ectopic0 Multiple0 Live Births0 Bed Manager History LMP: 08/16/2023 (Within Weeks), Having periods Age at Menarche: Age at First : Age at Menopause: Bed Manager History Comments: Sexual Activity: Yes; Male Contraception: Condom PAST MEDICAL HISTORY Diagnosis Date ADHD (attention deficit hyperactivity disorder) Adjustment disorder with depressed mood was previously on Paxil/effexor, self ky'ed for weight gain. Anemia Concussion 2016 Depressive disorder, not elsewhere classified Environmental and seasonal allergies Eosinophilic esophagitis 2016 Esophageal dysmotility 02/27/2018 Foot fracture, left 2016 TBI (traumatic brain injury) (HCC) Unspecified symptom associated with female genital organs Pain in the vulvar area PAST SURGICAL HISTORY Procedure Laterality Date CORRECT BUNION,SIMPLE 2006 right EGD 1 or 2 times yearly REDUCTION OF LARGE BREAST 10/05/2008 Bilateral, uncomplciated RPR 1ST INGUN HRNA FULL TERM INFT <6 MO RDC FAMILY HISTORY Problem Relation Age of Onset Psychiatry Mother post depression Ischemic Heart Disease Maternal Grandfather Heart Paternal Grandmother Pacemaker Cancer Paternal Grandmother Ischemic Heart Disease Paternal Grandfather Social History Tobacco Use Smoking status: Former Types: Cigarettes Quit date: 12/25/2016 Years since quittin.6 Smokeless tobacco: Never Tobacco comments: A few cigarettes per week. Vaping Use Vaping Use: Never used Substance Use Topics Alcohol use: Yes Comment: seldom Drug use: No Current Outpatient Medications Medication Sig amphetamine-dextroamphetamine XR (ADDERALL XR) 15 mg capsule Take 1 capsule by mouth once daily for 30 days. [START ON 10/05/2023] amphetamine-dextroamphetamine XR (ADDERALL XR) 15 mg capsule Take 1 capsule by mouth once daily for 30 days. Do not start before October 05, 2023. [START ON 11/04/2023] amphetamine-dextroamphetamine XR (ADDERALL XR) 15 mg capsule Take 1 capsule by mouth once daily for 30 days. Do not start before November 04, 2023. cholecalciferol, Vitamin D3, (VITAMIN D3) 1,250 mcg (50,000 unit) cap capsule Take 1 capsule by mouth one time a week. baclofen 10 mg tablet 1 tab bid prn for spasms spironolactone (ALDACTONE) 25 mg tablet Clindamycin Phosphate (CLEOCIN T) 1 % lotion Apply once a day as a spot treatment to the face fluticasone (FLONASE) 50 mcg/actuation nasal spray Use 2 Sprays in each nostril once daily. Rinse mouth after use. adapalene-benzoyl peroxide 0.3-2.5 % Apply to affected area three times a week. ibuprofen (MOTRIN ORAL) Take 400 mg by mouth as needed. No current facility-administered medications for this visit. Allergies As of Date: 09/05/2023 Allergen Noted Reaction DOXYCYCLINE HYCLATE 06/30/2017 Unknown PENICILLINS 10/03/2005 Hives SULFA (SULFONAMIDE ANTIBIOTICS) 05/31/2019 Swelling Fully Assessed 09/05/2023 REVIEW OF SYSTEMS Bladder: No dysuria, gross hematuria, urinary frequency, urinary urgency, +stress incontinence. Expanded ROS: N/A Allergies and current medication updated:Yes EXAM: LMP 08/16/2023 GENERAL: pleasant, female in no apparent distress HEENT: Normocephalic, atraumatic, mucus membranes moist, and no lesions CHEST: Normal inspiratory effort PELVIC: external genitalia normal, normal Bartholin's glands, urethra, [place]'s glands, no vulvar lesions, no cervical lesions, good vaginal support, physiologic discharge present, normal appearing perineal body and perianal region BIMANUAL: deferred NEURO: alert and oriented x3,exam grossly non-focal EXTREMITIES: normal ASSESSMENT/PLAN: 1. Screening for STD (sexually transmitted disease) - ICD9: V74.5, ICD10: Z11.3 Will notify patient of test results. - GONORRHEA/CHLAMYDIA NAAT - SYPHILIS TOTAL W/REFLEX - HIV 1/2 COMBO WITH REFLEX TO DIFFERENTIATION - HEPATITIS C ANTIBODY IA WITH CONFIRMATION - HEPATITIS B SURFACE ANTIGEN - TEZ/TRICHOMONAS NAAT - BACTERIAL VAGINOSIS NAAT Lena Olguin APRN.CNP Medical Decision Making: Problems: Moderate: New problem with uncertain prognosis Data: Unique test(s) ordered: 3+ Risk: Low: Low risk from testing/treatment Medical Decision Making Level: 4 - Moderate documented in this encounter [facility] 09-05-2023 Note HNO ID: [id number] Author: ANTOINETTE ANTHONY APRN.CNP Service: ? Author Type: Nurse Practitioner Type: Progress Notes Filed: 09/05/2023 09:21 Note Text: CC: Patient presents with: Recheck: Medication follow up SILVIA Carver is a 38 year old female who presents today for ADD follow up. Had Adderall increased 2 weeks ago. 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 Patient was to monitor HR at home with increased dose and bring in readings. She did not work last night. HR at home has been consistently 70s-80s with the increased dose. Has had improved concentration during work and at home with ability to completed tasks efficiently. Denies any headaches, palpitations, shortness of breath, chest pain, dizziness, or new concerns. REVIEW OF SYSTEMS See HPI PAST MEDICAL HISTORY Diagnosis Date ADHD (attention deficit hyperactivity disorder) Adjustment disorder with depressed mood was previously on Paxil/effexor, self ky'ed for weight gain. Anemia Concussion 2016 Depressive disorder, not elsewhere classified Environmental and seasonal allergies Eosinophilic esophagitis 2016 Esophageal dysmotility 02/27/2018 Foot fracture, left 2016 TBI (traumatic brain injury) (HCC) Unspecified symptom associated with female genital organs Pain in the vulvar area PAST SURGICAL HISTORY Procedure Laterality Date CORRECT BUNION,SIMPLE 2006 right EGD 1 or 2 times yearly REDUCTION OF LARGE BREAST 10/05/2008 Bilateral, uncomplciated RPR 1ST INGUN HRNA FULL TERM INFT <6 MO RDC ALLERGIES Doxycycline Hyclate, Penicillins, and Sulfa (Sulfonamide Antibiotics) MEDICATIONS cholecalciferol, Vitamin D3, (VITAMIN D3) 1,250 mcg (50,000 unit) cap capsule Take 1 capsule by mouth one time a week. amphetamine-dextroamphetamine XR (ADDERALL XR) 5 mg capsule Take 1 capsule by mouth once daily for 14 days. Take with 10mg to equal 15mg baclofen 10 mg tablet 1 tab bid prn for spasms spironolactone (ALDACTONE) 25 mg tablet amphetamine-dextroamphetamine XR (ADDERALL XR) 10 mg capsule Take 1 capsule by mouth once daily for 30 days. Do not start before August 07, 2023. amphetamine-dextroamphetamine XR (ADDERALL XR) 10 mg capsule Take 1 capsule by mouth once daily for 30 days. Do not start before July 08, 2023. amphetamine-dextroamphetamine XR (ADDERALL XR) 10 mg capsule Take 1 capsule by mouth once daily for 30 days. Do not start before May 09, 2023. Clindamycin Phosphate (CLEOCIN T) 1 % lotion Apply once a day as a spot treatment to the face amphetamine-dextroamphetamine XR (ADDERALL XR) 10 mg capsule Take 1 capsule by mouth once daily for 30 days. Do not start before February 08, 2023. fluticasone (FLONASE) 50 mcg/actuation nasal spray Use 2 Sprays in each nostril once daily. Rinse mouth after use. adapalene-benzoyl peroxide 0.3-2.5 % Apply to affected area three times a week. ibuprofen (MOTRIN ORAL) Take 400 mg by mouth as needed. FAMILY HISTORY Problem Relation Age of Onset Psychiatry Mother post depression Ischemic Heart Disease Maternal Grandfather Heart Paternal Grandmother Pacemaker Cancer Paternal Grandmother Ischemic Heart Disease Paternal Grandfather Social History Tobacco Use Smoking status: Former Types: Cigarettes Quit date: 12/25/2016 Years since quittin.6 Smokeless tobacco: Never Tobacco comments: A few cigarettes per week. Vaping Use Vaping Use: Never used Substance Use Topics Alcohol use: Yes Comment: seldom Drug use: No PHYSICAL EXAM BP 118/78 Pulse 88 Resp 16 LMP 08/16/2023 (Within Weeks) SpO2 100% Appearance: well dressed well groomed, cooperative, and pleasant Behavior: good eye contact Speech: normal and fluent and coherent Mood: happy Affect: appropriate Perceptions: none Thought process: goal directed Thought Content: normal Intelligence level: normal Insight: good Judgment: good Eyes: conjunctiva pink and moist, no icterus, sclera white, non-injected Lungs: Lungs clear to auscultation. No wheezing, rhonchi, rales. Heart: RRR without murmur, gallop, or rubs. No ectopy ASSESSMENT/PLAN: 1. Attention deficit disorder, unspecified hyperactivity presence - ICD9: 314.00, ICD10: F98.8 Tolerating well with normal HR. Also is effective Follow up in 3 months - DEXTROAMPHETAMINE-AMPHETAMINE ER 15 MG 24HR CAPSULE,EXTEND RELEASE - DEXTROAMPHETAMINE-AMPHETAMINE ER 15 MG 24HR CAPSULE,EXTEND RELEASE - DEXTROAMPHETAMINE-AMPHETAMINE ER 15 MG 24HR CAPSULE,EXTEND RELEASE PDMP website checked and validated. All prescriptions have been APPROPRIATELY filled. No suspicious activity was identified. 09/05/2023 by Antoinette Anthony APRN.ENGINE TEST CELL TECHNICIAN Prescription instructions reviewed with patient as applicable. Potential red flag symptoms discussed with the patient. Reviewed appropriate action plan to take if red flag symptoms occur. Patient (more content not included)... [facility] 09-05-2023 History of Present illness Narrative CC: Patient presents with: Recheck: Medication follow up SILVIA Carver is a 38 year old female who presents today for ADD follow up. Had Adderall increased 2 weeks ago. 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 Patient was to monitor HR at home with increased dose and bring in readings. She did not work last night. HR at home has been consistently 70s-80s with the increased dose. Has had improved concentration during work and at home with ability to completed tasks efficiently. Denies any headaches, palpitations, shortness of breath, chest pain, dizziness, or new concerns. REVIEW OF SYSTEMS See HPI PAST MEDICAL HISTORY Diagnosis Date ADHD (attention deficit hyperactivity disorder) Adjustment disorder with depressed mood was previously on Paxil/effexor, self ky'ed for weight gain. Anemia Concussion 2016 Depressive disorder, not elsewhere classified Environmental and seasonal allergies Eosinophilic esophagitis 2016 Esophageal dysmotility 02/27/2018 Foot fracture, left 2016 TBI (traumatic brain injury) ([facility]) Unspecified symptom associated with female genital organs Pain in the vulvar area PAST SURGICAL HISTORY Procedure Laterality Date CORRECT BUNION,SIMPLE 2005 right EGD 1 or 2 times yearly REDUCTION OF LARGE BREAST 10/05/2008 Bilateral, uncomplciated RPR 1ST INGUN HRNA FULL TERM INFT <6 MO RDC ALLERGIES Doxycycline Hyclate, Penicillins, and Sulfa (Sulfonamide Antibiotics) MEDICATIONS cholecalciferol, Vitamin D3, (VITAMIN D3) 1,250 mcg (50,000 unit) cap capsule Take 1 capsule by mouth one time a week. amphetamine-dextroamphetamine XR (ADDERALL XR) 5 mg capsule Take 1 capsule by mouth once daily for 14 days. Take with 10mg to equal 15mg baclofen 10 mg tablet 1 tab bid prn for spasms spironolactone (ALDACTONE) 25 mg tablet amphetamine-dextroamphetamine XR (ADDERALL XR) 10 mg capsule Take 1 capsule by mouth once daily for 30 days. Do not start before August 07, 2023. amphetamine-dextroamphetamine XR (ADDERALL XR) 10 mg capsule Take 1 capsule by mouth once daily for 30 days. Do not start before July 08, 2023. amphetamine-dextroamphetamine XR (ADDERALL XR) 10 mg capsule Take 1 capsule by mouth once daily for 30 days. Do not start before May 09, 2023. Clindamycin Phosphate (CLEOCIN T) 1 % lotion Apply once a day as a spot treatment to the face amphetamine-dextroamphetamine XR (ADDERALL XR) 10 mg capsule Take 1 capsule by mouth once daily for 30 days. Do not start before February 08, 2023. fluticasone (FLONASE) 50 mcg/actuation nasal spray Use 2 Sprays in each nostril once daily. Rinse mouth after use. adapalene-benzoyl peroxide 0.3-2.5 % Apply to affected area three times a week. ibuprofen (MOTRIN ORAL) Take 400 mg by mouth as needed. FAMILY HISTORY Problem Relation Age of Onset Psychiatry Mother post depression Ischemic Heart Disease Maternal Grandfather Heart Paternal Grandmother Pacemaker Cancer Paternal Grandmother Ischemic Heart Disease Paternal Grandfather Social History Tobacco Use Smoking status: Former Types: Cigarettes Quit date: 12/25/2016 Years since quittin.6 Smokeless tobacco: Never Tobacco comments: A few cigarettes per week. Vaping Use Vaping Use: Never used Substance Use Topics Alcohol use: Yes Comment: seldom Drug use: No PHYSICAL EXAM BP 118/78 Pulse 88 Resp 16 LMP 08/16/2023 (Within Weeks) SpO2 100% Appearance: well dressed well groomed, cooperative, and pleasant Behavior: good eye contact Speech: normal and fluent and coherent Mood: happy Affect: appropriate Perceptions: none Thought process: goal directed Thought Content: normal Intelligence level: normal Insight: good Judgment: good Eyes: conjunctiva pink and moist, no icterus, sclera white, non-injected Lungs: Lungs clear to auscultation. No wheezing, rhonchi, rales. Heart: RRR without murmur, gallop, or rubs. No ectopy ASSESSMENT/PLAN: 1. Attention deficit disorder, unspecified hyperactivity presence - ICD9: 314.00, ICD10: F98.8 Tolerating well with normal HR. Also is effective Follow up in 3 months - DEXTROAMPHETAMINE-AMPHETAMINE ER 15 MG 24HR CAPSULE,EXTEND RELEASE - DEXTROAMPHETAMINE-AMPHETAMINE ER 15 MG 24HR CAPSULE,EXTEND RELEASE - DEXTROAMPHETAMINE-AMPHETAMINE ER 15 MG 24HR CAPSULE,EXTEND RELEASE PDMP website checked and validated. All prescriptions have been APPROPRIATELY filled. No suspicious activity was identified. 09/05/2023 by Antoinette Anthony APRN.CNP Prescription instructions reviewed with patient as applicable. Potential red flag symptoms discussed with the patient. Reviewed appropriate action plan to take if red flag symptoms occur. Patient agreeable to treatment plan Antoinette Anthony APRN.CNP documented in this encounter [facility] 08-26-2023 Note HNO ID: [id number] Author: ECTOR BAUTISTA APRN.CNP Service: ? Author Type: Nurse Practitioner Type: Progress Notes Filed: 08/26/2023 13:39 Note Text: Subjective HPI Nontoxic-appearing female presents urgent care chief complaint sore throat nasal drainage fatigue cough. Duration of symptoms 5 days. Associated symptoms listed above. Daughter sick similar signs symptoms. No OTC medication use today. Denies any significant pain. Denies any fever body aches chills productive cough chest pain shortness of breath pleuritic pain hemoptysis nausea vomiting abdominal pain change in bowel or bladder habits. Past medical history prescription medication use and allergies reviewed. .Patient presents with: Cough: Sore throat, drainage, nasal congestion, fatigue, x 5 days PAST MEDICAL HISTORY Diagnosis Date ADHD (attention deficit hyperactivity disorder) Adjustment disorder with depressed mood was previously on Paxil/effexor, self ky'ed for weight gain. Anemia Concussion 2015 Depressive disorder, not elsewhere classified Environmental and seasonal allergies Eosinophilic esophagitis 2016 Esophageal dysmotility 02/27/2018 Foot fracture, left 2016 TBI (traumatic brain injury) ([facility]) Unspecified symptom associated with female genital organs Pain in the vulvar area PAST SURGICAL HISTORY Procedure Laterality Date CORRECT BUNION,SIMPLE 2005 right EGD 1 or 2 times yearly REDUCTION OF LARGE BREAST 10/05/2008 Bilateral, uncomplciated RPR 1ST INGUN HRNA FULL TERM INFT <6 MO RDC ALLERGIES Doxycycline Hyclate, Penicillins, and Sulfa (Sulfonamide Antibiotics) MEDICATIONS cholecalciferol, Vitamin D3, (VITAMIN D3) 1,250 mcg (50,000 unit) cap capsule Take 1 capsule by mouth one time a week. amphetamine-dextroamphetamine XR (ADDERALL XR) 5 mg capsule Take 1 capsule by mouth once daily for 14 days. Take with 10mg to equal 15mg baclofen 10 mg tablet 1 tab bid prn for spasms spironolactone (ALDACTONE) 25 mg tablet amphetamine-dextroamphetamine XR (ADDERALL XR) 10 mg capsule Take 1 capsule by mouth once daily for 30 days. Do not start before August 07, 2023. Clindamycin Phosphate (CLEOCIN T) 1 % lotion Apply once a day as a spot treatment to the face fluticasone (FLONASE) 50 mcg/actuation nasal spray Use 2 Sprays in each nostril once daily. Rinse mouth after use. adapalene-benzoyl peroxide 0.3-2.5 % Apply to affected area three times a week. ibuprofen (MOTRIN ORAL) Take 400 mg by mouth as needed. amphetamine-dextroamphetamine XR (ADDERALL XR) 10 mg capsule Take 1 capsule by mouth once daily for 30 days. Do not start before July 08, 2023. amphetamine-dextroamphetamine XR (ADDERALL XR) 10 mg capsule Take 1 capsule by mouth once daily for 30 days. Do not start before May 09, 2023. amphetamine-dextroamphetamine XR (ADDERALL XR) 10 mg capsule Take 1 capsule by mouth once daily for 30 days. Do not start before February 08, 2023. FAMILY HISTORY Problem Relation Age of Onset Psychiatry Mother post depression Ischemic Heart Disease Maternal Grandfather Heart Paternal Grandmother Pacemaker Cancer Paternal Grandmother Ischemic Heart Disease Paternal Grandfather Social History Tobacco Use Smoking status: Former Types: Cigarettes Quit date: 12/25/2016 Years since quittin.6 Smokeless tobacco: Never Tobacco comments: A few cigarettes per week. Vaping Use Vaping Use: Never used Substance Use Topics Alcohol use: Yes Comment: seldom Drug use: No BP 110/80 Pulse 105 Temp 36.8 ?C (98.3 ?F) Resp 18 LMP 08/16/2023 (Within Weeks) SpO2 100% Hr 82 Review of Systems Constitutional: Positive for malaise/fatigue. Negative for chills and fever. HENT: Positive for congestion and sore throat. Negative for ear discharge, ear pain and sinus pain. Eyes: Negative for blurred vision, pain, discharge and redness. Respiratory: Positive for cough. Negative for hemoptysis, sputum production, shortness of breath, wheezing and stridor. Cardiovascular: Negative for chest pain. Gastrointestinal: Negative for abdominal pain, diarrhea, nausea and vomiting. Musculoskeletal: Positive for myalgias. Skin: Negative for itching and rash. Neurological: Negative for dizziness and headaches. Objective Physical Exam Constitutional: General: She is not in acute distress. Appearance: She is not diaphoretic. HENT: Head: Normocephalic. Jaw: No trismus, tenderness, swelling or pain on movement. Right Ear: Tympanic membrane, ear canal and external ear normal. Left Ear: Tympanic membrane, ear canal and external ear normal. Nose: Congestion present. Mouth/Throat: Mouth: Mucous membranes are moist. Pharynx: Oropharynx is clear. Uvula midline. No pharyngeal swelling, oropharyngeal exudate, posterior oropharyngeal erythema or uvula swelling. Eyes: Conjunctiva/sclera: Conjunctivae normal. Pupils: Pupils are equal, round, and reactive to light. Cardi (more content not included)... [facility] 08-26-2023 History of Present illness Narrative Subjective HPI Nontoxic-appearing female presents urgent care chief complaint sore throat nasal drainage fatigue cough. Duration of symptoms 5 days. Associated symptoms listed above. Daughter sick similar signs symptoms. No OTC medication use today. Denies any significant pain. Denies any fever body aches chills productive cough chest pain shortness of breath pleuritic pain hemoptysis nausea vomiting abdominal pain change in bowel or bladder habits. Past medical history prescription medication use and allergies reviewed. .Patient presents with: Cough: Sore throat, drainage, nasal congestion, fatigue, x 5 days PAST MEDICAL HISTORY Diagnosis Date ADHD (attention deficit hyperactivity disorder) Adjustment disorder with depressed mood was previously on Paxil/effexor, self ky'ed for weight gain. Anemia Concussion 2015 Depressive disorder, not elsewhere classified Environmental and seasonal allergies Eosinophilic esophagitis 2016 Esophageal dysmotility 02/27/2018 Foot fracture, left 2016 TBI (traumatic brain injury) (HCC) Unspecified symptom associated with female genital organs Pain in the vulvar area PAST SURGICAL HISTORY Procedure Laterality Date CORRECT BUNION,SIMPLE 2005 right EGD 1 or 2 times yearly REDUCTION OF LARGE BREAST 10/05/2008 Bilateral, uncomplciated RPR 1ST INGUN HRNA FULL TERM INFT <6 MO RDC ALLERGIES Doxycycline Hyclate, Penicillins, and Sulfa (Sulfonamide Antibiotics) MEDICATIONS cholecalciferol, Vitamin D3, (VITAMIN D3) 1,250 mcg (50,000 unit) cap capsule Take 1 capsule by mouth one time a week. amphetamine-dextroamphetamine XR (ADDERALL XR) 5 mg capsule Take 1 capsule by mouth once daily for 14 days. Take with 10mg to equal 15mg baclofen 10 mg tablet 1 tab bid prn for spasms spironolactone (ALDACTONE) 25 mg tablet amphetamine-dextroamphetamine XR (ADDERALL XR) 10 mg capsule Take 1 capsule by mouth once daily for 30 days. Do not start before August 07, 2023. Clindamycin Phosphate (CLEOCIN T) 1 % lotion Apply once a day as a spot treatment to the face fluticasone (FLONASE) 50 mcg/actuation nasal spray Use 2 Sprays in each nostril once daily. Rinse mouth after use. adapalene-benzoyl peroxide 0.3-2.5 % Apply to affected area three times a week. ibuprofen (MOTRIN ORAL) Take 400 mg by mouth as needed. amphetamine-dextroamphetamine XR (ADDERALL XR) 10 mg capsule Take 1 capsule by mouth once daily for 30 days. Do not start before July 08, 2023. amphetamine-dextroamphetamine XR (ADDERALL XR) 10 mg capsule Take 1 capsule by mouth once daily for 30 days. Do not start before May 09, 2023. amphetamine-dextroamphetamine XR (ADDERALL XR) 10 mg capsule Take 1 capsule by mouth once daily for 30 days. Do not start before February 08, 2023. FAMILY HISTORY Problem Relation Age of Onset Psychiatry Mother post depression Ischemic Heart Disease Maternal Grandfather Heart Paternal Grandmother Pacemaker Cancer Paternal Grandmother Ischemic Heart Disease Paternal Grandfather Social History Tobacco Use Smoking status: Former Types: Cigarettes Quit date: 12/25/2016 Years since quittin.6 Smokeless tobacco: Never Tobacco comments: A few cigarettes per week. Vaping Use Vaping Use: Never used Substance Use Topics Alcohol use: Yes Comment: seldom Drug use: No BP 110/80 Pulse 105 Temp 36.8 C (98.3 F) Resp 18 LMP 08/16/2023 (Within Weeks) SpO2 100% Hr 82 Review of Systems Constitutional: Positive for malaise/fatigue. Negative for chills and fever. HENT: Positive for congestion and sore throat. Negative for ear discharge, ear pain and sinus pain. Eyes: Negative for blurred vision, pain, discharge and redness. Respiratory: Positive for cough. Negative for hemoptysis, sputum production, shortness of breath, wheezing and stridor. Cardiovascular: Negative for chest pain. Gastrointestinal: Negative for abdominal pain, diarrhea, nausea and vomiting. Musculoskeletal: Positive for myalgias. Skin: Negative for itching and rash. Neurological: Negative for dizziness and headaches. Objective Physical Exam Constitutional: General: She is not in acute distress. Appearance: She is not diaphoretic. HENT: Head: Normocephalic. Jaw: No trismus, tenderness, swelling or pain on movement. Right Ear: Tympanic membrane, ear canal and external ear normal. Left Ear: Tympanic membrane, ear canal and external ear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 nystatin and lozenges in the past but with her condition, she often forgot to complete the medication. Review of Systems Constitutional: Negative for fatigue, fever and unexpected weight change. HENT: Positive for mouth sores. Negative for sore throat and trouble swallowing. Respiratory: Negative. Genitourinary: Positive for vaginal discharge. Negative for dysuria. ACTIVE PROBLEM LIST Hallux Valgus (Acquired) Congenital Pes Planus Abnormality of Gait Depressive Disorder, Not Elsewhere Classified Unspecified Symptom Associated With Female Genital Organs Dysuria Trigonitis Microscopic Hematuria Spasm of Muscle Depression Generalized Anxiety Disorder Post Concussion Syndrome Traumatic Brain Injury (Hcc) Current Outpatient Medications Medication Sig baclofen 10 mg tablet 1 tab bid prn for spasms Clindamycin Phosphate (CLEOCIN T) 1 % lotion Apply once a day as a spot treatment to the face [START ON 04/09/2023] amphetamine-dextroamphetamine XR (ADDERALL XR) 10 mg capsule Take 1 capsule by mouth once daily for 30 days. Do not start before April 09, 2023. amphetamine-dextroamphetamine XR (ADDERALL XR) 10 mg capsule Take 1 capsule by mouth once daily for 30 days. Do not start before March 10, 2023. fluticasone (FLONASE) 50 mcg/actuation nasal spray Use 2 Sprays in each nostril once daily. Rinse mouth after use. adapalene-benzoyl peroxide 0.3-2.5 % Apply to affected area three times a week. ibuprofen (MOTRIN ORAL) Take 400 mg by mouth as needed. fluconazole (DIFLUCAN) 100 mg tablet Take two tablets (200 mg) by mouth x 1 today, then one tablet daily for six days (Patient not taking: Reported on 04/03/2023) amphetamine-dextroamphetamine XR (ADDERALL XR) 10 mg capsule Take 1 capsule by mouth once daily for 30 days. Do not start before February 08, 2023. No current facility-administered medications for this visit. Objective BP 95/63 Pulse 102 Temp 36.6 C (97.8 F) (Temporal) Resp 16 LMP 12/26/2022 (Within Weeks) Physical Exam Constitutional: General: She is not in acute distress. Appearance: She is not ill-appearing. HENT: Nose: Nose normal. Mouth/Throat: Mouth: Mucous membranes are moist. Tongue: No lesions. Palate: No mass and lesions. Pharynx: Oropharynx is clear. Tonsils: No tonsillar exudate. Comments: Whitish coating of tongue. Pulmonary: Effort: Pulmonary effort is normal. Lymphadenopathy: Cervical: No cervical adenopathy. Neurological: Mental Status: She is alert. Assessment and Plan 1. Oral thrush - ICD9: 112.0, ICD10: B37.0 (primary diagnosis) - SYPHILIS TOTAL W/REFLEX - HIV 1 2 COMBO(AG/AB),WITH REFLEX TO DIFFERENTIATION - HEPATITIS C ANTIBODY IA WITH CONFIRMATION - HEP B SURF AG SCRN - FLUCONAZOLE 200 MG TABLET 2. Acute vaginitis - ICD9: 616.10, ICD10: N76.0 - SYPHILIS TOTAL W/REFLEX - HIV 1 2 COMBO(AG/AB),WITH REFLEX TO DIFFERENTIATION - HEPATITIS C ANTIBODY IA WITH CONFIRMATION - HEP B SURF AG SCRN - FLUCONAZOLE 200 MG TABLET - She was advised to see gynecology if symptoms persist. 3. Screen for STD (sexually transmitted disease) - ICD9: V74.5, ICD10: Z11.3 - SYPHILIS TOTAL W/REFLEX - HIV 1 2 COMBO(AG/AB),WITH REFLEX TO DIFFERENTIATION - HEPATITIS C ANTIBODY IA WITH CONFIRMATION - HEP B SURF AG SCRN Jluis Fritz MD documented in this encounter [facility] 01-31-2023 History of Present illness Narrative Radiology Service Progress Note PATIENT NAME: Johanna LAGUNAN: [id number] DATE OF SERVICE: January 31, 2023 TIME: 1:11 PM PATIENT IDENTITY VERIFICATION COMPLETED USING TWO (2) IDENTIFIERS: Name and Date of confirmed by patient verbally. FALL SCREENING: Has the patient had 2 falls in the last year or 1 fall with injury or currently using an Ambulatory Assistive Device (Walker, Cane, Wheelchair, Crutches, etc.)? No PATIENT GENDER DATA: Female. status: : No status: NO. PATIENT RELEVANT IMPLANT DATA REVIEWED: Yes RADIOLOGY DEPARTMENT: MR; Exam(s) Completed: Spine: Cervical spine PERIPHERAL IV DATA: Not applicable SIGNED BY: RT Ruby(R) January 31, 2023 1:11 PM documented in this encounter [facility] 01-30-2023 History of Present illness Narrative SUBJECTIVE: Influenza Vaccine(1) due on 10/25/2022 Covid-19 Vaccine( season) due on 10/25/2022 HPI Johanna Carver is a 37 year old female. 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 Did not bring a form for her physical, states does not currently have 1. Notes needing tuberculosis screening but not sure which screening is needed. She reports oral and tongue pain recently. She notes urinary urgency frequency and burning. ADHD. Notes Adderall seems to be effective. She is doing well at work on the medication and well at home. No trouble with sleep, appetite suppression or with weight loss related to medication. She uses medication(s) daily 7 days a week consistently. Patient feels medication(s) is making a difference for them. Review of Systems Genitourinary: Positive for dysuria, frequency and urgency. Psychiatric/Behavioral: Positive for decreased concentration. Objective BP 94/74 Pulse 98 Ht 163.2 cm (5' 4.25) Wt 57.8 kg (127 lb 8 oz) LMP 12/26/2022 (Within Weeks) SpO2 99% BMI 21.72 kg/m Physical Exam Vitals and nursing note reviewed. Constitutional: Appearance: Normal appearance. HENT: Head: Normocephalic and atraumatic. Mouth/Throat: Comments: White coating on tongue, no oral sores visualized Eyes: Conjunctiva/sclera: Conjunctivae normal. Neck: Thyroid: No thyromegaly. Vascular: Normal carotid pulses. No JVD. Cardiovascular: Rate and Rhythm: Normal rate and regular rhythm. Pulses: Carotid pulses are 2+ on the right side and 2+ on the left side. Radial pulses are 2+ on the right side and 2+ on the left side. Heart sounds: Normal heart sounds. Pulmonary: Effort: Pulmonary effort is normal. Breath sounds: Normal breath sounds. Abdominal: General: Bowel sounds are normal. Palpations: Abdomen is soft. Musculoskeletal: Right lower leg: No edema. Left lower leg: No edema. Skin: General: Skin is warm and dry. Neurological: Mental Status: She is alert. ALLERGIES Allergen Reactions Doxycycline Hyclate Unknown Foggy/unclear Penicillins Hives Sulfa (Sulfonamide * Swelling Swelling of the tongue fluticasone (FLONASE) 50 mcg/actuation nasal spray Use 2 Sprays in each nostril once daily. Rinse mouth after use. amphetamine-dextroamphetamine XR (ADDERALL XR) 10 mg biphasic capsule Take 1 capsule by mouth once daily for 30 days. Do not start before November 10, 2022. amphetamine-dextroamphetamine XR (ADDERALL XR) 10 mg biphasic capsule Take 1 capsule by mouth once daily for 30 days. Do not start before December 10, 2022. amphetamine-dextroamphetamine XR (ADDERALL XR) 10 mg biphasic capsule Take 1 capsule by mouth once daily for 30 days. Do not start before January 09, 2023. baclofen (LIORESAL) 10 mg tablet 1 tab bid prn for spasms adapalene-benzoyl peroxide 0.3-2.5 % Apply to affected area three times a week. ibuprofen (MOTRIN ORAL) Take 400 mg by mouth as needed. PAST MEDICAL HISTORY Diagnosis Date ADHD (attention deficit hyperactivity disorder) Adjustment disorder with depressed mood was previously on Paxil/effexor, [facility]'ed for weight gain. Anemia Concussion 2016 Depressive disorder, not elsewhere classified Environmental and seasonal allergies Eosinophilic esophagitis 2016 Esophageal dysmotility 02/27/2018 Foot fracture, left 2016 Unspecified symptom associated with female genital organs Pain in the vulvar area Social History Tobacco Use Smoking status: Former Types: Cigarettes Quit date: 12/25/2016 Years since quittin.1 Smokeless tobacco: Never Tobacco comments: A few cigarettes per week. Vaping Use Vaping Use: Never used Substance Use Topics Alcohol use: Yes Comment: seldom Drug use: No ASSESSMENT/PLAN: 1. Routine medical exam - ICD9: V70.0, ICD10: Z00.00 (primary diagnosis) - Endorse healthy diet and regular exercise - Endorse calcium intake with supplements or by diet of 1000 mg/day - BLOOD TB SCREEN - PPD (TB INTRADERMAL 83817) B/O 2. Encounter for immunization - ICD9: V03.89, ICD10: Z23 - INFLUENZA VACCINE, AGE 6 MO - 64 YR, QUADRIVALENT (AFLURIA, FLULAVAL, FLUZONE) 3. Attention deficit disorder, unspecified hyperactivity presence - ICD9: 314.00, ICD10: F98.8 She notes current treatment is effective, continue unchanged for now, continue to monitor, 3-month follow-up - DEXTROAMPHETAMINE-AMPHETAMINE ER 10 MG 24HR CAPSULE,EXTEND RELEASE - DEXTROAMPHETAMINE-AMPHETAMINE ER 10 MG 24HR CAPSULE,EXTEND RELEASE - DEXTROAMPHETAMINE-AMPHETAMINE ER 10 MG 24HR CAPSULE,EXTEND RELEASE 4. Screening for tuberculosis - ICD9: V74.1, ICD10: Z11.1 - BLOOD TB SCREEN - PPD (TB INTRADERMAL 24141) B/O 5. UTI symptoms - ICD9: 788.99, ICD10: R39.9 - UA DIP, URINE (POC) - URINE CULTURE 6. Oral pain - ICD9: 528.9, ICD10: K13.79 - CLOTRIMAZOLE 10 MG REHANA Annita Allred APRN.PARTS COUNTER SALESPERSON documented in this encounter [facility] 01-28-2023 Miscellaneous Notes Spoke with pt and she has appt with her pcp on and will address this with them. Mendy Altamirano LPN I have no appt available, [facility] has some virtual slots we can put her there or she can go to the urgent care. Lena Olguin APRN.FLORI Patient calling c/o discomfort at base of tongue and throat. Think she sees some lesion on back of tongue too. Advised to PCP or urgent care. She is concerned about STD or HPV. She is asking if she can see provider here to have throat swab done since RM did that in the past? Angeles Crowell RN documented in this encounter [facility] 01-14-2023 Miscellaneous Notes Neuro SPINE CARE COORDINATION QUICK NOTE Called patient regarding MRI approval, left voicemail to call the office back. Will send a [id number] message as well. documented in this encounter [facility] 01-14-2023 History of Present illness Narrative Images from the original note were not included. CC: Patient [facility] with: [facility] Johanna Carver is a 37 year old female who presents today for 3 mo f/u. Doing well on 10 mg XR Adderall for ADHD. Used to have more significant issues w/ depression, but no longer complaining this as mood feels stable. Does note that she noticed a difference with different prescriptions-felt like she's had different levels of concentration as the pharmacy had changed their generic formulation. Has had issues with syphilis testing coming back positive x2, but additional testing ended up being nonreactive. Had been sexually active (unprotected) with someone who she thinks could have been with other people. Has had recurrent issues with rash on R scapula. Has read information on lyme disease, and that it can cause false positive syphilis testing. REVIEW OF SYSTEMS See HPI All other systems negative. PAST MEDICAL HISTORY Diagnosis Date ADHD (attention deficit hyperactivity disorder) Adjustment disorder with depressed mood was previously on Paxil/effexor, self ky'ed for weight gain. Anemia Concussion 2016 Depressive disorder, not elsewhere classified Environmental and seasonal allergies Eosinophilic esophagitis 2016 Esophageal dysmotility 02/27/2018 Foot fracture, left 2016 Unspecified symptom associated with female genital organs Pain in the vulvar area PAST SURGICAL HISTORY Procedure Laterality Date CORRECT BUNION,SIMPLE 2006 right EGD 1 or 2 times yearly REDUCTION OF LARGE BREAST 10/05/2008 Bilateral, uncomplciated RPR 1ST INGUN HRNA FULL TERM INFT <6 MO RDC ALLERGIES Doxycycline Hyclate, Penicillins, and Sulfa (Sulfonamide Antibiotics) MEDICATIONS fluticasone (FLONASE) 50 mcg/actuation nasal spray Use 2 Sprays in each nostril once daily. Rinse mouth after use. amphetamine-dextroamphetamine XR (ADDERALL XR) 10 mg biphasic capsule Take 1 capsule by mouth once daily for 30 days. Do not start before November 10, 2022. amphetamine-dextroamphetamine XR (ADDERALL XR) 10 mg biphasic capsule Take 1 capsule by mouth once daily for 30 days. Do not start before December 10, 2022. amphetamine-dextroamphetamine XR (ADDERALL XR) 10 mg biphasic capsule Take 1 capsule by mouth once daily for 30 days. Do not start before January 09, 2023. baclofen (LIORESAL) 10 mg tablet 1 tab bid prn for spasms adapalene-benzoyl peroxide 0.3-2.5 % Apply to affected area three times a week. ibuprofen (MOTRIN ORAL) Take 400 mg by mouth as needed. FAMILY HISTORY Problem Relation Age of Onset Psychiatry Mother post depression Ischemic Heart Disease Maternal Grandfather Heart Paternal Grandmother Pacemaker Cancer Paternal Grandmother Ischemic Heart Disease Paternal Grandfather Social History Tobacco Use Smoking status: Former Types: Cigarettes Quit date: 12/25/2016 Years since quittin.0 Smokeless tobacco: Never Tobacco comments: A few cigarettes per week. Vaping Use Vaping Use: Never used Substance Use Topics Alcohol use: Yes Comment: seldom Drug use: No PHYSICAL EXAM BP 120/56 (BP Site: Left Arm, BP Position: Sitting, BP Cuff Size: Large Adult) Pulse 105 Temp (!) 35.8 C (96.5 F) Ht 162.6 cm (5' 4) LMP 12/26/2022 (Within Weeks) SpO2 100% BMI 23.34 kg/m Physical Exam Constitutional: General: She is awake. Appearance: Normal appearance. She is well-developed. HENT: Head: Normocephalic and atraumatic. Mouth/Throat: Mouth: Mucous membranes are moist. Eyes: General: No scleral icterus. Conjunctiva/sclera: Conjunctivae normal. Neck: Trachea: Trachea normal. Cardiovascular: Rate and Rhythm: Normal rate and regular rhythm. Heart sounds: No murmur heard. Pulmonary: Effort: Pulmonary effort is normal. Breath sounds: Normal breath sounds. No decreased breath sounds, wheezing, rhonchi or rales. Abdominal: General: Bowel sounds are normal. Palpations: Abdomen is soft. Tenderness: There is no abdominal tenderness. Musculoskeletal: Right lower leg: No edema. Left lower leg: No edema. Skin: General: Skin is warm and dry. Comments: Excoriations noted R scapula Neurological: General: No focal deficit present. Mental Status: She is alert. Psychiatric: Mood and Affect: Mood and affect normal. Behavior: Behavior is cooperative. ASSESSMENT/PLAN: 1. Attention deficit disorder, unspecified hyperactivity presence - ICD9: 314.00, ICD10: F98.8 (primary diagnosis) Doing well on current regimen--Adderall XR 10 mg biphasic capsule once daily Patient will submit request when due for refills 2. Rash - ICD9: 782.1, ICD10: R21 Recurrent itchy rash right shoulder. Does not appear to be consistent with Lyme disease manifestations, but pt is requesting Lyme disease testing due to false positive syphilis testing - LYME DISEASE BY PCR Prescription instructions reviewed with patient as applicable. Potential red flag symptoms discussed with the patient. Reviewed appropriate action plan to take if red flag symptoms occur. Patient agreeable to treatment plan. Suzi Rodriguez PA-C documented in this encounter [facility] 12-31-2022 History of Present illness Narrative Subjective HPI HPI Johanna Carver is a 37 year old female who presents today for CC of cough, congestion, sinus pressure, st. This started 2 days ago. Has tried otc medication for relief. Symptoms are worsened by nothing. No known sick exposures. Nonsmoker. Denies possibility of being . .Patient presents with: Sinus Problem: sinus pressure, drainage, cough, loss of voice and sore throat x 2 days PAST MEDICAL HISTORY Diagnosis Date Adjustment disorder with depressed mood was previously on Paxil/effexor, self ky'ed for weight gain. Anemia Concussion 2016 Depressive disorder, not elsewhere classified Environmental and seasonal allergies Eosinophilic esophagitis 2016 Esophageal dysmotility 02/27/2018 Foot fracture, left 2016 Unspecified symptom associated with female genital organs Pain in the vulvar area PAST SURGICAL HISTORY Procedure Laterality Date CORRECT BUNION,SIMPLE 2006 right EGD 1 or 2 times yearly REDUCTION OF LARGE BREAST 10/05/2008 Bilateral, uncomplciated RPR 1ST INGUN HRNA FULL TERM INFT <6 MO RDC ALLERGIES Doxycycline Hyclate, Penicillins, and Sulfa (Sulfonamide Antibiotics) MEDICATIONS fluticasone (FLONASE) 50 mcg/actuation nasal spray Use 2 Sprays in each nostril once daily. Rinse mouth after use. amphetamine-dextroamphetamine XR (ADDERALL XR) 10 mg biphasic capsule Take 1 capsule by mouth once daily for 30 days. Do not start before December 10, 2022. baclofen (LIORESAL) 10 mg tablet 1 tab bid prn for spasms adapalene-benzoyl peroxide 0.3-2.5 % Apply to affected area three times a week. ibuprofen (MOTRIN ORAL) Take 400 mg by mouth as needed. amphetamine-dextroamphetamine XR (ADDERALL XR) 10 mg biphasic capsule Take 1 capsule by mouth once daily for 30 days. Do not start before November 10, 2022. [START ON 01/09/2023] amphetamine-dextroamphetamine XR (ADDERALL XR) 10 mg biphasic capsule Take 1 capsule by mouth once daily for 30 days. Do not start before January 09, 2023. FAMILY HISTORY Problem Relation Age of Onset Psychiatry Mother post depression Ischemic Heart Disease Maternal Grandfather Heart Paternal Grandmother Pacemaker Cancer Paternal Grandmother Ischemic Heart Disease Paternal Grandfather Social History Tobacco Use Smoking status: Former Types: Cigarettes Quit date: 12/25/2016 Years since quittin.0 Smokeless tobacco: Never Tobacco comments: A few cigarettes per week. Vaping Use Vaping Use: Never used Substance Use Topics Alcohol use: Yes Comment: seldom Drug use: No Review of Systems Constitutional: Negative for fever. HENT: Positive for congestion and sore throat. Negative for ear pain and nosebleeds. Respiratory: Positive for cough. Negative for shortness of breath and wheezing. Musculoskeletal: Negative for neck pain. Objective Blood pressure 102/66, pulse 88, temperature 37.1 C (98.7 F), resp. rate 16, last menstrual period 10/01/2022, SpO2 98 %. Physical Exam Constitutional: General: She is not in acute distress. Appearance: She is not toxic-appearing or diaphoretic. HENT: Head: Normocephalic and atraumatic. Right Ear: Hearing, tympanic membrane, ear canal and external ear normal. Left Ear: Hearing, tympanic membrane, ear canal and external ear normal. Nose: Nose normal. Mouth/Throat: Pharynx: Uvula midline. No pharyngeal swelling, oropharyngeal exudate, posterior oropharyngeal erythema or uvula swelling. Eyes: General: Lids are normal. No scleral icterus. Right eye: No discharge. Left eye: No discharge. Conjunctiva/sclera: Conjunctivae normal. Pupils: Pupils are equal, round, and reactive to light. Neck: Trachea: Trachea normal. Cardiovascular: Rate and Rhythm: Normal rate and regular rhythm. Heart sounds: Normal heart sounds. Pulmonary: Effort: Pulmonary effort is normal. Breath sounds: Normal breath sounds. Musculoskeletal: Cervical back: Normal range of motion and neck supple. Lymphadenopathy: Cervical: No cervical adenopathy. Right cervical: No superficial cervical adenopathy. Left cervical: No superficial cervical adenopathy. Skin: Findings: No rash. Neurological: Mental Status: She is alert and oriented to person, place, and time. ASSESSMENT/PLAN: 1. URI, acute - ICD9: 465.9, ICD10: J06.9 (primary diagnosis) - Discussed viral etiology and rationale for treatment. - Symptomatic treatment with prn analgesia - Supportive care with fluids and rest - Follow up in 3-5 days if symptoms persist or sooner if worsening of symptoms - COVID & INFLUENZA A/B & RSV NAAT, ROUTINE - COVID NAAT, UPPER RESPIRATORY, ROUTINE - ROUTINE FLU A/B + RSV 2. Sore throat - ICD9: 462, ICD10: J02.9 - suspect viral - Group A strep molecular testing negative - Contagious dz precautions discussed- including considered contagious until on antibiotics for 24 hours - STREP A MOLECULAR (POC) Billy Lynch APRN.ENGINE TEST CELL TECHNICIAN documented in this encounter [facility] 12-05-2022 Miscellaneous Notes Called patient left vm regarding her appt Patient currently see neuro and spine Dr. Godfrey is pain mgmt. Left office number to call. documented in this encounter [facility] 11-26-2022 Miscellaneous Notes Spoke to patient gave MD's information and instructions. She verbalized understanding. Patient explained had brain injury (has memory issues). I advised would have the schedulers call her to discuss appointment options. She verbalized understanding. Sent staff message. got it. not sure either. ok to add on to wait list since i saw her mostly for back, leg pain, ok to see first available spine also for her neck pain Neuro SPINE CARE COORDINATION QUICK NOTE Spoke to patient said she did see Sue Mehta on Friday and Dr. Bush. They were confused on why they were seeing her. She is just getting frustrated. Her back is not hurting as much. 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 It is the neck pain that is really bothering her. She is having this shooting pain on the right side. It is on the side of her jaw, side of her face, down her neck. She can't sleep. Pain will shoot down her right arm. Will have numbness/tingling of the ring and middle fingers. It was really bothering her on Friday and Friday. She slept on Friday. Today it is better. Pain level is a 4. She is going to go work out because that helps. She is using heat/patches/baclofen. Does not have appointment with you until 12/27. What can she do until than? Neuro SPINE CARE COORDINATION QUICK NOTE Returned pts call. Continuous ring with no vegetable picker. Keira Wong RN Frozen Yogurt Maker Pt called; asking to speak to RN; states baclofen is not working and appt w/Dr. Rothman is not until 12/25/22. Please call to advise; ph: [phone] documented in this encounter [facility] 10-25-2022 Miscellaneous Notes The following approved medication requests have been transmitted electronically. Requested Prescriptions Signed Prescriptions Disp Refills baclofen 10 mg tablet 40 tablet 0 Sig: Take 1 tablet by mouth BID as needed for spasms Authorizing Provider: SERA MARTÍNEZ MD Spoke to patient she is wanting a refill on Baclofen and had to cancel her appointment but could not get back in until December. Advised I did look at Dr. Rothman's schedule and he does not have anything sooner but would forward to schedulers to add her to cancellation list. She verbalized understanding. Forwarding to covering provider. Patient is returning call from the nurse. Call back # [phone] Left message on voicemail for patient to call office back. Patient is calling in with questions about medication, she wouldn't state anything else. Ph. [phone] documented in this encounter [facility] 10-17-2022 History of Present illness Narrative Johanna Carver is a 37 year old female who presents for STD testing HPI: Patient presents today for STD testing. She denies any vaginal discharge or known exposure. OB History T0 L2 SAB0 IAB0 Ectopic0 Multiple0 Live Births0 Bed Manager History LMP: 10/01/2022 (Within Days), Having periods Age at Menarche: Age at First : Age at Menopause: Bed Manager History Comments: Sexual Activity: Yes; Male Contraception: Condom PAST MEDICAL HISTORY Diagnosis Date Adjustment disorder with depressed mood was previously on Paxil/effexor, self ky'ed for weight gain. Anemia Concussion 2016 Depressive disorder, not elsewhere classified Environmental and seasonal allergies Eosinophilic esophagitis 2016 Esophageal dysmotility 02/27/2018 Foot fracture, left 2016 Unspecified symptom associated with female genital organs Pain in the vulvar area PAST SURGICAL HISTORY Procedure Laterality Date CORRECT BUNION,SIMPLE 2006 right EGD 1 or 2 times yearly REDUCTION OF LARGE BREAST 10/05/2008 Bilateral, uncomplciated RPR 1ST INGUN HRNA FULL TERM INFT <6 MO RDC FAMILY HISTORY Problem Relation Age of Onset Psychiatry Mother post depression Ischemic Heart Disease Maternal Grandfather Heart Paternal Grandmother Pacemaker Cancer Paternal Grandmother Ischemic Heart Disease Paternal Grandfather Social History Tobacco Use Smoking status: Former Types: Cigarettes Quit date: 12/25/2016 Years since quittin.8 Smokeless tobacco: Never Tobacco comments: A few cigarettes per week. Vaping Use Vaping Use: Never used Substance Use Topics Alcohol use: Yes Comment: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 etc.)? No PATIENT GENDER DATA: Female. status: : No status: NO. PATIENT RELEVANT IMPLANT DATA REVIEWED: Not Applicable RADIOLOGY DEPARTMENT: Ultrasound PERIPHERAL IV DATA: Not applicable SIGNED BY: Betsy Teixeira RDMS [facility] May 02, 2022 4:29 PM documented in this encounter [facility] 05-02-2022 History of Present illness Narrative Johanna Carver is a 36 year old female who presents with the complaint of aching pelvic pain for 1 weeks. Pain is Left . Currently having any pain? Yes She has also been bleeding for 3 weeks Postmenopausal? No. Menstrual cycle every 25-30 days Flow 4-5 days Heavy bleeding? No Intermenstrual spotting? No Post-coital bleeding? No History of fibroids? No Dysmenorrhea? Yes PMDD? No Concern for exposure to STDs? No Dysuria, urinary frequency or urgency? No Recent weight change? Yes Contraception: condoms PAST MEDICAL HISTORY Diagnosis Date Adjustment disorder with depressed mood was previously on Paxil[facility]fe[facility], [facility]. Anemia Concussion 2016 Depressive disorder, not elsewhere classified Environmental and seasonal allergies Eosinophilic esophagitis 2016 Esophageal dysmotility 02/27/2018 Foot fracture, left 2016 Unspecified symptom associated with female genital organs Pain in the vulvar area PAST SURGICAL HISTORY Procedure Laterality Date CORRECT BUNION,SIMPLE 2005 right EGD 1 or 2 times yearly REDUCTION OF LARGE BREAST 10/05/2008 Bilateral, uncomplciated RPR 1ST INGUN HRNA FULL TERM INFT <6 MO RDC FAMILY HISTORY Problem Relation Age of Onset Psychiatry Mother post depression Ischemic Heart Disease Maternal Grandfather Heart Paternal Grandmother Pacemaker Cancer Paternal Grandmother Ischemic Heart Disease Paternal Grandfather Social History Tobacco Use Smoking status: Former Types: Cigarettes Quit date: 12/25/2016 Years since quittin.3 Smokeless tobacco: Never Tobacco comments: A few cigarettes per week. Vaping Use Vaping Use: Never used Substance Use Topics Alcohol use: Yes Comment: seldom Drug use: No Wt 120 lb (54.4 kg) LMP (LMP Unknown) BMI 20.60 kg/m GENERAL: pleasant, female in no apparent distress HEENT: Normocephalic, atraumatic, and no lesions CHEST: Normal inspiratory effort ABDOMEN: soft, no masses, and Moderate tenderness in LLQ PELVIC: external genitalia normal, normal Bartholin's glands, urethra, [place]'s glands, no vulvar lesions, no cervical lesions, good vaginal support, physiologic discharge present, normal appearing perineal body and perianal region BIMANUAL: uterus normal size, shape and consistency, no adnexal masses, non-tender, and Moderate tenderness RECTOVAGINAL: deferred. NEURO: alert and oriented x3,exam grossly non-focal EXTREMITIES: normal ASSESSMENT/PLAN: 1. Rapid weight loss - ICD9: 783.21, ICD10: R63.4 (primary diagnosis) - CONSULT TO ENDOCRINOLOGY 2. Pelvic pain in female - ICD9: 625.9, ICD10: R10.2 - US FEMALE PELVIS TRANSVAG -Will notify pt of results 3. Irregular menstrual cycle - ICD9: 626.4, ICD10: N92.6 - Aygestin taper Lena Olguin APRN.CNP Medical Decision Making: Problems: Moderate: New problem with uncertain prognosis Data: Unique test(s) ordered: 1 Risk: Low: Low risk from testing/treatment Moderate: Drug management Medical Decision Making Level: 4 - Moderate documented in this encounter [facility] 05-01-2022 Miscellaneous Notes Pt called in asking about lost phone circular stuffer. Let her know it would be at check in desk in . documented in this encounter [facility] 04-29-2022 Miscellaneous Notes Patient notified and requested an appointment to discuss prior to taking medication. Patient states that she wants to make sure her cervix is ok Please let her know that I sent in a Aygestin taper for her. Let her know to needs to complete the taper for the best results and when she is finished she could have a period, this is normal. Lena Olguin APRN.FLORI Patient had appointment 04/05/2022 with Tamela Olguin and called stating that she started her menses 04/10/2022 with a heavy flow for a week. Pt. 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 Only has to change her pad a a few times a day d/t the flow. Denies pelvic pain. Patient does not take any hormones currently. Patient asking if she needs an appointment or if a med can be prescribed to stop the bleeding documented in this encounter [facility] 04-23-2022 Miscellaneous Notes Patient notified of below results/recommendations, verbalized understanding. Loree Carrasco LPN ----- Message from Gaby Solis MD sent at 04/23/2022 8:11 AM EST ----- Your A1c is 5.0 which means you are not diabetic. Your TSH is where it always has been over the past 3 years and your free T4 is what it was in the past 12 months ago. So there is stability in your thyroid results and not suggestive of anything going on documented in this encounter [facility] 04-10-2022 History of Present illness Narrative Reason for Visit Patient presents with: Follow Up Johanna Carver is a 36 year old female who presents here today for Above Complaints.. Health Maintenance COVID-19 VACCINE(4 - Booster for Moderna series) PAP TESTING HPV TESTING HPI Patient is concerned about high blood sugars. She had readings that were 102, fasting 8 to 10 hours later. Mother is daibetic and patient is obviously concerned about it. She does not really eat much of any sugars, cut it out from her diet for health reasons. Her diet is mostly, meat , eggs, spinach, ramen made from rice, carbs are coming from source. She drinks coconut milk, eats a lot of beef jerky, eats lots of vegetables and eggs, potatoes. Patient notes she is not eating something in between meals etc. Patient does not do yogurt , does not do gluten or dairy Eats a lot of beans. She has lost a little weight and is concerned about it. Patient likes to drink a lot of coffe with creamer. She does exercise Friday , Friday or Friday and it is black . No problem-specific Assessment & Plan notes found for this encounter. PAST MEDICAL HISTORY Diagnosis Date Adjustment disorder with depressed mood was previously on Paxil/effexor, self ky'ed for weight gain. Anemia Concussion 2016 Depressive disorder, not elsewhere classified Environmental and seasonal allergies Eosinophilic esophagitis 2016 Esophageal dysmotility 02/27/2018 Foot fracture, left 2016 Unspecified symptom associated with female genital organs Pain in the vulvar area PAST SURGICAL HISTORY Procedure Laterality Date CORRECT BUNION,SIMPLE 2006 right EGD 1 or 2 times yearly REDUCTION OF LARGE BREAST 10/05/2008 Bilateral, uncomplciated RPR 1ST INGUN HRNA FULL TERM INFT <6 MO RDC FAMILY HISTORY Problem Relation Age of Onset Psychiatry Mother post depression Ischemic Heart Disease Maternal Grandfather Heart Paternal Grandmother Pacemaker Cancer Paternal Grandmother Ischemic Heart Disease Paternal Grandfather Social History Tobacco Use Smoking status: Former Types: Cigarettes Quit date: 12/25/2016 Years since quittin.2 Smokeless tobacco: Never Tobacco comments: A few cigarettes per week. Vaping Use Vaping Use: Never used Substance Use Topics Alcohol use: Yes Comment: seldom Drug use: No Past medical history, appointments, medications, allergies reviewed. Pertinent Lab/Diagnostic Studies are reviewed and discussed today Current Outpatient Medications: baclofen (LIORESAL) 10 mg tablet adapalene-benzoyl peroxide 0.3-2.5 % pantoprazole DR (PROTONIX) 20 mg tablet fluticasone (FLONASE) 50 mcg/actuation nasal spray clobetasol (TEMOVATE) 0.05 % ointment ibuprofen (MOTRIN ORAL) acetaminophen (TYLENOL) 325 mg tablet Review of Systems CONSTITUTIONAL: No fevers, chills night sweats, unintended weight loss CARDIOVASCULAR: No chest pain, dyspnea, palpitations, orthopnea, PND, ankle edema. PULM: No dyspnea, unexplained cough. GI: No dysphagia/odynophagia, problematic reflux, constipation, diarrhea, changes in stool habits, hematochezia, melena. : No new urinary complaints, including dysuria, gross hematuria or pyuria. NEURO: No new balance problems, peripheral weakness/paresthesias or numbness of concern. Physical Exam BP 110/68 (BP Site: Left Arm, BP Position: Sitting, BP Cuff Size: Large Adult) Pulse 83 Temp 36.9 C (98.5 F) Resp 12 Ht 162.6 cm (5' 4) Wt 57.2 kg (126 lb) LMP (LMP Unknown) SpO2 97% BMI 21.63 kg/m General appearance: Well appearing, alert, in no acute distress, well nourished. Skin: Skin color, texture, turgor normal, no suspicious rashes or lesions Head: Normocephalic, no masses, lesions, tenderness or abnormalities Eyes: Anicteric sclera. Pupils are equally round and reactive to light. Extraocular movements are intact. Lungs: Lungs clear to auscultation. No wheezing, rhonchi, rales Heart: RRR without murmur, gallop, or rubs. Extremities: No deformities, edema, skin discoloration, clubbing or cyanosis. Good capillary refill. ASSESSMENT/PLAN: 1. Weight loss - ICD9: 783.21, ICD10: R63.4 (primary diagnosis) - TSH BLD - T4 FREE/FREE THYROX - T3 FREE BLD 2. Elevated blood sugar - ICD9: 790.29, ICD10: R73.9 - HGB A1C Gaby Solis MD documented in this encounter [facility] 02-28-2022 History of Present illness Narrative here for baclofen refills relates some more increase spine pain unclear if baclofen still helping discuss other options for injections, OM etc we agreed to get her in for inperson reevaluation 1month refill baclofen given documented in this encounter [facility] 02-28-2022 Nurse Note Left message on identified VM . Let him/her know I am calling for chart update prior to virtual visit. I told them I have more questions than what is on check in and I will call again before visit. Indu Wu LPN She sees a chiropractor who adjusts her pelvis - feels she has a leg length discrepancy. Indu Wu LPN AMB ROOMING INTAKE FLOWSHEET DATA Pain - Neck pain and back pain. Neck pain radiates back to trapezius and left fingers - all 5 fingers. Low back pain is bilateral. Pain radiates to buttocks bilaterally and down her right leg posterior to her knee. Pain Level: 5 Pain Location: Neck-Posterior Description: Tightness, Pressure, Sharp Duration Amount of Time: 5 Duration Units: Years Frequency: Continuous Intervention/Comfort measure: Medication, Reposition, Relaxation, Heat, Exercise Comments: Traction for neck. She went to PT for pelvic floor therapy and low back. She does her exercises at home. She does them 3 times per week. She has not had injections and is not interested. She is using the baclofen and motrin for pain. Indu Wu LPN documented in this encounter [facility] 01-23-2022 History of Present illness Narrative Reason for Visit Patient presents with: Physical Johanna Carver is a 36 year old female who presents here today for CPE. Health Maintenance COVID-19 VACCINE(4 - Booster for Moderna series) INFLUENZA(1) HPI Diet- gluten and dairy free, eats less fruits, eats less eggs and onions, eats less almonds. Jerky for snack. She has rice pasta Morning occasionally oatmeal and boiled eggs, hash brown. Lunch is usually a sandwich, a couple eggs again, some spinach, tomatoes. Dinner is eggs, refried beans, sometimes he has a chicken or chicken breast. Roasted butter nut squash, tacos, gluten free tortillas. Sleep- she does not think she sleeps well, she is not getting deep sleep. Stress- patient does not have much stress, feels proud she has a job, feels like she gets respect. 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 Has been going to Physical Therapy for months for some injury to the arm, she was given injection in the backs recently. Patient is leaking some times for over active bladder. Patient was asked to drink more water and eat more fiber. Her kids are doing well. Patient was bit by a tick. She was given doxyhyclate 2 pills from her previous prescription. She showed tick to the urgent care doc who looked at it and reassured that it was not a lyme disease tick. There is no rash. Has dermatitis of the lower abdominal skin. No problem-specific Assessment & Plan notes found for this encounter. PAST MEDICAL HISTORY Diagnosis Date Adjustment disorder with depressed mood was previously on Paxil/effexor, [facility] for weight gain. Anemia Concussion 2016 Depressive disorder, not elsewhere classified Environmental and seasonal allergies Eosinophilic esophagitis 2016 Esophageal dysmotility 02/27/2018 Foot fracture, left 2016 Unspecified symptom associated with female genital organs Pain in the vulvar area PAST SURGICAL HISTORY Procedure Laterality Date CORRECT BUNION,SIMPLE 2006 right EGD 1 or 2 times yearly REDUCTION OF LARGE BREAST 10/05/2008 Bilateral, uncomplciated RPR 1ST INGUN HRNA FULL TERM INFT <6 MO RDC FAMILY HISTORY Problem Relation Age of Onset Psychiatry Mother post depression Ischemic Heart Disease Maternal Grandfather Heart Paternal Grandmother Pacemaker Cancer Paternal Grandmother Ischemic Heart Disease Paternal Grandfather Social History Tobacco Use Smoking status: Former Types: Cigarettes Quit date: 12/25/2016 Years since quittin.0 Smokeless tobacco: Never Tobacco comments: A few cigarettes per week. Vaping Use Vaping Use: Never used Substance Use Topics Alcohol use: Yes Comment: seldom Drug use: No Past medical history, appointments, medications, allergies reviewed. Pertinent Lab/Diagnostic Studies are reviewed and discussed today Current Outpatient Medications: baclofen (LIORESAL) 10 mg tablet spironolactone (ALDACTONE) [address] (PROTONIX) 20 mg tablet fluticasone (FLONASE) 50 mcg/actuation nasal spray escitalopram oxalate (LEXAPRO) 10 mg tablet clobetasol (TEMOVATE) 0.05 % ointment ibuprofen (MOTRIN ORAL) acetaminophen (TYLENOL) 325 mg tablet Review of Systems CONSTITUTIONAL: No fevers, chills, nightsweats, unintended weight loss HEENT: Denies frequent or severe heaches, nasal congestion/sinus symptoms, problematic allergy problems. EYES: No diplopia or blurry vision. CARDIOVASCULAR: No chest pain, dyspnea, palpitations, orthopnea, PND, ankle edema. PULM: No dyspnea, unexplained cough. GI: No dysphagia/odynophagia, problematic reflux, constipation, diarrhea, changes in stool habits, hematochezia, melena. : No new urinary complaints, including dysuria, gross hematuria or pyuria. NEURO: No new balance problems, peripheral weakness/paresthesias or numbness of concern. MUSC-SKEL: No new joint pain, swelling, or erythema. PSY: No concerns regarding depression, anxiety or panic. INTEGUMENTARY: No new skin changes (rash, new or changing mole, new growth) Physical Exam BP 114/60 (BP Site: Left Arm, BP Position: Sitting, BP Cuff Size: Large Adult) Pulse 85 Resp 12 Ht 162.6 cm (5' 4) Wt 61.2 kg (135 lb) LMP 12/27/2021 (Approximate) SpO2 95% BMI 23.17 kg/m General appearance: Well appearing, alert, in no acute distress, well-hydrated, well nourished. Skin: Skin color, texture, turgor normal, no suspicious rashes or lesions Head: Normocephalic, no masses, lesions, tenderness or abnormalities Eyes: Anicteric sclera. Pupils are equally round and reactive to light. Extraocular movements are intact. Ears: External ears normal, canals clear Nose/Sinuses: Nares normal, septum midline, mucosa normal, no drainage or sinus tenderness Oropharynx: Lips, mucosa, and tongue normal, teeth and gums normal, oropharynx normal Neck: Supple, no adenopathy; thyroid symmetric, normal size, no bruits Back: Normal exam Lungs: Lungs clear to auscultation. No wheezing, rhonchi, rales Heart: RRR without murmur, gallop, or rubs. No ectopy Abdomen: Normal abdominal exam, Abdomen soft, non-tender. Bowel sounds normal. No masses, organomegaly Extremities: No deformities, edema, skin discoloration, clubbing or cyanosis. Good capillary refill. Musculoskeletal: No joint swelling, deformity, or tenderness Peripheral pulses: Normal Neuro: Gait normal. Reflexes normal and symmetric. Sensation grossly intact. ASSESSMENT/PLAN: 1. Annual physical exam - ICD9: V70.0, ICD10: Z00.00 - Counseled on healthy diet and regular exercise - Calcium intake with supplements or by diet of 1000 mg/day for under 50, 3740-4203 mg/day for 50+ Gaby Solis MD documented in this encounter [facility] 12-31-2021 History of Present illness Narrative Johanna is a 36 year old who presents for an annual gynecologic exam without complaints. Menses: cycles every 25-30 days and 4-5 days of flow. Contraception: none HPV vaccine: Yes Last Pap: 09/11/2017 normal HPV: 09/09/2017 negative History of abnormal pap: Yes Last mammogram: 2019normal Sexually active: not currently OB History T0 L2 SAB0 IAB0 Ectopic0 Multiple0 Live Births0 Bed Manager History LMP: 12/27/2021 (Approximate), Having periods Age at Menarche: Age at First : Age at Menopause: Bed Manager History Comments: Sexual Activity: Yes; Male Contraception: Condom PAST MEDICAL HISTORY Diagnosis Date Adjustment disorder with depressed mood was previously on Paxil/effexor, self ky'ed for weight gain. Anemia Concussion 2016 Depressive disorder, not elsewhere classified Environmental and seasonal allergies Eosinophilic esophagitis 2016 Esophageal dysmotility 02/27/2018 Foot fracture, left 2016 Unspecified symptom associated with female genital organs Pain in the vulvar area PAST SURGICAL HISTORY Procedure Laterality Date CORRECT BUNION,SIMPLE 2006 right EGD 1 or 2 times yearly REDUCTION OF LARGE BREAST 10/05/2008 Bilateral, uncomplciated RPR 1ST INGUN HRNA FULL TERM INFT <6 MO RDC FAMILY HISTORY Problem Relation Age of Onset Psychiatry Mother post depression Ischemic Heart Disease Maternal Grandfather Heart Paternal Grandmother Pacemaker Cancer Paternal Grandmother Ischemic Heart Disease Paternal Grandfather SOCIAL HISTORY Social History Tobacco Use Smoking status: Former Types: Cigarettes Quit date: 12/25/2016 Years since quittin.0 Smokeless tobacco: Never Tobacco comments: A few cigarettes per week. Vaping Use Vaping Use: Never used Substance Use Topics Alcohol use: Yes Comment: seldom Drug use: No REVIEW OF SYSTEMS Abdomen: No abdominal pain, nausea, vomiting, diarrhea, or constipation. No bloating, early satiety, indigestion, or increased flatulence. Bladder: No dysuria, gross hematuria, urinary frequency, urinary urgency, or incontinence. Breast: No breast lumps, nipple d/c, overlying skin changes, redness or skin retraction. Allergies and current medication updated:Yes EXAM: Ht 5' 4 (1.63m) Wt 0 lb (0.0kg) LMP 12/27/2021 GENERAL: pleasant, female in no apparent distress HEENT: Normocephalic, atraumatic, and no lesions NECK: Supple, full range of motion, no adenopathy, and thyroid normal DERMATOLOGY: Normal, without lesions, non-icteric, and non-hirsute BREAST: soft, non-tender, symmetric, no dominant mass, normal nipple-areolar complex, no lymphadenopathy, and no nipple discharge CHEST: Normal inspiratory effort ABDOMEN: soft, non-tender, and no masses PELVIC: external genitalia normal, normal Bartholin's glands, urethra, [place]'s glands, no vulvar lesions, no cervical lesions, good vaginal support, physiologic discharge present, normal appearing perineal body and perianal region BIMANUAL: uterus normal size, shape and consistency, no adnexal masses, and non-tender RECTOVAGINAL: deferred. NEURO: alert and oriented x3,exam grossly non-focal EXTREMITIES: normal ASSESSMENT/PLAN: 1) Health maintenance: Pap/HPV up to date. Nutrition, exercise and routine health maintenance exams reviewed. HPV vaccine: completed series 2) Contraception: none. Contraceptive options reviewed and information provided. 3) STD screening: Declined STD check. 4) Follow up one year or sooner as needed Lena Olguin APRN.ENGINE TEST CELL TECHNICIAN documented in this encounter [facility] 12-25-2021 History of Present illness Narrative Images from the original note were not included. Subjective HPI HPI Johanna Carver is a 36 year old female who presents today for CC of tick on right knee, removed this AM easily with fingers. Still has tick, alive. No rash at site. Was not attached before went to bed last night. .Patient presents with: tick bite right knee: Noticed it first this am PAST MEDICAL HISTORY Diagnosis Date Adjustment disorder with depressed mood was previously on Paxil/effexor, [facility] for weight gain. Anemia Concussion 2016 Depressive disorder, not elsewhere classified Environmental and seasonal allergies Eosinophilic esophagitis 2016 Esophageal dysmotility 02/27/2018 Foot fracture, left 2016 Unspecified symptom associated with female genital organs Pain in the vulvar area PAST SURGICAL HISTORY Procedure Laterality Date CORRECT BUNION,SIMPLE 2006 right EGD 1 or 2 times yearly REDUCTION OF LARGE BREAST 10/05/2008 Bilateral, uncomplciated RPR 1ST INGUN HRNA FULL TERM INFT <6 MO RDC ALLERGIES Doxycycline Hyclate, Penicillins, and Sulfa (Sulfonamide Antibiotics) MEDICATIONS baclofen (LIORESAL) 10 mg tablet 1 tab bid prn for spasms spironolactone (ALDACTONE) 50 mg tablet Take 0.5 tablets by mouth once daily. pantoprazole DR (PROTONIX) 20 mg tablet Take 1 tablet by mouth daily before breakfast. Take on empty stomach, 1/2 hr before meal. fluticasone (FLONASE) 50 mcg/actuation nasal spray Use 2 Sprays in each nostril once daily. Rinse mouth after use. escitalopram oxalate (LEXAPRO) 10 mg tablet Take 1 tablet by mouth once daily. clobetasol (TEMOVATE) 0.05 % ointment Apply to affected areas as needed. ibuprofen (MOTRIN ORAL) Take by mouth. acetaminophen (TYLENOL) 325 mg tablet Take 325 mg by mouth. FAMILY HISTORY Problem Relation Age of Onset Psychiatry Mother post depression Ischemic Heart Disease Maternal Grandfather Heart Paternal Grandmother Pacemaker Cancer Paternal Grandmother Ischemic Heart Disease Paternal Grandfather Social History Tobacco Use Smoking status: Former Types: Cigarettes Quit date: 12/25/2016 Years since quittin.0 Smokeless tobacco: Never Tobacco comments: A few cigarettes per week. Vaping Use Vaping Use: Never used Substance Use Topics Alcohol use: Yes Comment: seldom Drug use: No ROS Objective Blood pressure 110/78, pulse 83, temperature 36.2 C (97.1 F), temperature source Tympanic, resp. rate 16, weight 60.8 kg (134 lb), last menstrual period 11/02/2021, SpO2 100 %. Physical Exam Constitutional: General: She is not in acute distress. Appearance: She is not toxic-appearing or diaphoretic. HENT: Head: Normocephalic and atraumatic. Pulmonary: Effort: Pulmonary effort is normal. No accessory muscle usage or respiratory distress. Musculoskeletal: Legs: Neurological: Mental Status: She is alert and oriented to person, place, and time. ASSESSMENT/PLAN: 1. Tick bite of right lower leg, initial encounter - ICD9: 916.4, E906.4, ICD10: S80.861A, W57.XXXA Attached less than 12 hours Tick retained by patient in case complication should arise Watch site for infection, return if s/s occur. S/s lyme discussed/return if occur. Billy Lynch APRN.FLORI documented in this encounter [facility] 11-30-2021 History of Present illness Narrative Audiologist offered: Patient declines. Johanna Carver is a 36 year old female who presents for vaginal pruritis for 1 month(s). Vaginal discharge: scant amount and thick. Itching: Some Dyspareunia: N/A Fever/chills: No Abdominal pain: No Bladder: Negative for dysuria or frequency Bowel: No blood in stool, pain with BM, tarry stool, persistent diarrhea or constipation Any new sexual partners or concern for STD exposure: No Are you currently taking any medications to treat vaginitis: No Do you use feminine sprays, douches or deodorants: No Past medical, surgical, social history, medications and allergies reviewed and updated. OBJECTIVE: LMP 10/01/2021 GENERAL: Well developed, well nourished in no apparent distress PELVIC: external genitalia normal, normal Bartholin's glands, urethra, [place]'s glands, no vulvar lesions, no cervical lesions, good vaginal support, physiologic discharge present, normal appearing perineal body and perianal region BIMANUAL: uterus normal size, shape and consistency, no adnexal masses, non-tender, and no cervical motion tenderness. RECTOVAGINAL: deferred. ASSESSMENT/PLAN: 1. Vaginal irritation - ICD9: 623.9, ICD10: N89.8 (primary diagnosis) - TEZ / TRICHOMONAS AMPLIFICATION - BACTERIAL VAGINOSIS AMPLIFICATION 2. Screen for STD (sexually transmitted disease) - ICD9: V74.5, ICD10: Z11.3 - GC/CHLAMYDIA DNA DET Patient is currently on second round of Cipro for a tooth abscess so I ordered Monistat half an applicator nightly until she finishes the antibiotic as prophylactic treatment. Lena Olguin APRN.CNP Medical Decision Making: Problems: Low: Acute, uncomplicated illness or injury Data: Unique test(s) ordered: 2 Risk: Low: Low risk from testing/treatment Moderate: Drug management Medical Decision Making Level: 3 - Low documented in this encounter [facility] 11-28-2021 Miscellaneous Notes Called and spoke with patient. Confirmed with Dr Jacky Griggs's MA that appt was not cancelled. Message was left on her VM that appt would be inappropriate if related to shoulder injury but if having headaches or migraines, ok to keep the appt. and was told to call with any questions. Patient did not show Patient stated that she also received a call yesterday and spoke with someone re. her appt. No documentation. Indu was off. Unsure who spoke with patient. If call occurred, she was not told to cancel Pt upset, and does not wish to follow up in [place] office. Has rescheduled with NEURO at [facility]. Appt note for today said left shoulder injury/trimgenial neuralgia and she said that was not the reason. Her future appt at [facility] states the appt is for numbness. Patient would not let me continue to speak or further investigate for the true nature of her need for evaluation in Neuro and hung up the phone. Pt calling in regards to appointment scheduled today with Dr. Rico. Pt states she was called today regarding appointment by a Nurse in the office. Per Pt this Nurse had questions for Pt on reasoning for coming in today for appointment. Pt unable to recall Nurses name Pt stated she communicated with Nurse this was referred by PCP due to on going headaches for 6 months. Per Pt The nurse stated this appointment is unnecessary. Pt is upset. Reviewed chart and previous encounters. No telephone encounters seen from today with a Nurse. Advised Pt, It does not look like this appointment was cancelled today with Dr. Rico. Pt stated She was told there is no reason to come so she didn't come' Pt unsure if it was actually cancelled Advised Pt I am unaware of what happened but will transfer Pt to scheduling to schedule another appointment Pt verbalized understanding and would like a return call with an update for the reasoning of this incident documented in this encounter [facility] 11-28-2021 Miscellaneous Notes Phoned patient and left VM asking what reason was for coming to see DR Rico. It stated she was coming in for shoulder pain due to an accident. I left message that if she was coming for a migraine or headache then that was fine but if it was for shoulder pain that she was scheduled in error. documented in this encounter [facility] 10-30-2021 History of Present illness Narrative Johanna Carver is a 36 year old female who presents for problem visit burning with urination and pelvic cramping. HPI: 10 day history of burning with urination. Pt masturbated using vibrator and coconut oil and then began with symptoms. When she ate spicy food several days ago, burning worsened. Heat only temporarily effective. Feels like UTI. Feels like previous mycoplasma infection. Using antifungal troches for mouth yeast and this has helped her symptoms a little. Last sexually active in 03/2021. STD panel negative a few months ago. OB History T0 L2 SAB0 IAB0 Ectopic0 Multiple0 Live Births0 Bed Manager History LMP: 08/06/2021 (Exact Date), Having periods Age at Menarche: Age at First : Age at Menopause: Bed Manager History Comments: Sexual Activity: Yes; Male Contraception: Condom PAST MEDICAL HISTORY Diagnosis Date Adjustment disorder with depressed mood was previously on Paxil/effexor, self dc'ed for weight gain. Anemia Concussion 2016 Depressive disorder, not elsewhere classified Environmental and seasonal allergies Eosinophilic esophagitis 2016 Esophageal dysmotility 02/27/2018 Foot fracture, left 2016 Unspecified symptom associated with female genital organs Pain in the vulvar area PAST SURGICAL HISTORY Procedure Laterality Date CORRECT BUNION,SIMPLE 2005 right EGD 1 or 2 times yearly REDUCTION OF LARGE BREAST 10/05/2008 Bilateral, uncomplciated RPR 1ST INGUN HRNA FULL TERM INFT <6 MO RDC FAMILY HISTORY Problem Relation Age of Onset Psychiatry Mother post depression Ischemic Heart Disease Maternal Grandfather Heart Paternal Grandmother Pacemaker Cancer Paternal Grandmother Ischemic Heart Disease Paternal Grandfather Social History Tobacco Use Smoking status: Former Types: Cigarettes Quit date: 12/25/2016 Years since quittin.8 Smokeless tobacco: Never Tobacco comments: A few cigarettes per week. Vaping Use Vaping Use: Never used Substance Use Topics Alcohol use: Yes Comment: seldom Drug use: No Current Outpatient Medications Medication Sig baclofen (LIORESAL) 10 mg tablet 1 tab bid prn for spasms spironolactone (ALDACTONE) 50 mg tablet Take 0.5 tablets by mouth once daily. pantoprazole DR (PROTONIX) 20 mg tablet Take 1 tablet by mouth daily before breakfast. Take on empty stomach, 1/2 hr before meal. fluticasone (FLONASE) 50 mcg/actuation nasal spray Use 2 Sprays in each nostril once daily. Rinse mouth after use. escitalopram oxalate (LEXAPRO) 10 mg tablet Take 1 tablet by mouth once daily. buPROPion XL (WELLBUTRIN XL) 300 mg 24 hr tablet Take 1 tablet by mouth once daily. predniSONE (DELTASONE) 20 mg tablet Take 1 tablet by mouth once daily. (Patient not taking: Reported on 10/13/2021) doxycycline monohydrate 100 mg tablet Take 1 tablet by mouth twice daily. clobetasol (TEMOVATE) 0.05 % ointment Apply to affected areas as needed. ibuprofen (MOTRIN ORAL) Take by mouth. Multivitamin capsule Take 1 capsule by mouth once daily. calcium carbonate (CALCIUM 500 ORAL) Take by mouth. acetaminophen (TYLENOL) 325 mg tablet Take 325 mg by mouth. No current facility-administered medications for this visit. Allergies As of Date: 10/30/2021 Allergen Noted Reaction DOXYCYCLINE HYCLATE 06/30/2017 Unknown PENICILLINS 10/03/2005 Hives SULFA (SULFONAMIDE ANTIBIOTICS) 05/31/2019 Swelling Fully Assessed 10/13/2021 REVIEW OF SYSTEMS Abdomen: No bloating, early satiety, indigestion, or increased flatulence. No abdominal pain, nausea, vomiting, diarrhea, or constipation. Bladder: see HPI. Allergies and current medication updated:Yes EXAM: BP 100/70 Wt 0 lb (0.0kg) LMP 08/06/2021 GENERAL: pleasant, female in no apparent distress CHEST: Normal inspiratory effort PELVIC: external genitalia normal, normal Bartholin's glands, urethra, [place]'s glands, no vulvar lesions, no cervical lesions, good vaginal support, physiologic discharge present, normal appearing perineal body and perianal region BIMANUAL: uterus normal size, shape and consistency, no adnexal masses, and Mild tenderness left adnexa NEURO: alert and oriented x3,exam grossly non-focal ASSESSMENT/PLAN: 1. Dysuria - ICD9: 788.1, ICD10: R30.0 (primary diagnosis) - pt states feels like UTI caused by mycoplasma in the past - UA positive for trace kell esterase - Send urine for culture - Patient education for prevention given - URINE CULTURE - UROGENITAL UR/MYCOPLASMA PCR 2. Pelvic cramping - ICD9: 625.9, ICD10: R10.2 - TEZ / TRICHOMONAS AMPLIFICATION - BACTERIAL VAGINOSIS AMPLIFICATION - Negative STD testing July and October 2021, no SI in past 7 months. Will notify of results. Follow- up as needed. Perla Anaya APRN.FLORI I spent a total of 20 minutes on the date of the service which included preparing to see the patient, [id number] patient care, completing clinical documentation, obtaining and/or reviewing separately obtained history, performing a medically appropriate examination, counseling and educating the patient/family/caregiver, and ordering medications, tests, or procedures. documented in this encounter [facility] 10-26-2021 History of Present illness Narrative Reason for Visit Patient presents with: F/U 6 months: possible UTI Johanna Carver is a 36 year old female who presents here today for Above Complaints.. Health Maintenance INFLUENZA(1) HPI Burning of the urethra in the noted she had been treated for this in the past with doxy for ureaplasma urelyticum. She will make an appointment. She will be seeing Dr rei lynch, for acne Adhd eval: She does not think she makes too many careless mistakes. She has difficulty sustaining attention, drinks a lot of coffee to keep awake Talks out of turn. She has 3 calenders to keep organized. Has a hard time being organized. She does not loose things . Very forget, She is distracted easily and has focus issues but she also has intrusive thoughts. When she was a kid she was very quiet and did not think she had trouble with focusing. After her accident she did not do very well. She could have more anxiety than add. She is preoccupied with thoughts all the day Her reflux is controlled with the ppi. No problem-specific Assessment & Plan notes found for this encounter. PAST MEDICAL HISTORY Diagnosis Date Adjustment disorder with depressed mood was previously on Paxil/effexor, self ky'ed for weight gain. Anemia Concussion 2016 Depressive disorder, not elsewhere classified Environmental and seasonal allergies Eosinophilic esophagitis 2016 Esophageal dysmotility 02/27/2018 Foot fracture, left 2016 Unspecified symptom associated with female genital organs Pain in the vulvar area PAST SURGICAL HISTORY Procedure Laterality Date CORRECT BUNION,SIMPLE 2006 right EGD 1 or 2 times yearly REDUCTION OF LARGE BREAST 10/05/2008 Bilateral, uncomplciated RPR 1ST INGUN HRNA FULL TERM INFT <6 MO RDC FAMILY HISTORY Problem Relation Age of Onset Psychiatry Mother post depression Ischemic Heart Disease Maternal Grandfather Heart Paternal Grandmother Pacemaker Cancer Paternal Grandmother Ischemic Heart Disease Paternal Grandfather Social History Tobacco Use Smoking status: Former Types: Cigarettes Quit date: 12/25/2016 Years since quittin.8 Smokeless tobacco: Never Tobacco comments: A few cigarettes per week. Vaping Use Vaping Use: Never used Substance Use Topics Alcohol use: Yes Comment: seldom Drug use: No Past medical history, appointments, medications, allergies reviewed. Pertinent Lab/Diagnostic Studies are reviewed and discussed today Current Outpatient Medications: buPROPion XL (WELLBUTRIN XL) 300 mg 24 hr tablet predniSONE (DELTASONE) 20 mg tablet spironolactone (ALDACTONE) 50 mg tablet baclofen (LIORESAL) [address] (PROTONIX) 20 mg tablet doxycycline monohydrate 100 mg tablet fluticasone (FLONASE) 50 mcg/actuation nasal spray clobetasol (TEMOVATE) 0.05 % ointment ibuprofen (MOTRIN ORAL) Multivitamin capsule calcium carbonate (CALCIUM 500 ORAL) acetaminophen (TYLENOL) 325 mg tablet Review of Systems CONSTITUTIONAL: No fevers, chills night sweats, unintended weight loss CARDIOVASCULAR: No chest pain, dyspnea, palpitations, orthopnea, PND, ankle edema. PULM: No dyspnea, unexplained cough. GI: No dysphagia/odynophagia, problematic reflux, constipation, diarrhea, changes in stool habits, hematochezia, melena. : No new urinary complaints, including dysuria, gross hematuria or pyuria. NEURO: No new balance problems, peripheral weakness/paresthesias or numbness of concern. Physical Exam BP 110/60 (BP Site: Left Arm, BP Position: Sitting, BP Cuff Size: Regular Adult) Pulse 106 Temp 36.7 C (98 F) Resp 12 Ht 162.6 cm (5' 4) Wt 60.8 kg (134 lb) LMP 08/06/2021 (Exact Date) SpO2 95% BMI 23.00 kg/m General appearance: Well appearing, alert, in no acute distress, well nourished. Skin: Skin color, texture, turgor normal, no suspicious rashes or lesions Head: Normocephalic, no masses, lesions, tenderness or abnormalities Eyes: Anicteric sclera. Pupils are equally round and reactive to light. Extraocular movements are intact. Lungs: Lungs clear to auscultation. No wheezing, rhonchi, rales Heart: RRR without murmur, gallop, or rubs. Extremities: No deformities, edema, skin discoloration, clubbing or cyanosis. Good capillary refill. 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 - HERPES SIMPLEX TYPE 1 AND 2 IG - HERPES SIMPLEX IGM AB 2. Gastroesophageal reflux disease without esophagitis - ICD9: 530.81, ICD10: K21.9 - PANTOPRAZOLE 20 MG TABLET,DELAYED RELEASE 3. Acne, unspecified acne type - ICD9: 706.1, ICD10: L70.9 Cont - SPIRONOLACTONE 50 MG TABLET 4. Anxiety - ICD9: 300.00, ICD10: F41.9 More anxiety than adhd , will start treatment for anxiety on her - ESCITALOPRAM 10 MG TABLET Gaby Solis MD documented in this encounter [facility] 10-04-2021 Miscellaneous Notes Patient notified Please let know that all her STD testing is negative. False + syphilis, confirmatory testing negative. Lena Olguin APRN.FLORI documented in this encounter [facility] 10-03-2021 Miscellaneous Notes Further discussed in mychart encounter. Antoinette Anthony APRN.CNP Spoke with patient, will address ADHD at upcoming appointment, patient would like a short dose of steroid or extension of clotrimazole if you feel needed? Please let patient know she needs evaluated for diagnosis of ADHD prior to a possibility of adderall prescription which we discussed at her recent appointment. Does she want to do this prior to her follow-up with Dr. Solis? Since I just saw her we can easily do a virtual visit. Also, we can try a short burst of steroid, but she needs to know this can make her thrush longer to resolve. Thank you Antoinette Anthony APRN.CNP Patient calling with two requests: She states she had OV with Antoinette Anthony this past Friday on 10/01/21. (She has an appt with Dr. Solis on 10/26 as a follow-up.) She states she will be scheduling a Neurology appt to hopefully find the cause of the decreased sensation to her right cheek. Asking in the mean time if Antoinette would be agreeable to ordering her prednisone or something to help with the facial numbness? She wonders if prednisone would help-? Please advise. Patient states her pharmacy informed her that she needs refill of her wellbutrin XL 300 mg. (Script pended). Patient asking if she can try wellbutrin 150 mg and add Adderall instead? Explained to pt that this may be something that may need discussed further at appt with Dr. Solis on 10/26. Please advise if pt should continue 300 mg and update pt which dose was sent to pharmacy. Thank you. documented in this encounter [facility] 10-01-2021 History of Present illness Narrative CC: Patient presents with: Folliculitis: Medication follow up HPI Johanna Carver is a 36 year old female who presents today for concern of increased neck pain, decreased sensation to right cheek, and difficulty focusing. Has multiple other concerns as well but ones stated are most concerning to patient at this time. Has had issues focusing and with short term memory loss since head injury 2016. Been on Wellbutrin since 2017 which used to help her focus but has recently gotten a job and noticed she is having difficulty focusing. Coffee helps with this but has been having stomach issues and wants to decrease her intake of this. Has never had formal evaluation for this. Reports that she has had right side cheek with decreased sensation and numbness since having neck cupping completed last week. Since then has had neck traction through physical therapy which feels it helped improve slightly. Also feels like she has tightness to her jaw for this. Recent right shoulder injury at work in June, [facility] and awaiting an MRI for further evaluation. Denies any injury to her neck at that time but has noticed an increase in her chronic neck pain since injury and states she now has noticed it on her left side of neck as well. Has been going to physical therapy in [place] for years for neck pain. Denies any recent neck injury, change in chronic headaches, vision changes, hearing changes. Daughter has thrush and patient concerned because they drink after each other. Has noticed a change in taste and tongue feels leathery which makes her concerned she has this as well. REVIEW OF SYSTEMS General: no fevers, no chills, no night sweats, no recurrent infections, no change in appetite, no change in energy, and no significant changes in weight HEENT: See HPI Neck: no lumps, no pain , and no swelling Neurologic: No headache, weakness outside of left shoulder, , dizziness, syncope. PAST MEDICAL HISTORY Diagnosis Date Adjustment disorder with depressed mood was previously on Paxil/effexor, self ky'ed for weight gain. Anemia Concussion 2016 Depressive disorder, not elsewhere classified Environmental and seasonal allergies Eosinophilic esophagitis 2016 Esophageal dysmotility 02/27/2018 Foot fracture, left 2016 Unspecified symptom associated with female genital organs Pain in the vulvar area PAST SURGICAL HISTORY Procedure Laterality Date CORRECT BUNION,SIMPLE 2006 right EGD 1 or 2 times yearly REDUCTION OF LARGE BREAST 10/05/2008 Bilateral, uncomplciated RPR 1ST INGUN HRNA FULL TERM INFT <6 MO RDC ALLERGIES Doxycycline Hyclate, Penicillins, and Sulfa (Sulfonamide Antibiotics) MEDICATIONS baclofen (LIORESAL) 10 mg tablet 1 tab bid prn for spasms pantoprazole DR (PROTONIX) 20 mg tablet Take 1 tablet by mouth daily before breakfast. Take on empty stomach, 1/2 hr before meal. buPROPion XL (WELLBUTRIN XL) 300 mg 24 hr tablet TAKE 1 TABLET BY MOUTH EVERY DAY ibuprofen (MOTRIN ORAL) Take by mouth. spironolactone (ALDACTONE) 50 mg tablet Take 50 mg by mouth once daily. doxycycline monohydrate 100 mg tablet Take 1 tablet by mouth twice daily. fluticasone (FLONASE) 50 mcg/actuation nasal spray Use 2 Sprays in each nostril once daily. Rinse mouth after use. clobetasol (TEMOVATE) 0.05 % ointment Apply to affected areas as needed. Multivitamin capsule Take 1 capsule by mouth once daily. calcium carbonate (CALCIUM 500 ORAL) Take by mouth. acetaminophen (TYLENOL) 325 mg tablet Take 325 mg by mouth. FAMILY HISTORY Problem Relation Age of Onset Psychiatry Mother post depression Ischemic Heart Disease Maternal Grandfather Heart Paternal Grandmother Pacemaker Cancer Paternal Grandmother Ischemic Heart Disease Paternal Grandfather Social History Tobacco Use Smoking status: Former Types: Cigarettes Quit date: 12/25/2016 Years since quittin.7 Smokeless tobacco: Never Tobacco comments: A few cigarettes per week. Vaping Use Vaping Use: Never used Substance Use Topics Alcohol use: Yes Comment: seldom Drug use: No PHYSICAL EXAM BP 118/72 Pulse 80 Resp 16 LMP 08/06/2021 (Exact Date) General Appearance: well appearing, in no acute distress, alert Pysch: mood and affect broad and appropriate Skin: Skin color, texture, turgor normal for age; Head: normocephalic, atraumatic, no facial abnormality. Eyes: PERRLA, conjunctiva pink and moist, no icterus, sclera white, non-injected Nose/sinus: Nares normal. Septum midline. Mucosa normal. No drainage. Oropharynx: lips normal without lesions, gums healthy, palate normal, tongue midline. soft palate, uvula, and tonsils not visualized. Tongue brown in color from drinking coffee recently. Lymph nodes: No cervical lymphadenopathy and No supraclavicular lymphadenopathy Lungs: Lungs clear to auscultation. No wheezing, rhonchi, rales. Heart: RRR without murmur, gallop, or rubs. No ectopy Extremities: No deformities, edema, skin discoloration, clubbing or cyanosis. Good capillary refill. Neurological: Gait normal. Reflexes normal and symmetric. Sensation grossly intact., speech normal, mental status intact, muscle tone normal, muscle strength normal, normal facial expressions and movement. reported decreased sensation to right maxillary region. No popping or abnormality to TMJ when opening and closing jaw. Health maintenance reviewed with patient: INFLUENZA(1) due on 10/25/2021 PAP TESTING due on 09/04/2022 HPV TESTING due on 09/04/2022 DTAP,TDAP,TD(7 - Td or Tdap) due on 08/24/2025 HEPATITIS B Completed HEPATITIS C SCREENING Completed HIV SCREENING Completed COVID-19 VACCINE Completed DATA REVIEWED: No new labs ASSESSMENT/PLAN: 1. Inattention - ICD9: 799.51, ICD10: R41.840 (primary diagnosis) - possible ADD by her description, will have her return in 2 weeks to do further evaluation of this 2. Neck pain - ICD9: 723.1, ICD10: M54.2 Possibly tense muscles as a result to left shoulder injury but will xray to make sure no changes from previous - XR CERV GENERAL 2V AP/LAT 3. Decreased sensation - ICD9: 782.0, ICD10: R20.8 - unsure on cause of this to her right cheek. Possible issue to trigeminal nerve or other cause - CONSULT TO NEUROLOGY 4. Thrush - ICD9: 112.0, ICD10: B37.0 - clotrimazole troches as prescribed. Prescription instructions reviewed with patient as applicable. Potential red flag symptoms discussed with the patient. Reviewed appropriate action plan to take if red flag symptoms occur. Patient agreeable to treatment plan. Antoinette Anthony APRN.FLORI documented in this encounter [facility] 08-13-2021 History of Present illness Narrative Johanna Carver is a 36 year old female who presents for problem visit Vaginal pain for 1 day. HPI: pt states that her partner was using his fingers and after she notice some pain and spotting when wiping. She just wants to make sure that everything is ok. OB History T0 L2 SAB0 IAB0 Ectopic0 Multiple0 Live Births0 Bed Manager History LMP: 12/21/2020 (LMP Unknown), Having periods Age at Menarche: Age at First : Age at Menopause: Bed Manager History Comments: Sexual Activity: Yes; Male Contraception: Condom PAST MEDICAL HISTORY Diagnosis Date Adjustment disorder with depressed mood was previously on Paxil/effexor, self ky'ed for weight gain. Anemia Concussion 2016 Depressive disorder, not elsewhere classified Environmental and seasonal allergies Eosinophilic esophagitis 2016 Esophageal dysmotility 02/27/2018 Foot fracture, left 2016 Unspecified symptom associated with female genital organs Pain in the vulvar area PAST SURGICAL HISTORY Procedure Laterality Date CORRECT BUNION,SIMPLE 2005 right EGD 1 or 2 times yearly REDUCTION OF LARGE BREAST 10/05/2008 Bilateral, uncomplciated RPR 1ST INGUN HRNA FULL TERM INFT <6 MO RDC FAMILY HISTORY Problem Relation Age of Onset Psychiatry Mother post depression Ischemic Heart Disease Maternal Grandfather Heart Paternal Grandmother Pacemaker Cancer Paternal Grandmother Ischemic Heart Disease Paternal Grandfather Social History Tobacco Use Smoking status: Former Smoker Types: Cigarettes Quit date: 12/25/2016 Years since quittin.6 Smokeless tobacco: Never Used Tobacco comment: A few cigarettes per week. Vaping Use Vaping Use: Never used Substance Use Topics Alcohol use: Yes Comment: seldom Drug use: No Current Outpatient Medications Medication Sig baclofen (LIORESAL) 10 mg tablet 1 tab bid prn for spasms pantoprazole DR (PROTONIX) 20 mg tablet Take 1 tablet by mouth daily before breakfast. Take on empty stomach, 1/2 hr before meal. doxycycline monohydrate 100 mg tablet Take 1 tablet by mouth twice daily. buPROPion XL (WELLBUTRIN XL) 300 mg 24 hr tablet TAKE 1 TABLET BY MOUTH EVERY DAY fluticasone (FLONASE) 50 mcg/actuation nasal spray Use 2 Sprays in each nostril once daily. Rinse mouth after use. clobetasol (TEMOVATE) 0.05 % ointment Apply to affected areas as needed. ibuprofen (MOTRIN ORAL) Take by mouth. Multivitamin capsule Take 1 capsule by mouth once daily. calcium carbonate (CALCIUM 500 ORAL) Take by mouth. acetaminophen (TYLENOL) 325 mg tablet Take 325 mg by mouth. No current facility-administered medications for this visit. Allergies As of Date: 08/13/2021 Allergen Noted Reaction DOXYCYCLINE HYCLATE 06/30/2017 Unknown PENICILLINS 10/03/2005 Hives SULFA (SULFONAMIDE ANTIBIOTICS) 05/31/2019 Swelling Fully Assessed 08/03/2021 REVIEW OF SYSTEMS Bladder: Slight dysuria Expanded ROS: N/A Allergies and current medication updated:Yes EXAM: LMP 12/21/2020 GENERAL: pleasant, female in no apparent distress HEENT: Normocephalic, atraumatic, mucus membranes moist and no lesions CHEST: Normal inspiratory effort PELVIC: external genitalia normal, normal Bartholin's glands, urethra, [place]'s glands, no vulvar lesions, no cervical lesions, good vaginal support, physiologic discharge present, normal appearing perineal body and perianal region, + few vaginal abrasion w/ a scant amount of blood noted NEURO: alert and oriented x3,exam grossly non-focal EXTREMITIES: normal ASSESSMENT/PLAN: 1. Abrasion of vagina, initial encounter - ICD9: 911.0, ICD10: S30.814A - monitor bleeding - Follow up as needed Lena Olguin APRN.CNP Medical Decision Making: Problems: Low: Acute, uncomplicated illness or injury Risk: Low: Low risk from testing/treatment Medical Decision Making Level: 3 - Low documented in this encounter [facility] 08-08-2021 History of Present illness Narrative Reason for Visit Patient presents with: Same Day Appointment: left shoulder, and chest discomfort since friday Johanna Carver is a 36 year old female who presents here today for Above Complaints.. Health Maintenance There are no preventive care reminders to display for this patient. HPI In 2018 the patient fell over and hurt L4 and L5 and she is on baclofen since then. She can take it 2 times a day. She has been taking it at least 2/3 times a day with the recent shoulder injury. Patient had been put on doxy for acne, but had more stomach issues with it and was suggested to stop the medication. She is sensitive to dairy and gluten as it gives her heart burn. She is here because she has some pain in the. Patient has pain in the chest since Friday. She does not think it is related to gerd. No problem-specific Assessment & Plan notes found for this encounter. PAST MEDICAL HISTORY Diagnosis Date Adjustment disorder with depressed mood was previously on Paxil/effexor, self ky'ed for weight gain. Anemia Concussion 2016 Depressive disorder, not elsewhere classified Environmental and seasonal allergies Eosinophilic esophagitis 2016 Esophageal dysmotility 02/27/2018 Foot fracture, left 2016 Unspecified symptom associated with female genital organs Pain in the vulvar area PAST SURGICAL HISTORY Procedure Laterality Date CORRECT BUNION,SIMPLE 2006 right EGD 1 or 2 times yearly REDUCTION OF LARGE BREAST 10/05/2008 Bilateral, uncomplciated RPR 1ST INGUN HRNA FULL TERM INFT <6 MO RDC FAMILY HISTORY Problem Relation Age of Onset Psychiatry Mother post depression Ischemic Heart Disease Maternal Grandfather Heart Paternal Grandmother Pacemaker Cancer Paternal Grandmother Ischemic Heart Disease Paternal Grandfather Social History Tobacco Use Smoking status: Former Smoker Types: Cigarettes Quit date: 12/25/2016 Years since quittin.6 Smokeless tobacco: Never Used Tobacco comment: A few cigarettes per week. Vaping Use Vaping Use: Never used Substance Use Topics Alcohol use: Yes Comment: seldom Drug use: No Past medical history, appointments, medications, allergies reviewed. Pertinent Lab/Diagnostic Studies are reviewed and discussed today Current Outpatient Medications: doxycycline monohydrate 100 mg tablet buPROPion XL (WELLBUTRIN XL) 300 mg 24 hr tablet fluticasone (FLONASE) 50 mcg/actuation nasal spray clobetasol (TEMOVATE) 0.05 % ointment baclofen (LIORESAL) 10 mg tablet ibuprofen (MOTRIN ORAL) Multivitamin capsule calcium carbonate (CALCIUM 500 ORAL) acetaminophen (TYLENOL) 325 mg tablet Review of Systems CONSTITUTIONAL: No fevers, chills night sweats, unintended weight loss CARDIOVASCULAR: No chest pain, dyspnea, palpitations, orthopnea, PND, ankle edema. PULM: No dyspnea, unexplained cough. GI: No dysphagia/odynophagia, problematic reflux, constipation, diarrhea, changes in stool habits, hematochezia, melena. : No new urinary complaints, including dysuria, gross hematuria or pyuria. NEURO: No new balance problems, peripheral weakness/paresthesias or numbness of concern. Physical Exam BP 114/60 (BP Site: Left Arm, BP Position: Sitting, BP Cuff Size: Regular Adult) Pulse 115 Temp 36.8 C (98.2 F) Resp 12 Ht 162.6 cm (5' 4) LMP 12/21/2020 (LMP Unknown) SpO2 98% BMI 26.61 kg/m General appearance: Well appearing, alert, in no acute distress, well nourished. Skin: Skin color, texture, turgor normal, no suspicious rashes or lesions Head: Normocephalic, no masses, lesions, tenderness or abnormalities Eyes: Anicteric sclera. Pupils are equally round and reactive to light. Extraocular movements are intact. Lungs: Lungs clear to auscultation. No wheezing, rhonchi, rales Heart: RRR without murmur, gallop, or rubs. Extremities: No deformities, edema, skin discoloration, clubbing or cyanosis. Good capillary refill. ASSESSMENT/PLAN: 1. Other chest pain - ICD9: 786.59, ICD10: R07.89 (primary diagnosis) Atypical chest pain, symptoms are not consistent with cardiac ischemia due to localization of the pain possible etiology include Costochondritis/chest wall pain - ECG COMPLETE 2. Gastroesophageal reflux disease without esophagitis - ICD9: 530.81, ICD10: K21.9 - Discussed lifestyle modifications including limiting caffeine, no meals three hours before sleep and head of bed elevation Start the protonix. Went over the side effect profile for the drug with the patient, mentioned every one of it , discussed appropriate concerns , alternatives and benefits of the drug, Gaby Solis MD documented in this encounter [facility] 08-03-2021 History of Present illness Narrative Johanna Carver is a 36 year old female who presents for STD testing HPI: Pt is in a new relationship and would to have STD testing done before being sexually active. OB History T0 L2 SAB0 IAB0 Ectopic0 Multiple0 Live Births0 Bed Manager History LMP: 12/21/2020 (LMP Unknown), Having periods Age at Menarche: Age at First : Age at Menopause: Bed Manager History Comments: Sexual Activity: Yes; Male Contraception: Condom PAST MEDICAL HISTORY Diagnosis Date Adjustment disorder with depressed mood was previously on Paxil/effexor, self dc'ed for weight gain. Anemia Concussion 2016 Depressive disorder, not elsewhere classified Environmental and seasonal allergies Eosinophilic esophagitis 2016 Esophageal dysmotility 02/27/2018 Foot fracture, left 2016 Unspecified symptom associated with female genital organs Pain in the vulvar area PAST SURGICAL HISTORY Procedure Laterality Date CORRECT BUNION,SIMPLE 2006 right EGD 1 or 2 times yearly REDUCTION OF LARGE BREAST 10/05/2008 Bilateral, uncomplciated RPR 1ST INGUN HRNA FULL TERM INFT <6 MO RDC FAMILY HISTORY Problem Relation Age of Onset Psychiatry Mother post depression Ischemic Heart Disease Maternal Grandfather Heart Paternal Grandmother Pacemaker Cancer Paternal Grandmother Ischemic Heart Disease Paternal Grandfather Social History Tobacco Use Smoking status: Former Smoker Types: Cigarettes Quit date: 12/25/2016 Years since quittin.6 Smokeless tobacco: Never Used Tobacco comment: A few cigarettes per week. Vaping Use Vaping Use: Never used Substance Use Topics Alcohol use: Yes Comment: seldom Drug use: No Current Outpatient Medications Medication Sig doxycycline monohydrate 100 mg tablet Take 1 tablet by mouth twice daily. buPROPion XL (WELLBUTRIN XL) 300 mg 24 hr tablet TAKE 1 TABLET BY MOUTH EVERY DAY fluticasone (FLONASE) 50 mcg/actuation nasal spray Use 2 Sprays in each nostril once daily. Rinse mouth after use. clobetasol (TEMOVATE) 0.05 % ointment Apply to affected areas as needed. baclofen (LIORESAL) 10 mg tablet 1 tab bid prn for spasms ibuprofen (MOTRIN ORAL) Take by mouth. Multivitamin capsule Take 1 capsule by mouth once daily. calcium carbonate (CALCIUM 500 ORAL) Take by mouth. acetaminophen (TYLENOL) 325 mg tablet Take 325 mg by mouth. No current facility-administered medications for this visit. Allergies As of Date: 08/03/2021 Allergen Noted Reaction DOXYCYCLINE HYCLATE 06/30/2017 Unknown PENICILLINS 10/03/2005 Hives SULFA (SULFONAMIDE ANTIBIOTICS) 05/31/2019 Swelling Fully Assessed 08/03/2021 REVIEW OF SYSTEMS Abdomen: No bloating, early satiety, indigestion, or increased flatulence. No abdominal pain, nausea, vomiting, diarrhea, or constipation. Bladder: No dysuria, gross hematuria, urinary frequency, urinary urgency, or incontinence. Expanded ROS: N/A Allergies and current medication updated:Yes EXAM: BP 110/72 LMP 12/21/2020 GENERAL: pleasant, female in no apparent distress HEENT: Normocephalic, atraumatic, mucus membranes moist and no lesions CHEST: Normal inspiratory effort PELVIC: external genitalia normal, normal Bartholin's glands, urethra, [place]'s glands, no vulvar lesions, no cervical lesions, good vaginal support, physiologic discharge present, normal appearing perineal body and perianal region BIMANUAL: deferred NEURO: alert and oriented x3,exam grossly non-focal EXTREMITIES: normal ASSESSMENT/PLAN: 1. Screen for STD (sexually transmitted disease) - ICD9: V74.5, ICD10: Z11.3 - SYPHILIS TOTAL W/REFLEX - HEP B SURF AG SCRN - HCV QUANT RNA BY PCR - HIV 1 2 COMBO(AG/AB),WITH REFLEX TO DIFFERENTIATION - GC/CHLAMYDIA DNA DET - TRICHOMONAS PREP/ANTIGEN Lena Olguin APRN.CNP Medical Decision Making: Problems: Minimal: Self-limited or minor problem Data: Unique test(s) ordered: 3+ Risk: Low: Low risk from testing/treatment Medical Decision Making Level: 3 - Low documented in this encounter [facility] 06-13-2021 Note [facility] Medical Records Department [address] [place] [address] History Physical Exam 06/13/21 0632 MR#: [id number] Acct: [id number] Name: JOHANNA CARVER Rep #: [id number] : 1985 36 From: Lowell Friend DO PCP: Gaby Solis MD Status:[facility] Location: [place] [address] History and Physical Date of Admission: 06/13/21 35 F who presents to the office today for management of eosinophilic esophagitis and abdominal pain. Multiple. She attributes multiple secondary to food allergies and possibly secondary to use of esophagitis. She was tried on pantoprazole therapy but it her joints hurt so she did not take the medicine. Most of her symptoms are bloating and abdominal pain. She does not have much gas or nausea. She has tried reducing her specific foods and has undergone allergy testing in the past. She was notified of having a milk allergy and also a environmental allergy to roaches. 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 She previously saw entry level mechanical engineer for EOE with dysphagia diagnosed 2015. She does not want to take PPI. She avoids triggers with food avoidance. Has eliminated dairy and gluten from her diet. Would like to see about getting an allergen panel done. XR fluoro esophagus performed 02/2018 noted luminal narrowing around C6-T1. Mild esophageal dysmotility identified. There is adequate clearance of the esophagus with a second instructed swallow. ED visit 03/31/19 for abdominal pain suprapubic and left flank. History of EOE. Short-term memory impaired due to previous brain injury. CT abd/pel 03/31/19 with partially cystic left adnexa which may be better assessed with pelvic sonogram. [facility] Musculoskeletal: Positive for back pain Exam Const General: cooperative and comfortable Nutritional Appearance: average body habitus and well nourished HENMI Head: normal to inspection Ears: hearing grossly normal bilaterally Nose: external nose normal Face and sinus: normal facial exam Mouth: oral mucosae normal Throat: posterior oropharynx normal Eyes General: appearance normal, both eyes and all related structures Neck Neck: normal visual inspection Chest Chest palpation inspection: normal inspection of the chest and normal palpation of entire chest wall Resp Effort Inspection: normal respiratory effort Auscultation: Bilateral: Clear to Auscultation Cardio Palpation: normal PMI Rate: regular rate Rhythm: regular rhythm GI Inspection: normal to inspection Auscultation: normal bowel sounds Percussion: normal to percussion Palpation: no hepatosplenomegaly Skin General: no rashes or lesions noted Neuro General: patient alert Extrem General: normal to inspection Psych Affect: normal affect Quality Reporting Tobacco Screening ([facility] 138) Smoking Status: Never smoker Assessment and Plan Assessment and Plan (1) Eosinophilic esophagitis: Status: Acute Orders: Orders: CPK Total, Creatine Kinase Today CRP Today Erythrocyte Sed Rate Today Angiotensin Convert Enzyme Today ANCA Today Celiac Disease Profile Today Immunoglobulin E Today Immunoglobulin G Today Immunoglobulin M Today Allergen, Rast Food Profile Today LDH Today Plan - Dr. Lowell Mitchell, DO: She will get an EGD to evaluate her upper esophagus and upper GI tract. We will also evaluate her stomach in small bowel for any signs of eosinophilic diseases. We will also get a serum IgE level. (2) Abdominal pain: Status: Acute Plan - Dr. Lowell Mitchell, DO: We will evaluate her upper GI tract. Since she does have a lactose allergy she could have small intestinal bacterial overgrowth. We will perform biopsies of the stomach and small bowel and check for H. pylori. We will also get above for now seen including biochemical analysis for rheumatoid arthritis, lupus, crest syndrome, Sjogren's syndrome, sarcoidosis. For the appropriate. I have re-examined the patient. There are no clinical changes since date of exam. 06/13/21631 Cosigner Signature (if applicable): CC: Gaby Solis MD; Lowell Mitchell DO Signed [facility] 04-25-2021 Miscellaneous Notes Noted Antoinette Anthony APRN.CNP Patient calls to report that she had blood work done and has concerns about the bruising/raised area to site. Nurse triage completed. Reassurance given. Sounds normal for infiltration. Protocol recommends home-care . Care advice reviewed with patient. Patient verbalizes understanding and will call back with any further concerns. Reason for Disposition Small area of skin swelling (no redness or pain) at prior IV site Answer Assessment - Initial Assessment Questions 1. SYMPTOM: Bruising green/purple to antecubital area and swelling at blood draw site firm to touch slightly raised. Patient reports anxiety and that she is freaking out. Reassurance given. Sounds like a normal response of infiltration. 2. ONSET: 20 minutes ago right after blood draw 3. PAIN: 4/10 4. OTHER SYMPTOMS: No fever, no redness, no warmth to site, no wound, no drainage. Protocols used: IV SITE (SKIN) [id number] documented in this encounter [facility] 08-25-2009 History of Past i llness Narrative Problem Noted Date Resolved Date Dyspareunia 08/25/2009 12/31/2021 Dysmenorrhea 08/25/2009 12/31/2021 Irregular menstrual cycle 08/25/20092021 documented as of this encounter (statuses as of 12/31/2021) [facility]2010 History of Past illness Narrative* Problem Noted Date Resolved Date Dyspareunia 08/25/2009 12/31/2021 Dysmenorrhea 08/25/2009 12/31/2021 Irregular menstrual cycle 08/25/20092021 documented as of this encounter (statuses as of 01/03/2022) [facility] History of Past illness Narrative* Problem Noted Date Resolved Date Dyspareunia 08/25/2009 12/31/2021 Dysmenorrhea 08/25/2009 12/31/2021 Irregular menstrual cycle 08/25/20092021 documented as of this encounter (statuses as of 01/23/2022) [facility] History of Past illness Narrative* Problem Noted Date Resolved Date Dyspareunia 08/25/2009 12/31/2021 Dysmenorrhea 08/25/2009 12/31/2021 Irregular menstrual cycle 08/25/20092021 documented as of this encounter (statuses as of 01/31/2022) [facility] History of Past illness Narrative* Problem Noted Date Resolved Date Dyspareunia 08/25/2009 12/31/2021 Dysmenorrhea 08/25/2009 12/31/2021 Irregular menstrual cycle 08/25/20092021 documented as of this encounter (statuses as of 02/27/2022) [facility] History of Past illness Narrative* Problem Noted Date Resolved Date Dyspareunia 08/25/2009 12/31/2021 Dysmenorrhea 08/25/2009 12/31/2021 Irregular menstrual cycle 08/25/20092021 documented as of this encounter (statuses as of 03/01/2022) [facility] History of Past illness Narrative* Problem Noted Date Resolved Date Dyspareunia 08/25/2009 12/31/2021 Dysmenorrhea 08/25/2009 12/31/2021 Irregular menstrual cycle 08/25/20092021 documented as of this encounter (statuses as of 04/10/2022) [facility] History of Past illness Narrative* Problem Noted Date Resolved Date Dyspareunia 08/25/2009 12/31/2021 Dysmenorrhea 08/25/2009 12/31/2021 Irregular menstrual cycle 08/25/20092021 documented as of this encounter (statuses as of 04/23/2022) [facility] History of Past illness Narrative* Problem Noted Date Resolved Date Dyspareunia 08/25/2009 12/31/2021 Dysmenorrhea 08/25/2009 12/31/2021 Irregular menstrual cycle 08/25/20092021 documented as of this encounter (statuses as of 04/29/2022) [facility] History of Past illness Narrative* Problem Noted Date Resolved Date Dyspareunia 08/25/2009 12/31/2021 Dysmenorrhea 08/25/2009 12/31/2021 Irregular menstrual cycle 08/25/20092021 documented as of this encounter (statuses as of 05/01/2022) [facility] History of Past illness Narrative* Problem Noted Date Resolved Date Dyspareunia 08/25/2009 12/31/2021 Dysmenorrhea 08/25/2009 12/31/2021 Irregular menstrual cycle 08/25/20092021 documented as of this encounter (statuses as of 05/02/2022) [facility] History of Past illness Narrative* Problem Noted Date Resolved Date Dyspareunia 08/25/2009 12/31/2021 Dysmenorrhea 08/25/2009 12/31/2021 Irregular menstrual cycle 08/25/20092021 documented as of this encounter (statuses as of 05/06/2022) [facility] History of Past illness Narrative* Problem Noted Date Resolved Date Dyspareunia 08/25/2009 12/31/2021 Dysmenorrhea 08/25/2009 12/31/2021 Irregular menstrual cycle 08/25/20092021 documented as of this encounter (statuses as of 05/25/2022) [facility] History of Past illness Narrative* Problem Noted Date Resolved Date Dyspareunia 08/25/2009 12/31/2021 Dysmenorrhea 08/25/2009 12/31/2021 Irregular menstrual cycle 08/25/20092021 documented as of this encounter (statuses as of 06/19/2022) [facility] History of Past illness Narrative* Problem Noted Date Resolved Date Dyspareunia 08/25/2009 12/31/2021 Dysmenorrhea 08/25/2009 12/31/2021 Irregular menstrual cycle 08/25/20092021 documented as of this encounter (statuses as of 06/21/2022) [facility] History of Past illness Narrative* Problem Noted Date Resolved Date Dyspareunia 08/25/2009 12/31/2021 Dysmenorrhea 08/25/2009 12/31/2021 Irregular menstrual cycle 08/25/20092021 documented as of this encounter (statuses as of 06/25/2022) [facility] History of Past illness Narrative* Problem Noted Date Resolved Date Dyspareunia 08/25/2009 12/31/2021 Dysmenorrhea 08/25/2009 12/31/2021 Irregular menstrual cycle 08/25/20092021 documented as of this encounter (statuses as of 07/02/2022) [facility] History of Past illness Narrative* Problem Noted Date Resolved Date Dyspareunia 08/25/2009 12/31/2021 Dysmenorrhea 08/25/2009 12/31/2021 Irregular menstrual cycle 08/25/20092021 documented as of this encounter (statuses as of 07/03/2022) [facility] History of Past illness Narrative* Problem Noted Date Resolved Date Dyspareunia 08/25/2009 12/31/2021 Dysmenorrhea 08/25/2009 12/31/2021 Irregular menstrual cycle 08/25/20092021 documented as of this encounter (statuses as of 07/05/2022) [facility] History of Past illness Narrative* Problem Noted Date Resolved Date Dyspareunia 08/25/2009 12/31/2021 Dysmenorrhea 08/25/2009 12/31/2021 Irregular menstrual cycle 08/25/20092021 documented as of this encounter (statuses as of 07/26/2022) [facility] History of Past illness Narrative* Problem Noted Date Diagnosed Date Resolved Date Dyspareunia 08/25/2009 12/31/2021 Dysmenorrhea 08/25/2009 12/31/2021 Irregular menstrual cycle 08/25/2009 documented as of this encounter (statuses as of 09/10/2022) [facility] History of Past illness Narrative* Problem Noted Date Diagnosed Date Resolved Date Dyspareunia 08/25/2009 12/31/2021 Dysmenorrhea 08/25/2009 12/31/2021 Irregular menstrual cycle 08/25/2009 documented as of this encounter (statuses as of 09/19/2022) [facility] History of Past illness Narrative* Problem Noted Date Diagnosed Date Resolved Date Dyspareunia 08/25/2009 12/31/2021 Dysmenorrhea 08/25/2009 12/31/2021 Irregular menstrual cycle 08/25/2009 documented as of this encounter (statuses as of 09/24/2022) [facility] History of Past illness Narrative* Problem Noted Date Diagnosed Date Resolved Date Dyspareunia 08/25/2009 12/31/2021 Dysmenorrhea 08/25/2009 12/31/2021 Irregular menstrual cycle 08/25/2009 documented as of this encounter (statuses as of 09/27/2022) [facility] History of Past illness Narrative* Problem Noted Date Diagnosed Date Resolved Date Dyspareunia 08/25/2009 12/31/2021 Dysmenorrhea 08/25/2009 12/31/2021 Irregular menstrual cycle 08/25/2009 documented as of this encounter (statuses as of 10/15/2022) [facility] History of Past illness Narrative* Problem Noted Date Diagnosed Date Resolved Date Dyspareunia 08/25/2009 12/31/2021 Dysmenorrhea 08/25/2009 12/31/2021 Irregular menstrual cycle 08/25/2009 documented as of this encounter (statuses as of 10/17/2022) [facility] History of Past illness Narrative* Problem Noted Date Diagnosed Date Resolved Date Dyspareunia 08/25/2009 12/31/2021 Dysmenorrhea 08/25/2009 12/31/2021 Irregular menstrual cycle 08/25/2009 documented as of this encounter (statuses as of 10/25/2022) [facility] History of Past illness Narrative* Problem Noted Date Diagnosed Date Resolved Date Dyspareunia 08/25/2009 12/31/2021 Dysmenorrhea 08/25/2009 12/31/2021 Irregular menstrual cycle 08/25/2009 documented as of this encounter (statuses as of 11/29/2022) [facility] History of Past illness Narrative* Problem Noted Date Diagnosed Date Resolved Date Dyspareunia 08/25/2009 12/31/2021 Dysmenorrhea 08/25/2009 12/31/2021 Irregular menstrual cycle 08/25/2009 documented as of this encounter (statuses as of 12/05/2022) [facility] History of Past illness Narrative* Problem Noted Date Diagnosed Date Resolved Date Dyspareunia 08/25/2009 12/31/2021 Dysmenorrhea 08/25/2009 12/31/2021 Irregular menstrual cycle 08/25/2009 documented as of this encounter (statuses as of 12/29/2022) [facility] History of Past illness Narrative* Problem Noted Date Diagnosed Date Resolved Date Dyspareunia 08/25/2009 12/31/2021 Dysmenorrhea 08/25/2009 12/31/2021 Irregular menstrual cycle 08/25/2009 documented as of this encounter (statuses as of 12/29/2022) [address]02-2010 History of Past illness Narrative* Problem Noted Date Diagnosed Date Resolved Date Dyspareunia 08/25/2009 12/31/2021 Dysmenorrhea 08/25/2009 12/31/2021 Irregular menstrual cycle 08/25/2009 documented as of this encounter (statuses as of 01/01/2023) [facility] History of Past illness Narrative* Problem Noted Date Diagnosed Date Resolved Date Dyspareunia 08/25/2009 12/31/2021 Dysmenorrhea 08/25/2009 12/31/2021 Irregular menstrual cycle 08/25/2009 documented as of this encounter (statuses as of 01/14/2023) [facility] History of Past illness Narrative* Problem Noted Date Diagnosed Date Resolved Date Dyspareunia 08/25/2009 12/31/2021 Dysmenorrhea 08/25/2009 12/31/2021 Irregular menstrual cycle 08/25/2009 documented as of this encounter (statuses as of 01/14/2023) [facility] History of Past illness Narrative* Problem Noted Date Diagnosed Date Resolved Date Dyspareunia 08/25/2009 12/31/2021 Dysmenorrhea 08/25/2009 12/31/2021 Irregular menstrual cycle 08/25/2009 documented as of this encounter (statuses as of 01/28/2023) [facility] History of Past illness Narrative* Problem Noted Date Diagnosed Date Resolved Date Dyspareunia 08/25/2009 12/31/2021 Dysmenorrhea 08/25/2009 12/31/2021 Irregular menstrual cycle 08/25/2009 documented as of this encounter (statuses as of 01/30/2023) [facility] History of Past illness Narrative* Problem Noted Date Diagnosed Date Resolved Date Dyspareunia 08/25/2009 12/31/2021 Dysmenorrhea 08/25/2009 12/31/2021 Irregular menstrual cycle 08/25/2009 documented as of this encounter (statuses as of 02/01/2023) [facility] History of Past illness Narrative* Problem Noted Date Diagnosed Date Resolved Date Dyspareunia 08/25/2009 12/31/2021 Dysmenorrhea 08/25/2009 12/31/2021 Irregular menstrual cycle 08/25/2009 documented as of this encounter (statuses as of 04/04/2023) [facility]07[facility] History of Past illness Narrative* Problem Noted Date Diagnosed Date Resolved Date Dyspareunia 08/25/2009 12/31/2021 Dysmenorrhea 08/25/2009 12/31/2021 Irregular menstrual cycle 08/25/2009 documented as of this encounter (statuses as of 04/16/2023) [facility] History of Past illness Narrative* Problem Noted Date Diagnosed Date Resolved Date Dyspareunia 08/25/2009 12/31/2021 Dysmenorrhea 08/25/2009 12/31/2021 Irregular menstrual cycle 08/25/2009 documented as of this encounter (statuses as of 05/05/2023) [facility] History of Past illness Narrative* Problem Noted Date Diagnosed Date Resolved Date Dyspareunia 08/25/2009 12/31/2021 Dysmenorrhea 08/25/2009 12/31/2021 Irregular menstrual cycle 08/25/2009 documented as of this encounter (statuses as of 06/06/2023) [facility] History of Past illness Narrative* Problem Noted Date Diagnosed Date Resolved Date Dyspareunia 08/25/2009 12/31/2021 Dysmenorrhea 08/25/2009 12/31/2021 Irregular menstrual cycle 08/25/2009 documented as of this encounter (statuses as of 06/12/2023) [facility] noteNo assessment information availableWTrinity [facility] Work Phone: Evaluation note* Diagnosis Screen for STD (sexually transmitted disease)- Primary Screening examination for venereal disease [facility]* Diagnosis Other chest pain- Primary Gastroesophageal reflux disease without esophagitis Esophageal reflux documented in this encounter [facility] note* Diagnosis Abrasion of vagina, initial encounter- Primary [facility]* Diagnosis Inattention- Primary Attention or concentration deficit Neck pain Cervicalgia Decreased sensation Disturbance of skin sensation Thrush Candidiasis of mouth [facility] Diagnosis Depression, unspecified depression type Inattention Attention or concentration deficit [facility] this [facility]* Diagnosis Urethra disorder- Primary Unspecified disorder of urethra and urinary tract Gastroesophageal reflux disease without esophagitis Esophageal reflux Acne, unspecified acne type Anxiety Anxiety state, unspecified [facility]* Diagnosis Dysuria- Primary Pelvic cramping Unspecified symptom associated with female genital organs [facility]* Diagnosis Vaginal irritation- Primary Unspecified noninflammatory disorder of vagina Screen for STD (sexually transmitted disease) Screening examination for venereal disease documented [facility]* Diagnosis NO SHOW- Primary [facility]* Diagnosis Tick bite of right lower leg, initial encounter- Primary [facility]* Diagnosis Encounter for gynecological examination (general) (routine) without abnormal findings- Primary [facility]* Diagnosis Annual physical exam- Primary Routine general medical examination at a health care facility documented [facility] this [facility]* Diagnosis APPOINTMENT CANCELLED- Primary [facility] Diagnosis Weight loss- Primary Loss of weight Elevated blood sugar Other abnormal glucose [facility]* Diagnosis Rapid weight loss- Primary Loss of weight Pelvic pain in female Unspecified symptom associated with female genital organs Irregular menstrual cycle [facility] Diagnosis Right ovarian cyst- Primary Other and unspecified ovarian cyst [facility] Diagnosis Chronic left-sided low back pain without sciatica- Primary Generalized anxiety disorder Chronic neck and back pain documented [facility] this [facility]* Diagnosis Disorder of autonomic nervous system- Primary Unspecified disorder of autonomic nervous system Postural dizziness Dizziness and giddiness Chronic migraine without aura without status migrainosus, not intractable Chronic migraine without aura, without mention of intractable migraine without mention of status migrainosus Cognitive impairment Unspecified persistent mental disorders due to conditions classified elsewhere Worsening headaches Headache Pulsatile tinnitus, bilateral Blurred vision, right eye Other specified visual disturbances [facility] this [facility]* Diagnosis Vaginal irritation- Primary Unspecified noninflammatory disorder of vagina documented [facility] this [facility]* Diagnosis Attention deficit disorder, unspecified hyperactivity presence- Primary documented [facility] this [facility]* Diagnosis Pain disorder associated with psychological factors and medical condition- Primary Other pain disorders related to psychological factors Generalized anxiety disorder Chronic pain syndrome [facility]* Diagnosis Generalized anxiety disorder- Primary Chronic pain syndrome Pain disorder associated with psychological factors and medical condition Other pain disorders related to psychological factors documented [facility] this [facility]* Diagnosis Attention deficit disorder, unspecified hyperactivity presence documented in this encounter [facility]* Diagnosis Orthostatic lightheadedness- Primary Dizziness and giddiness documented in this [facility]* Diagnosis Pain disorder associated with psychological factors and medical condition- Primary Other pain disorders related to psychological factors Chronic pain syndrome SADAF (generalized anxiety disorder) Generalized anxiety disorder documented [facility] this [facility]* Diagnosis Disorder of the autonomic nervous system, unspecified- Primary [facility] this [facility]* Diagnosis Attention deficit disorder, unspecified hyperactivity presence- Primary Seasonal allergies Allergic rhinitis, cause unspecified Traumatic brain injury with loss of consciousness, sequela (HCC) Neck pain Cervicalgia Dizziness Dizziness and giddiness documented in this [facility]* Diagnosis Screen for STD (sexually transmitted disease)- Primary Screening examination for venereal disease documented [facility] this [facility]* Diagnosis Right ovarian cyst Other and unspecified ovarian cyst documented in this [facility]* Diagnosis Pelvic pain in female Unspecified symptom associated with female genital organs documented [facility] this [facility]* Diagnosis URI, acute- Primary Acute upper respiratory infections of unspecified site Sore throat Acute pharyngitis documented in this [facility]* Diagnosis Attention deficit disorder, unspecified hyperactivity presence- Primary Rash Rash and other nonspecific skin eruption documented [facility] this [facility]* Diagnosis Routine medical exam- Primary Routine general medical examination at a health care facility Encounter for immunization Need for other specified prophylactic vaccination against single bacterial disease Attention deficit disorder, unspecified hyperactivity presence Screening for tuberculosis Screening examination for pulmonary tuberculosis UTI symptoms Other symptoms involving urinary system Oral pain Other and unspecified diseases of the oral soft tissues documented [facility] this [facility]* Diagnosis Cervicalgia Chronic pain syndrome [facility] this [facility]* Diagnosis Oral thrush- Primary Candidiasis of mouth Acute vaginitis Vaginitis and vulvovaginitis, unspecified Screen for STD (sexually transmitted disease) Screening examination for venereal disease documented [facility] this [facility]* Diagnosis Attention deficit disorder, unspecified hyperactivity presence- Primary Traumatic brain injury with loss of consciousness, sequela (HCC) Generalized anxiety disorder Depression, unspecified depression type Hair abnormality Abnormalities of the hair Brittle nails Other specified disease of nail documented in this encounter [facility]* Diagnosis Screen for STD (sexually transmitted disease)- Primary Screening examination for venereal disease documented [facility] this [facility]* Diagnosis Attention deficit disorder, unspecified hyperactivity presence- Primary Traumatic brain injury with loss of consciousness, sequela (HCC) Generalized anxiety disorder Depression, unspecified depression type Hair abnormality Abnormalities of the hair Brittle nails Other specified disease of nail documented in this encounter [facility]* Diagnosis Adjustment disorder with mixed anxiety and depressed mood- Primary documented in this encounter [facility]* Diagnosis Burning tongue- Primary Glossodynia documented in this encounter [facility]* Diagnosis Attention deficit disorder, unspecified hyperactivity presence- Primary documented in this encounter [facility]* Diagnosis Vitamin D deficiency Unspecified vitamin D deficiency documented in this [facility]* Diagnosis Sore throat- Primary Acute pharyngitis Viral illness Unspecified viral infection, in conditions classified elsewhere and of unspecified site documented in this encounter [facility]* Diagnosis Attention deficit disorder, unspecified hyperactivity presence- Primary documented in this encounter [facility]* Diagnosis Screening for STD (sexually transmitted disease)- Primary Screening examination for venereal disease documented in this encounter [facility]* Diagnosis Bladder pain- Primary Other symptoms involving urinary system Eczema, unspecified type documented [facility] this [facility]* Diagnosis Medication management- Primary Encounter for long-term (current) use of other medications Vitamin D deficiency Unspecified vitamin D deficiency documented in this encounter [facility]* Diagnosis Neck pain Cervicalgia documented in this [facility]* Diagnosis No-show for appointment- Primary Adjustment disorder with mixed anxiety and depressed mood documented [facility] this [facility]* Diagnosis Attention deficit hyperactivity disorder (ADHD), predominantly inattentive type- Primary [facility]* Diagnosis Encounter for gynecological examination (general) (routine) without abnormal findings- Primary Vaginal discharge Leukorrhea, not specified as infective Screening for STDs (sexually transmitted diseases) Screening examination for venereal disease documented [facility] this encounter [facility]* Diagnosis Encounter for testing for latent tuberculosis- Primary documented [facility] this [facility]* Diagnosis No-show for appointment- Primary Traumatic brain injury with loss of consciousness, sequela (HCC) Generalized anxiety disorder Depression, unspecified depression type documented in this encounter [facility]* Diagnosis Positive serological test result- Primary documented [facility] this [facility]* Diagnosis Annual physical exam- Primary Routine general medical examination at a health care facility Attention deficit hyperactivity disorder (ADHD), predominantly inattentive type Thrush Candidiasis of mouth Vitamin D deficiency Unspecified vitamin D deficiency Visit for TB skin test Screening examination for pulmonary tuberculosis documented [facility] this [facility]* Diagnosis APPOINTMENT CANCELLED- Primary documented in this encounter [facility]* Diagnosis No-show for appointment- Primary documented [facility]* Diagnosis Vaginal discharge- Primary Leukorrhea, not specified as infective Oral thrush Candidiasis of mouth documented in this encounter [facility]* Diagnosis Attention deficit hyperactivity disorder (ADHD), predominantly inattentive type documented in this encounter [facility]* Diagnosis Attention deficit hyperactivity disorder (ADHD), predominantly inattentive type documented in this encounter [facility]* Diagnosis Attention deficit hyperactivity disorder (ADHD), predominantly inattentive type documented in this [facility]* Diagnosis Other fatigue- Primary Seasonal allergies Allergic rhinitis, cause unspecified Glossodynia Brain fog Easy bruising Other symptoms involving skin and integumentary tissues Tachycardia Tachycardia, unspecified Cardiac arrhythmia, unspecified cardiac arrhythmia type documented in this encounter [facility]* Diagnosis Vitamin D deficiency- Primary Unspecified vitamin D deficiency Attention deficit hyperactivity disorder (ADHD), predominantly inattentive type Iron deficiency Iron deficiency anemia, unspecified Other fatigue SOB (shortness of breath) Shortness of breath documented in this encounter [facility] note* Diagnosis Chronic left-sided low back pain, unspecified whether sciatica present- Primary documented in this encounter [facility] note* Diagnosis SOB (shortness of breath) Shortness of breath documented in this encounter [facility] note* Diagnosis SOB (shortness of breath) Shortness of breath documented in this encounter [facility] note* Diagnosis Chronic left-sided low back pain, unspecified whether sciatica present- Primary documented in this encounter [facility] note* Diagnosis Attention deficit hyperactivity disorder (ADHD), predominantly inattentive type documented in this encounter [facility] note* Diagnosis Vaginal discharge- Primary Leukorrhea, not specified as infective Oral thrush Candidiasis of mouth Rash Rash and other nonspecific skin eruption documented in this encounter [facility] note* Diagnosis Chronic left-sided low back pain, unspecified whether sciatica present- Primary documented in this encounter [facility] note* Diagnosis Burning tongue- Primary Glossodynia documented in this encounter [facility] note* Diagnosis Chronic left-sided low back pain, unspecified whether sciatica present- Primary documented in this encounter [facility] note* Diagnosis Xerostomia- Primary Disturbance of salivary secretion Burning tongue Glossodynia documented in this encounter [facility] for referral (narrative)* Outpatient Procedure (Routine) - Authorized Specialty Diagnoses / Procedures Referred By Dena braun Referred To Contact [facility] Diagnoses Other chest pain Procedures ECG COMPLETE ECG ROUTINE ECG W/LEAST 12 LDS W/I&R Gaby Solis MD [address] [place] [address] [facility] [address] [place] [address] Referral ID Status Reason Start Date Expiration Date Visits Requested Visits Authorized [id number] Authorized Auto-Generat ed Referral 08/08/2021 08/08/2022 1 1 * Medication Prior Authorization - Closed Specialty Diagnoses / Procedures Referred By Dena braun Referred To Contact Gaby Solis MD [address] [place] [address] Referral ID Status Reason Start Date Expiration Date Visits Re quested Visits Authorized [id number] Closed 1 1 [facility] for referral (narrative)* Diagnostic Procedure Only (Routine) - Closed Specialty Diagnoses / Procedures Referred By Contac t Referred To Contact [facility] IMAGING Diagnoses Pelvic pain in female Procedures US FEMALE PELVIS TRANSVAG US TRANSVAGINAL Lena Olguin APRN.CNP [address] [address] [facility] Referral ID Status Reason Start Date Expiration Date V isits Requested Visits Authorized [id number] Closed Auto-Generate d Referral 05/02/2022 06/01/2023 1 1 * Consult, Test, Treat (Routine) - Authorized Specialty Diagnoses / Procedures Referred By Contac t Referred To Contact Endocrinology Diagnoses Rapid weight loss Procedures CONSULT TO ENDOCRINOLOGY OFFICE/OUTPATIENT NEW HIGH MDM 60-74 MINUTES Lena Olguin APRN.CNP [address] [place] [address] Referral ID Status Reason Start Date Expiration Date Visits Requested Visits Authorized [id number] Authorized PCP Requested Referral 05/02/2022 05/02/2023 1 1 [facility] for referral (narrative)* Diagnostic Procedure Only (Routine) - Authorized Specialty Diagnoses / Procedures Referred By Contac t Referred To Contact [facility] IMAGING Diagnoses Right ovarian cyst Procedures US FEMALE PELVIS TRANSVAG US TRANSVAGINAL Lena Olguin APRN.CNP [address] [place] [address] [facility] Referral ID Status Reason Start Date Expiration Date Visits Requested Visits Authorized [id number] Authorized Auto-Generat ed Referral 05/04/2022 06/03/2023 1 1 [facility] for referral (narrative)* Diagnostic Procedure Only (Routine) - Closed Specialty Diagnoses / Procedures Referred By Contac t Referred To Contact US IMAGING Diagnoses Right ovarian cyst Procedures US FEMALE PELVIS TRANSVAG US TRANSVAGINAL Lena Olguin APRN.ENGINE TEST CELL TECHNICIAN [address] [place] [address] [place] [address] Referral ID Status Reason Start Date Expiration Date V isits Requested Visits Authorized [id number] Closed Auto-Generate d Referral 05/04/2022 06/03/2023 1 1 [facility] for referral (narrative)* Diagnostic Procedure Only (Routine) - Closed Specialty Diagnoses / Procedures Referred By Contac t Referred To Contact US IMAGING Diagnoses Pelvic pain in female Procedures US FEMALE PELVIS TRANSVAG US TRANSVAGINAL Lena Olguin APRN.ENGINE TEST CELL TECHNICIAN [address] [place] [address] [place] [address] Referral ID Status Reason Start Date Expiration Date V isits Requested Visits Authorized [id number] Closed Auto-Generate d Referral 05/02/2022 06/01/2023 1 1 [facility] for referral (narrative)* Diagnostic Procedure Only (Routine) - Closed Specialty Diagnoses / Procedures Referred By Contac t Referred To Contact XR IMAGING Diagnoses Neck pain Procedures XR CERV GENERAL 2V AP/LAT RADEX SPINE CERVICAL 2 OR 3 VIEWS Antoinette Anthony APRN.ENGINE TEST CELL TECHNICIAN [address] [place] [address] [place] [address] Referral ID Status Reason Start Date Expiration Date V isits Requested Visits Authorized [id number] Closed Auto-Generate d Referral 10/01/2021 10/31/2022 1 1 [facility] for visit Narrative* Diagnostic Procedure Only (Routine) - Closed Specialty Diagnoses / Procedures Referred By Contac t Referred To Contact XR IMAGING Diagnoses Neck pain Procedures XR CERV GENERAL 2V AP/LAT RADEX SPINE CERVICAL 2 OR 3 VIEWS Older, Antoinette, SCREEN EXAMINER.ENGINE TEST CELL TECHNICIAN [address] [place] [address] [place] [address] Referral ID Status Reason Start Date Expiration Date V isits Requested Visits Authorized [id number] Closed Auto-Generate d Referral 10/01/2021 10/31/2022 1 1 [facility] Summary Purpose Family History No Family History Records FoundNo Family History Records FoundNo Family History Records FoundNo Family History Records FoundNo Family History Records Found Advance Directives No Advanced Directives Records Found Advance Directive Response Recorded Date/ Time Living Will No June 08, 2021 1:37pm Power of Jig Builder Helper No June 08 1:37pm Reason for Referral Specialty Diagnoses / Procedures Referred By Contac t Referred To Contact Neurology Diagnoses Decreased sensation Procedures CONSULT TO NEUROLOGY OFFICE/OUTPATIENT NEW HIGH MDM 60-74 MINUTES Older, Antoinette, SCREEN EXAMINER.ENGINE TEST CELL TECHNICIAN [address] [place] [address] Referral ID Status Reason Start Date Expiration Date Visits Requested Visits Authorized [id number] Authorized PCP Requested Referral 10/01/2021 10/01/2022 1 1 Specialty Diagnoses / Procedures Referred By Contac t Referred To Contact XR IMAGING Diagnoses Neck pain Procedures XR CERV GENERAL 2V AP/LAT RADEX SPINE CERVICAL 2 OR 3 VIEWS Older, Antoinette, SCREEN EXAMINER.ENGINE TEST CELL TECHNICIAN [address] [place] [address] X[facility] Imaging Referral ID Status Reason Start Date Expiration Date V isits Requested Visits Authorized [id number] Closed Auto-Generate d Referral 10/01/2021 10/31/2022 1 1 Specialty Diagnoses / Procedures Referred By Contac t Referred To Contact Gaby Solis MD [address] [place] [address] Referral ID Status Reason Start Date Expiration Date Visits Re quested Visits Authorized [id number] Closed 1 1 Specialty Diagnoses / Procedures Referred By Contac t Referred To Contact Diagnoses Gastroesophageal reflux disease without esophagitis Gaby Solis MD [address] [place] [address] Referral ID Status Reason Start Date Expiration Date Visits Re quested Visits Authorized [id number] Closed 1 1 Specialty Diagnoses / Procedures Referred By Dena t Referred To Contact Diagnoses Chronic left-sided low back pain without sciatica Generalized anxiety disorder Chronic neck and back pain Procedures BACK ON TREK REFERRAL AND PT CONSULT OFFICE/OUTPATIENT NEW [facility] MDM 60-74 MINUTES Octavio Rothman MD [address] [place] [address] Referral ID Status Reason Start Date Expiration Date Visits Requested Visits Authorized [id number] Pending Review PCP Requested Referral 05/24/2022 05/24/2023 1 1 Specialty Diagnoses / Procedures Referred By Dena braun Referred To Contact MR IMAGING Diagnoses Worsening headaches Pulsatile tinnitus, bilateral Blurred vision, right eye Procedures MRA BRAIN WO IVCON MRA, HEAD W/O CONTRAST Araceli Hood, PERI.ENGINE TEST CELL TECHNICIAN [address] [place] [address] Mr Imaging Referral ID Status Reason Start Date Expiration Date Visits Requested Visits Authorized [id number] Pending Review Auto-Generat ed Referral 06/18/2022 07/18/2023 1 1 Specialty Diagnoses / Procedures Referred By Dena braun Referred To Contact MR IMAGING Diagnoses Worsening headaches Pulsatile tinnitus, bilateral Blurred vision, right eye Procedures MRI BRAIN WO/W IVCON MRI BRAIN BRAIN STEM W/O W/CONTRAST MATERIAL Araceli Hood, ENGINE TEST CELL TECHNICIAN [address] [place] [address] Mr Imaging Referral ID Status Reason Start Date Expiration Date Visits Requested Visits Authorized [id number] Pending Review Auto-Generat ed Referral 06/18/2022 07/18/2023 1 1 Specialty Diagnoses / Procedures Referred By Dena braun Referred To Contact [facility] Diagnoses Cognitive impairment Procedures CONSULT TO SPEECH THERAPY OFFICE/OUTPATIENT NEW HIGH MDM 60-74 MINUTES Araceli Hood APRN.ENGINE TEST CELL TECHNICIAN [address] [place] [address] [facility] [place] [address] [place] [address] Referral ID Status Reason Start Date Expiration Date Visits Requested Visits Authorized [id number] Pending Review Auto-Generat ed Referral 06/18/2022 06/18/2023 1 1 Specialty Diagnoses / Procedures Referred By Contac t Referred To Contact [facility] [place] Diagnoses Chronic pain syndrome Procedures [facility]SULT TO [facility]) OFFICE/OUTPATIENT [facility] 60-74 MINUTES Harper Moctezuma PSYD [address] [place] [address] Referral ID Status Reason Start Date Expiration Date Visits Requested Visits Authorized [id number] Pending Review PCP Requested Referral 07/26/2022 07/26/2023 1 1 Specialty Diagnoses / Procedures Referred By Contac t Referred To Contact Diagnoses Attention deficit disorder, unspecified hyperactivity presence Annita Allred, SCREEN EXAMINER.PARTS COUNTER SALESPERSON [address] [place] [address] Referral ID Status Reason Start Date Expiration Date Visits Re quested Visits Authorized [id number] Closed 1 1 Referral ID Status Reason Start Date Expiration Date Visits Re quested Visits Authorized [id number] Closed 1 1 Referral ID Status Reason Start Date Expiration Date Visits Re quested Visits Authorized [id number] Closed 1 1 Specialty Diagnoses / Procedures Referred By Contac t Referred To Contact [facility] Diagnoses Cervicalgia Chronic pain syndrome Procedures MRI CERVICAL SPINE WO IVCON MRI SPINAL CANAL CERVICAL W/O CONTRAST MATRYana Merino, SCREEN EXAMINER.ENGINE TEST CELL TECHNICIAN [address] [phone] Mr Imaging [facility] Referral ID Status Reason Start Date Expiration Date V isits Requested Visits Authorized [id number] Closed Auto-Generate d Referral 01/06/2023 03/07/2023 1 1 Specialty Diagnoses / Procedures Referred By Contac t Referred To Contact Diagnoses Traumatic brain injury with loss of consciousness, sequela (HCC) Generalized anxiety disorder Depression, unspecified depression type Procedures CONSULT TO HOLISTIC PSYCHOTHERAPY PSYCHIATRIC DIAGNOSTIC EVALUATION Suzi Rodriguez PA-C [address] [place] [address] Referral ID Status Reason Start Date Expiration Date Visits Requested Visits Authorized [id number] Authorized PCP Requested Referral 04/16/2023 04/15/2024 1 1 Specialty Diagnoses / Procedures Referred By Conttomás t Referred To Contact Diagnoses Attention deficit disorder, unspecified hyperactivity presence Suzi Rodriguez PA-C [address] [place] [address] Referral ID Status Reason Start Date Expiration Date Visits Re quested Visits Authorized [id number] Closed 1 1 Referral ID Status Reason Start Date Expiration Date Visits Re quested Visits Authorized [id number] Closed 1 1 Health Concerns Infection Onset Date Last Indicated Resolved Time COVID-19 Confirmed 10/13/2021 10/13/2021 Infection Onset Date Last Indicated Resolved Time COVID-19 Confirmed 10/13/2021 10/13/2021 Additional Source Comments INFORMATION SOURCE (unrecogn ized section and content) DATE CREATED AUTHOR 10/22/2018 [facility] DATE CREATED AUTHOR AUTHOR'S ORGANIZ ATION 07/13/2021 [facility] DATE CREATED AUTHOR AUTHOR'S ORGANIZ ATION 07/27/2021 [facility] DATE CREATED AUTHOR AUTHOR'S ORGANIZ ATION 11/03/2021 [facility] DATE CREATED AUTHOR AUTHOR'S ORGANIZ ATION 08/20/2024 [facility] Goals (unrecognized section and content) Goals may be documented in a n alternate section Source Comments (unrecognize d section and content) In the event this informatio n is protected by the Federal Confidentiality of Alcohol and Drug Abuse Patient Records regulations: The Federal rules restrict any use of the information to criminally investigate or prosecute any alcohol or drug abuse patient.[facility] the event this information is protected by the Federal Confidentiality of Alcohol and Drug Abuse Patient Records regulations: The Federal rules restrict any use of the information to criminally investigate or prosecute any alcohol or drug abuse patient.[facility]In the event this information is protected by the Federal Confidentiality of Alcohol and Drug Abuse Patient Records regulations: The Federal rules restrict any use of the information to criminally investigate or prosecute any alcohol or drug abuse patient.[facility] HospitalIn the event this information is protected by the Federal Confidentiality of Alcohol and Drug Abuse Patient Records regulations: The Federal rules restrict any use of the information to criminally investigate or prosecute any alcohol or drug abuse patient.[facility] HospitalIn the event this information is protected by the Federal Confidentiality of Alcohol and Drug Abuse Patient Records regulations: The Federal rules restrict any use of the information to criminally investigate or prosecute any alcohol or drug abuse patient.[facility] HospitalIn the event this information is protected by the Federal Confidentiality of Alcohol and Drug Abuse Patient Records regulations: The Federal rules restrict any use of the information to criminally investigate or prosecute any alcohol or drug abuse patient.[facility] the event this information is protected by the Federal Confidentiality of Alcohol and Drug Abuse Patient Records regulations: The Federal rules restrict any use of the information to criminally investigate or prosecute any alcohol or drug abuse patient.[facility] HospitalIn the event this information is protected by the Federal Confidentiality of Alcohol and Drug Abuse Patient Records regulations: The Federal rules restrict any use of the information to criminally investigate or prosecute any alcohol or drug abuse patient.[facility] HospitalIn the event this information is protected by the Federal Confidentiality of Alcohol and Drug Abuse Patient Records regulations: The Federal rules restrict any use of the information to criminally investigate or prosecute any alcohol or drug abuse patient.[facility] the event this information is protected by the Federal Confidentiality of Alcohol and Drug Abuse Patient Records regulations: The Federal rules restrict any use of the information to criminally investigate or prosecute any alcohol or drug abuse patient.[facility] HospitalIn the event this information is protected by the Federal Confidentiality of Alcohol and Drug Abuse Patient Records regulations: The Federal rules restrict any use of the information to criminally investigate or prosecute any alcohol or drug abuse patient.[facility] HospitalIn the event this information is protected by the Federal Confidentiality of Alcohol and Drug Abuse Patient Records regulations: The Federal rules restrict any use of the information to criminally investigate or prosecute any alcohol or drug abuse patient.[facility] HospitalIn the event this information is protected by the Federal Confidentiality of Alcohol and Drug Abuse Patient Records regulations: The Federal rules restrict any use of the information to criminally investigate or prosecute any alcohol or drug abuse patient.[facility] HospitalIn the event this information is protected by the Federal Confidentiality of Alcohol and Drug Abuse Patient Records regulations: The Federal rules restrict any use of the information to criminally investigate or prosecute any alcohol or drug abuse patient.[facility] HospitalIn the event this information is protected by the Federal Confidentiality of Alcohol and Drug Abuse Patient Records regulations: The Federal rules restrict any use of the information to criminally investigate or prosecute any alcohol or drug abuse patient.[facility] HospitalIn the event this information is protected by the Federal Confidentiality of Alcohol and Drug Abuse Patient Records regulations: The Federal rules restrict any use of the information to criminally investigate or prosecute any alcohol or drug abuse patient.[facility] HospitalIn the event this information is protected by the Federal Confidentiality of Alcohol and Drug Abuse Patient Records regulations: The Federal rules restrict any use of the information to criminally investigate or prosecute any alcohol or drug abuse patient.[facility] HospitalIn the event this information is protected by the Federal Confidentiality of Alcohol and Drug Abuse Patient Records regulations: The Federal rules restrict any use of the information to criminally investigate or prosecute any alcohol or drug abuse patient.[facility] HospitalIn the event this information is protected by the Federal Confidentiality of Alcohol and Drug Abuse Patient Records regulations: The Federal rules restrict any use of the information to criminally investigate or prosecute any alcohol or drug abuse patient.[facility] HospitalIn the event this information is protected by the Federal Confidentiality of Alcohol and Drug Abuse Patient Records regulations: The Federal rules restrict any use of the information to criminally investigate or prosecute any alcohol or drug abuse patient.[facility] HospitalIn the event this information is protected by the Federal Confidentiality of Alcohol and Drug Abuse Patient Records regulations: The Federal rules restrict any use of the information to criminally investigate or prosecute any alcohol or drug abuse patient.[facility] HospitalIn the event this information is protected by the Federal Confidentiality of Alcohol and Drug Abuse Patient Records regulations: The Federal rules restrict any use of the information to criminally investigate or prosecute any alcohol or drug abuse patient.[facility] HospitalIn the event this information is protected by the Federal Confidentiality of Alcohol and Drug Abuse Patient Records regulations: The Federal rules restrict any use of the information to criminally investigate or prosecute any alcohol or drug abuse patient.[facility] HospitalIn the event this information is protected by the Federal Confidentiality of Alcohol and Drug Abuse Patient Records regulations: The Federal rules restrict any use of the information to criminally investigate or prosecute any alcohol or drug abuse patient.[facility] HospitalIn the event this information is protected by the Federal Confidentiality of Alcohol and Drug Abuse Patient Records regulations: The Federal rules restrict any use of the information to criminally investigate or prosecute any alcohol or drug abuse patient.[facility] HospitalIn the event this information is protected by the Federal Confidentiality of Alcohol and Drug Abuse Patient Records regulations: The Federal rules restrict any use of the information to criminally investigate or prosecute any alcohol or drug abuse patient.[facility] HospitalIn the event this information is protected by the Federal Confidentiality of Alcohol and Drug Abuse Patient Records regulations: The Federal rules restrict any use of the information to criminally investigate or prosecute any alcohol or drug abuse patient.[facility] HospitalIn the event this information is protected by the Federal Confidentiality of Alcohol and Drug Abuse Patient Records regulations: The Federal rules restrict any use of the information to criminally investigate or prosecute any alcohol or drug abuse patient.[facility] HospitalIn the event this information is protected by the Federal Confidentiality of Alcohol and Drug Abuse Patient Records regulations: The Federal rules restrict any use of the information to criminally investigate or prosecute any alcohol or drug abuse patient.[facility] HospitalIn the event this information is protected by the Federal Confidentiality of Alcohol and Drug Abuse Patient Records regulations: The Federal rules restrict any use of the information to criminally investigate or prosecute any alcohol or drug abuse patient.[facility] HospitalIn the event this information is protected by the Federal Confidentiality of Alcohol and Drug Abuse Patient Records regulations: The Federal rules restrict any use of the information to criminally investigate or prosecute any alcohol or drug abuse patient.[facility] HospitalIn the event this information is protected by the Federal Confidentiality of Alcohol and Drug Abuse Patient Records regulations: The Federal rules restrict any use of the information to criminally investigate or prosecute any alcohol or drug abuse patient.[facility] HospitalIn the event this information is protected by the Federal Confidentiality of Alcohol and Drug Abuse Patient Records regulations: The Federal rules restrict any use of the information to criminally investigate or prosecute any alcohol or drug abuse patient.[facility] HospitalIn the event this information is protected by the Federal Confidentiality of Alcohol and Drug Abuse Patient Records regulations: The Federal rules restrict any use of the information to criminally investigate or prosecute any alcohol or drug abuse patient.[facility] HospitalIn the event this information is protected by the Federal Confidentiality of Alcohol and Drug Abuse Patient Records regulations: The Federal rules restrict any use of the information to criminally investigate or prosecute any alcohol or drug abuse patient.[facility] HospitalIn the event this information is protected by the Federal Confidentiality of Alcohol and Drug Abuse Patient Records regulations: The Federal rules restrict any use of the information to criminally investigate or prosecute any alcohol or drug abuse patient.[facility] HospitalIn the event this information is protected by the Federal Confidentiality of Alcohol and Drug Abuse Patient Records regulations: The Federal rules restrict any use of the information to criminally investigate or prosecute any alcohol or drug abuse patient.[facility] HospitalIn the event this information is protected by the Federal Confidentiality of Alcohol and Drug Abuse Patient Records regulations: The Federal rules restrict any use of the information to criminally investigate or prosecute any alcohol or drug abuse patient.[facility] HospitalIn the event this information is protected by the Federal Confidentiality of Alcohol and Drug Abuse Patient Records regulations: The Federal rules restrict any use of the information to criminally investigate or prosecute any alcohol or drug abuse patient.[facility] HospitalIn the event this information is protected by the Federal Confidentiality of Alcohol and Drug Abuse Patient Records regulations: The Federal rules restrict any use of the information to criminally investigate or prosecute any alcohol or drug abuse patient.[facility] HospitalIn the event this information is protected by the Federal Confidentiality of Alcohol and Drug Abuse Patient Records regulations: The Federal rules restrict any use of the information to criminally investigate or prosecute any alcohol or drug abuse patient.[facility] HospitalIn the event this information is protected by the Federal Confidentiality of Alcohol and Drug Abuse Patient Records regulations: The Federal rules restrict any use of the information to criminally investigate or prosecute any alcohol or drug abuse patient.[facility] HospitalIn the event this information is protected by the Federal Confidentiality of Alcohol and Drug Abuse Patient Records regulations: The Federal rules restrict any use of the information to criminally investigate or prosecute any alcohol or drug abuse patient.[facility] HospitalIn the event this information is protected by the Federal Confidentiality of Alcohol and Drug Abuse Patient Records regulations: The Federal rules restrict any use of the information to criminally investigate or prosecute any alcohol or drug abuse patient.[facility] HospitalIn the event this information is protected by the Federal Confidentiality of Alcohol and Drug Abuse Patient Records regulations: The Federal rules restrict any use of the information to criminally investigate or prosecute any alcohol or drug abuse patient.[facility] HospitalIn the event this information is protected by the Federal Confidentiality of Alcohol and Drug Abuse Patient Records regulations: The Federal rules restrict any use of the information to criminally investigate or prosecute any alcohol or drug abuse patient.[facility] HospitalIn the event this information is protected by the Federal Confidentiality of Alcohol and Drug Abuse Patient Records regulations: The Federal rules restrict any use of the information to criminally investigate or prosecute any alcohol or drug abuse patient.[facility] HospitalIn the event this information is protected by the Federal Confidentiality of Alcohol and Drug Abuse Patient Records regulations: The Federal rules restrict any use of the information to criminally investigate or prosecute any alcohol or drug abuse patient.[facility] HospitalIn the event this information is protected by the Federal Confidentiality of Alcohol and Drug Abuse Patient Records regulations: The Federal rules restrict any use of the information to criminally investigate or prosecute any alcohol or drug abuse patient.[facility] HospitalIn the event this information is protected by the Federal Confidentiality of Alcohol and Drug Abuse Patient Records regulations: The Federal rules restrict any use of the information to criminally investigate or prosecute any alcohol or drug abuse patient.[facility] HospitalIn the event this information is protected by the Federal Confidentiality of Alcohol and Drug Abuse Patient Records regulations: The Federal rules restrict any use of the information to criminally investigate or prosecute any alcohol or drug abuse patient.[facility] HospitalIn the event this information is protected by the Federal Confidentiality of Alcohol and Drug Abuse Patient Records regulations: The Federal rules restrict any use of the information to criminally investigate or prosecute any alcohol or drug abuse patient.[facility] HospitalIn the event this information is protected by the Federal Confidentiality of Alcohol and Drug Abuse Patient Records regulations: The Federal rules restrict any use of the information to criminally investigate or prosecute any alcohol or drug abuse patient.[facility] HospitalIn the event this information is protected by the Federal Confidentiality of Alcohol and Drug Abuse Patient Records regulations: The Federal rules restrict any use of the information to criminally investigate or prosecute any alcohol or drug abuse patient.[facility] HospitalIn the event this information is protected by the Federal Confidentiality of Alcohol and Drug Abuse Patient Records regulations: The Federal rules restrict any use of the information to criminally investigate or prosecute any alcohol or drug abuse patient.[facility] HospitalIn the event this information is protected by the Federal Confidentiality of Alcohol and Drug Abuse Patient Records regulations: The Federal rules restrict any use of the information to criminally investigate or prosecute any alcohol or drug abuse patient.[facility] the event this information is protected by the Federal Confidentiality of Alcohol and Drug Abuse Patient Records regulations: The Federal rules restrict any use of the information to criminally investigate or prosecute any alcohol or drug abuse patient.[facility] HospitalIn the event this information is protected by the Federal Confidentiality of Alcohol and Drug Abuse Patient Records regulations: The Federal rules restrict any use of the information to criminally investigate or prosecute any alcohol or drug abuse patient.[facility] HospitalIn the event this information is protected by the Federal Confidentiality of Alcohol and Drug Abuse Patient Records regulations: The Federal rules restrict any use of the information to criminally investigate or prosecute any alcohol or drug abuse patient.[facility]In the event this information is protected by the Federal Confidentiality of Alcohol and Drug Abuse Patient Records regulations: The Federal rules restrict any use of the information to criminally investigate or prosecute any alcohol or drug abuse patient.[facility] HospitalIn the event this information is protected by the Federal Confidentiality of Alcohol and Drug Abuse Patient Records regulations: The Federal rules restrict any use of the information to criminally investigate or prosecute any alcohol or drug abuse patient.[facility] HospitalIn the event this information is protected by the Federal Confidentiality of Alcohol and Drug Abuse Patient Records regulations: The Federal rules restrict any use of the information to criminally investigate or prosecute any alcohol or drug abuse patient.[facility] HospitalIn the event this information is protected by the Federal Confidentiality of Alcohol and Drug Abuse Patient Records regulations: The Federal rules restrict any use of the information to criminally investigate or prosecute any alcohol or drug abuse patient.[facility] HospitalIn the event this information is protected by the Federal Confidentiality of Alcohol and Drug Abuse Patient Records regulations: The Federal rules restrict any use of the information to criminally investigate or prosecute any alcohol or drug abuse patient.[facility] HospitalIn the event this information is protected by the Federal Confidentiality of Alcohol and Drug Abuse Patient Records regulations: The Federal rules restrict any use of the information to criminally investigate or prosecute any alcohol or drug abuse patient.[facility] HospitalIn the event this information is protected by the Federal Confidentiality of Alcohol and Drug Abuse Patient Records regulations: The Federal rules restrict any use of the information to criminally investigate or prosecute any alcohol or drug abuse patient.[facility] HospitalIn the event this information is protected by the Federal Confidentiality of Alcohol and Drug Abuse Patient Records regulations: The Federal rules restrict any use of the information to criminally investigate or prosecute any alcohol or drug abuse patient.[facility] HospitalIn the event this information is protected by the Federal Confidentiality of Alcohol and Drug Abuse Patient Records regulations: The Federal rules restrict any use of the information to criminally investigate or prosecute any alcohol or drug abuse patient.[facility] HospitalIn the event this information is protected by the Federal Confidentiality of Alcohol and Drug Abuse Patient Records regulations: The Federal rules restrict any use of the information to criminally investigate or prosecute any alcohol or drug abuse patient.[facility] HospitalIn the event this information is protected by the Federal Confidentiality of Alcohol and Drug Abuse Patient Records regulations: The Federal rules restrict any use of the information to criminally investigate or prosecute any alcohol or drug abuse patient.[facility] HospitalIn the event this information is protected by the Federal Confidentiality of Alcohol and Drug Abuse Patient Records regulations: The Federal rules restrict any use of the information to criminally investigate or prosecute any alcohol or drug abuse patient.[facility] HospitalIn the event this information is protected by the Federal Confidentiality of Alcohol and Drug Abuse Patient Records regulations: The Federal rules restrict any use of the information to criminally investigate or prosecute any alcohol or drug abuse patient.[facility] HospitalIn the event this information is protected by the Federal Confidentiality of Alcohol and Drug Abuse Patient Records regulations: The Federal rules restrict any use of the information to criminally investigate or prosecute any alcohol or drug abuse patient.[facility] HospitalIn the event this information is protected by the Federal Confidentiality of Alcohol and Drug Abuse Patient Records regulations: The Federal rules restrict any use of the information to criminally investigate or prosecute any alcohol or drug abuse patient.[facility] HospitalIn the event this information is protected by the Federal Confidentiality of Alcohol and Drug Abuse Patient Records regulations: The Federal rules restrict any use of the information to criminally investigate or prosecute any alcohol or drug abuse patient.[facility] HospitalIn the event this information is protected by the Federal Confidentiality of Alcohol and Drug Abuse Patient Records regulations: The Federal rules restrict any use of the information to criminally investigate or prosecute any alcohol or drug abuse patient.[facility] HospitalIn the event this information is protected by the Federal Confidentiality of Alcohol and Drug Abuse Patient Records regulations: The Federal rules restrict any use of the information to criminally investigate or prosecute any alcohol or drug abuse patient.[facility] HospitalIn the event this information is protected by the Federal Confidentiality of Alcohol and Drug Abuse Patient Records regulations: The Federal rules restrict any use of the information to criminally investigate or prosecute any alcohol or drug abuse patient.[facility] HospitalIn the event this information is protected by the Federal Confidentiality of Alcohol and Drug Abuse Patient Records regulations: The Federal rules restrict any use of the information to criminally investigate or prosecute any alcohol or drug abuse patient.[facility] HospitalIn the event this information is protected by the Federal Confidentiality of Alcohol and Drug Abuse Patient Records regulations: The Federal rules restrict any use of the information to criminally investigate or prosecute any alcohol or drug abuse patient.[facility] HospitalIn the event this information is protected by the Federal Confidentiality of Alcohol and Drug Abuse Patient Records regulations: The Federal rules restrict any use of the information to criminally investigate or prosecute any alcohol or drug abuse patient.[facility] HospitalIn the event this information is protected by the Federal Confidentiality of Alcohol and Drug Abuse Patient Records regulations: The Federal rules restrict any use of the information to criminally investigate or prosecute any alcohol or drug abuse patient.[facility] HospitalIn the event this information is protected by the Federal Confidentiality of Alcohol and Drug Abuse Patient Records regulations: The Federal rules restrict any use of the information to criminally investigate or prosecute any alcohol or drug abuse patient.[facility] HospitalIn the event this information is protected by the Federal Confidentiality of Alcohol and Drug Abuse Patient Records regulations: The Federal rules restrict any use of the information to criminally investigate or prosecute any alcohol or drug abuse patient.[facility] HospitalIn the event this information is protected by the Federal Confidentiality of Alcohol and Drug Abuse Patient Records regulations: The Federal rules restrict any use of the information to criminally investigate or prosecute any alcohol or drug abuse patient.[facility] HospitalIn the event this information is protected by the Federal Confidentiality of Alcohol and Drug Abuse Patient Records regulations: The Federal rules restrict any use of the information to criminally investigate or prosecute any alcohol or drug abuse patient.[facility] HospitalIn the event this information is protected by the Federal Confidentiality of Alcohol and Drug Abuse Patient Records regulations: The Federal rules restrict any use of the information to criminally investigate or prosecute any alcohol or drug abuse patient.[facility] HospitalIn the event this information is protected by the Federal Confidentiality of Alcohol and Drug Abuse Patient Records regulations: The Federal rules restrict any use of the information to criminally investigate or prosecute any alcohol or drug abuse patient.[facility] HospitalIn the event this information is protected by the Federal Confidentiality of Alcohol and Drug Abuse Patient Records regulations: The Federal rules restrict any use of the information to criminally investigate or prosecute any alcohol or drug abuse patient.[facility] HospitalIn the event this information is protected by the Federal Confidentiality of Alcohol and Drug Abuse Patient Records regulations: The Federal rules restrict any use of the information to criminally investigate or prosecute any alcohol or drug abuse patient.[facility] HospitalIn the event this information is protected by the Federal Confidentiality of Alcohol and Drug Abuse Patient Records regulations: The Federal rules restrict any use of the information to criminally investigate or prosecute any alcohol or drug abuse patient.[facility] HospitalIn the event this information is protected by the Federal Confidentiality of Alcohol and Drug Abuse Patient Records regulations: The Federal rules restrict any use of the information to criminally investigate or prosecute any alcohol or drug abuse patient.[facility] HospitalIn the event this information is protected by the Federal Confidentiality of Alcohol and Drug Abuse Patient Records regulations: The Federal rules restrict any use of the information to criminally investigate or prosecute any alcohol or drug abuse patient.[facility] HospitalIn the event this information is protected by the Federal Confidentiality of Alcohol and Drug Abuse Patient Records regulations: The Federal rules restrict any use of the information to criminally investigate or prosecute any alcohol or drug abuse patient.[facility] HospitalIn the event this information is protected by the Federal Confidentiality of Alcohol and Drug Abuse Patient Records regulations: The Federal rules restrict any use of the information to criminally investigate or prosecute any alcohol or drug abuse patient.[facility] HospitalIn the event this information is protected by the Federal Confidentiality of Alcohol and Drug Abuse Patient Records regulations: The Federal rules restrict any use of the information to criminally investigate or prosecute any alcohol or drug abuse patient.[facility] HospitalIn the event this information is protected by the Federal Confidentiality of Alcohol and Drug Abuse Patient Records regulations: The Federal rules restrict any use of the information to criminally investigate or prosecute any alcohol or drug abuse patient.[facility] HospitalIn the event this information is protected by the Federal Confidentiality of Alcohol and Drug Abuse Patient Records regulations: The Federal rules restrict any use of the information to criminally investigate or prosecute any alcohol or drug abuse patient.[facility] HospitalIn the event this information is protected by the Federal Confidentiality of Alcohol and Drug Abuse Patient Records regulations: The Federal rules restrict any use of the information to criminally investigate or prosecute any alcohol or drug abuse patient.[facility] HospitalIn the event this information is protected by the Federal Confidentiality of Alcohol and Drug Abuse Patient Records regulations: The Federal rules restrict any use of the information to criminally investigate or prosecute any alcohol or drug abuse patient.[facility] HospitalIn the event this information is protected by the Federal Confidentiality of Alcohol and Drug Abuse Patient Records regulations: The Federal rules restrict any use of the information to criminally investigate or prosecute any alcohol or drug abuse patient.[facility] HospitalIn the event this information is protected by the Federal Confidentiality of Alcohol and Drug Abuse Patient Records regulations: The Federal rules restrict any use of the information to criminally investigate or prosecute any alcohol or drug abuse patient.[facility] HospitalIn the event this information is protected by the Federal Confidentiality of Alcohol and Drug Abuse Patient Records regulations: The Federal rules restrict any use of the information to criminally investigate or prosecute any alcohol or drug abuse patient.[facility] Reason for Visit (unrecogniz ed section and content) Reason Comments PT Discharge Specialty Diagnoses / Procedures Referred By Dena t Referred To Contact [facility] Diagnoses Chronic left-sided low back pain, unspecified whether sciatica present Procedures CONSULT TO PHYSICAL THERAPY PHYSICAL THERAPY EVALUATION HIGH COMPLEX 45 MINS Octavio Rothman MD [address] [place] [address] Phone: tel: fax: [facility] [address] [place] [address] Referral ID Status Reason Start Date Expiration Date Visits Requested Visits Authorized [id number] Authorized Auto-Generat ed Referral 02/25/2024 02/23/2025 99 99 Reason Comments Physical Therapy Reason Comments No Show Specialty Diagnoses / Procedures Referred By Dena braun Referred To Contact Weight And Test Bar Clerk / WELLNESS Diagnoses Mind Body Procedures EST SC MIND BODY Nara Ocampo LISW [address] [place] [address] Phone: tel: fax: Nara Ocampo LISW [address] [place] [address] Phone: tel: fax: Referral ID Status Reason Start Date Expiration Date V isits Requested Visits Authorized [id number] Authorized 02/25/2024 02/23/2025 99 99 Specialty Diagnoses / Procedures Referred By Contac t Referred To Contact Diagnoses Traumatic brain injury with loss of consciousness, sequela (HCC) Generalized anxiety disorder Depression, unspecified depression type Procedures CONSULT TO HOLISTIC PSYCHOTHERAPY PSYCHIATRIC DIAGNOSTIC EVALUATION Suzi Rodriguez PA-C [address] [place] [address] Referral ID Status Reason Start Date Expiration Date V isits Requested Visits Authorized [id number] Closed PCP Requested Referral 04/16/2023 04/15/2024 1 1 Reason Comments STD screening Reason Comments Same Day Appointment left shoulder, and chest discomfort since friday Reason Comments Vaginal Problem Reason Comments Folliculitis Medication follow up Reason Comments Patient Question Reason Comments Results Reason Comments Phlebotomy Bleeding/Bruising Reason Comments F/U 6 months possible UTI Reason Comments Refill Request Reason Comments Appointment Patient Question Specialty Diagnoses / Procedures Referred By Contac t Referred To Contact Neurology Diagnoses Decreased sensation Procedures CONSULT TO NEUROLOGY OFFICE/OUTPATIENT [facility] MDM 60-74 MINUTES Antoinette Anthony APRN.ENGINE TEST CELL TECHNICIAN [address] [place] [address] Referral ID Status Reason Start Date Expiration Date Visits Requested Visits Authorized [id number] Authorized PCP Requested Referral 10/01/2021 10/01/2022 1 1 Reason Comments tick bite right knee Noticed it first th is am Reason Comments Yearly Exam Reason Comments Physical Reason Comments phone encounter Reason Comments Established Patient Neck Pain Low Back Pain Neck pain and back p ain. Neck pain radiates back to trapezius and left fingers - all 5 fingers. Low back pain is bilateral. Pain radiates to buttocks bilaterally and down her right leg posterior to her knee. Reason Comments Follow Up Reason Comments Vaginal Bleeding Reason Comments Pelvic Pain Reason Comments Results Reason Comments Established Patient Reason Comments New Patient Specialty Diagnoses / Procedures Referred By Contac t Referred To Contact Neurology Diagnoses Dizziness Procedures CONSULT TO NEUROLOGY OFFICE/OUTPATIENT [facility] MDM 60-[place] [address] [place] [address] Referral ID Status Reason Start Date Expiration Date V isits Requested Visits Authorized [id number] Closed PCP Requested Referral 06/03/2022 06/03/2023 1 1 Reason Comments Vaginal Problem ? Yeast infection- 1 day- just vaginal irritation Reason Comments Medication Question Reason Comments Consult Specialty Diagnoses / Procedures Referred By Contac t Referred To Contact Diagnoses Generalized anxiety disorder Chronic left-sided low back pain without sciatica Chronic neck and back pain Procedures PROVIDER ORDERED FOLLOW UP OFFICE/OUTPATIENT NEW HIGH MDM 60-74 MINUTES Sue Mehta, Therapist [address] [place] [address] Referral ID Status Reason Start Date Expiration Date V isits Requested Visits Authorized [id number] Closed PCP Requested Referral 07/02/2022 06/04/2023 1 1 Reason Comments Received Outside Medical Records Reason Comments Chronic Pain Specialty Diagnoses / Procedures Referred By Contac t Referred To Contact Psychology / NEUROLOGY PAIN Diagnoses [employer] for success Procedures VIDEO PSYC/PSYL GRP (ZOOM) Self Harper [place] PSYD [address] [place] [address] Referral ID Status Reason Start Date Expiration Date V isits Requested Visits Authorized [id number] Outside PCP 07/26/2022 10/24/2022 1 1 Reason Onset Date Comments Refill Request 09/03/2022 Refill Request 09/10/2022 Reason Comments Established Patient Reason Comments New Patient Specialty Diagnoses / Procedures Referred By Contac t Referred To Contact [facility] [place] Diagnoses Chronic pain syndrome Procedures CONSULT TO [facility] ([facility]RONIC PAIN) OFFICE/OUTPATIENT NEW HIGH MDM 60-74 MINUTES Harper [place] PSYD [address] [place] [address] Referral ID Status Reason Start Date Expiration Date Visits Requested Visits Authorized [id number] Pending Review PCP Requested Referral 07/26/2022 07/26/2023 1 1 Reason Comments F/U 6 months Reason Comments STD Reason Comments Appointment Reason Comments Radiology US Specialty Diagnoses / Procedures Referred By Contac t Referred To Contact [facility] Diagnoses Right ovarian cyst Procedures US FEMALE PELVIS TRANSVAG US TRANSVAGINAL Lena Olguin APRN.ENGINE TEST CELL TECHNICIAN [address] [address] [facility] [place] [address] Referral ID Status Reason Start Date Expiration Date V isits Requested Visits Authorized [id number] Closed Auto-Generate d Referral 05/04/2022 06/03/2023 1 1 Specialty Diagnoses / Procedures Referred By Contac t Referred To Contact [facility] Diagnoses Pelvic pain in female Procedures US FEMALE PELVIS TRANSVAG US TRANSVAGINAL Lena Olguin, SCREEN EXAMINER.ENGINE TEST CELL TECHNICIAN [address] [place] [address] [place] [address] Referral ID Status Reason Start Date Expiration Date V isits Requested Visits Authorized [id number] Closed Auto-Generate d Referral 05/02/2022 06/01/2023 1 1 Reason Comments Sinus Problem sinus pressure, drai nage, cough, loss of voice and sore throat x 2 days Reason Comments Follow Up med follow up- adder rall Reason Comments Orders MRI Reason Comments Physical Specialty Diagnoses / Procedures Referred By Contac t Referred To Contact [facility] Diagnoses Cervicalgia Chronic pain syndrome Procedures MRI CERVICAL SPINE WO IVCON MRI SPINAL CANAL CERVICAL W/O CONTRAST MATRL Yana Parikh, SCREEN EXAMINER.ENGINE TEST CELL TECHNICIAN [address] [place] [address] [place] [address] Referral ID Status Reason Start Date Expiration Date V isits Requested Visits Authorized [id number] Closed Auto-Generate d Referral 01/06/2023 03/07/2023 1 1 Reason Comments white coated tongue X 4 days Reason Comments Follow Up meds- adderall Reason Comments STD Screening Reason Comments Orders Reason Comments Lab Orders Reason Comments Posttraumatic Stress Disorder Specialty Diagnoses / Procedures Referred By Contac t Referred To Contact Diagnoses Traumatic brain injury with loss of consciousness, sequela (HCC) Generalized anxiety disorder Depression, unspecified depression type Procedures CONSULT TO HOLISTIC PSYCHOTHERAPY PSYCHIATRIC DIAGNOSTIC EVALUATION Suzi Rodriguez PA-C [address] [place] [address] Reason Comments Future Appointment Reason Comments Mouth/Lip Problem X2-3 weeks Reason Onset Date Comments Refill Request 07/31/2023 Reason Comments Recheck 3 month follow up Reason Comments Cough Sore throat, drainag e, nasal congestion, fatigue, x 5 days Reason Comments Recheck Medication follow up Reason Comments PROBLEM VISIT Reason Comments Well Woman Reason Comments requesting TB blood test Reason Comments Letter Request Reason Comments Physical Physical, follow up with medication for adderall Reason Comments Appointment Cancelled Reason Comments Patient Update Medication Request Reason Comments Problem Visit Reason Onset Date Comments Refill Request 04/22/2024 Reason Onset Date Comments Refill Request 05/11/2024 Reason Onset Date Comments Refill Request 05/21/2024 Reason Comments Recheck Follow up oral thrus h Reason Comments Follow Up 3 months Reason Onset Date Comments Refill Request 04/26/2024 Reason Comments PT Eval Reason Comments Spirometry Specialty Diagnoses / Procedures Referred By Contac t Referred To Contact [facility] Diagnoses SOB (shortness of breath) Procedures SPIROMETRY - BASELINE AND POST DILATOR BRNCDILAT RSPSE SPMTRY PRE&POST-BRNCDILAT ADMN Gaby Solis MD [address] [place] [address] Phone: tel: fax: [facility] [address] [address] Referral ID Status Reason Start Date Expiration Date V isits Requested Visits Authorized [id number] Closed Auto-Generate d Referral 06/21/2024 07/21/2025 1 1 Specialty Diagnoses / Procedures Referred By Contac t Referred To Contact [facility] Diagnoses SOB (shortness of breath) Procedures LUNG VOLUMES Gaby Solis MD [address] [place] [address] Phone: tel: fax: [facility] [address] [address] Referral ID Status Reason Start Date Expiration Date V isits Requested Visits Authorized [id number] Closed Auto-Generate d Referral 06/22/2024 02/23/2025 1 1 Reason Onset Date Comments Refill Request 07/28/2024 Reason Comments Problem Visit Reason Comments mouth poroblem Since 04/20 has had d ry mouth and burning tongue. Has tried several meds for this. Specialty Diagnoses / Procedures Referred By Contac t Referred To Contact Ent - Otolaryngology Diagnoses Burning tongue Procedures CONSULT TO ENT OFFICE/OUTPATIENT NEW HIGH MDM 60 MINUTES Older, PERI Curry.ENGINE TEST CELL TECHNICIAN [address] [place] [address] Phone: tel: fax: Referral ID Status Reason Start Date Expiration Date V isits Requested Visits Authorized [id number] Closed PCP Requested Referral 06/02/2024 06/02/2025 1 1 Care Teams (unrecognized sec tion and content) Superintendent Marine Relationship Specialty Start Date End Date Gaby Solis MD [address] [place] [address] PCP - General Internal Medicine 04/02/17 Superintendent Marine Relationship Specialty Start Date End Date Gaby Solis MD [address] [place] [address] PCP - General Internal Medicine 04/02/17 Superintendent Marine Relationship Specialty Start Date End Date Gaby Solis MD [address] [place] [address] PCP - General Internal Medicine 04/02/17 Superintendent Marine Relationship Specialty Start Date End Date Gaby Solis MD [address] [place] [address] PCP - General Internal Medicine 04/02/17 Superintendent Marine Relationship Specialty Start Date End Date Gaby Solis MD [address] [place] [address] PCP - General Internal Medicine 04/02/17 Superintendent Marine Relationship Specialty Start Date End Date Gaby Solis MD [address] [place] [address] PCP - General Internal Medicine 04/02/17 Superintendent Marine Relationship Specialty Start Date End Date Gaby Solis MD [address] [place] [address] PCP - General Internal Medicine 04/02/17 Superintendent Marine Relationship Specialty Start Date End Date Gaby Solis MD [address] [place] [address] PCP - General Internal Medicine 04/02/17 Superintendent Marine Relationship Specialty Start Date End Date Gaby Solis MD [address] [place] [address] PCP - General Internal Medicine 04/02/17 Superintendent Marine Relationship Specialty Start Date End Date Gaby Solis MD [address] [place] [address] PCP - General Internal Medicine 04/02/17 Superintendent Marine Relationship Specialty Start Date End Date Gaby Solis MD [address] [place] [address] PCP - General Internal Medicine 04/02/17 Superintendent Marine Relationship Specialty Start Date End Date Gaby Solis MD [address] [place] [address] PCP - General Internal Medicine 04/02/17 Superintendent Marine Relationship Specialty Start Date End Date Gaby Solis MD [address] [place] [address] PCP - General Internal Medicine 04/02/17 Superintendent Marine Relationship Specialty Start Date End Date Gaby Solis MD [address] [place] [address] PCP - General Internal Medicine 04/02/17 Superintendent Marine Relationship Specialty Start Date End Date Gaby Solis MD [address] [place] [address] PCP - General Internal Medicine 04/02/17 Superintendent Marine Relationship Specialty Start Date End Date Gaby Solis MD [address] [place] [address] PCP - General Internal Medicine 04/02/17 Superintendent Marine Relationship Specialty Start Date End Date Gaby Solis MD [address] [place] [address] PCP - General Internal Medicine 04/02/17 Superintendent Marine Relationship Specialty Start Date End Date Gaby Solis MD [address] [place] [address] PCP - General Internal Medicine 04/02/17 Superintendent Marine Relationship Specialty Start Date End Date Gaby Solis MD [address] [place] [address] PCP - General Internal Medicine 04/02/17 Superintendent Marine Relationship Specialty Start Date End Date Gaby Solis MD [address] [place] [address] PCP - General Internal Medicine 04/02/17 Superintendent Marine Relationship Specialty Start Date End Date Gaby Solis MD [address] [place] [address] PCP - General Internal Medicine 04/02/17 Superintendent Marine Relationship Specialty Start Date End Date Gaby Solis MD [address] [place] [address] PCP - General Internal Medicine 04/02/17 Superintendent Marine Relationship Specialty Start Date End Date Gaby Solis MD [address] [place] [address] PCP - General Internal Medicine 04/02/17 Superintendent Marine Relationship Specialty Start Date End Date Gaby Solis MD [address] [place] [address] PCP - General Internal Medicine 04/02/17 Superintendent Marine Relationship Specialty Start Date End Date Gaby Solis MD [address] [place] [address] PCP - General Internal Medicine 04/02/17 Superintendent Marine Relationship Specialty Start Date End Date Gaby Solis MD [address] [place] [address] PCP - General Internal Medicine 04/02/17 Superintendent Marine Relationship Specialty Start Date End Date Gaby Solis MD [address] [place] [address] PCP - General Internal Medicine 04/02/17 Superintendent Marine Relationship Specialty Start Date End Date Gaby Solis MD [address] [place] [address] PCP - General Internal Medicine 04/02/17 Superintendent Marine Relationship Specialty Start Date End Date Gaby Solis MD [address] [place] [address] PCP - General Internal Medicine 04/02/17 Superintendent Marine Relationship Specialty Start Date End Date Gaby Solis MD [address] [place] [address] PCP - General Internal Medicine 04/02/17 Superintendent Marine Relationship Specialty Start Date End Date Gaby Solis MD [address] [place] [address] PCP - General Internal Medicine 04/02/17 Superintendent Marine Relationship Specialty Start Date End Date Gaby Solis MD [address] [place] [address] PCP - General Internal Medicine 04/02/17 Superintendent Marine Relationship Specialty Start Date End Date Gaby Solis MD [address] [place] [address] PCP - General Internal Medicine 04/02/17 Superintendent Marine Relationship Specialty Start Date End Date Gaby Solis MD [address] [place] [address] PCP - General Internal Medicine 04/02/17 Superintendent Marine Relationship Specialty Start Date End Date Gaby Solis MD [address] [place] [address] PCP - General Internal Medicine 04/02/17 Superintendent Marine Relationship Specialty Start Date End Date Gaby Solis MD [address] [place] [address] PCP - General Internal Medicine 04/02/17 Superintendent Marine Relationship Specialty Start Date End Date Gaby Solis MD [address] [place] [address] PCP - General Internal Medicine 04/02/17 Superintendent Marine Relationship Specialty Start Date End Date Gaby Solis MD [address] [place] [address] PCP - General Internal Medicine 04/02/17 Superintendent Marine Relationship Specialty Start Date End Date Gaby Solis MD [address] [place] [address] PCP - General Internal Medicine 04/02/17 Superintendent Marine Relationship Specialty Start Date End Date Gaby Solis MD [address] [place] [address] PCP - General Internal Medicine 04/02/17 Superintendent Marine Relationship Specialty Start Date End Date Gaby Solis MD [address] [place] [address] PCP - General Internal Medicine 04/02/17 Superintendent Marine Relationship Specialty Start Date End Date Gaby Solis MD [address] [place] [address] PCP - General Internal Medicine 04/02/17 Superintendent Marine Relationship Specialty Start Date End Date Gaby Solis MD [address] [place] [address] PCP - General Internal Medicine 04/02/17 Superintendent Marine Relationship Specialty Start Date End Date Gaby Solis MD [address] [place] [address] PCP - General Internal Medicine 04/02/17 Superintendent Marine Relationship Specialty Start Date End Date Gaby Solis MD [address] [place] [address] PCP - General Internal Medicine 04/02/17 Superintendent Marine Relationship Specialty Start Date End Date Gaby Solis MD [address] [place] [address] PCP - General Internal Medicine 04/02/17 Superintendent Marine Relationship Specialty Start Date End Date Gaby Solis MD [address] [place] [address] PCP - General Internal Medicine 04/02/17 Superintendent Marine Relationship Specialty Start Date End Date Gaby Solis MD [address] [place] [address] PCP - General Internal Medicine 04/02/17 Superintendent Marine Relationship Specialty Start Date End Date Gaby Solis MD [address] [place] [address] PCP - General Internal Medicine 04/02/17 Superintendent Marine Relationship Specialty Start Date End Date Gaby Solis MD [address] [place] [address] PCP - General Internal Medicine 04/02/17 Suzi Rodriguez PA-C [address] [place] [address] [employer] Family Medicine 02/01/24 Antoinette Anthony APRN.ENGINE TEST CELL TECHNICIAN [address] [place] [address] [employer] Internal Medicine 02/01/24 Meghan Godoy PA-C [address] [place] [address] [employer] [facility] Family Medicine 02/01/24 Superintendent Marine Relationship Specialty Start Date End Date Gaby Solis MD [address] [place] [address] PCP - General Internal Medicine 04/02/17 Suzi Rodriguez PA-C [address] [place] [address] [employer] [facility] Family Medicine 02/01/24 Antoinette Anthony, SCREEN EXAMINER.ENGINE TEST CELL TECHNICIAN [address] [place] [address] [employer] Internal Medicine 02/01/24 Meghan Godoy PA-C [address] [place] [address] [employer] [facility] Family Medicine 02/01/24 Superintendent Marine Relationship Specialty Start Date End Date Gaby Solis MD [address] [place] [address] PCP - General Internal Medicine 04/02/17 Suzi Rodriguez PA-C [address] [place] [address] [employer] Family Medicine 02/01/24 Antoinette Anthony APRN.ENGINE TEST CELL TECHNICIAN [address] [place] [address] [employer] Internal Medicine 02/01/24 Meghan Godoy PA-C [address] [place] [address] [employer] [facility] [employer] [facility] Family Medicine 02/01/24 Superintendent Marine Relationship Specialty Start Date End Date Gaby Solis MD [address] [place] [address] PCP - General Internal Medicine 04/02/17 Suzi Rodriguez PA-C [address] [place] [address] [employer] [facility] Family Medicine 02/01/24 Antoinette Anthony, SCREEN EXAMINER.ENGINE TEST CELL TECHNICIAN [address] [place] [address] [employer] Internal Medicine 02/01/24 Meghan Godoy PA-C [address] [place] [address] [employer] [facility] Family Medicine 02/01/24 Superintendent Marine Relationship Specialty Start Date End Date Gaby Solis MD [address] [place] [address] PCP - General Internal Medicine 04/02/17 Suzi Rodriguez PA-C [address] [place] [address] [employer] [facility] Family Medicine 02/01/24 Antoinette Anthony APRN.ENGINE TEST CELL TECHNICIAN [address] [place] [address] [employer] Internal Medicine 02/01/24 Meghan Godoy PA-C [address] [place] [address] [employer] [facility] [employer] [facility] Family Medicine 02/01/24 Superintendent Marine Relationship Specialty Start Date End Date Gaby Solis MD [address] [place] [address] PCP - General Internal Medicine 04/02/17 Suzi Rodriguez PA-C [address] [place] [address] [employer] [facility] Family Medicine 02/01/24 Antoinette Anthony APRN.ENGINE TEST CELL TECHNICIAN [address] [place] [address] [employer] Internal Medicine 02/01/24 Meghan Godoy PA-C [address] [place] [address] [employer] [facility] [employer] [facility] Family Medicine 02/01/24 Superintendent Marine Relationship Specialty Start Date End Date Gaby Solis MD [address] [place] [address] PCP - General Internal Medicine 04/02/17 Suzi Rodriguez PA-C [address] [place] [address] [facility] 02/01/24 Antoinette Anthony APRN.ENGINE TEST CELL TECHNICIAN [address] [place] [address] [employer] Internal Medicine 02/01/24 Meghan Godoy PA-C [address] [place] [address] [facility] 02/01/24 Superintendent Marine Relationship Specialty Start Date End Date Gaby Solis MD [address] [place] [address] PCP - General Internal Medicine 04/02/17 Suzi Rodriguez PA-C [address] [place] [address] [facility] 02/01/24 Antoinette Anthony APRN.ENGINE TEST CELL TECHNICIAN [address] [place] [address] [employer] Internal Medicine 02/01/24 Meghan Godoy PA-C [address] [place] [address] [facility] 02/01/24 Superintendent Marine Relationship Specialty Start Date End Date Gaby Solis MD [address] [place] [address] PCP - General Internal Medicine 04/02/17 Suzi Rodriguez PA-C [address] [place] [address] [employer] [facility] Family Medicine 02/01/24 Antoinette Anthony APRN.ENGINE TEST CELL TECHNICIAN [address] [place] [address] [employer] Internal Medicine 02/01/24 Meghan Godoy PA-C [address] [place] [address] [employer] [facility] [employer] [facility] Family Medicine 02/01/24 Superintendent Marine Relationship Specialty Start Date End Date Gaby Solis MD [address] [place] [address] PCP - General Internal Medicine 04/02/17 Suzi Rodriguez PA-C [address] [place] [address] [employer] [facility] Family Medicine 02/01/24 Antoinette Anthony APRN.ENGINE TEST CELL TECHNICIAN [address] [place] [address] [employer] Internal Medicine 02/01/24 Meghan Godoy PA-C [address] [place] [address] [employer] [facility] [employer] [facility] Family Medicine 02/01/24 Superintendent Marine Relationship Specialty Start Date End Date Gaby Solis MD [address] [place] [address] PCP - General Internal Medicine 04/02/17 Antoinette Anthony APRN.ENGINE TEST CELL TECHNICIAN [address] [place] [address] [employer] Internal Medicine 02/01/24 Superintendent Marine Relationship Specialty Start Date End Date Gaby Solis MD [address] [place] [address] PCP - General Internal Medicine 04/02/17 Antoinette Anthony APRN.ENGINE TEST CELL TECHNICIAN [address] [place] [address] [employer] Internal Medicine 02/01/24 Superintendent Marine Relationship Specialty Start Date End Date Gaby Solis MD [address] [place] [address] PCP - General Internal Medicine 04/02/17 Antoinette Anthony APRN.ENGINE TEST CELL TECHNICIAN [address] [place] [address] [employer] Internal Medicine 02/01/24 Superintendent Marine Relationship Specialty Start Date End Date Gaby Solis MD [address] [place], [place] [address] [phone] PCP - General Internal Medicine 04/02/17 Antoinette Anthony APRN.ENGINE TEST CELL TECHNICIAN [address] [place] [address] [employer] Internal Medicine 02/01/24 Superintendent Marine Relationship Specialty Start Date End Date Gaby Solis MD [address] [place], [place] [address] PCP - General Internal Medicine 04/02/17 Suzi Rodriguez PA-C [address] [place] [address] [employer] [facility] Family Medicine 02/01/24 05/16/24 Antoinette Anthony APRN.ENGINE TEST CELL TECHNICIAN [address] [facility] [place] [address] [employer] Internal Medicine 02/01/24 Meghan Godoy PA-C [address] [place] [address] [facility] 02/01/24 05/16/24 Superintendent Marine Relationship Specialty Start Date End Date Gaby Solis MD [address] [place] [address] PCP - General Internal Medicine 04/02/17 Antoinette Anthony APRN.ENGINE TEST CELL TECHNICIAN [address] [place] [address] [facility] Internal Medicine 02/01/24 Superintendent Marine Relationship Specialty Start Date End Date Gaby Solis MD [address] [place] [address] PCP - General Internal Medicine 04/02/17 Antoinette Anthony APRN.ENGINE TEST CELL TECHNICIAN [address] [place] [address] [employer] Internal Medicine 02/01/24 Superintendent Marine Relationship Specialty Start Date End Date Gaby Solis MD [address] [place] [address] PCP - General Internal Medicine 04/02/17 Antoinette Anthony APRN.ENGINE TEST CELL TECHNICIAN [address] [facility] [place] [address] [employer] Internal Medicine 02/01/24 Superintendent Marine Relationship Specialty Start Date End Date Gaby Solis MD [address] [place] [address] PCP - General Internal Medicine 04/02/17 Antoinette Anthony APRN.ENGINE TEST CELL TECHNICIAN [address] [facility] [place] [address] [employer] Internal Medicine 02/01/24 Superintendent Marine Relationship Specialty Start Date End Date Gaby Solis MD [address] [place] [address] PCP - General Internal Medicine 04/02/17 Antoinette Anthony APRN.ENGINE TEST CELL TECHNICIAN [address] [facility] [place] [address] [employer] Internal Medicine 02/01/24 Superintendent Marine Relationship Specialty Start Date End Date Gaby Solis MD [address] [place] [address] PCP - General Internal Medicine 04/02/17 Antoinette Anthony APRN.ENGINE TEST CELL TECHNICIAN [address] [facility] [place] [address] [employer] Internal Medicine 02/01/24 Superintendent Marine Relationship Specialty Start Date End Date Gaby Solis MD [address] [place] [address] PCP - General Internal Medicine 04/02/17 Antoinette Anthony APRN.ENGINE TEST CELL TECHNICIAN [address] [facility] [place] [address] [employer] Internal Medicine 02/01/24 Superintendent Marine Relationship Specialty Start Date End Date Gaby Solis MD [address] [place] [address] PCP - General Internal Medicine 04/02/17 Older, PERI Curry.ENGINE TEST CELL TECHNICIAN [address] [place] [address] [employer] Internal Medicine 02/01/24 FOR RECORDS PERTAINING TO PATIENTS WHO ARE OR HAVE BEEN ENROLLED IN A CHEMICAL DEPENDENCY/SUBSTANCEABUSE PROGRAM, SOME INFORMATION MAY BE OMITTED. This clinical summary was aggregated from multiple sources. Caution should be exercised in using it in the provision of clinical care. This summary normalizes information from multiple sources, and as a consequence, information in this document may materially change the coding, format and clinical context of patient data. In addition, data may be omitted in some cases. CLINICAL DECISIONS SHOULD BE BASED ON THE PRIMARY CLINICAL RECORDS. [employer] [facility]. provides no warranty or guarantee of the accuracy or completeness of information in this document.
== END | disposition home or self-care (01) ==
LOC: LABSPEC 17:06
PROVIDERS: PCP Internal Medicine
DX: J02.9 Acute pharyngitis, unspecified (principal)
CPT/HCPCS: 87070; 87077